=== PATIENT | female | born 1950 | race Caucasian/White ===

== ENCOUNTER 2017-07-16 10:00 | Outpatient (RCR) | payer OTHER, SELFPAY ==
--- NOTE | 2017-03-10 16:22 | HP.PTEVAL_ITS ---
Patient's Visit Information DURAN DEVI is a 66 year old F referred to Physical Therapy by Tu Dotson DO with a diagnosis of right proximal humerus fx ,s/p reverse total shoulder with tuber repair. Date of Evaluation: 03/10/17 Physical Therapist: Cristhian Armando PT, - Visit Plan Frequency: 2x /Week Duration: 12 WEEKS Plan: see PROTOCAL. SLING 6WEEKS. NO SHOULDER IR,ADDUCTION,CROSS BODY MOVEMENTS. FOWARD ELEVATION SCAPATION. ER ARM AT SIDE 30DEGREES,FE 110 DEGRRES ,ABD 75 DEGREES,ER 75 DEGGREES - Subjective Subjective: This 66 y/o female presents to physical therapy with right proximal humerus fx with s/p reverse total shoulder with tubar repair om Feb 25 2017 at [facility]. Patient fell Feb 06 at home walking with dog DOI went to ER x-rays done .Patient also fx 5th finger. Patient was referred to Dr Dotson but needed CATSCAN showed proximal humerus fx. D/C to Feb 27 with sling. Patient is 2weeks post . Patient needs sling on for 6weeks ,x-rays done today every looked good. Patient had musculotaneous nerve palsy. Patient has mild parathesia fingers. Patient is limited with all ADL'S and self hygine witgh right UE. Uble to perform housework activities.Patient sleeps in recliner. SOCAIL: . VOCATION: retired - Pain Right Shoulder Pain Intensity (Out of 10): 0 Pain Intensity Range: 10 - Objective POSTURE: rounded shoulders head foward. SLING INACT. NEUR0: inact c/o parathesia tingling fingers,reflexes inact. SKIN: inscion well approximate. AROM: wrist flexion /extension WFL,unable elbow flexion. PROM: supine shoulder flexion 80 degrees ,ER -10 degrees from 0. MMT : wrist flexion /extension 4-/ 5 bicep 2/5,tricep 3-/5 right - Goals Goal 1:: Independant with HEP Goal Time Frame: 12-16 Weeks Goal 2:: Decrease shoulder pain by 75% or greater to improve function and ADL'S Goal Time Frame: 12-16 Weeks Goal 3:: Patient improve active elevation 110 degrees,ER 75 degrees to improve function. Goal Time Frame: 12-16 Weeks Goal 4:: Patient increase strength deltoid 3+/5 ,and elbow/tricep 4-/5 to improve function with ADL'S . Goal Time Frame: 12-16 Weeks Goal 5:: Patient improve ADL'S and self hygine above 90 degrees with min limiations Goal Time Frame: 12-16 Weeks - Rehabilitation Potential Physical Therapy Diagnosis: This patient fell fx humerus thus underwent s/p reverse total shoulder on Feb 25 2017. thus has impairments with ROM , strength ,function ,ADL'S and self hygine thus benifot from skilled pt Rehabilitation Potential: Good - Anticipated Interventions Patient/Client Instruction: Educate patient on: Condition, Plan of Care For the Purpose of:: To decrease pain, To increase ROM, To improve muscle performance and motor function, To improve ability to perform ADL's, To increase tolerance to activity/condition/position, To improve performance and independence with ADL's, To improve ability of physical actions for home/ community/work/leisure, To improve health of tissue, To decrease soft tissue restriction, To assume or resume ADL's, To improve ability to perform tasks related to life management, To improve tolerance to ADL's Therapeutic Exercise to Include: Strength training, Postural training, Passive ROM, Active ROM Comment: SEE PROTACOL For the Purpose of:: To decrease pain, To improve muscle performance and motor function, To improve ability to perform ADL's, To increase tolerance to activity /condition/position, To improve performance and independence with ADL's, To improve ability of physical actions for home/community/work/leisure, To improve health of tissue, To increase flexibility/ROM, To assume or resume ADL's, To improve ability to perform tasks related to life management Manual Therapy Techniques to Include: Passive ROM Comment: SHOULDER For the Purpose of:: To increase ROM, To increase flexibility/ROM IF ES: Yes Cryotherapy (ice pack, ice massage): Yes Thermo therapy (hot pack): Yes For the Purpose of:: To decrease pain, To decrease swelling/inflammation, To improve health of tissue, To decrease soft tissue restriction Thank you for the opportunity to evaluate your patient. For Medicare and Medicare HMO plans, please review the plan of care and approve it. It will need to be FAXED BACK to us at [phone] for Medicare purposes. Please let me know if there are questions or concerns regarding this plan of care. Physician Signature: Date:
--- NOTE | 2017-07-16 11:33 | HP.PTDCSUM ---
HP - PT D/C Summary It has been my pleasure to treat DURAN DEVI under orders from Tu Dotson DO, for the diagnosis of right proximal humerus fx ,s/p reverse total shoulder with tuber repair for a total of 24 visit(s). Discharge Date: 07/16/17 Please see the following information for a summary of their discharge status. - Subjective Subjective: Doing well ready for d/c. Able to do my ADL'S and self hygine - Pain Right Shoulder Pain Intensity (Out of 10): 0 - Overall Improvement % Improvement: 75 - Objective Objective/Function: POSTURE: mild foward shoulder. AROM: shoulder flexion 13o degrees,abd in scap plane 120 degrees ,ER 50 degrees. MMT: RTC 4/5 ,SUPRS 4-/5 DELTOID ANTERIOR 4-/5/,LATERAL 3+/5,BICEP/TRICEP 4/5 ,WRIST 4/5 - Goals Goal 1:: Independant with HEP Goal Progress: Goal Met Goal 2:: Decrease shoulder pain by 75% or greater to improve function and ADL'S Goal 3:: Patient improve active elevation 110 degrees,ER 75 degrees to improve function. Goal Progress: Goal Met Goal 4:: Patient increase strength deltoid 3+/5 ,and elbow/tricep 4-/5 to improve function with ADL'S . Goal Progress: Goal Met Goal 5:: Patient improve ADL'S and self hygine above 90 degrees with min limiations Goal Progress: Goal Met - Plan Plan: D/C TO HEP - D/C Information Discharge Comments: D/C TO HEP If there are questions or concerns regarding this patient's physical therapy, please feel free to call me at [phone]. Thank you for the referral of this patient. Sincerely, Cristhian Armando, PT,
== END 2017-07-16 19:00 | disposition home or self-care (01) ==
LOC: PT 10:00
PROVIDERS: Family Provider Family Medicine; PCP Family Medicine; Visit Provider Orthopaedic Surgery
DX: S42.201D Unspecified fracture of upper end of right humerus, subsequent encounter for fracture with routine healing (principal)
CPT/HCPCS: 97110; 97140; 97162

== ENCOUNTER → 2017-08-11 09:31 | Outpatient (CLI) | payer MEDICARE, OTHER, SELFPAY ==
--- NOTE | 2017-08-11 09:35 | RAD_ITS ---
STUDY: X-RAY - RIGHT SHOULDER REASON FOR EXAM: Female, 67 years old. Postoperative evaluation. TECHNIQUE: 3 view(s) of the shoulder. COMPARISON: Comparison is made with prior examination dated May 07, 2017. FINDINGS: The patient is status post right reverse shoulder replacement. There is good alignment. The soft tissue structures are unremarkable. Normal visualized pulmonary apex. RAD/Shoulder min 2 Views IMPRESSION: Stable appearance of the right reverse shoulder replacement. Electronically Signed: Pablo Sarmiento MD at 15:55 EST Tel [phone], Service support ,
== END ==
PROVIDERS: Family Provider Family Medicine; PCP Family Medicine; Visit Provider Orthopaedic Surgery
DX: M25.511 Pain in right shoulder (principal)
CPT/HCPCS: 73030

== ENCOUNTER 2018-01-08 13:30 | Outpatient (RCR) | payer MEDICARE, OTHER, SELFPAY | END 2018-01-13 23:59 | LOC: DC 13:30 | PROVIDERS: Family Provider Family Medicine; PCP Family Medicine; Visit Provider Family Medicine | DX: E11.9 Type 2 diabetes mellitus without complications (principal); E03.9 Hypothyroidism, unspecified; E55.9 Vitamin D deficiency, unspecified; E87.1 Hypo-osmolality and hyponatremia | CPT/HCPCS: 97802; G0108 ==

== ENCOUNTER 2018-02-02 09:32 | Outpatient (RCR) | payer MEDICARE, OTHER, SELFPAY | END 2018-02-13 23:59 | LOC: DC 09:32 | PROVIDERS: Family Provider Family Medicine; PCP Family Medicine; Visit Provider Family Medicine | DX: E11.9 Type 2 diabetes mellitus without complications (principal); E03.9 Hypothyroidism, unspecified; E55.9 Vitamin D deficiency, unspecified; E87.1 Hypo-osmolality and hyponatremia; Z71.3 Dietary counseling and surveillance | CPT/HCPCS: 97803 ==

== ENCOUNTER → 2018-03-05 08:14 | Outpatient (CLI) | payer MEDICARE, OTHER, SELFPAY ==
[2018-03-05 09:01] LABS: Absolute Lymphocyte Count 2.44 X10^3/ul (0.83-4.51); Absolute Neutrophil Count 6.8 X10^3/uL (2.0-7.7); Basophil# 0.07 X10^3/uL; Basophil% 0.7 % (0-1); Eosinophil# 0.39 X10^3/uL; Eosinophils% 3.8 % (0-5); Hematocrit 41.7 % (37-47); Hemoglobin 13.8 g/dl (12.0-15.0); Lymphocyte # 2.44 X10^3/ul (4.0); Lymphocyte % 23.6 % (19-41); Mean Corp Hgb Conc 33.1 g/gl (32-36); Mean Corpuscular Volume 84.6 fL (81-99); Mean Platelet Vol. 11.8 fl (6.2-12.0); Monocyte# 0.61 X10^3/uL; Monocyte% 5.9 % (0-10); Neutrophil # 6.83 X10^3/uL (2.7-7.7); Neutrophil % 65.9 % (47-70); Platelet Count 197 K/mm3 (150-450); RBC Distribution Width CV 13.7 % (11.6-14.6); RBC Distribution Width SD 42.1 fl (35.1-43.9); Red Blood Count 4.93 M/mm3 (4.2-5.4); White Blood Count 10.4 K/mm3 (4.4-11.0)
[2018-03-05 09:02] LABS: POSITIVE COUNT NO; POSITIVE DIFFERENTIAL NO; POSITIVE MORPHOLOGY NO
[2018-03-05 09:24] LABS: Microalbumin:Creatinine Ratio 256.3 mg/g CRE (<30 mg/g CRE)
[2018-03-05 09:32] LABS: ALB/GLOB Ratio 0.7 RATIO (0.9-2.4); AST(SGOT) 20 U/L (15-37); Alanine Aminotransfer ALT/SGPT 29 U/L (13-56); Albumin, Serum 3.7 g/dL (3.2-5.0); Alkaline Phosphatase 109 U/L (45-117); Anion Gap 8 (5-15); BUN 12 mg/dL (7-18); BUN/Creat Ratio 20.5 RATIO (10-20); Calcium,Total 9.3 mg/dL (8.5-10.1); Chloride 104 mmol/L (98-107); Cholesterol 178 mg/dL (200); Creatinine, Serum 0.58 mg/dL (0.55-1.02); EST Glomerular Filtration Rate 110 mL/min (>60); Est Glom Filt Rate - Afr Amer 133 mL/min (>60); Glucose 107 mg/dL (74-106); High Density Lipoprotein 50 mg/dL; Potassium 3.8 mmol/L (3.5-5.1); Protein, Total 8.7 g/dL (6.4-8.2); Sodium Level 136 mmol/L (136-145); T4 Free Direct 1.15 ng/dL (0.76-1.46); Thyroid Stim Hormone (TSH) 1.57 uIU/mL (0.358-3.74); Triglycerides 124 mg/dL; Very Low Density Lipoprotein 25 mg/dL (5-40)
[2018-03-05 09:33] LABS: Vitamin D,25 Hydroxy 25.7 ng/mL (29.95-100.01)
== END ==
PROVIDERS: Family Provider Family Medicine; PCP Family Medicine; Visit Provider Family Medicine
DX: E11.9 Type 2 diabetes mellitus without complications (principal); E03.9 Hypothyroidism, unspecified; E87.1 Hypo-osmolality and hyponatremia; E55.9 Vitamin D deficiency, unspecified
CPT/HCPCS: 36415; 80053; 80061; 82043; 82306; 82570; 83036; 84439; 84443; 85025

== ENCOUNTER 2018-03-05 09:00 | Outpatient (RCR) | payer MEDICARE, OTHER, SELFPAY | END 2018-03-15 23:59 | LOC: DC 09:00 | PROVIDERS: Family Provider Family Medicine; PCP Family Medicine; Visit Provider Family Medicine | DX: E11.9 Type 2 diabetes mellitus without complications (principal); E03.9 Hypothyroidism, unspecified; E55.9 Vitamin D deficiency, unspecified; E87.1 Hypo-osmolality and hyponatremia; Z71.3 Dietary counseling and surveillance | CPT/HCPCS: 97803; G0109 ==

== ENCOUNTER → 2018-03-05 14:05 | Outpatient (CLI) | payer MEDICARE, OTHER, SELFPAY ==
--- NOTE | 2018-03-05 14:17 | RAD_ITS ---
STUDY: X-RAY - RIGHT SHOULDER REASON FOR EXAM: Female, 67 years old. Follow-up of total shoulder arthroplasty. TECHNIQUE: 3 view(s) of the shoulder. COMPARISON: August 11, 2017 FINDINGS: The total shoulder arthroplasty is unchanged in position or alignment. There is minimal resorption around the humeral component of the total shoulder arthroplasty unchanged. There is generalized osteopenia unchanged. The soft tissue structures are unremarkable. Normal visualized pulmonary apex. RAD/Shoulder min 2 Views IMPRESSION: Stable osteopenia with uncomplicated total shoulder arthroplasty. Electronically Signed: Adelso Osullivan MD at 18:25 EDT , Service support ,
== END ==
PROVIDERS: Family Provider Family Medicine; PCP Family Medicine; Visit Provider Orthopaedic Surgery
DX: M25.511 Pain in right shoulder (principal); Z71.3 Dietary counseling and surveillance; E11.9 Type 2 diabetes mellitus without complications; E03.9 Hypothyroidism, unspecified; E55.9 Vitamin D deficiency, unspecified; E87.1 Hypo-osmolality and hyponatremia
CPT/HCPCS: 36415; 73030; 80053; 80061; 82043; 82306; 82570; 83036; 84439; 84443; 85025; 97803

== ENCOUNTER 2018-03-19 08:42 | Outpatient (RCR) | payer MEDICARE, OTHER, SELFPAY | END 2018-04-15 23:59 | LOC: DC 08:42 | PROVIDERS: Family Provider Family Medicine; PCP Family Medicine; Visit Provider Family Medicine | DX: E11.9 Type 2 diabetes mellitus without complications (principal); E03.9 Hypothyroidism, unspecified; E55.9 Vitamin D deficiency, unspecified; E87.1 Hypo-osmolality and hyponatremia; Z71.3 Dietary counseling and surveillance | CPT/HCPCS: G0109 ==

== ENCOUNTER 2018-04-22 09:23 | Outpatient (RCR) | payer MEDICARE, OTHER, SELFPAY | END 2018-05-15 23:59 | LOC: DC 09:23 | PROVIDERS: Family Provider Family Medicine; PCP Family Medicine; Visit Provider Family Medicine | DX: E11.9 Type 2 diabetes mellitus without complications (principal); E03.9 Hypothyroidism, unspecified; E55.9 Vitamin D deficiency, unspecified; E87.1 Hypo-osmolality and hyponatremia; Z71.3 Dietary counseling and surveillance | CPT/HCPCS: G0109 ==

== ENCOUNTER 2018-05-20 10:49 | Outpatient (RCR) | payer MEDICARE, OTHER, SELFPAY | END 2018-05-20 23:59 | LOC: DC 10:49 | PROVIDERS: Family Provider Family Medicine; PCP Family Medicine; Visit Provider Family Medicine | DX: E11.9 Type 2 diabetes mellitus without complications (principal); E03.9 Hypothyroidism, unspecified; E55.9 Vitamin D deficiency, unspecified; E87.1 Hypo-osmolality and hyponatremia; Z71.3 Dietary counseling and surveillance | CPT/HCPCS: G0109 ==

== ENCOUNTER → 2018-08-26 07:59 | Outpatient (CLI) | payer MEDICARE, OTHER, SELFPAY ==
[2018-08-26 09:00] LABS: Hemoglobin A1c 8.1 % (4.2-6.3)
[2018-08-26 09:05] LABS: ALB/GLOB Ratio 0.7 RATIO (0.9-2.4); AST(SGOT) 19 U/L (15-37); Alanine Aminotransfer ALT/SGPT 25 U/L (13-56); Albumin, Serum 3.8 g/dL (3.2-5.0); Alkaline Phosphatase 126 U/L (45-117); Anion Gap 9 (5-15); BUN 12 mg/dL (7-18); BUN/Creat Ratio 19.7 RATIO (10-20); Calcium,Total 9.2 mg/dL (8.5-10.1); Chloride 100 mmol/L (98-107); Cholesterol 121 mg/dL (200); Creatinine, Serum 0.61 mg/dL (0.55-1.02); EST Glomerular Filtration Rate 105 mL/min (>60); Est Glom Filt Rate - Afr Amer 126 mL/min (>60); Globulin 5.1 g/dL (2.2-4.2); Glucose 103 mg/dL (74-106); High Density Lipoprotein 45 mg/dL; Protein, Total 8.9 g/dL (6.4-8.2); Sodium Level 134 mmol/L (136-145); Triglycerides 75 mg/dL; Very Low Density Lipoprotein 15 mg/dL (5-40)
[2018-08-26 09:09] LABS: Vitamin D,25 Hydroxy 33.7 ng/mL (29.95-100.01)
[2018-08-26 10:42] LABS: Microalbumin:Creatinine Ratio 280.8 mg/g CRE (<30 mg/g CRE)
[2018-08-27 16:08] LABS: PROEL- A/G Ratio 0.8 (0.7-1.7); PROEL- Albumin 3.6 g/dL (2.9-4.4); PROEL- Alpha-1 Globulin 0.3 g/dL (0.0-0.4); PROEL- Alpha-2 Globulin 1.1 g/dL (0.4-1.0); PROEL- Beta Globulin 1.2 g/dL (0.7-1.3); PROEL- Gamma Globulin 2.2 g/dL (0.4-1.8); PROEL- Globulin, Total 4.8 g/dL (2.2-3.9); PROEL- TOTAL PROTEIN 8.4 g/dL (6.0-8.5)
[2018-08-28 16:08] LABS: PROELU- Alpha-1-Globulin,Ur 5.3 % (.); PROELU- Alpha-2-Globulin,Ur 9.6 % (.); PROELU- Beta Globulin, Ur 11.6 % (.); PROELU- Gamma Globulin, Ur 7.5 % (.); Total Protein, Ur 18.2 mg/dL (Not Estab.)
== END ==
PROVIDERS: Family Provider Family Medicine; PCP Family Medicine; Referring Provider Family Medicine; Visit Provider Family Medicine
DX: Z00.01 Encounter for general adult medical examination with abnormal findings (principal); E11.9 Type 2 diabetes mellitus without complications; E55.9 Vitamin D deficiency, unspecified; R77.1 Abnormality of globulin
CPT/HCPCS: 36415; 80053; 80061; 82043; 82306; 82570; 83036; 84165; 84166

== ENCOUNTER → 2019-02-25 08:20 | Outpatient (CLI) | payer MEDICARE, OTHER, SELFPAY ==
[2019-02-25 10:23] LABS: ALB/GLOB Ratio 0.7 RATIO (0.9-2.4); AST(SGOT) 24 U/L (15-37); Alanine Aminotransfer ALT/SGPT 30 U/L (13-56); Albumin, Serum 3.8 g/dL (3.2-5.0); Alkaline Phosphatase 129 U/L (45-117); Anion Gap 7 (5-15); BUN 13 mg/dL (7-18); BUN/Creat Ratio 20.2 RATIO (10-20); Calcium,Total 9.4 mg/dL (8.5-10.1); Chloride 104 mmol/L (98-107); Cholesterol 191 mg/dL (200); Creatinine, Serum 0.64 mg/dL (0.55-1.02); EST Glomerular Filtration Rate 98 mL/min (>60); Est Glom Filt Rate - Afr Amer 118 mL/min (>60); Globulin 5.3 g/dL (2.2-4.2); Glucose 80 mg/dL (74-106); High Density Lipoprotein 43 mg/dL; Potassium 4.1 mmol/L (3.5-5.1); Protein, Total 9.1 g/dL (6.4-8.2); Sodium Level 137 mmol/L (136-145); Triglycerides 154 mg/dL; Very Low Density Lipoprotein 31 mg/dL (5-40)
[2019-02-25 10:25] LABS: Hemoglobin A1c 8.3 % (4.2-6.3); Microalbumin:Creatinine Ratio 292.9 mg/g CRE (<30 mg/g CRE)
[2019-03-01 16:07] LABS: Immunoglobulin A 409 mg/dL (87-352); Immunoglobulin G 2063 mg/dL (700-1600); PROEL- A/G Ratio 0.8 (0.7-1.7); PROEL- Albumin 3.6 g/dL (2.9-4.4); PROEL- Alpha-1 Globulin 0.2 g/dL (0.0-0.4); PROEL- Beta Globulin 1.2 g/dL (0.7-1.3); PROEL- Gamma Globulin 2.2 g/dL (0.4-1.8); PROEL- Globulin, Total 4.6 g/dL (2.2-3.9); PROEL- TOTAL PROTEIN 8.2 g/dL (6.0-8.5); PROELU- Albumin, Urine 69.1 % (.); PROELU- Alpha-1-Globulin,Ur 3.5 % (.); PROELU- Alpha-2-Globulin,Ur 7.9 % (.); PROELU- Beta Globulin, Ur 12.3 % (.); PROELU- Gamma Globulin, Ur 7.2 % (.); Total Protein, Ur 23.3 mg/dL (Not Estab.)
[2019-03-02 10:41] LABS: Immunofixation Result, Serum Comment: (.); Immunoglobulin M 144 mg/dL (26-217)
== END ==
PROVIDERS: Family Provider Family Medicine; PCP Family Medicine; Referring Provider Family Medicine; Visit Provider Family Medicine
DX: E11.21 Type 2 diabetes mellitus with diabetic nephropathy (principal); D89.2 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, unspecified
CPT/HCPCS: 36415; 80053; 80061; 82043; 82570; 82784; 83036; 84165; 84166; 86334

== ENCOUNTER → 2021-10-11 | Outpatient (CLI) | payer MEDICARE, OTHER, SELFPAY ==
[2021-10-11 16:34] LABS: Pathologist Comment May follow
[2021-10-11 17:25] LABS: Synovial Fld Mononuclear WBC # 3.692 10^3/ul; Synovial Fld Mononuclear WBC % 13.1 %; Synovial Fld Polynuclear WBC % 86.9 %
[2021-10-11 18:30] LABS: RBC /Synovial Fluid 0.004 10^6/uL (0)
[2021-10-11 19:02] LABS: AUTO B FLUID DILUENT BKGD CT WBC <0.1 RBC <0.01 (W<.1,R<.01); Source / Synovial Fluid LEFT KNEE; Source- Body Fluid SYNOVIAL; Viscosity / Synovial Fluid Sl. Viscous (HIGH)
[2021-10-11 19:03] LABS: Appearance /Synovial Fluid Cloudy (CLEAR); Color / Synovial Fluid Yellow (Pale Yellow)
[2021-10-11 19:10] LABS: Lymph 7 %; Monocyte /Synovial Fluid 16 %; Neutrophil 77 % (0-25)
[2021-10-11 19:13] LABS: Body Fluid QC Type(s) BF3Q,BF4Q
[2021-10-14 20:26] LABS: Pathologist Review Reviewed
[2021-10-15 08:49] LABS: PROTEIN, SYNOVIAL FLUID 4.9 g/dL (.)
== END | disposition home or self-care (01) ==
LOC: LABSPEC 16:33
PROVIDERS: PCP Family Medicine; Visit Provider Nurse Practitioner
DX: M17.12 Unilateral primary osteoarthritis, left knee (principal); M25.562 Pain in left knee
CPT/HCPCS: 84157; 89050; 89051; 89060

== ENCOUNTER 2021-11-29 09:49 | Inpatient (IN) | payer MEDICARE, OTHER, SELFPAY ==
[2021-11-29] VITALS (24 sets, daily range): BP systolic 91–178; BP diastolic 54–119; PULSE 60–157; RESP 16–33; TEMP 36.1–36.6; O2SAT 96–100; BMI 27.4; BMI 23.5
--- NOTE | 2021-11-29 10:08 | EKG12_ITS ---
Test Reason : REPEAT Blood Pressure : / mmHG Vent. Rate : 154 BPM Atrial Rate : 141 BPM P-R Int : 000 ms QRS Dur : 094 ms QT Int : 326 ms P-R-T Axes : 000 031 238 degrees QTc Int : 522 ms Atrial fibrillation Marked ST abnormality, possible inferior subendocardial injury Marked ST abnormality, possible anterolateral subendocardial injury Abnormal ECG Confirmed by VICTOR HUGO CROSS, CRISTINA ([id number]), material expeditor NATI HUGO ([id number]) on 11/30/2021 8:58:29 AM Referred By: GERSON Confirmed By:CRISTINA GAY MD
--- NOTE | 2021-11-29 10:08 | RAD_ITS ---
STUDY: X-RAY CHEST REASON FOR EXAM: Female, 71 years old. Dyspnea TECHNIQUE: Single AP portable view of the chest. COMPARISON: None. FINDINGS: EKG electrodes are seen. Mild increased markings at the left lung base suggestive of either atelectasis and/or early infiltrate. There is no demonstrated pleural abnormality. Normal size heart. Normal mediastinum and batool. Normal visualized pulmonary arteries. There is atherosclerotic tortuosity of the aortic arch and descending thoracic aorta. There are diffuse degenerative changes of the visualized thoracic spine. Status post right shoulder replacement. There is no demonstrated abnormality of the visualized soft tissue structures of the upper abdomen. RAD/Chest 1 View (Portable) IMPRESSION: Mild increased markings at the left lung base suggestive of bibasilar atelectasis and/or infiltrate. Electronically Signed: Pablo Sarmiento MD at 11:10 EDT ,
--- NOTE | 2021-11-29 10:09 | EX.ED.DYSGE1 ---
HPI History of Present Illness Chief Complaint: Shortness of Breath Informant: patient and spouse/S.O. Narrative Narrative: 71-year-old male presents to the emergency room in the company of her with a chief complaint of I am tired. She and her are very poor historians and from what I can elicit is that 1 month ago she had an arthrocentesis of her knee. Following that she has become progressively weaker and is not hungry and is very thirsty. Today she felt short of breath. She denies any cough or fever. She notes that she is urinating normally. She has not called any of her doctors to evaluate this weakness. No recent drug changes. She states her blood sugars have been reading high. [facility] Medical History Diabetes Osteoarthritis of left knee Thyroid disease Home Medications levothyroxine 137 mcg tablet 137 mcg PO QODAY 02/06/17 [History Last Taken Unknown] levothyroxine 150 mcg tablet 150 mcg PO QODAY 02/06/17 [History Last Taken 02/25/17 07:00] insulin aspart U-100 100 unit/mL (3 mL) subcutaneous pen (Novolog Flexpen U-100 Insulin aspart) 12 unit subcut BID 10/11/21 [History Last Taken Unknown] insulin detemir U-100 100 unit/mL (3 mL) subcutaneous pen (Levemir FlexTouch U-100 Insulin) 38 unit subcut QHS 10/11/21 [History Last Taken Unknown] Allergy/AdvReac Type Severity Reaction Status Date / Time EGGS Allergy Vomiting Uncoded 11/29/21 09:50 Family History Mother Diabetes Heart disease Father Diabetes Cancer Throat cancer Surgical History H/O: s/p right shoulder surgery Social History (Updated 11/29/21 @ 10:[address] Devin Leal DO) Smoking Status: Former smoker substance use type: does not use ROS ROS ED ROS Narrative Generalized fatigue Constitutional Constitutional ED: Denies chills, fever(s) or weight loss Eyes Eyes: Denies change in vision or diplopia ENT ENT ED: Denies ear pain, rhinorrhea or sore throat Cardiovascular Cardiovascular: Denies chest pain, orthopnea, palpitations or racing heartbeat Respiratory/Chest Respiratory/Chest: Reports dyspnea; Denies cough or orthopnea Gastrointestinal Gastrointestinal: Reports constipation; Denies abdominal pain, diarrhea, nausea or vomiting Genitourinary Genitourinary ED: Denies dysuria, hematuria or urinary frequency Musculoskeletal Musculoskeletal: Reports arthralgias; Denies myalgias or neck pain Integumentary Denies abscess or rash Neurologic Neurologic: Denies headache(s) or weakness Psychiatric Psychiatric: Denies anxiety, depression, suicidal ideation or suicidal thoughts Endocrine Endocrinology: Denies polydipsia, polyphagia or polyuria Allergic/Immunologic Allergic/Immunologic ED: Denies mouth swelling, tongue swelling or urticaria EXAM Physical Exam Const Vital Signs: 11/29/21 09:50 11/29/21 10:37 11/29/21 11:03 Temperature 96.9 F L Temperature Source Temporal Pulse Rate 113 H 118 H Respiratory Rate 26 H 33 H Respiratory Effort Short of Breath Respiratory Pattern Kussmaul Blood Pressure 178/71 H 117/72 Blood Pressure Mean 106 87 Pulse Ox 98 99 Oxygen Delivery Method Room Air Room Air 11/29/21 11:41 Temperature Temperature Source Pulse Rate 143 H Respiratory Rate 30 H Respiratory Effort Respiratory Pattern Blood Pressure 117/72 Blood Pressure Mean 87 Pulse Ox 99 Oxygen Delivery Method Positive well nourished and well developed General Appearance ED: well developed HEENT Reports normocephalic, head/scalp atraumatic and moist mucous membranes Eyes PERRL and EOMs intact bilaterally Neck no lymphadenopathy, supple and no JVD Resp clear to auscultation bilaterally Resp Narrative: Patient appears dyspneic respiratory rate around 30 Cardio regular rhythm and no murmurs Rate: tachycardic GI normal to inspection, nondistended, normoactive bowel sounds and non-tender Palpation: soft Back/Spine no CVA tenderness and normal ROM Extremity normal to inspection General Extremety ED: Negative for edema General Extremity: Negative for edema Neuro oriented x3 and CN's II-XII intact bilaterally Sensorium / Orientation: alert Motor Exam: strength 5/5 throughout Psych mental status grossly normal Mood & Affect: Negative for depressed or tearful Skin no rashes or lesions noted and no wounds MDM MDM MDM Narrative Medical decision making narrative: IV established and the patient received IV fluids. Blood sugar is reading high. White count at 23.1 hemoglobin 13.5. Potassium 4.7 with a sodium of 127. CO2 of 3 anion gap of 38 creatinine 1.34 blood glucose 771. Lactic acid did a full 0.55 knees and 2.4 ketones are positive. During fluid resuscitation stage the patient went into atrial fibrillation with RVR. She was given Cardizem bolus and placed on a drip. 2 L of normal saline was given and the patient was started on insulin drip. Was noted that her TSH is also significantly elevated at 23. Plan is the patient will be admitted into the ICU. Hospitalist and senior abap developer will be contacted. Lab Data Attestation: I reviewed the patient's lab results. Labs: Laboratory Results - last 24 hr 11/29/21 11/29/21 11/29/21 10:30 10:30 10:30 WBC 23.1 H RBC 4.81 Hgb 13.5 Hct 45.7 MCV 95.0 MCH 28.1 MCHC 29.5 L RDW Std Deviation 50.2 H RDW Coeff of Mateus 14.5 Plt Count 458 H MPV 12.1 H Immature Gran % (Auto) 4.800 H Neut % (Auto) 76.9 H Lymph % (Auto) 13.6 L [place] % (Auto) 3.1 Eos % (Auto) 0.3 Baso % (Auto) 1.3 H Absolute Neuts (auto) 17.8 H Absolute Lymphs (auto) 3.15 Nucleated RBC % 0 PT INR APTT Sodium 127 L Potassium 4.7 Chloride 94 L Carbon Dioxide 3.0 L* Anion Gap 30 H BUN 28 H Creatinine 1.34 H Estim Creat Clear Calc 34.22 Est GFR (MDRD) Af Amer 50 L Est GFR (MDRD) Non-Af 42 L BUN/Creatinine Ratio 20.9 H Glucose 771 H* Lactic Acid Calcium 9.4 Magnesium 2.4 Total Bilirubin 0.40 AST 18 ALT 25 Alkaline Phosphatase 185 H Troponin I High Sens 40 Total Protein 9.0 H Albumin 3.8 Globulin 5.2 H Albumin/Globulin Ratio 0.7 L TSH 26.60 H Urine Color Urine Clarity Urine pH Ur Specific St[place] Urine Protein Urine Glucose (UA) Urine Ketones Urine Occult Blood Urine Nitrite Urine Bilirubin Urine Urobilinogen Ur Leukocyte Esterase Urine RBC Urine WBC Ur Squamous Epith Cells Urine Bacteria Urine Mucus POC Glucose 11/29/21 11/29/21 11/29/21 10:54 11:14 11:14 WBC RBC Hgb Hct MCV MCH MCHC RDW Std Deviation RDW Coeff of Mateus Plt Count MPV Immature Gran % (Auto) Neut % (Auto) Lymph % (Auto) [place] % (Auto) Eos % (Auto) Baso % (Auto) Absolute Neuts (auto) Absolute Lymphs (auto) Nucleated RBC % PT 15.6 H INR 1.3 APTT 34.1 Sodium Potassium Chloride Carbon Dioxide Anion Gap BUN Creatinine Estim Creat Clear Calc Est GFR (MDRD) Af Amer Est GFR (MDRD) Non-Af BUN/Creatinine Ratio Glucose Lactic Acid 4.5 H* Calcium Magnesium Total Bilirubin AST ALT Alkaline Phosphatase Troponin I High Sens Total Protein Albumin Globulin Albumin/Globulin Ratio TSH Urine Color Urine Clarity Urine pH Ur Specific [place] Urine Protein Urine Glucose (UA) Urine Ketones Urine Occult Blood Urine Nitrite Urine Bilirubin Urine Urobilinogen Ur Leukocyte Esterase Urine RBC Urine WBC Ur Squamous Epith Cells Urine Bacteria Urine Mucus POC Glucose > 500 H* 11/29/21 11:28 WBC RBC Hgb Hct MCV MCH MCHC RDW Std Deviation RDW Coeff of Mateus Plt Count MPV Immature Gran % (Auto) Neut % (Auto) Lymph % (Auto) [place] % (Auto) Eos % (Auto) Baso % (Auto) Absolute Neuts (auto) Absolute Lymphs (auto) Nucleated RBC % PT INR APTT Sodium Potassium Chloride Carbon Dioxide Anion Gap BUN Creatinine Estim Creat Clear Calc Est GFR (MDRD) Af Amer Est GFR (MDRD) Non-Af BUN/Creatinine Ratio Glucose Lactic Acid Calcium Magnesium Total Bilirubin AST ALT Alkaline Phosphatase Troponin I High Sens Total Protein Albumin Globulin Albumin/Globulin Ratio TSH Urine Color Yellow Urine Clarity Sl. Cloudy Urine pH 5.0 Ur Specific [place] 1.025 Urine Protein 30 H Urine Glucose (UA) 1000 H Urine Ketones 150 A* Urine Occult Blood 25 H Urine Nitrite Negative Urine Bilirubin Negative Urine Urobilinogen Normal Ur Leukocyte Esterase Negative Urine RBC 0-5 SEEN Urine WBC 0 SEEN Ur Squamous Epith Cells 0 SEEN Urine Bacteria 0 SEEN Urine Mucus 0 SEEN POC Glucose Radiography Diagnostic Testing: Clinical Impression(s) from Imaging Studies Chest X-Ray 11/29/21 10:08 IMPRESSION: Mild increased markings at the left lung base suggestive of bibasilar atelectasis and/or infiltrate. Electronically Signed: Pablo Sarmiento MD at 11:10 EDT , EKG Follow-up EKG: Attestation: I personally reviewed and interpreted this EKG as follows: Comments: Atrial fibrillation with rapid ventricular response of 154 bpm Initial EKG: Attestation: I personally reviewed and interpreted this EKG as follows: Interpretation: Sinus Tachycardia Comments: Sinus tachycardia with a ventricular rate of 103 bpm Critical Care Time Critical Care Time: Yes Critical care time (excluding procedures): 30-74 minutes (35 min), Including time spent:, Discussing w/Patient &/or Family/Professor Of Astronomy, Discussing w/Consultants, Arranging Admission or Transfer and Performing Direct Patient Care at Bedside Discharge Plan Dx/Rx/DC Orders Clinical Impression: DKA (diabetic ketoacidosis), New onset a-fib, Elevated TSH Disposition Disposition: Acute Care [facility]
[2021-11-29] MEDS: 0.9% Normal Saline 1,000 ML 999 ML IV ×2 (10:39→11:46)
[2021-11-29 10:43] LABS: Absolute Lymphocyte Count 3.15 X10^3/uL (0.83-4.51); Absolute Neutrophil Count 17.8 X10^3/uL (2.0-7.7); Basophil# 0.29 X10^3/uL; Basophil% 1.3 % (0-1); Eosinophil# 0.08 X10^3/uL; Eosinophils% 0.3 % (0-5); Hematocrit 45.7 % (37-47); Hemoglobin 13.5 g/dL (12.0-15.0); Lymphocyte # 3.15 X10^3/ul (0.83-4.51); Lymphocyte % 13.6 % (19-41); Mean Corp Hgb Conc 29.5 g/dL (32-36); Mean Corpuscular Hgb 28.1 pg (27.0-32.0); Mean Platelet Vol. 12.1 fl (6.2-12.0); Monocyte# 0.71 X10^3/uL; Monocyte% 3.1 % (0-10); NRBC Flagged by Analyzer 0 % (0-5); Neutrophil # 17.77 X10^3/uL (2.7-7.7); Neutrophil % 76.9 % (47-70); Platelet Count 458 K/mm3 (150-450); RBC Distribution Width CV 14.5 % (11.6-14.6); RBC Distribution Width SD 50.2 fl (35.1-43.9); Red Blood Count 4.81 M/mm3 (4.2-5.4); White Blood Count 23.1 K/mm3 (4.4-11.0)
--- NOTE | 2021-11-29 10:44 | EKG12_ITS ---
Test Reason : SOB Blood Pressure : / mmHG Vent. Rate : 103 BPM Atrial Rate : 103 BPM P-R Int : 176 ms QRS Dur : 086 ms QT Int : 370 ms P-R-T Axes : 072 010 064 degrees QTc Int : 484 ms Sinus tachycardia Nonspecific ST and T wave abnormality Abnormal ECG Confirmed by VICTOR HUGO CROSS, CRISTINA ([id number]), supervising film or videotape editor NATI HUGO ([id number]) on 11/30/2021 8:59:46 AM Referred By: Confirmed By:CRISTINA GAY MD
[2021-11-29 11:00] LABS: Bedside Glucose > 500 mg/dL (74-106)
[2021-11-29] MEDS: dilTIAZem 25 MG/5 ML Vial 10 MG IV BOLUS (11:01)
[2021-11-29 11:04] LABS: Magnesium 2.4 mg/dL (1.6-2.6)
[2021-11-29 11:14] LABS: ALB/GLOB Ratio 0.7 RATIO (0.9-2.4); AST(SGOT) 18 U/L (15-37); Alanine Aminotransfer ALT/SGPT 25 U/L (13-56); Albumin, Serum 3.8 g/dL (3.2-5.0); Alkaline Phosphatase 185 U/L (45-117); Anion Gap 30 (5-15); BUN 28 mg/dL (7-18); BUN/Creat Ratio 20.9 RATIO (10-20); Calcium,Total 9.4 mg/dL (8.5-10.1); Chloride 94 mmol/L (98-107); Creatinine, Serum 1.34 mg/dL (0.55-1.02); EST Glomerular Filtration Rate 42 mL/min (>60); Est Glom Filt Rate - Afr Amer 50 mL/min (>60); Estimated Creatinine Clearance 34.22 ml/min; Globulin 5.2 g/dL (2.2-4.2); Glucose 771 mg/dL (74-106); Potassium 4.7 mmol/L (3.5-5.1); Sodium Level 127 mmol/L (136-145); Troponin-I HS 40 pg/mL (3.0-54.0)
[2021-11-29 11:39] LABS: International Normalized Ratio 1.3; Prothrombin Time (Protime)PT. 15.6 SECONDS (11.7-14.9)
[2021-11-29 11:40] LABS: Partial Thromboplast Time 34.1 Seconds (24.1-36.2)
[2021-11-29 11:42] LABS: Bacteria 0 SEEN /hpf (None Seen); Mucous, Urine 0 SEEN /hpf (<or=2+); Squamous Epithelial Cells - UA 0 SEEN /hpf (5-10); White Blood Cells 0 SEEN /hpf (0-5)
[2021-11-29 11:46] LABS: Color, Urine Yellow (Yellow); Glucose, Dipstick 1000 mg/dl (Normal); Leukocyte Esterase-Dipstick Negative /ul (Negative); Nitrite-Dipstick Negative (Negative); Occult Blood-Urine 25 /ul (Negative); Protein-Dipstick 30 mg/dl (Negative); Specific Gravity, Urine 1.025 (1.002-1.030); Urine Bilirubin Dipstick Negative (Negative); Urine Clarity Sl. Cloudy (Clear); Urine Urobilinogen Normal (Normal)
[2021-11-29 11:52] LABS: Ketone-Dipstick 150 mg/dl (Negative)
[2021-11-29 11:54] LABS: Lactic Acid 4.5 mmol/L (0.4-1.9)
[2021-11-29 11:54] LABS: Red Blood Cells-Urine 0-5 SEEN /hpf (0-5)
--- NOTE | 2021-11-29 12:11 | CPS ---
Critical ABG values noted, Dr. Leal aware. Not enough blood to rerun.
[2021-11-29 12:17] LABS: Allen Test Positive; Blood Gas Specimen Type ART; PO2 157 mmHG (75-100); SITE R Radial; pCO2 < 5.0 mmHg (35-45); pH 6.98 (7.35-7.45)
[2021-11-29] MEDS: 0.9% Normal Saline 1,000 ML 250 ML IV ×2 (12:38→14:04)
--- NOTE | 2021-11-29 12:44 | ED.RN ---
, Mir, notified of patient being admitted to ICU.
--- NOTE | 2021-11-29 12:56 | CON.PCM.CC_ITS ---
Assessment & Plan Assessment/Plan (1) DKA (diabetic ketoacidosis): (2) New onset a-fib: PLAN: Plan RECOMMENDATIONS: 1. Check free T4 level. 2. Additional supplemental IV fluid hydration and continuous insulin infusion per DKA protocol. 3. Aggressive electrolyte repletion. 4. Obtain and send blood cultures. 5. Start empiric antimicrobials. IMPRESSIONS: 1. Diabetic ketoacidosis The patient presented to the hospital with DKA. Although no definitive infectious etiology has yet to be identified, I am going to place her emp irically on antimicrobials and obtain blood cultures, should the patient's recent joint effusion represent some form of infection. In addition, it is certainly possible that the patient may blossom out an infiltrate on chest imaging following fluid resuscitation. She appears quite ill. Nevertheless, any evidence of organ dysfunction could certainly be secondary to intravascular volume depletion in the setting of diabetic ketoacidosis with further vital sign perturbations related to suboptimally treated hypothyroidism. For now, I agree with fluid resuscitation per DKA protocol along with insulin infusion and aggressive electrolyte repletion. 2. New onset atrial fibrillation with RVR The patient did develop atrial fibrillation with RVR while in the emergency d epartment. This could be related to her hypothyroidism, as she does have a significantly elevated TSH. We will plan to check free T4. Continue aggressive electrolyte repletion and rate control strategy with Cardizem. 3. Acute kidney injury/anion gap metabolic acidosis Secondary to prerenal azotemia in the setting of #1. Anticipate improvement in renal function with IV fluid resuscitation. Continue current supportive measures and continue to monitor urine output. There is no current indication for renal replacement therapy. 4. History of hypothyroidism Complicates care, management, recovery and prognosis. In light of the patient's elevated TSH, will check free T4 level. In the interim, continue levothyroxine per home regimen. This may require additional titration, depending on the free T4 level. This note was generated with [employer] dictation software. It may contain incorrect words, spelling, and punctuation that were not noted in checking the note before signing. HPI Consult Data Date of Consult: 11/30/21 HPI Narrative Reason for Consultation: Diabetic ketoacidosis, atrial fibrillation with RVR HPI Narrative: The patient is a 71-year-old female, with a history as outlined below, who presented to the emergency department on November 29 with generalized weakness, fatigue, shortness of breath and poor p.o. intake. The patient was evaluated in the orthopedic clinic at the end of September with left knee swelling, for which she underwent an office-based arthrocentesis. She has apparently been not doing well since that time. The patient does have a known history of diabetes mellitus and hypothyroidism. On presentation to the emergency department, the patient was noted to be afebrile but was tachycardic and tachypneic. Initial laboratory evaluation revealed a sodium of 127, chloride of 94, bicarbonate of 3.0, anion gap of 30, BUN of 28 and creatinine of 1.34. Glucose was elevated to 771. Lactate was elevated at 4.5. TSH was elevated at 26.6. Urinalysis was unremarkable. Large serum acetone level was noted. Chest x-ray was largely unrevealing. While being fluid resuscitated in the emergency department, the patient developed atr ial fibrillation with RVR. She was subsequently placed on a Cardizem drip. The patient was initiated on an insulin infusion and admitted to the medical intensive care unit for further management. Although the patient is alert, she appears quite ill and is not readily forthcoming with information or conversant. [facility] Medical History Diabetes Osteoarthritis of left knee Thyroid disease Home Medications levothyroxine 137 mcg tablet 137 mcg PO QODAY 02/06/17 [History Last Taken Unknown] levothyroxine 150 mcg tablet 150 mcg PO QODAY 02/06/17 [History Last Taken 02/25/17 07:00] insulin aspart U-100 100 unit/mL (3 mL) subcutaneous pen (Novolog Flexpen U-100 Insulin aspart) 12 unit subcut BID 10/11/21 [History Last Taken Unknown] insulin detemir U-100 100 unit/mL (3 mL) subcutaneous pen (Levemir FlexTouch U- 100 Insulin) 38 unit subcut QHS 10/11/21 [History Last Taken Unknown] Allergy/AdvReac Type Severity Reaction Status Date / Time EGGS Allergy Vomiting Uncoded 11/29/21 09:50 Family History Mother Diabetes Heart disease Father Diabetes Cancer Throat cancer Surgical History H/O: s/p right shoulder surgery Social History Smoking Status: Former smoker substance use type: does not use ROS Review of Systems ROS Unobtainable: due to mental status Physical Exam Const alert General Appearance: in distress and ill appearing HEENT normocephalic and head/scalp atraumatic Mouth: dry mucous membranes Eyes PERRL and EOMs intact bilaterally Neck supple General: trachea midline Chest inspection of chest normal Resp Effort and Inspection: tachypneic Auscultation: rales and diminished lung sounds Cardio S1 normal heart sound and S2 normal heart sound Rate: tachycardic Rhythm: abnormal rhythm GI normal to inspection, nondistended, normoactive bowel sounds Extremity no clubbing, cyanosis or edema Skin no rashes or lesions noted Neuro no focal motor deficits Psych Mood & Affect: flat affect Lab / Micro Data Result Diagrams: 11/30/21 05:05 11/30/21 05:05 Labs: Laboratory Results - last 24 hr 11/29/21 10:30: WBC 23.1 H, RBC 4.81, Hgb 13.5, Hct 45.7, MCV 95.0, MCH 28.1, MCHC 29.5 L, RDW Std Deviation 50.2 H, RDW Coeff of Mateus 14.5, Plt Count 458 H, MPV 12.1 H, Immature Gran % (Auto) 4.800 H, Neut % (Auto) 76.9 H, Lymph % (Auto) 13.6 L, [place] % (Auto) 3.1, Eos % (Auto) 0.3, Baso % (Auto) 1.3 H, Absolute Neuts (auto) 17.8 H, Absolute Lymphs (auto) 3.15, Nucleated RBC % 0 11/29/21 10:30: Sodium 127 L, Potassium 4.7, Chloride 94 L, Carbon Dioxide 3.0 L*, Anion Gap 30 H, BUN 28 H, Creatinine 1.34 H, Estim Creat Clear Calc 34.22, Est GFR (MDRD) Af Amer 50 L, Est GFR (MDRD) Non-Af 42 L, BUN/Creatinine Ratio 20.9 H, Glucose 771 H*, Calcium 9.4, Total Bilirubin 0.40, AST 18, ALT 25, Alkaline Phosphatase 185 H, Troponin I High Sens 40, Total Protein 9.0 H, Albumin 3.8, Globulin 5.2 H, Albumin/Globulin Ratio 0.7 L, TSH 26.60 H 11/29/21 10:30: Magnesium 2.4 11/29/21 10:54: POC Glucose > 500 H* 11/29/21 11:14: PT 15.6 H, INR 1.3, APTT 34.1 11/29/21 11:14: Acetone Level LARGE H 11/29/21 11:14: Lactic Acid 4.5 H* 11/29/21 11:28: Urine Color Yellow, Urine Clarity Sl. Cloudy, Urine pH 5.0, Ur Specific [place] 1.025, Urine Protein 30 H, Urine Glucose (UA) 1000 H, Urine Ketones 150 A*, Urine Occult Blood 25 H, Urine Nitrite Negative, Urine Bilirubin Negative, Urine Urobilinogen Normal, Ur Leukocyte Esterase Negative, Urine RBC 0-5 SEEN, Urine WBC 0 SEEN, Ur Squamous Epith Cells 0 SEEN, Urine Bacteria 0 SEEN, Urine Mucus 0 SEEN ABG Data ABG results: ABG 11/29/21 11:50 Specimen Type ART Sample Site R Radial pH 6.98 L* Bicarbonate Actual TNP Total CO2 TNP Base Excess TNP O2 Saturation TNP ABG pCO2 < 5.0 L* ABG pO2 157 H Driss Test Positive Crit Call To/Read Back Yes Radiology Impression Chest X-Ray 11/29/21 10:08 IMPRESSION: Mild increased markings at the left lung base suggestive of bibasilar atelectasis and/or infiltrate. Electronically Signed: Pablo Sarmiento MD at 11:10 EDT , Charges/Coding Visit Charges Inpatient E&M: 62235 Init Hosp L3
[2021-11-29] MEDS: Metoprolol Tartrate 5 MG/5 ML Vial IV (13:00)
--- NOTE | 2021-11-29 13:10 | PCM.HP.STD ---
HPI - General General Date of Admission: 11/29/21 Date of Service: 11/29/21 Chief Complaint: Generalized weakness, short of breath, tiredness/altered mental status HPI Narrative DURAN DEVI, is a 71 F who came to ED with nonspecific complaints of generalized weakness, tiredness but found short of breath, tachycardic, hypertensive in triage vitals. Patient is not hypoxic. Afebrile. Soon patient went into A. fib RVR and was given 10 mg Cardizem bolus and started on Cardizem drip. When I saw the patient, she could not give meaningful history or chronology of the events but he states she is tired and short of breath. She denies any recent onset of fever, palpitation, chest pain or pressure or tightness. Denies dysuria/burning micturition or abdominal pain. She was seen in orthopedic clinic by Mel nurse practitioner and had left knee arthrocentesis. At that time patient also had finished steroid pack prior to arthrocentesis. In ED, initial labs shows severe high anion gap metabolic acidosis with pH of 6.98, PCO2 less than 5, PO2 157. Bicarb 3.0 on BMP, sodium 127, BUN/creatinine 28/1.34. Anion gap 30. Lactic acid 4.5, glucose 771. Leukocytosis 23.1 thousand, mainly left shift with high neutrophil count and thrombocytosis In ED, patient on third liter of IV fluid normal saline bolus, insulin drip running and on Cardizem drip. Patient is still tachycardic heart rate 125, A. fib RVR and I ordered 5 mg IV metoprolol. [facility] Medical History Diabetes Osteoarthritis of left knee Thyroid disease Home Medications levothyroxine 137 mcg tablet 137 mcg PO QODAY 02/06/17 [History Last Taken Unknown] levothyroxine 150 mcg tablet 150 mcg PO QODAY 02/06/17 [History Last Taken 02/25/17 07:00] insulin aspart U-100 100 unit/mL (3 mL) subcutaneous pen (Novolog Flexpen U-100 Insulin aspart) 12 unit subcut BID 10/11/21 [History Last Taken Unknown] insulin detemir U-100 100 unit/mL (3 mL) subcutaneous pen (Levemir FlexTouch U-100 Insulin) 38 unit subcut QHS 10/11/21 [History Last Taken Unknown] Allergy/AdvReac Type Severity Reaction Status Date / Time EGGS Allergy Vomiting Uncoded 11/29/21 09:50 Family History Mother Diabetes Heart disease Father Diabetes Cancer Throat cancer Surgical History H/O: s/p right shoulder surgery Social History Smoking Status: Former smoker substance use type: does not use ROS ROS Narrative Patient had 1 vomiting yesterday. Rest 14 ROS unobtainable as patient is confused, short of breath and could not recall. She looks very sick Review of Systems ROS Unobtainable: due to encephalopathy Vital Signs Vital Signs Vital Signs: 11/29/21 09:50 11/29/21 10:37 11/29/21 11:03 Temperature 96.9 F L Temperature Source Temporal Pulse Rate 113 H 118 H Respiratory Rate 26 H 33 H Respiratory Effort Short of Breath Respiratory Pattern Kussmaul Blood Pressure 178/71 H 117/72 Blood Pressure Mean 106 87 Pulse Ox 98 99 Oxygen Delivery Method Room Air Room Air 11/29/21 11:41 11/29/21 12:00 11/29/21 12:00 Temperature 97.3 F L Temperature Source Temporal Pulse Rate 143 H 141 H 141 H Respiratory Rate 30 H 31 H 31 H Respiratory Effort Respiratory Pattern Blood Pressure 117/72 127/54 H 127/54 H Blood Pressure Mean 87 78 78 Pulse Ox 99 98 98 Oxygen Delivery Method Room Air Room Air 11/29/21 12:14 11/29/21 12:38 11/29/21 12:40 Temperature 97.3 F L 97.1 F L Temperature Source Temporal Temporal Pulse Rate 151 H 157 H 144 H Respiratory Rate 30 H 32 H 28 H Respiratory Effort Respiratory Pattern Blood Pressure 127/54 H 143/119 H 143/119 H Blood Pressure Mean 78 127 127 Pulse Ox 99 98 99 Oxygen Delivery Method Room Air Room Air 11/29/21 12:30 11/29/21 12:30 Temperature 97.0 F L Temperature Source Temporal Pulse Rate 134 H 143 H Respiratory Rate 25 H 24 H Respiratory Effort Respiratory Pattern Blood Pressure 123/78 H 123/78 H Blood Pressure Mean 93 93 Pulse Ox 98 98 Oxygen Delivery Method Room Air Room Air Weight Weight: 160 lb Body Mass Index (BMI) 27.4 Physical Exam Narrative General: Confused, disoriented. Short of breath HEENT: Atraumatic, PERRLA, EOMI, Normocephalic Oral: Oral mucosa dry. No Gingival or Mucosal Lesions/ Ulcerations Neck: Supple, No JVD, Negative Carotid Bruits Lungs: Air entry diminished in bilateral lung bases. No crepitation/rhonchi, tachypneic but not hypoxic Cardiovascular: A. fib with RVR, Normal S1, Normal S2, No murmurs Abdomen: Bowel Sounds sluggish, Soft, Non Tender, Non-Distended : Had spontaneous voiding urine in ED. No renal angle tenderness. No suprapubic tenderness. Extremities: No edema, Capillary Refill Less than 3 Seconds Skin: Skin very dry, loss of turgor Musculoskeletal: Moderate muscle atrophy of extremities. No Tenderness to Palpation of Joints or Extremities Neurological: Cranial nerves II-XII grossly intact, DTR 2+/4. Lethargy Psych/Mental Status: Flat affect Results Lab / Micro Data Result Diagrams: 11/29/21 10:30 11/29/21 10:30 Labs: Laboratory Results - last 24 hr 11/29/21 10:30: WBC 23.1 H, RBC 4.81, Hgb 13.5, Hct 45.7, MCV 95.0, MCH 28.1, MCHC 29.5 L, RDW Std Deviation 50.2 H, RDW Coeff of Mateus 14.5, Plt Count 458 H, MPV 12.1 H, Immature Gran % (Auto) 4.800 H, Neut % (Auto) 76.9 H, Lymph % (Auto) 13.6 L, [place] % (Auto) 3.1, Eos % (Auto) 0.3, Baso % (Auto) 1.3 H, Absolute Neuts (auto) 17.8 H, Absolute Lymphs (auto) 3.15, Nucleated RBC % 0 11/29/21 10:30: Sodium 127 L, Potassium 4.7, Chloride 94 L, Carbon Dioxide 3.0 L*, Anion Gap 30 H, BUN 28 H, Creatinine 1.34 H, Estim Creat Clear Calc 34.22, Est GFR (MDRD) Af Amer 50 L, Est GFR (MDRD) Non-Af 42 L, BUN/Creatinine Ratio 20.9 H, Glucose 771 H*, Calcium 9.4, Total Bilirubin 0.40, AST 18, ALT 25, Alkaline Phosphatase 185 H, Troponin I High Sens 40, Total Protein 9.0 H, Albumin 3.8, Globulin 5.2 H, Albumin/Globulin Ratio 0.7 L, TSH 26.60 H 11/29/21 10:30: Magnesium 2.4 11/29/21 10:54: POC Glucose > 500 H* 11/29/21 11:14: PT 15.6 H, INR 1.3, APTT 34.1 11/29/21 11:14: Acetone Level LARGE H 11/29/21 11:14: Lactic Acid 4.5 H* 11/29/21 11:28: Urine Color Yellow, Urine Clarity Sl. Cloudy, Urine pH 5.0, Ur Specific [place] 1.025, Urine Protein 30 H, Urine Glucose (UA) 1000 H, Urine Ketones 150 A*, Urine Occult Blood 25 H, Urine Nitrite Negative, Urine Bilirubin Negative, Urine Urobilinogen Normal, Ur Leukocyte Esterase Negative, Urine RBC 0-5 SEEN, Urine WBC 0 SEEN, Ur Squamous Epith Cells 0 SEEN, Urine Bacteria 0 SEEN, Urine Mucus 0 SEEN ABG Data ABG results: ABG 11/29/21 11:50 Specimen Type ART Sample Site R Radial pH 6.98 L* Bicarbonate Actual TNP Total CO2 TNP Base Excess TNP O2 Saturation TNP ABG pCO2 < 5.0 L* ABG pO2 157 H Driss Test Positive Crit Call To/Read Back Yes Radiology Impression Chest X-Ray 11/29/21 10:08 IMPRESSION: Mild increased markings at the left lung base suggestive of bibasilar atelectasis and/or infiltrate. Electronically Signed: Pablo Sarmiento MD at 11:10 EDT , Assessment & Plan Assessment/Plan (1) DKA (diabetic ketoacidosis): (2) New onset a-fib: PLAN: Plan This is a 71-year-old female with history of type 1 diabetes mellitus admitted with generalized weakness, looking sick, A. fib with RVR, abnormal labs consistent with DKA 1. DKA with high anion gap metabolic acidosis: Patient is being admitted in ICU. IV fluid normal saline as per DKA protocol. Patient on third liter of IV fluid normal saline bolus. Continue insulin drip titrate as per DKA insulin nomogram. Monitor intake and output. BMP every 4 hourly. [employer] Operator consulted. ABG shows pH 6.98, PCO2 less than 5, bicarb 3, anion gap 30. Serum magnesium 2.4. 2. A. fib with RVR probably precipitated by DKA: Patient on Cardizem drip. Metoprolol 5 mg IV every 4 hourly as needed for heart rate more than 130/min. I think it is transient A. fib due to metabolic derangement 3. Hypothyroidism: Patient had thyroidectomy for benign goiter. TSH 26.6, free T4 0.37. Continue thyroxine. 4. Left knee arthritis status post recent arthrocentesis: Try to get arthrocentesis report of off left knee done on 10/11/21 VTE prophylaxis: Lovenox 40 mg of daily. Living will/advanced directive/end of life care: Patient does not have living will or advanced directive. After discussion of benefits/risks procedures involved with full code, DNR CC arrest and DNR CC, the patient opted for full code. She wants all possible resuscitations. Patient does want artificial life support including intubation, tube feed, ventilator and/chest compression, central venous catheter, vasopressor and DC shock if needed Total time spent in [id number] encounter in discussion of advanced directive 16 minutes. Charges/Coding Visit Charges Inpatient E&M: 13205 Init [facility] L3 Procedures Hospitalists Procedures: 57014 Advncd Care Plan 30 Min Multi Select Codes Visit Charges [facility] Procedures: 61966 Advncd Care Plan 30 Min
[2021-11-29 13:42] LABS: T4 Free Direct 0.37 ng/dL (0.76-1.46)
[2021-11-29 14:04] LABS: Osmolality, Serum 340 mOsm/KG (280-301)
[2021-11-29 14:06] LABS: Bedside Glucose 437 mg/dL (74-106)
[2021-11-29 14:10] LABS: Anion Gap 21 (5-15); BUN 25 mg/dL (7-18); BUN/Creat Ratio 24.5 RATIO (10-20); Calcium,Total 7.9 mg/dL (8.5-10.1); Chloride 109 mmol/L (98-107); Creatinine, Serum 1.02 mg/dL (0.55-1.02); EST Glomerular Filtration Rate 57 mL/min (>60); Est Glom Filt Rate - Afr Amer 69 mL/min (>60); Estimated Creatinine Clearance 44.95 ml/min; Glucose 567 mg/dL (74-106); Phosphorus 3.5 mg/dL (2.5-4.9); Potassium 4.6 mmol/L (3.5-5.1); Sodium Level 134 mmol/L (136-145)
[2021-11-29] MEDS: Enoxaparin 40 MG/0.4 ML Syringe SC (14:23)
[2021-11-29 15:16] LABS: Bedside Glucose 393 mg/dL (74-106)
[2021-11-29 15:21] LABS: Reflex Lactate? Y
[2021-11-29 15:30] LABS: M R Staph aureus DNA By PCR Negative (Negative); Probe Check PASS; Specimen Processing Control PASS
[2021-11-29 16:06] LABS: Bedside Glucose 334 mg/dL (74-106)
[2021-11-29 17:25] LABS: Bedside Glucose 219 mg/dL (74-106)
[2021-11-29] MEDS: Dext 5%-0.45% NS 1,000 ML 150 ML IV ×2 (17:26→22:30)
[2021-11-29 18:10] LABS: Bedside Glucose 236 mg/dL (74-106)
[2021-11-29 18:16] LABS: Anion Gap 12 (5-15); BUN 20 mg/dL (7-18); Calcium,Total 7.9 mg/dL (8.5-10.1); Chloride 113 mmol/L (98-107); Creatinine, Serum 0.83 mg/dL (0.55-1.02); EST Glomerular Filtration Rate 72 mL/min (>60); Est Glom Filt Rate - Afr Amer 87 mL/min (>60); Estimated Creatinine Clearance 55.24 ml/min; Glucose 247 mg/dL (74-106); Potassium 4.2 mmol/L (3.5-5.1); Sodium Level 137 mmol/L (136-145)
[2021-11-29 18:56] LABS: Bedside Glucose 226 mg/dL (74-106)
[2021-11-29 21:16] LABS: Bedside Glucose 219 mg/dL (74-106)
[2021-11-29 21:16] LABS: Bedside Glucose 207 mg/dL (74-106)
[2021-11-29 21:34] LABS: Anion Gap 10 (5-15); BUN 19 mg/dL (7-18); Calcium,Total 7.9 mg/dL (8.5-10.1); Chloride 114 mmol/L (98-107); Creatinine, Serum 0.79 mg/dL (0.55-1.02); EST Glomerular Filtration Rate 76 mL/min (>60); Est Glom Filt Rate - Afr Amer 92 mL/min (>60); Estimated Creatinine Clearance 45.85 ml/min; Glucose 211 mg/dL (74-106); Potassium 3.4 mmol/L (3.5-5.1); Sodium Level 139 mmol/L (136-145)
[2021-11-29] MEDS: Potassium Chloride Oral Tablet 20 MEQ 40 MEQ PO (22:28)
[2021-11-29 22:46] LABS: Bedside Glucose 182 mg/dL (74-106)
[2021-11-30] VITALS (14 sets, daily range): BP systolic 116–164; BP diastolic 61–128; PULSE 61–83; RESP 15–19; TEMP 36.1–36.7; O2SAT 95–100
[2021-11-30 00:51] LABS: Bedside Glucose 153 mg/dL (74-106)
[2021-11-30 01:43] LABS: Anion Gap 8 (5-15); BUN 18 mg/dL (7-18); BUN/Creat Ratio 22.8 RATIO (10-20); Calcium,Total 7.9 mg/dL (8.5-10.1); Chloride 114 mmol/L (98-107); Creatinine, Serum 0.79 mg/dL (0.55-1.02); EST Glomerular Filtration Rate 77 mL/min (>60); Est Glom Filt Rate - Afr Amer 93 mL/min (>60); Estimated Creatinine Clearance 45.85 ml/min; Glucose 161 mg/dL (74-106); Potassium 3.3 mmol/L (3.5-5.1); Sodium Level 139 mmol/L (136-145)
[2021-11-30 02:40] LABS: Bedside Glucose 131 mg/dL (74-106)
[2021-11-30] MEDS: Potassium Chloride Oral Tablet 20 MEQ 40 MEQ PO ×2 (03:25→09:08)
[2021-11-30 03:36] LABS: Bedside Glucose 134 mg/dL (74-106)
[2021-11-30 05:12] LABS: Absolute Lymphocyte Count 1.63 X10^3/uL (0.83-4.51); Absolute Neutrophil Count 12.6 X10^3/uL (2.0-7.7); Basophil# 0.07 X10^3/uL; Basophil% 0.5 % (0-1); Eosinophil# 0.06 X10^3/uL; Eosinophils% 0.4 % (0-5); Hematocrit 30.4 % (37-47); Hemoglobin 10.2 g/dL (12.0-15.0); Lymphocyte # 1.63 X10^3/ul (0.83-4.51); Lymphocyte % 10.7 % (19-41); Mean Corp Hgb Conc 33.6 g/dL (32-36); Mean Corpuscular Hgb 28.3 pg (27.0-32.0); Mean Corpuscular Volume 84.4 fL (81-99); Mean Platelet Vol. 11.1 fl (6.2-12.0); Monocyte# 0.71 X10^3/uL; Monocyte% 4.7 % (0-10); NRBC Flagged by Analyzer 0 % (0-5); Neutrophil % 82.9 % (47-70); Platelet Count 297 K/mm3 (150-450); RBC Distribution Width CV 14.5 % (11.6-14.6); RBC Distribution Width SD 44.6 fl (35.1-43.9); White Blood Count 15.2 K/mm3 (4.4-11.0)
[2021-11-30 05:29] LABS: Anion Gap 7 (5-15); BUN 15 mg/dL (7-18); BUN/Creat Ratio 21.4 RATIO (10-20); Calcium,Total 7.9 mg/dL (8.5-10.1); Chloride 114 mmol/L (98-107); EST Glomerular Filtration Rate 88 mL/min (>60); Est Glom Filt Rate - Afr Amer 106 mL/min (>60); Estimated Creatinine Clearance 45.85 ml/min; Glucose 122 mg/dL (74-106); Sodium Level 139 mmol/L (136-145)
--- NOTE | 2021-11-30 05:47 | PN.CC_ITS ---
Assessment & Plan Assessment/Plan (1) DKA (diabetic ketoacidosis): (2) New onset a-fib: PLAN: Plan RECOMMENDATIONS: 1. Transition to basal and sliding scale insulin coverage. 2. Dietary advancement as tolerated. 3. Confirm home dose of levothyroxine and restart today. 4. Aggressive electrolyte repletion. 5. Continue antimicrobials for 24 hours. If cultures are negative tomorrow, will discontinue antibiotics. IMPRESSIONS: 1. Diabetic ketoacidosis The patient presented to the hospital with DKA. Although no definitive i nfectious etiology has yet to be identified, the patient was placed empirically on antimicrobials and blood cultures were obtained, should the patient's recent joint effusion represent some form of infection. The patient appears vastly improved clinically this morning. Any evidence of organ dysfunction could certainly be secondary to intravascular volume depletion in the setting of diabetic ketoacidosis with further vital sign perturbations related to suboptimally treated hypothyroidism. Agree with transitioning to basal and sliding scale insulin coverage, with dietary advancement as tolerated. We will continue antimicrobials for 24 hours, with plans to discontinue tomorrow if cultures are negative. 2. New onset atrial fibrillation with RVR Resolved. The patient did develop atrial fibrillation with RVR while in the emergency department. This could be related to her hypothyroidism, as she does have a significantly elevated TSH. With medical management of her DKA and aggressive electrolyte repletion, the patient's atrial fibrillation resolved. 3. Acute kidney injury/anion gap metabolic acidosis Resolved. Secondary to prerenal azotemia in the setting of #1. Improvement was noted with medical management of #1. 4. History of hypothyroidism Complicates care, management, recovery and prognosis. Recommend confirming home levothyroxine dose and restarting today. This note was generated with [employer] dictation software. It may contain incorrect words, spelling, and punctuation that were not noted in checking the note before signing. Subjective Subjective The patient was seen and examined at the bedside this morning. Events from the last 24 hours have been reviewed. The patient is currently afebrile, hemodynamically stable and maintaining appropriate oxygen saturations on room air. The patient feels much better this morning and is more conversant, without any specific complaints. She did convert from atrial fibrillation to normal sinus rhythm yesterday afternoon. Her anion gap has been closed on multiple chemistry profiles. Creatinine has normalized. Potassium is low at 3.0. Objective Data Objective Data The patient's most recent lab work, culture data and imaging studies have all been personally reviewed. Blood cultures are pending. Vital Signs: Vital Signs Temp Pulse Resp BP Pulse Ox 98 F 62 15 126/62 H 95 11/30/21 03:00 11/30/21 05:00 11/30/21 05:00 11/30/21 05:00 11/30/21 05:00 Oxygen Delivery Method Room Air Weight: 138 lb 8 oz Body Mass Index (BMI) 23.5 Intake & Output: Intake and Output for Last 24 Hours 11/28/21 11/29/21 11/30/21 23:59 23:59 23:59 Intake Total 4119.78 / 4122.48 66.20 / 66.20 Balance 4119.78 / 4122.48 66.20 / 66.20 Lab / Micro Data Attestation: I reviewed the patient's lab results. Result Diagrams: 11/30/21 05:05 11/30/21 05:05 Labs: Laboratory Results - last 24 hr 11/29/21 10:30: WBC 23.1 H, RBC 4.81, Hgb 13.5, Hct 45.7, MCV 95.0, MCH 28.1, MCHC 29.5 L, RDW Std Deviation 50.2 H, RDW Coeff of Mateus 14.5, Plt Count 458 H, MPV 12.1 H, Immature Gran % (Auto) 4.800 H, Neut % (Auto) 76.9 H, Lymph % (Auto) 13.6 L, [place] % (Auto) 3.1, Eos % (Auto) 0.3, Baso % (Auto) 1.3 H, Absolute Neuts (auto) 17.8 H, Absolute Lymphs (auto) 3.15, Nucleated RBC % 0 11/29/21 10:30: Sodium 127 L, Potassium 4.7, Chloride 94 L, Carbon Dioxide 3.0 L*, Anion Gap 30 H, BUN 28 H, Creatinine 1.34 H, Estim Creat Clear Calc 34.22, Est GFR (MDRD) Af Amer 50 L, Est GFR (MDRD) Non-Af 42 L, BUN/Creatinine Ratio 20.9 H, Glucose 771 H*, Calcium 9.4, Total Bilirubin 0.40, AST 18, ALT 25, Alkaline Phosphatase 185 H, Troponin I High Sens 40, Total Protein 9.0 H, Albumin 3.8, Globulin 5.2 H, Albumin/Globulin Ratio 0.7 L, TSH 26.60 H 11/29/21 10:30: Magnesium 2.4 11/29/21 10:30: Free T4 0.37 L 11/29/21 10:54: POC Glucose > 500 H* 11/29/21 11:14: PT 15.6 H, INR 1.3, APTT 34.1 11/29/21 11:14: Acetone Level LARGE H 11/29/21 11:14: Lactic Acid 4.5 H* 11/29/21 11:14: Serum Osmolality 340 H 11/29/21 11:28: Urine Color Yellow, Urine Clarity Sl. Cloudy, Urine pH 5.0, Ur Specific [place] 1.025, Urine Protein 30 H, Urine Glucose (UA) 1000 H, Urine Ketones 150 A*, Urine Occult Blood 25 H, Urine Nitrite Negative, Urine Bilirubin Negative, Urine Urobilinogen Normal, Ur Leukocyte Esterase Negative, Urine RBC 0-5 SEEN, Urine WBC 0 SEEN, Ur Squamous Epith Cells 0 SEEN, Urine Bacteria 0 SEEN, Urine Mucus 0 SEEN 11/29/21 13:45: Magnesium 2.0 11/29/21 13:45: Sodium 134 L, Potassium 4.6, Chloride 109 H, Carbon Dioxide 4.0 L*, Anion Gap 21 H, BUN 25 H, Creatinine 1.02, Estim Creat Clear Calc 44.95, Est GFR (MDRD) Af Amer 69, Est GFR (MDRD) Non-Af 57 L, BUN/Creatinine Ratio 24.5 H, Glucose 567 H*, Calcium 7.9 L, Phosphorus 3.5 11/29/21 13:50: MRSA (PCR) Negative 11/29/21 13:59: POC Glucose 437 H 11/29/21 14:58: POC Glucose 393 H 11/29/21 15:30: Lactic Acid 2.0 11/29/21 15:58: POC Glucose 334 H 11/29/21 17:20: POC Glucose 219 H 11/29/21 17:40: Sodium 137, Potassium 4.2, Chloride 113 H, Carbon Dioxide 12.0 L , Anion Gap 12, BUN 20 H, Creatinine 0.83, Estim Creat Clear Calc 55.24, Est GFR (MDRD) Af Amer 87, Est GFR (MDRD) Non-Af 72, BUN/Creatinine Ratio 24.0 H, Glucose 247 H, Calcium 7.9 L 11/29/21 18:05: POC Glucose 236 H 11/29/21 18:50: POC Glucose 226 H 11/29/21 19:49: POC Glucose 219 H 11/29/21 21:11: Sodium 139, Potassium 3.4 L, Chloride 114 H, Carbon Dioxide 15.0 L, Anion Gap 10, BUN 19 H, Creatinine 0.79, Estim Creat Clear Calc 45.85, Est GFR (MDRD) Af Amer 92, Est GFR (MDRD) Non-Af 76, BUN/Creatinine Ratio 24.0 H, Glucose 211 H, Calcium 7.9 L 11/29/21 21:11: POC Glucose 207 H 11/29/21 22:39: POC Glucose 182 H 11/30/21 00:44: POC Glucose 153 H 11/30/21 01:12: Sodium 139, Potassium 3.3 L, Chloride 114 H, Carbon Dioxide 17.0 L, Anion Gap 8, BUN 18, Creatinine 0.79, Estim Creat Clear Calc 45.85, Est GFR (MDRD) Af Amer 93, Est GFR (MDRD) Non-Af 77, BUN/Creatinine Ratio 22.8 H, Gluco se 161 H, Calcium 7.9 L 11/30/21 02:36: POC Glucose 131 H 11/30/21 03:29: POC Glucose 134 H 11/30/21 05:05: Sodium 139, Potassium 3.0 L, Chloride 114 H, Carbon Dioxide 18.0 L, Anion Gap 7, BUN 15, Creatinine 0.70, Estim Creat Clear Calc 45.85, Est GFR (MDRD) Af Amer 106, Est GFR (MDRD) Non-Af 88, BUN/Creatinine Ratio 21.4 H, Glucose 122 H, Calcium 7.9 L 11/30/21 05:05: WBC 15.2 H, RBC 3.60 L, Hgb 10.2 L, Hct 30.4 L, MCV 84.4 D, MCH 28.3, MCHC 33.6 D, RDW Std Deviation 44.6 H, RDW Coeff of Mateus 14.5, Plt Count 297, MPV 11.1, Immature Gran % (Auto) 0.800, Neut % (Auto) 82.9 H, Lymph % (Au to) 10.7 L, [place] % (Auto) 4.7, Eos % (Auto) 0.4, Baso % (Auto) 0.5, Absolute Neuts (auto) 12.6 H, Absolute Lymphs (auto) 1.63, Nucleated RBC % 0 ABG Data ABG results: ABG 11/29/21 11:50 Specimen Type ART Sample Site R Radial pH 6.98 L* Bicarbonate Actual TNP Total CO2 TNP Base Excess TNP O2 Saturation TNP ABG pCO2 < 5.0 L* ABG pO2 157 H Driss Test Positive Crit Call To/Read Back Yes Radiography Diagnostic Testing: Radiology Impression Chest X-Ray 11/29/21 10:08 IMPRESSION: Mild increased markings at the left lung base suggestive of bibasilar atelectasis and/or infiltrate. Electronically Signed: Pablo Sarmiento MD at 11:10 EDT , Physical Exam Const alert and no apparent distress General Appearance: cooperative HEENT normocephalic, head/scalp atraumatic and moist oral mucous membranes Eyes PERRL and EOMs intact bilaterally Neck supple General: trachea midline Chest inspection of chest normal Resp normal respiratory effort and no use of accessory muscles Auscultation: Negative for rales, rhonchi or wheezes Cardio regular rate, regular rhythm, S1 normal heart sound and S2 normal heart sound GI normal to inspection, nondistended, normoactive bowel sounds Extremity no clubbing, cyanosis or edema Skin no rashes or lesions noted Neuro CN's II-XII intact bilaterally, moves all extremities and no focal motor deficits Psych cooperative and affect normal Charges/Coding Visit Charges Inpatient E&M: 62601 Subs Hosp L3
[2021-11-30] MEDS: Insulin NPH Human 100 UNITS/ML PEN 19 UNITS SC (05:50)
[2021-11-30] MEDS: Potassium Chloride Oral Tablet 20 MEQ 60 MEQ PO (05:59)
[2021-11-30 07:31] LABS: Hemoglobin A1c 12.5 % (3.8-5.6)
--- NOTE | 2021-11-30 08:52 | PN.HOSP_ITS ---
Subjective Subjective Follow-up for DKA. Patient not nauseated. No abdominal pain. Objective Data Objective Data Vital Signs: Vital Signs Temp Pulse Resp BP Pulse Ox 96.9 F L 71 18 147/71 H 98 11/30/21 08:00 11/30/21 08:00 11/30/21 08:00 11/30/21 08:00 11/30/21 08:00 Oxygen Delivery Method Room Air Weight: 138 lb 8 oz Body Mass Index (BMI) 23.5 Intake & Output: Intake and Output for Last 24 Hours 11/28/21 11/29/21 11/30/21 23:59 23:59 23:59 Intake Total 4119.78 / 4122.48 1115.81 / 1115.81 Balance 4119.78 / 4122.48 1115.81 / 1115.81 Lab / Micro Data Result Diagrams: 11/30/21 05:05 11/30/21 05:05 Labs: Laboratory Results - last 24 hr 11/29/21 10:30: WBC 23.1 H, RBC 4.81, Hgb 13.5, Hct 45.7, MCV 95.0, MCH 28.1, MCHC 29.5 L, RDW Std Deviation 50.2 H, RDW Coeff of Mateus 14.5, Plt Count 458 H, MPV 12.1 H, Immature Gran % (Auto) 4.800 H, Neut % (Auto) 76.9 H, Lymph % (Auto) 13.6 L, [place] % (Auto) 3.1, Eos % (Auto) 0.3, Baso % (Auto) 1.3 H, Absolute Neuts (auto) 17.8 H, Absolute Lymphs (auto) 3.15, Nucleated RBC % 0 11/29/21 10:30: Sodium 127 L, Potassium 4.7, Chloride 94 L, Carbon Dioxide 3.0 L*, Anion Gap 30 H, BUN 28 H, Creatinine 1.34 H, Estim Creat Clear Calc 34.22, Est GFR (MDRD) Af Amer 50 L, Est GFR (MDRD) Non-Af 42 L, BUN/Creatinine Ratio 20.9 H, Glucose 771 H*, Calcium 9.4, Total Bilirubin 0.40, AST 18, ALT 25, Alkaline Phosphatase 185 H, Troponin I High Sens 40, Total Protein 9.0 H, Album in 3.8, Globulin 5.2 H, Albumin/Globulin Ratio 0.7 L, TSH 26.60 H 11/29/21 10:30: Magnesium 2.4 11/29/21 10:30: Free T4 0.37 L 11/29/21 10:54: POC Glucose > 500 H* 11/29/21 11:14: PT 15.6 H, INR 1.3, APTT 34.1 11/29/21 11:14: Acetone Level LARGE H 11/29/21 11:14: Lactic Acid 4.5 H* 11/29/21 11:14: Serum Osmolality 340 H 11/29/21 11:28: Urine Color Yellow, Urine Clarity Sl. Cloudy, Urine pH 5.0, Ur Specific [place] 1.025, Urine Protein 30 H, Urine Glucose (UA) 1000 H, Urine Ketones 150 A*, Urine Occult Blood 25 H, Urine Nitrite Negative, Urine Bilirubin Negative, Urine Urobilinogen Normal, Ur Leukocyte Esterase Negative, Urine RBC 0-5 SEEN, Urine WBC 0 SEEN, Ur Squamous Epith Cells 0 SEEN, Urine Bacteria 0 SE EN, Urine Mucus 0 SEEN 11/29/21 13:45: Magnesium 2.0 11/29/21 13:45: Sodium 134 L, Potassium 4.6, Chloride 109 H, Carbon Dioxide 4.0 L*, Anion Gap 21 H, BUN 25 H, Creatinine 1.02, Estim Creat Clear Calc 44.95, Est GFR (MDRD) Af Amer 69, Est GFR (MDRD) Non-Af 57 L, BUN/Creatinine Ratio 24.5 H, Glucose 567 H*, Calcium 7.9 L, Phosphorus 3.5 11/29/21 13:50: MRSA (PCR) Negative 11/29/21 13:59: POC Glucose 437 H 11/29/21 14:58: POC Glucose 393 H 11/29/21 15:30: Lactic Acid 2.0 11/29/21 15:58: POC Glucose 334 H 11/29/21 17:20: POC Glucose 219 H 11/29/21 17:40: Sodium 137, Potassium 4.2, Chloride 113 H, Carbon Dioxide 12.0 L , Anion Gap 12, BUN 20 H, Creatinine 0.83, Estim Creat Clear Calc 55.24, Est GFR (MDRD) Af Amer 87, Est GFR (MDRD) Non-Af 72, BUN/Creatinine Ratio 24.0 H, Glucose 247 H, Calcium 7.9 L 11/29/21 18:05: POC Glucose 236 H 11/29/21 18:50: POC Glucose 226 H 11/29/21 19:49: POC Glucose 219 H 11/29/21 21:11: Sodium 139, Potassium 3.4 L, Chloride 114 H, Carbon Dioxide 15.0 L, Anion Gap 10, BUN 19 H, Creatinine 0.79, Estim Creat Clear Calc 45.85, Est GFR (MDRD) Af Amer 92, Est GFR (MDRD) Non-Af 76, BUN/Creatinine Ratio 24.0 H, Glucose 211 H, Calcium 7.9 L 11/29/21 21:11: POC Glucose 207 H 11/29/21 22:39: POC Glucose 182 H 11/30/21 00:44: POC Glucose 153 H 11/30/21 01:12: Sodium 139, Potassium 3.3 L, Chloride 114 H, Carbon Dioxide 17.0 L, Anion Gap 8, BUN 18, Creatinine 0.79, Estim Creat Clear Calc 45.85, Est GFR (MDRD) Af Amer 93, Est GFR (MDRD) Non-Af 77, BUN/Creatinine Ratio 22.8 H, Glucose 161 H, Calcium 7.9 L 11/30/21 02:36: POC Glucose 131 H 11/30/21 03:29: POC Glucose 134 H 11/30/21 05:05: Sodium 139, Potassium 3.0 L, Chloride 114 H, Carbon Dioxide 18.0 L, Anion Gap 7, BUN 15, Creatinine 0.70, Estim Creat Clear Calc 45.85, Est GFR (MDRD) Af Amer 106, Est GFR (MDRD) Non-Af 88, BUN/Creatinine Ratio 21.4 H, Glucose 122 H, Calcium 7.9 L 11/30/21 05:05: WBC 15.2 H, RBC 3.60 L, Hgb 10.2 L, Hct 30.4 L, MCV 84.4 D, MCH 28.3, MCHC 33.6 D, RDW Std Deviation 44.6 H, RDW Coeff of Mateus 14.5, Plt Count 297, MPV 11.1, Immature Gran % (Auto) 0.800, Neut % (Auto) 82.9 H, Lymph % (Auto) 10.7 L, [place] % (Auto) 4.7, Eos % (Auto) 0.4, Baso % (Auto) 0.5, Absolute Neuts (auto) 12.6 H, Absolute Lymphs (auto) 1.63, Nucleated RBC % 0 11/30/21 05:05: Hemoglobin A1c 12.5 H ABG Data ABG results: ABG 11/29/21 11:50 Specimen Type ART Sample Site R Radial pH 6.98 L* Bicarbonate Actual TNP Total CO2 TNP Base Excess TNP O2 Saturation TNP ABG pCO2 < 5.0 L* ABG pO2 157 H Driss Test Positive Crit Call To/Read Back Yes Radiography Diagnostic Testing: Radiology Impression Chest X-Ray 11/29/21 10:08 IMPRESSION: Mild increased markings at the left lung base suggestive of bibasilar atelectasis and/or infiltrate. Electronically Signed: Pablo Sarmiento MD at 11:10 EDT , Physical Exam Narrative Patient converted to sinus rhythm yesterday afternoon. Patient is well- hydrated. Patient had bowel movement today. General: Awake, alert, oriented x3. HEENT: Atraumatic, PERRLA, EOMI, Normocephalic Oral: Oral mucosa moist. No Gingival or Mucosal Lesions/ Ulcerations Neck: Supple, No JVD, Negative Carotid Bruits Lungs: Air entry diminished in bilateral lung bases. No crepitation/rhonchi, tachypneic but not hypoxic Cardiovascular: Sinus rhythm, Normal S1, Normal S2, No murmurs Abdomen: Bowel Sounds present, Soft, Non Tender, Non-Distended : spontaneous voiding. No renal angle tenderness. No suprapubic tenderness. Extremities: No edema, Capillary Refill Less than 3 Seconds Skin:No rash. Musculoskeletal: Moderate muscle atrophy of extremities. No Tenderness to Palpation of Joints or Extremities Neurological: Cranial nerves II-XII grossly intact, DTR 2+/4. Lethargy Psych/Mental Status: Flat affect Assessment & Plan Assessment/Plan (1) DKA (diabetic ketoacidosis): (2) New onset a-fib: PLAN: Plan This is a 71-year-old female with history of type 1 diabetes mellitus admitted with generalized weakness, looking sick, A. fib with RVR, abnormal labs consistent with DKA 1. DKA with high anion gap metabolic acidosis: Patient is being admitted in ICU. IV fluid normal saline as per DKA protocol. Patient on third liter of IV fluid normal saline bolus. Continue insulin drip titrate as per DKA insulin nomogram. Monitor intake and output. BMP every 4 hourly. Materials And Corrosion Engineer consulted. ABG shows pH 6.98, PCO2 less than 5, bicarb 3, anion gap 30. Serum magnesium 2.4. 11/30: Anion gap is closed x2. Patient is on subcutaneous basal and bolus insulin with Humalog sliding scale coverage. Mild hypokalemia: Potassium getting replaced. Repeat serum magnesium and phosphorus ordered. Yesterday, it was normal. Continue empirically antibiotic until culture negative. 2. A. fib with RVR probably precipitated by DKA: Patient on Cardizem drip. Metoprolol 5 mg IV every 4 hourly as needed for heart rate more than 130/min. I think it is transient A. fib due to metabolic derangement 11/30: Transitional A. fib with RVR probably caused by metabolic derangement from DKA. Patient converted to sinus rhythm on 11/29 afternoon. 3. Hypothyroidism: Patient had thyroidectomy for benign goiter. TSH 26.6, free T4 0.37. Continue thyroxine. 11/30: Patient is on alternating dose of 137 mcg and 150 mcg levothyroxine daily. As thyroid profile shows hypothyroidism, continue levothyroxine 150 mcg daily. Repeat TSH tomorrow AM. 4. Left knee arthritis status post recent arthrocentesis: Try to get arthrocentesis report of off left knee done on 10/11/21 VTE prophylaxis: Lovenox 40 mg of daily. Living will/advanced directive/end of life care: Patient does not have living will or advanced directive. After discussion of benefits/risks procedures involved with full code, DNR CC arrest and DNR CC, the patient opted for full code. She wants all possible resuscitations. Patient does want artificial life support including intubation, tube feed, ventilator and/chest compression, central venous catheter, vasopressor and DC shock if needed Charges/Coding Visit Charges Inpatient E&M: 57341 [place] [id number]
[2021-11-30] MEDS: Enoxaparin 40 MG/0.4 ML Syringe SC (09:08)
[2021-11-30] MEDS: Insulin Lispro 100 UNIT/ML INSULN.PEN SC ×3 (09:08→17:44)
[2021-11-30 09:16] LABS: Bedside Glucose 152 mg/dL (74-106)
[2021-11-30] MEDS: Levothyroxine 150 MCG Tablet PO (10:03)
[2021-11-30] MEDS: Glucerna Shake 120 ML LIQUID PO ×2 (10:40→16:30)
[2021-11-30] MEDS: Insulin Lispro 100 UNIT/ML INSULN.PEN 12 UNIT SC ×2 (12:19→22:53)
[2021-11-30 12:30] LABS: Bedside Glucose 380 mg/dL (74-106)
[2021-11-30 12:45] LABS: Magnesium 1.6 mg/dL (1.6-2.6); Phosphorus 1.1 mg/dL (2.5-4.9)
--- NOTE | 2021-11-30 13:31 | EKG12_ITS ---
Test Reason : Blood Pressure : / mmHG Vent. Rate : 073 BPM Atrial Rate : 073 BPM P-R Int : 158 ms QRS Dur : 070 ms QT Int : 408 ms P-R-T Axes : 055 002 042 degrees QTc Int : 449 ms Normal sinus rhythm Normal ECG When compared with ECG of 29-NOV-2021 10:56, Significant changes have occurred Confirmed by JOSÉ ANTONIO CROSS, SAMEER ([id number]), proposal editor NATI HUGO ([id number]) on 12/04/2021 8:46:44 AM Referred By: JOSÉ ANTONIO Confirmed By:SAMEER CHOU MD
--- NOTE | 2021-11-30 13:37 | CASEMGMT ---
Script for WW faxed to [employer] and call to Haresh at [facility] notify, voices understanding. Script for OP therapy faxed to [employer] and original to pt. Pt voices no further questions/concerns/needs and aware to ask for RN CM if any further questions arise, voices understanding. SStaten RN CM
[2021-11-30] MEDS: Magnesium Chloride 64 MG Delay Rel.Tablet 128 MG PO ×2 (15:41→22:54)
--- NOTE | 2021-11-30 16:50 | CASEMGMT ---
Addendum entered by Cassius Berry 11/30/21 16:57: Assessment completed @ 4635. Original Note: RN CM PROJECT ADMINISTRATOR CM to room to meet with patient for initial transition planning/care coordination assessment. RN CM introduced self and role at [facility].? Pt voices understanding and consents to assessment at this time.? Pt sitting up in recliner chair in room in no distress at this time.? Pt is A/O at this time and answers all questions appropriately.?? Care providers, pharmacy, and demographics verified/updated at this time. PCP: Dr Bravo Specialists: None Preferred Pharmacy: [facility] Insurance: [facility], [facility] Prescription Benefit:?Yes Living Will/HPOA:? States does not have LW or HCPOA .? Interested in more information but states does not want to talk with SW at this time to complete paperwork.? Provided information on advanced directives and given Social Service rac card with number to call if chooses in the future to utilize [facility] social work for advanced directive completion. Educated patient that, if patient so chooses, can come back to [facility] and meet with a SW as an outpatient to complete health care advanced directives. Patient expresses understanding. LNOK: , Mir. 2 children Living Arrangements: Lives w/ in 2-story home w/no steps to enter. Bathroom on both floors. Bedroom is upstairs, but pt states she often sleeps in recliner chair on first-floor, d/t fall asleep there. Transportation:?Pt states drives self and states no transportation concerns at this time.? also drives DME: ?Has functioning glucometer w/supplies and has insulin and pen needles. Pt states does not have a walker and would like to get one. ?Pt was provided with list of? DME providers. Pt states she has no preference. ? ?Script to be obtained for walker and faxed to [employer] when available. Call placed to Wilmer @ [employer]. Walker to be delivered to pt's room today. HHC/SNF: No hx of SNF. Had HHC years many years ago. Pt denies need for HHC, stating she wishes to return home. She has went to [facility] in the past and states would like to do OP therapy again. Will obtain script and provide to pt. Pt agreeable to having script faxed to [facility] as well. Pt wishes to return home and states has no concerns with going home at time of discharge.? CM to follow for any further discharge planning/needs.? Pt voices no further concerns/needs at this time.? Advised pt to ask for CM if any further questions/concerns/needs arise.? Voices understanding. PLAN:??Home w/OP therapy. Walker to be delivered to pt's room today. Ponce CALIXTON RN CM
[2021-11-30 17:15] LABS: Bedside Glucose 165 mg/dL (74-106)
[2021-11-30] MEDS: Insulin Glargine-YFGN 100 UNIT/ML Pen 38 UNIT SC (22:53)
[2021-11-30 23:06] LABS: Bedside Glucose 332 mg/dL (74-106)
[2021-12-01] VITALS: BP 152/95; PULSE 85; RESP 14; TEMP 36.8; O2SAT 100
[2021-12-01 04:00] VITALS: PULSE 73
[2021-12-01] MEDS: Levothyroxine 150 MCG Tablet PO (05:24)
[2021-12-01 05:45] VITALS: BP 140/67; PULSE 78; RESP 14; TEMP 36.6; O2SAT 98
[2021-12-01 05:51] LABS: Bedside Glucose 40 mg/dL (74-106)
--- NOTE | 2021-12-01 05:57 | PCM.HOSP.N ---
Hospitalist Note Called secondary to hypoglycemia on fingerstick this morning. Blood sugar was 40. Patient was diaphoretic but otherwise asymptomatic. She was drinking orange juice and eating crackers and has ordered her breakfast. She received 38 units of glargine last evening along with 12 units sliding scale and ate a good dinner. She had nothing after dinner to eat however. Blood sugar prior to eating was 330. We will go ahead and decrease her glargine from 38 to 30 units for this evening.
--- NOTE | 2021-12-01 06:06 | PN.CC_ITS ---
Assessment & Plan Assessment/Plan (1) DKA (diabetic ketoacidosis): (2) New onset a-fib: PLAN: Plan RECOMMENDATIONS: 1. Continue basal and sliding scale insulin regimen. 2. Continue Synthroid. 3. Okay to discontinue antimicrobials. 4. Encourage incentive spirometer use and mobilize patient as tolerated. 5. Given the patient's lack of further ICU or pulmonary needs, will sign off. Please call with any additional questions. IMPRESSIONS: 1. Diabetic ketoacidosis The patient presented to the hospital with DKA. Although no definitive infectious etiology has yet to be identified, the patient was placed empirically on antimicrobials and blood cultures were obtained, should the patient's recent joint effusion represent some form of infection. However, subsequent work-up failed to demonstrate evidence of an infectious process. Therefore, sepsis has been ruled out. Any evidence of organ dysfunction was likely secondary to intravascular volume depletion in the setting of diabetic ketoacidosis with further vital sign perturbations related to suboptimally treated hypothyroidism. Plan to continue basal and sliding scale insulin regimen. Antimicrobials will be discontinued. 2. New onset atrial fibrillation with RVR Resolved. The patient did develop atrial fibrillation with RVR while in the emergency department. This could be related to her hypothyroidism, as she does have a significantly elevated TSH. With medical management of her DKA and aggressive electrolyte repletion, the patient's atrial fibrillation resolved. 3. Acute kidney injury/anion gap metabolic acidosis Resolved. Secondary to prerenal azotemia in the setting of #1. Improvement was noted with medical management of #1. 4. History of hypothyroidism Complicates care, management, recovery and prognosis. Recommend confirming home levothyroxine dose and restarting today. This note was generated with [employer] dictation software. It may contain incorrect words, spelling, and punctuation that were not noted in checking the note before signing. Subjective Subjective The patient was seen and examined at the bedside this morning. Events from the last 24 hours have been reviewed. The patient is currently afebrile, hemodynamically stable and maintaining appropriate oxygen saturations on room air. The patient was noted to be hypoglycemic this morning, for which her basal insulin regimen was augmented. Objective Data Objective Data The patient's most recent lab work, culture data and imaging studies have all been personally reviewed. Blood and urine cultures have not demonstrated any growth to date. Vital Signs: Vital Signs Temp Pulse Resp BP Pulse Ox 97.9 F 78 14 140/67 H 98 12/01/21 05:45 12/01/21 05:45 12/01/21 05:45 12/01/21 05:45 12/01/21 05:45 Oxygen Delivery Method Room Air Weight: 138 lb 8 oz Body Mass Index (BMI) 23.5 Intake & Output: Intake and Output for Last 24 Hours 11/29/21 11/30/21 12/01/21 23:59 23:59 23:59 Intake Total 4119.78 / 4122.48 1575.81 / 1895.81 1143.3333 / 1143.3333 Balance 4119.78 / 4122.48 1575.81 / 1895.81 1143.3333 / 1143.3333 Medical Nutrition Assessment Dietitian: Malnutrition Criteria Met Start: 11/30/21 09:46 Freq: Status: Active Protocol: Document 11/30/21 09:48 SLA (Rec: 11/30/21 09:48 SLA [id number]) Nutrition Malnutrition Evidence of Malnutrition Exists Yes Malnutrition (severe): Acute Illness/Injury Evidenced By Suboptimal Energy Intake ( Severe),Weight Loss (Severe), Physical Changes (Mild) Clinical Problem Acute Disease or Injury Related Malnutrition Etiology severe related to inadequate energy intake Signs/Symptoms as evidenced by 8.4% wt loss and eating <50% of est nutritional needs x <2 months - pt appears to have fat/ muscle loss in face and upper body. Status Active Problem Altered Nutrient-Related Laboratory Values Etiology related to diabetes Signs/Symptoms as evidenced by A1c = 12.5 Status Active Problem Recommendation Dietitian Recommendations/Changes Will change diet to 1600 min Consistent CHO Will order 4 oz glucerna shake 4x/day w/ medpass d/t s/s of malnutrition. Lab / Micro Data Attestation: I reviewed the patient's lab results. Result Diagrams: 12/01/21 06:10 11/30/21 05:05 Labs: Laboratory Results - last 24 hr 11/30/21 05:05: Hemoglobin A1c 12.5 H 11/30/21 05:05: Phosphorus 1.1 L*, Magnesium 1.6 11/30/21 08:57: POC Glucose 152 H 11/30/21 12:18: POC Glucose 380 H 06/17/22 17:12: POC Glucose 165 H 11/30/21 22:50: POC Glucose 332 H 12/01/21 05:31: POC Glucose 40 L* Physical Exam Const alert and no apparent distress General Appearance: cooperative HEENT normocephalic, head/scalp atraumatic and moist oral mucous membranes Eyes PERRL and EOMs intact bilaterally Neck supple General: trachea midline Chest inspection of chest normal Resp normal respiratory effort and no use of accessory muscles Auscultation: Negative for rales, rhonchi or wheezes Cardio regular rate, regular rhythm, S1 normal heart sound and S2 normal heart sound GI normal to inspection, nondistended, normoactive bowel sounds Extremity no clubbing, cyanosis or edema Skin no rashes or lesions noted Neuro CN's II-XII intact bilaterally, moves all extremities and no focal motor deficits Psych cooperative and affect normal Charges/Coding Visit Charges Inpatient E&M: 30257 Subs Hosp L2
[2021-12-01 06:19] LABS: Absolute Lymphocyte Count 1.71 X10^3/uL (0.83-4.51); Absolute Neutrophil Count 6.7 X10^3/uL (2.0-7.7); Basophil# 0.12 X10^3/uL; Basophil% 1.3 % (0-1); Eosinophil# 0.29 X10^3/uL; Eosinophils% 3.1 % (0-5); Hematocrit 33.7 % (37-47); Hemoglobin 11.3 g/dL (12.0-15.0); Lymphocyte # 1.71 X10^3/ul (0.83-4.51); Lymphocyte % 18.2 % (19-41); Mean Corp Hgb Conc 33.5 g/dL (32-36); Mean Corpuscular Hgb 28.2 pg (27.0-32.0); Mean Platelet Vol. 10.9 fl (6.2-12.0); Monocyte# 0.47 X10^3/uL; NRBC Flagged by Analyzer 0 % (0-5); Neutrophil # 6.73 X10^3/uL (2.7-7.7); Neutrophil % 71.9 % (47-70); Platelet Count 253 K/mm3 (150-450); RBC Distribution Width CV 15.5 % (11.6-14.6); Red Blood Count 4.01 M/mm3 (4.2-5.4); White Blood Count 9.4 K/mm3 (4.4-11.0)
[2021-12-01 07:01] LABS: Bedside Glucose 99 mg/dL (74-106)
[2021-12-01 07:14] LABS: Anion Gap 9 (5-15); BUN 9 mg/dL (7-18); BUN/Creat Ratio 17.4 RATIO (10-20); Calcium,Total 8.9 mg/dL (8.5-10.1); Chloride 111 mmol/L (98-107); Creatinine, Serum 0.52 mg/dL (0.55-1.02); EST Glomerular Filtration Rate 125 mL/min (>60); Est Glom Filt Rate - Afr Amer 151 mL/min (>60); Estimated Creatinine Clearance 45.85 ml/min; Glucose 57 mg/dL (74-106); Magnesium 1.8 mg/dL (1.6-2.6); Phosphorus 2.5 mg/dL (2.5-4.9); Potassium 3.1 mmol/L (3.5-5.1); Sodium Level 140 mmol/L (136-145)
[2021-12-01 07:41] VITALS: PULSE 89
[2021-12-01 09:51] VITALS: BP 158/83; PULSE 77; RESP 16; TEMP 36.6; O2SAT 100
[2021-12-01 09:57] VITALS: RESP 16
[2021-12-01] MEDS: Enoxaparin 40 MG/0.4 ML Syringe SC (10:06)
[2021-12-01] MEDS: Magnesium Chloride 64 MG Delay Rel.Tablet 128 MG PO (10:06)
--- NOTE | 2021-12-01 10:46 | DCINST_ITS ---
Discharge Instructions Diet Discharge Diet: 1800 Calorie Control Diet Activity Discharge Activity: May Not Drive Dressing / Incision Call your doctor if you observe: Fever of 101 or Higher, Coldness, Increased Pain, Numbness or Tingling, Change in Color, Inability to urinate, Inability to have a bowel movement, Using more than 1 pad per hour, Shortness of breath, Dizziness, Fainting spells, Swelling in the ankles, Chest pain, Prolonged hiccupping, Increased palpitations (irregular heartbeat), Calf discomfort and Uncontrolled pain Follow Up Care Test Results: Test results from this visit will be discussed in further detail at your follow- up appointment, if applicable. Discharge Plan Admission Admit Date/Time: 11/29/21 12:20 Primary Reason for Your Visit: DKA Attending Provider: Kenneth Chin Primary Care Provider: Eric Bravo Discharge Orders/Prescriptions Prescriptions: New insulin lispro [Humalog KwikPen Insulin] 100 unit/mL Insulin Pen See Protocol subcut TIDAC Qty: 0 0RF Protocol: 4. Sliding Scale Insulin High-Med Dosing Condition: 150-199 mg/dl = 2 units Condition: 200-259 mg/dl = 4 units Condition: 260-324 mg/dl = 6 units Condition: 325-374 mg/dl = 8 units Condition: 375-409 mg/dl = 10 units Condition: 410-449 mg/dl = 11 units Condition: Greater than 449 call physician Protocol Text: - Use for Total Daily Dose of Insulin 56-80 units - Patient who are insulin resistant or septic HIGH MEDIUM DOSING ALGORITHM R-Vaat-Epvsnyx 250 mg tablet 2 tab PO TID 2 Days Qty: 12 0RF magnesium oxide 400 mg magnesium tablet 400 mg PO BID Qty: 4 0RF Continued levothyroxine 137 MCG tablet 137 mcg PO QODAY levothyroxine 150 MCG tablet 150 mcg PO QODAY insulin aspart U-100 [Novolog Flexpen U-100 Insulin] 100 unit/mL (3 mL) insulin pen 12 unit subcut BID Qty: 15 0RF Label Comments: SLIDING SCALE 3-12 UNITS before meals Rx Instructions: Hold if glucose less than 130 mg/dl Changed Levemir FlexTouch U-100 Insuln 100 unit/mL (3 mL) insulin pen 20 unit subcut QHS Qty: 3 0RF Rx Instructions: Hold if glucose less than 130 mg/dl Referrals / Follow Up: Eric Bravo DO [Primary Care Provider] - Disposition Disposition (needs filled in before D/C Order can be placed): Home, Self Care
--- NOTE | 2021-12-01 12:11 | DS.PCM_ITS ---
Providers Date of Admission: 11/29/21 Date of Discharge: 12/01/21 Primary Care Physician: Dr. Eric Bravo, DO Reason For Visit: DKA Diagnosis Discharge Diagnosis (1) DKA (diabetic ketoacidosis): Status: Acute Code(s): E11.10 - Type 2 diabetes mellitus with ketoacidosis without coma (2) New onset a-fib: Status: Acute Code(s): I48.91 - Unspecified atrial fibrillation Medications at Discharge Home Medications insulin aspart U-100 100 unit/mL (3 mL) subcutaneous pen (Novolog Flexpen U-100 Insulin aspart) 12 unit (0.12 mL) subcut BID #15 mL 12/01/21 insulin detemir U-100 100 unit/mL (3 mL) subcutaneous pen (Levemir FlexTouch U- 100 Insulin) 20 unit (0.2 mL) subcut QHS #3 mL 12/01/21 insulin lispro 100 unit/mL subcutaneous pen (Humalog KwikPen (U-100) Insulin) See Protocol subcut TIDAC #0 mL 12/01/21 levothyroxine 150 mcg tablet 150 mcg PO DAILY #30 tabs 12/01/21 magnesium oxide 400 mg PO BID #4 tabs 12/01/21 sodium di- and monophosphate-potassium phos monobasic 250 mg tablet (W-Aaeh-Cbvflto) 2 tab PO TID 2 days #12 tabs 12/01/21 Hospital Course Summary of Care Provided Hospital Course: This is a 71-year-old female with history of type 1 diabetes mellitus admitted with generalized weakness, looking sick, A. fib with RVR, abnormal labs consistent with DKA 1.? DKA with high anion gap metabolic acidosis: Patient is being admitted in ICU.? IV fluid normal saline as per DKA protocol.? Patient on third liter of IV fluid normal saline bolus.? Continue insulin drip titrate as per DKA insulin nom ogram.? Monitor intake and output.? BMP every 4 hourly.? Firearms Specialist consulted.? ABG shows pH 6.98, PCO2 less than 5, bicarb 3, anion gap 30.? Serum magnesium 2.4. 11/30: Anion gap is closed x2.? Patient is on subcutaneous basal and bolus insulin with Humalog sliding scale coverage. Mild hypokalemia: Potassium getting replaced.? Repeat serum magnesium and phosphorus ordered.? Yesterday, it was normal. Continue empirically antibiotic until culture negative. 12/01: Cultures are negative therefore antibiotic discontinued. No infection found. No sepsis, sepsis ruled out. Patient had episode of hypoglycemia glucose 40 was treated. Lantus insulin dose decreased with holding parameter. Patient has prescription of Lantus insulin and Humalog insulin, glucometer and needles supplies. Reinforced Gluc[place]ck and insulin and diet. Follow-up PCP in 1 to 2 weeks. Patient had hypokalemia and hypomagnesemia and hypophosphatemia. Electrolytes replaced. 2.? A. fib with RVR probably precipitated by DKA: Patient on Cardizem drip.? Metoprolol 5 mg IV every 4 hourly as needed for heart rate more than 130/min.? I think it is transient A. fib due to metabolic derangement 11/30: Transient A. fib with RVR probably caused by metabolic derangement from DKA.? Patient converted to sinus rhythm on 11/29 afternoon. 12/01: Patient remains in sinus rhythm. Transient A. fib resolved. 3.? Hypothyroidism: Patient had thyroidectomy for benign goiter.? TSH 26.6, free T4 0.37.? Continue thyroxine. 11/30: Patient is on alternating dose of 137 mcg and 150 mcg levothyroxine daily.? As thyroid profile shows hypothyroidism, continue levothyroxine 150 mcg daily.? Repeat TSH tomorrow AM. 12/01: Continue levothyroxine 150 mcg daily. Levothyroxine 137 mcg discontinued. 4.? Left knee arthritis status post recent arthrocentesis: Try to get arthrocentesis report of off left knee done on 10/11/21 VTE prophylaxis: Lovenox 40 mg daily. Discharge medication reconciliation done. Discharge follow-up instructions co mpleted. Discharge process discussed with the patient and all questions were answered to patient's satisfaction. Prescription for magnesium oxide and Neutra-Phos given. Total time spent, exact 35 minutes on discharge meds reconciliation, examination, coordination of care with nurses and ancillary staff, review of imaging and blood test and discussion with the patient on follow-up instructions. Living will/advanced directive/end of life care: Patient does not have living will or advanced directive.? After discussion of benefits/risks procedures involved with? full code, DNR CC arrest and DNR CC, the patient opted for full code.? She wants all possible resuscitations. Patient? does want artificial life support including intubation, tube feed, ventilator and/chest compression, central venous catheter, vasopressor and DC shock if needed Physical Exam Narrative Seen and examined on the day of discharge. Patient remained in sinus rhythm. Blood cultures and urine culture negative. Antibiotics discontinued. General: Awake, alert, oriented x3. HEENT: Atraumatic, PERRLA, EOMI, Normocephalic Oral: Oral mucosa moist.? No Gingival or Mucosal Lesions/ Ulcerations Neck: Supple, No JVD, Negative Carotid Bruits Lungs:? Air entry diminished in bilateral lung bases.? No crepitation/rhonchi, tachypneic but not hypoxic Cardiovascular: Sinus rhythm, Normal S1, Normal S2, No murmurs Abdomen: Bowel Sounds present, Soft, Non Tender, Non-Distended :? spontaneous voiding. No renal angle tenderness.? No suprapubic tenderness. Extremities: No edema, Capillary Refill Less than 3 Seconds Skin:No rash. Musculoskeletal: Moderate muscle atrophy of extremities.? No Tenderness to Palpation of Joints or Extremities Neurological: Cranial nerves II-XII grossly intact, DTR? 2+/4.? Lethargy Psych/Mental Status: Flat affect Medical Records Data Medical Nutrition Assessment Dietitian: Malnutrition Criteria Met Start: 11/30/21 09:4 6 Freq: Status: Active Protocol: Document 11/30/21 09:48 [facility] (Rec: 11/30/21 09:48 [facility] [id number]) Nutrition Malnutrition Evidence of Malnutrition Exists Yes Malnutrition (severe): Acute Illness/Injury Evidenced By Suboptimal Energy Intake ( Severe),Weight Loss (Severe), Physical Changes (Mild) Clinical Problem Acute Disease or Injury Related Malnutrition Etiology severe related to inadequate energy intake Signs/Symptoms as evidenced by 8.4% wt loss and eating <50% of est nutritional needs x <2 months - pt appears to have fat/ muscle loss in face and upper body. Status Active Problem Altered Nutrient-Related Laboratory Values Etiology related to diabetes Signs/Symptoms as evidenced by A1c = 12.5 Status Active Problem Recommendation Dietitian Recommendations/Changes Will change diet to 1600 min Consistent CHO Will order 4 oz glucerna shake 4x/day w/ medpass d/t s/s of malnutrition. Weight / BMI Weight Weight: 138 lb 8 oz Body Mass Index (BMI) 23.5 ABG / Lab / Microbiology Data Result Diagrams: 12/01/21 06:10 12/01/21 06:10 Laboratory: Laboratory Results - last 24 hr 11/30/21 05:05: Phosphorus 1.1 L*, Magnesium 1.6 11/30/21 12:18: POC Glucose 380 H 11/30/21 17:12: POC Glucose 165 H 11/30/21 22:50: POC Glucose 332 H 12/01/21 05:31: POC Glucose 40 L* 12/01/21 06:10: Sodium 140, Potassium 3.1 L, Chloride 111 H, Carbon Dioxide 20.0 L, Anion Gap 9, BUN 9, Creatinine 0.52 L, Estim Creat Clear Calc 45.85, Est GFR (MDRD) Af Amer 151, Est GFR (MDRD) Non-Af 125, BUN/Creatinine Ratio 17.4, Glucose 57 L, Calcium 8.9, Phosphorus 2.5, Magnesium 1.8, TSH 39.90 H 12/01/21 06:10: WBC 9.4, RBC 4.01 L, Hgb 11.3 L, Hct 33.7 L, MCV 84.0, MCH 28.2, MCHC 33.5, RDW Std Deviation 47.0 H, RDW Coeff of [place] 15.5 H, Plt Count 253, MPV 10.9, Immature Gran % (Auto) 0.500, Neut % (Auto) 71.9 H, Lymph % (Auto) 18.2 L, [place] % (Auto) 5.0, Eos % (Auto) 3.1, Baso % (Auto) 1.3 H, Absolute Neuts (auto) 6.7, Absolute Lymphs (auto) 1.71, Nucleated RBC % 0 12/01/21 06:57: POC Glucose 99 Microbiology: Microbiology 11/29/21 11:28 Urine, Clean Catch Urine Culture - Preliminary Culture exhibits no growth. D/C Instructions Discharge Diet: 1800 Calorie Control Diet Call your doctor if you observe: Fever of 101 or Higher, Coldness, Increased Pain, Numbness or Tingling, Change in Color, Inability to urinate, Inability to have a bowel movement, Using more than 1 pad per hour, Shortness of breath, Dizziness, Fainting spells, Swelling in the ankles, Chest pain, Prolonged hicc upping, Increased palpitations (irregular heartbeat), Calf discomfort and Uncontrolled pain Meaningful Use Info Meaningful Use Diagnoses (Choose all that apply): None applicable Discharge Plan Admission Admit Date/Time: 11/29/21 12:20 Primary Reason for Your Visit: DKA Attending Provider: Kenneth Chin Primary Care Provider: Eric Bravo Discharge Orders/Prescriptions Prescriptions: New insulin lispro [Humalog KwikPen Insulin] 100 unit/mL Insulin Pen See Protocol subcut TIDAC Qty: 0 0RF Protocol: 4. Sliding Scale Insulin High-Med Dosing Condition: 150-199 mg/dl = 2 units Condition: 200-259 mg/dl = 4 units Condition: 260-324 mg/dl = 6 units Condition: 325-374 mg/dl = 8 units Condition: 375-409 mg/dl = 10 units Condition: 410-449 mg/dl = 11 units Condition: Greater than 449 call physician Protocol Text: - Use for Total Daily Dose of Insulin 56-80 units - Patient who are insulin resistant or septic HIGH MEDIUM DOSING ALGORITHM P-Eqcm-Acvuzmu 250 mg tablet 2 tab PO TID 2 Days Qty: 12 0RF magnesium oxide 400 mg magnesium tablet 400 mg PO BID Qty: 4 0RF Continued insulin aspart U-100 [Novolog Flexpen U-100 Insulin] 100 unit/mL (3 mL) insulin pen 12 unit subcut BID Qty: 15 0RF Label Comments: SLIDING SCALE 3-12 UNITS before meals Rx Instructions: Hold if glucose less than 130 mg/dl Changed Levemir FlexTouch U-100 Insuln 100 unit/mL (3 mL) insulin pen 20 unit subcut QHS Qty: 3 0RF Rx Instructions: Hold if glucose less than 130 mg/dl levothyroxine 150 MCG tablet 150 mcg PO DAILY Qty: 30 0RF Discontinued levothyroxine 137 MCG tablet 137 mcg PO QODAY Referrals / Follow Up: Eric Bravo DO [Primary Care Provider] - Disposition Disposition (needs filled in before D/C Order can be placed): Home, Self Care Charges/Coding Visit Charges Inpatient E&M: 09677 Disch Hosp
[2021-12-01] MEDS: Potassium Chloride Oral Tablet 20 MEQ 40 MEQ PO (12:33)
== END 2021-12-01 13:37 | disposition home or self-care (01) | DRG 638 ==
LOC: ED 12:41 → ICU 12:53 → PCU 11-30 13:30
PROVIDERS: Internal Medicine Critical Care Medicine; Admitting Provider Internal Medicine; Emergency Provider Emergency Medicine; PCP Family Medicine; Visit Provider Internal Medicine
DX: E11.10 Type 2 diabetes mellitus with ketoacidosis without coma (principal); N17.9 Acute kidney failure, unspecified; E83.39 Other disorders of phosphorus metabolism; I48.91 Unspecified atrial fibrillation; E86.9 Volume depletion, unspecified; E83.42 Hypomagnesemia; E11.649 Type 2 diabetes mellitus with hypoglycemia without coma; Z79.4 Long term (current) use of insulin; E89.0 Postprocedural hypothyroidism; E87.6 Hypokalemia; M17.12 Unilateral primary osteoarthritis, left knee; Z79.890 Hormone replacement therapy; Z79.899 Other long term (current) drug therapy; Z87.891 Personal history of nicotine dependence
CPT/HCPCS: 36415; 36600; 71045; 80048; 80053; 81001; 82009; 82803; 82962; 83036; 83605; 83735; 83930; 84100; 84439; 84443; 84484; 85025; 85610; 85730; 87040; 87086; 87088; 87641; 93005; 97161; 97165; 97802; 99251; 99284; J7030; J7040; A4216; G0463; J0153; J7799

== ENCOUNTER → 2022-02-04 | Outpatient (CLI) | payer MEDICARE, OTHER, SELFPAY ==
[2022-02-04 16:40] LABS: Absolute Lymphocyte Count 2.72 X10^3/uL (0.83-4.51); Absolute Neutrophil Count 6.8 X10^3/uL (2.0-7.7); Basophil# 0.12 X10^3/uL; Basophil% 1.2 % (0-1); Eosinophil# 0.14 X10^3/uL; Eosinophils% 1.4 % (0-5); Hematocrit 40.4 % (37-47); Hemoglobin 13.2 g/dL (12.0-15.0); Lymphocyte # 2.72 X10^3/ul (0.83-4.51); Lymphocyte % 26.4 % (19-41); Mean Corp Hgb Conc 32.7 g/dL (32-36); Mean Corpuscular Volume 85.6 fL (81-99); Mean Platelet Vol. 11.6 fl (6.2-12.0); Monocyte# 0.51 X10^3/uL; Monocyte% 4.9 % (0-10); NRBC Flagged by Analyzer 0 % (0-5); Neutrophil # 6.79 X10^3/uL (2.7-7.7); Neutrophil % 65.7 % (47-70); Platelet Count 360 K/mm3 (150-450); RBC Distribution Width CV 14.5 % (11.6-14.6); RBC Distribution Width SD 45.3 fl (35.1-43.9); Red Blood Count 4.72 M/mm3 (4.2-5.4); White Blood Count 10.3 K/mm3 (4.4-11.0)
[2022-02-04 16:43] LABS: Erythrocyte Sedimentation Rate 74 mm/hr (0-30)
[2022-02-04 16:44] LABS: Color, Urine Yellow (Yellow); Glucose, Dipstick 1000 mg/dl (Normal); Ketone-Dipstick 5 mg/dl (Negative); Leukocyte Esterase-Dipstick 100 /ul (Negative); Nitrite-Dipstick Negative (Negative); Occult Blood-Urine 10 /ul (Negative); Protein-Dipstick 100 mg/dl (Negative); Specific Gravity, Urine 1.025 (1.002-1.030); Urine Bilirubin Dipstick Negative (Negative); Urine Clarity Clear (Clear); Urine Urobilinogen 1 mg/dl (Normal)
[2022-02-04 17:22] LABS: ALB/GLOB Ratio 0.6 RATIO (0.9-2.4); AST(SGOT) 14 U/L (15-37); Alanine Aminotransfer ALT/SGPT 17 U/L (13-56); Albumin, Serum 3.3 g/dL (3.2-5.0); Alkaline Phosphatase 186 U/L (45-117); Anion Gap 7 (5-15); BUN 13 mg/dL (7-18); BUN/Creat Ratio 19.1 RATIO (10-20); Calcium,Total 9.2 mg/dL (8.5-10.1); Chloride 100 mmol/L (98-107); Creatinine, Serum 0.68 mg/dL (0.55-1.02); EST Glomerular Filtration Rate 91 mL/min (>60); Est Glom Filt Rate - Afr Amer 110 mL/min (>60); Globulin 5.3 g/dL (2.2-4.2); Glucose 105 mg/dL (74-106); Potassium 3.5 mmol/L (3.5-5.1); Protein, Total 8.6 g/dL (6.4-8.2); Sodium Level 134 mmol/L (136-145); T4 Free Direct 0.21 ng/dL (0.76-1.46); Uric Acid 3.2 mg/dL (2.6-6.0)
== END | disposition home or self-care (01) ==
LOC: LAB 16:04
PROVIDERS: PCP Family Medicine; Visit Provider Family Medicine
DX: I10 Essential (primary) hypertension (principal); E11.21 Type 2 diabetes mellitus with diabetic nephropathy; E03.9 Hypothyroidism, unspecified; M25.562 Pain in left knee
CPT/HCPCS: 36415; 80053; 81002; 82985; 84439; 84443; 84550; 85025; 85652; 86140; 86431

== ENCOUNTER 2022-03-15 13:57 | Inpatient (IN) | payer MEDICARE, OTHER, SELFPAY ==
[2022-03-15] VITALS (16 sets, daily range): BP systolic 78–123; BP diastolic 51–79; PULSE 86–159; RESP 15–22; TEMP 35.2–36.6; O2SAT 97–100; BMI 23.2; BMI 20.3
[2022-03-15 14:26] LABS: Bedside Glucose > 500 mg/dL (74-106)
--- NOTE | 2022-03-15 14:31 | EKG12_ITS ---
Test Reason : Blood Pressure : / mmHG Vent. Rate : 147 BPM Atrial Rate : 278 BPM P-R Int : 000 ms QRS Dur : 066 ms QT Int : 340 ms P-R-T Axes : 261 021 257 degrees QTc Int : 532 ms Atrial flutter with variable A-V block ST & T wave abnormality, consider inferior ischemia ST & T wave abnormality, consider anterolateral ischemia Abnormal ECG Confirmed by JOSÉ ANTONIO CROSS, SAMEER ([id number]), metropolitan editor NATI HUGO ([id number]) on 03/18/2022 10:11:44 AM Referred By: TATIANNA Confirmed By:SAMEER CHOU MD
[2022-03-15] MEDS: 0.9% Normal Saline 1,000 ML 1000 ML IV (14:49)
[2022-03-15 14:53] LABS: Absolute Lymphocyte Count 1.18 X10^3/uL (0.83-4.51); Absolute Neutrophil Count 9.8 X10^3/uL (2.0-7.7); Basophil# 0.05 X10^3/uL; Basophil% 0.4 % (0-1); Eosinophil# 0.01 X10^3/uL; Eosinophils% 0.1 % (0-5); Hematocrit 43.9 % (37-47); Hemoglobin 13.6 g/dL (12.0-15.0); Lymphocyte # 1.18 X10^3/ul (0.83-4.51); Lymphocyte % 10.3 % (19-41); Mean Corpuscular Hgb 28.3 pg (27.0-32.0); Mean Corpuscular Volume 91.3 fL (81-99); Mean Platelet Vol. 11.8 fl (6.2-12.0); Monocyte# 0.32 X10^3/uL; Monocyte% 2.8 % (0-10); NRBC Flagged by Analyzer 0 % (0-5); Neutrophil # 9.78 X10^3/uL (2.7-7.7); Platelet Count 366 K/mm3 (150-450); RBC Distribution Width CV 15.2 % (11.6-14.6); RBC Distribution Width SD 51.3 fl (35.1-43.9); Red Blood Count 4.81 M/mm3 (4.2-5.4); White Blood Count 11.5 K/mm3 (4.4-11.0)
--- NOTE | 2022-03-15 15:03 | CPS ---
critical values on ABG. Dr li notified of critical values
[2022-03-15 15:20] LABS: Mucous, Urine 0 SEEN /hpf (<or=2+)
[2022-03-15 15:20] LABS: ALB/GLOB Ratio 0.6 RATIO (0.9-2.4); AST(SGOT) 125 U/L (15-37); Alanine Aminotransfer ALT/SGPT 32 U/L (13-56); Albumin, Serum 2.8 g/dL (3.2-5.0); Alkaline Phosphatase 239 U/L (45-117); Anion Gap 29 (5-15); BUN 43 mg/dL (7-18); BUN/Creat Ratio 30.9 RATIO (10-20); Calcium,Total 9.2 mg/dL (8.5-10.1); Chloride 89 mmol/L (98-107); Creatinine, Serum 1.39 mg/dL (0.55-1.02); EST Glomerular Filtration Rate 40 mL/min (>60); Est Glom Filt Rate - Afr Amer 48 mL/min (>60); Estimated Creatinine Clearance 32.99 ml/min; Globulin 4.8 g/dL (2.2-4.2); Glucose 799 mg/dL (74-106); Potassium 5.1 mmol/L (3.5-5.1); Protein, Total 7.6 g/dL (6.4-8.2); Sodium Level 124 mmol/L (136-145); Troponin-I HS 92 pg/mL (3.0-54.0)
[2022-03-15 15:28] LABS: Color, Urine Yellow (Yellow); Glucose, Dipstick 1000 mg/dl (Normal); Leukocyte Esterase-Dipstick 500 /ul (Negative); Nitrite-Dipstick Negative (Negative); Occult Blood-Urine 25 /ul (Negative); Protein-Dipstick 30 mg/dl (Negative); Urine Bilirubin Dipstick Negative (Negative); Urine Clarity Clear (Clear); Urine Urobilinogen Normal (Normal)
[2022-03-15 15:33] LABS: Ketone-Dipstick 150 mg/dl (Negative)
[2022-03-15 15:40] LABS: Bacteria 3+ /hpf (None Seen); Red Blood Cells-Urine 25-50 SEEN /hpf (0-5); Squamous Epithelial Cells - UA 5-10 SEEN /hpf (5-10); White Blood Cells 25-50 SEEN /hpf (0-5)
[2022-03-15 15:41] LABS: Fine Granular Cast- Urine 0-5 SEEN /lpf (0-5)
[2022-03-15 15:42] LABS: Hyaline Cast 0-5 SEEN /lpf (0-5)
--- NOTE | 2022-03-15 15:45 | EDS_ITS ---
HPI History of Present Illness Chief Complaint: Hyperglycemia Informant: patient and family Onset/Context/Timing Onset: Today Context: Gradual Onset Timing: Continuous Quality: Weakness Location: Generalized Worsened by: Nothing Relieved by: Nothing Narrative Narrative: Patient presents with elevated blood sugars that became worse today. Son states that her blood sugar was too high to be read by her home meter. Patient states that she has gradually gotten worse throughout the day. Patient states she feels thirsty all the time. Patient denies any urinary frequency. Patient denies any dysuria or hematuria. Patient denies any fevers or chills. Patient normally takes insulin for her diabetes. Patient denies any nausea or vomiting. Patient denies any chest pain or shortness of breath. [facility] Medical History (Updated 03/15/22 @ 16:[address] Eduardo Bhatt DO) Diabetes Elevated TSH Osteoarthritis of left knee Thyroid disease Home Medications insulin aspart U-100 100 unit/mL (3 mL) subcutaneous pen (Novolog Flexpen U-100 Insulin aspart) 12 unit (0.12 mL) subcut BID #15 mL 12/01/21 [Rx Last Taken Unknown] insulin detemir U-100 100 unit/mL (3 mL) subcutaneous pen (Levemir FlexTouch U- 100 Insulin) 20 unit (0.2 mL) subcut QHS #3 mL 12/01/21 [Rx Last Taken Unknown] insulin lispro 100 unit/mL subcutaneous pen (Humalog KwikPen (U-100) Insulin) See Protocol subcut TIDAC #0 mL 12/01/21 [Rx Last Taken Unknown] levothyroxine 150 mcg tablet 150 mcg PO DAILY #30 tabs 12/01/21 [Rx Last Taken 02/25/17 07:00] magnesium oxide 400 mg PO BID #4 tabs 12/01/21 [Rx Last Taken Unknown] sodium di- and monophosphate-potassium phos monobasic 250 mg tablet (V-Aqbk-Ejpjvqo) 2 tab PO TID 2 days #12 tabs 12/01/21 [Rx Last Taken Unknown] Allergy/AdvReac Type Severity Reaction Status Date / Time EGGS Allergy Vomiting Uncoded 03/15/22 13:59 Family History Mother Diabetes Heart disease Father Diabetes Cancer Throat cancer Surgical History (Updated 01/03/22 @ 02:11 by Mitch Purvis) H/O: s/p right shoulder surgery Social History Smoking Status: Former smoker substance use type: does not use ROS ROS ED Constitutional Constitutional ED: Denies chills or fever(s) Eyes Eyes: Denies blurry vision or change in vision ENT ENT ED: Denies rhinorrhea or sore throat Cardiovascular Cardiovascular: Denies chest pain or palpitations Respiratory/Chest Respiratory/Chest: Denies cough or dyspnea Gastrointestinal Gastrointestinal: Denies nausea or vomiting Genitourinary Genitourinary ED: Denies dysuria or hematuria Musculoskeletal Musculoskeletal: Denies back pain or neck pain Integumentary Denies abscess or rash Neurologic Neurologic: Denies headache(s) or weakness Endocrine Endocrinology: Reports polydipsia Allergic/Immunologic Allergic/Immunologic ED: Denies mouth swelling or urticaria EXAM Physical Exam Const Vital Signs: 03/15/22 13:59 03/15/22 14:01 03/15/22 14:03 Temperature 95.4 F L Temperature Source Temporal Pulse Rate 134 H 136 H Respiratory Rate 15 19 H Respiratory Effort Normal Respiratory Pattern Normal Blood Pressure 123/79 H 123/79 H Blood Pressure Mean 93 93 Pulse Ox 100 100 Oxygen Delivery Method Room Air Room Air 03/15/22 16:17 Temperature Temperature Source Pulse Rate 159 H Respiratory Rate 22 H Respiratory Effort Respiratory Pattern Blood Pressure Blood Pressure Mean Pulse Ox 98 Oxygen Delivery Method Room Air Positive well nourished and well developed General Appearance ED: well developed HEENT Reports dry mucous membranes Mouth ED: Yes dry mucous membranes Mouth: dry mucous membranes Eyes PERRL and EOMs intact bilaterally Neck supple and no JVD Resp normal respiratory effort and clear to auscultation bilaterally Cardio regular rhythm Rate: tachycardic GI normal to inspection, nondistended, normoactive bowel sounds and non-tender Palpation: soft Extremity normal to inspection General Extremety ED: Negative for edema or tenderness General Extremity: Negative for edema Neuro oriented x3, CN's II-XII intact bilaterally and no sensory deficits noted Sensorium / Orientation: alert Motor Exam: strength 5/5 throughout Psych mental status grossly normal MDM MDM MDM Narrative Medical decision making narrative: Patient was given IV fluids. EKG was obtained. On my interpretation, it shows a sinus tachycardia with a rate of 147. There is some mild ST depression in the precordial leads. This is likely rate related. QRS interval and QTc intervals are within normal limits. [place] is normal. CBC shows a mild leukocytosis of 11.5. Comprehensive metabolic profile shows an elevated glucose of 799, BUN of 43, creatinine 1.39. CO2 was low at 6.0. Anion gap was high at 29. Urinalysis shows leukocyte esterase of 500. There were 25-50 white blood cells and 25-50 red blood cells. There were 5-10 squamous epithelial cells. There is 3+ bacteria. Urine ketones were 150. Arterial blood gas shows a pH of 7.208, PCO2 of 10.6, PO2 of 134.2, bicarb of 4.2, and oxygen saturation of 98.5% on room air. Patient was started on insulin drip. Urine culture was obtained. Patient was started on Rocephin. Case was discussed with the hospitalist. He will admit the patient to ICU. Patient and family understood and were agreeable with the plan. All questions were answered. Lab Data Attestation: I reviewed the patient's lab results. Labs: Laboratory Results - last 24 hr 03/15/22 03/15/22 03/15/22 14:06 14:43 14:43 WBC 11.5 H RBC 4.81 Hgb 13.6 Hct 43.9 MCV 91.3 MCH 28.3 MCHC 31.0 L RDW Std Deviation 51.3 H RDW Coeff of Mateus 15.2 H Plt Count 366 MPV 11.8 Immature Gran % (Auto) 1.400 H Neut % (Auto) 85.0 H Lymph % (Auto) 10.3 L [place] % (Auto) 2.8 Eos % (Auto) 0.1 Baso % (Auto) 0.4 Absolute Neuts (auto) 9.8 H Absolute Lymphs (auto) 1.18 Nucleated RBC % 0 Sodium 124 L Potassium 5.1 Chloride 89 L Carbon Dioxide 6.0 L* Anion Gap 29 H BUN 43 H Creatinine 1.39 H Estim Creat Clear Calc 32.99 Est GFR (MDRD) Af Amer 48 L Est GFR (MDRD) Non-Af 40 L BUN/Creatinine Ratio 30.9 H Glucose 799 H* Calcium 9.2 Total Bilirubin 0.90 AST 125 H ALT 32 Alkaline Phosphatase 239 H Troponin I High Sens 92 H Total Protein 7.6 Albumin 2.8 L Globulin 4.8 H Albumin/Globulin Ratio 0.6 L Urine Color Urine Clarity Urine pH Ur Specific [place] Urine Protein Urine Glucose (UA) Urine Ketones Urine Occult Blood Urine Nitrite Urine Bilirubin Urine Urobilinogen Ur Leukocyte Esterase Urine RBC Urine WBC Ur Squamous Epith Cells Urine Bacteria Hyaline Casts Fine Granular Casts Urine Mucus Acetone Level POC Glucose > 500 H* 03/15/22 03/15/22 14:43 15:15 WBC RBC Hgb Hct MCV MCH MCHC RDW Std Deviation RDW Coeff of Mate[place] Plt Count MPV Immature Gran % (Auto) Neut % (Auto) Lymph % (Auto) [place] % (Auto) Eos % (Auto) Baso % (Auto) Absolute Neuts (auto) Absolute Lymphs (auto) Nucleated RBC % Sodium Potassium Chloride Carbon Dioxide Anion Gap BUN Creatinine Estim Creat Clear Calc Est GFR (MDRD) Af Amer Est GFR (MDRD) Non-Af BUN/Creatinine Ratio Glucose Calcium Total Bilirubin AST ALT Alkaline Phosphatase Troponin I High Sens Total Protein Albumin Globulin Albumin/Globulin Ratio Urine Color Yellow Urine Clarity Clear Urine pH 5.0 Ur Specific [place] 1.020 Urine Protein 30 H Urine Glucose (UA) 1000 H Urine Ketones 150 A* Urine Occult Blood 25 H Urine Nitrite Negative Urine Bilirubin Negative Urine Urobilinogen Normal Ur Leukocyte Esterase 500 H Urine RBC 25-50 SEEN Urine WBC 25-50 SEEN Ur Squamous Epith Cells 5-10 SEEN Urine Bacteria 3+ Hyaline Casts 0-5 SEEN Fine Granular Casts 0-5 SEEN Urine Mucus 0 SEEN Acetone Level MODERATE H POC Glucose ABG Data ABG results: ABG 03/15/22 15:03 Specimen Type ART Sample Site R Radial pH 7.21 L Bicarbonate Actual 4.2 L Total CO2 < 5 Base Excess -24 L O2 Saturation 99 O2 % 21 ABG pCO2 10.6 L* ABG pO2 134 H Driss Test Positive O2 Delivery Device Room Air Crit Call To/Read Back Yes EKG Initial EKG: Attestation: I personally reviewed and interpreted this EKG as follows: Interpretation: Sinus Tachycardia (147) and Non-Specific ST Changes Prior EKG tracings: available for review Prior: Unchanged (11/30/2021) Critical Care Time Critical Care Time: Yes Critical care time (excluding procedures): 30-74 minutes (37), Including time spent:, Discussing w/Patient &/or Family/Derrick Worker [facility], Discussing w/Consultants, Arranging Admission or Transfer and Performing Direct Patient Care at Bedside Discharge Plan Dx/Rx/DC Orders Clinical Impression: Diabetic ketoacidosis, Urinary tract infection, Tachycardia Disposition Disposition: Acute Care [facility]
[2022-03-15] MEDS: 0.9% Normal Saline 1,000 ML 999 ML IV ×2 (16:19→17:11)
[2022-03-15 16:25] LABS: Allen Test Positive; Base Excess -24 mmol/L (-2 to +2); Bicarbonate 4.2 mmol/L (22-26); Blood Gas Specimen Type ART; FI02 21; O2 Delivery Device Room Air; PO2 134 mmHG (75-100); SITE R Radial; SO2 99 % (95-99); Total Carbon Dioxide < 5 mmol/L; pCO2 10.6 mmHg (35-45); pH 7.21 (7.35-7.45)
[2022-03-15] MEDS: Ceftriaxone 1 GM/50 ML BAG IV (16:36)
--- NOTE | 2022-03-15 17:08 | CM.ED ---
SW was advised by [employer]eds[employer] that while reviewing the patient's meds with her patient's said I try to stay on top of it and patient was not able to respond to questions regarding medication compliance. Test Tech voiced concerns about if patient is taking medication as directed. April BENITEZ
--- NOTE | 2022-03-15 17:12 | ED.RN ---
DISCUSSED SEPSIS ALERT WITH ED DR. STATED IT'S RELATED TO THE DIABETIC KETOACIDOSIS. ADDITIONAL FLUIDS VERBAL ORDERED AND HUNG. Shandra PONCE RN [id number]
[2022-03-15 17:20] LABS: Bedside Glucose 485 mg/dL (74-106)
--- NOTE | 2022-03-15 17:35 | EKG12_ITS ---
Test Reason : RHYTHMN CHANGE Blood Pressure : / mmHG Vent. Rate : 084 BPM Atrial Rate : 084 BPM P-R Int : 104 ms QRS Dur : 072 ms QT Int : 408 ms P-R-T Axes : -29 012 226 degrees QTc Int : 482 ms Sinus rhythm with short WV with Premature supraventricular complexes ST & T wave abnormality, consider lateral ischemia Abnormal ECG Confirmed by JOSÉ ANTONIO CROSS, SAMEER ([id number]), editorial cartoonist NATI HUGO ([id number]) on 03/18/2022 10:13:11 AM Referred By: Confirmed By:SAMEER CHOU MD
--- NOTE | 2022-03-15 18:54 | NURSING ---
The 3rd bolus of Normal Saline was clamped upon arrival to ICU from ED, Bag was also still full. Bag was unclamped and restarted at this time.
[2022-03-15] MEDS: Dext 5%-0.45% NS 1,000 ML 150 ML IV (19:20)
--- NOTE | 2022-03-15 19:29 | HP.PCM.HOS_ITS ---
HPI - General General Date of Admission: 03/15/22 Date of Service: 03/15/22 Chief Complaint: Elevated blood sugars, DKA HPI Narrative DURAN DEVI, is a 71 F who presents to the emergency room today after being brought in by her due to elevated blood sugars at home and lack of oral intake. Patient has type 2 diabetes, the last time the patient was here was in November of this year and it was for DKA. At the time of that admission, patient had atrial fibrillation for short period of time which resolved after treatment of the DKA. Labs were obtained in the emergency room, patient's anion gap was 29, carbon dioxide was 6, patient's potassium was 5.1 and sodium was 124. Patient's BUN was 43 and creatinine was 1.39, patient's blood sugar was 799, troponin was 92. Urinalysis was remarkable for 25-50 RBCs, 25-50 WBCs, and +3 bacteria. Patient's white blood cell count was 11.5, patient's arterial blood gas showed a pH of 7.21, PCO2 was 10.6, PO2 was 134. Patient will be admitted to ICU for DKA and metabolic encephalopathy, before she was discharged from the emergency room, patient went back into atrial fibrilla tion with a rate in the low 100s. I talked at length with the patient's , he states that the patient's memory has been poor over the last few weeks, she does not check her sugars unless prompted at times by the , he states he had an office visit with her PCP approximately a week ago but very little was sad about her diabetic control. Patient's last hemoglobin A1c was highly elevated, I have elected to repeat the A1c this admission. [facility] Medical History Diabetes Elevated TSH Osteoarthritis of left knee Thyroid disease Home Medications insulin aspart U-100 100 unit/mL (3 mL) subcutaneous pen (Novolog Flexpen U-100 Insulin aspart) 12 unit (0.12 mL) subcut BID #15 mL 12/01/21 [Rx Last Taken Unknown] insulin detemir U-100 100 unit/mL (3 mL) subcutaneous pen (Levemir FlexTouch U- 100 Insulin) 20 unit (0.2 mL) subcut QHS #3 mL 12/01/21 [Rx Last Taken Unknown] folic acid 400 mcg tablet 0.4 mg PO DAILY SUPPLEMENT 03/15/22 [History Last Taken Unknown] levothyroxine 150 mcg tablet 150 mcg PO UD THYROID 03/15/22 [History Last Taken Unknown] losartan 25 mg tablet 25 mg PO DAILY BLOOD PRESSURE 03/15/22 [History Last Taken Unknown] magnesium oxide 400 mg PO DAILY SUPPLEMENT 03/15/22 [History Last Taken Unknown] methotrexate sodium 2.5 mg tablet 12.5 mg PO QWEEK 03/15/22 [History Last Taken Unknown] Allergy/AdvReac Type Severity Reaction Status Date / Time egg [eggs] AdvReac Vomiting Verified 03/15/22 18:19 Family History Mother Diabetes Heart disease Father Diabetes Cancer Throat cancer Surgical History H/O: s/p right shoulder surgery Social History Smoking Status: Former smoker substance use type: does not use ROS ROS Narrative Review of systems was unobtainable due to patient's metabolic encephalopathy Vital Signs Vital Signs Vital Signs: 03/15/22 13:59 03/15/22 14:01 03/15/22 14:03 Temperature 95.4 F L Temperature Source Temporal Pulse Rate 134 H 136 H Respiratory Rate 15 19 H Respiratory Effort Normal Respiratory Pattern Normal Blood Pressure 123/79 H 123/79 H Blood Pressure [BP] Blood Pressure Mean 93 93 Blood Pressure Mean [BP] Blood Pressure Source Blood Pressure Source [BP] Blood Pressure Position Blood Pressure Position [BP] Blood Pressure Location Blood Pressure Location [BP] Pulse Ox 100 100 Oxygen Delivery Method Room Air Room Air 03/15/22 16:17 03/15/22 17:01 03/15/22 17:13 Temperature 97.6 F L 97.6 F L Temperature Source Temporal Temporal Pulse Rate 159 H 152 H 152 H Respiratory Rate 22 H 20 H 20 H Respiratory Effort Respiratory Pattern Blood Pressure 78/60 L 78/60 L Blood Pressure [BP] Blood Pressure Mean 66 66 Blood Pressure Mean [BP] Blood Pressure Source Blood Pressure Source [BP] Blood Pressure Position Blood Pressure Position [BP] Blood Pressure Location Blood Pressure Location [BP] Pulse Ox 98 100 100 Oxygen Delivery Method Room Air Room Air Room Air 03/15/22 18:43 03/15/22 18:23 03/15/22 18:30 Temperature 97.9 F Temperature Source Temporal Pulse Rate 86 88 92 Respiratory Rate 22 H 22 H Respiratory Effort Respiratory Pattern Blood Pressure 93/51 L 96/57 L Blood Pressure [BP] Blood Pressure Mean 65 70 Blood Pressure Mean [BP] Blood Pressure Source Monitor Monitor Blood Pressure Source [BP] Blood Pressure Position Semi-Fowlers Semi-Fowlers Blood Pressure Position [BP] Blood Pressure Location Left Arm Left Arm Blood Pressure Location [BP] Pulse Ox 99 98 Oxygen Delivery Method Room Air Room Air 03/15/22 18:45 03/15/22 19:00 Temperature Temperature Source Pulse Rate 94 88 Respiratory Rate 20 H 18 Respiratory Effort Respiratory Pattern Blood Pressure 106/54 L Blood Pressure [BP] 100/55 L Blood Pressure Mean 71 Blood Pressure Mean [BP] 70 Blood Pressure Source Monitor Blood Pressure Source [BP] Monitor Blood Pressure Position Semi-Fowlers Blood Pressure Position [BP] Semi-Fowlers Blood Pressure Location Left Arm Blood Pressure Location [BP] Left Arm Pulse Ox 100 97 Oxygen Delivery Method Room Air Room Air Weight Weight: 53.7 kg Body Mass Index (BMI) 20.3 Physical Exam Const alert Constitutional Narrative: Patient is alert, she has a hard time carrying on a conversation however, she gives some medical information however. General Appearance: cooperative Orientation / Consciousness: awake, oriented to person and oriented to place HEENT normocephalic, head/scalp atraumatic and hearing grossly normal bilaterally HEENT Narrative: Mucous membranes are extremely dry Eyes PERRL, EOMs intact bilaterally and conjunctivae normal Neck supple, no JVD, thyroid normal and no carotid bruits General: trachea midline Resp normal respiratory effort, no retractions, no use of accessory muscles and clear to auscultation bilaterally Auscultation: Negative for rales, rhonchi or wheezes Cardio S1 normal heart sound, S2 normal heart sound, no murmurs, no rub and no gallops Cardio Narrative: Heart rate and rhythm is irregular GI normal to inspection, nondistended, normoactive bowel sounds, soft to palpation, non-tender and non-distended Extremity no clubbing, cyanosis or edema Skin no rashes or lesions noted General Skin Exam: no breakdown Neuro CN's II-XII intact bilaterally, no focal motor deficits and no sensory deficits noted Sensorium / Orientation: awake and alert Psych Psych Narrative: Patient has left affect with some confusion noted Results Lab / Micro Data Result Diagrams: 03/15/22 14:43 03/15/22 14:43 Labs: Laboratory Results - last 24 hr 03/15/22 14:06: POC Glucose > 500 H* 03/15/22 14:43: WBC 11.5 H, RBC 4.81, Hgb 13.6, Hct 43.9, MCV 91.3, MCH 28.3, MCHC 31.0 L, RDW Std Deviation 51.3 H, RDW Coeff of Matesu 15.2 H, Plt Count 366, MPV 11.8, Immature Gran % (Auto) 1.400 H, Neut % (Auto) 85.0 H, Lymph % (Auto) 10.3 L, Patrick % (Auto) 2.8, Eos % (Auto) 0.1, Baso % (Auto) 0.4, Absolute Neuts (auto) 9.8 H, Absolute Lymphs (auto) 1.18, Nucleated RBC % 0 03/15/22 14:43: Sodium 124 L, Potassium 5.1, Chloride 89 L, Carbon Dioxide 6.0 L*, Anion Gap 29 H, BUN 43 H, Creatinine 1.39 H, Estim Creat Clear Calc 32.99, Est GFR (MDRD) Af Amer 48 L, Est GFR (MDRD) Non-Af 40 L, BUN/Creatinine Ratio 30.9 H, Glucose 799 H*, Calcium 9.2, Total Bilirubin 0.90, AST 125 H, ALT 32, Alkaline Phosphatase 239 H, Troponin I High Sens 92 H, Total Protein 7.6, Albumin 2.8 L, Globulin 4.8 H, Albumin/Globulin Ratio 0.6 L 03/15/22 14:43: Acetone Level MODERATE H 03/15/22 15:15: Urine Color Yellow, Urine Clarity Clear, Urine pH 5.0, Ur Specific [place] 1.020, Urine Protein 30 H, Urine Glucose (UA) 1000 H, Urine Ketones 150 A*, Urine Occult Blood 25 H, Urine Nitrite Negative, Urine Bilirubin Negative, Urine Urobilinogen Normal, Ur Leukocyte Esterase 500 H, Urine RBC 25- 50 SEEN, Urine WBC 25-50 SEEN, Ur Squamous Epith Cells 5-10 SEEN, Urine Bacteria 3+, Hyaline Casts 0-5 SEEN, Fine Granular Casts 0-5 SEEN, Urine Mucus 0 SEEN 03/15/22 16:59: POC Glucose 485 H* ABG Data ABG results: ABG 03/15/22 15:03 Specimen Type ART Sample Site R Radial pH 7.21 L Bicarbonate Actual 4.2 L Total CO2 < 5 Base Excess -24 L O2 Saturation 99 O2 % 21 ABG pCO2 10.6 L* ABG pO2 134 H Driss Test Positive O2 Delivery Device Room Air Crit Call To/Read Back Yes Assessment & Plan Assessment/Plan (1) Diabetic ketoacidosis: PLAN: Plan 1. Diabetic ketoacidosis secondary to uncontrolled type 2 diabetes-patient will be admitted to ICU, she was placed on an insulin drip, IV fluids will be given, BMP will be monitored #2 acute cystitis-patient was given IV Rocephin, this will be continued in the ICU, urine culture was obtained #3 metabolic encephalopathy secondary to #1-complicates care, management, recovery, and prognosis #4 paroxysmal atrial fibrillation-patient's heart rate is controlled at this time, it is hopeful that this atrial fibrillation will resolve on its own with treatment of the DKA, if not, patient may need to be placed on rate limiting medications as well as anticoagulants #5 poor compliance with medical regimen, it is not apparent to me whether the patient does not understand her disease state or whether she is noncompliant due to cognitive impairment, patient will be reevaluated after she is stabilized #6 hypothyroidism-patient will resume her Synthroid when her mental status impr oves Charges/Coding Visit Charges Inpatient E&M: 34472 Init Hosp L3
[2022-03-15 20:01] LABS: Bedside Glucose 342 mg/dL (74-106)
[2022-03-15 20:01] LABS: Bedside Glucose 191 mg/dL (74-106)
[2022-03-15 21:46] LABS: Anion Gap 13 (5-15); BUN 34 mg/dL (7-18); BUN/Creat Ratio 38.2 RATIO (10-20); Calcium,Total 8.3 mg/dL (8.5-10.1); Chloride 104 mmol/L (98-107); Creatinine, Serum 0.89 mg/dL (0.55-1.02); EST Glomerular Filtration Rate 67 mL/min (>60); Est Glom Filt Rate - Afr Amer 81 mL/min (>60); Estimated Creatinine Clearance 50.57 ml/min; Glucose 136 mg/dL (74-106); Potassium 3.4 mmol/L (3.5-5.1); Sodium Level 134 mmol/L (136-145)
[2022-03-15 22:50] LABS: Bedside Glucose 155 mg/dL (74-106)
[2022-03-15 22:50] LABS: Bedside Glucose 135 mg/dL (74-106)
[2022-03-15 23:46] LABS: Bedside Glucose 91 mg/dL (74-106)
[2022-03-15 23:46] LABS: Bedside Glucose 96 mg/dL (74-106)
[2022-03-16] VITALS (22 sets, daily range): BP systolic 98–130; BP diastolic 52–79; PULSE 75–91; RESP 14–21; TEMP 36.2–36.9; O2SAT 97–100
[2022-03-16 00:35] LABS: Bedside Glucose 78 mg/dL (74-106)
[2022-03-16 00:50] LABS: Anion Gap 9 (5-15); BUN 29 mg/dL (7-18); BUN/Creat Ratio 37.4 RATIO (10-20); Calcium,Total 8.4 mg/dL (8.5-10.1); Chloride 103 mmol/L (98-107); Creatinine, Serum 0.78 mg/dL (0.55-1.02); EST Glomerular Filtration Rate 78 mL/min (>60); Est Glom Filt Rate - Afr Amer 95 mL/min (>60); Estimated Creatinine Clearance 45.01 ml/min; Glucose 72 mg/dL (74-106); Potassium 3.3 mmol/L (3.5-5.1); Sodium Level 134 mmol/L (136-145)
[2022-03-16 01:00] LABS: Hemoglobin A1c 11.5 % (3.8-5.6)
[2022-03-16] MEDS: Dext 5%-0.45% NS 1,000 ML 150 ML IV (02:02)
[2022-03-16] MEDS: Potassium Chloride Oral Tablet 20 MEQ 40 MEQ PO (02:04)
[2022-03-16 02:11] LABS: Bedside Glucose 79 mg/dL (74-106)
[2022-03-16 03:21] LABS: Bedside Glucose 189 mg/dL (74-106)
[2022-03-16] MEDS: Insulin Glargine-YFGN 100 UNIT/ML Pen 15 UNIT SC (03:37)
[2022-03-16 05:49] LABS: Anion Gap 15 (5-15); BUN 24 mg/dL (7-18); BUN/Creat Ratio 31.6 RATIO (10-20); Calcium,Total 7.7 mg/dL (8.5-10.1); Chloride 102 mmol/L (98-107); Creatinine, Serum 0.76 mg/dL (0.55-1.02); EST Glomerular Filtration Rate 80 mL/min (>60); Est Glom Filt Rate - Afr Amer 97 mL/min (>60); Estimated Creatinine Clearance 45.85 ml/min; Glucose 227 mg/dL (74-106); Potassium 3.9 mmol/L (3.5-5.1); Sodium Level 132 mmol/L (136-145)
[2022-03-16] MEDS: Insulin Lispro 100 UNIT/ML INSULN.PEN SC ×5 (07:22→21:48)
[2022-03-16 07:40] LABS: Bedside Glucose 222 mg/dL (74-106)
[2022-03-16] MEDS: Folic Acid 1 MG Tablet 0.5 MG PO (08:07)
[2022-03-16] MEDS: Famotidine 20 MG Tablet PO (08:08)
[2022-03-16] MEDS: Ceftriaxone 1 GM/50 ML BAG IV (10:00)
--- NOTE | 2022-03-16 11:00 | CASEMGMT ---
Addendum entered by Jennyfer Cannon 03/16/22 11:49: Patient was provided a list of C providers including quality and resource use data and consistent with the patient?s preferred geographic region, medical needs, and insurance network were provided from the CarePort Guide. Pt chose [facility], referral sent via careport and vm left on intake Jessenia's line. Original Note: MARILYN HEKC Assessment: Face to Face with pt for initial transition planning/care coordination assessment. MARILYN HECK introduced self and role at [facility], pt voices understanding and consents to assessment. Pt is A/O x4 and answers all questions appropriately at this time. present at bedside and assists with answering assessment questions. Care providers, pharmacy, and demographics verified/updated. Admitting Dx: DKA PCP:[facility] Specialists:ortho, unsure of name; Pt was to see but missed appt because was not aware of appt. States they will not see her now. Preferred Pharmacy: [facility] Insurance: [facility], [facility] Prescription Benefit: yes LW/HPOA: Pt denies having a LW/DPOA and denies need for info regarding AD. LNOK: Mir Little, Living Arrangements: Pt lives with in a two story house with no steps to enter. Pt had been I in ADL's up until lately. Pt recently was dx with RA and this has made her needs some assistance with bathing and dressing from . Transportation: Pt has not driven in a long time and provides transportation. DME/HHC/SNF: Pt has BGM with sufficient supplies. Pt tests on own 3-4x/day and administers own insulin. Pt recently purchased [employer] but has not shown pt how to use. Pt has a FWW that she uses. Pt denies hx of HHC or SNF stays. Pt states no concerns with going home at time of dc. Discussed HHC for SN and therapy as pt could receive diabetic education as well as strengthening. Pt aware that he may need to step in to assist pt with blood sugar monitoring. Pt and are agreeable to HHC. Pt states no further concerns/needs. CM to follow. Advised pt to ask CM if any further question/concerns/needs arise, voices understanding. Pt Goal: Home with HHC Plan: Home with HHC
[2022-03-16 11:41] LABS: Bedside Glucose 340 mg/dL (74-106)
--- NOTE | 2022-03-16 14:23 | PN.HOSP_ITS ---
Subjective Subjective Patient was seen and examined today, she is more alert, she admitted to this examiner that she is noncompliant with her diabetic treatment at home, I went over this with the who was in the room at the time my examination, I called her PCPs office and talk to a physician who was in the group, it was charted that the patient was referred to [facility] for diabetic treatment but according to the , patient did not show up for her appointment in the office will not see her Patient is anion gap is closed, she appears stable for discharge to the floor at this time. Objective Data Objective Data Vital Signs: Vital Signs Temp Pulse Resp BP Pulse Ox O2 Del Method 97.8 F 78 18 113/59 L 100 Room Air 03/16/22 12:00 03/16/22 14:00 03/16/22 14:00 03/16/22 14:00 03/16/22 14:00 03/16/22 14:00 Oxygen Delivery Method Room Air Weight: 55.3 kg Body Mass Index (BMI) 20.3 Intake & Output: Intake and Output for Last 24 Hours 03/14/22 03/15/22 03/16/22 23:59 23:59 23:59 Intake Total 3078.47 / 3078.47 1572.75 / 1572.75 Output Total 0 / 0 Balance 3078.47 / 3078.47 1572.75 / 1572.75 Medical Nutrition Assessment Dietitian: Malnutrition Criteria Met Start: 03/16/22 10:40 Freq: Status: Active Protocol: Document 03/16/22 10:40 RMA (Rec: 03/16/22 10:40 RMA [id number]) Nutrition Malnutrition Evidence of Malnutrition Exists Yes Malnutrition (severe): Acute Illness/Injury,Chronic Evidenced By Suboptimal Energy Intake ( Severe),Weight Loss (Severe) Clinical Problem Chronic Disease or Condition Related Malnutrition Etiology Severe protein-calorie malnutrition in the context of acute on chronic disease related to hyperglycemia/ poorly controlled blood glucose/increased energy expenditure/dietary noncompliance and inadequate energy intake Signs/Symptoms as evidenced by 12% wt loss x past 3-4 months, BMI 20.9 and PO meeting less than 50% estimated nutrition needs x past 1-2 months Status Active Problem Recommendation Dietitian Recommendations/Changes Continue 1800 calorie/ consistent carbohydrate diet as ordered. Will add 120 ml glucerna shake TID w/ medpass. Diet instruction prior to d/c; encourage follow-up in [facility]. Lab / Micro Data Result Diagrams: 03/15/22 14:43 03/16/22 05:20 Labs: Laboratory Results - last 24 hr 03/15/22 14:06: POC Glucose > 500 H* 03/15/22 14:43: WBC 11.5 H, RBC 4.81, Hgb 13.6, Hct 43.9, MCV 91.3, MCH 28.3, MCHC 31.0 L, RDW Std Deviation 51.3 H, RDW Coeff of [place] 15.2 H, Plt Count 366, MPV 11.8, Immature Gran % (Auto) 1.400 H, Neut % (Auto) 85.0 H, Lymph % (Auto) 10.3 L, [place] % (Auto) 2.8, Eos % (Auto) 0.1, Baso % (Auto) 0.4, Absolute Neuts (auto) 9.8 H, Absolute Lymphs (auto) 1.18, Nucleated RBC % 0 03/15/22 14:43: Sodium 124 L, Potassium 5.1, Chloride 89 L, Carbon Dioxide 6.0 L*, Anion Gap 29 H, BUN 43 H, Creatinine 1.39 H, Estim Creat Clear Calc 32.99, Est GFR (MDRD) Af Amer 48 L, Est GFR (MDRD) Non-Af 40 L, BUN/Creatinine Ratio 30.9 H, Glucose 799 H*, Calcium 9.2, Total Bilirubin 0.90, AST 125 H, ALT 32, Alkaline Phosphatase 239 H, Troponin I High Sens 92 H, Total Protein 7.6, Albumin 2.8 L, Globulin 4.8 H, Albumin/Globulin Ratio 0.6 L 03/15/22 14:43: Acetone Level MODERATE H 03/15/22 15:15: Urine Color Yellow, Urine Clarity Clear, Urine pH 5.0, Ur Specific [place] 1.020, Urine Protein 30 H, Urine Glucose (UA) 1000 H, Urine Ketones 150 A*, Urine Occult Blood 25 H, Urine Nitrite Negative, Urine Bilirubin Negative, Urine Urobilinogen Normal, Ur Leukocyte Esterase 500 H, Urine RBC 25- 50 SEEN, Urine WBC 25-50 SEEN, Ur Squamous Epith Cells 5-10 SEEN, Urine Bacteria 3+, Hyaline Casts 0-5 SEEN, Fine Granular Casts 0-5 SEEN, Urine Mucus 0 SEEN 03/15/22 16:59: POC Glucose 485 H* 03/15/22 18:11: POC Glucose 342 H 03/15/22 19:19: POC Glucose 191 H 03/15/22 20:21: POC Glucose 155 H 03/15/22 21:00: Sodium 134 L, Potassium 3.4 L, Chloride 104, Carbon Dioxide 17.0 L, Anion Gap 13, BUN 34 H, Creatinine 0.89, Estim Creat Clear Calc 50.57, Est GFR (MDRD) Af Amer 81, Est GFR (MDRD) Non-Af 67, BUN/Creatinine Ratio 38.2 H, Glucose 136 H, Calcium 8.3 L 03/15/22 21:16: POC Glucose 135 H 03/15/22 22:32: POC Glucose 96 03/15/22 23:24: POC Glucose 91 03/16/22 00:18: POC Glucose 78 03/16/22 00:25: Sodium 134 L, Potassium 3.3 L, Chloride 103, Carbon Dioxide 22.0, Anion Gap 9, BUN 29 H, Creatinine 0.78, Estim Creat Clear Calc 45.01, Est GFR (MDRD) Af Amer 95, Est GFR (MDRD) Non-Af 78, BUN/Creatinine Ratio 37.4 H, Glucose 72 L, Calcium 8.4 L 03/16/22 00:25: Hemoglobin A1c 11.5 H 03/16/22 01:49: POC Glucose 79 03/16/22 02:58: POC Glucose 189 H 03/16/22 05:20: Sodium 132 L, Potassium 3.9, Chloride 102, Carbon Dioxide 15.0 L , Anion Gap 15, BUN 24 H, Creatinine 0.76, Estim Creat Clear Calc 45.85, Est GFR (MDRD) Af Amer 97, Est GFR (MDRD) Non-Af 80, BUN/Creatinine Ratio 31.6 H, Glucose 227 H, Calcium 7.7 L 03/16/22 07:19: POC Glucose 222 H 03/16/22 11:21: POC Glucose 340 H Micro: Microbiology 03/15/22 Unknown Urine, Clean Catch Urine Culture - Preliminary GNR 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 ABG Data ABG results: ABG 03/15/22 15:03 Specimen Type ART Sample Site R Radial pH 7.21 L Bicarbonate Actual 4.2 L Total CO2 < 5 Base Excess -24 L O2 Saturation 99 O2 % 21 ABG pCO2 10.6 L* ABG pO2 134 H Driss Test Positive O2 Delivery Device Room Air Crit Call To/Read Back Yes Physical Exam Const alert, oriented x3 and no apparent distress Constitutional Narrative: Patient appears older than her stated age General Appearance: cooperative, well kempt and well developed Orientation / Consciousness: awake, oriented to person, oriented to place and oriented to time HEENT normocephalic, head/scalp atraumatic and moist oral mucous membranes Eyes PERRL, EOMs intact bilaterally and conjunctivae normal Neck supple, no JVD, thyroid normal and no carotid bruits General: trachea midline Resp normal respiratory effort, no retractions, no use of accessory muscles and clear to auscultation bilaterally Auscultation: Negative for rales, rhonchi or wheezes Cardio regular rate, regular rhythm, S1 normal heart sound, S2 normal heart sound, no murmurs, no rub and no gallops GI normal to inspection, nondistended, normoactive bowel sounds, soft to palpation, non-tender and non-distended Extremity no clubbing, cyanosis or edema Skin no rashes or lesions noted General Skin Exam: no breakdown Neuro oriented x3, CN's II-XII intact bilaterally, no focal motor deficits and no sensory deficits noted Sensorium / Orientation: awake, alert, oriented to person and oriented to place Speech: speech normal Psych Psych Narrative: Patient's affect is flat Assessment & Plan Assessment/Plan (1) Diabetic ketoacidosis: PLAN: Plan 1. Diabetic ketoacidosis-patient is stable for transfer to PCU, she will go b ack on her home insulin regimen and sliding scale insulin. understands he will need to be more proactive with the patient's diabetes care as an outpatient. 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
[2022-03-16 15:35] LABS: Bedside Glucose 393 mg/dL (74-106)
[2022-03-16 16:51] LABS: Bedside Glucose 329 mg/dL (74-106)
[2022-03-16] MEDS: 0.9% Saline Lock 10 ML Syringe IV (21:48)
[2022-03-16] MEDS: Insulin Glargine-YFGN 100 UNIT/ML Pen 40 UNIT SC (21:49)
[2022-03-16 22:15] LABS: Bedside Glucose 170 mg/dL (74-106)
[2022-03-17] VITALS (7 sets, daily range): BP systolic 112–129; BP diastolic 65–69; PULSE 69–78; RESP 16–18; TEMP 35.7–36.8; O2SAT 95–99
[2022-03-17] MEDS: Dextrose 50%-Water 25 GM/50 ML DISP.SYRIN IV (06:40)
[2022-03-17] MEDS: 0.9% Saline Lock 10 ML Syringe IV (06:45)
[2022-03-17 07:25] LABS: Bedside Glucose 119 mg/dL (74-106)
[2022-03-17 07:25] LABS: Bedside Glucose 40 mg/dL (74-106)
[2022-03-17] MEDS: Famotidine 20 MG Tablet PO (11:38)
[2022-03-17] MEDS: Folic Acid 1 MG Tablet 0.5 MG PO (11:38)
[2022-03-17] MEDS: Insulin Lispro 100 UNIT/ML INSULN.PEN SC (11:39)
--- NOTE | 2022-03-17 11:45 | DCINST_ITS ---
Discharge Instructions Diet Discharge Diet: 1800 Calorie Control Diet Activity Discharge Activity: Return to Normal Activity Weight Bearing Status: Full weight bearing Follow Up Care Test Results: Test results from this visit will be discussed in further detail at your follow- up appointment, if applicable. Discharge Plan Admission Admit Date/Time: 03/15/22 16:39 Primary Reason for Your Visit: diabetic Ketoacidosis Attending Provider: Eric De Los Santos Primary Care Provider: Eric Bravo Discharge Orders/Prescriptions Prescriptions: New cephalexin 500 mg capsule 500 mg PO Q8H Qty: 15 0RF Rx Instructions: start on 03/18/22 Continued insulin aspart U-100 [Novolog Flexpen U-100 Insulin] 100 unit/mL (3 mL) insulin pen 12 unit subcut BID Qty: 15 0RF Label Comments: SLIDING SCALE 3-12 UNITS before meals Rx Instructions: Hold if glucose less than 130 mg/dl folic acid 400 mcg Tablet 0.4 mg PO DAILY methotrexate sodium 2.5 mg tablet 12.5 mg PO QWEEK Label Comments: TAKE 5 (FIVE) tablets BY MOUTH per week losartan 25 mg tablet 25 mg PO DAILY levothyroxine 150 MCG tablet 150 mcg PO UD Rx Instructions: TAKE 1 TABLET BY MOUTH 4 TIMES A WEEK magnesium oxide 400 mg magnesium tablet 400 mg PO DAILY Changed Levemir FlexTouch U-100 Insuln 100 unit/mL (3 mL) insulin pen 35 unit subcut DAILY Qty: 15 0RF Rx Instructions: Hold if glucose less than 130 mg/dl Referrals / Follow Up: Eric Bravo DO [Primary Care Provider] - Within 1 Week Disposition Disposition (needs filled in before D/C Order can be placed): Home, Self Care
[2022-03-17 12:30] LABS: Bedside Glucose 186 mg/dL (74-106)
[2022-03-17] MEDS: Ceftriaxone 1 GM/50 ML BAG IV (12:32)
[2022-03-17] MEDS: FLU VACC QS2022-23(6MOS UP)/PF 60 MCG/0.5 ML SYRINGE IM (12:33)
--- NOTE | 2022-03-17 15:48 | NURSING ---
Charting reviewed with Christina Bourgeois RN
--- NOTE | 2022-03-17 18:05 | DS.PCM_ITS ---
Providers Date of Admission: 03/15/22 Date of Discharge: 03/17/22 Primary Care Physician: Dr. Eric Bravo DO Reason For Visit: DKA Diagnosis Discharge Diagnosis (1) Diabetic ketoacidosis: Status: Acute Code(s): E11.10 - Type 2 diabetes mellitus with ketoacidosis without coma Plan 1. Diabetic ketoacidosis-patient is stable for transfer to PCU, she will go back on her home insulin regimen and sliding scale insulin. understands he will need to be more proactive with the patient's diabetes care as an outpatient. 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 #3 paroxysmal atrial fibrillation-patient is currently in atrial fibrillation but it is controlled, I have elected not to place her on any anticoagulants at this time, I will reevaluate her tomorrow #4 poor compliance with medical regimen-either due to cognitive impairment or self-neglect, makes care, management, recovery, and prognosis difficult #5 hypothyroidism-patient will remain on Synthroid #6 rheumatoid arthritis-complicates care, management, recovery, and prognosis, patient is on methotrexate as an outpatient Medications at Discharge Home Medications insulin aspart U-100 100 unit/mL (3 mL) subcutaneous pen (Novolog Flexpen U-100 Insulin aspart) 12 unit (0.12 mL) subcut BID #15 mL 12/01/21 folic acid 400 mcg tablet 0.4 mg PO DAILY SUPPLEMENT 03/15/22 levothyroxine 150 mcg tablet 150 mcg PO UD THYROID 03/15/22 losartan 25 mg tablet 25 mg PO DAILY BLOOD PRESSURE 03/15/22 magnesium oxide 400 mg PO DAILY SUPPLEMENT 03/15/22 methotrexate sodium 2.5 mg tablet 12.5 mg PO QWEEK inflammation 03/15/22 cephalexin 500 mg capsule 500 mg PO Q8H #15 caps 03/17/22 insulin detemir U-100 100 unit/mL (3 mL) subcutaneous pen (Levemir FlexTouch U- 100 Insulin) 35 unit (0.35 mL) subcut DAILY #15 mL 03/17/22 Hospital Course Operations None Procedures None Summary of Care Provided Minutes Spent on Discharge: 32 Hospital Course: This 71-year-old white female was seen in the emergency room at [facility] with complaints of elevated blood sugar, she had been noncompliant with her diabetic treatment at home. Work-up in the emergency room found the patient to have a non-anion gap acidosis, blood sugar was elevated near 800, patient's mentation was poor. Patient was given IV fluids and IV insulin was started, she was admitted to ICU for DKA. Patient was given vigorous IV fluids and an insulin drip, overnight the patient stabilized, I had multiple discussions with the patient's and he states he will become more involved in the patient's care of her diabetes. Hemoglobin A1c was 11.5. On 03/17/2022, patient was seen and examined: On examination she appeared in good health and spirits, she does not appear to be in any distress. Vital signs as documented. Skin warm and dry and without overt rashes. Neck without JVD, thyroid appears normal, trachea is midline, neck is supple. Lungs clear, normal air movement was noted. Heart exam notable for regular rhythm, normal sounds and absence of murmurs, rubs or gallops. Abdomen unremarkable and without evidence of organomegaly, masses, or abdominal aortic enlargement, bowel sounds are present in all 4 quadrants, no abdominal tenderness was noted. Extremities nonedematous, no cyanosis was noted, no clubbing was noted. Neuro: Cranial nerves II through XII are grossly intact, no focal motor deficits were noted, sensation to light touch and pinprick is intact, motor exam 5/5 throughout. Psych: Patient is alert and oriented x3, she does not appear anxious or depressed, she does not appear agitated. Patient appears stable for discharge on 03/17/2022, she was urged to follow-up with her PCP and be referred to an ict developer. Weight / BMI Weight Weight: 55.6 kg Body Mass Index (BMI) 20.3 ABG / Lab / Microbiology Data Result Diagrams: 03/15/22 14:43 03/16/22 05:20 Laboratory: Laboratory Results - last 24 hr 03/16/22 21:47: POC Glucose 170 H 03/17/22 06:34: POC Glucose 40 L* 03/17/22 07:05: POC Glucose 119 H 03/17/22 11:33: POC Glucose 186 H Microbiology: Microbiology 03/15/22 Unknown Urine, Clean Catch Urine Culture - Final Klebsiella pneumoniae sp pneum D/C Instructions Discharge Diet: 1800 Calorie Control Diet Weight Bearing Status: Full weight bearing Meaningful Use Info Meaningful Use Diagnoses (Choose all that apply): None applicable Discharge Plan Admission Admit Date/Time: 03/15/22 16:39 Primary Reason for Your Visit: diabetic Ketoacidosis Attending Provider: Eric De Los Santos Primary Care Provider: Eric Bravo Discharge Orders/Prescriptions Prescriptions: New cephalexin 500 mg capsule 500 mg PO Q8H Qty: 15 0RF Rx Instructions: start on 03/18/22 Continued insulin aspart U-100 [Novolog Flexpen U-100 Insulin] 100 unit/mL (3 mL) insulin pen 12 unit subcut BID Qty: 15 0RF Label Comments: SLIDING SCALE 3-12 UNITS before meals Rx Instructions: Hold if glucose less than 130 mg/dl folic acid 400 mcg Tablet 0.4 mg PO DAILY methotrexate sodium 2.5 mg tablet 12.5 mg PO QWEEK Label Comments: TAKE 5 (FIVE) tablets BY MOUTH per week losartan 25 mg tablet 25 mg PO DAILY levothyroxine 150 MCG tablet 150 mcg PO UD Rx Instructions: TAKE 1 TABLET BY MOUTH 4 TIMES A WEEK magnesium oxide 400 mg magnesium tablet 400 mg PO DAILY Changed Levemir FlexTouch U-100 Insuln 100 unit/mL (3 mL) insulin pen 35 unit subcut DAILY Qty: 15 0RF Rx Instructions: Hold if glucose less than 130 mg/dl Referrals / Follow Up: Eric Bravo DO [Primary Care Provider] - Within 1 Week Disposition Disposition (needs filled in before D/C Order can be placed): Home, Self Care Charges/Coding Visit Charges Inpatient E&M: 61602 Disch Hosp
--- NOTE | 2022-03-19 09:19 | CASEMGMT ---
Late entry for 03/18/2022 at 1030. Received tc from Jessenia at [facility], they will accept pt for SOC on 03/20/2022 and touch base with patient.
== END 2022-03-17 15:44 | disposition home health service (06) | DRG 637 ==
LOC: ED 16:43 → ICU 17:10 → PCU 03-16 15:42
PROVIDERS: Hospitalist; Admitting Provider Internal Medicine; Emergency Provider Emergency Medicine; PCP Family Medicine; Visit Provider Internal Medicine
DX: E11.10 Type 2 diabetes mellitus with ketoacidosis without coma (principal); G93.41 Metabolic encephalopathy; N30.00 Acute cystitis without hematuria; I48.0 Paroxysmal atrial fibrillation; Z79.4 Long term (current) use of insulin; M06.9 Rheumatoid arthritis, unspecified; E03.9 Hypothyroidism, unspecified; M17.12 Unilateral primary osteoarthritis, left knee; Z87.891 Personal history of nicotine dependence; Z79.899 Other long term (current) drug therapy; Z79.890 Hormone replacement therapy; B96.1 Klebsiella pneumoniae [K. pneumoniae] as the cause of diseases classified elsewhere; Z91.199 Patient's noncompliance with other medical treatment and regimen due to unspecified reason; Z23 Encounter for immunization
CPT/HCPCS: 36600; 80048; 80053; 81001; 82009; 82803; 82962; 83036; 84484; 85025; 87040; 87077; 87086; 87088; 87186; 93005; 97802; 99285; G0008; J7030; 90686; A4216; J7799

== ENCOUNTER → 2022-04-08 | Outpatient (CLI) | payer MEDICARE, OTHER, SELFPAY ==
[2022-04-08 11:18] LABS: Bacteria 0 SEEN /hpf (None Seen); Mucous, Urine 0 SEEN /hpf (<or=2+); Red Blood Cells-Urine 0 SEEN /hpf (0-5); Squamous Epithelial Cells - UA 0 SEEN /hpf (5-10); White Blood Cells 0 SEEN /hpf (0-5)
[2022-04-08 11:53] LABS: Color, Urine Yellow (Yellow); Glucose, Dipstick 1000 mg/dl (Normal); Ketone-Dipstick Negative (Negative); Leukocyte Esterase-Dipstick Negative /ul (Negative); Nitrite-Dipstick Negative (Negative); Occult Blood-Urine Negative /ul (Negative); Protein-Dipstick 30 mg/dl (Negative); Specific Gravity, Urine 1.015 (1.002-1.030); Urine Bilirubin Dipstick Negative (Negative); Urine Clarity Clear (Clear); Urine Urobilinogen Normal (Normal)
[2022-04-08 13:42] LABS: Anion Gap 9 (5-15); BUN 13 mg/dL (7-18); BUN/Creat Ratio 21.3 RATIO (10-20); Calcium,Total 9.5 mg/dL (8.5-10.1); Chloride 97 mmol/L (98-107); Creatinine, Serum 0.61 mg/dL (0.55-1.02); EST Glomerular Filtration Rate 103 mL/min (>60); Est Glom Filt Rate - Afr Amer 125 mL/min (>60); Glucose 356 mg/dL (74-106); Potassium 4.2 mmol/L (3.5-5.1); Sodium Level 132 mmol/L (136-145); T4 Free Direct 0.36 ng/dL (0.76-1.46)
== END | disposition home or self-care (01) ==
LOC: LAB 11:10
PROVIDERS: PCP Family Medicine; Referring Provider Internal Medicine Endocrinology, Diabetes & Metabolism; Visit Provider Internal Medicine Endocrinology, Diabetes & Metabolism
DX: E03.9 Hypothyroidism, unspecified (principal); E11.65 Type 2 diabetes mellitus with hyperglycemia; I10 Essential (primary) hypertension; Z79.899 Other long term (current) drug therapy
CPT/HCPCS: 36415; 80048; 81001; 84439; 84443; 87086; 87088

== ENCOUNTER → 2022-05-30 | Outpatient (CLI) | payer MEDICARE, OTHER, SELFPAY ==
--- NOTE | 2022-05-30 09:13 | VDLE_ITS ---
Reason For Study: LEG SWELLING RIGHT LEFT CFV is compressible, spontaneous, phasic, GSV is normal. competent and demonstrates normal CFV is compressible, spontaneous, phasic, augmentation. competent, and demonstrates normal Procedure augmentation. This is a venous duplex using B-mode, color FV is compressible, spontaneous, phasic, flow and spectral Doppler. competent and demonstrates normal Exam performed in department. augmentation. The exam was diagnostic. POP V is compressible, spontaneous, phasic, A preliminary report was called and/or faxed competent and demonstrates normal to Dr. Smalls. augmentation. T/P Trunk is compressible. PTV is compressible. LT PerV is compressible. VL/Venous Duplex US, Unilateral Interpretation Summary Deep veins of the left lower extremity are patent and compressible segmentally. There is no evidence of left lower extremity deep vein thrombosis. Valvular competence appears intac t within the proximal deep venous system on the left . The left great saphenous vein appears patent a nd compressible segmentally. Ordering Physician: Neha Smalls Referring Physician: Neha Smalls Performed By: Lane Tony, RVT
== END | disposition home or self-care (01) ==
PROVIDERS: PCP Family Medicine; Referring Provider Internal Medicine Endocrinology, Diabetes & Metabolism; Visit Provider Internal Medicine Endocrinology, Diabetes & Metabolism
DX: R60.0 Localized edema (principal)
CPT/HCPCS: 93971

== ENCOUNTER → 2022-06-25 | Outpatient (CLI) | payer MEDICARE, OTHER, SELFPAY ==
[2022-06-25 12:34] LABS: Absolute Lymphocyte Count 1.97 X10^3/uL (0.83-4.51); Basophil# 0.11 X10^3/uL; Basophil% 1.3 % (0-1); Eosinophil# 0.15 X10^3/uL; Eosinophils% 1.7 % (0-5); Hematocrit 34.7 % (37-47); Hemoglobin 11.5 g/dL (12.0-15.0); Lymphocyte # 1.97 X10^3/ul (0.83-4.51); Lymphocyte % 22.7 % (19-41); Mean Corp Hgb Conc 33.1 g/dL (32-36); Mean Corpuscular Hgb 27.4 pg (27.0-32.0); Mean Corpuscular Volume 82.8 fL (81-99); Monocyte# 0.41 X10^3/uL; Monocyte% 4.7 % (0-10); NRBC Flagged by Analyzer 0 % (0-5); Platelet Count 336 K/mm3 (150-450); RBC Distribution Width CV 13.4 % (11.6-14.6); RBC Distribution Width SD 40.8 fl (35.1-43.9); Red Blood Count 4.19 M/mm3 (4.2-5.4); White Blood Count 8.7 K/mm3 (4.4-11.0)
[2022-06-25 12:57] LABS: ALB/GLOB Ratio 0.6 RATIO (0.9-2.4); AST(SGOT) 9 U/L (15-37); Alanine Aminotransfer ALT/SGPT 17 U/L (13-56); Albumin, Serum 3.1 g/dL (3.2-5.0); Alkaline Phosphatase 165 U/L (45-117); Anion Gap 11 (5-15); BUN 12 mg/dL (7-18); BUN/Creat Ratio 15.7 RATIO (10-20); Calcium,Total 9.2 mg/dL (8.5-10.1); Chloride 98 mmol/L (98-107); Creatinine, Serum 0.76 mg/dL (0.55-1.02); EST Glomerular Filtration Rate 80 mL/min (>60); Est Glom Filt Rate - Afr Amer 96 mL/min (>60); Globulin 4.9 g/dL (2.2-4.2); Glucose 367 mg/dL (74-106); Sodium Level 134 mmol/L (136-145)
== END | disposition home or self-care (01) ==
LOC: BFHLAB 10:34
PROVIDERS: PCP Family Medicine; Visit Provider Family Medicine
DX: Z51.81 Encounter for therapeutic drug level monitoring (principal)
CPT/HCPCS: 36415; 80053; 85025

== ENCOUNTER → 2022-09-27 | Outpatient (CLI) | payer MEDICARE, OTHER, SELFPAY ==
[2022-09-27 09:59] LABS: Hemoglobin A1c 9.3 % (3.8-5.6)
[2022-09-27 10:00] LABS: ALB/GLOB Ratio 0.7 RATIO (0.9-2.4); AST(SGOT) 13 U/L (15-37); Alanine Aminotransfer ALT/SGPT 20 U/L (13-56); Albumin, Serum 3.3 g/dL (3.2-5.0); Alkaline Phosphatase 119 U/L (45-117); Anion Gap 9 (5-15); BUN 11 mg/dL (7-18); BUN/Creat Ratio 27.4 RATIO (10-20); Calcium,Total 9.5 mg/dL (8.5-10.1); Chloride 97 mmol/L (98-107); Cholesterol 150 mg/dL (200); EST Glomerular Filtration Rate 167 mL/min (>60); Est Glom Filt Rate - Afr Amer 202 mL/min (>60); Globulin 4.6 g/dL (2.2-4.2); Glucose 206 mg/dL (74-106); High Density Lipoprotein 42 mg/dL; Magnesium 1.9 mg/dL (1.6-2.6); Potassium 3.8 mmol/L (3.5-5.1); Protein, Total 7.9 g/dL (6.4-8.2); Sodium Level 131 mmol/L (136-145); T4 Free Direct 1.08 ng/dL (0.76-1.46); Triglycerides 113 mg/dL; Very Low Density Lipoprotein 23 mg/dL (5-40)
[2022-09-27 10:02] LABS: Microalbumin,Random Urine 82.5 mg/L (NO RANGE EST.); Microalbumin:Creatinine Ratio 241.2 mg/g CRE (<30 mg/g CRE)
== END | disposition home or self-care (01) ==
LOC: LAB 09:02
PROVIDERS: PCP Family Medicine; Referring Provider Internal Medicine Endocrinology, Diabetes & Metabolism; Visit Provider Internal Medicine Endocrinology, Diabetes & Metabolism
DX: E03.9 Hypothyroidism, unspecified (principal); E11.9 Type 2 diabetes mellitus without complications; I10 Essential (primary) hypertension; Z79.899 Other long term (current) drug therapy
CPT/HCPCS: 36415; 80053; 80061; 82043; 82570; 83036; 83735; 84439; 84443

== ENCOUNTER 2022-11-14 08:59 | Outpatient (CLI) | payer MEDICARE, OTHER, SELFPAY ==
[2022-11-14 11:22] LABS: T4 Free Direct 1.24 ng/dL (0.76-1.46); Thyroid Stim Hormone (TSH) 7.55 uIU/mL (0.358-3.74)
[2022-11-18 15:07] LABS: Albumin 3.6 g/dL (2.9-4.4); Albumin, Ur 65.5 % (.); Alpha-1-Globulin, Ur 2.9 % (.); Alpha-1-Globulins 0.2 g/dL (0.0-0.4); Alpha-2-Globulins 0.9 g/dL (0.4-1.0); Beta Globulin, Ur 11.5 % (.); Gamma Globulin 1.3 g/dL (0.4-1.8); Gamma Globulin, Ur 12.1 % (.); Immunoglobulin A 352 mg/dL (87-352); Immunoglobulin G 1430 mg/dL (586-1602); Immunoglobulin M 101 mg/dL (26-217); M-Spike, Ur % Not Observed % (Not Observed); Total Protein, Ur 6.4 mg/dL (Not Estab.)
== END 2022-11-14 23:59 | disposition home or self-care (01) ==
LOC: LAB 09:01
PROVIDERS: PCP Family Medicine; Referring Provider Internal Medicine Endocrinology, Diabetes & Metabolism; Visit Provider Internal Medicine Endocrinology, Diabetes & Metabolism
DX: E11.65 Type 2 diabetes mellitus with hyperglycemia (principal); E03.9 Hypothyroidism, unspecified; E04.2 Nontoxic multinodular goiter
CPT/HCPCS: 36415; 82784; 84165; 84166; 84439; 84443; 86334; 86335

== ENCOUNTER → 2022-12-05 | Outpatient (CLI) | payer MEDICARE, OTHER, SELFPAY ==
--- NOTE | 2022-12-05 08:55 | RAD_ITS ---
EXAM: XR LEFT WRIST, 2 VIEWS CLINICAL INDICATION: WRIST PAIN TECHNIQUE: Frontal and lateral views of the left wrist. COMPARISON: 2 views of the right wrist. FINDINGS: BONES/JOINTS: Marked demineralization. Extensive arterial calcifications. Narrowing of the radial carpal joints and carpal and carpal-metacarpal joints. Similar appearance to the right wrist. No acute fracture. No subluxation. Normal alignment. No sclerotic or destructive changes observed. SOFT TISSUES: Unremarkable. No soft tissue swelling or gas. No radiopaque foreign body. RAD/Wrist 2 Views IMPRESSION: Advanced demineralization, arterial calcifications and arthropathy. Electronically Signed: Abena Romero MD at 8:54 EDT ,
--- NOTE | 2022-12-05 08:56 | RAD_ITS ---
EXAM: XR LEFT HAND, 2 VIEWS CLINICAL INDICATION: HAND PAIN TECHNIQUE: Frontal and lateral views of the left hand. COMPARISON: No relevant prior studies available. FINDINGS: BONES/JOINTS: Advanced diffuse demineralization throughout the visualized skeletal structures. Marked disc space narrowing of the IP joints, especially the DIP joints, with periventricular osteophytes. Moderate narrowing of the MCP joints, especially the third and fourth and thumb MCP joints. Narrowing of the carpal-metacarpal junctions and between the carpal bones. No tim bone destruction or fracture. SOFT TISSUES: Mild soft tissue swelling, especially at the second and third PIP joints and the second through fourth DIP joints. No radiopaque foreign body. VASCULATURE: Diffuse arterial calcifications at the ventral wrist and hand. RAD/Hand 2 Views IMPRESSION: Advanced demineralization, arterial calcifications, and extensive arthropathy. Electronically Signed: Abena Romero MD at 8:52 EDT ,
--- NOTE | 2022-12-05 08:56 | RAD_ITS ---
STUDY: XR Wrist 2 Views REASON FOR EXAM: Female, 72 years old. WRIST PAIN TECHNIQUE: XR Wrist 2 Views RIGHT COMPARISON: None FINDINGS: There is demineralization of the radius and ulna. There is degenerative arthrosis of the radiocarpal articulation. Normal distal radioulnar articulation. Normal carpal bones. Normal carpal articulations. There is degenerative arthrosis of the carpometacarpal articulation of the thumb. Normal second through fifth carpometacarpal articulations. There are no acute findings of the visualized metacarpal bones. The soft tissue structures are unremarkable. There are vascular calcifications. RAD/Wrist 2 Views IMPRESSION: There are no acute findings of the wrist. Electronically Signed: Myles Combs MD at 18:10 EDT ,
--- NOTE | 2022-12-05 08:57 | RAD_ITS ---
INDICATION: HAND PAIN EXAMINATION/TECHNIQUE: X-RAY - RIGHT XR Hand 2 Views 2 VIEWS COMPARISON: FINDINGS: SOFT TISSUES: No soft tissue swelling or gas. No radiopaque foreign body. BONES/JOINTS: No acute fracture or subluxation.. Normal alignment. Joint space narrowing and erosions are noted at the second through fifth distal interphalangeal joints. There is joint space narrowing involving the second through fifth proximal interphalangeal joints with possible erosions at the second fourth and fifth proximal interphalangeal joints. There is joint space narrowing noted in the first through fifth metacarpophalangeal joints without focal erosions. RAD/Hand 2 Views IMPRESSION: Joint space narrowing and erosions in multiple joints as described may represent inflammatory arthritis. Electronically Signed: Devin Morales, at 8:20 EDT ,
[2022-12-05 11:19] LABS: Erythrocyte Sedimentation Rate 47 mm/hr (0-30)
[2022-12-05 11:21] LABS: Absolute Lymphocyte Count 1.61 X10^3/uL (0.83-4.51); Absolute Neutrophil Count 7.1 X10^3/uL (2.0-7.7); Basophil# 0.11 X10^3/uL; Basophil% 1.2 % (0-1); Eosinophil# 0.13 X10^3/uL; Eosinophils% 1.4 % (0-5); Hematocrit 39.4 % (37-47); Hemoglobin 12.7 g/dL (12.0-15.0); Lymphocyte # 1.61 X10^3/ul (0.83-4.51); Mean Corp Hgb Conc 32.2 g/dL (32-36); Mean Corpuscular Hgb 27.2 pg (27.0-32.0); Mean Corpuscular Volume 84.4 fL (81-99); Mean Platelet Vol. 10.8 fl (6.2-12.0); Monocyte# 0.44 X10^3/uL; Monocyte% 4.7 % (0-10); NRBC Flagged by Analyzer 0 % (0-5); Neutrophil # 7.12 X10^3/uL (2.7-7.7); Neutrophil % 75.2 % (47-70); Platelet Count 395 K/mm3 (150-450); RBC Distribution Width CV 14.9 % (11.6-14.6); RBC Distribution Width SD 45.4 fl (35.1-43.9); Red Blood Count 4.67 M/mm3 (4.2-5.4); White Blood Count 9.5 K/mm3 (4.4-11.0)
[2022-12-05 11:46] LABS: ALB/GLOB Ratio 0.7 RATIO (0.9-2.4); AST(SGOT) 13 U/L (15-37); Alanine Aminotransfer ALT/SGPT 15 U/L (13-56); Albumin, Serum 3.2 g/dL (3.2-5.0); Alkaline Phosphatase 179 U/L (45-117); Anion Gap 6 (5-15); BUN 12 mg/dL (7-18); BUN/Creat Ratio 28.4 RATIO (10-20); CPK Total, Creatine Kinase 65 U/L (26-192); CRP 7.51 mg/L (0.0-3.0); Chloride 98 mmol/L (98-107); Creatinine, Serum 0.42 mg/dL (0.55-1.02); EST Glomerular Filtration Rate 157 mL/min (>60); Est Glom Filt Rate - Afr Amer 190 mL/min (>60); Globulin 4.6 g/dL (2.2-4.2); Glucose 322 mg/dL (74-106); Potassium 4.3 mmol/L (3.5-5.1); Protein, Total 7.8 g/dL (6.4-8.2); Sodium Level 130 mmol/L (136-145)
[2022-12-05 11:56] LABS: Hepatitis B Surface Antibody Non-Reactive
[2022-12-05 13:12] LABS: Procalcitonin < 0.04 ng/mL (0.00-0.09)
[2022-12-09 11:08] LABS: ANTINUCLEAR ANTIBODIES DIRECT Negative (Negative); Anti-Mitochondrial AB <20.0 Units (0.0-20.0); Vitamin D 1,25-Dihydroxy 31.5 pg/mL (24.8-81.5)
[2022-12-09 14:08] LABS: Albumin 3.7 g/dL (2.9-4.4); Alpha-1-Globulins 0.2 g/dL (0.0-0.4); Alpha-2-Globulins 0.9 g/dL (0.4-1.0); Angiotensin Convert Enzyme 38 U/L (14-82); Anti-Smooth Muscle ABS 8 Units (0-19); CCP IgG Antibodies 11 units (0-19); Cytoplasmic Ab (C-ANCA) <1:20 titer (Neg:<1:20); Gamma Globulin 1.4 g/dL (0.4-1.8); HEPATITIS B SURFACE AG Negative (Negative); Hep C Antibodies Non Reactive (Non Reactive); Hepatitis A AB, Total Negative (Negative); Hepatitis A IgM Antibody Negative (Negative); Hepatitis B Core AB IgM Negative (Negative); Immunoglobulin A 353 mg/dL (87-352); Immunoglobulin G 1493 mg/dL (586-1602); Immunoglobulin M 100 mg/dL (26-217); PROEL- TOTAL PROTEIN 7.3 g/dL (6.0-8.5); Perinuclear Ab (P-ANCA) <1:20 titer (Neg:<1:20); QNTFERON TB Mitogen Value > 10.00 IU/mL (.); QNTFERON TB Nil Value 0 IU/mL (.); QNTFERON TB1+ Ag Value 0 IU/mL (.); QNTFERON TB2+ Ag Value 0 IU/mL (.); QNTIFERON TB Positive Criteria Negative (Negative); t-Transglutaminase IgA <2 U/mL (0-3)
== END | disposition home or self-care (01) ==
PROVIDERS: PCP Family Medicine; Referring Provider Internal Medicine Rheumatology; Visit Provider Internal Medicine Rheumatology
DX: M05.79 Rheumatoid arthritis with rheumatoid factor of multiple sites without organ or systems involvement (principal); E10.65 Type 1 diabetes mellitus with hyperglycemia; R74.8 Abnormal levels of other serum enzymes; R79.82 Elevated C-reactive protein (CRP); R53.83 Other fatigue; R76.8 Other specified abnormal immunological findings in serum; I10 Essential (primary) hypertension; E88.09 Other disorders of plasma-protein metabolism, not elsewhere classified; E87.1 Hypo-osmolality and hyponatremia; E03.9 Hypothyroidism, unspecified; M25.562 Pain in left knee; M25.462 Effusion, left knee; M79.641 Pain in right hand; M79.642 Pain in left hand; M25.531 Pain in right wrist; M25.532 Pain in left wrist; M89.9 Disorder of bone, unspecified; M94.9 Disorder of cartilage, unspecified; M19.041 Primary osteoarthritis, right hand; M19.042 Primary osteoarthritis, left hand; D64.9 Anemia, unspecified; Z79.620 Long term (current) use of immunosuppressive biologic; Z87.39 Personal history of other diseases of the musculoskeletal system and connective tissue; Z79.52 Long term (current) use of systemic steroids; Z79.899 Other long term (current) drug therapy; Z79.631 Long term (current) use of antimetabolite agent
CPT/HCPCS: 36415; 73100; 73120; 80053; 80074; 82164; 82306; 82550; 82652; 82784; 83516; 83735; 84145; 84165; 84443; 84550; 85025; 85652; 86038; 86140; 86200; 86225; 86235; 86256; 86334; 86431; 86480; 86706; 86708

== ENCOUNTER → 2022-12-24 | Outpatient (CLI) | payer MEDICARE, OTHER, SELFPAY ==
--- NOTE | 2022-12-24 10:42 | RAD_ITS ---
INDICATION: Orthopnea- CRACKLES EXAMINATION/TECHNIQUE: X-RAY - XR Chest 2 Views COMPARISON: 11/29/2021 chest radiograph. Findings: Frontal and lateral views of the chest. LUNG PARENCHYMA: No acute focal airspace disease or significant mass lesion. Stable interstitial scarring. Densely calcified right lower lung granulomas. PLEURA: No pleural effusion. No pneumothorax. HEART/GREAT VESSELS: Cardiomediastinal silhouette is unremarkable. BONES: Right shoulder arthroplasty, only partially imaged, although no obvious hardware complication. Multiple thoracolumbar vertebral body compression deformities of uncertain chronicity. RAD/Chest PA and Lateral IMPRESSION: Multiple thoracolumbar vertebral body compression deformities of uncertain chronicity. Chest otherwise with no acute disease. Electronically Signed: Zeus Jj MD at 5:20 EDT ,
== END | disposition home or self-care (01) ==
LOC: MTRAD 10:40
PROVIDERS: PCP Family Medicine; Referring Provider Family Medicine; Visit Provider Family Medicine
DX: R06.01 Orthopnea (principal)
CPT/HCPCS: 71046

== ENCOUNTER 2023-01-10 04:10 | Inpatient (IN) | payer MEDICARE, OTHER, SELFPAY ==
[2023-01-10] VITALS (7 sets, daily range): BP systolic 145–169; BP diastolic 68–88; PULSE 68–84; RESP 16–18; TEMP 36.4–36.9; O2SAT 86–98; BMI 23.0; BMI 20.9
--- NOTE | 2023-01-10 04:17 | RAD_ITS ---
INDICATION: fall/injury EXAMINATION/TECHNIQUE: X-RAY - LEFT XR Knee 1 or 2 Views COMPARISON: None. FINDINGS: 2 views of the left knee. BONES: Normal anatomic alignment without evidence of fracture or subluxation. No concerning bony lesion or abnormal sclerosis to suggest lesion. JOINTS: Severe tricompartment degenerative change. SOFT TISSUES: Dense atherosclerotic vascular calcifications. Moderate knee effusion. RAD/Knee 1 or 2 Views IMPRESSION: Severe degenerative change of the left knee without acute osseous abnormality. Electronically Signed: Zeus Jj MD at 5:14 EDT ,
--- NOTE | 2023-01-10 04:17 | RAD_ITS ---
INDICATION: fall/injury EXAMINATION/TECHNIQUE: X-RAY - LEFT XR Shoulder Min 2 Views COMPARISON: None. FINDINGS: 2 views of left shoulder. Impacted left humeral neck fracture. No other acute osseous abnormality is identified. RAD/Shoulder min 2 Views IMPRESSION: Left humerus fracture. Electronically Signed: Zeus Jj MD at 5:03 EDT ,
--- NOTE | 2023-01-10 04:17 | RAD_ITS ---
INDICATION: fall/injury EXAMINATION/TECHNIQUE: X-RAY - LEFT XR Hip Unilateral with Pelvis when performed; 2-3 Views COMPARISON: Pelvis radiograph 02/06/2017. FINDINGS: Single frontal view of the pelvis. 2 views of the left hip. There appears to be cortical regularity of the left inferior pubic ramus, not seen previously, which may represent fracture. Possible associated medial superior pubic ramus fracture as well. Dense atherosclerotic vascular calcifications. RAD/HIP, UNI W/ Pelvis 2-3 Views IMPRESSION: Possible left pubic rami fractures. This may be better evaluated with dedicated pelvic CT. Electronically Signed: Zeus Jj MD at 5:19 EDT ,
--- NOTE | 2023-01-10 04:19 | EDS_ITS ---
HPI HPI - Fall History of Present Illness Chief Complaint: Fall Informant: patient Occured/Mechanism Occurred: Today Narrative Narrative: Got up in the middle of the night to go to the bathroom, she went without any issue and on the way back using her walker somehow lost her balance and fell. states she collapsed the walker in the process. She fell to the left side injuring her left knee, hip, shoulder. No head injury, no neck or back pain from this, no prodromal symptoms or dizziness. No recent illness. Unable to stand, required EMS to bring her. States she has chronic arthritis in the left knee with swelling, that preexisted before her fall. She has limited range of motion in her left knee which also was similar prior to her fall. [facility] Medical History (Updated 01/10/23 @ 05:[address] Leyda Garcia MD) Chronic anemia Diabetes mellitus, type 2 Former tobacco use HTN (hypertension) Hypothyroidism Rheumatoid arthritis Home Medications insulin aspart U-100 100 unit/mL (3 mL) subcutaneous pen (Novolog FlexPen U-100 Insulin aspart) 12 unit (0.12 mL) subcut BID #15 mL 12/01/21 [Rx Last Taken Unknown] folic acid 400 mcg tablet 0.4 mg PO DAILY SUPPLEMENT 03/15/22 [History Last Taken Unknown] levothyroxine 150 mcg tablet 150 mcg PO UD THYROID 03/15/22 [History Last Taken Unknown] losartan 25 mg tablet 25 mg PO DAILY BLOOD PRESSURE 03/15/22 [History Last Taken Unknown] magnesium oxide 400 mg PO DAILY SUPPLEMENT 03/15/22 [History Last Taken Unknown] methotrexate sodium 2.5 mg tablet 12.5 mg PO QWEEK inflammation 03/15/22 [History Last Taken Unknown] insulin detemir U-100 100 unit/mL (3 mL) subcutaneous pen (Levemir FlexTouch U- 100 Insulin) 35 unit (0.35 mL) subcut DAILY #15 mL 03/17/22 [Rx Last Taken Unknown] Allergy/AdvReac Type Severity Reaction Status Date / Time egg [eggs] AdvReac Vomiting Verified 01/10/23 04:14 Family History Mother Diabetes Heart disease Father Diabetes Cancer Throat cancer Surgical History H/O: s/p right shoulder surgery Social History household members: spouse Smoking Status: Former smoker alcohol intake: never substance use type: does not use ROS ROS ED Constitutional Constitutional ED: Denies chills or fever(s) Eyes Eyes: Denies change in vision or diplopia ENT ENT ED: Denies ear pain, epistaxis, facial pain or rhinorrhea Cardiovascular Cardiovascular: Denies chest pain or palpitations Respiratory/Chest Respiratory/Chest: Denies cough or dyspnea Gastrointestinal Gastrointestinal: Denies abdominal pain, diarrhea, melena, nausea or vomiting Genitourinary Genitourinary ED: Denies dysuria or hematuria Musculoskeletal Musculoskeletal: Reports extremity pain; Denies back pain or neck pain Integumentary Denies abscess, Abrasions, laceration or rash Neurologic Neurologic: Denies confusion, headache(s), paresthesias or weakness EXAM Physical Exam Const Vital Signs: 01/10/23 04:11 Temperature 97.6 F L Temperature Source Temporal Pulse Rate 84 Respiratory Rate 18 Blood Pressure 169/81 H Blood Pressure Mean 110 Pulse Ox 94 Oxygen Delivery Method Room Air Positive well nourished and well developed General Appearance ED: well developed and NAD HEENT Reports nasal mucous membranes and turbinates normal atraumatic Face and Sinus: Negative for facial tenderness Eyes PERRL and EOMs intact bilaterally Visual Acuity: other Other Details: no entrapment or pain with extraocular movements Neck full ROM and supple General: Negative for tenderness Chest Wall inspection of chest normal and palpation of chest normal Chest: symmetrical chest wall rise; Negative for crepitus or tenderness Resp normal respiratory effort and clear to auscultation bilaterally Percussion: other equal BS bilat Cardio no murmurs Rate: regular rate Rhythm: regular rhythm GI normal to inspection, nondistended, normoactive bowel sounds, soft to palpation and non-tender Back/Spine normal ROM Cervical Spine: Negative for cervical spine tenderness Thoracic Spine / Upper Back: Negative for thoracic spinal tenderness Lumbar Spine / Lower Back: Negative for lumbar spinal tenderness Extremity Extremity Narrative: Limited range of motion left shoulder no deformity, but tender in the anterior aspect of the proximal humerus. No acromioclavicular tenderness. Nontender distal throughout the left upper extremity, good supination and pronation without elbow discomfort. Neurovascular intact distally including axillary nerve distribution. Pain in the left hip joint with gentle passive internal and external rotation. Nontender to greater trochanter. No deformity/shortening. Swelling of the left knee, no bony tenderness, limited range of motion which she states is her baseline. Neurovascular intact distally. Normal exam of right upper and lower extremities. General Extremety ED: Yes tenderness Neuro oriented x3, CN's II-XII intact bilaterally, moves all extremities, no focal motor deficits and no sensory deficits noted [place] Coma Scale: document GCS findings Spontaneous Obeys Commands Oriented 15 Sensorium / Orientation: awake and alert Psych mental status grossly normal and thought process normal Skin no wounds Lesions: no lesions Rashes: no rashes MDM MDM MDM Narrative Medical decision making narrative: 2 view x-ray series of the left shoulder on my interpretation shows impacted proximal humerus fracture, it appears to be likely a 1 part nonoperative fracture. She was placed in a sling for that. Three-view x-ray series of the left hip on my interpretation shows what appears to be an inferior pubic ramus fracture, possibly the superior ramus also, but no obvious fracture of the femoral neck or femoral head. Radiology in agreement. 2 view x-ray series of the left knee shows no acute fractures just severe arthritis. The patient was given morphine prior to x-ray. We tried to see if she could bear weight, she cannot bear weight on her left lower extremity due to pain in the groin, and is not able to stand without bearing weight on her left lower extremity because her left shoulder is broken and she is unable to use her walker. Given this, she is agreeable to stay for further evaluation and likely transfer to short-term rehab, discussed with hospitalist and orthopedics. She does have a bit of a leukocytosis here, I suspect this is stress response from her fall given that she has no recent illness, and I did reevaluate whether she had any symptoms of 1 which she does not; no urinary symptoms, no cough, shortness of breath, or GI symptoms recently. History & Record Review Discussion w/independent historian: Patient and Significant other Lab Data Attestation: I reviewed the patient's lab results. Labs: Laboratory Results - last 24 hr 01/10/23 04:50 WBC 17.3 H RBC 3.92 L Hgb 10.8 L Hct 34.0 L MCV 86.7 MCH 27.6 MCHC 31.8 L RDW Std Deviation 49.0 H RDW Coeff of [place] 15.4 H Plt Count 317 MPV 10.6 Immature Gran % (Auto) 0.800 Neut % (Auto) 85.2 H Lymph % (Auto) 8.4 L [place] % (Auto) 4.8 Eos % (Auto) 0.2 Baso % (Auto) 0.6 Absolute Neuts (auto) 14.7 H Absolute Lymphs (auto) 1.46 Nucleated RBC % 0 Sodium 131 L Potassium 4.2 Chloride 100 Carbon Dioxide 22.0 Anion Gap 9 BUN 14 Creatinine 0.56 Estim Creat Clear Calc 45.20 Est GFR (MDRD) Af Amer 137 Est GFR (MDRD) Non-Af 113 BUN/Creatinine Ratio 24.9 H Glucose 288 H Calcium 8.3 L Radiography Diagnostic Testing: Clinical Impression(s) from Imaging Studies Hip/Pelvis X-Ray 01/10/23 04:17 IMPRESSION: Possible left pubic rami fractures. This may be better evaluated with dedicated pelvic CT. Electronically Signed: Zeus Jj MD at 5:19 EDT , Knee X-Ray 01/10/23 04:17 IMPRESSION: Severe degenerative change of the left knee without acute osseous abnormality. Electronically Signed: Zeus Jj MD at 5:14 EDT , Shoulder X-Ray 01/10/23 04:17 IMPRESSION: Left humerus fracture. Electronically Signed: Zeus Jj MD at 5:03 EDT , Management Discussion w/another healthcare provider: Hospitalist and Furniture Installer (Dr. Oh) Discharge Plan Dx/Rx/DC Orders Clinical Impression: Closed fracture of left proximal humerus, Fracture of left inferior pubic ramus, Inability to walk, Accidental fall Disposition Disposition: Acute Care Hospital [facility]
[2023-01-10 04:57] LABS: Absolute Lymphocyte Count 1.46 X10^3/uL (0.83-4.51); Absolute Neutrophil Count 14.7 X10^3/uL (2.0-7.7); Basophil# 0.11 X10^3/uL; Basophil% 0.6 % (0-1); Eosinophil# 0.04 X10^3/uL; Eosinophils% 0.2 % (0-5); Hemoglobin 10.8 g/dL (12.0-15.0); Lymphocyte # 1.46 X10^3/ul (0.83-4.51); Lymphocyte % 8.4 % (19-41); Mean Corp Hgb Conc 31.8 g/dL (32-36); Mean Corpuscular Hgb 27.6 pg (27.0-32.0); Mean Corpuscular Volume 86.7 fL (81-99); Mean Platelet Vol. 10.6 fl (6.2-12.0); Monocyte# 0.83 X10^3/uL; Monocyte% 4.8 % (0-10); NRBC Flagged by Analyzer 0 % (0-5); Neutrophil % 85.2 % (47-70); Platelet Count 317 K/mm3 (150-450); RBC Distribution Width CV 15.4 % (11.6-14.6); Red Blood Count 3.92 M/mm3 (4.2-5.4); White Blood Count 17.3 K/mm3 (4.4-11.0)
[2023-01-10] MEDS: Morphine 2 MG/ML Syringe IV ×2 (05:07→08:20)
[2023-01-10] MEDS: Ondansetron 4 MG/2 ML Vial IV (05:07)
[2023-01-10 05:11] LABS: Anion Gap 9 (5-15); BUN 14 mg/dL (7-18); BUN/Creat Ratio 24.9 RATIO (10-20); Calcium,Total 8.3 mg/dL (8.5-10.1); Chloride 100 mmol/L (98-107); Creatinine, Serum 0.56 mg/dL (0.55-1.02); EST Glomerular Filtration Rate 113 mL/min (>60); Est Glom Filt Rate - Afr Amer 137 mL/min (>60); Glucose 288 mg/dL (74-106); Potassium 4.2 mmol/L (3.5-5.1); Sodium Level 131 mmol/L (136-145)
--- NOTE | 2023-01-10 05:52 | HP.PCM.HOS_ITS ---
HPI - General General Date of Admission: 01/10/23 Date of Service: 01/10/23 Chief Complaint: Fall, intractable pain, debility. HPI Narrative The patient is a 72 y/o F w/ PMHx: Chronic anemia, Rheumatoid arthritis on MTX, Hypothyroidism, HTN, Diabetes mellitus type II, Former tobacco use who presents to the [facility] ED on 01/10/23 with history of getting up in the middle of the night to use the restroom without any issue on the way however on the way back she was using her walker and lost her balance falling collapsing onto the walker in the process landing on her left side with pain immediately to the left knee, left hip and left shoulder with no head injury nor any loss of consciousness however she was unable to stand secondary to pain prompting EMS call. Notes pain without moving in her left upper extremity is approximately 4-5 out of 10 however worsens with any activity attempt. With attempts to ambulate in the ED she noted significant onset of left hip and groin discomfort, severe, 10 out of 10. Patient baseline has issues with her left knee which is why she uses a walker. Work-up in the ED included T97.6, heart rate 84, BP 116/81, respiratory rate 18, 94% on room air, CBC with WC 17.3, hemoglobin 10.8, MCV 86.7, platelet 217 with left shift, BMP with sodium 131, glucose 288 otherwise not marked appearing, plain film of the left shoulder with a left humeral fracture, plain film of the left knee with severe degenerative changes with no acute osseous abnormality, plain film of the left hip and pelvis with possible left pubic rami fracture. In the ED patient ministered Zofran 4 mg IV x1 and morphine 2 mg IV x1. [facility] Medical History (Updated 01/10/23 @ 05:[address] Leyda Garcia MD) Chronic anemia Diabetes mellitus, type 2 Former tobacco use HTN (hypertension) Hypothyroidism Rheumatoid arthritis Home Medications insulin aspart U-100 100 unit/mL (3 mL) subcutaneous pen (Novolog FlexPen U-100 Insulin aspart) 12 unit (0.12 mL) subcut BID #15 mL 12/01/21 [Rx Last Taken Unknown] folic acid 400 mcg tablet 0.4 mg PO DAILY SUPPLEMENT 03/15/22 [History Last Taken Unknown] levothyroxine 150 mcg tablet 150 mcg PO UD THYROID 03/15/22 [History Last Taken Unknown] losartan 25 mg tablet 25 mg PO DAILY BLOOD PRESSURE 03/15/22 [History Last Taken Unknown] magnesium oxide 400 mg PO DAILY SUPPLEMENT 03/15/22 [History Last Taken Unknown] methotrexate sodium 2.5 mg tablet 12.5 mg PO QWEEK inflammation 03/15/22 [ History Last Taken Unknown] insulin detemir U-100 100 unit/mL (3 mL) subcutaneous pen (Levemir FlexTouch U- 100 Insulin) 35 unit (0.35 mL) subcut DAILY #15 mL 03/17/22 [Rx Last Taken Unknown] Allergy/AdvReac Type Severity Reaction Status Date / Time egg [eggs] AdvReac Vomiting Verified 01/10/23 04:14 Family History Mother Diabetes Heart disease Father Diabetes Cancer Throat cancer Surgical History H/O: s/p right shoulder surgery Social History household members: spouse Smoking Status: Former smoker alcohol intake: never substance use type: does not use ROS ROS Narrative Admission Review of Systems: CONSTITUTIONAL: No weight loss, fever, chills, + weakness or fatigue. HEENT: Eyes: No visual loss, blurred vision, double vision or yellow sclerae. Ears, Nose, Throat: No hearing loss, sneezing, congestion, runny nose or sore throat. SKIN: No rash or itching, lesions, wounds. CARDIOVASCULAR: No chest pain, chest pressure or chest discomfort, palpitations, edema, orthopnea, syncopal events. RESPIRATORY: No shortness of breath, cough or sputum, wheezing, hemoptysis. GASTROINTESTINAL: No anorexia, nausea, vomiting or diarrhea, abdominal pain, melena, BRBPR. GENITOURINARY: No dysuria, frequency, urgency or retention. NEUROLOGICAL: No headache, dizziness, syncope, paralysis, ataxia, numbness or t ingling in the extremities, focal weakness, change in bowel or bladder control, seizure. MUSCULOSKELETAL: + muscle, back pain, joint pain or stiffness. HEMATOLOGIC: + anemia. LYMPHATICS: No enlarged nodes. No history of splenectomy. PSYCHIATRIC: No history of depression or anxiety. ENDOCRINOLOGIC: No reports of sweating, cold or heat intolerance. No polyuria or polydipsia. ALLERGIES: No history of asthma, hives, eczema or rhinitis. Vital Signs Vital Signs Vital Signs: 01/10/23 04:11 Temperature 97.6 F L Temperature Source Temporal Pulse Rate 84 Respiratory Rate 18 Blood Pressure 169/81 H Blood Pressure Mean 110 Pulse Ox 94 Oxygen Delivery Method Room Air Weight Weight: 134 lb 0.657 oz Body Mass Index (BMI) 23.0 Physical Exam Narrative Physical Examination: General: Awake, alert, oriented x 3 and cooperative, seated upright in the ED bed in no apparent distress, reports mild discomfort to the left upper extremity. Skin: Normal color, normal turgor, no icterus, no cyanosis except for occasional staged ecchymoses. HEENT: AT/NC, EOMI, PERRLA, moderately dry MM, no carotid bruits or JVD noted. Lungs: Mildly diminished, greater bases, appropriate effort, no rales, ronchi or wheezing. Heart: Regular rate and rhythm; no gallop, rub audible. Abdomen: Soft, NTTP, ND, normal BS, no HSM. Extremities: No cyanosis, no clubbing, mild bilateral ankle not markedly pitting edema, status post mechanical fall with left upper extremity in sling with humeral fracture. Neurological: Patient awake, alert, oriented as noted, cognitive function intact; pupils equally reactive to light and accommodation, cranial nerves grossly normal, moving all 4 extremities except extremely limited secondary to left upper extremity in sling with a humeral fracture and left lower extremity with possible pubic rami fracture awaiting CT scan, no focal deficits, strength severely globally decreased secondary to acute presentation Psychiatric: Affect appears fatigued, mildly uncomfortable appearing, no acute evidence of depressive or anxiety feelings. Results Lab / Micro Data 01/10/23 04:50 01/10/23 04:50 Labs: Laboratory Results - last 24 hr 01/10/23 04:50: WBC 17.3 H, RBC 3.92 L, Hgb 10.8 L, Hct 34.0 L, MCV 86.7, MCH 27.6, MCHC 31.8 L, RDW Std Deviation 49.0 H, RDW Coeff of Mate[place] 15.4 H, Plt Count 317, MPV 10.6, Immature Gran % (Auto) 0.800, Neut % (Auto) 85.2 H, Lymph % (Auto) 8.4 L, [place] % (Auto) 4.8, Eos % (Auto) 0.2, Baso % (Auto) 0.6, Absolute Neuts (auto) 14.7 H, Absolute Lymphs (auto) 1.46, Nucleated RBC % 0, Sodium 131 L, Potassium 4.2, Chloride 100, Carbon Dioxide 22.0, Anion Gap 9, BUN 14, Creatinine 0.56, Estim Creat Clear Calc 45.20, Est GFR (MDRD) Af Amer 137, Est GFR (MDRD) Non-Af 113, BUN/Creatinine Ratio 24.9 H, Glucose 288 H, Calcium 8.3 L Radiology Impression Hip/Pelvis X-Ray 01/10/23 04:17 IMPRESSION: Possible left pubic rami fractures. This may be better evaluated with dedicated pelvic CT. Electronically Signed: Zeus Jj MD at 5:19 EDT , Knee X-Ray 01/10/23 04:17 IMPRESSION: Severe degenerative change of the left knee without acute osseous abnormality. Electronically Signed: Zeus Jj MD at 5:14 EDT , Shoulder X-Ray 01/10/23 04:17 IMPRESSION: Left humerus fracture. Electronically Signed: Zeus Jj MD at 5:03 EDT , Assessment & Plan Assessment/Plan (1) Closed fracture of left proximal humerus: (2) Accidental fall: PLAN: Plan The patient is a 72 y/o F w/ PMHx: Chronic anemia, Rheumatoid arthritis on MTX, Hypothyroidism, HTN, Diabetes mellitus type II, Former tobacco use who presents to the [facility] ED on 01/10/23 with history of getting up in the middle of the night to use the restroom without any issue on the way however on the way back she was using her walker and lost her balance falling collapsing onto the walker in the process landing on her left side with pain immediately to the left knee, left hip and left shoulder with no head injury nor any loss of consciousness however she was unable to stand secondary to pain prompting EMS call. #1. Mechanical fall with left humeral fracture as well as possible left pubic rami fracture or possible femoral fracture: We will admit to medical surgical floor, maintain on fall precautions, maintain left upper extremity in a sling with nonweightbearing status, given unclear left pubic rami fracture will pursue CT of the pelvic to assure no other acute finding, will maintain nonweightbearing status to the lower extremities until this is ascertained however if it is only a pubic rami fracture would be weightbearing as tolerated, will have as needed pain medication in addition to as needed antiemetic medication. PT/OT/case management consultation for discharge planning. We will continue orthopedic surgery consultation initiated per ED with Dr. Oh. #2. Leukocytosis, unclear specific etiology: Admission CBC with WBC 17.3 with left shift, will obtain urinalysis/urine culture as well as chest x-ray in addition to procalcitonin, continue judicious hydration with repeat CBC in the morning. #3. Diabetes mellitus type II: Hold oral home regimen, ADA diet, accu checks w/ ISS. #4. Chronic normocytic anemia: Admission hemoglobin 10.8, baseline appears to be vacillating between 10 and 13, most recently 12/05/2022 hemoglobin 12.7 however prior to this was 11.5, will continue to trend. #5. Hypertension: Continue home regimen including losartan, PRN hydralazine. #6. Hypothyroidism: We will continue patient on levothyroxine regimen. #7. Former tobacco usage: Encourage continued tobacco cessation. #8. Rheumatoid arthritis: Patient is on weekly methotrexate with folic acid supplementation, will continue folic acid supplementation. #9. DVT prophylaxis: Lovenox. Charges/Coding Visit Charges Inpatient E&M: 51987 Init Hosp L3
--- NOTE | 2023-01-10 06:06 | CT_ITS ---
INDICATION: pelivc sandy fx? EXAMINATION/TECHNIQUE: X-RAY - CT Pelvis W/O Contrast Injection COMPARISON: Pelvis and hip radiographs earlier same day. FINDINGS: Serial CT axial images through the pelvis and bilateral hips with coronal and sagittal reformatted series. Comminuted angulated fractures of the left inferior pubic ramus (best appreciated on axial images) and superior pubic ramus (best appreciated on coronal image series). Dense atherosclerotic vascular calcifications. Lower lumbar vertebral body compression deformities of uncertain chronicity. Moderate amount of stool within distended rectosigmoid raising concern for impaction. CT/Pelvis without IV Contrast IMPRESSION: Acute left superior and inferior pubic rami fractures. Lower lumbar vertebral body compression deformities of uncertain chronicity. Moderate amount of stool within distended rectosigmoid raising concern for impaction. Electronically Signed: Zeus Jj MD at 7:13 EDT ,
--- NOTE | 2023-01-10 06:08 | RAD_ITS ---
INDICATION: leukoctosis COMPARISON: 12/24/2022 chest radiograph. Findings: Single frontal view of the chest. Low lung volumes. LUNG PARENCHYMA: New bibasilar interstitial thickening, somewhat confluent. PLEURA: No pleural effusion. No pneumothorax. HEART/[place]: Cardiomediastinal silhouette is not enlarged. Prominence of the central vasculature suggesting venous congestion. BONES: Right shoulder arthroplasty without obvious hardware complication. RAD/Chest 1 View (Portable) IMPRESSION: Low lung volumes with new bibasilar interstitial process, somewhat confluent, suggesting pulmonary edema given venous congestion. Infectious etiology is not excluded. Electronically Signed: Zeus Jj MD at 7:17 EDT ,
[2023-01-10 07:35] LABS: Procalcitonin 0.04 ng/mL (0.00-0.09)
[2023-01-10] MEDS: 0.9% Saline Lock 10 ML Syringe IV ×2 (08:17→22:04)
[2023-01-10] MEDS: 0.9% Normal Saline 1,000 ML 100 ML IV (08:17)
[2023-01-10] MEDS: Insulin Lispro 100 UNIT/ML INSULN.PEN SC ×5 (08:46→21:53)
--- NOTE | 2023-01-10 08:46 | CONS.ORTHO ---
HPI Consult Data Date of Consult: 01/10/23 HPI Narrative HPI Narrative: DURAN DEVI, is a 72 F who presents with a fall, L proximal humerus fracture and publc rami fracture. Admitted for rehab under hospitalist. Patient had a trip and fall while at home. Fell on an outstretched hand. The patient is right-hand dominant. There is seen in hospital third floor. They are wearing a sling on the left upper extremity. I got called this morning at around 6:30 in the morning by the ED physician. Saw the patient at about 930 this morning. [facility] Medical History (Updated 01/10/23 @ 05:[address] Leyda Garcia MD) Chronic anemia Diabetes mellitus, type 2 Former tobacco use HTN (hypertension) Hypothyroidism Rheumatoid arthritis Home Medications insulin aspart U-100 100 unit/mL (3 mL) subcutaneous pen (Novolog FlexPen U-100 Insulin aspart) 12 unit (0.12 mL) subcut BID #15 mL 12/01/21 [Rx Last Taken Unknown] folic acid 400 mcg tablet 0.4 mg PO DAILY SUPPLEMENT 03/15/22 [History Last Taken Unknown] levothyroxine 150 mcg tablet 150 mcg PO DAILY THYROID 03/15/22 [History Last Taken Unknown] losartan 25 mg tablet 25 mg PO DAILY BLOOD PRESSURE 03/15/22 [History Last Taken Unknown] magnesium oxide 400 mg PO DAILY SUPPLEMENT 03/15/22 [History Last Taken Unknown] methotrexate sodium 2.5 mg tablet 12.5 mg PO QWEEK inflammation 03/15/22 [History Last Taken Unknown] insulin detemir U-100 100 unit/mL (3 mL) subcutaneous pen 35 unit subcut DAILY dm 01/10/23 [History Last Taken Unknown] prednisone 5 mg tablet 5 mg PO DAILY arthritis 01/10/23 [History Last Taken Unknown] sertraline 25 mg tablet 25 mg PO DAILY depression 01/10/23 [History Last Taken Unknown] Allergy/AdvReac Type Severity Reaction Status Date / Time egg [eggs] AdvReac Vomiting Verified 01/10/23 04:14 Family History Mother Diabetes Heart disease Father Diabetes Cancer Throat cancer Surgical History H/O: s/p right shoulder surgery Social History household members: spouse Smoking Status: Former smoker alcohol intake: never substance use type: does not use Vital Signs Vital Signs Vital Signs: 01/10/23 04:11 01/10/23 07:10 01/10/23 08:12 Temperature 97.6 F L 98.4 F 98 F Temperature Source Temporal Temporal Oral Pulse Rate 84 71 68 Respiratory Rate 18 18 18 Blood Pressure 169/81 H 145/88 H 165/75 H Blood Pressure Mean 110 107 105 Blood Pressure Source Monitor Blood Pressure Position Supine Blood Pressure Location Right Arm Pulse Ox 94 93 96 Oxygen Delivery Method Room Air Room Air Room Air Weight Weight: 122 lb 3.2 oz Body Mass Index (BMI) 20.9 Physical Exam Const alert, oriented x3, no apparent distress and well nourished HEENT normocephalic Eyes EOMs intact bilaterally Resp Effort and Inspection: able to speak in complete sentences Extremity normal capillary refill and no clubbing, cyanosis or edema Extremity Narrative: Left upper extremity closed injury. Mild swelling. No ecchymosis. Normal sensation motor function axillary nerve. No pain at the clavicle elbow hand or wrist. No pain to the hips with logrolling testing or direct palpation. Closed injury again to the pelvis. There is some mild pain to deep palpation along the anterior left pelvic brim. Normal sensation motor function of the foot the foot is warm and well-perfused good pedal pulses normal sensation in the dorsum and plantar aspect of the foot. Lab / Micro Data 01/10/23 04:50 01/10/23 04:50 Labs: Laboratory Results - last 24 hr 01/10/23 04:50: WBC 17.3 H, RBC 3.92 L, Hgb 10.8 L, Hct 34.0 L, MCV 86.7, MCH 27.6, MCHC 31.8 L, RDW Std Deviation 49.0 H, RDW Coeff of Mateus 15.4 H, Plt Count 317, MPV 10.6, Immature Gran % (Auto) 0.800, Neut % (Auto) 85.2 H, Lymph % (Auto) 8.4 L, Ell[place] % (Auto) 4.8, Eos % (Auto) 0.2, Baso % (Auto) 0.6, Absolute Neuts (auto) 14.7 H, Absolute Lymphs (auto) 1.46, Nucleated RBC % 0, Sodium 131 L, Potassium 4.2, Chloride 100, Carbon Dioxide 22.0, Anion Gap 9, BUN 14, Creatinine 0.56, Estim Creat Clear Calc 45.20, Est GFR (MDRD) Af Amer 137, Est GFR (MDRD) Non-Af 113, BUN/Creatinine Ratio 24.9 H, Glucose 288 H, Calcium 8.3 L 01/10/23 06:06: Procalcitonin 0.04 Radiology Impression Hip/Pelvis X-Ray 01/10/23 04:17 IMPRESSION: Possible left pubic rami fractures. This may be better evaluated with dedicated pelvic CT. Electronically Signed: Zeus Jj MD at 5:19 EDT , Knee X-Ray 01/10/23 04:17 IMPRESSION: Severe degenerative change of the left knee without acute osseous abnormality. Electronically Signed: Zeus Jj MD at 5:14 EDT , Shoulder X-Ray 01/10/23 04:17 IMPRESSION: Left humerus fracture. Electronically Signed: Zeus Jj MD at 5:03 EDT , Pelvis CT 01/10/23 06:06 IMPRESSION: Acute left superior and inferior pubic rami fractures. Lower lumbar vertebral body compression deformities of uncertain chronicity. Moderate amount of stool within distended rectosigmoid raising concern for impaction. Electronically Signed: Zeus Jj MD at 7:13 EDT , Chest X-Ray 01/10/23 06:08 IMPRESSION: Low lung volumes with new bibasilar interstitial process, somewhat confluent, suggesting pulmonary edema given venous congestion. Infectious etiology is not excluded. Electronically Signed: Zeus Jj MD at 7:17 EDT , Agree w rad assessment. Assessment & Plan Assessment/Plan (1) Closed fracture of left proximal humerus: PLAN: 72 F L proximal humerus fracture and L pubic rami fracture. Stable pelvic injury LC 1 recommend WBAT with walker PRN. For L proximal humerus, reasonable alignment and concomitant injuries so would recommend non op mgt, although RTSA vs ORIF options here as well. FU 1 week post discharge in clinic, will not follow while in hospital but please call w concerns. Patient can start to take the sling off 3-4 times a day pendulum exercises gently no active range of motion of the shoulder but can do full range of motion of the hand wrist and elbow as tolerated. Explained the different treatment options the patient and she is satisfied with nonoperative management and will follow-up in 1 week's time. Ta cpt closed tx L rami fracture and CPT closed tx L proximal humerus (2) Fracture of left inferior pubic ramus:
[2023-01-10 09:06] LABS: Bedside Glucose 235 mg/dL (74-106)
[2023-01-10] MEDS: Enoxaparin 40 MG/0.4 ML Syringe SC (09:34)
[2023-01-10] MEDS: Magnesium Chloride 64 MG Delay Rel.Tablet 128 MG PO (09:35)
[2023-01-10] MEDS: Folic Acid 1 MG Tablet 0.5 MG PO (09:35)
[2023-01-10] MEDS: Losartan Potassium 25 MG Tablet PO (09:35)
--- NOTE | 2023-01-10 10:12 | CASEMGMT ---
MARILYN HECK Assessment: Face to Face with pt for initial transition planning/care coordination assessment. MARILYN HECK introduced self and role at [facility], pt voices understanding and consents to assessment. Pt is A/O x4 and answers all questions appropriately at this time. Pt sitting up in chair with at bedside. Care providers, pharmacy, and demographics verified/updated. Admitting Dx: fall, humeral fx, possible hip fx PCP:Lawrence Specialists:zack Savage; franck Bustamante Preferred Pharmacy: [facility] Insurance: [employer] Prescription Benefit: yes LNOK: Mir Little, ; Vinh Little, son; Mateo Little, son Living Arrangements: Pt lives with in a two story home with first floor set up with no steps to enter. Pt reports she is I in ADL's and denies concerns at home. Transportation: Pt transports pt to medical appts as pt has not driven in over a year. DME/HHC/SNF: Pt has a FWW, shower seat and CHC. Pt has had [facility] HHC in the past and denies SNF stays. Pt states no concerns with going home at time of dc. Discussed therapy evals today and pt required assistance of 2. Pt just dc'd one week ago from [facility]. Pt states her sister from [place] may be able to help her. Pt and continued to talk and pt then states maybe she should get further therapy prior to returning home. Pt agrees. They are aware that SW will be in to speak with them regarding options. Pt states no further concerns/needs. CM to follow. Advised pt to ask CM if any further question/concerns/needs arise, voices understanding. Pt Goal: SNF Plan: SNF
--- NOTE | 2023-01-10 11:11 | PN_ITS ---
Subjective Subjective Patient seen and examined. Pain is well controlled, especially when she doesnt move around. She presented to the hospital after she fell whilst going to the bathroom. On admission, she was found to have a left proximal humeral fracture and pubic rami fracture. She has remained hemodynamically stable. Objective Data Objective Data Vital Signs: Vital Signs Temp Pulse Resp BP Pulse Ox O2 Del Method 98 F 68 18 165/75 H 96 Room Air 01/10/23 08:12 01/10/23 08:12 01/10/23 08:12 01/10/23 08:12 01/10/23 08:12 01/10/23 09:54 Oxygen Delivery Method Room Air Weight: 122 lb 3.2 oz Body Mass Index (BMI) 20.9 Lab / Micro Data 01/10/23 04:50 01/10/23 04:50 Labs: Laboratory Results - last 24 hr 01/10/23 04:50: WBC 17.3 H, RBC 3.92 L, Hgb 10.8 L, Hct 34.0 L, MCV 86.7, MCH 27.6, MCHC 31.8 L, RDW Std Deviation 49.0 H, RDW Coeff of Mateus 15.4 H, Plt Count 317, MPV 10.6, Immature Gran % (Auto) 0.800, Neut % (Auto) 85.2 H, Lymph % (Au to) 8.4 L, Bowman % (Auto) 4.8, Eos % (Auto) 0.2, Baso % (Auto) 0.6, Absolute N euts (auto) 14.7 H, Absolute Lymphs (auto) 1.46, Nucleated RBC % 0, Sodium 131 L , Potassium 4.2, Chloride 100, Carbon Dioxide 22.0, Anion Gap 9, BUN 14, Creatinine 0.56, Estim Creat Clear Calc 45.20, Est GFR (MDRD) Af Amer 137, Est GFR (MDRD) Non-Af 113, BUN/Creatinine Ratio 24.9 H, Glucose 288 H, Calcium 8.3 L 01/10/23 06:06: Procalcitonin 0.04 01/10/23 08:39: POC Glucose 235 H Radiography Diagnostic Testing: Radiology Impression Hip/Pelvis X-Ray 01/10/23 04:17 IMPRESSION: Possible left pubic rami fractures. This may be better evaluated with dedicated pelvic CT. Electronically Signed: Zeus Jj MD at 5:19 EDT , Knee X-Ray 01/10/23 04:17 IMPRESSION: Severe degenerative change of the left knee without acute osseous abnormality. Electronically Signed: Zeus Jj MD at 5:14 EDT , Shoulder X-Ray 01/10/23 04:17 IMPRESSION: Left humerus fracture. Electronically Signed: Zeus Jj MD at 5:03 EDT , Pelvis CT 01/10/23 06:06 IMPRESSION: Acute left superior and inferior pubic rami fractures. Lower lumbar vertebral body compression deformities of uncertain chronicity. Moderate amount of stool within distended rectosigmoid raising concern for impaction. Electronically Signed: Zeus Jj MD at 7:13 EDT , Chest X-Ray 01/10/23 06:08 IMPRESSION: Low lung volumes with new bibasilar interstitial process, somewhat confluent, suggesting pulmonary edema given venous congestion. Infectious etiology is not excluded. Electronically Signed: Zeus Jj MD at 7:17 EDT , Physical Exam Const alert, oriented x3 and no apparent distress General Appearance: cooperative HEENT normocephalic, head/scalp atraumatic and moist oral mucous membranes Eyes PERRL and EOMs intact bilaterally Neck no lymphadenopathy and supple Lymph Lymphatic: no lymphadenopathy noted and no lymphedema noted Resp normal respiratory effort, normal air movement and clear to auscultation bilat erally Cardio regular rate, regular rhythm, S1 normal heart sound, S2 normal heart sound and no murmurs GI normal to inspection, nondistended, normoactive bowel sounds, soft to palpation, non-tender and non-distended Extremity normal capillary refill and no clubbing, cyanosis or edema Extremity Narrative: LUE in sling. Skin General Skin Exam: no breakdown Neuro CN's II-XII intact bilaterally, no focal motor deficits and no sensory deficits noted Psych thought process normal and cooperative Appearance: appropriate Assessment & Plan Assessment/Plan (1) Closed fracture of left proximal humerus: (2) Fracture of left inferior pubic ramus: PLAN: Plan #LEft proximal closed humeral fracture * due to mechanical fall * LUE in sling * PT/OT On board * orthopedics consulted; recommend conservative management for now, though RTSA and ORIF optionas are also available. To follow up with orthopedic surgery on outpatient basis. * oral and IV pain meds- tylenol and IV morphine prn as well as oxycodone prn * fall precautions * #left pubic rami fracture * due to mechanical fall * PT/OT on board. * orthopedic surgery on board. Management is conservative * fall precautions * #Rheumatoid arthritis: on methotrexate and folic acid supplementation #Hypothyroidism;on synthroid #Hypertension:not on any oral meds. IV hydralazine prn #Hyperlipidemia: on ISS. Accuchecks ACHS. DVT prophylaxis; lovenox Disposition: will need rehab. PT.OT on board Charges/Coding Visit Charges Inpatient E&M: 52133 Subs Hosp L2
[2023-01-10] MEDS: Levothyroxine 150 MCG Tablet PO (11:27)
[2023-01-10 11:46] LABS: Bedside Glucose 462 mg/dL (74-106)
--- NOTE | 2023-01-10 12:16 | CASEMGMT ---
Addendum entered by Bonita Knight 01/10/23 13:42: Social Work TCU is able to accept pt. SW updated pt who will notify her spouse. Pt can be admitted to TCU on Friday. PANFILO Najera Original Note: Social Work SW received referral for SNF placement. SW met with pt and introduced self and role of SW. Discussed discharge options and A list of SNF providers including quality and resource use data and consistent with the patient?s preferred geographic region, medical needs, and insurance network were provided from the [employer] Guide. Pt's preferred provider is [facility]. Referral made to Richa in TCU. Pt states her spouse will be back in later and she will update on choice then. Plan: TCU, pending acceptance PANFILO Najera
[2023-01-10 12:52] LABS: Bedside Glucose 462 mg/dL (74-106)
--- NOTE | 2023-01-10 16:34 | CHAPLAIN ---
Type of Pastoral Visit _x__ Initial Visit ___ Follow-up Visit ___ On-call Visit ___ General Patient Visit ___ Spiritual Assessment ___ Family Conference ___ Bereavement ___ Rapid Response ___ Code Blue ___ Other (describe below) Pastoral Care Referral From _x__ Patient ___ Family ___ Nurse ___ Physician ___ Nail Puller ___ Director Of Emergency Nursing ___ Other (describe below) Sacrament/Intervention _x__ Active listening ___ Anointing ___ Hindu ___ Bereavement ___ Communion _x__ Natacha exploration ___ ___ Life review _x__ Prayer ___ Reconciliation ___ Sacrament of Sick _x__ Supportive presence ___ Wedding ___ Other (describe below) Pastoral Comments patient repeatedly speaks of this situation as one giving her frustration; pt talks of this interrupting her life, and that her has his own physical needs now, and that she is resistant but acknowledges that a skilled facility is going to happen; time given to acknowledge her concern and frustrations and explore positive ways of coping in this situation; prayer and presence welcomed
[2023-01-10 16:41] LABS: Bedside Glucose 272 mg/dL (74-106)
[2023-01-10] MEDS: oxyCODONE 5 MG Tablet PO ×2 (16:52→22:02)
[2023-01-10 19:26] LABS: Mucous, Urine 0 SEEN /hpf (<or=2+); Red Blood Cells-Urine 0 SEEN /hpf (0-5)
[2023-01-10 20:53] LABS: Color, Urine Yellow (Yellow); Glucose, Dipstick 1000 mg/dl (Normal); Ketone-Dipstick 5 mg/dl (Negative); Leukocyte Esterase-Dipstick 500 /ul (Negative); Nitrite-Dipstick Negative (Negative); Occult Blood-Urine Negative /ul (Negative); Protein-Dipstick 15 mg/dl (Negative); Specific Gravity, Urine 1.015 (1.002-1.030); Urine Bilirubin Dipstick Negative (Negative); Urine Clarity Clear (Clear); Urine Urobilinogen Normal (Normal)
[2023-01-10 21:03] LABS: Bacteria RARE /hpf (None Seen); Squamous Epithelial Cells - UA 0-5 SEEN /hpf (5-10); White Blood Cells 10-25 SEEN /hpf (0-5)
[2023-01-10] MEDS: Acetaminophen 325 MG Tablet 650 MG PO (22:02)
[2023-01-10] MEDS: hydrALAZINE 20 MG/ML Vial 10 MG IV (22:03)
[2023-01-10 22:57] LABS: Bedside Glucose 386 mg/dL (74-106)
[2023-01-11 03:57] VITALS: BP 153/73; PULSE 74; RESP 16; TEMP 36.1; O2SAT 95
[2023-01-11] MEDS: Senna/Docusate Sodium 1 Tablet 2 TABLET PO (04:05)
[2023-01-11] MEDS: Acetaminophen 325 MG Tablet 650 MG PO (04:06)
[2023-01-11] MEDS: oxyCODONE 5 MG Tablet PO (04:06)
[2023-01-11] MEDS: Levothyroxine 150 MCG Tablet PO (04:06)
--- NOTE | 2023-01-11 05:15 | RAD_ITS ---
INDICATION: Leukocytosis EXAMINATION/TECHNIQUE: X-RAY - XR Chest 1 View COMPARISON: Prior studies dated: December 24 and 2022 FINDINGS: LINES/DEVICES: None. LUNGS: Within the right upper/mid lung there is a 1.5 cm nodular opacity. There are stable prominent interstitial markings. There is a stable hazy opacity within the right midlung. There are stable left basilar curvilinear opacities which may be secondary to atelectasis and/or scarring. MEDIASTINUM AND CARDIOVASCULAR STRUCTURES: Cardiac silhouette not enlarged. Central airways and mediastinal contour are unremarkable. BONES AND SOFT TISSUES: There is a stable right shoulder arthroplasty. There is a stable left proximal humeral deformity consistent with a fracture. RAD/Chest 1 View (Portable) IMPRESSION: Stable prominent interstitial markings, a nonspecific finding may be secondary to edema and/or an infectious process. Stable hazy opacity within the right midlung may reflect atelectasis and/or pneumonia. Indeterminate 1.5 cm nodular opacity within the right upper/midlung may be secondary to confluence of shadows however cannot exclude a pulmonary nodule, recommend PA and lateral images for further characterization. Left basilar atelectasis and/or scarring. Electronically Signed: Shanthi Umana MD at 10:39 EDT ,
[2023-01-11 05:20] VITALS: BMI 20.9
[2023-01-11] MEDS: Insulin Lispro 100 UNIT/ML INSULN.PEN SC ×4 (06:37→22:17)
[2023-01-11 06:58] LABS: Basophil# 0.14 X10^3/uL; Basophil% 1.1 % (0-1); Eosinophil# 0.24 X10^3/uL; Eosinophils% 1.9 % (0-5); Hemoglobin 10.8 g/dL (12.0-15.0); Lymphocyte % 11.1 % (19-41); Mean Corp Hgb Conc 31.8 g/dL (32-36); Mean Corpuscular Hgb 27.6 pg (27.0-32.0); Mean Corpuscular Volume 86.7 fL (81-99); Mean Platelet Vol. 11.3 fl (6.2-12.0); Monocyte# 0.76 X10^3/uL; NRBC Flagged by Analyzer 0 % (0-5); Neutrophil # 9.95 X10^3/uL (2.7-7.7); Neutrophil % 79.3 % (47-70); Platelet Count 278 K/mm3 (150-450); RBC Distribution Width CV 15.6 % (11.6-14.6); RBC Distribution Width SD 49.1 fl (35.1-43.9); Red Blood Count 3.92 M/mm3 (4.2-5.4); White Blood Count 12.6 K/mm3 (4.4-11.0)
[2023-01-11 07:40] LABS: ALB/GLOB Ratio 0.7 RATIO (0.9-2.4); AST(SGOT) 9 U/L (15-37); Alanine Aminotransfer ALT/SGPT 18 U/L (13-56); Albumin, Serum 2.7 g/dL (3.2-5.0); Alkaline Phosphatase 187 U/L (45-117); Anion Gap 7 (5-15); BUN 12 mg/dL (7-18); BUN/Creat Ratio 29.5 RATIO (10-20); Calcium,Total 8.5 mg/dL (8.5-10.1); Chloride 95 mmol/L (98-107); Creatinine, Serum 0.41 mg/dL (0.55-1.02); EST Glomerular Filtration Rate 164 mL/min (>60); Est Glom Filt Rate - Afr Amer 199 mL/min (>60); Glucose 330 mg/dL (74-106); Potassium 4.2 mmol/L (3.5-5.1); Protein, Total 6.7 g/dL (6.4-8.2); Sodium Level 126 mmol/L (136-145)
[2023-01-11 08:17] VITALS: O2SAT 95
[2023-01-11 10:00] VITALS: BP 132/69; PULSE 78; RESP 18; TEMP 36.9; O2SAT 92
[2023-01-11 11:27] LABS: Bedside Glucose 330 mg/dL (74-106)
--- NOTE | 2023-01-11 11:33 | PN_ITS ---
Subjective Subjective Patient seen and examined. Pain was fairly well controlled. She had no complaints and had an uneventful night. Review of systems otherwise negative. She has remained hemodynamically stable. She is awaiting placement. Objective Data Objective Data Vital Signs: Vital Signs Temp Pulse Resp BP Pulse Ox O2 Del Method O2 Flow Rate 98.4 F 78 18 132/69 H 92 Nasal Cannula 2 01/11/23 10:00 01/11/23 10:00 01/11/23 10:00 01/11/23 10:00 01/11/23 10:00 01/11/23 10:00 01/11/23 10:00 Oxygen Flow Rate (L/min) 2 Oxygen Delivery Method Nasal Cannula Weight: 122 lb 5.705 oz Body Mass Index (BMI) 20.9 Intake & Output: Intake and Output for Last 24 Hours 01/09/23 01/10/23 01/11/23 23:59 23:59 23:59 Intake Total 1566.67 / 1566.67 Output Total 1200 / 1200 450 / 450 Balance 366.67 / 366.67 -450 / -450 Lab / Micro Data 01/11/23 05:55 01/11/23 05:55 Labs: Laboratory Results - last 24 hr 01/10/23 11:25: POC Glucose 462 H* 01/10/23 12:35: POC Glucose 462 H* 01/10/23 16:24: POC Glucose 272 H 01/10/23 16:30: Urine Color Yellow, Urine Clarity Clear, Urine pH 6.0, Ur Specific [place] 1.015, Urine Protein 15 H, Urine Glucose (UA) 1000 H, Urine Ketones 5 H, Urine Occult Blood Negative, Urine Nitrite Negative, Urine Bilirubin Negative, Urine Urobilinogen Normal, Ur Leukocyte Esterase 500 H, Urine RBC 0 SEEN, Urine WBC 10-25 SEEN, Ur Squamous Epith Cells 0-5 SEEN, Urine Bacteria RARE, Urine Mucus 0 SEEN 01/10/23 21:51: POC Glucose 386 H 01/11/23 05:55: WBC 12.6 H, RBC 3.92 L, Hgb 10.8 L, Hct 34.0 L, MCV 86.7, MCH 27.6, MCHC 31.8 L, RDW Std Deviation 49.1 H, RDW Coeff of Mateus 15.6 H, Plt Count 278, MPV 11.3, Immature Gran % (Auto) 0.600, Neut % (Auto) 79.3 H, Lymph % (Auto) 11.1 L, Kinney % (Auto) 6.0, Eos % (Auto) 1.9, Baso % (Auto) 1.1 H, Absolute Neuts (auto) 10.0 H, Absolute Lymphs (auto) 1.40, Nucleated RBC % 0, Sodium 126 L, Potassium 4.2, Chloride 95 L, Carbon Dioxide 24.0, Anion Gap 7, BUN 12, Creatinine 0.41 L, Estim Creat Clear Calc 45.20, Est GFR (MDRD) Af Amer 199, Est GFR (MDRD) Non-Af 164, BUN/Creatinine Ratio 29.5 H, Glucose 330 H, Calcium 8.5, Total Bilirubin 0.50, AST 9 L, ALT 18, Alkaline Phosphatase 187 H, Total Protein 6.7, Albumin 2.7 L, Globulin 4.0, Albumin/Globulin Ratio 0.7 L 01/11/23 06:32: POC Glucose 330 H Radiography Diagnostic Testing: Radiology Impression Chest X-Ray 01/10/23 06:08 IMPRESSION: Low lung volumes with new bibasilar interstitial process, somewhat confluent, suggesting pulmonary edema given venous congestion. Infectious etiology is not excluded. Electronically Signed: Zeus Jj MD at 7:17 EDT , Chest X-Ray 01/11/23 05:15 IMPRESSION: Stable prominent interstitial markings, a nonspecific finding may be secondary to edema and/or an infectious process. Stable hazy opacity within the right midlung may reflect atelectasis and/or pneumonia. Indeterminate 1.5 cm nodular opacity within the right upper/midlung may be secondary to confluence of shadows however cannot exclude a pulmonary nodule, recommend PA and lateral images for further characterization. Left basilar atelectasis and/or scarring. Electronically Signed: Shanthi Umana MD at 10:39 EDT , Physical Exam Const alert, oriented x3 and no apparent distress General Appearance: cooperative and well developed HEENT normocephalic, head/scalp atraumatic and moist oral mucous membranes Eyes PERRL and EOMs intact bilaterally Neck no lymphadenopathy and supple General: trachea midline Lymph Lymphatic: no lymphadenopathy noted and no lymphedema noted Resp normal respiratory effort, normal air movement and clear to auscultation bilaterally Cardio regular rate, regular rhythm, S1 normal heart sound, S2 normal heart sound and no murmurs GI normal to inspection, nondistended, normoactive bowel sounds, soft to palpation, non-tender and non-distended Extremity normal capillary refill and no clubbing, cyanosis or edema Extremity Narrative: LUE in sling. Skin General Skin Exam: no breakdown Neuro CN's II-XII intact bilaterally, no focal motor deficits and no sensory deficits noted Psych thought process normal and cooperative Appearance: appropriate Assessment & Plan Assessment/Plan (1) Closed fracture of left proximal humerus: (2) Fracture of left inferior pubic ramus: PLAN: Plan #LEft proximal closed humeral fracture * due to mechanical fall * LUE in sling * PT/OT On board * orthopedics consulted; recommend conservative management for now, though RTSA and ORIF optionas are also available. To follow up with orthopedic surgery on outpatient basis. * oral and IV pain meds- tylenol and IV morphine prn as well as oxycodone prn * fall precautions * #left pubic rami fracture * due to mechanical fall * PT/OT on board. * orthopedic surgery on board. Management is conservative * fall precautions * #Rheumatoid arthritis: on methotrexate and folic acid supplementation #Hypothyroidism;on synthroid #Hypertension:not on any oral meds. IV hydralazine prn #Hyperlipidemia: * on ISS. Accuchecks ACHS. * blood sugars running high. She takes a long acting insulin at home but doesnt know the dosage. * Nursing trying to clarify what dosage she takes at home by calling her pharmacy. continue high dose slidiing scale. DVT prophylaxis; lovenox Disposition: will need rehab. PT.OT on board. Awaiting placement Charges/Coding Visit Charges Inpatient E&M: 29323 Subs Hosp L2
[2023-01-11 11:52] LABS: Bedside Glucose 379 mg/dL (74-106)
[2023-01-11] MEDS: Acetaminophen 500 MG Tablet 1000 MG PO ×3 (12:26→22:16)
[2023-01-11] MEDS: Magnesium Chloride 64 MG Delay Rel.Tablet 128 MG PO (12:27)
[2023-01-11] MEDS: Enoxaparin 40 MG/0.4 ML Syringe SC (12:27)
[2023-01-11] MEDS: Losartan Potassium 25 MG Tablet PO (12:27)
[2023-01-11] MEDS: Folic Acid 1 MG Tablet 0.5 MG PO (12:27)
[2023-01-11] MEDS: Insulin Glargine-YFGN 100 UNIT/ML Pen 38 UNIT SC ×2 (12:41→22:18)
[2023-01-11 15:28] VITALS: BP 144/74; PULSE 74; RESP 16; TEMP 36.7; O2SAT 93; O2SAT 95
[2023-01-11 17:20] LABS: Bedside Glucose 353 mg/dL (74-106)
[2023-01-11 20:59] VITALS: BP 162/88; PULSE 88; RESP 12; TEMP 36.6; O2SAT 98
[2023-01-11 21:05] VITALS: PULSE 88; RESP 12; O2SAT 98
[2023-01-11 22:23] LABS: Bedside Glucose 361 mg/dL (74-106)
[2023-01-12] VITALS (7 sets, daily range): BP systolic 131–149; BP diastolic 71–85; PULSE 70–83; RESP 14–18; TEMP 36.6–36.9; O2SAT 93–100; BMI 21.0
[2023-01-12] MEDS: Acetaminophen 500 MG Tablet 1000 MG PO ×3 (06:15→22:39)
[2023-01-12] MEDS: Levothyroxine 150 MCG Tablet PO (06:16)
[2023-01-12 06:37] LABS: Absolute Lymphocyte Count 1.73 X10^3/uL (0.83-4.51); Absolute Neutrophil Count 7.7 X10^3/uL (2.0-7.7); Basophil# 0.11 X10^3/uL; Basophil% 1.1 % (0-1); Eosinophil# 0.26 X10^3/uL; Eosinophils% 2.5 % (0-5); Hematocrit 34.6 % (37-47); Lymphocyte # 1.73 X10^3/ul (0.83-4.51); Lymphocyte % 16.5 % (19-41); Mean Corp Hgb Conc 31.8 g/dL (32-36); Mean Corpuscular Hgb 27.3 pg (27.0-32.0); Mean Corpuscular Volume 85.9 fL (81-99); Monocyte# 0.58 X10^3/uL; Monocyte% 5.5 % (0-10); NRBC Flagged by Analyzer 0 % (0-5); Neutrophil # 7.71 X10^3/uL (2.7-7.7); Neutrophil % 73.7 % (47-70); Platelet Count 318 K/mm3 (150-450); RBC Distribution Width CV 15.2 % (11.6-14.6); Red Blood Count 4.03 M/mm3 (4.2-5.4); White Blood Count 10.5 K/mm3 (4.4-11.0)
[2023-01-12 07:01] LABS: Anion Gap 5 (5-15); BUN 6 mg/dL (7-18); BUN/Creat Ratio 28.7 RATIO (10-20); Calcium,Total 8.7 mg/dL (8.5-10.1); Chloride 101 mmol/L (98-107); Creatinine, Serum 0.21 mg/dL (0.55-1.02); EST Glomerular Filtration Rate 354 mL/min (>60); Est Glom Filt Rate - Afr Amer 429 mL/min (>60); Glucose 67 mg/dL (74-106); Potassium 3.4 mmol/L (3.5-5.1); Sodium Level 132 mmol/L (136-145)
[2023-01-12 07:16] LABS: Bedside Glucose 96 mg/dL (74-106)
[2023-01-12 07:16] LABS: Bedside Glucose 62 mg/dL (74-106)
--- NOTE | 2023-01-12 09:01 | PN_ITS ---
Subjective Subjective Patient seen and examined. She has no complaints today. Pain is well controlled. She had an uneventful night. Review of systems otherwise negative. Her blood pressure was low today; it was in the 60s and became up after she was given some orange juice. Objective Data Objective Data Vital Signs: Vital Signs Temp Pulse Resp BP Pulse Ox O2 Del Method O2 Flow Rate 97.9 F 70 14 148/85 H 95 Nasal Cannula 2 01/12/23 01:39 01/12/23 01:39 01/12/23 01:39 01/12/23 01:39 01/12/23 08:06 01/12/23 08:06 01/12/23 08:06 Oxygen Flow Rate (L/min) 2 Oxygen Delivery Method Nasal Cannula Weight: 122 lb 9.232 oz Body Mass Index (BMI) 21.0 Intake & Output: Intake and Output for Last 24 Hours 01/10/23 01/11/23 01/12/23 23:59 23:59 23:59 Intake Total 1566.67 / 1566.67 300 / 1100 830 / 830 Output Total 1200 / 1200 850 / 1675 825 / 825 Balance 366.67 / 366.67 -550 / -575 5 / Lab / Micro Data 01/12/23 06:24 01/12/23 06:24 Labs: Laboratory Results - last 24 hr 01/11/23 06:32: POC Glucose 330 H 01/11/23 11:33: POC Glucose 379 H 01/11/23 17:01: POC Glucose 353 H 01/11/23 22:04: POC Glucose 361 H 01/12/23 06:24: WBC 10.5, RBC 4.03 L, Hgb 11.0 L, Hct 34.6 L, MCV 85.9, MCH 27.3, MCHC 31.8 L, RDW Std Deviation 48.0 H, RDW Coeff of Mateus 15.2 H, Plt Count 318, MPV 11.0, Immature Gran % (Auto) 0.700, Neut % (Auto) 73.7 H, Lymph % (Auto) 16.5 L, [place] % (Auto) 5.5, Eos % (Auto) 2.5, Baso % (Auto) 1.1 H, Absolute Neuts (auto) 7.7, Absolute Lymphs (auto) 1.73, Nucleated RBC % 0, Sodium 132 L, Potassium 3.4 L, Chloride 101, Carbon Dioxide 26.0, Anion Gap 5, BUN 6 L, Creatinine 0.21 L, Estim Creat Clear Calc 45.20, Est GFR (MDRD) Af Amer 429, Est GFR (MDRD) Non-Af 354, BUN/Creatinine Ratio 28.7 H, Glucose 67 L, Calcium 8.7 01/12/23 06:31: POC Glucose 62 L 01/12/23 06:57: POC Glucose 96 Radiography Diagnostic Testing: Radiology Impression Chest X-Ray 01/11/23 05:15 IMPRESSION: Stable prominent interstitial markings, a nonspecific finding may be secondary to edema and/or an infectious process. Stable hazy opacity within the right midlung may reflect atelectasis and/or pneumonia. Indeterminate 1.5 cm nodular opacity within the right upper/midlung may be secondary to confluence of shadows however cannot exclude a pulmonary nodule, recommend PA and lateral images for further characterization. Left basilar atelectasis and/or scarring. Electronically Signed: Shanthi Umana MD at 10:39 EDT , Physical Exam Const alert, oriented x3 and no apparent distress General Appearance: cooperative and well developed HEENT normocephalic, head/scalp atraumatic and moist oral mucous membranes Eyes PERRL and EOMs intact bilaterally Neck no lymphadenopathy and supple General: trachea midline Lymph Lymphatic: no lymphadenopathy noted and no lymphedema noted Resp normal respiratory effort, normal air movement and clear to auscultation bilaterally Cardio regular rate, regular rhythm, S1 normal heart sound, S2 normal heart sound and no murmurs GI normal to inspection, nondistended, normoactive bowel sounds, soft to palpation, non-tender and non-distended Extremity normal capillary refill and no clubbing, cyanosis or edema Extremity Narrative: LUE in sling. Skin General Skin Exam: no breakdown Neuro CN's II-XII intact bilaterally, no focal motor deficits and no sensory deficits noted Psych thought process normal and cooperative Appearance: appropriate Assessment & Plan Assessment/Plan (1) Closed fracture of left proximal humerus: (2) Fracture of left inferior pubic ramus: PLAN: Plan #LEft proximal closed humeral fracture * due to mechanical fall * LUE in sling * PT/OT On board * orthopedics consulted; recommend conservative management for now, though RTSA and ORIF optionas are also available. To follow up with orthopedic surgery on outpatient basis. * oral and IV pain meds- tylenol and IV morphine prn as well as oxycodone prn * fall precautions * #left pubic rami fracture * due to mechanical fall * PT/OT on board. * orthopedic surgery on board. Management is conservative * fall precautions * #Hypokalemia: potassium is 3.4. Will replace and trend. #Rheumatoid arthritis: on methotrexate and folic acid supplementation #Hypothyroidism;on synthroid #Hypertension:not on any oral meds. IV hydralazine prn #TYpe 2 diabetes mellitus * on lantus. Per her pharmacy, her home dose was 38 units bid, so this was started yesterday * Patient had hypoglycemia with with her blood sugar being 67. We will cut down the insulin to 38 units qhs * #Hyperlipidemia: * on ISS. Accuchecks ACHS. * blood sugars running high. She takes a long acting insulin at home but doesnt know the dosage. * Nursing trying to clarify what dosage she takes at home by calling her pharmacy. continue high dose slidiing scale. DVT prophylaxis; lovenox Disposition: will need rehab. PT.OT on board. Awaiting placement Charges/Coding Visit Charges Inpatient E&M: 71349 Subs Hosp L2
[2023-01-12] MEDS: Potassium Chloride Oral Tablet 20 MEQ 40 MEQ PO (09:08)
[2023-01-12] MEDS: Enoxaparin 40 MG/0.4 ML Syringe SC (09:08)
[2023-01-12] MEDS: Folic Acid 1 MG Tablet 0.5 MG PO (09:08)
[2023-01-12] MEDS: Magnesium Chloride 64 MG Delay Rel.Tablet 128 MG PO (09:09)
[2023-01-12] MEDS: Losartan Potassium 25 MG Tablet PO (09:09)
[2023-01-12 11:44] LABS: Bedside Glucose 262 mg/dL (74-106)
[2023-01-12] MEDS: Insulin Lispro 100 UNIT/ML INSULN.PEN SC ×3 (12:34→22:43)
[2023-01-12 16:27] LABS: Bedside Glucose 250 mg/dL (74-106)
[2023-01-12] MEDS: Insulin Glargine-YFGN 100 UNIT/ML Pen 38 UNIT SC (22:42)
[2023-01-12 23:28] LABS: Bedside Glucose 251 mg/dL (74-106)
[2023-01-12] MEDS: oxyCODONE 5 MG Tablet PO (23:54)
[2023-01-13 02:00] VITALS: BP 131/82; PULSE 81; RESP 18; TEMP 37.2; O2SAT 94
[2023-01-13] MEDS: Levothyroxine 150 MCG Tablet PO (05:29)
[2023-01-13] MEDS: Acetaminophen 500 MG Tablet 1000 MG PO ×2 (05:29→15:13)
[2023-01-13 05:31] VITALS: BMI 20.9
[2023-01-13 06:04] LABS: Absolute Lymphocyte Count 1.97 X10^3/uL (0.83-4.51); Absolute Neutrophil Count 7.1 X10^3/uL (2.0-7.7); Eosinophil# 0.29 X10^3/uL; Eosinophils% 2.9 % (0-5); Lymphocyte # 1.97 X10^3/ul (0.83-4.51); Lymphocyte % 19.6 % (19-41); Mean Corp Hgb Conc 33.3 g/dL (32-36); Mean Corpuscular Hgb 28.4 pg (27.0-32.0); Mean Corpuscular Volume 85.3 fL (81-99); Mean Platelet Vol. 10.7 fl (6.2-12.0); Monocyte# 0.62 X10^3/uL; Monocyte% 6.2 % (0-10); NRBC Flagged by Analyzer 0 % (0-5); Neutrophil # 7.05 X10^3/uL (2.7-7.7); Neutrophil % 69.9 % (47-70); Platelet Count 297 K/mm3 (150-450); RBC Distribution Width CV 15.6 % (11.6-14.6); RBC Distribution Width SD 48.6 fl (35.1-43.9); Red Blood Count 3.87 M/mm3 (4.2-5.4); White Blood Count 10.1 K/mm3 (4.4-11.0)
[2023-01-13] MEDS: Insulin Lispro 100 UNIT/ML INSULN.PEN SC ×2 (06:31→11:35)
[2023-01-13 06:48] LABS: Anion Gap 5 (5-15); BUN 8 mg/dL (7-18); BUN/Creat Ratio 20.2 RATIO (10-20); Calcium,Total 8.9 mg/dL (8.5-10.1); Chloride 102 mmol/L (98-107); EST Glomerular Filtration Rate 169 mL/min (>60); Est Glom Filt Rate - Afr Amer 204 mL/min (>60); Glucose 150 mg/dL (74-106); Sodium Level 132 mmol/L (136-145)
[2023-01-13 06:49] LABS: Bedside Glucose 164 mg/dL (74-106)
--- NOTE | 2023-01-13 07:34 | PN.HOSP_ITS ---
Reason for Visit Reason for Visit: Diagnoses Other specified fracture of left pubis, initial encounter for closed fracture ( 01/10/23) Unspecified fracture of upper end of left humerus, initial encounter for closed fracture (01/10/23) Unspecified fall, initial encounter (01/10/23) Subjective Subjective No new events. Objective Data Objective Data Vital Signs: Vital Signs Temp Pulse Resp BP Pulse Ox O2 Del Method O2 Flow Rate 37.2 C 81 18 131/82 H 94 Room Air 2 01/13/23 02:00 01/13/23 02:00 01/13/23 02:00 01/13/23 02:00 01/13/23 02:00 01/13/23 02:00 01/12/23 13:49 Oxygen Flow Rate (L/min) 2 Oxygen Delivery Method Room Air Weight: 55.537 kg Body Mass Index (BMI) 20.9 Intake & Output: Intake and Output for Last 24 Hours 01/11/23 01/12/23 01/13/23 23:59 23:59 23:59 Intake Total 300 / 1100 1730 / 1730 400 / 400 Output Total 850 / 1675 1275 / 1275 600 / 600 Balance -550 / -575 455 / 455 -200 / -200 Lab / Micro Data 01/13/23 05:36 01/13/23 05:36 Labs: Laboratory Results - last 24 hr 01/12/23 11:27: POC Glucose 262 H 01/12/23 16:06: POC Glucose 250 H 01/12/23 22:23: POC Glucose 251 H 01/13/23 05:36: WBC 10.1, RBC 3.87 L, Hgb 11.0 L, Hct 33.0 L, MCV 85.3, MCH 28.4, MCHC 33.3, RDW Std Deviation 48.6 H, RDW Coeff of Mateus 15.6 H, Plt Count 297, MPV 10.7, Immature Gran % (Auto) 0.400, Neut % (Auto) 69.9, Lymph % (Auto) 19.6, [place] % (Auto) 6.2, Eos % (Auto) 2.9, Baso % (Auto) 1.0, Absolute Neuts (auto) 7.1, Absolute Lymphs (auto) 1.97, Nucleated RBC % 0, Sodium 132 L, Potassium 4.0, Chloride 102, Carbon Dioxide 25.0, Anion Gap 5, BUN 8, Creatinine 0.40 L, Estim Creat Clear Calc 45.20, Est GFR (MDRD) Af Amer 204, Est GFR (MDRD) Non-Af 169, BUN/Creatinine Ratio 20.2 H, Glucose 150 H, Calcium 8.9 01/13/23 06:29: POC Glucose 164 H Micro: Microbiology 01/10/23 16:30 Urine, Clean Catch Urine Culture - Final Mixed Gram Positive Organisms Physical Exam Const alert and no apparent distress HEENT head/scalp atraumatic and moist oral mucous membranes Extremity Extremity Narrative: left arm in sling. Assessment & Plan Assessment/Plan (1) Closed fracture of left proximal humerus: QUALIFIERS: Encounter type: initial encounter Fracture morpholo gy: unspecified fracture morphology Qualified Code(s): S42.202A - Unspecified fracture of upper end of left humerus, initial encounter for closed fracture PLAN: left proximal closed humeral fracture * due to mechanical fall * LUE in sling * PT/OT On board * orthopedics consulted; recommend conservative management for now, though RTSA and ORIF optionas are also available. To follow up with orthopedic surgery on outpatient basis. * oral and IV pain meds- tylenol and IV morphine prn as well as oxycodone prn * fall precautions (2) Fracture of left inferior pubic ramus: QUALIFIERS: Encounter type: initial encounter Fracture type: closed Qualified Code(s): S32.592A - Other specified fracture of left pubis, initial encounter for closed fracture PLAN: left pubic rami fracture * due to mechanical fall * PT/OT on board. * orthopedic surgery on board. Management is conservative * fall precautions (3) Hypokalemia: PLAN: resolved after replacement. PLAN: Plan Chronic conditions: * Rheumatoid arthritis: on methotrexate and folic acid supplementation * Hypothyroidism;on synthroid * Hypertension:fair control. not on any oral meds. IV hydralazine prn * Type 2 diabetes mellitus: on lantus. Per her pharmacy, her home dose was 38 units bid, so this was started yesterday. Patient had hypoglycemia with with her blood sugar being 67. We will cut down the insulin to 38 units qhs. on ISS. Accuchecks ACHS. * #Hyperlipidemia: DVT prophylaxis; lovenox Disposition: to TCU
[2023-01-13 07:36] VITALS: O2SAT 96
[2023-01-13 09:07] VITALS: BP 177/99; PULSE 90; RESP 18; TEMP 37.1; O2SAT 94
[2023-01-13] MEDS: Magnesium Chloride 64 MG Delay Rel.Tablet 128 MG PO (09:11)
[2023-01-13] MEDS: Losartan Potassium 25 MG Tablet PO (09:11)
[2023-01-13] MEDS: Folic Acid 1 MG Tablet 0.5 MG PO (09:11)
--- NOTE | 2023-01-13 10:37 | TREXTCAR_ITS ---
Diet Diet Order/Speech Therapy: 01/10/23 06:36 Diet: Consistent Carb - Calorie Controlled Food consistency:: Regular Liquid Consistency:: Regular/Thin How many daily calories?: 1800 calorie Routine Orders/Code Status Code Status: Full Code Therapies Weight Bearing: Non weight bearing Extremity Affected:: Left Upper (sling to left arm at all times. ) Physical Therapy: Eval and Treat Occupational Therapy: Eval and Treat Problem/Diagnosis (1) Closed fracture of left proximal humerus: Status: Acute Code(s): S42.202A - Unspecified fracture of upper end of left humerus, initial encounter for closed fracture Plan: left proximal closed humeral fracture * due to mechanical fall * LUE in sling * PT/OT On board * orthopedics consulted; recommend conservative management for now, though RTSA and ORIF optionas are also available. To follow up with orthopedic surgery on outpatient basis. * oral and IV pain meds- tylenol and IV morphine prn as well as oxycodone prn * fall precautions (2) Fracture of left inferior pubic ramus: Status: Acute Code(s): S32.592A - Other specified fracture of left pubis, initial encounter for closed fracture Plan: left pubic rami fracture * due to mechanical fall * PT/OT on board. * orthopedic surgery on board. Management is conservative * fall precautions (3) Hypokalemia: Status: Acute Code(s): E87.6 - Hypokalemia Plan: resolved after replacement. Plan Chronic conditions: * Rheumatoid arthritis: on methotrexate and folic acid supplementation * Hypothyroidism;on synthroid * Hypertension:fair control. not on any oral meds. IV hydralazine prn * Type 2 diabetes mellitus: on lantus. Per her pharmacy, her home dose was 38 units bid, so this was started yesterday. Patient had hypoglycemia with with her blood sugar being 67. We will cut down the insulin to 38 units qhs. on ISS. Accuchecks ACHS. * #Hyperlipidemia: DVT prophylaxis; lovenox Disposition: to TCU Allergies/Procedures Done in Hospital Allergies egg [eggs] Adverse Reaction (Verified 01/10/23 04:14) Vomiting Procedures: None Type of Care/Length of Stay Estimated LOS: Convalescent Care Less Than 30 days Type of Care Needed: Skilled Rehab Potential: Good Prognosis: Good Additional Orders/Day of Discharge Day of Discharge: 01/13/23 Discharge Plan Admission Admit Date/Time: 01/10/23 05:53 Primary Reason for Your Visit: left humerus fractuer. pelvic fracture. Attending Provider: Eduardo Hicks Primary Care Provider: Eric Bravo Consulting Providers: Wan Oh; Leyda Garcia; Lana Parks Discharge Orders/Prescriptions Prescriptions: New acetaminophen 500 mg Tablet 1,000 mg PO Q8 Qty: 0 0RF insulin lispro [Humalog KwikPen Insulin] 100 unit/mL Insulin Pen See Protocol subcut ACHS Qty: 0 0RF Protocol: 3. Sliding Scale Insulin Med Dosing Condition: 150-189 mg/dl = 1 unit Condition: 190-229 mg/dl = 2 units Condition: 230-269 mg/dl = 3 units Condition: 270-309 mg/dl = 4 units Condition: 310-349 mg/dl = 5 units Condition: 350-399 mg/dl = 6 units Condition: 400-449 mg/dl = 7 units Condition: Greater than 449 call physician Protocol Text: - Use for Total Daily Dose of Insulin 37-55 units - Obsese, infected, or steroid patients MEDIUM DOSING ALGORITHIM oxycodone 5 mg Tablet 5 mg PO Q4H PRN PRN (Reason: Pain Score 4-10) 3 Days Qty: 12 0RF sennosides-docusate sodium [Stool Softener-Stimulant Laxat] 8.6-50 mg Tablet 2 tab PO BID PRN PRN (Reason: Constipation) Qty: 0 0RF Continued folic acid 400 mcg Tablet 0.4 mg PO DAILY methotrexate sodium 2.5 mg tablet 12.5 mg PO QWEEK Patient Comments: TAKE 5 (FIVE) tablets BY MOUTH per week losartan 25 mg tablet 25 mg PO DAILY levothyroxine 150 MCG tablet 150 mcg PO DAILY magnesium oxide 400 mg magnesium tablet 400 mg PO DAILY prednisone 5 mg tablet 5 mg PO DAILY Patient Comments: TAKE 1 TABLET BY MOUTH EVERY MORNING sertraline 25 mg tablet 25 mg PO DAILY Patient Comments: Take 1 tablet by mouth daily Levemir FlexPen 100 unit/mL (3 mL) insulin pen 38 unit subcut QHS Changed insulin aspart U-100 [Novolog FlexPen U-100 Insulin] 100 unit/mL (3 mL) insulin pen 5 unit subcut TID Qty: 15 0RF Patient Comments: SLIDING SCALE 3-12 UNITS before meals Rx Instructions: Hold if glucose less than 130 mg/dl Discontinued insulin detemir U-100 100 unit/mL (3 mL) insulin pen 15 unit subcut BID Rx Instructions: Hold if glucose less than 130 mg/dl Referrals / Follow Up: Eric Bravo DO [Primary Care Provider] - Within 2 Weeks Wan Oh MD [Med Staff - Active Staff] - Within 2 Weeks Disposition Disposition (needs filled in before D/C Order can be placed): [facility] Living Facility (1) Closed fracture of left proximal humerus Qualifiers: Encounter type: initial encounter Fracture morphology: unspecified fracture morphology Qualified Code(s): S42.202A - Unspecified fracture of upper end of left humerus, initial encounter for closed fracture (2) Fracture of left inferior pubic ramus Qualifiers: Encounter type: initial encounter Fracture type: closed Qualified Code(s): S32.592A - Other specified fracture of left pubis, initial encounter for closed fracture
--- NOTE | 2023-01-13 10:46 | DS.PCM_ITS ---
Providers Date of Admission: 01/10/23 Primary Care Physician: Dr. Eric Bravo, DO Consultations 01/10/23 06:36 Consult: Orthopedics Routine Consulting Provider: Wan Oh Reason for Consult: Fall, L humeral fx, ? Hip fx EMERGENT Consult: No MD Notified: Yes Date Notified: 01/10/23 Time Notified: 06:16 Method of Notification: ED Physician Initiated Reason For Visit: FALL, HUMERAL FX, POSSIBLE HIP FX Diagnosis Discharge Diagnosis (1) Closed fracture of left proximal humerus: Status: Acute Code(s): S42.202A - Unspecified fracture of upper end of left humerus, initial encounter for closed fracture Qualifiers: Encounter type: initial encounter Fracture morphology: unspecified fracture morphology Qualified Code(s): S42.202A - Unspecified fracture of upper end of left humerus, initial encounter for closed fracture Plan: left proximal closed humeral fracture * due to mechanical fall * LUE in sling. NWB LUE. * PT/OT On board * orthopedics consulted; recommend conservative management for now, though RTSA and ORIF optionas are also available. To follow up with orthopedic surgery on outpatient basis. * oral and IV pain meds- tylenol and IV morphine prn as well as oxycodone prn * fall precautions (2) Fracture of left inferior pubic ramus: Status: Acute Code(s): S32.592A - Other specified fracture of left pubis, initial encounter for closed fracture Qualifiers: Encounter type: initial encounter Fracture type: closed Qualified Code(s): S32.592A - Other specified fracture of left pubis, initial encounter for closed fracture Plan: left pubic rami fracture * due to mechanical fall * PT/OT on board. * orthopedic surgery on board. Management is conservative * fall precautions (3) Hypokalemia: Status: Acute Code(s): E87.6 - Hypokalemia Plan: resolved after replacement. Plan Chronic conditions: * Rheumatoid arthritis: on methotrexate and folic acid supplementation * Hypothyroidism;on synthroid * Hypertension:fair control. not on any oral meds. IV hydralazine prn * Type 2 diabetes mellitus: on lantus. Per her pharmacy, her home dose was 38 units bid, so this was started yesterday. Patient had hypoglycemia with with her blood sugar being 67. We will cut down the insulin to 38 units qhs. on ISS. Accbing ACHS. * #Hyperlipidemia: DVT prophylaxis; lovenox Disposition: to TCU Medications at Discharge Home Medications folic acid 400 mcg tablet 0.4 mg PO DAILY SUPPLEMENT 03/15/22 levothyroxine 150 mcg tablet 150 mcg PO DAILY THYROID 03/15/22 losartan 25 mg tablet 25 mg PO DAILY BLOOD PRESSURE 03/15/22 magnesium oxide 400 mg PO DAILY SUPPLEMENT 03/15/22 methotrexate sodium 2.5 mg tablet 12.5 mg PO QWEEK inflammation 03/15/22 prednisone 5 mg tablet 5 mg PO DAILY arthritis 01/10/23 sertraline 25 mg tablet 25 mg PO DAILY depression 01/10/23 insulin detemir U-100 100 unit/mL (3 mL) subcutaneous pen (Levemir FlexPen) 38 unit subcut QHS DMII 01/11/23 acetaminophen 500 mg tablet 1,000 mg (2 x 500 mg) PO Q8 #0 tabs 01/13/23 insulin aspart U-100 100 unit/mL (3 mL) subcutaneous pen (Novolog FlexPen U-100 Insulin aspart) 5 unit (0.05 mL) subcut TID glucose control #15 mL 01/13/23 insulin lispro 100 unit/mL subcutaneous pen (Humalog KwikPen (U-100) Insulin) See Protocol subcut ACHS #0 mL 01/13/23 oxycodone 5 mg tablet 5 mg PO Q4H PRN PRN Pain Score 4-10 3 days #12 tabs 01/13/23 sennosides 8.6 mg-docusate sodium 50 mg tablet (Stool Softener-Stimulant Laxative) 2 tab PO BID PRN PRN Constipation #0 tabs 01/13/23 Hospital Course Operations None Procedures None Summary of Care Provided Minutes Spent on Discharge: 32 Weight / BMI Weight Weight: 55.537 kg Body Mass Index (BMI) 20.9 ABG / Lab / Microbiology Data 01/13/23 05:36 01/13/23 05:36 Laboratory: Laboratory Results - last 24 hr 01/12/23 11:27: POC Glucose 262 H 01/12/23 16:06: POC Glucose 250 H 01/12/23 22:23: POC Glucose 251 H 01/13/23 05:36: WBC 10.1, RBC 3.87 L, Hgb 11.0 L, Hct 33.0 L, MCV 85.3, MCH 28.4, MCHC 33.3, RDW Std Deviation 48.6 H, RDW Coeff of Mateus 15.6 H, Plt Count 297, MPV 10.7, Immature Gran % (Auto) 0.400, Neut % (Auto) 69.9, Lymph % (Auto) 19.6, [place] % (Auto) 6.2, Eos % (Auto) 2.9, Baso % (Auto) 1.0, Absolute Neuts (auto) 7.1, Absolute Lymphs (auto) 1.97, Nucleated RBC % 0, Sodium 132 L, Potassium 4.0, Chloride 102, Carbon Dioxide 25.0, Anion Gap 5, BUN 8, Creatinine 0.40 L, Estim Creat Clear Calc 45.20, Est GFR (MDRD) Af Amer 204, Est GFR (MDRD) Non-Af 169, BUN/Creatinine Ratio 20.2 H, Glucose 150 H, Calcium 8.9 01/13/23 06:29: POC Glucose 164 H Microbiology: Microbiology 01/10/23 16:30 Urine, Clean Catch Urine Culture - Final Mixed Gram Positive Organisms Meaningful Use Info Meaningful Use Diagnoses (Choose all that apply): None applicable Discharge Plan Admission Admit Date/Time: 01/10/23 05:53 Primary Reason for Your Visit: left humerus fractuer. pelvic fracture. Attending Provider: Eduardo Hicks Primary Care Provider: Eric Bravo Consulting Providers: Wan Oh; Leyda Garcia; Lana Parks Discharge Orders/Prescriptions Prescriptions: New acetaminophen 500 mg Tablet 1,000 mg PO Q8 Qty: 0 0RF insulin lispro [Humalog KwikPen Insulin] 100 unit/mL Insulin Pen See Protocol subcut ACHS Qty: 0 0RF Protocol: 3. Sliding Scale Insulin Med Dosing Condition: 150-189 mg/dl = 1 unit Condition: 190-229 mg/dl = 2 units Condition: 230-269 mg/dl = 3 units Condition: 270-309 mg/dl = 4 units Condition: 310-349 mg/dl = 5 units Condition: 350-399 mg/dl = 6 units Condition: 400-449 mg/dl = 7 units Condition: Greater than 449 call physician Protocol Text: - Use for Total Daily Dose of Insulin 37-55 units - Obsese, infected, or steroid patients MEDIUM DOSING ALGORITHIM oxycodone 5 mg Tablet 5 mg PO Q4H PRN PRN (Reason: Pain Score 4-10) 3 Days Qty: 12 0RF sennosides-docusate sodium [Stool Softener-Stimulant Laxat] 8.6-50 mg Tablet 2 tab PO BID PRN PRN (Reason: Constipation) Qty: 0 0RF Continued folic acid 400 mcg Tablet 0.4 mg PO DAILY methotrexate sodium 2.5 mg tablet 12.5 mg PO QWEEK Patient Comments: TAKE 5 (FIVE) tablets BY MOUTH per week losartan 25 mg tablet 25 mg PO DAILY levothyroxine 150 MCG tablet 150 mcg PO DAILY magnesium oxide 400 mg magnesium tablet 400 mg PO DAILY prednisone 5 mg tablet 5 mg PO DAILY Patient Comments: TAKE 1 TABLET BY MOUTH EVERY MORNING sertraline 25 mg tablet 25 mg PO DAILY Patient Comments: Take 1 tablet by mouth daily Levemir FlexPen 100 unit/mL (3 mL) insulin pen 38 unit subcut QHS Changed insulin aspart U-100 [Novolog FlexPen U-100 Insulin] 100 unit/mL (3 mL) insulin pen 5 unit subcut TID Qty: 15 0RF Patient Comments: SLIDING SCALE 3-12 UNITS before meals Rx Instructions: Hold if glucose less than 130 mg/dl Discontinued insulin detemir U-100 100 unit/mL (3 mL) insulin pen 15 unit subcut BID Rx Instructions: Hold if glucose less than 130 mg/dl Referrals / Follow Up: Eric Bravo DO [Primary Care Provider] - Within 2 Weeks Wan Oh MD [Med Staff - Active Staff] - Within 2 Weeks Disposition Disposition (needs filled in before D/C Order can be placed): Care Home Facility Charges/Coding Visit Charges Inpatient E&M: 23385 Disch Hosp >30min
[2023-01-13] MEDS: Enoxaparin 40 MG/0.4 ML Syringe SC (10:49)
--- NOTE | 2023-01-13 10:56 | CASEMGMT ---
Social Work Pt is ready to go to TCU today, TCU can take pt today. SW faxed over discharge instructions to TCU. SW let RN know pt can go to TCU whenever she is ready. SW let pt know she can go to TCU today, pt agreeable. She will call her to let him know. Plan: TCU today, skilled level of care. No further social service needs anticipated at this time. RANDI Brooks
--- NOTE | 2023-01-13 11:01 | PHA.DC.MR.R ---
Pharmacy [place] Med Reconciliation Pharmacy Service has performed discharge medication reconciliation for this patient. The patient's discharge medication list was reviewed for discrepancies and discrepancies were resolved. Medications at Discharge Home Medications folic acid 400 mcg tablet 0.4 mg PO DAILY SUPPLEMENT 03/15/22 levothyroxine 150 mcg tablet 150 mcg PO DAILY THYROID 03/15/22 losartan 25 mg tablet 25 mg PO DAILY BLOOD PRESSURE 03/15/22 magnesium oxide 400 mg PO DAILY SUPPLEMENT 03/15/22 methotrexate sodium 2.5 mg tablet 12.5 mg PO QWEEK inflammation 03/15/22 prednisone 5 mg tablet 5 mg PO DAILY arthritis 01/10/23 sertraline 25 mg tablet 25 mg PO DAILY depression 01/10/23 insulin detemir U-100 100 unit/mL (3 mL) subcutaneous pen (Levemir FlexPen) 38 unit subcut QHS DMII 01/11/23 acetaminophen 500 mg tablet 1,000 mg (2 x 500 mg) PO Q8 #0 tabs 01/13/23 insulin aspart U-100 100 unit/mL (3 mL) subcutaneous pen (Novolog FlexPen U-100 Insulin aspart) 5 unit (0.05 mL) subcut TID glucose control #15 mL 01/13/23 insulin lispro 100 unit/mL subcutaneous pen (Humalog KwikPen (U-100) Insulin) See Protocol subcut ACHS #0 mL 01/13/23 oxycodone 5 mg tablet 5 mg PO Q4H PRN PRN Pain Score 4-10 3 days #12 tabs 01/13/23 sennosides 8.6 mg-docusate sodium 50 mg tablet (Stool Softener-Stimulant Laxative) 2 tab PO BID PRN PRN Constipation #0 tabs 01/13/23
[2023-01-13 11:53] LABS: Bedside Glucose 475 mg/dL (74-106)
[2023-01-13] MEDS: Insulin Lispro 100 UNIT/ML INSULN.PEN 10 UNIT SC (12:00)
[2023-01-13 15:15] VITALS: BP 132/81; PULSE 82; RESP 18; TEMP 36.7; O2SAT 96
== END 2023-01-13 15:55 | DRG 563 ==
LOC: ED 05:47 → MS3 06:21
PROVIDERS: Student in an Organized Health Care Education/Training Program; Admitting Provider Family Medicine; Emergency Provider Emergency Medicine; PCP Family Medicine
DX: S42.202A Unspecified fracture of upper end of left humerus, initial encounter for closed fracture (principal); S32.592A Other specified fracture of left pubis, initial encounter for closed fracture; E11.649 Type 2 diabetes mellitus with hypoglycemia without coma; Z79.4 Long term (current) use of insulin; E11.65 Type 2 diabetes mellitus with hyperglycemia; M06.9 Rheumatoid arthritis, unspecified; I10 Essential (primary) hypertension; E87.6 Hypokalemia; E03.9 Hypothyroidism, unspecified; E78.5 Hyperlipidemia, unspecified; M17.12 Unilateral primary osteoarthritis, left knee; W01.0XXA Fall on same level from slipping, tripping and stumbling without subsequent striking against object, initial encounter; Y93.01 Activity, walking, marching and hiking; Z79.890 Hormone replacement therapy; Z79.899 Other long term (current) drug therapy; Z87.891 Personal history of nicotine dependence
CPT/HCPCS: 36415; 71045; 72192; 73030; 73502; 73560; 80048; 80053; 81001; 82962; 84145; 85025; 87086; 87088; 94668; 97110; 97116; 97162; 97166; 97530; 97535; 99283; J7030; A4216; J2405

== ENCOUNTER 2023-01-13 16:00 | Inpatient (IN) | payer MEDICARE, OTHER, SELFPAY ==
[2023-01-13 16:07] VITALS: BP 154/81; PULSE 81; RESP 16; TEMP 36.2; O2SAT 94; BMI 22.1
[2023-01-13 16:21] VITALS: BMI 22.1
[2023-01-13 16:30] VITALS: PULSE 81; RESP 16; O2SAT 94
[2023-01-13 16:53] LABS: Bedside Glucose 173 mg/dL (74-106)
--- NOTE | 2023-01-13 17:30 | RAD_ITS ---
STUDY: XR Chest 2 Views 01/13/2023 5:31 PM REASON FOR EXAM: Female, 72 years old. Bibasilar crackles. COMPARISON: January 11, 2023 TECHNIQUE: XR Chest 2 Views FINDINGS: There is no demonstrated pleural abnormality. Total right shoulder arthroplasty. There is bilateral infiltrate / atelectasis. Enlarged heart size. Normal mediastinum. Normal batool. Prominent appearing increased interstitial lung markings. Normal visualized pulmonary arteries. There is atherosclerotic calcification of the aortic arch with tortuosity. There are diffuse degenerative changes of the visualized thoracic spine. There is degenerative osteoarthritis of the bilateral shoulders. There are no acute findings of the upper abdomen. RAD/Chest PA and Lateral IMPRESSION: Bilateral pneumonia. This is improved. Electronically Signed: Myles Combs MD at 18:18 EDT ,
[2023-01-13] MEDS: Insulin Lispro 100 UNIT/ML INSULN.PEN SC (18:09)
[2023-01-13] MEDS: Nystatin Powder 15gm Bottle 1 APPLIC TOPICAL (18:27)
[2023-01-13] MEDS: Menthol/Lanolin/Calamine/Znox 113 GM Tube 1 APPLIC TOPICAL (18:28)
[2023-01-13] MEDS: Glycerin/Hypromellose/PEG400 15 ml Bottle 2 DRP EACH EYE ×3 (18:29→22:17)
--- NOTE | 2023-01-13 19:14 | HP.PCM_ITS ---
HPI - General General Date of Admission: 01/13/23 Date of Service: 01/13/23 Chief Complaint: Here for rehabilitation. HPI Narrative 01/10/2023 DURAN DEVI, is a 72 Female who presents to [facility] Emergency Department with fall. Got up middle of night to go to bathroom, on her way back using walker, lost balance, fell, collapsed the walker. Fell on left side injury, left knee, left hip, left shoulder pain. Unable to stand, EMS called, has chronic left knee arthritis. X-ray shows closed fracture left proximal humerus. X-ray fracture left inferior pubic ramus. Unable to walk. 01/10/2023 Admit to Hospital. Pain control, PT/OT, consult Orthopedics for left humerus fracture, left pelvis fracture. Left upper extremity sling, left humerus fracture. Dr. Oh recommended WBAT wit walker for left pelvis fracture. Opting non-operative management currently for left humerus fracture. 01/10/2023 Pain controlled, when not moving. Tylenol, Morphine, Oxycodone for pain control. PT/OT for debility. 01/11/2023 Pain controlled. Blood sugars high. 01/12/2023 No complaints, blood pressure low, improved with orange juice. Lantus 30 units twice daily started for Diabetes Mellitus II. 01/13/2023 Admit to TCU with debility, here for rehabilitation, strengthening, prior to discharge home with . [facility] Medical History (Updated 01/13/23 @ 19:[address] Hu Almonte MD) Chronic anemia Diabetes mellitus, type 2 Former tobacco use HTN (hypertension) Hypothyroidism Rheumatoid arthritis Home Medications folic acid 400 mcg tablet 0.4 mg PO DAILY SUPPLEMENT 03/15/22 [History Last Taken 01/13/23] levothyroxine 150 mcg tablet 150 mcg PO DAILY THYROID 03/15/22 [History Last Taken 01/13/23] losartan 25 mg tablet 25 mg PO DAILY BLOOD PRESSURE 03/15/22 [History Last Taken 01/13/23] magnesium oxide 400 mg PO DAILY SUPPLEMENT 03/15/22 [History Last Taken 01/13/23] methotrexate sodium 2.5 mg tablet 12.5 mg PO QWEEK inflammation 03/15/22 [History Last Taken Unknown] prednisone 5 mg tablet 5 mg PO DAILY arthritis 01/10/23 [History Last Taken Unknown] sertraline 25 mg tablet 25 mg PO DAILY depression 01/10/23 [History Last Taken Unknown] insulin detemir U-100 100 unit/mL (3 mL) subcutaneous pen (Levemir FlexPen) 38 unit subcut QHS DMII 01/11/23 [History Last Taken Unknown] acetaminophen 500 mg tablet 1,000 mg (2 x 500 mg) PO Q8 PAIN #0 tabs 01/13/23 [Rx Last Taken 01/13/23] insulin aspart U-100 100 unit/mL (3 mL) subcutaneous pen (Novolog FlexPen U-100 Insulin aspart) 5 unit (0.05 mL) subcut TID glucose control #15 mL 01/13/23 [Rx Last Taken Unknown] insulin lispro 100 unit/mL subcutaneous pen (Humalog KwikPen (U-100) Insulin) See Protocol subcut ACHS DM #0 mL 01/13/23 [Rx Last Taken Unknown] oxycodone 5 mg tablet 5 mg PO Q4H PRN PRN Pain Score 4-10 3 days #12 tabs 01/13/23 [Rx Last Taken 01/12/23] sennosides 8.6 mg-docusate sodium 50 mg tablet (Stool Softener-Stimulant Laxative) 2 tab PO BID PRN PRN Constipation #0 tabs 01/13/23 [Rx Last Taken Unknown] Allergy/AdvReac Type Severity Reaction Status Date / Time egg [eggs] AdvReac Vomiting Verified 01/13/23 16:08 Family History Mother Diabetes Heart disease Father Diabetes Cancer Throat cancer Surgical History H/O: s/p right shoulder surgery Social History household members: spouse Smoking Status: Former smoker alcohol intake: never substance use type: does not use ROS Constitutional Constitutional: Denies chills, fever(s) or weight gain ENT HEENT: Denies headache(s), nasal congestion or nasal discharge Cardiovascular Cardiovascular: Denies chest pain or palpitations Respiratory/Chest Respiratory/Chest: Denies cough, excessive phlegm production or shortness of breath with exertion Gastrointestinal Gastrointestinal: Denies abdominal pain, nausea or vomiting Genitourinary Genitourinary: Denies dysuria Musculoskeletal Musculoskeletal: Denies joint pain or joint swelling Integumentary Integumentary: Denies rash or wounds Neurologic Neurologic: Denies focal weakness, numbness or tingling Psychiatric Psychiatric: Denies anxiety, auditory hallucinations, depression, homicidal ideation or suicidal ideation Vital Signs Vital Signs Vital Signs: 01/13/23 16:07 01/13/23 16:30 Temperature 97.2 F L Temperature Source Temporal Pulse Rate 81 81 Pulse Rhythm Irregular Pulse Strength Normal (2+) Respiratory Rate 16 16 Respiratory Effort Normal Respiratory Depth Normal Respiratory Pattern Normal Blood Pressure 154/81 H Blood Pressure Mean 105 Blood Pressure Source Monitor Blood Pressure Position Semi-Fowlers Blood Pressure Location Right Arm Pulse Ox 94 94 Oxygen Delivery Method Room Air Room Air Weight Weight: 56.835 kg Body Mass Index (BMI) 22.1 Physical Exam Const alert General Appearance: cooperative HEENT normocephalic Eyes PERRL and EOMs intact bilaterally Neck supple, no JVD and no carotid bruits Resp normal respiratory effort, normal air movement and clear to auscultation bilaterally Cardio regular rate and regular rhythm GI normal to inspection, nondistended, normoactive bowel sounds, non-tender and non-distended Extremity normal capillary refill Extremity Narrative: Left upper extremity sling. General Extremity: Negative for edema Skin no rashes or lesions noted General Skin Exam: no breakdown Psych affect normal Appearance: appropriate Results Lab / Micro Data Labs: Laboratory Results - last 24 hr 01/13/23 16:35: POC Glucose 173 H Radiology Impression Chest X-Ray 01/13/23 17:30 IMPRESSION: Bilateral pneumonia. This is improved. Electronically Signed: Myles Combs MD at 18:18 EDT Reading Location ID and State: [facility] / [place] , Service support , Assessment & Plan Assessment/Plan (1) Debility: (2) Closed fracture of left proximal humerus: QUALIFIERS: Encounter type: initial encounter Fracture morphology: unspecified fracture morphology Qualified Code(s): S42.A - Unspecified fracture of upper end of left humerus, initial encounter for closed fracture (3) Fracture of left inferior pubic ramus: QUALIFIERS: Encounter type: initial encounter Fracture type: closed Qualified Code(s): S32.592A - Other specified fracture of left pubis, initial encounter for closed fracture (4) Diabetes mellitus: (5) Chronic anemia: (6) HTN (hypertension): (7) Hypothyroidism: (8) Rheumatoid arthritis: PLAN: Plan 72 year old female with below past medical history hospitalized for left humerus fracture, left pelvis fracture, admitted to TCU with debility, here for rehabilitation, strengthening, prior to discharge home with . * Debility - PT/OT. * Pain - Tylenol 1000mg q8, Oxycodone 5mg q4h prn pain (4-10). * Bowel - senna/colace 2 tablets bid prn. * Adult immunization - Administer pneumonia vaccine, covid19 vaccine, flu vaccine as appropriate. * DVT prophylaxis - Lovenox 40mg sc daily. * Rheumatoid arthritis - MTX 12.5mg per week, Folic acid 1mg daily, Prednisone 5mg daily. * Diabetes Mellitus II - Glargine 38 units qhs, Humalog 5 units tid. * Hypothyroidism - Levothyroxine 150mcg daily. * Hypertension - Losartan 25mg daily. * Hypomagnesemia - Magnesium 128mg daily. * Skin irritation - Calmoseptine topical bid. * Tinea Corporis - Nystatin topical bid. * Artificial Tears 2gtt q1h prn. 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
--- NOTE | 2023-01-13 19:18 | NURSING ---
Notified Dr. Almonte of chest x-ray results. No new orders. Will continue to monitor.
[2023-01-13] MEDS: oxyCODONE 5 MG Tablet PO (20:26)
[2023-01-13] MEDS: Acetaminophen 500 MG Tablet 1000 MG PO (20:27)
[2023-01-13] MEDS: Insulin Glargine-YFGN 100 UNIT/ML Pen 38 UNIT SC (21:14)
[2023-01-13 21:31] LABS: Bedside Glucose 269 mg/dL (74-106)
--- NOTE | 2023-01-13 22:21 | NURSING ---
Pt has intermittent strong cough through beginning of HS.
--- NOTE | 2023-01-13 22:50 | NURSING ---
Patient requesting pain medication. After looking at MAR, unable to administer any pain medications until 12:30a or after. Discussed this with patient, who was somewhat disgruntled. She stated something about getting some of her own. Will continue to monitor.
[2023-01-14] MEDS: oxyCODONE 5 MG Tablet PO ×3 (01:06→21:11)
[2023-01-14 05:00] VITALS: BP 167/87; PULSE 70; RESP 18; TEMP 36.2; O2SAT 94
[2023-01-14 05:21] LABS: Absolute Lymphocyte Count 1.87 X10^3/uL (0.83-4.51); Absolute Neutrophil Count 6.6 X10^3/uL (2.0-7.7); Basophil# 0.12 X10^3/uL; Basophil% 1.3 % (0-1); Eosinophil# 0.26 X10^3/uL; Eosinophils% 2.7 % (0-5); Hematocrit 35.2 % (37-47); Hemoglobin 11.5 g/dL (12.0-15.0); Lymphocyte # 1.87 X10^3/ul (0.83-4.51); Lymphocyte % 19.7 % (19-41); Mean Corp Hgb Conc 32.7 g/dL (32-36); Mean Corpuscular Hgb 28.2 pg (27.0-32.0); Mean Corpuscular Volume 86.3 fL (81-99); Mean Platelet Vol. 10.2 fl (6.2-12.0); Monocyte# 0.61 X10^3/uL; Monocyte% 6.4 % (0-10); NRBC Flagged by Analyzer 0 % (0-5); Neutrophil # 6.56 X10^3/uL (2.7-7.7); Neutrophil % 69.4 % (47-70); Platelet Count 297 K/mm3 (150-450); RBC Distribution Width CV 15.4 % (11.6-14.6); RBC Distribution Width SD 48.4 fl (35.1-43.9); Red Blood Count 4.08 M/mm3 (4.2-5.4); White Blood Count 9.5 K/mm3 (4.4-11.0)
[2023-01-14 05:50] LABS: Anion Gap 5 (5-15); BUN 6 mg/dL (7-18); BUN/Creat Ratio 14.5 RATIO (10-20); Calcium,Total 8.8 mg/dL (8.5-10.1); Chloride 100 mmol/L (98-107); Creatinine, Serum 0.42 mg/dL (0.55-1.02); EST Glomerular Filtration Rate 161 mL/min (>60); Est Glom Filt Rate - Afr Amer 194 mL/min (>60); Glucose 116 mg/dL (74-106); Potassium 3.9 mmol/L (3.5-5.1); Sodium Level 134 mmol/L (136-145)
[2023-01-14] MEDS: Sertraline 50 MG Tablet 25 MG PO (05:50)
[2023-01-14] MEDS: Acetaminophen 500 MG Tablet 1000 MG PO ×3 (05:52→21:17)
[2023-01-14] MEDS: Enoxaparin 40 MG/0.4 ML Syringe SC (05:53)
[2023-01-14] MEDS: Levothyroxine 150 MCG Tablet PO (05:53)
[2023-01-14] MEDS: Magnesium Chloride 64 MG Delay Rel.Tablet 128 MG PO (05:53)
[2023-01-14] MEDS: Losartan Potassium 25 MG Tablet PO (05:53)
[2023-01-14] MEDS: Menthol/Lanolin/Calamine/Znox 113 GM Tube 1 APPLIC TOPICAL ×2 (05:54→18:58)
[2023-01-14] MEDS: Nystatin Powder 15gm Bottle 1 APPLIC TOPICAL ×2 (05:58→18:58)
--- NOTE | 2023-01-14 06:27 | NURSING ---
Pt states this morning she is probably better off not being here due to her physical state and is tired of laying around and should just end it. Provided emotional support and encouragement.
[2023-01-14 06:28] LABS: Bedside Glucose 97 mg/dL (74-106)
--- NOTE | 2023-01-14 08:05 | PHA.CONS_ITS ---
Documented by User: Francisco Piercegil 01/14/23 09:26 TCU RX Drug Regimen Review Subjective/Objective Subjective/Objective: Subjective: This is a 72 YO F presented to [facility] with fall and fracture to L humers and L inferior pubic ramus. Admitted to TCU on 01/13 for debility, here for rehabilitation and strengthening prior to discharge home with . Objective: Allergies egg [eggs] Adverse Reaction (Verified 01/13/23 16:08) Vomiting Current Medications Generic Name Dose Route Start Last Admin Trade Name Rivka PRN Reason Stop Dose Admin Acetaminophen 1,000 mg 01/13/23 22:00 01/14/23 05:52 Acetaminophen 500 Mg Tablet PO 1,000 mg Q8 MARIANN Administration Calamine/Phenol 1 applic 01/13/23 18:00 01/14/23 05:54 Menthol/Lanolin/Calamine/Znox 113 Gm Tube TOPICAL 1 applic BID MARIANN Administration Protocol Ciprofloxacin HCl 2 drp 01/14/23 10:00 Ciprofloxacin 0.3% 2.5ml Bottle RIGHT EYE 01/19/23 10:01 Q4 [facility] Doxycycline Monohydrate 100 mg 01/14/23 07:30 Doxycycline 100 Mg Capsule PO 01/21/23 07:31 BID MARIANN Enoxaparin Sodium 40 mg 01/14/23 06:00 01/14/23 05:53 Enoxaparin 40 Mg/0.4 Ml Syringe SC 40 mg DAILY@0600 MARIANN Administration Folic Acid 1 mg 01/14/23 08:00 Folic Acid 1 Mg Tablet PO BREAKFAST [facility] Insulin Glargine 38 unit 01/13/23 22:00 01/13/23 21:14 Insulin Glargine-Yfgn 100 Unit/Ml Pen SC 38 unit QHS [facility] Administration Insulin Human Lispro 5 unit 01/14/23 07:45 Insulin Lispro 100 Unit/Ml Insuln.Pen SC TIDCM [facility] Levothyroxine Sodium 150 mcg 01/14/23 06:00 01/14/23 05:53 Levothyroxine 150 Mcg Tablet PO 150 mcg DAILY MARIANN Administration Losartan Potassium 25 mg 01/14/23 06:00 01/14/23 05:53 Losartan Potassium 25 Mg Tablet PO 25 mg DAILY MARIANN Administration Magnesium Chloride 128 mg 01/14/23 06:00 01/14/23 05:53 Magnesium Chloride 64 Mg Delay Rel.Tablet PO 128 mg DAILY MARIANN Administration Melatonin 10 mg 01/14/23 22:00 Melatonin 10 Mg Tablet PO QHS MARIANN 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 12.5 mg 01/20/23 06:00 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 2.5 Mg Tablet PO Mo MARIANN Nystatin 1 applic 01/13/23 18:00 01/14/23 05:58 Nystatin Powder 15gm Bottle TOPICAL 1 applic BID MARIANN Administration Protocol Oxycodone HCl 5 mg 01/13/23 16:40 01/14/23 05:49 Oxycodone 5 Mg Tablet PO 5 mg Q4H PRN PRN Administration Pain Score 4-10 Prednisone 5 mg 01/14/23 08:00 Prednisone 5 Mg Tablet PO DAILYCM MARIANN Senna/Docusate Sodium 2 tablet 01/13/23 16:40 Senna/Docusate Sodium 1 Tablet PO BID PRN PRN Constipation Sertraline HCl 25 mg 01/14/23 06:00 01/14/23 05:50 Sertraline 50 Mg Tablet PO 25 mg DAILY MARIANN Administration Sodium Chloride 10 - 40 ml 01/13/23 17:05 0.9% Saline Lock 10 Ml Syringe IV UD PRN SALINE FLUSH Tramadol HCl 50 mg 01/14/23 07:30 Tramadol 50 Mg Tablet PO Q6H PRN PRN Pain Score 1-3 Tuberculin PPD 0.1 ml 01/21/23 10:00 Tuberculin,Purif.Prot.Deriv. 50 Tu/Ml Vial ID 01/21/23 10:01 X1 ONE Tuberculin PPD 0.1 ml 01/14/23 10:00 Tuberculin,Purif.Prot.Deriv. 50 Tu/Ml Vial ID 01/14/23 10:01 X1 ONE Problem List (Updated 01/13/23 @ 19:[address] Hu Almonte MD) Rheumatoid arthritis (Acute) Hypothyroidism (Acute) HTN (hypertension) (Chronic) Chronic anemia (Chronic) Diabetes mellitus (Acute) Debility (Acute) Closed fracture of left proximal humerus (Acute) Fracture of left inferior pubic ramus (Acute) Vital Signs Temp Pulse Resp BP Pulse Ox O2 Del Method 97.1 F L 70 18 167/87 H 94 Room Air 01/14/23 05:00 01/14/23 05:00 01/14/23 05:00 01/14/23 05:00 01/14/23 05:00 01/14/23 05:00 Oxygen Delivery Method Room Air Weight: 56.835 kg Body Mass Index (BMI) 22.1 Sodium 134 mmol/L (136-145) L 01/14/23 05:11 Potassium 3.9 mmol/L (3.5-5.1) 01/14/23 05:11 Chloride 100 mmol/L (98-107) 01/14/23 05:11 Carbon Dioxide 29.0 mmol/L (21.0-32.0) 01/14/23 05:11 Anion Gap 5 (5-15) 01/14/23 05:11 BUN 6 mg/dL (7-18) L 01/14/23 05:11 Creatinine 0.42 mg/dL (0.55-1.02) L 01/14/23 05:11 Est GFR (MDRD) Af Amer 194 mL/min (>60) 01/14/23 05:11 Est GFR (MDRD) Non-Af 161 mL/min (>60) 01/14/23 05:11 BUN/Creatinine Ratio 14.5 RATIO (10-20) 01/14/23 05:11 Glucose 116 mg/dL (74-106) H 01/14/23 05:11 Assessment/Plan: 1. Pain: Acetaminophen 1000 mg PO Q8H scheduled, oxycodone 5 mg PO Q4H PRN pain 6-10, tramadol 50 mg PO Q6H PRN pain 1-3. Patient has received x 1 PRN dose of oxycodone for a pain score of 7/10. Please continue to monitor for sedation, respiratory depression, pain, and renal dysfunction. 2. Bowel: Senna/docusate 2 tablets PO BID PRN constipation (no documented doses administered this admission). Please continue to monitor for BM (no BM documented yet this admission), and diarrhea. 3. Concern for bilateral infiltrates on chest xray: Doxycycline 100 mg BID x 7 days. Please continue to monitor for s/s of systemic infection including fever (last temp 97.1), WBC (last 9.5) as well as O2 sat (last 94%), photosensitivity and GI upset. 4. Possible pink eye: Ciprofloxacin 0.3% opthalmic drop 2 drops Right EYE Q4H. Please continue to monitor for resolution of s/s of pink eye. 5. Rheumatoid arthritis: 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 12.5 mg PO every week on Friday, folic acid 1 mg PO daily, prednisone 5 mg PO daily. Please continue to monitor blood sugar, delirium (Beers Criteria), GI distress, appetite, anemia (last Hgb 11.5), neutropenia (last WBC 9.5), thrombocytopenia (last platelet count 297), opportunistic infections, hepatotoxicity (last ALT/AST 03/03) , and eye function. 6. Diabetes Mellitus Type II: Insulin glargine 38 units SQ QHS, insulin lispro 5 units TIDWM, Insulin lispro sliding scale TIDCM. Please continue to monitor blood glucose (last POC BG 251), and A1C (last A1C 9.3 on 09/27/22). Please conisder repeating A1C as it has been >3 months since most recent A1C. 7. Hypothyroidism: levothyroxine 150 mcg PO QD. Please continue to monitor TSH (last 19.3 on 12/05/22), T4 (last 1.24 on 11/14/22), for s/s of hypothyroidism, and for s/s of hyperthyroidism. 8. Hypertension: losartan 25 mg PO QD. Please continue to monitor BP (last 167/87), potassium (last 3.9 mmol/L), sodium (last 134 mmol/L), Scr (last 0.42), and CrCl (last 43.3). 9. Bowel: Senna/docusate 2 tablets PO BID PRN constipation. Please continue to monitor for BM (no BM documented yet this admission), and diarrhea. 10. DVT prophylaxis: Enoxaparin 40 mg SQ QD. Please continue to monitor Hgb (last 11.5), platelet count (last 297), CrCl (last 43.30), and for s/s of DVT/PE and for s/s of bleeding (Beers criteria). 11. Skin irritation/Tinea Corporus: Nystatin topical powder 1 application BID, calmoseptine 1 application topically BID. Please continue to monitor for s/s of resolution of tinea corporus and for skin irritation. 12. Hypomagnesemia: Magnesium chloride 128 mg PO QD. Please continue to monitor for hypomagnesemia (last magnesium level 2.0 on 12/05/22). 13. Eye dryness: Artificial tears 2 drops in each eye Q1H PRN. 14. Insomnia: melatonin 10 mg PO Qhs: Please continue to monitor for insomnia and headache. Assessment/Plan for indications treated with psychotropic medications: 1. Depression: sertraline 25 mg PO QD. Please see provider note regarding GDR. Please continue to monitor for confusion/falls, and SI as well as sodium levels (last 131). Medical chart and medication regimen reviewed. The following medication irregularities or issues were identified: 1. Bowel: Please consider changing senna/docusate to 2 tabs PO BID scheduled until patient has a bowel movement as has received oxycodone and has not had a documented BM this admission yet. 2. Diabetes Mellitus Type II: Insulin glargine 38 units SQ QHS, insulin lispro 5 units TIDWM, Insulin lispro sliding scale TIDCM. Please continue to monitor blood glucose (last POC BG 251), and A1C (last A1C 9.3 on 09/27/22). Please consider repeating A1C as it has been >3 months since most recent A1C. Date Date of Note:: 01/14/23 Documented by User: Dr. Hu Almonte MD 01/14/23 09:25 TCU RX Drug Regimen Review Provider Comments Provider responsibility Provider Comments to Recommendations by Pharmacy: Agree
[2023-01-14] MEDS: Doxycycline 100 MG CAPSULE PO ×2 (08:28→17:40)
[2023-01-14] MEDS: Folic Acid 1 MG Tablet PO (08:29)
[2023-01-14] MEDS: predniSONE 5 MG Tablet PO (08:29)
--- NOTE | 2023-01-14 09:35 | CASEMGMT ---
Social Work SW reviewed chart and notified by nursing of pt's thoughts of being better off . SW met with patient at bedside. Introduced self and role. Began with initial assessment questions, building rapport, allowing pt to explain events of fall which led to hospitalization, and hardships following.? Verified/updated contacts. Discussed code status and MOLST form. Pt confirmed DNR-CCA, no intubation. MOLST placed in Dr folder. Pt wishes to complete advanced directives. SW to complete prior to DC, as time allows, once contact information is obtained. SW educated to Medicare benefit. Encouraged to contact secondary insurance to ensure copay coverage. SW completed BIMS and PHQ-9, then proceeded to [place] Suicide Risk Assessment. ?SW asked PHQ-9 in reference to feelings since fall on 01/10/23. Based on the last five days discussed with patient, the PHQ9 score is a 4, with no to question number 9.?? Outside of the last five days, there is also no SI history.? ?Pt reported to having little pleasure in doing things, as she is not able to do the hobbies she enjoys, such as tending to her garden and 30 acres. Pt reports to feeling down, explaining the sudden loss of independence, and having to rely on others to get her up off the floor from the fall, and now with ADL/transfer assistance in the hospital/TCU. Pt stated she is having trouble falling asleep d/t pain and mind wandering, thus resulting in feeling tired and taking naps throughout the day. Pt stated the food is not to be desired and gave some examples. Due to comment made to nurse about being better off , this SW completed [place] Suicide Risk Assessment. Patient denied any current or history of suicidal thoughts/plans/intents/attempts. Pt stated, people actually do this - wow. ?Through discussion, patient denied any history of depression, anxiety, or history of mental health treatment.? Patient reports comment made to nurse today was related out of frustration about current physical state but denied any desire, plan, or intent to attempt suicide or harm self.?? Patient expressed future orientation in desire to work on own physical rehabilitation and to love her family.?? Throughout discussion SW validated feelings and the changes endured since the fall. Empathized with patient?s voiced feelings of being discouraged?. SW educated patient there appears to be PRN pain medications ordered; due to PRN, educated patient to ask nursing for meds when needed, especially prior to bedtime to assist in controlling/preventing pain and allowing sleep. Noted pt has been ordered Melatonin to assist with falling asleep. Pt appreciative of education. SW educated to rest being an important part to recovery. Pt agreed. In regards to voiced concerns about food, SW educated patient can request for staff to warm up food or ways to accommodate pt on the unit. Educated to [employer] visit following admission to assist in preferences and more enjoyable food experience. Pt stated she is used to eating fresh food from garden/greenhouse. SW educated to having family bring in food from home, adhering to ordered diet, to allow ample nutrition, which also is important to recovery. Pt appreciative of information. ?SW acknowledged and normalized changes in independence, abilities, and feelings that have accompanied changes. Patient encouraged to continue working with therapy for ongoing recovery, but cautioned time is needed to heal.? SW educated to having and son participate in therapy session to assist in determining DC timeframe. Pt confirmed the goal is to return home and son's have been supportive. However, pt then shared and son are currently at [facility] to get results on treatment options for 's potential cancer. Pt became tearful expressing this has been a hard month. SW empathized with circumstances. Provided emotional support. SW offered for pt opportunity to share additional information/feelings. Pt explained the origin of the ?s symptoms. SW provided supportive listening. SW inquired about coping mechanisms. Pt states she does wordsearches, crosswords to help keep her mind busy, and relies heavily on her kamran and reading the Bible. SW offered for [employer] visit, to provide Bible and puzzles during stay. 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 SW educated to [employer] visiting tomorrow to offer other self-directed activities, and to notify staff if desires change throughout stay. Pt appreciative. Educated patient that social work remains available for ongoing support if patient feels comfortable/desires.? Patient expressed appreciation. -- SW notified [employer], provided pt a Bible and puzzles. Hand-off given to [employer]. SW will continue to follow for DC planning and support. [place], RAHEEM MARVINW
--- NOTE | 2023-01-14 09:43 | CASEMGMT ---
Social Work SW reviewed chart and notified by nursing of pt's thoughts of being better off . SW met with patient at bedside. Introduced self and role. Began with initial assessment questions, building rapport, allowing pt to explain events of fall and hardships following. Verified/updated contacts. Discussed code status and MOLST form. Pt confirmed DNR-CCA, no intubation. MOLST placed in Dr folder. Pt wishes to complete advanced directives. SW to complete prior to DC, as time allows, once contact information is obtained. SW educated to Medicare benefit. Encouraged to contact secondary insurance to ensure copay coverage. SW completed BIMS and PHQ-9, then proceeded to Hubbard Suicide Assessment Tool. SW asked PHQ-9 in reference to feelings since fall on 01/10/23 (5 days ago) Each response was reported daily since fall. Pt reported to having little pleasure in doing things, as she is not able to do the hobbies she enjoys, such as tending to her garden and 30 acres. Pt reports to feeling down, explaining the loss of independence and having to rely on others to get her up off the floor from the fall, and now with ADL/transfer assistance in the hospital/TCU. Pt stated she is having trouble falling asleep d/t pain and mind wandering, thus resulting in feeling tired and taking naps throughout the day. SW validated feelings and the changes endured since the fall. Empathized with pt being discouraged, per pt. SW educated to the two pain medications ordered PRN; to ask nursing for meds when needed, especially prior to bedtime to assist in controlling/preventing pain and allowing sleep. Noted pt has been ordered Melatonin to assist with falling asleep. Pt appreciative of education and agreeable to meds ordered. SW educated to rest being an important part to recovery. Pt agreed. Pt stated the food is not to be desired and gave some examples. SW educated to notifying staff to warm up food or ways to accommodate pt on the unit. Educated to Bellperson visit following admission to assist in preferences and more enjoyable food experience. Pt stated she is used to eating fresh food from garden/greenhouse. SW educated to having family bring in food from home, adhering to ordered diet, to allow ample nutrition, which also is important to recovery. Pt appreciative of information. SW completed Hubbard and pt denied any thoughts/intents/attempts. Pt stated people actually do this - wow. SW acknowledged and normalized changes in independence, abilities, and feelings that have accompanied changes. SW encouraged pt with improvement with therapy, but cautioned time is needed to heal. SW educated to having and son participate in therapy session to assist in determining DC timeframe. Pt confirmed the goal is to return home and son's have been supportive. However, pt then shared and son are currently at [facility] to get results on treatment options for 's potential cancer. Pt became tearful expressing this has been a hard month. SW empathized with circumstances. Provided emotional support. SW offered for pt to share additional information/feelings. Pt explained the origin of the symptoms. SW provided supportive listening. SW inquired about coping mechanisms. Pt states she does wordsearches, crosswords to help keep her mind busy, and relies heavily on her kamran and reading the Bible. SW offered for Inventory Administrator visit, to provide Bible and puzzles during stay. Pt agreed to all offers, and stated Inventory Administrator did visit pt on acute, along with her personal Orthopaedic Physician Assistant. SW educated to Fire Supervisor visiting tomorrow to offer other self-directed activities, and to notify staff if desires change throughout stay. Pt appreciative. SW offered for pt to continue sharing feelings and 's events with this worker, if pt feels comfortable/desires. Offered ongoing supportive visits. Pt appreciative. -- SW notified Inventory Administrator, provided pt a Bible and puzzles. Hand-off given to Fire Supervisor. SW will continue to follow for DC planning and support. RAHEEM Harrison ENGINEERING PRODUCTION WORKER
[2023-01-14] MEDS: Ciprofloxacin 0.3% 2.5ml Bottle 2 DRP RIGHT EYE ×4 (10:15→21:11)
[2023-01-14] MEDS: Tuberculin,Purif.prot.deriv. 50 TU/ML Vial 0.1 ML ID (10:16)
[2023-01-14] MEDS: Senna/Docusate Sodium 1 Tablet 2 TABLET PO ×2 (10:23→17:40)
[2023-01-14] MEDS: Insulin Lispro 100 UNIT/ML INSULN.PEN SC ×2 (11:41→17:39)
--- NOTE | 2023-01-14 11:43 | NURSING ---
CALLED ON PT B.S.BEING 422. ADVISED TO JUST GIVE HER 5 UNITS AT THIS TIME PER ORDER. RN AWARE
[2023-01-14 12:16] LABS: Bedside Glucose 422 mg/dL (74-106)
[2023-01-14] MEDS: Pneumococcal Vaccine 20 Valent 0.5 ML Syringe IM (13:54)
--- NOTE | 2023-01-14 13:59 | NURSING ---
PREVNAR 20 GIVEN IN RIGHT DELT. PT TOLERATED WELL. VIS GIVEN. WILL CONTINUE TO MONITOR.
[2023-01-14 14:41] VITALS: BP 126/68; PULSE 79; RESP 16; TEMP 36.6; O2SAT 94
[2023-01-14 16:21] VITALS: BMI 21.9
[2023-01-14 17:31] LABS: Bedside Glucose 430 mg/dL (74-106)
[2023-01-14] MEDS: Insulin Lispro 100 UNIT/ML INSULN.PEN 10 UNIT SC (17:38)
[2023-01-14] MEDS: Insulin Glargine-YFGN 100 UNIT/ML Pen 38 UNIT SC (21:12)
[2023-01-14] MEDS: MELATONIN 10 MG TABLET PO (21:18)
[2023-01-14 21:28] VITALS: O2SAT 95
[2023-01-14 21:38] LABS: Bedside Glucose 206 mg/dL (74-106)
[2023-01-15] MEDS: Ciprofloxacin 0.3% 2.5ml Bottle 2 DRP RIGHT EYE ×2 (03:19→06:29)
[2023-01-15] MEDS: traMADol 50 MG Tablet PO ×2 (03:23→21:18)
[2023-01-15] MEDS: Losartan Potassium 25 MG Tablet PO (06:27)
[2023-01-15] MEDS: Levothyroxine 150 MCG Tablet PO (06:28)
[2023-01-15] MEDS: Sertraline 50 MG Tablet 25 MG PO (06:28)
[2023-01-15] MEDS: Senna/Docusate Sodium 1 Tablet 2 TABLET PO ×2 (06:28→17:31)
[2023-01-15] MEDS: Magnesium Chloride 64 MG Delay Rel.Tablet 128 MG PO (06:28)
[2023-01-15] MEDS: Doxycycline 100 MG CAPSULE PO ×2 (06:29→17:31)
[2023-01-15] MEDS: Acetaminophen 500 MG Tablet 1000 MG PO ×3 (06:29→21:19)
[2023-01-15] MEDS: Menthol/Lanolin/Calamine/Znox 113 GM Tube 1 APPLIC TOPICAL ×2 (06:29→17:32)
[2023-01-15] MEDS: Enoxaparin 40 MG/0.4 ML Syringe SC (06:30)
[2023-01-15] MEDS: Nystatin Powder 15gm Bottle 1 APPLIC TOPICAL ×2 (06:30→17:32)
--- NOTE | 2023-01-15 06:36 | NURSING ---
Addendum entered by Lindsey Mondragon 01/15/23 06:59: Blood sugar rechecked and was 92. Original Note: POWER BUILDER DEVELOPER reported blood sugar of 66. Pt denies symptoms at this time. Gave 4 oz of orange juice and 2 saltines with peanut butter. Waiting for reassessment.
[2023-01-15 06:47] LABS: Bedside Glucose 64 mg/dL (74-106)
[2023-01-15 07:15] LABS: Bedside Glucose 92 mg/dL (74-106)
[2023-01-15] MEDS: Insulin Lispro 100 UNIT/ML INSULN.PEN SC ×3 (07:52→17:29)
[2023-01-15] MEDS: Folic Acid 1 MG Tablet PO (07:52)
[2023-01-15] MEDS: predniSONE 5 MG Tablet PO (07:52)
[2023-01-15] MEDS: oxyCODONE 5 MG Tablet PO (10:27)
[2023-01-15] MEDS: Ciprofloxacin 0.3% 2.5ml Bottle 2 DRP EACH EYE ×4 (10:29→21:19)
--- NOTE | 2023-01-15 11:08 | NURSING ---
Outbound Supervisor Note; Activity Asset: Mayank Miller is independent in her choice of daily activities. She did state she would like visits from the successfactors consultant and therapy dog. She has a smartphone and was given a bible and word search puzzle per her request. She will read, watch TV, and visit w/family and friends. Staff will remind her of activities and respect her right to say no.
[2023-01-15 11:26] LABS: Bedside Glucose 167 mg/dL (74-106)
--- NOTE | 2023-01-15 13:22 | CHAPLAIN ---
Type of Pastoral Visit ___ Initial Visit _x__ Follow-up Visit ___ On-call Visit ___ General Patient Visit ___ Spiritual Assessment ___ Family Conference ___ Bereavement ___ Rapid Response ___ Code Blue ___ Other (describe below) Pastoral Care Referral From _x__ Patient ___ Family ___ Nurse ___ Physician ___ Electronic Service Technician ___ Spaghetti Press Helper ___ Other (describe below) Sacrament/Intervention _x__ Active listening ___ Anointing ___ Mandaeism ___ Bereavement ___ Communion ___ Natacha exploration ___ ___ Life review _x__ Prayer ___ Reconciliation ___ Sacrament of Sick _x__ Supportive presence ___ Wedding ___ Other (describe below) Pastoral Comments follow up visit to this patient previously seen in MS[facility]; pt appearance and outlook has improved; pt is talkative and thankful for where she is at and the progress that has begun; lunch was served during this visit and patient talks about the abundance of food and relates it to her years growing up at home; pt welcomes a prayer; pt has no other concerns or needs at this time
[2023-01-15 14:00] VITALS: BP 111/66; PULSE 75; RESP 14; TEMP 36.2; O2SAT 96
--- NOTE | 2023-01-15 14:35 | CASEMGMT ---
Social Work SW phoned sonVinh, to obtain address for POA paperwork. SW phoned sonMateo, but no answer and voicemail not set up. JACKSON updated pt. JACKSON will continue to attempt. RAHEEM HarrisonW
[2023-01-15 16:57] LABS: Bedside Glucose 191 mg/dL (74-106)
[2023-01-15] MEDS: MELATONIN 10 MG TABLET PO (21:20)
[2023-01-15] MEDS: Insulin Glargine-YFGN 100 UNIT/ML Pen 38 UNIT SC (21:20)
[2023-01-15 21:29] VITALS: O2SAT 93
[2023-01-15 21:44] LABS: Bedside Glucose 300 mg/dL (74-106)
[2023-01-16] MEDS: Ciprofloxacin 0.3% 2.5ml Bottle 2 DRP EACH EYE ×6 (01:07→21:12)
[2023-01-16] MEDS: oxyCODONE 5 MG Tablet PO ×2 (02:00→21:10)
[2023-01-16] MEDS: Acetaminophen 500 MG Tablet 1000 MG PO ×3 (06:21→21:11)
[2023-01-16] MEDS: Sertraline 50 MG Tablet 25 MG PO (06:21)
[2023-01-16] MEDS: Levothyroxine 150 MCG Tablet PO (06:22)
[2023-01-16] MEDS: Losartan Potassium 25 MG Tablet PO (06:22)
[2023-01-16] MEDS: Senna/Docusate Sodium 1 Tablet 2 TABLET PO ×2 (06:22→17:20)
[2023-01-16] MEDS: Doxycycline 100 MG CAPSULE PO ×2 (06:22→17:20)
[2023-01-16] MEDS: Magnesium Chloride 64 MG Delay Rel.Tablet 128 MG PO (06:22)
[2023-01-16] MEDS: Menthol/Lanolin/Calamine/Znox 113 GM Tube 1 APPLIC TOPICAL ×2 (06:23→17:23)
[2023-01-16] MEDS: Enoxaparin 40 MG/0.4 ML Syringe SC (06:23)
[2023-01-16] MEDS: Nystatin Powder 15gm Bottle 1 APPLIC TOPICAL ×2 (06:24→17:23)
[2023-01-16 06:40] LABS: Bedside Glucose 278 mg/dL (74-106)
[2023-01-16] MEDS: Insulin Lispro 100 UNIT/ML INSULN.PEN SC ×3 (08:21→17:19)
[2023-01-16] MEDS: predniSONE 5 MG Tablet PO (08:21)
[2023-01-16] MEDS: Folic Acid 1 MG Tablet PO (08:21)
--- NOTE | 2023-01-16 10:51 | NURSING ---
Discussed Dr. Oh follow-up with patient, she is fine with setting up WC transport, aware insurance doesn't always cover the cost. Appt scheduled for Saturday 01/20 @1030. Patient updated. Called and updated Mir (). WC transport with physicians set up- pickup at 0930.
[2023-01-16 11:44] LABS: Bedside Glucose 276 mg/dL (74-106)
[2023-01-16 14:00] VITALS: BP 127/65; PULSE 68; RESP 16; TEMP 36.3; O2SAT 94
[2023-01-16 16:54] LABS: Bedside Glucose 302 mg/dL (74-106)
[2023-01-16 21:05] VITALS: O2SAT 96
[2023-01-16] MEDS: MELATONIN 10 MG TABLET PO (21:11)
--- NOTE | 2023-01-16 21:22 | NURSING ---
HS blood sugar was 372. Dr. Almonte paged and notified. No new orders at this time.
[2023-01-16] MEDS: Insulin Glargine-YFGN 100 UNIT/ML Pen 38 UNIT SC (21:25)
[2023-01-16 21:33] LABS: Bedside Glucose 372 mg/dL (74-106)
[2023-01-17] MEDS: Ciprofloxacin 0.3% 2.5ml Bottle 2 DRP EACH EYE ×6 (01:32→20:44)
[2023-01-17] MEDS: oxyCODONE 5 MG Tablet PO ×2 (02:43→08:41)
[2023-01-17] MEDS: Doxycycline 100 MG CAPSULE PO ×2 (05:23→17:03)
[2023-01-17] MEDS: Enoxaparin 40 MG/0.4 ML Syringe SC (05:23)
[2023-01-17] MEDS: Acetaminophen 500 MG Tablet 1000 MG PO ×3 (05:23→20:43)
[2023-01-17] MEDS: Losartan Potassium 25 MG Tablet PO (05:23)
[2023-01-17] MEDS: Sertraline 50 MG Tablet 25 MG PO (05:24)
[2023-01-17] MEDS: Senna/Docusate Sodium 1 Tablet 2 TABLET PO ×2 (05:24→17:03)
[2023-01-17] MEDS: Magnesium Chloride 64 MG Delay Rel.Tablet 128 MG PO (05:24)
[2023-01-17] MEDS: Levothyroxine 150 MCG Tablet PO (05:24)
[2023-01-17] MEDS: Menthol/Lanolin/Calamine/Znox 113 GM Tube 1 APPLIC TOPICAL ×2 (05:27→17:03)
[2023-01-17] MEDS: traMADol 50 MG Tablet PO ×2 (05:27→12:18)
[2023-01-17] MEDS: Nystatin Powder 15gm Bottle 1 APPLIC TOPICAL ×2 (05:27→17:03)
[2023-01-17 06:41] LABS: Bedside Glucose 207 mg/dL (74-106)
[2023-01-17] MEDS: Insulin Lispro 100 UNIT/ML INSULN.PEN SC ×3 (08:12→17:03)
[2023-01-17] MEDS: Folic Acid 1 MG Tablet PO (08:13)
[2023-01-17] MEDS: predniSONE 5 MG Tablet PO (08:13)
[2023-01-17 11:08] LABS: Bedside Glucose 191 mg/dL (74-106)
[2023-01-17 14:00] VITALS: BP 102/51; PULSE 74; RESP 16; TEMP 36.1; O2SAT 94
[2023-01-17 16:53] LABS: Bedside Glucose 328 mg/dL (74-106)
[2023-01-17] MEDS: Doxepin Hydrochloride 10 MG Capsule PO (20:43)
[2023-01-17] MEDS: Insulin Glargine-YFGN 100 UNIT/ML Pen 38 UNIT SC (20:44)
[2023-01-17 21:08] LABS: Bedside Glucose 382 mg/dL (74-106)
[2023-01-18] MEDS: oxyCODONE 5 MG Tablet PO ×2 (00:33→06:07)
[2023-01-18] MEDS: Ciprofloxacin 0.3% 2.5ml Bottle 2 DRP EACH EYE ×6 (02:33→23:07)
--- NOTE | 2023-01-18 02:55 | NURSING ---
0200 pt rings and reports that she needs to used the toilet, pt has a purewick in place. staff to check on pt and attends is noted to be be wet and the purewick was not in place. pt stated that she still needed to void. pt was bladder scan for 461cc. rn made aware, pt was straight cathed for 460cc and urine obtained for ua. urine sent to the lab to be held until an order is obtained from the doctor. pt tolerated the procedure well and urine was light yellow and clear. pt had been reporting that her lower back was hurting but denied any other sx .
[2023-01-18] MEDS: Enoxaparin 40 MG/0.4 ML Syringe SC (05:55)
[2023-01-18] MEDS: Acetaminophen 500 MG Tablet 1000 MG PO ×3 (05:55→23:06)
[2023-01-18] MEDS: Doxycycline 100 MG CAPSULE PO ×2 (05:56→17:53)
[2023-01-18] MEDS: Sertraline 50 MG Tablet 25 MG PO (05:56)
[2023-01-18] MEDS: Senna/Docusate Sodium 1 Tablet 2 TABLET PO ×2 (05:56→17:54)
[2023-01-18] MEDS: Losartan Potassium 25 MG Tablet PO (05:56)
[2023-01-18] MEDS: Magnesium Chloride 64 MG Delay Rel.Tablet 128 MG PO (05:57)
[2023-01-18] MEDS: Levothyroxine 150 MCG Tablet PO (05:57)
[2023-01-18] MEDS: Nystatin Powder 15gm Bottle 1 APPLIC TOPICAL ×2 (05:58→23:09)
[2023-01-18] MEDS: Menthol/Lanolin/Calamine/Znox 113 GM Tube 1 APPLIC TOPICAL ×2 (05:58→17:51)
[2023-01-18 06:43] LABS: Bedside Glucose 60 mg/dL (74-106)
[2023-01-18 07:11] LABS: Bedside Glucose 137 mg/dL (74-106)
[2023-01-18] MEDS: Insulin Lispro 100 UNIT/ML INSULN.PEN SC ×3 (08:09→17:52)
[2023-01-18] MEDS: Folic Acid 1 MG Tablet PO (08:11)
[2023-01-18] MEDS: predniSONE 5 MG Tablet PO (08:11)
[2023-01-18 11:02] LABS: Bacteria 0 SEEN /hpf (None Seen); Mucous, Urine 0 SEEN /hpf (<or=2+); Red Blood Cells-Urine 0 SEEN /hpf (0-5); Squamous Epithelial Cells - UA 0 SEEN /hpf (5-10); White Blood Cells 0 SEEN /hpf (0-5)
[2023-01-18 11:16] LABS: Color, Urine Yellow (Yellow); Glucose, Dipstick 100 mg/dl (Normal); Ketone-Dipstick Negative (Negative); Leukocyte Esterase-Dipstick Negative /ul (Negative); Nitrite-Dipstick Negative (Negative); Occult Blood-Urine Negative /ul (Negative); Protein-Dipstick Negative (Negative); Urine Bilirubin Dipstick Negative (Negative); Urine Clarity Clear (Clear); Urine Urobilinogen Normal (Normal); Urine pH 6.5 (5.0 - 8.0)
[2023-01-18 11:27] LABS: Bedside Glucose 218 mg/dL (74-106)
--- NOTE | 2023-01-18 11:28 | NURSING ---
PT HERE AND UPDATED HIM ON PT.
[2023-01-18 14:00] VITALS: BP 136/68; PULSE 69; RESP 16; TEMP 36.2; O2SAT 93
[2023-01-18 17:24] LABS: Bedside Glucose 211 mg/dL (74-106)
[2023-01-18 21:56] LABS: Bedside Glucose 255 mg/dL (74-106)
[2023-01-18] MEDS: Doxepin Hydrochloride 10 MG Capsule PO (23:06)
[2023-01-18] MEDS: Insulin Glargine-YFGN 100 UNIT/ML Pen 38 UNIT SC (23:07)
--- NOTE | 2023-01-19 00:35 | NURSING ---
Alexey ahn x 1 packet given for hs snack w/ glargine insulin per pt request. Will continue to monitor.
[2023-01-19] MEDS: oxyCODONE 5 MG Tablet PO (02:07)
[2023-01-19] MEDS: Ciprofloxacin 0.3% 2.5ml Bottle 2 DRP EACH EYE ×6 (02:07→21:20)
[2023-01-19] MEDS: Doxycycline 100 MG CAPSULE PO ×2 (05:59→18:03)
[2023-01-19] MEDS: Sertraline 50 MG Tablet 25 MG PO (05:59)
[2023-01-19] MEDS: Enoxaparin 40 MG/0.4 ML Syringe SC (05:59)
[2023-01-19 06:00] VITALS: BP 100/56; PULSE 66
[2023-01-19] MEDS: Acetaminophen 500 MG Tablet 1000 MG PO ×3 (06:00→21:20)
[2023-01-19] MEDS: Levothyroxine 150 MCG Tablet PO (06:00)
[2023-01-19] MEDS: Senna/Docusate Sodium 1 Tablet 2 TABLET PO ×2 (06:01→18:03)
[2023-01-19] MEDS: Magnesium Chloride 64 MG Delay Rel.Tablet 128 MG PO (06:01)
[2023-01-19] MEDS: Menthol/Lanolin/Calamine/Znox 113 GM Tube 1 APPLIC TOPICAL ×2 (06:02→18:02)
--- NOTE | 2023-01-19 06:11 | NURSING ---
Jimmy sim at this time d/t low BP. Refer to vital signs. Will report to oncoming nurse and continue to monitor.
[2023-01-19 06:34] LABS: Bedside Glucose 131 mg/dL (74-106)
[2023-01-19] MEDS: Insulin Lispro 100 UNIT/ML INSULN.PEN SC ×3 (08:06→18:04)
[2023-01-19] MEDS: Folic Acid 1 MG Tablet PO (08:08)
[2023-01-19] MEDS: predniSONE 5 MG Tablet PO (08:08)
[2023-01-19] MEDS: Losartan Potassium 25 MG Tablet PO (08:11)
[2023-01-19 08:13] VITALS: BP 114/60; PULSE 69
[2023-01-19 09:30] VITALS: PULSE 72; RESP 18; O2SAT 96
[2023-01-19 12:21] LABS: Bedside Glucose 125 mg/dL (74-106)
[2023-01-19 14:00] VITALS: BP 136/76; PULSE 77; RESP 14; TEMP 37.2; O2SAT 97
[2023-01-19 16:59] LABS: Bedside Glucose 107 mg/dL (74-106)
[2023-01-19] MEDS: Nystatin Powder 15gm Bottle 1 APPLIC TOPICAL (21:18)
[2023-01-19] MEDS: Doxepin Hydrochloride 10 MG Capsule PO (21:19)
[2023-01-19] MEDS: Insulin Glargine-YFGN 100 UNIT/ML Pen 38 UNIT SC (21:30)
[2023-01-19 21:50] LABS: Bedside Glucose 209 mg/dL (74-106)
[2023-01-20] MEDS: oxyCODONE 5 MG Tablet PO (00:13)
[2023-01-20] MEDS: Ciprofloxacin 0.3% 2.5ml Bottle 2 DRP EACH EYE ×2 (01:59→05:38)
[2023-01-20] MEDS: Enoxaparin 40 MG/0.4 ML Syringe SC (05:38)
[2023-01-20] MEDS: Acetaminophen 500 MG Tablet 1000 MG PO ×3 (05:38→21:50)
[2023-01-20] MEDS: Magnesium Chloride 64 MG Delay Rel.Tablet 128 MG PO (05:39)
[2023-01-20] MEDS: Senna/Docusate Sodium 1 Tablet 2 TABLET PO ×2 (05:39→17:43)
[2023-01-20] MEDS: Losartan Potassium 25 MG Tablet PO (05:39)
[2023-01-20] MEDS: Levothyroxine 150 MCG Tablet PO (05:39)
[2023-01-20] MEDS: Sertraline 50 MG Tablet 25 MG PO (05:40)
[2023-01-20] MEDS: Doxycycline 100 MG CAPSULE PO ×2 (05:40→17:43)
[2023-01-20] MEDS: Menthol/Lanolin/Calamine/Znox 113 GM Tube 1 APPLIC TOPICAL ×2 (05:41→17:44)
[2023-01-20] MEDS: traMADol 50 MG Tablet PO ×2 (05:42→21:49)
[2023-01-20] MEDS: Methotrexate 2.5 MG Tablet 12.5 MG PO (05:43)
[2023-01-20 05:52] LABS: Absolute Lymphocyte Count 2.74 X10^3/uL (0.83-4.51); Absolute Neutrophil Count 6.1 X10^3/uL (2.0-7.7); Basophil# 0.17 X10^3/uL; Basophil% 1.7 % (0-1); Eosinophil# 0.33 X10^3/uL; Eosinophils% 3.3 % (0-5); Hematocrit 32.6 % (37-47); Hemoglobin 10.7 g/dL (12.0-15.0); Lymphocyte # 2.74 X10^3/ul (0.83-4.51); Lymphocyte % 27.3 % (19-41); Mean Corp Hgb Conc 32.8 g/dL (32-36); Mean Corpuscular Volume 85.3 fL (81-99); Mean Platelet Vol. 10.5 fl (6.2-12.0); Monocyte# 0.61 X10^3/uL; Monocyte% 6.1 % (0-10); NRBC Flagged by Analyzer 0 % (0-5); Neutrophil # 6.08 X10^3/uL (2.7-7.7); Neutrophil % 60.7 % (47-70); Platelet Count 350 K/mm3 (150-450); RBC Distribution Width CV 15.7 % (11.6-14.6); RBC Distribution Width SD 48.4 fl (35.1-43.9); Red Blood Count 3.82 M/mm3 (4.2-5.4)
--- NOTE | 2023-01-20 05:52 | NURSING ---
Bladder scan completed after voiding twice in a little over an hour. Pt denies any c/o. Bladder scan for 7ml after voiding 50ml. Will continue to monitor.
[2023-01-20 06:06] VITALS: BP 125/63; PULSE 69
[2023-01-20 06:15] LABS: Anion Gap 5 (5-15); BUN 18 mg/dL (7-18); BUN/Creat Ratio 45.9 RATIO (10-20); Calcium,Total 8.9 mg/dL (8.5-10.1); Chloride 101 mmol/L (98-107); Creatinine, Serum 0.39 mg/dL (0.55-1.02); EST Glomerular Filtration Rate 171 mL/min (>60); Est Glom Filt Rate - Afr Amer 207 mL/min (>60); Glucose 135 mg/dL (74-106); Potassium 3.8 mmol/L (3.5-5.1); Sodium Level 133 mmol/L (136-145)
[2023-01-20 06:25] LABS: Bedside Glucose 123 mg/dL (74-106)
[2023-01-20] MEDS: Folic Acid 1 MG Tablet PO (09:15)
[2023-01-20] MEDS: predniSONE 5 MG Tablet PO (09:15)
[2023-01-20 11:44] LABS: Bedside Glucose 106 mg/dL (74-106)
[2023-01-20 14:00] VITALS: BP 150/69; PULSE 79; RESP 16; TEMP 36.3; O2SAT 96
--- NOTE | 2023-01-20 14:45 | NURSING ---
Patient seen Dr. Oh today at [facility]. Patient is weight bearing as tolerated to left upper arm. Patient is to try and not use sling. Also to start w/ passive ROM.
--- NOTE | 2023-01-20 15:52 | CASEMGMT ---
Social Work BIMS () and PHQ-9 (07/12) completed for MDS assessment. Pt noted her mood has improved since admission. SW requested to pt for son, Mateo, to call this worker or for pt to retrieve address for SW to complete advanced directives. Santa Alejandro, COIL MAKER ACCOUNTS ADMINISTRATOR
[2023-01-20 17:07] LABS: Bedside Glucose 257 mg/dL (74-106)
[2023-01-20] MEDS: Insulin Lispro 100 UNIT/ML INSULN.PEN SC (17:43)
[2023-01-20 21:26] LABS: Bedside Glucose 292 mg/dL (74-106)
[2023-01-20] MEDS: Doxepin Hydrochloride 10 MG Capsule PO (21:50)
[2023-01-20] MEDS: Insulin Glargine-YFGN 100 UNIT/ML Pen 38 UNIT SC (21:50)
[2023-01-20 22:21] VITALS: O2SAT 95
[2023-01-21] MEDS: oxyCODONE 5 MG Tablet PO (01:28)
[2023-01-21] MEDS: Acetaminophen 500 MG Tablet 1000 MG PO ×3 (05:03→21:44)
[2023-01-21] MEDS: Senna/Docusate Sodium 1 Tablet 2 TABLET PO ×2 (05:04→17:50)
[2023-01-21] MEDS: Doxycycline 100 MG CAPSULE PO (05:05)
[2023-01-21] MEDS: Losartan Potassium 25 MG Tablet PO (05:05)
[2023-01-21] MEDS: Sertraline 50 MG Tablet 25 MG PO (05:05)
[2023-01-21] MEDS: Menthol/Lanolin/Calamine/Znox 113 GM Tube 1 APPLIC TOPICAL ×2 (05:06→17:51)
[2023-01-21] MEDS: Magnesium Chloride 64 MG Delay Rel.Tablet 128 MG PO (05:06)
[2023-01-21] MEDS: Enoxaparin 40 MG/0.4 ML Syringe SC (05:06)
[2023-01-21] MEDS: Levothyroxine 150 MCG Tablet PO (05:06)
[2023-01-21] MEDS: traMADol 50 MG Tablet PO ×2 (05:09→21:57)
[2023-01-21] MEDS: Ammonium Lactate 225 gm Bottle 1 APPLIC TOPICAL ×2 (05:13→17:50)
[2023-01-21 05:51] LABS: Absolute Lymphocyte Count 3.23 X10^3/uL (0.83-4.51); Absolute Neutrophil Count 5.6 X10^3/uL (2.0-7.7); Basophil# 0.18 X10^3/uL; Basophil% 1.8 % (0-1); Hematocrit 35.8 % (37-47); Hemoglobin 11.1 g/dL (12.0-15.0); Lymphocyte # 3.23 X10^3/ul (0.83-4.51); Lymphocyte % 32.7 % (19-41); Mean Corpuscular Hgb 27.3 pg (27.0-32.0); Mean Platelet Vol. 10.3 fl (6.2-12.0); Monocyte% 5.1 % (0-10); NRBC Flagged by Analyzer 0 % (0-5); Neutrophil # 5.57 X10^3/uL (2.7-7.7); Neutrophil % 56.3 % (47-70); POSITIVE MORPHOLOGY YES; Platelet Count 391 K/mm3 (150-450); RBC Distribution Width CV 15.6 % (11.6-14.6); RBC Distribution Width SD 50.6 fl (35.1-43.9); Red Blood Count 4.07 M/mm3 (4.2-5.4); White Blood Count 9.9 K/mm3 (4.4-11.0)
[2023-01-21 05:56] LABS: Differential Indicated SCAN CRITERIA MET
[2023-01-21 06:20] LABS: Bedside Glucose 62 mg/dL (74-106)
[2023-01-21 06:26] LABS: Anion Gap 4 (5-15); BUN 15 mg/dL (7-18); BUN/Creat Ratio 43.1 RATIO (10-20); Calcium,Total 9.5 mg/dL (8.5-10.1); Chloride 99 mmol/L (98-107); Creatinine, Serum 0.35 mg/dL (0.55-1.02); EST Glomerular Filtration Rate 197 mL/min (>60); Est Glom Filt Rate - Afr Amer 238 mL/min (>60); Glucose 78 mg/dL (74-106); Potassium 3.7 mmol/L (3.5-5.1); Sodium Level 132 mmol/L (136-145)
--- NOTE | 2023-01-21 06:37 | NURSING ---
Am accucheck was 62. BRIM POUNCER gave patient orange juice with sugar and notified this nurse. Recheck after 15 minutes was 80. Pt denies any symptoms at this time.
[2023-01-21 06:53] LABS: Bedside Glucose 80 mg/dL (74-106)
[2023-01-21 07:05] LABS: Anisocytosis 1+
[2023-01-21] MEDS: Folic Acid 1 MG Tablet PO (07:53)
[2023-01-21] MEDS: predniSONE 5 MG Tablet PO (07:53)
[2023-01-21] MEDS: Insulin Lispro 100 UNIT/ML INSULN.PEN SC ×2 (07:54→17:48)
[2023-01-21 09:39] VITALS: BMI 22.6
[2023-01-21] MEDS: Tuberculin,Purif.prot.deriv. 50 TU/ML Vial 0.1 ML ID (10:22)
[2023-01-21 11:31] LABS: Bedside Glucose 126 mg/dL (74-106)
[2023-01-21 14:00] VITALS: BP 140/65; PULSE 74; RESP 14; TEMP 36; O2SAT 97
[2023-01-21 17:01] LABS: Bedside Glucose 229 mg/dL (74-106)
[2023-01-21 21:30] VITALS: BP 157/70; PULSE 74; RESP 18; TEMP 35.9; O2SAT 97
[2023-01-21] MEDS: Doxepin Hcl 25 MG Capsule PO (21:44)
[2023-01-21 21:46] LABS: Bedside Glucose 134 mg/dL (74-106)
[2023-01-21] MEDS: Insulin Glargine-YFGN 100 UNIT/ML Pen 30 UNIT SC (21:46)
[2023-01-22] MEDS: oxyCODONE 5 MG Tablet PO ×2 (00:16→21:24)
[2023-01-22] MEDS: Ammonium Lactate 225 gm Bottle 1 APPLIC TOPICAL ×2 (04:57→17:31)
[2023-01-22] MEDS: Levothyroxine 150 MCG Tablet PO (04:58)
[2023-01-22] MEDS: Sertraline 50 MG Tablet 25 MG PO (04:58)
[2023-01-22] MEDS: Magnesium Chloride 64 MG Delay Rel.Tablet 128 MG PO (04:59)
[2023-01-22] MEDS: Senna/Docusate Sodium 1 Tablet 2 TABLET PO ×2 (04:59→17:31)
[2023-01-22] MEDS: Losartan Potassium 25 MG Tablet PO (04:59)
[2023-01-22] MEDS: Enoxaparin 40 MG/0.4 ML Syringe SC (04:59)
[2023-01-22] MEDS: Acetaminophen 500 MG Tablet 1000 MG PO ×3 (04:59→21:24)
[2023-01-22] MEDS: Menthol/Lanolin/Calamine/Znox 113 GM Tube 1 APPLIC TOPICAL ×2 (05:00→17:30)
[2023-01-22 06:27] LABS: Bedside Glucose 89 mg/dL (74-106)
[2023-01-22] MEDS: predniSONE 5 MG Tablet PO (07:49)
[2023-01-22] MEDS: Folic Acid 1 MG Tablet PO (07:49)
--- NOTE | 2023-01-22 09:14 | NURSING ---
CALLED MADE TO OFFICE PER FOR CONSULT. SUPERVISOR WOOL SHEARING STATED SHE WOULD LET KNOW.
[2023-01-22 10:00] VITALS: PULSE 70; RESP 16; O2SAT 95
--- NOTE | 2023-01-22 10:02 | CASEMGMT ---
Social Work IDT met with patient and for care plan meeting. Discussed patient's progress in PT/OT/ST/SN. Educated to Medicare benefit. Encouraged to contact secondary insurance to ensure copay coverage. Currently pt is x2 assist or max x1 depending on pain. needs pt to be closer to PLOF to have pt return home and assist. SW will continue to follow for DC planning. SW reminded pt and to get son's address and phone number to complete advanced directives. RAHEEM HarrisonW
[2023-01-22 11:20] LABS: Bedside Glucose 204 mg/dL (74-106)
[2023-01-22] MEDS: Insulin Lispro 100 UNIT/ML INSULN.PEN SC ×2 (11:50→17:31)
[2023-01-22 14:00] VITALS: BP 154/78; PULSE 77; RESP 16; TEMP 36.5; O2SAT 98
[2023-01-22 16:58] LABS: Bedside Glucose 300 mg/dL (74-106)
[2023-01-22 21:24] LABS: Bedside Glucose 265 mg/dL (74-106)
[2023-01-22] MEDS: Doxepin Hcl 25 MG Capsule PO (21:25)
[2023-01-22] MEDS: Insulin Glargine-YFGN 100 UNIT/ML Pen 30 UNIT SC (21:26)
[2023-01-23] MEDS: Levothyroxine 150 MCG Tablet PO (05:15)
[2023-01-23] MEDS: Magnesium Chloride 64 MG Delay Rel.Tablet 128 MG PO (05:15)
[2023-01-23] MEDS: Losartan Potassium 25 MG Tablet PO (05:15)
[2023-01-23] MEDS: Senna/Docusate Sodium 1 Tablet 2 TABLET PO ×2 (05:16→17:33)
[2023-01-23] MEDS: Enoxaparin 40 MG/0.4 ML Syringe SC (05:16)
[2023-01-23] MEDS: Sertraline 50 MG Tablet 25 MG PO (05:16)
[2023-01-23] MEDS: Acetaminophen 500 MG Tablet 1000 MG PO ×3 (05:16→21:48)
[2023-01-23] MEDS: oxyCODONE 5 MG Tablet PO (05:17)
[2023-01-23] MEDS: Ammonium Lactate 225 gm Bottle 1 APPLIC TOPICAL ×2 (05:17→21:49)
[2023-01-23] MEDS: Menthol/Lanolin/Calamine/Znox 113 GM Tube 1 APPLIC TOPICAL ×2 (05:19→17:33)
[2023-01-23 06:20] LABS: Bedside Glucose 160 mg/dL (74-106)
[2023-01-23] MEDS: predniSONE 5 MG Tablet PO (07:44)
[2023-01-23] MEDS: Folic Acid 1 MG Tablet PO (07:44)
[2023-01-23] MEDS: Insulin Lispro 100 UNIT/ML INSULN.PEN SC ×3 (07:46→17:32)
--- NOTE | 2023-01-23 10:53 | NURSING ---
Pt stated that she has upset stomach. Pt was given tiara asha and saltine crackers. Will continue to monitor.
[2023-01-23 10:55] LABS: Bedside Glucose 239 mg/dL (74-106)
--- NOTE | 2023-01-23 11:46 | MDS.RN ---
Information for the mds was obtained from review of the clinical record, interview of resident, staff, and direct observation of resident's care.
--- NOTE | 2023-01-23 11:55 | NURSING ---
Pt had an egg mc muffin this morning to breakfast with large amount of egg on it. Pt is allergic to eggs and states that she has once or twice a week at home. Called dietary and discussed and came to the final answer of just doing away with all foods with egg. Pt states stomach is still a little upset, in which this could be a result from eating the eggs this morning.
[2023-01-23 14:00] VITALS: BP 130/59; PULSE 69; RESP 16; TEMP 36.2; O2SAT 95
[2023-01-23 16:41] LABS: Bedside Glucose 314 mg/dL (74-106)
[2023-01-23 21:32] LABS: Bedside Glucose 276 mg/dL (74-106)
[2023-01-23] MEDS: Doxepin Hcl 25 MG Capsule PO (21:48)
[2023-01-23] MEDS: Insulin Glargine-YFGN 100 UNIT/ML Pen 30 UNIT SC (21:49)
[2023-01-24] MEDS: oxyCODONE 5 MG Tablet PO ×2 (03:14→21:58)
[2023-01-24] MEDS: Enoxaparin 40 MG/0.4 ML Syringe SC (06:33)
[2023-01-24] MEDS: Menthol/Lanolin/Calamine/Znox 113 GM Tube 1 APPLIC TOPICAL ×2 (06:33→17:46)
[2023-01-24 06:34] LABS: Bedside Glucose 122 mg/dL (74-106)
[2023-01-24] MEDS: Magnesium Chloride 64 MG Delay Rel.Tablet 128 MG PO (06:34)
[2023-01-24] MEDS: Losartan Potassium 25 MG Tablet PO (06:35)
[2023-01-24] MEDS: Sertraline 50 MG Tablet 25 MG PO (06:35)
[2023-01-24] MEDS: Senna/Docusate Sodium 1 Tablet 2 TABLET PO ×2 (06:35→17:44)
[2023-01-24] MEDS: Levothyroxine 150 MCG Tablet PO (06:35)
[2023-01-24] MEDS: Acetaminophen 500 MG Tablet 1000 MG PO ×3 (06:36→22:01)
[2023-01-24] MEDS: Ammonium Lactate 225 gm Bottle 1 APPLIC TOPICAL (06:39)
[2023-01-24] MEDS: Insulin Lispro 100 UNIT/ML INSULN.PEN SC ×2 (06:47→12:13)
[2023-01-24 07:16] VITALS: BP 137/73; PULSE 66; RESP 18; TEMP 36.7; O2SAT 96
[2023-01-24] MEDS: predniSONE 5 MG Tablet PO (07:42)
[2023-01-24] MEDS: Folic Acid 1 MG Tablet PO (07:42)
[2023-01-24 09:55] VITALS: PULSE 85; RESP 16; O2SAT 95
[2023-01-24 11:20] LABS: Bedside Glucose 297 mg/dL (74-106)
--- NOTE | 2023-01-24 12:22 | NS ---
Nsg reports res with diarrhea/emesis after eating egg salad sandwich. Talked to res about eggs being allergy or intolerance. Res states that her ability to eat them depends on how prepared - runny eggs will make me vomit. She can tolerate eggs if cooked into food item (ie brownie or meatloaf). Res agrees that it may be best to avoid all further eggs except those cooked as part of a recipe for remainder of TCU stay to avoid further issues of diarrhea/emesis. Will notify dietary of this discussion.
--- NOTE | 2023-01-24 12:33 | CON.PCM_ITS ---
Assessment & Plan Assessment/Plan (1) Venous insufficiency (chronic) (peripheral): PLAN: Exam performed Left lower extremity swelling noted Patient receiving Lovenox, no pain. Concern for DVT low. Recommend compression via RENALDO hose. Recommend elevation on pillows. Edema should improve when patient starts ambulating more. Toenails x 10 to bilateral feet were debrided in length and thickness without acute incident using sterile nail nippers. Patient will follow-up outpatient (2) Tinea unguium: (3) Pain in right toe(s): (4) Pain in left toe(s): HPI Consult Data Date of Consult: 01/24/23 HPI Narrative HPI Narrative: DURAN DEVI, is a 72 F who presents painful elongated toenails to bilateral feet. Unable to trim due to left pelvic fracture. As well as proximal humerus fracture. Both being treated conservatively. Patient in TCU for this. Patient does note some left lower extremity which is new since the time of her injury. Denies any calf pain chest pain shortness of breath. No other complaints. [facility] Medical History Chronic anemia Diabetes mellitus, type 2 Former tobacco use HTN (hypertension) Hypothyroidism Rheumatoid arthritis Home Medications folic acid 400 mcg tablet 0.4 mg PO DAILY SUPPLEMENT 03/15/22 [History Last Taken 01/13/23] levothyroxine 150 mcg tablet 150 mcg PO DAILY THYROID 03/15/22 [History Last Taken 01/13/23] losartan 25 mg tablet 25 mg PO DAILY BLOOD PRESSURE 03/15/22 [History Last Taken 01/13/23] magnesium oxide 400 mg PO DAILY SUPPLEMENT 03/15/22 [History Last Taken 01/13/23 ] methotrexate sodium 2.5 mg tablet 12.5 mg PO QWEEK inflammation 03/15/22 [History Last Taken Unknown] prednisone 5 mg tablet 5 mg PO DAILY arthritis 01/10/23 [History Last Taken Unknown] sertraline 25 mg tablet 25 mg PO DAILY depression 01/10/23 [History Last Taken Unknown] insulin detemir U-100 100 unit/mL (3 mL) subcutaneous pen (Levemir FlexPen) 38 unit subcut QHS DMII 01/11/23 [History Last Taken Unknown] acetaminophen 500 mg tablet 1,000 mg (2 x 500 mg) PO Q8 PAIN #0 tabs 01/13/23 [Rx Last Taken 01/13/23] insulin aspart U-100 100 unit/mL (3 mL) subcutaneous pen (Novolog FlexPen U-100 Insulin aspart) 5 unit (0.05 mL) subcut TID glucose control #15 mL 01/13/23 [Rx Last Taken Unknown] insulin lispro 100 unit/mL subcutaneous pen (Humalog KwikPen (U-100) Insulin) See Protocol subcut ACHS DM #0 mL 01/13/23 [Rx Last Taken Unknown] oxycodone 5 mg tablet 5 mg PO Q4H PRN PRN Pain Score 4-10 3 days #12 tabs 01/13/23 [Rx Last Taken 01/12/23] sennosides 8.6 mg-docusate sodium 50 mg tablet (Stool Softener-Stimulant Laxative) 2 tab PO BID PRN PRN Constipation #0 tabs 01/13/23 [Rx Last Taken Unknown] Allergy/AdvReac Type Severity Reaction Status Date / Time egg [eggs] AdvReac Vomiting Verified 01/20/23 09:57 Family History Mother Diabetes Heart disease Father Diabetes Cancer Throat cancer Surgical History H/O: s/p right shoulder surgery Social History household members: spouse Smoking Status: Former smoker alcohol intake: never substance use type: does not use ROS Constitutional Constitutional: Reports lethargy; Denies daytime sleepiness or malaise Eyes Eyes: Denies blind spots, discharge from eye(s) or foreign body ENT HEENT: Denies change in voice, foreign body in nose or mucositis Cardiovascular Cardiovascular: Denies abdominal pain, arrhythmia on telemetry or clubbing Respiratory/Chest Respiratory/Chest: Denies change in phlegm color, chest congestion or dyspnea on exertion Gastrointestinal Gastrointestinal: Denies change in bowel habits, change in stool character, dyspepsia or hemorrhoids Genitourinary Genitourinary: Denies burning urination, change in libido or dysuria Physical Exam Narrative Dorsalis pedis and posterior tibial pulses palpable 2 out of 4 to bilateral feet. Capillary fill time brisk to all digits bilaterally. Digital hair growth noted. Some shiny taut appearance to skin. +1 pitting edema noted to left lower extremity. No pain with calf squeeze or palpation of popliteal fossa. Skin intact no evidence of breakdown. Thickened elongated toenails to digits 1-3 4 and 5 to bilateral feet. Some tenderness to palpation noted. Light touch protective sensation intact bilateral feet. Muscular strength for the bilateral lower extremity compartments. No gross deformity noted. Const alert and oriented x3 Lab / Micro Data 01/21/23 05:15 01/21/23 05:15 Labs: Laboratory Results - last 24 hr 01/23/23 16:15: POC Glucose 314 H 01/23/23 21:11: POC Glucose 276 H 01/24/23 06:13: POC Glucose 122 H 01/24/23 10:55: POC Glucose 297 H
[2023-01-24 13:49] VITALS: BP 155/62; PULSE 81; RESP 16; TEMP 36.4; O2SAT 94
[2023-01-24 17:23] LABS: Bedside Glucose 303 mg/dL (74-106)
[2023-01-24] MEDS: Insulin Lispro 100 UNIT/ML INSULN.PEN 7 UNIT SC (17:45)
[2023-01-24 21:34] LABS: Bacteria 0 SEEN /hpf (None Seen); Mucous, Urine 0 SEEN /hpf (<or=2+); Red Blood Cells-Urine 0 SEEN /hpf (0-5)
[2023-01-24 21:40] LABS: Bedside Glucose 283 mg/dL (74-106)
[2023-01-24 21:49] LABS: Color, Urine Yellow (Yellow); Glucose, Dipstick 1000 mg/dl (Normal); Ketone-Dipstick Negative (Negative); Leukocyte Esterase-Dipstick Negative /ul (Negative); Nitrite-Dipstick Negative (Negative); Occult Blood-Urine 25 /ul (Negative); Protein-Dipstick 30 mg/dl (Negative); Urine Bilirubin Dipstick Negative (Negative); Urine Clarity Clear (Clear); Urine Urobilinogen Normal (Normal)
[2023-01-24] MEDS: Insulin Glargine-YFGN 100 UNIT/ML Pen 30 UNIT SC (21:59)
[2023-01-24] MEDS: Doxepin Hcl 25 MG Capsule PO (22:01)
[2023-01-24 22:12] LABS: Squamous Epithelial Cells - UA 0-5 SEEN /hpf (5-10); White Blood Cells 0-5 SEEN /hpf (0-5)
[2023-01-25] MEDS: Losartan Potassium 25 MG Tablet PO (05:07)
[2023-01-25] MEDS: Enoxaparin 40 MG/0.4 ML Syringe SC (05:07)
[2023-01-25] MEDS: Levothyroxine 150 MCG Tablet PO (05:07)
[2023-01-25] MEDS: Magnesium Chloride 64 MG Delay Rel.Tablet 128 MG PO (05:08)
[2023-01-25] MEDS: Acetaminophen 500 MG Tablet 1000 MG PO ×3 (05:08→20:33)
[2023-01-25] MEDS: Sertraline 50 MG Tablet 25 MG PO (05:08)
[2023-01-25] MEDS: Senna/Docusate Sodium 1 Tablet 2 TABLET PO ×2 (05:08→17:17)
[2023-01-25] MEDS: Ammonium Lactate 225 gm Bottle 1 APPLIC TOPICAL ×2 (05:09→17:21)
[2023-01-25] MEDS: Menthol/Lanolin/Calamine/Znox 113 GM Tube 1 APPLIC TOPICAL ×2 (05:10→17:22)
[2023-01-25 07:39] LABS: Bedside Glucose 128 mg/dL (74-106)
[2023-01-25] MEDS: Folic Acid 1 MG Tablet PO (09:05)
[2023-01-25] MEDS: Insulin Lispro 100 UNIT/ML INSULN.PEN 7 UNIT SC ×3 (09:05→17:18)
[2023-01-25] MEDS: predniSONE 5 MG Tablet PO (09:05)
[2023-01-25 11:20] LABS: Bedside Glucose 229 mg/dL (74-106)
[2023-01-25 14:00] VITALS: BP 118/82; PULSE 86; RESP 16; TEMP 36.2; O2SAT 96
[2023-01-25] MEDS: oxyCODONE 5 MG Tablet PO (14:35)
[2023-01-25 17:24] LABS: Bedside Glucose 329 mg/dL (74-106)
[2023-01-25] MEDS: Doxepin Hcl 25 MG Capsule PO (20:33)
[2023-01-25] MEDS: Insulin Glargine-YFGN 100 UNIT/ML Pen 30 UNIT SC (21:20)
[2023-01-25 21:40] LABS: Bedside Glucose 404 mg/dL (74-106)
[2023-01-26] MEDS: oxyCODONE 5 MG Tablet PO ×2 (00:06→21:15)
[2023-01-26] MEDS: Magnesium Chloride 64 MG Delay Rel.Tablet 128 MG PO (04:26)
[2023-01-26] MEDS: Senna/Docusate Sodium 1 Tablet 2 TABLET PO ×2 (04:26→17:50)
[2023-01-26] MEDS: Acetaminophen 500 MG Tablet 1000 MG PO ×3 (04:26→21:06)
[2023-01-26] MEDS: Levothyroxine 150 MCG Tablet PO (04:27)
[2023-01-26] MEDS: Losartan Potassium 25 MG Tablet PO (04:27)
[2023-01-26] MEDS: Sertraline 50 MG Tablet 25 MG PO (04:27)
[2023-01-26] MEDS: Enoxaparin 40 MG/0.4 ML Syringe SC (04:29)
[2023-01-26] MEDS: Menthol/Lanolin/Calamine/Znox 113 GM Tube 1 APPLIC TOPICAL ×2 (04:32→17:50)
[2023-01-26 06:46] LABS: Bedside Glucose 54 mg/dL (74-106)
--- NOTE | 2023-01-26 07:50 | NURSING ---
AM blood sugar was 52. DATA CENTER CONSULTANT gave orange juice and Lornadones, then notified this nurse. Pt asymptomatic. Upon recheck, blood sugar was 108.
[2023-01-26 08:01] LABS: Bedside Glucose 108 mg/dL (74-106)
[2023-01-26] MEDS: Insulin Lispro 100 UNIT/ML INSULN.PEN 7 UNIT SC ×2 (08:45→12:25)
[2023-01-26] MEDS: predniSONE 5 MG Tablet PO (08:45)
[2023-01-26] MEDS: Folic Acid 1 MG Tablet PO (08:45)
[2023-01-26 11:55] LABS: Bedside Glucose 152 mg/dL (74-106)
[2023-01-26 14:00] VITALS: BP 125/64; PULSE 77; RESP 14; TEMP 36.1; O2SAT 96
[2023-01-26 17:23] LABS: Bedside Glucose 119 mg/dL (74-106)
[2023-01-26] MEDS: Ammonium Lactate 225 gm Bottle 1 APPLIC TOPICAL (17:50)
[2023-01-26] MEDS: Doxepin Hcl 25 MG Capsule PO (21:06)
[2023-01-26] MEDS: Insulin Glargine-YFGN 100 UNIT/ML Pen 30 UNIT SC (21:09)
[2023-01-26 21:41] LABS: Bedside Glucose 240 mg/dL (74-106)
[2023-01-27 02:13] VITALS: O2SAT 94
[2023-01-27] MEDS: Enoxaparin 40 MG/0.4 ML Syringe SC (05:26)
[2023-01-27] MEDS: Sertraline 50 MG Tablet 25 MG PO (05:27)
[2023-01-27] MEDS: Methotrexate 2.5 MG Tablet 12.5 MG PO (05:27)
[2023-01-27] MEDS: Acetaminophen 500 MG Tablet 1000 MG PO ×3 (05:28→21:25)
[2023-01-27] MEDS: Magnesium Chloride 64 MG Delay Rel.Tablet 128 MG PO (05:28)
[2023-01-27] MEDS: Senna/Docusate Sodium 1 Tablet 2 TABLET PO ×2 (05:28→17:51)
[2023-01-27] MEDS: Levothyroxine 150 MCG Tablet PO (05:28)
[2023-01-27] MEDS: Losartan Potassium 25 MG Tablet PO (05:28)
[2023-01-27] MEDS: Ammonium Lactate 225 gm Bottle 1 APPLIC TOPICAL ×2 (05:29→21:26)
[2023-01-27] MEDS: Menthol/Lanolin/Calamine/Znox 113 GM Tube 1 APPLIC TOPICAL ×2 (05:29→17:51)
[2023-01-27 06:55] LABS: Bedside Glucose 88 mg/dL (74-106)
[2023-01-27] MEDS: Folic Acid 1 MG Tablet PO (08:01)
[2023-01-27] MEDS: predniSONE 5 MG Tablet PO (08:02)
[2023-01-27 10:00] VITALS: PULSE 70; RESP 18; O2SAT 96
[2023-01-27] MEDS: Insulin Lispro 100 UNIT/ML INSULN.PEN SC ×2 (11:54→17:50)
[2023-01-27 11:58] LABS: Bedside Glucose 223 mg/dL (74-106)
[2023-01-27 13:37] VITALS: BP 156/65; PULSE 82; RESP 16; TEMP 36.2; O2SAT 95
[2023-01-27 17:43] LABS: Bedside Glucose 373 mg/dL (74-106)
[2023-01-27] MEDS: Doxepin Hcl 25 MG Capsule PO (21:25)
[2023-01-27] MEDS: Insulin Glargine-YFGN 100 UNIT/ML Pen 25 UNIT SC (21:32)
[2023-01-27 21:36] LABS: Bedside Glucose 297 mg/dL (74-106)
[2023-01-27] MEDS: oxyCODONE 5 MG Tablet PO (22:54)
[2023-01-28 05:47] LABS: Absolute Lymphocyte Count 2.26 X10^3/uL (0.83-4.51); Absolute Neutrophil Count 7.2 X10^3/uL (2.0-7.7); Basophil# 0.16 X10^3/uL; Basophil% 1.5 % (0-1); Eosinophil# 0.22 X10^3/uL; Eosinophils% 2.1 % (0-5); Hematocrit 35.3 % (37-47); Hemoglobin 11.2 g/dL (12.0-15.0); Lymphocyte # 2.26 X10^3/ul (0.83-4.51); Lymphocyte % 21.6 % (19-41); Mean Corp Hgb Conc 31.7 g/dL (32-36); Mean Corpuscular Hgb 27.3 pg (27.0-32.0); Mean Corpuscular Volume 86.1 fL (81-99); Mean Platelet Vol. 10.5 fl (6.2-12.0); Monocyte# 0.58 X10^3/uL; Monocyte% 5.6 % (0-10); NRBC Flagged by Analyzer 0 % (0-5); Neutrophil # 7.16 X10^3/uL (2.7-7.7); Neutrophil % 68.5 % (47-70); Platelet Count 452 K/mm3 (150-450); RBC Distribution Width CV 15.2 % (11.6-14.6); White Blood Count 10.5 K/mm3 (4.4-11.0)
[2023-01-28] MEDS: Enoxaparin 40 MG/0.4 ML Syringe SC (06:11)
[2023-01-28] MEDS: Magnesium Chloride 64 MG Delay Rel.Tablet 128 MG PO (06:12)
[2023-01-28] MEDS: Acetaminophen 500 MG Tablet 1000 MG PO ×3 (06:12→21:53)
[2023-01-28] MEDS: Sertraline 50 MG Tablet 25 MG PO (06:14)
[2023-01-28] MEDS: Levothyroxine 150 MCG Tablet PO (06:15)
[2023-01-28] MEDS: Losartan Potassium 25 MG Tablet PO (06:15)
[2023-01-28] MEDS: Senna/Docusate Sodium 1 Tablet 2 TABLET PO ×2 (06:19→17:54)
[2023-01-28] MEDS: Ammonium Lactate 225 gm Bottle 1 APPLIC TOPICAL ×2 (06:19→17:56)
[2023-01-28] MEDS: Menthol/Lanolin/Calamine/Znox 113 GM Tube 1 APPLIC TOPICAL ×2 (06:20→17:57)
[2023-01-28 06:24] VITALS: BP 144/76; PULSE 68; RESP 16; TEMP 36.6; O2SAT 95
[2023-01-28 06:30] LABS: Anion Gap 8 (5-15); BUN 11 mg/dL (7-18); BUN/Creat Ratio 24.1 RATIO (10-20); Calcium,Total 9.2 mg/dL (8.5-10.1); Chloride 96 mmol/L (98-107); Creatinine, Serum 0.46 mg/dL (0.55-1.02); EST Glomerular Filtration Rate 144 mL/min (>60); Est Glom Filt Rate - Afr Amer 174 mL/min (>60); Glucose 231 mg/dL (74-106); Sodium Level 131 mmol/L (136-145)
[2023-01-28 06:32] LABS: Bedside Glucose 238 mg/dL (74-106)
[2023-01-28] MEDS: Insulin Lispro 100 UNIT/ML INSULN.PEN SC ×3 (08:01→17:53)
[2023-01-28] MEDS: predniSONE 5 MG Tablet PO (08:02)
[2023-01-28] MEDS: Folic Acid 1 MG Tablet PO (08:02)
[2023-01-28 10:31] VITALS: BMI 22.1
[2023-01-28 11:08] LABS: Bedside Glucose 318 mg/dL (74-106)
[2023-01-28 14:00] VITALS: BP 150/69; PULSE 78; RESP 16; TEMP 37.4; O2SAT 97
[2023-01-28 17:11] LABS: Bedside Glucose 311 mg/dL (74-106)
[2023-01-28 21:50] LABS: Bedside Glucose 341 mg/dL (74-106)
[2023-01-28] MEDS: Doxepin Hcl 25 MG Capsule PO (21:52)
[2023-01-28] MEDS: Insulin Glargine-YFGN 100 UNIT/ML Pen 25 UNIT SC (21:52)
[2023-01-28 21:56] VITALS: PULSE 89; RESP 16; O2SAT 96
--- NOTE | 2023-01-28 23:09 | NURSING ---
PT NOTED THAT SHE STARTED A DRY COUGH TODAY, SAT 96% ON RA. DENIES SOB. NO SPUTUM. LUNGS WITH CRACKLES IN BILAT BASES POSTERIORLY. MESSAGE LEFT FOR DR DIXON.
[2023-01-29] MEDS: Enoxaparin 40 MG/0.4 ML Syringe SC (05:46)
[2023-01-29] MEDS: Sertraline 50 MG Tablet 25 MG PO (05:48)
[2023-01-29] MEDS: Magnesium Chloride 64 MG Delay Rel.Tablet 128 MG PO (05:48)
[2023-01-29] MEDS: Losartan Potassium 25 MG Tablet PO (05:48)
[2023-01-29] MEDS: Levothyroxine 150 MCG Tablet PO (05:49)
[2023-01-29 05:56] VITALS: BP 171/75; PULSE 75; RESP 18; O2SAT 95
[2023-01-29 06:40] LABS: Bedside Glucose 175 mg/dL (74-106)
--- NOTE | 2023-01-29 08:09 | RAD_ITS ---
STUDY: X-RAY CHEST REASON FOR EXAM: Female, 72 years old. Left arm pain. TECHNIQUE: Single AP portable view of the chest. COMPARISON: Comparison is made with prior study dated January 13, 2023. FINDINGS: Mild increased interstitial markings at the lung bases suggestive of scarring and/or atelectasis. There is no demonstrated pleural abnormality. Normal size heart. Normal mediastinum and batool. Normal visualized pulmonary arteries. There is atherosclerotic tortuosity of the aortic arch and descending thoracic aorta. There are diffuse degenerative changes of the visualized thoracic spine. 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 There is no demonstrated abnormality of the visualized soft tissue structures of the upper abdomen. RAD/Chest PA and Lateral IMPRESSION: Mild increased markings at the lung bases suggestive of atelectasis and/or scarring. Electronically Signed: Pablo Sarmiento MD at 12:59 EDT ,
[2023-01-29] MEDS: Folic Acid 1 MG Tablet PO (08:38)
[2023-01-29] MEDS: Insulin Lispro 100 UNIT/ML INSULN.PEN SC ×3 (08:38→17:57)
[2023-01-29] MEDS: predniSONE 5 MG Tablet PO (08:39)
[2023-01-29] MEDS: Azithromycin 250 MG Tablet 500 MG PO (08:39)
[2023-01-29] MEDS: Losartan Potassium 100 MG Tablet PO (08:39)
[2023-01-29] MEDS: Ammonium Lactate 225 gm Bottle 1 APPLIC TOPICAL ×2 (08:43→17:59)
[2023-01-29] MEDS: Menthol/Lanolin/Calamine/Znox 113 GM Tube 1 APPLIC TOPICAL ×2 (08:44→18:00)
[2023-01-29 11:17] LABS: Bedside Glucose 257 mg/dL (74-106)
[2023-01-29] MEDS: Acetaminophen 500 MG Tablet 1000 MG PO ×2 (13:45→21:33)
[2023-01-29 13:59] VITALS: BP 136/70; PULSE 75; RESP 16; TEMP 36.4; O2SAT 97
[2023-01-29 16:19] LABS: Bedside Glucose 282 mg/dL (74-106)
[2023-01-29] MEDS: Senna/Docusate Sodium 1 Tablet 2 TABLET PO (17:56)
[2023-01-29] MEDS: Doxepin Hcl 25 MG Capsule PO (21:33)
[2023-01-29] MEDS: Insulin Glargine-YFGN 100 UNIT/ML Pen 25 UNIT SC (21:34)
[2023-01-29 21:56] LABS: Bedside Glucose 326 mg/dL (74-106)
[2023-01-30] MEDS: Enoxaparin 40 MG/0.4 ML Syringe SC (05:56)
[2023-01-30] MEDS: Menthol/Lanolin/Calamine/Znox 113 GM Tube 1 APPLIC TOPICAL ×2 (05:56→17:45)
[2023-01-30] MEDS: Magnesium Chloride 64 MG Delay Rel.Tablet 128 MG PO (05:57)
[2023-01-30] MEDS: Sertraline 50 MG Tablet 25 MG PO (05:57)
[2023-01-30] MEDS: Senna/Docusate Sodium 1 Tablet 2 TABLET PO ×2 (05:57→17:45)
[2023-01-30] MEDS: Acetaminophen 500 MG Tablet 1000 MG PO ×3 (05:57→21:25)
[2023-01-30] MEDS: Levothyroxine 150 MCG Tablet PO (05:58)
[2023-01-30] MEDS: Losartan Potassium 100 MG Tablet PO (05:58)
[2023-01-30 06:39] LABS: Bedside Glucose 229 mg/dL (74-106)
[2023-01-30] MEDS: Insulin Lispro 100 UNIT/ML INSULN.PEN 10 UNIT SC ×3 (07:54→17:42)
[2023-01-30] MEDS: Folic Acid 1 MG Tablet PO (07:56)
[2023-01-30] MEDS: predniSONE 5 MG Tablet PO (07:57)
[2023-01-30] MEDS: Azithromycin 250 MG Tablet PO (10:39)
[2023-01-30] MEDS: Ammonium Lactate 225 gm Bottle 1 APPLIC TOPICAL (10:39)
[2023-01-30 11:15] LABS: Bedside Glucose 245 mg/dL (74-106)
[2023-01-30 15:32] VITALS: BP 128/66; PULSE 71; RESP 16; TEMP 36.1; O2SAT 96
[2023-01-30 16:39] LABS: Bedside Glucose 279 mg/dL (74-106)
[2023-01-30] MEDS: Doxepin Hcl 25 MG Capsule PO (21:25)
[2023-01-30 21:28] LABS: Bedside Glucose 219 mg/dL (74-106)
[2023-01-30] MEDS: Insulin Glargine-YFGN 100 UNIT/ML Pen 30 UNIT SC (21:40)
[2023-01-30 21:43] VITALS: O2SAT 96
[2023-01-31] MEDS: Enoxaparin 40 MG/0.4 ML Syringe SC (05:23)
[2023-01-31] MEDS: Levothyroxine 150 MCG Tablet PO (05:23)
[2023-01-31] MEDS: Losartan Potassium 100 MG Tablet PO (05:24)
[2023-01-31] MEDS: Sertraline 50 MG Tablet 25 MG PO (05:24)
[2023-01-31] MEDS: Acetaminophen 500 MG Tablet 1000 MG PO ×3 (05:24→20:36)
[2023-01-31] MEDS: Senna/Docusate Sodium 1 Tablet 2 TABLET PO ×2 (05:24→17:41)
[2023-01-31] MEDS: Magnesium Chloride 64 MG Delay Rel.Tablet 128 MG PO (05:25)
[2023-01-31] MEDS: Menthol/Lanolin/Calamine/Znox 113 GM Tube 1 APPLIC TOPICAL ×2 (05:26→17:47)
[2023-01-31 06:30] LABS: Bedside Glucose 163 mg/dL (74-106)
[2023-01-31] MEDS: Folic Acid 1 MG Tablet PO (08:09)
[2023-01-31] MEDS: Azithromycin 250 MG Tablet PO (08:09)
[2023-01-31] MEDS: Insulin Lispro 100 UNIT/ML INSULN.PEN 10 UNIT SC ×3 (08:09→17:42)
[2023-01-31] MEDS: predniSONE 5 MG Tablet PO (08:09)
[2023-01-31 11:42] LABS: Bedside Glucose 221 mg/dL (74-106)
[2023-01-31 15:17] VITALS: BP 130/68; PULSE 69; RESP 14; TEMP 36.3; O2SAT 97
[2023-01-31 17:19] LABS: Bedside Glucose 242 mg/dL (74-106)
[2023-01-31] MEDS: Ammonium Lactate 225 gm Bottle 1 APPLIC TOPICAL (17:46)
[2023-01-31] MEDS: Doxepin Hcl 25 MG Capsule PO (20:36)
[2023-01-31] MEDS: Insulin Glargine-YFGN 100 UNIT/ML Pen 30 UNIT SC (20:39)
[2023-01-31 20:59] LABS: Bedside Glucose 174 mg/dL (74-106)
[2023-01-31] MEDS: oxyCODONE 5 MG Tablet PO (23:12)
[2023-02-01] MEDS: oxyCODONE 5 MG Tablet PO ×2 (04:12→10:07)
[2023-02-01] MEDS: Senna/Docusate Sodium 1 Tablet 2 TABLET PO (04:12)
[2023-02-01] MEDS: Enoxaparin 40 MG/0.4 ML Syringe SC (04:15)
[2023-02-01] MEDS: Acetaminophen 500 MG Tablet 1000 MG PO ×3 (04:16→20:35)
[2023-02-01] MEDS: Losartan Potassium 100 MG Tablet PO (04:17)
[2023-02-01] MEDS: Levothyroxine 150 MCG Tablet PO (04:17)
[2023-02-01] MEDS: Magnesium Chloride 64 MG Delay Rel.Tablet 128 MG PO (04:17)
[2023-02-01] MEDS: Sertraline 50 MG Tablet 25 MG PO (04:17)
[2023-02-01] MEDS: Ammonium Lactate 225 gm Bottle 1 APPLIC TOPICAL ×2 (04:18→17:41)
[2023-02-01] MEDS: Menthol/Lanolin/Calamine/Znox 113 GM Tube 1 APPLIC TOPICAL ×2 (04:18→17:40)
[2023-02-01 07:17] LABS: Bedside Glucose 384 mg/dL (74-106)
[2023-02-01] MEDS: predniSONE 5 MG Tablet PO (07:47)
[2023-02-01] MEDS: Azithromycin 250 MG Tablet PO (07:48)
[2023-02-01] MEDS: Folic Acid 1 MG Tablet PO (07:48)
[2023-02-01] MEDS: Insulin Lispro 100 UNIT/ML INSULN.PEN 10 UNIT SC ×4 (07:49→17:39)
[2023-02-01 10:46] LABS: Bedside Glucose 429 mg/dL (74-106)
[2023-02-01 14:02] VITALS: BP 159/73; PULSE 97; RESP 17; TEMP 36.5; O2SAT 92
[2023-02-01 16:28] LABS: Bedside Glucose 126 mg/dL (74-106)
[2023-02-01] MEDS: Doxepin Hcl 25 MG Capsule PO (20:35)
[2023-02-01 20:41] VITALS: PULSE 94; RESP 18; O2SAT 97
[2023-02-01 21:47] LABS: Bedside Glucose 323 mg/dL (74-106)
[2023-02-01] MEDS: Insulin Glargine-YFGN 100 UNIT/ML Pen 30 UNIT SC (22:13)
[2023-02-02] MEDS: Acetaminophen 500 MG Tablet 1000 MG PO ×3 (05:23→20:46)
[2023-02-02] MEDS: Senna/Docusate Sodium 1 Tablet 2 TABLET PO (05:23)
[2023-02-02] MEDS: Sertraline 50 MG Tablet 25 MG PO (05:24)
[2023-02-02] MEDS: Levothyroxine 150 MCG Tablet PO (05:24)
[2023-02-02] MEDS: Magnesium Chloride 64 MG Delay Rel.Tablet 128 MG PO (05:24)
[2023-02-02] MEDS: Losartan Potassium 100 MG Tablet PO (05:24)
[2023-02-02] MEDS: Enoxaparin 40 MG/0.4 ML Syringe SC (05:24)
[2023-02-02] MEDS: Menthol/Lanolin/Calamine/Znox 113 GM Tube 1 APPLIC TOPICAL ×2 (05:25→17:31)
[2023-02-02] MEDS: Ammonium Lactate 225 gm Bottle 1 APPLIC TOPICAL ×2 (05:25→17:31)
[2023-02-02 06:34] LABS: Bedside Glucose 218 mg/dL (74-106)
[2023-02-02] MEDS: predniSONE 5 MG Tablet PO (08:33)
[2023-02-02] MEDS: Folic Acid 1 MG Tablet PO (08:34)
[2023-02-02] MEDS: Insulin Lispro 100 UNIT/ML INSULN.PEN 12 UNIT SC ×3 (08:35→17:29)
[2023-02-02] MEDS: Azithromycin 250 MG Tablet PO (08:35)
[2023-02-02 11:07] LABS: Bedside Glucose 272 mg/dL (74-106)
[2023-02-02 14:47] VITALS: BP 155/87; PULSE 93; RESP 16; TEMP 36.9; O2SAT 97
[2023-02-02 16:16] LABS: Bedside Glucose 130 mg/dL (74-106)
[2023-02-02 20:16] LABS: Bedside Glucose 52 mg/dL (74-106)
--- NOTE | 2023-02-02 20:29 | NURSING ---
BS at 54 with c/o lightheadedness provided HS snacks and juice will recheck for f/u
[2023-02-02] MEDS: Doxepin Hcl 25 MG Capsule PO (20:46)
[2023-02-02 21:00] VITALS: PULSE 82; RESP 16; O2SAT 95
[2023-02-02 21:22] LABS: Bedside Glucose 97 mg/dL (74-106)
[2023-02-03] MEDS: oxyCODONE 5 MG Tablet PO (04:01)
[2023-02-03] MEDS: Ammonium Lactate 225 gm Bottle 1 APPLIC TOPICAL ×2 (04:46→17:19)
[2023-02-03] MEDS: Menthol/Lanolin/Calamine/Znox 113 GM Tube 1 APPLIC TOPICAL ×2 (04:46→17:19)
[2023-02-03] MEDS: Acetaminophen 500 MG Tablet 1000 MG PO ×3 (04:49→20:27)
[2023-02-03] MEDS: Senna/Docusate Sodium 1 Tablet 2 TABLET PO (04:49)
[2023-02-03] MEDS: Magnesium Chloride 64 MG Delay Rel.Tablet 128 MG PO (04:49)
[2023-02-03] MEDS: Enoxaparin 40 MG/0.4 ML Syringe SC (04:49)
[2023-02-03] MEDS: Levothyroxine 150 MCG Tablet PO (04:50)
[2023-02-03] MEDS: Losartan Potassium 100 MG Tablet PO (04:50)
[2023-02-03] MEDS: Sertraline 50 MG Tablet 25 MG PO (04:50)
[2023-02-03] MEDS: Methotrexate 2.5 MG Tablet 12.5 MG PO (04:51)
--- NOTE | 2023-02-03 04:58 | NURSING ---
Pt stated while ambulating to the restroom that she was thinking she would be better off to just in her sleep. This nurse asked her if she had a plan or intentions of suicide she stated no, that anyone in her position should be depressed every now and then. Having trouble with home life and managing mobility decline. Provided 1:1, emotional support, fluids.Pt was laughing and joking by the end of conversation with this nurse RN aware and obtaining suicidal assessment.
[2023-02-03 06:41] LABS: Bedside Glucose 231 mg/dL (74-106)
[2023-02-03] MEDS: Insulin Lispro 100 UNIT/ML INSULN.PEN 12 UNIT SC ×3 (08:16→17:18)
[2023-02-03] MEDS: Azithromycin 250 MG Tablet PO (08:17)
[2023-02-03] MEDS: Folic Acid 1 MG Tablet PO (08:17)
[2023-02-03] MEDS: predniSONE 5 MG Tablet PO (08:17)
[2023-02-03 11:09] LABS: Bedside Glucose 272 mg/dL (74-106)
--- NOTE | 2023-02-03 11:30 | CASEMGMT ---
Social Work SW met with pt and discussed mood and feeling of being better off Pt admits to not sleeping well and when this happens she has feelings of depression. Pt states that now that it is the day time and she has gotten some rest her mood is improved. Pt denies any thoughts of Suicidal Ideation but frustration and depression during the night while she is lying awak. Emotional support provided and discussed feelings. Pt also requesting to return home soon. SW updated that team meeting would be held tomorrow and pt status with therapy and ability to return home now would be discussed. Pt agreeable to speak with SW after meeting on Friday. PANFILO Najera
[2023-02-03 13:29] VITALS: BP 101/48; PULSE 72; RESP 16; TEMP 36.3; O2SAT 97
[2023-02-03 16:52] LABS: Bedside Glucose 230 mg/dL (74-106)
[2023-02-03] MEDS: Insulin Glargine-YFGN 100 UNIT/ML Pen 35 UNIT SC (20:25)
[2023-02-03] MEDS: Doxepin Hcl 25 MG Capsule PO (20:27)
[2023-02-03 21:16] LABS: Bedside Glucose 246 mg/dL (74-106)
[2023-02-03 21:50] LABS: Bedside Glucose 229 mg/dL (74-106)
[2023-02-04 06:07] LABS: Absolute Lymphocyte Count 2.82 X10^3/uL (0.83-4.51); Absolute Neutrophil Count 5.4 X10^3/uL (2.0-7.7); Basophil# 0.16 X10^3/uL; Basophil% 1.7 % (0-1); Eosinophil# 0.44 X10^3/uL; Eosinophils% 4.7 % (0-5); Hematocrit 33.5 % (37-47); Hemoglobin 10.6 g/dL (12.0-15.0); Lymphocyte # 2.82 X10^3/ul (0.83-4.51); Lymphocyte % 29.8 % (19-41); Mean Corp Hgb Conc 31.6 g/dL (32-36); Mean Corpuscular Hgb 27.7 pg (27.0-32.0); Mean Corpuscular Volume 87.7 fL (81-99); Mean Platelet Vol. 10.9 fl (6.2-12.0); Monocyte# 0.57 X10^3/uL; NRBC Flagged by Analyzer 0 % (0-5); Neutrophil % 57.2 % (47-70); Platelet Count 420 K/mm3 (150-450); RBC Distribution Width CV 15.6 % (11.6-14.6); RBC Distribution Width SD 50.4 fl (35.1-43.9); Red Blood Count 3.82 M/mm3 (4.2-5.4); White Blood Count 9.5 K/mm3 (4.4-11.0)
[2023-02-04] MEDS: Acetaminophen 500 MG Tablet 1000 MG PO ×3 (06:22→20:48)
[2023-02-04] MEDS: Sertraline 50 MG Tablet 25 MG PO (06:23)
[2023-02-04] MEDS: Losartan Potassium 100 MG Tablet PO (06:23)
[2023-02-04] MEDS: Enoxaparin 40 MG/0.4 ML Syringe SC (06:23)
[2023-02-04] MEDS: Levothyroxine 150 MCG Tablet PO (06:23)
[2023-02-04] MEDS: Senna/Docusate Sodium 1 Tablet 2 TABLET PO ×2 (06:23→17:45)
[2023-02-04] MEDS: Magnesium Chloride 64 MG Delay Rel.Tablet 128 MG PO (06:23)
[2023-02-04] MEDS: Menthol/Lanolin/Calamine/Znox 113 GM Tube 1 APPLIC TOPICAL ×2 (06:24→17:47)
[2023-02-04] MEDS: Ammonium Lactate 225 gm Bottle 1 APPLIC TOPICAL ×2 (06:33→20:52)
[2023-02-04 06:55] LABS: Anion Gap 7 (5-15); BUN 13 mg/dL (7-18); BUN/Creat Ratio 31.7 RATIO (10-20); Calcium,Total 9.1 mg/dL (8.5-10.1); Chloride 101 mmol/L (98-107); Creatinine, Serum 0.41 mg/dL (0.55-1.02); EST Glomerular Filtration Rate 163 mL/min (>60); Est Glom Filt Rate - Afr Amer 197 mL/min (>60); Glucose 158 mg/dL (74-106); Sodium Level 135 mmol/L (136-145)
[2023-02-04 06:57] LABS: Bedside Glucose 163 mg/dL (74-106)
[2023-02-04] MEDS: Insulin Lispro 100 UNIT/ML INSULN.PEN 12 UNIT SC ×3 (08:19→17:45)
[2023-02-04] MEDS: predniSONE 5 MG Tablet PO (08:21)
[2023-02-04] MEDS: Folic Acid 1 MG Tablet PO (08:21)
[2023-02-04] MEDS: oxyCODONE 5 MG Tablet PO ×2 (10:29→20:48)
[2023-02-04 10:54] VITALS: BMI 22.6
[2023-02-04 11:34] LABS: Bedside Glucose 271 mg/dL (74-106)
[2023-02-04 14:37] VITALS: BP 133/64; PULSE 75; RESP 16; TEMP 36.3; O2SAT 94
[2023-02-04 16:51] LABS: Bedside Glucose 160 mg/dL (74-106)
--- NOTE | 2023-02-04 17:02 | CASEMGMT ---
Social Work SW met with team. Pt making slow progress with therapy. Able to ambulate 200 ft CGA and transfer at Min A. Upper Body bathing/dressing min A and lower body Max A. Pt is not yet ready to return home with spouse who also has health issues. Therapy to reach out to family to arrange for family training. SW met with pt and explained above information. Pt agreeable to continued stay and family training. Pt states she is trying to think of someone who can assist at home. SW provided list of Private Duty Aids. SW to continue to follow for d/c planning. PANFILO Najera
[2023-02-04] MEDS: Doxepin Hcl 25 MG Capsule PO (20:49)
[2023-02-04] MEDS: Insulin Glargine-YFGN 100 UNIT/ML Pen 35 UNIT SC (20:52)
[2023-02-04 21:16] LABS: Bedside Glucose 95 mg/dL (74-106)
[2023-02-04 21:30] VITALS: O2SAT 95
[2023-02-05 02:18] LABS: Bedside Glucose 166 mg/dL (74-106)
[2023-02-05] MEDS: Senna/Docusate Sodium 1 Tablet 2 TABLET PO (04:57)
[2023-02-05] MEDS: Sertraline 50 MG Tablet 25 MG PO (04:58)
[2023-02-05] MEDS: Losartan Potassium 100 MG Tablet PO (04:58)
[2023-02-05] MEDS: Levothyroxine 150 MCG Tablet PO (04:58)
[2023-02-05] MEDS: Magnesium Chloride 64 MG Delay Rel.Tablet 128 MG PO (04:58)
[2023-02-05] MEDS: Enoxaparin 40 MG/0.4 ML Syringe SC (04:58)
[2023-02-05] MEDS: Acetaminophen 500 MG Tablet 1000 MG PO ×3 (04:59→20:58)
[2023-02-05] MEDS: Menthol/Lanolin/Calamine/Znox 113 GM Tube 1 APPLIC TOPICAL ×2 (04:59→17:16)
[2023-02-05] MEDS: Ammonium Lactate 225 gm Bottle 1 APPLIC TOPICAL ×2 (05:01→17:18)
[2023-02-05 06:29] LABS: Bedside Glucose 116 mg/dL (74-106)
[2023-02-05] MEDS: Insulin Lispro 100 UNIT/ML INSULN.PEN 12 UNIT SC ×2 (08:01→17:14)
[2023-02-05] MEDS: Folic Acid 1 MG Tablet PO (08:03)
[2023-02-05] MEDS: predniSONE 5 MG Tablet PO (08:03)
[2023-02-05 09:10] VITALS: PULSE 71; RESP 16; O2SAT 97
--- NOTE | 2023-02-05 11:28 | NURSING ---
WIRE FENCE BUILDER NOTIFIED THIS NURSE THAT PT STATED THAT SHE FELT HUNGRY AND LIGHT HEADED. BLOOD SUGAR CHECKED AND WAS 56. JUICE,COOKIES AND PEANUT BUTTER WITH CRACKERS GIVEN. WILL CONTINUE TO MONITOR. RN AWARE
[2023-02-05 11:55] LABS: Bedside Glucose 56 mg/dL (74-106)
[2023-02-05 12:14] LABS: Bedside Glucose 134 mg/dL (74-106)
--- NOTE | 2023-02-05 13:20 | NURSING ---
THIS NURSE INTO PT ROOM AND PT STATED DID MY ? STATED TO PT THAT I HAVE NOT HEARD THAT ANY THING WAS WRONG AND ASKED PT TO TELL ME WHAT WAS GOING ON. PT STATED HER WAS IN A HOSPITAL IN [place] AND NOT DOING WELL. ASKED PT IF SHE HAD TALKED TO ANY ONE IN THE FAMILY AND PT STATED NO. THIS NURSE HELPED PT CALL FAMILY MEMBER AND FAMILY EXPLAINED TO BOTH OF US ON SPEAKER PHONE THAT PT WAS NOT DOING WELL AND HAD A SURGERY AND WOULDN'T MAKE IT IF HE HAD ANOTHER ONE. ONE SON IS ON HIS WAY TO [place] PER FAMILY MEMBER. FAMILY MEMBER STATED TO PT TO KEEP HER PHONE ON . THIS NURSE STATED TO FAMILY THAT THEY COULD ALSO CALL THE NURSES DESK IF THEY COULD NOT GET A HOLD OF PT. ASKED PT IF SHE NEEDED ANYTHING PT STATED NO. STATED TO PT IF SHE NEEDED ANYTHING TO PLEASE LET US KNOW. ALL STAFF PLEASE MAKE SURE PT CELL PHONE IS ON,CHARGED AND VOLUME UP DUE TO PT SOME TIMES HAS TROUBLE OPERATING CELL PHONE. RN AND JANNETTE,SUPERVISOR OF RESEARCH AWARE.
--- NOTE | 2023-02-05 14:38 | CHAPLAIN ---
Type of Pastoral Visit ___ Initial Visit _x__ Follow-up Visit ___ On-call Visit ___ General Patient Visit ___ Spiritual Assessment ___ Family Conference ___ Bereavement ___ Rapid Response ___ Code Blue ___ Other (describe below) Pastoral Care Referral From ___ Patient ___ Family ___ Nurse ___ Physician ___ Violin Tutor ___ Colorer Machine _x__ Other (describe below) Sacrament/Intervention _x__ Active listening ___ Anointing ___ Holiness ___ Bereavement ___ Communion ___ Natacha exploration ___ ___ Life review _x__ Prayer ___ Reconciliation ___ Sacrament of Sick _x__ Supportive presence ___ Wedding ___ Other (describe below) Pastoral Comments notified by staff that patient's spouse was taken to the hospital and was not doing well; met with patient and sat beside her to listen to her tell what she knew and to express how she was feeling; pt states that I guess we are just falling apart but continues on with comments of hope for a good outcome; pt talks about her needs for going home and having the help she needs there; offer of presence and support; pt welcomes prayer for self and her ; pt states no other needs and has little to say at this time; as this general practitioner was leaving room the pt received a phone call update from her son about her
[2023-02-05 15:29] VITALS: BP 147/75; PULSE 81; RESP 16; TEMP 36.3; O2SAT 96
--- NOTE | 2023-02-05 16:59 | NURSING ---
WENT INTO PT ROOM AND FOUND PT CRYING. ASKED PT WHAT WAS WRONG PT STATED MY . GAVE MY CONDOLENCES AND ASKED IF HER SON CALLED AND PT STATED NO MY SISTER. ASKED PT IF I COULD DO ANY THING OR ANY ONE I COULD CALL FOR HER PT STATED NO. GOT PT COFFEE AND SUGAR FREE JELLO. PT THANKED THIS NURSE. THIS NURSE THEN UPDATED Jonnathan BHATIA AND HAD ME CALL THE SON. THIS NURSE CALLED THE SON AND THE SON STATED NO HIS DAD WAS STILL ALIVE AND WILL HAVE HIS BROTHER OR HIM CALL THERE MOM. LEFT MESSAGE FOR Jonnathan BHATIA AND RN AWARE.
[2023-02-05 17:01] LABS: Bedside Glucose 411 mg/dL (74-106)
[2023-02-05] MEDS: Insulin Lispro 100 UNIT/ML INSULN.PEN SC (18:29)
[2023-02-05] MEDS: oxyCODONE 5 MG Tablet PO (20:55)
[2023-02-05] MEDS: Insulin Glargine-YFGN 100 UNIT/ML Pen 30 UNIT SC (20:57)
[2023-02-05] MEDS: Doxepin Hcl 25 MG Capsule PO (20:59)
[2023-02-05 21:21] LABS: Bedside Glucose 183 mg/dL (74-106)
[2023-02-06] MEDS: Enoxaparin 40 MG/0.4 ML Syringe SC (05:54)
[2023-02-06] MEDS: Magnesium Chloride 64 MG Delay Rel.Tablet 128 MG PO (05:54)
[2023-02-06] MEDS: Acetaminophen 500 MG Tablet 1000 MG PO ×3 (05:54→20:50)
[2023-02-06] MEDS: Senna/Docusate Sodium 1 Tablet 2 TABLET PO (05:55)
[2023-02-06] MEDS: Losartan Potassium 100 MG Tablet PO (05:55)
[2023-02-06] MEDS: Levothyroxine 150 MCG Tablet PO (05:55)
[2023-02-06] MEDS: Sertraline 50 MG Tablet 25 MG PO (05:55)
[2023-02-06] MEDS: Menthol/Lanolin/Calamine/Znox 113 GM Tube 1 APPLIC TOPICAL ×2 (05:56→18:14)
[2023-02-06] MEDS: Ammonium Lactate 225 gm Bottle 1 APPLIC TOPICAL ×2 (05:57→18:13)
[2023-02-06 06:36] LABS: Bedside Glucose 87 mg/dL (74-106)
[2023-02-06] MEDS: Folic Acid 1 MG Tablet PO (08:24)
[2023-02-06] MEDS: predniSONE 5 MG Tablet PO (08:24)
[2023-02-06 11:23] LABS: Bedside Glucose 337 mg/dL (74-106)
[2023-02-06 13:28] VITALS: BP 148/67; PULSE 71; RESP 16; TEMP 36.9; O2SAT 95
[2023-02-06] MEDS: Insulin Lispro 100 UNIT/ML INSULN.PEN 10 UNIT SC ×2 (13:28→18:11)
--- NOTE | 2023-02-06 16:10 | CASEMGMT ---
Social Work SW visited pt at bedside. Offered emotional support with recent health issues with . Allowed time for pt to express feelings. Provided supportive listening. SW broached topic of DC as was going to be primary caregiver. Pt stated her son just visited and they discussed this. Son is going to quit his job and become pt's primary caregiver, and pt will hire additional assistance in the home. Pt referenced already provided list of nonskilled [facility] agencies. Pt inquired about setting a DC date. SW suggested son scheduled therapy training then a DC date can be set. Pt agreed and will speak with son. SW updated therapy. Will continue to follow. RAHEEM Harrison CONSUMER RECRUITER
[2023-02-06 17:01] LABS: Bedside Glucose 354 mg/dL (74-106)
[2023-02-06] MEDS: Insulin Glargine-YFGN 100 UNIT/ML Pen 30 UNIT SC (20:48)
[2023-02-06] MEDS: Doxepin Hcl 25 MG Capsule PO (20:50)
[2023-02-06] MEDS: oxyCODONE 5 MG Tablet PO (20:50)
[2023-02-06 21:00] VITALS: O2SAT 95
[2023-02-06 21:10] LABS: Bedside Glucose 227 mg/dL (74-106)
[2023-02-06 21:32] LABS: Bedside Glucose 229 mg/dL (74-106)
[2023-02-07] MEDS: Enoxaparin 40 MG/0.4 ML Syringe SC (06:17)
[2023-02-07] MEDS: Magnesium Chloride 64 MG Delay Rel.Tablet 128 MG PO (06:18)
[2023-02-07] MEDS: Senna/Docusate Sodium 1 Tablet 2 TABLET PO (06:18)
[2023-02-07] MEDS: Acetaminophen 500 MG Tablet 1000 MG PO ×3 (06:18→22:02)
[2023-02-07] MEDS: Sertraline 50 MG Tablet 25 MG PO (06:19)
[2023-02-07] MEDS: Levothyroxine 150 MCG Tablet PO (06:19)
[2023-02-07] MEDS: Losartan Potassium 100 MG Tablet PO (06:19)
[2023-02-07] MEDS: Ammonium Lactate 225 gm Bottle 1 APPLIC TOPICAL ×2 (06:25→18:32)
[2023-02-07] MEDS: Menthol/Lanolin/Calamine/Znox 113 GM Tube 1 APPLIC TOPICAL ×2 (06:27→18:47)
[2023-02-07 06:32] LABS: Bedside Glucose 58 mg/dL (74-106)
[2023-02-07 07:15] LABS: Bedside Glucose 90 mg/dL (74-106)
[2023-02-07] MEDS: Folic Acid 1 MG Tablet PO (09:00)
[2023-02-07] MEDS: predniSONE 5 MG Tablet PO (09:00)
[2023-02-07 11:52] LABS: Bedside Glucose 376 mg/dL (74-106)
[2023-02-07] MEDS: Insulin Lispro 100 UNIT/ML INSULN.PEN 10 UNIT SC ×2 (12:51→18:30)
[2023-02-07 16:00] VITALS: BP 136/69; PULSE 76; RESP 14; TEMP 36; O2SAT 95
[2023-02-07 18:00] LABS: Bedside Glucose 260 mg/dL (74-106)
[2023-02-07 21:58] LABS: Bedside Glucose 203 mg/dL (74-106)
[2023-02-07] MEDS: Insulin Glargine-YFGN 100 UNIT/ML Pen 20 UNIT SC (22:03)
[2023-02-07] MEDS: Doxepin Hcl 25 MG Capsule PO (22:03)
[2023-02-08] MEDS: Menthol/Lanolin/Calamine/Znox 113 GM Tube 1 APPLIC TOPICAL ×2 (05:17→17:37)
[2023-02-08] MEDS: Ammonium Lactate 225 gm Bottle 1 APPLIC TOPICAL ×2 (05:17→22:24)
[2023-02-08 05:20] VITALS: BP 150/73; PULSE 72
[2023-02-08] MEDS: Magnesium Chloride 64 MG Delay Rel.Tablet 128 MG PO (05:20)
[2023-02-08] MEDS: Sertraline 50 MG Tablet 25 MG PO (05:20)
[2023-02-08] MEDS: Acetaminophen 500 MG Tablet 1000 MG PO ×3 (05:20→22:25)
[2023-02-08] MEDS: Losartan Potassium 100 MG Tablet PO (05:20)
[2023-02-08] MEDS: Levothyroxine 150 MCG Tablet PO (05:21)
[2023-02-08] MEDS: Enoxaparin 40 MG/0.4 ML Syringe SC (05:21)
[2023-02-08 06:41] LABS: Bedside Glucose 158 mg/dL (74-106)
[2023-02-08] MEDS: Insulin Lispro 100 UNIT/ML INSULN.PEN 10 UNIT SC ×2 (07:56→17:34)
[2023-02-08] MEDS: Folic Acid 1 MG Tablet PO (07:57)
[2023-02-08] MEDS: predniSONE 5 MG Tablet PO (07:58)
[2023-02-08 10:00] VITALS: PULSE 81; RESP 16; O2SAT 98
[2023-02-08 11:36] LABS: Bedside Glucose 110 mg/dL (74-106)
[2023-02-08 16:00] VITALS: BP 161/75; PULSE 75; RESP 15; TEMP 36.8; O2SAT 93
[2023-02-08] MEDS: Senna/Docusate Sodium 1 Tablet 2 TABLET PO (17:34)
[2023-02-08 17:39] LABS: Bedside Glucose 412 mg/dL (74-106)
[2023-02-08] MEDS: Doxepin Hcl 25 MG Capsule PO (22:25)
[2023-02-08] MEDS: Insulin Glargine-YFGN 100 UNIT/ML Pen 20 UNIT SC (22:25)
[2023-02-08 22:35] LABS: Bedside Glucose 225 mg/dL (74-106)
[2023-02-09] MEDS: Menthol/Lanolin/Calamine/Znox 113 GM Tube 1 APPLIC TOPICAL ×2 (05:15→17:10)
[2023-02-09] MEDS: Ammonium Lactate 225 gm Bottle 1 APPLIC TOPICAL ×2 (05:16→17:10)
[2023-02-09] MEDS: Losartan Potassium 100 MG Tablet PO (05:17)
[2023-02-09] MEDS: Sertraline 50 MG Tablet 25 MG PO (05:17)
[2023-02-09] MEDS: Senna/Docusate Sodium 1 Tablet 2 TABLET PO (05:17)
[2023-02-09] MEDS: Acetaminophen 500 MG Tablet 1000 MG PO ×3 (05:17→21:44)
[2023-02-09] MEDS: Magnesium Chloride 64 MG Delay Rel.Tablet 128 MG PO (05:17)
[2023-02-09] MEDS: Levothyroxine 150 MCG Tablet PO (05:17)
[2023-02-09] MEDS: Enoxaparin 40 MG/0.4 ML Syringe SC (05:18)
[2023-02-09 06:49] LABS: Bedside Glucose 285 mg/dL (74-106)
[2023-02-09] MEDS: Insulin Lispro 100 UNIT/ML INSULN.PEN 10 UNIT SC ×3 (07:49→17:15)
[2023-02-09] MEDS: predniSONE 5 MG Tablet PO (07:50)
[2023-02-09] MEDS: Folic Acid 1 MG Tablet PO (07:50)
[2023-02-09 10:00] VITALS: PULSE 78; RESP 16
--- NOTE | 2023-02-09 11:18 | NURSING ---
Upon assessment this morning pt left lower leg and foot have substantial edema. This nurse asked pt if she wanted to get into bed to get more comfortable and get that leg up a little more to help with the edema. Pt stated that I don't want to get into the bed. Pt did allow this nurse to put feet up while in recliner. RN notified
[2023-02-09 12:07] LABS: Bedside Glucose 321 mg/dL (74-106)
[2023-02-09] MEDS: Insulin Lispro 100 UNIT/ML INSULN.PEN SC (13:30)
[2023-02-09 16:00] VITALS: BP 130/67; PULSE 75; RESP 18; TEMP 36.4; O2SAT 95
[2023-02-09 16:54] LABS: Bedside Glucose 177 mg/dL (74-106)
[2023-02-09] MEDS: Insulin Glargine-YFGN 100 UNIT/ML Pen 20 UNIT SC (21:44)
[2023-02-09] MEDS: Doxepin Hcl 25 MG Capsule PO (21:44)
[2023-02-09 21:55] LABS: Bedside Glucose 206 mg/dL (74-106)
--- NOTE | 2023-02-10 04:17 | NURSING ---
patient observed attempting self transfer despite education, written communication left for Dr. Almonte requesting alarm to promote safety. A&Ox3. Education provided regarding importance of staff assist with transfers to promote safety, patient verbalizes understanding, call light in reach.
[2023-02-10] MEDS: Enoxaparin 40 MG/0.4 ML Syringe SC (05:34)
[2023-02-10] MEDS: Senna/Docusate Sodium 1 Tablet 2 TABLET PO ×2 (05:34→21:49)
[2023-02-10] MEDS: Losartan Potassium 100 MG Tablet PO (05:35)
[2023-02-10] MEDS: Magnesium Chloride 64 MG Delay Rel.Tablet 128 MG PO (05:35)
[2023-02-10] MEDS: Ammonium Lactate 225 gm Bottle 1 APPLIC TOPICAL ×2 (05:35→21:50)
[2023-02-10] MEDS: Levothyroxine 150 MCG Tablet PO (05:35)
[2023-02-10] MEDS: Sertraline 50 MG Tablet 25 MG PO (05:35)
[2023-02-10] MEDS: Acetaminophen 500 MG Tablet 1000 MG PO ×3 (05:35→21:49)
[2023-02-10] MEDS: Menthol/Lanolin/Calamine/Znox 113 GM Tube 1 APPLIC TOPICAL ×3 (05:36→21:50)
[2023-02-10] MEDS: Methotrexate 2.5 MG Tablet 12.5 MG PO (05:37)
[2023-02-10 05:44] VITALS: BP 126/69; PULSE 74; RESP 16
--- NOTE | 2023-02-10 06:22 | NURSING ---
+1 edema observed to LLE, no heat, no edema, slight redness, no drainage. LLE edema greater in comparison to RLE. Written communication left for Dr. Almonte review this AM regarding findings. No c/o pain. No distress observed or reported. Call light in reach.
[2023-02-10 06:43] LABS: Bedside Glucose 302 mg/dL (74-106)
[2023-02-10] MEDS: predniSONE 5 MG Tablet PO (07:49)
[2023-02-10] MEDS: Insulin Lispro 100 UNIT/ML INSULN.PEN 10 UNIT SC ×2 (07:49→12:48)
[2023-02-10] MEDS: Folic Acid 1 MG Tablet PO (07:49)
[2023-02-10 09:41] VITALS: PULSE 77; RESP 18; O2SAT 99
[2023-02-10 11:23] LABS: Bedside Glucose 250 mg/dL (74-106)
[2023-02-10 13:06] VITALS: BP 153/69; PULSE 78; RESP 18; TEMP 36.2; O2SAT 96
[2023-02-10 16:41] LABS: Bedside Glucose 98 mg/dL (74-106)
--- NOTE | 2023-02-10 19:22 | PN.TCU_ITS ---
Subjective Subjective Resident seen, examined for regulatory visit. She has no new problems, concerns, issues, complaints. Resident is a brittle diabetic. She told me her mother was also brittle diabetic. Objective Data Objective Data Vital Signs: Vital Signs Temp Pulse Resp BP Pulse Ox O2 Del Method 97.2 F L 78 18 153/69 H 96 Room Air 02/10/23 13:06 02/10/23 13:06 02/10/23 13:06 02/10/23 13:06 02/10/23 13:06 02/10/23 13:06 Oxygen Delivery Method Room Air Weight: 57.805 kg Body Mass Index (BMI) 22.6 Intake & Output: Intake and Output for Last 24 Hours 02/08/23 02/09/23 02/10/23 23:59 23:59 23:59 Intake Total 940 / 940 1060 / 1060 600 / 600 Balance 940 / 940 1060 / 1060 600 / 600 Lab / Micro Data Attestation: I reviewed the patient's lab results. 02/04/23 05:11 02/04/23 05:11 Labs: Laboratory Results - last 24 hr 02/09/23 21:26: POC Glucose 206 H 02/10/23 06:23: POC Glucose 302 H 02/10/23 10:57: POC Glucose 250 H 02/10/23 16:22: POC Glucose 98 Micro: Microbiology 01/24/23 14:48 Urine, Clean Catch Urine Culture - Final Mixed Gram Pos & Gram Neg Org 01/18/23 02:15 Urine, Catheterized Urine Culture - Final Culture exhibits no growth. Physical Exam Const alert General Appearance: cooperative HEENT normocephalic Eyes PERRL and EOMs intact bilaterally Neck supple, no JVD and no carotid bruits Resp normal respiratory effort, normal air movement and clear to auscultation bilaterally Cardio regular rate and regular rhythm GI normal to inspection, nondistended, normoactive bowel sounds, non-tender and non-distended Extremity normal capillary refill Extremity Narrative: Left upper extremity sling. General Extremity: Negative for edema Skin no rashes or lesions noted General Skin Exam: no breakdown Psych affect normal Appearance: appropriate Assessment & Plan Assessment/Plan (1) Debility: (2) Closed fracture of left proximal humerus: QUALIFIERS: Encounter type: initial encounter Fracture morphology: unspecified fracture morphology Qualified Code(s): S42.202A - Unspecified fracture of upper end of left humerus, initial encounter for closed fracture (3) Fracture of left inferior pubic ramus: QUALIFIERS: Encounter type: initial encounter Fracture type: closed Qualified Code(s): S32.592A - Other specified fracture of left pubis, initial encounter for closed fracture (4) Diabetes mellitus: (5) Chronic anemia: (6) HTN (hypertension): (7) Hypothyroidism: (8) Rheumatoid arthritis: PLAN: Plan 72 year old female with below past medical history hospitalized for left humerus fracture, left pelvis fracture, admitted to TCU with debility, here for rehabilitation, strengthening, prior to discharge home with . * Debility - PT/OT. * Pain - Tylenol 1000mg q8, Tramadol 50mg q6h prn, Oxycodone 5mg q4h prn pain. * Bowel - senna/colace 2 tablets bid. * Adult immunization - Administer pneumonia vaccine, covid19 vaccine, flu vaccine as appropriate. * DVT prophylaxis - Lovenox 40mg sc daily. * Rheumatoid arthritis - MTX 12.5mg per week, Folic acid 1mg daily, Prednisone 5mg daily. * Diabetes Mellitus II - Glargine 20 units qhs, Lispro 10 units tid. * Hypothyroidism - Levothyroxine 150mcg daily. * Hypertension - Losartan 100mg daily. * Hypomagnesemia - Magnesium 128mg daily. * Skin irritation - Calmoseptine topical bid, Lac-hydrin topical bid. * Tinea Corporis - Nystatin topical bid prn. * Depression - Sertraline 25mg daily, stable chronic senior living use, GDR not recommended. * Insomnia - Doxepin 25mg qhs, stable use, GDR not recommended. Capacity Capacity Assessment Tool Can the patient make a choice & communicate that choice?: Yes Can the patient understand benefits, risks and alternatives?: Yes Can the patient make a logical, rational choice?: Yes Is the choice the patient makes consistent w/ their values?: Yes Is there an impending, emergent risk to the patient?: No Does the patient have an Advance Directive?: Yes Is there a Surrogate Available?: Yes i.e. HCPOA: Yes i.e. close relative (spouse, child, parent, sibling)?: Yes
[2023-02-10] MEDS: Doxepin Hcl 25 MG Capsule PO (21:49)
[2023-02-10 22:24] LABS: Bedside Glucose 72 mg/dL (74-106)
[2023-02-11] MEDS: Levothyroxine 150 MCG Tablet PO (05:38)
[2023-02-11] MEDS: Acetaminophen 500 MG Tablet 1000 MG PO ×3 (05:38→20:31)
[2023-02-11 05:44] LABS: Absolute Lymphocyte Count 2.38 X10^3/uL (0.83-4.51); Basophil# 0.15 X10^3/uL; Basophil% 1.6 % (0-1); Eosinophil# 0.26 X10^3/uL; Eosinophils% 2.8 % (0-5); Hematocrit 33.6 % (37-47); Hemoglobin 10.4 g/dL (12.0-15.0); Lymphocyte # 2.38 X10^3/ul (0.83-4.51); Lymphocyte % 25.5 % (19-41); Mean Corpuscular Hgb 27.6 pg (27.0-32.0); Mean Corpuscular Volume 89.1 fL (81-99); Mean Platelet Vol. 10.8 fl (6.2-12.0); Monocyte# 0.46 X10^3/uL; Monocyte% 4.9 % (0-10); NRBC Flagged by Analyzer 0 % (0-5); Neutrophil # 6.02 X10^3/uL (2.7-7.7); Neutrophil % 64.6 % (47-70); Platelet Count 320 K/mm3 (150-450); RBC Distribution Width CV 15.5 % (11.6-14.6); RBC Distribution Width SD 50.8 fl (35.1-43.9); Red Blood Count 3.77 M/mm3 (4.2-5.4); White Blood Count 9.3 K/mm3 (4.4-11.0)
[2023-02-11 06:41] LABS: Bedside Glucose 354 mg/dL (74-106)
[2023-02-11 06:46] LABS: Anion Gap 4 (5-15); BUN 15 mg/dL (7-18); BUN/Creat Ratio 26.3 RATIO (10-20); Calcium,Total 8.8 mg/dL (8.5-10.1); Chloride 99 mmol/L (98-107); Creatinine, Serum 0.57 mg/dL (0.55-1.02); EST Glomerular Filtration Rate 111 mL/min (>60); Est Glom Filt Rate - Afr Amer 134 mL/min (>60); Glucose 346 mg/dL (74-106); Potassium 4.3 mmol/L (3.5-5.1); Sodium Level 131 mmol/L (136-145)
[2023-02-11] MEDS: Insulin Lispro 100 UNIT/ML INSULN.PEN 10 UNIT SC ×3 (08:18→18:00)
[2023-02-11] MEDS: predniSONE 5 MG Tablet PO (08:18)
[2023-02-11] MEDS: Folic Acid 1 MG Tablet PO (08:18)
[2023-02-11] MEDS: Enoxaparin 40 MG/0.4 ML Syringe SC (09:57)
[2023-02-11] MEDS: Magnesium Chloride 64 MG Delay Rel.Tablet 128 MG PO (09:58)
[2023-02-11] MEDS: Losartan Potassium 100 MG Tablet PO (09:58)
[2023-02-11] MEDS: Sertraline 50 MG Tablet 25 MG PO (09:58)
[2023-02-11] MEDS: Ammonium Lactate 225 gm Bottle 1 APPLIC TOPICAL ×2 (09:59→20:33)
[2023-02-11] MEDS: Menthol/Lanolin/Calamine/Znox 113 GM Tube 1 APPLIC TOPICAL ×2 (09:59→20:32)
[2023-02-11 10:07] VITALS: BP 151/68; PULSE 80
[2023-02-11 11:56] LABS: Bedside Glucose 313 mg/dL (74-106)
[2023-02-11 13:01] VITALS: BMI 22.4
--- NOTE | 2023-02-11 15:10 | CASEMGMT ---
Social Work Family requesting to speak with this worker in pt's room. SW presented to room. Introduced self and role. Family introduced themselves as two sisters and a niece. Family was in town from [place] and requesting updates on pt's progress and DC plans. SW agreed with conversation and IDT has been attempting to coordinate therapy training with son, but son is not responsive to phone calls. SW provided updates on LOC and recommendations for DC: supervision with meds, finances, toileting, assist with dressing and bathing. Pt can be left alone for minimal time after being set up, but recommending care throughout the day/evening. Discussed and provided resources for [facility] [place] and noted MILITARY ANALYST list already provided. Sister's appear realistic and understanding to pt's needs. SW inquired about DME needs at home. Family state pt has FWW at home but unsure if height is appropriate. SW suggested to bring FWW in for therapy to evaluate. Family agreeable. Family to notify son to contact this worker to schedule therapy training in order to set DC date. Family mentioned son is off work this week in hopes to take pt home. Several minutes after family left, son presented to room and requested to speak with this worker. DOG FOOD DOUGH MIXER also present in room and assisted with LOC explanation. Son agreed to remain for OT session for training and scheduled PT training for tomorrow afternoon. After session, SERGE reports son did well and he was requesting DC 02/13. SW to follow up with son after training tomorrow to finalize DC. SW will continue to follow. RAHEEM HarrisonW
[2023-02-11 16:00] VITALS: BP 133/67; PULSE 80; RESP 14; TEMP 36.4; O2SAT 95
[2023-02-11 16:55] LABS: Bedside Glucose 356 mg/dL (74-106)
[2023-02-11] MEDS: Insulin Glargine-YFGN 100 UNIT/ML Pen 20 UNIT SC (20:30)
[2023-02-11] MEDS: Doxepin Hcl 25 MG Capsule PO (20:31)
[2023-02-11] MEDS: oxyCODONE 5 MG Tablet PO (20:32)
[2023-02-11 21:23] LABS: Bedside Glucose 283 mg/dL (74-106)
[2023-02-12] MEDS: Acetaminophen 500 MG Tablet 1000 MG PO ×3 (05:31→21:38)
[2023-02-12] MEDS: Levothyroxine 150 MCG Tablet PO (05:31)
[2023-02-12 06:48] LABS: Bedside Glucose 235 mg/dL (74-106)
[2023-02-12] MEDS: Insulin Lispro 100 UNIT/ML INSULN.PEN 10 UNIT SC ×3 (08:27→17:32)
[2023-02-12] MEDS: Folic Acid 1 MG Tablet PO (08:28)
[2023-02-12] MEDS: predniSONE 5 MG Tablet PO (08:28)
[2023-02-12] MEDS: Menthol/Lanolin/Calamine/Znox 113 GM Tube 1 APPLIC TOPICAL ×2 (10:28→21:43)
[2023-02-12] MEDS: Senna/Docusate Sodium 1 Tablet 2 TABLET PO ×2 (10:29→21:39)
[2023-02-12] MEDS: Magnesium Chloride 64 MG Delay Rel.Tablet 128 MG PO (10:29)
[2023-02-12] MEDS: Losartan Potassium 100 MG Tablet PO (10:30)
[2023-02-12] MEDS: Sertraline 50 MG Tablet 25 MG PO (10:30)
[2023-02-12] MEDS: Enoxaparin 40 MG/0.4 ML Syringe SC (10:31)
[2023-02-12] MEDS: Ammonium Lactate 225 gm Bottle 1 APPLIC TOPICAL ×2 (10:35→21:43)
[2023-02-12 10:43] VITALS: BP 119/66; PULSE 73
[2023-02-12 12:08] LABS: Bedside Glucose 250 mg/dL (74-106)
[2023-02-12 14:07] VITALS: BP 127/69; PULSE 89; RESP 16; TEMP 36.1; O2SAT 96
--- NOTE | 2023-02-12 16:22 | CASEMGMT ---
Social Work SW spoke with pt and confirmed therapy training went well with family today. Confirmed planned DC 02/13. Son to transport. SW offered skilled HHC list with quality and resource data but denied and agreeable to [facility]. Pt will need a pediatric FWW. SW phoned referral to [facility] for PT/[place]. If nursing is needed, that can be added after SOC. SW sent referral to [facility] for pediatric FWW. Plan; DC home with son 02/13, [facility] PT/OT/[place], pediatric FWW Santa Alejandro, GAME OPERATOR [employer]
--- NOTE | 2023-02-12 16:29 | CASEMGMT ---
Social Work BIMS () and PHQ-9 (07/12) completed for MDS assessment. Santa Alejandro MSW LEARNING TECHNOLOGIES SPECIALIST
[2023-02-12 16:44] LABS: Bedside Glucose 190 mg/dL (74-106)
--- NOTE | 2023-02-12 19:37 | DS.PCM_ITS ---
Providers Date of Admission: 01/13/23 Primary Care Physician: Dr. Eric Bravo, DO Consultations 01/19/23 18:40 Consult: Podiatry Routine Consulting Provider: Dustin Young Reason for Consult: diabetic foot care EMERGENT Consult: No MD Notified: Yes Date Notified: 01/23/23 Time Notified: 09:00 Method of Notification: Verbal Reason For Visit: HUMERAL FRACTURE AND PUBIC RAMI FRACTURE Diagnosis Discharge Diagnosis (1) Debility: Status: Acute Code(s): R53.81 - Other malaise (2) Closed fracture of left proximal humerus: Status: Acute Code(s): S42.202A - Unspecified fracture of upper end of left humerus, initial encounter for closed fracture Qualifiers: Encounter type: initial encounter Fracture morphology: unspecified fracture morphology Qualified Code(s): S42.202A - Unspecified fracture of upper end of left humerus, initial encounter for closed fracture (3) Fracture of left inferior pubic ramus: Status: Acute Code(s): S32.592A - Other specified fracture of left pubis, initial encounter for closed fracture Qualifiers: Encounter type: initial encounter Fracture type: closed Qualified Code(s): S32.592A - Other specified fracture of left pubis, initial encounter for closed fracture (4) Diabetes mellitus: Status: Acute Code(s): E11.9 - Type 2 diabetes mellitus without complications (5) Chronic anemia: Status: Chronic Code(s): D64.9 - Anemia, unspecified (6) HTN (hypertension): Status: Chronic Code(s): I10 - Essential (primary) hypertension (7) Hypothyroidism: Status: Acute Code(s): E03.9 - Hypothyroidism, unspecified (8) Rheumatoid arthritis: Status: Acute Code(s): M06.9 - Rheumatoid arthritis, unspecified Plan 72 year old female with below past medical history hospitalized for left humerus fracture, left pelvis fracture, admitted to TCU with debility, here for rehabilitation, strengthening, prior to discharge home with . * Debility - PT/OT. * Pain - Tylenol 1000mg q8, Tramadol 50mg q6h prn, Oxycodone 5mg q4h prn pain. * Bowel - senna/colace 2 tablets bid. * Adult immunization - Administer pneumonia vaccine, covid19 vaccine, flu vaccine as appropriate. * DVT prophylaxis - Lovenox 40mg sc daily. * Rheumatoid arthritis - MTX 12.5mg per week, Folic acid 1mg daily, Prednisone 5mg daily. * Diabetes Mellitus II - Glargine 20 units qhs, Lispro 10 units tid. * Hypothyroidism - Levothyroxine 150mcg daily. * Hypertension - Losartan 100mg daily. * Hypomagnesemia - Magnesium 128mg daily. * Skin irritation - Calmoseptine topical bid, Lac-hydrin topical bid. * Tinea Corporis - Nystatin topical bid prn. * Depression - Sertraline 25mg daily, stable chronic [facility] use, GDR not re commended. * Insomnia - Doxepin 25mg qhs, stable use, GDR not recommended. Medications at Discharge Home Medications folic acid 400 mcg tablet 0.4 mg PO DAILY SUPPLEMENT 03/15/22 levothyroxine 150 mcg tablet 150 mcg PO DAILY THYROID 03/15/22 losartan 25 mg tablet 25 mg PO DAILY BLOOD PRESSURE 03/15/22 magnesium oxide 400 mg PO DAILY SUPPLEMENT 03/15/22 methotrexate sodium 2.5 mg tablet 12.5 mg PO QWEEK inflammation 03/15/22 prednisone 5 mg tablet 5 mg PO DAILY arthritis 01/10/23 sertraline 25 mg tablet 25 mg PO DAILY depression 01/10/23 insulin detemir U-100 100 unit/mL (3 mL) subcutaneous pen (Levemir FlexPen) 38 unit subcut QHS DMII 01/11/23 insulin aspart U-100 100 unit/mL (3 mL) subcutaneous pen (Novolog FlexPen U-100 Insulin aspart) 5 unit (0.05 mL) subcut TID glucose control #15 mL 01/13/23 acetaminophen 500 mg tablet 1,000 mg (2 x 500 mg) PO Q8 #0 tabs 02/12/23 oxycodone 5 mg tablet 5 mg PO Q4H PRN PRN Pain Score 4-10 3 days #18 tabs 02/12/23 Hospital Course Operations None Procedures None Summary of Care Provided Minutes Spent on Discharge: 35 Hospital Course: 72 year old female with below past medical history hospitalized for left humerus fracture, left pelvis fracture, admitted to TCU with debility, here for rehabilitation, strengthening, prior to discharge home with . Discharge home with son 02/13/2023, [facility] PT/OT/[place], pediatric front wheeled walker. Physical Exam Const alert General Appearance: cooperative HEENT normocephalic Eyes PERRL and EOMs intact bilaterally Neck supple, no JVD and no carotid bruits Resp normal respiratory effort, normal air movement and clear to auscultation bilaterally Cardio regular rate and regular rhythm GI normal to inspection, nondistended, normoactive bowel sounds, non-tender and non-distended Extremity normal capillary refill General Extremity: Negative for edema Skin no rashes or lesions noted General Skin Exam: no breakdown Psych affect normal Appearance: appropriate Weight / BMI Weight Weight: 57.379 kg Body Mass Index (BMI) 22.4 ABG / Lab / Microbiology Data 02/11/23 05:13 02/11/23 05:13 Laboratory: Laboratory Results - last 24 hr 02/11/23 20:30: POC Glucose 283 H 02/12/23 06:24: POC Glucose 235 H 02/12/23 11:40: POC Glucose 250 H 02/12/23 15:50: POC Glucose 190 H Microbiology: Microbiology 01/24/23 14:48 Urine, Clean Catch Urine Culture - Final Mixed Gram Pos & Gram Neg Org 01/18/23 02:15 Urine, Catheterized Urine Culture - Final Culture exhibits no growth. D/C Instructions Discharge Diet: No restrictions Discharge Activity: Return to Normal Activity, May Shower and Use Walker Weight Bearing Status: Weight bearing as tolerated Call your doctor if you observe: Fever of 101 or Higher, Inability to urinate, Inability to have a bowel movement, Shortness of breath, Dizziness, Fainting spells, Swelling in the ankles, Chest pain and Uncontrolled pain Additional Instructions: Discharge home with son 02/13/2023, [facility] PT/OT/[place], pediatric front wheeled walker. Please Follow Up With: Wan Oh MD When: As scheduled. Meaningful Use Info Meaningful Use Diagnoses (Choose all that apply): None applicable Discharge Plan Admission Admit Date/Time: 01/13/23 16:00 Primary Reason for Your Visit: Debility. Attending Provider: Hu Almonte Chi Primary Care Provider: Eric Bravo Consulting Providers: Dustin Young Instructions Additional Instructions / Restrictions: Discharge home with son 02/13/2023, [facility] PT/OT/[place], pediatric front wheeled walker. Discharge Orders/Prescriptions Prescriptions: New acetaminophen 500 mg Tablet 1,000 mg PO Q8 Qty: 0 0RF oxycodone 5 mg Tablet 5 mg PO Q4H PRN PRN (Reason: Pain Score 4-10) 3 Days Qty: 18 0RF Continued folic acid 400 mcg Tablet 0.4 mg PO DAILY methotrexate sodium 2.5 mg tablet 12.5 mg PO QWEEK Patient Comments: TAKE 5 (FIVE) tablets BY MOUTH per week losartan 25 mg tablet 25 mg PO DAILY levothyroxine 150 MCG tablet 150 mcg PO DAILY magnesium oxide 400 mg magnesium tablet 400 mg PO DAILY prednisone 5 mg tablet 5 mg PO DAILY Patient Comments: TAKE 1 TABLET BY MOUTH EVERY MORNING sertraline 25 mg tablet 25 mg PO DAILY Patient Comments: Take 1 tablet by mouth daily Levemir FlexPen 100 unit/mL (3 mL) insulin pen 38 unit subcut QHS insulin aspart U-100 [Novolog FlexPen U-100 Insulin] 100 unit/mL (3 mL) insulin pen 5 unit subcut TID Qty: 15 0RF Patient Comments: SLIDING SCALE 3-12 UNITS before meals Rx Instructions: Hold if glucose less than 130 mg/dl Discontinued acetaminophen 500 mg Tablet 1,000 mg PO Q8 Qty: 0 0RF insulin lispro [Humalog KwikPen Insulin] 100 unit/mL Insulin Pen See Protocol subcut ACHS Qty: 0 0RF Protocol: 3. Sliding Scale Insulin Med Dosing Condition: 150-189 mg/dl = 1 unit Condition: 190-229 mg/dl = 2 units Condition: 230-269 mg/dl = 3 units Condition: 270-309 mg/dl = 4 units Condition: 310-349 mg/dl = 5 units Condition: 350-399 mg/dl = 6 units Condition: 400-449 mg/dl = 7 units Condition: Greater than 449 call physician Protocol Text: - Use for Total Daily Dose of Insulin 37-55 units - Obsese, infected, or steroid patients MEDIUM DOSING ALGORITHIM oxycodone 5 mg Tablet 5 mg PO Q4H PRN PRN (Reason: Pain Score 4-10) 3 Days Qty: 12 0RF sennosides-docusate sodium [Stool Softener-Stimulant Laxat] 8.6-50 mg Tablet 2 tab PO BID PRN PRN (Reason: Constipation) Qty: 0 0RF Referrals / Follow Up: Devin Rosas DPM [Med Staff - Active Staff] - Eric Bravo DO [Primary Care Provider] - 02/19/23 10:50 am Wan Oh MD [Med Staff - Active Staff] - 03/03/23 10:30 am Disposition Disposition (needs filled in before D/C Order can be placed): Home Health Service
[2023-02-12 21:36] LABS: Bedside Glucose 208 mg/dL (74-106)
[2023-02-12] MEDS: Insulin Glargine-YFGN 100 UNIT/ML Pen 20 UNIT SC (21:39)
[2023-02-12] MEDS: Doxepin Hcl 25 MG Capsule PO (21:39)
[2023-02-13] MEDS: Levothyroxine 150 MCG Tablet PO (05:04)
[2023-02-13] MEDS: Acetaminophen 500 MG Tablet 1000 MG PO (05:04)
[2023-02-13 06:33] VITALS: PULSE 70; RESP 16; O2SAT 98
[2023-02-13 06:45] VITALS: BP 150/68; PULSE 70; RESP 16; TEMP 36.2; O2SAT 98
[2023-02-13 06:49] LABS: Bedside Glucose 429 mg/dL (74-106)
[2023-02-13] MEDS: Insulin Lispro 100 UNIT/ML INSULN.PEN SC (07:56)
[2023-02-13] MEDS: Insulin Lispro 100 UNIT/ML INSULN.PEN 10 UNIT SC (07:57)
[2023-02-13] MEDS: Folic Acid 1 MG Tablet PO (07:58)
[2023-02-13] MEDS: predniSONE 5 MG Tablet PO (07:59)
[2023-02-13] MEDS: Menthol/Lanolin/Calamine/Znox 113 GM Tube 1 APPLIC TOPICAL (08:00)
[2023-02-13] MEDS: Sertraline 50 MG Tablet 25 MG PO (08:03)
[2023-02-13] MEDS: Losartan Potassium 100 MG Tablet PO (08:03)
[2023-02-13] MEDS: Senna/Docusate Sodium 1 Tablet 2 TABLET PO (08:04)
[2023-02-13] MEDS: Magnesium Chloride 64 MG Delay Rel.Tablet 128 MG PO (08:04)
[2023-02-13] MEDS: Enoxaparin 40 MG/0.4 ML Syringe SC (08:05)
[2023-02-13 08:12] VITALS: BP 162/56; PULSE 80
[2023-02-13 11:08] VITALS: BP 162/56; PULSE 80; RESP 16; TEMP 36.2; O2SAT 98
== END 2023-02-13 11:30 | disposition home health service (06) | DRG 561 ==
PROVIDERS: Admitting Provider Family Medicine Geriatric Medicine; PCP Family Medicine; Referring Provider Family Medicine Geriatric Medicine; Visit Provider Family Medicine Geriatric Medicine
DX: S32.592D Other specified fracture of left pubis, subsequent encounter for fracture with routine healing (principal); E03.9 Hypothyroidism, unspecified; D64.9 Anemia, unspecified; B35.4 Tinea corporis; B35.1 Tinea unguium; E11.59 Type 2 diabetes mellitus with other circulatory complications; Z79.4 Long term (current) use of insulin; M06.9 Rheumatoid arthritis, unspecified; F32.A Depression, unspecified; I10 Essential (primary) hypertension; E83.42 Hypomagnesemia; W19.XXXD Unspecified fall, subsequent encounter; I87.2 Venous insufficiency (chronic) (peripheral); S42.202D Unspecified fracture of upper end of left humerus, subsequent encounter for fracture with routine healing; Z79.52 Long term (current) use of systemic steroids; Z87.891 Personal history of nicotine dependence; Z79.899 Other long term (current) drug therapy; Z79.890 Hormone replacement therapy; Z23 Encounter for immunization
CPT/HCPCS: 0134A; 36415; 71046; 80048; 81001; 82962; 85025; 87086; 87088; 90677; 91313; 92507; 92523; 92526; 93971; 97110; 97116; 97129; 97130; 97162; 97166; 97530; 97535; 97802; G0009; J8610

== ENCOUNTER → 2023-02-10 | Outpatient (CLI) | payer MEDICARE, OTHER, SELFPAY ==
--- NOTE | 2023-02-10 09:32 | VDLE_ITS ---
Reason For Study: Left leg swelling RIGHT LEFT CFV is compressible, spontaneous, phasic, GSV is normal. competent and demonstrates normal CFV is compressible, spontaneous, phasic, augmentation. competent, and demonstrates normal Procedure augmentation. This is a venous duplex using B-mode, color FV is compressible, spontaneous, phasic, flow and spectral Doppler. competent and demonstrates normal Exam performed portable in patient room. augmentation. A preliminary report was called and/or faxed POP V is compressible, spontaneous, phasic, to TCU: [facility]. competent and demonstrates normal augmentation. T/P Trunk is compressible. PTV is compressible. LT PerV is compressible. VL/Venous Duplex US, Unilateral Interpretation Summary There is no evidence of left lower extremity deep vein thrombosis. Left great s aphenous vein appears patent and compressible segmentally. Normal flow patterns right common femoral vein Ordering Physician: Hu Almonte Chi Referring Physician: Eric Bravo Performed By: Elisha Che RVT
== END | disposition home or self-care (01) ==
LOC: CVS 09:31
PROVIDERS: PCP Family Medicine; Referring Provider Family Medicine Geriatric Medicine; Visit Provider Family Medicine Geriatric Medicine
DX: M79.89 Other specified soft tissue disorders (principal)
CPT/HCPCS: 93971

== ENCOUNTER → 2023-03-17 | Outpatient (CLI) | payer MEDICARE, OTHER, SELFPAY ==
[2023-03-17 10:19] LABS: Color, Urine Yellow (Yellow); Glucose, Dipstick 1000 mg/dl (Normal); Ketone-Dipstick Negative (Negative); Leukocyte Esterase-Dipstick 100 /ul (Negative); Nitrite-Dipstick Negative (Negative); Occult Blood-Urine Negative /ul (Negative); Protein-Dipstick 15 mg/dl (Negative); Urine Bilirubin Dipstick Negative (Negative); Urine Clarity Sl. Cloudy (Clear); Urine Urobilinogen Normal (Normal)
[2023-03-17 10:25] LABS: PTHIN 29.9 pg/mL (18.4-80.1)
[2023-03-17 10:28] LABS: Vitamin D,25 Hydroxy 12.3 ng/mL
[2023-03-17 10:45] LABS: ALB/GLOB Ratio 0.7 RATIO (0.9-2.4); AST(SGOT) 9 U/L (15-37); Alanine Aminotransfer ALT/SGPT 17 U/L (13-56); Albumin, Serum 3.3 g/dL (3.2-5.0); Alkaline Phosphatase 186 U/L (45-117); Anion Gap 10 (5-15); BUN 18 mg/dL (7-18); BUN/Creat Ratio 24.1 RATIO (10-20); Chloride 100 mmol/L (98-107); Creatinine, Serum 0.75 mg/dL (0.55-1.02); EST Glomerular Filtration Rate 81 mL/min (>60); Est Glom Filt Rate - Afr Amer 99 mL/min (>60); Globulin 4.5 g/dL (2.2-4.2); Glucose 373 mg/dL (74-106); Protein, Total 7.8 g/dL (6.4-8.2); Sodium Level 132 mmol/L (136-145); T4 Free Direct 0.96 ng/dL (0.76-1.46); Thyroid Stim Hormone (TSH) 2.85 uIU/mL (0.358-3.74)
[2023-03-17 10:47] LABS: Microalbumin,Random Urine 34.1 mg/L (NO RANGE EST.); Microalbumin:Creatinine Ratio 53.9 mg/g CRE (<30 mg/g CRE)
== END | disposition home or self-care (01) ==
PROVIDERS: PCP Family Medicine; Referring Provider Internal Medicine Endocrinology, Diabetes & Metabolism; Visit Provider Internal Medicine Endocrinology, Diabetes & Metabolism
DX: E10.65 Type 1 diabetes mellitus with hyperglycemia (principal); E55.9 Vitamin D deficiency, unspecified; Z79.899 Other long term (current) drug therapy
CPT/HCPCS: 36415; 80053; 81002; 82043; 82306; 82570; 83036; 83970; 84439; 84443

== ENCOUNTER → 2023-04-01 | Outpatient (CLI) | payer MEDICARE, OTHER, SELFPAY ==
--- NOTE | 2023-04-01 09:51 | ECHOD_ITS ---
Reason For Study: Orthopnea Procedure This was a 2D Doppler, Color Flow transthoracic echocardiogram. Exam performed in department. Left Ventricle Normal LV size. The estimated ejection fraction is 65 %. Diastolic function is indeterminate. No regional wall motion abnormalities noted. Right Ventricle Normal RV size. Normal systolic function. Atria The left atrium is mildly enlarged. Normal right atrium. No doppler evidence for ASD. Mitral Valve There is mild to moderate mitral annular calcification. There is no mitral valve stenosis. No mitral valve insufficiency. Tricuspid Valve There is no tricuspid stenosis. Unable to estimate RV systolic pressure due to insufficient tricuspid regurgitant envelope. Aortic Valve Trisinus/trileaflet aortic valve. Aortic sclerosis, no stenosis. There is no aortic stenosis. No aortic valve insufficiency. Pulmonic Valve There is no pulmonic valvular stenosis. Trivial pulmonic valve insufficiency. Great Vessels Normal aortic root. Pericardium/Pleural No pericardial effusion. MMode/2D Measurements & Calculations LVIDd: 3.9 cm IVSd: 1.1 cm Ao root diam: 3.4 cm LVIDs: 2.6 cm LVPWd: 1.1 cm LA dimension: 3.6 cm RVDd: 3.5 cm FS: 33.1 % LAV(MOD-bp): 60.3 ml LVAd ap4: 24.8 cm2 SV(MOD-sp4): 41.6 ml LAV(MOD-bp) Indexed: 35.2 ml/m2 LVLd ap4: 6.9 cm LAV(MOD-sp2): 69.1 ml EDV(MOD-sp4): 72.9 ml LAV(MOD-sp4): 52.6 ml EDV(sp4-el): 76.5 ml LVAs ap4: 14.0 cm2 LVLs ap4: 5.8 cm ESV(MOD-sp4): 31.2 ml ESV(sp4-el): 28.6 ml EF(MOD-sp4): 57.2 % EF(sp4-el): 62.5 % SV(sp4-el): 47.8 ml LA A4 area: 19.0 cm2 RA A4 area: 12.9 cm2 TAPSE: 1.6 cm Time Measurements MV dec time: 0.26 sec Doppler Measurements & Calculations MV E max samson: 52.9 cm/sec Lat Peak E' Samson: 8.5 cm/sec Med Peak E' Samson: 5.6 cm/sec MV A max samson: 67.0 cm/sec E/E' lat: 6.2 E/E' med: 9.5 MV E/A: 0.79 MV V2 max: 76.5 cm/sec MV P1/2t max samson: 67.0 cm/sec Ao V2 max: 101.5 cm/sec MV max P.3 mmHg MV P1/2t: 85.9 msec Ao max P.1 mmHg MV V2 mean: 44.8 cm/sec MV dec slope: 228.3 cm/sec2 MV mean P.92 mmHg MV V2 VTI: 20.7 cm MVA(P1/2t): 2.6 cm2 LV V1 max: 64.9 cm/sec PA V2 max: 66.0 cm/sec LV V1 max P.7 mmHg ECHO/Echo Complete Interpretation Summary The estimated ejection fraction is 65 %. Diastolic function is indeterminate. The left atrium is mildly enlarged. Ordering Physician: Eric Bravo Referring Physician: Eric Bravo Performed By: Kelvin De Luna RCS
--- NOTE | 2023-04-01 11:29 | BD_ITS ---
STUDY: DUAL ENERGY X-RAY ABSORPTIOMETRY / DXA REASON FOR EXAM: Female, 72 years old. Osteoporosis post menopause screening TECHNIQUE: Bone Mineral Density (BMD) measurements of lumbar spine and bilateral hips were obtained. COMPARISON: Comparison is made with prior study dated December 29, 2012. FINDINGS: Lumbar Spine (L1-L4): g/cm2 (0.723) / T-score (-3.4) / Z-score (-1.2) Findings are suggestive of osteoporosis with a high fracture risk. Left Femur Total: g/cm2 (0.336) / T-score (-5.0) / Z-score (-3.4) Left Femoral Neck: g/cm2 (0.293) / T-score (-5.0) / Z-score (-3.2) Right Femur Total: g/cm2 (0.435) / T-score (-4.2) / Z-score (-2.6) Right Femoral Neck: g/cm2 (0.495) / T-score (-3.2) / Z-score (-1.4) The T-Scores on the most recent prior examination were: Lumbar Spine (L1-L4): There has been worsening of bone density since the previous examination. Left Femur Total: which represents a worsening of 49.8%. Right Femur Total: which represents a worsening of 37.9%. BD/Dexa Bone Density Study IMPRESSION: The patient is considered osteoporotic as outlined below according to World [place] [employer] Organization (WHO) criteria with a high fracture risk. There has been worsening of bone density since the previous examination. Reference Information: The T-score is the number of standard deviations above or below the standard which is normal for young adults at their peak bone mineral density. The World Health Organization (WHO) interprets the T-scores as follows: Above -1 Normal bone density Between -1 and -2.5 Osteopenia Equal to / or below -2.5 Osteoporosis As a practical clinical guideline, osteopenia may be graded as follows: Mild -1 through -1.5 Moderate -1.6 through -2.0 Severe -2.1 through -2.4 The Z-score is the number of standard deviations above or below age-matched controls. A Z-score of less than -1.5 would be considered abnormal. References: 1. NIH Osteoporosis and Related Bone Diseases www osteo.org 2. International Society for Clinical Densitometry www iscd.org 3. National Osteoporosis Foundation www nof.org Electronically Signed: Pablo Sarmiento MD at 8:48 EDT ,
== END | disposition home or self-care (01) ==
LOC: CVS 09:50
PROVIDERS: PCP Family Medicine; Referring Provider Obstetrics & Gynecology; Visit Provider Obstetrics & Gynecology
DX: R06.01 Orthopnea (principal); R60.9 Edema, unspecified; Z78.0 Asymptomatic menopausal state; I35.8 Other nonrheumatic aortic valve disorders
CPT/HCPCS: 77080; 93306

== ENCOUNTER → 2023-05-02 | Outpatient (CLI) | payer MEDICARE, OTHER, SELFPAY ==
[2023-05-02 13:51] LABS: Erythrocyte Sedimentation Rate 59 mm/hr (0-30)
[2023-05-02 13:53] LABS: Absolute Lymphocyte Count 1.58 X10^3/uL (0.83-4.51); Absolute Neutrophil Count 8.6 X10^3/uL (2.0-7.7); Basophil# 0.14 X10^3/uL; Basophil% 1.3 % (0-1); Eosinophil# 0.09 X10^3/uL; Eosinophils% 0.8 % (0-5); Hematocrit 41.4 % (37-47); Hemoglobin 13.1 g/dL (12.0-15.0); Lymphocyte # 1.58 X10^3/ul (0.83-4.51); Lymphocyte % 14.6 % (19-41); Mean Corp Hgb Conc 31.6 g/dL (32-36); Mean Corpuscular Hgb 27.6 pg (27.0-32.0); Mean Corpuscular Volume 87.2 fL (81-99); Mean Platelet Vol. 12.8 fl (6.2-12.0); Monocyte# 0.28 X10^3/uL; Monocyte% 2.6 % (0-10); NRBC Flagged by Analyzer 0 % (0-5); Neutrophil # 8.63 X10^3/uL (2.7-7.7); Platelet Count 315 K/mm3 (150-450); RBC Distribution Width CV 14.2 % (11.6-14.6); RBC Distribution Width SD 45.3 fl (35.1-43.9); Red Blood Count 4.75 M/mm3 (4.2-5.4); White Blood Count 10.8 K/mm3 (4.4-11.0)
[2023-05-02 14:07] LABS: AST(SGOT) 13 U/L (15-37); Alanine Aminotransfer ALT/SGPT 18 U/L (13-56); Creatinine, Serum 0.67 mg/dL (0.55-1.02); EST Glomerular Filtration Rate 92 mL/min (>60); Est Glom Filt Rate - Afr Amer 112 mL/min (>60)
== END | disposition home or self-care (01) ==
LOC: LAB 12:45
PROVIDERS: PCP Family Medicine; Referring Provider Internal Medicine Rheumatology; Visit Provider Internal Medicine Rheumatology
DX: M05.79 Rheumatoid arthritis with rheumatoid factor of multiple sites without organ or systems involvement (principal); R76.8 Other specified abnormal immunological findings in serum; Z79.620 Long term (current) use of immunosuppressive biologic; R74.8 Abnormal levels of other serum enzymes; R79.82 Elevated C-reactive protein (CRP); R79.89 Other specified abnormal findings of blood chemistry; Z87.39 Personal history of other diseases of the musculoskeletal system and connective tissue; D89.2 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, unspecified; Z79.52 Long term (current) use of systemic steroids; Z79.899 Other long term (current) drug therapy; Z79.631 Long term (current) use of antimetabolite agent; M18.0 Bilateral primary osteoarthritis of first carpometacarpal joints; E55.9 Vitamin D deficiency, unspecified; E03.9 Hypothyroidism, unspecified; M19.041 Primary osteoarthritis, right hand; M19.042 Primary osteoarthritis, left hand; M19.031 Primary osteoarthritis, right wrist; M19.032 Primary osteoarthritis, left wrist; D64.9 Anemia, unspecified
CPT/HCPCS: 36415; 82565; 84450; 84460; 85025; 85652; 86140

== ENCOUNTER → 2023-06-24 | Outpatient (CLI) | payer MEDICARE, OTHER, SELFPAY ==
[2023-06-24 14:57] LABS: Hemoglobin A1c 11.9 % (3.8-5.6)
[2023-06-24 15:14] LABS: T4 Free Direct 1.17 ng/dL (0.76-1.46)
== END | disposition home or self-care (01) ==
PROVIDERS: PCP Family Medicine; Referring Provider Internal Medicine Endocrinology, Diabetes & Metabolism; Visit Provider Internal Medicine Endocrinology, Diabetes & Metabolism
DX: E03.9 Hypothyroidism, unspecified (principal); E11.65 Type 2 diabetes mellitus with hyperglycemia
CPT/HCPCS: 36415; 83036; 84439; 84443

== ENCOUNTER 2023-09-23 12:06 | Outpatient (RCR) | payer MEDICARE, OTHER, SELFPAY ==
[2023-09-23 12:47] LABS: Erythrocyte Sedimentation Rate 29 mm/hr (0-30)
[2023-09-23 12:48] LABS: Absolute Lymphocyte Count 2.45 X10^3/uL (0.83-4.51); Absolute Neutrophil Count 5.4 X10^3/uL (2.0-7.7); Basophil# 0.13 X10^3/uL; Basophil% 1.5 % (0-1); Eosinophil# 0.18 X10^3/uL; Eosinophils% 2.1 % (0-5); Hematocrit 37.9 % (37-47); Hemoglobin 12.4 g/dL (12.0-15.0); Lymphocyte # 2.45 X10^3/ul (0.83-4.51); Lymphocyte % 28.4 % (19-41); Mean Corp Hgb Conc 32.7 g/dL (32-36); Mean Corpuscular Hgb 29.7 pg (27.0-32.0); Mean Corpuscular Volume 90.7 fL (81-99); Mean Platelet Vol. 12.4 fl (6.2-12.0); Monocyte% 4.6 % (0-10); NRBC Flagged by Analyzer 0 % (0-5); Neutrophil # 5.42 X10^3/uL (2.7-7.7); Neutrophil % 62.8 % (47-70); Platelet Count 229 K/mm3 (150-450); RBC Distribution Width CV 14.6 % (11.6-14.6); RBC Distribution Width SD 47.8 fl (35.1-43.9); Red Blood Count 4.18 M/mm3 (4.2-5.4); White Blood Count 8.6 K/mm3 (4.4-11.0)
[2023-09-23 15:42] LABS: AST(SGOT) 13 U/L (15-37); Alanine Aminotransfer ALT/SGPT 16 U/L (13-56); CRP 4.71 mg/L (0.0-3.0); Creatinine, Serum 0.68 mg/dL (0.55-1.02); EST Glomerular Filtration Rate 90 mL/min (>60); Est Glom Filt Rate - Afr Amer 109 mL/min (>60)
== END 2023-10-14 23:46 | disposition home or self-care (01) ==
LOC: LAB 12:06
PROVIDERS: PCP Family Medicine; Referring Provider Internal Medicine Rheumatology; Visit Provider Internal Medicine Rheumatology
DX: M05.79 Rheumatoid arthritis with rheumatoid factor of multiple sites without organ or systems involvement (principal); R76.8 Other specified abnormal immunological findings in serum; Z79.631 Long term (current) use of antimetabolite agent; Z79.899 Other long term (current) drug therapy; Z79.620 Long term (current) use of immunosuppressive biologic; Z87.39 Personal history of other diseases of the musculoskeletal system and connective tissue; Z96.611 Presence of right artificial shoulder joint; R79.82 Elevated C-reactive protein (CRP); M19.031 Primary osteoarthritis, right wrist; M19.032 Primary osteoarthritis, left wrist; M19.041 Primary osteoarthritis, right hand; M19.042 Primary osteoarthritis, left hand; M18.0 Bilateral primary osteoarthritis of first carpometacarpal joints
CPT/HCPCS: 36415; 82565; 84450; 84460; 85025; 85652; 86140

== ENCOUNTER 2023-10-08 11:35 | Inpatient (IN) | payer MEDICARE, OTHER, SELFPAY ==
[2023-10-08] VITALS (15 sets, daily range): BP systolic 66–145; BP diastolic 41–72; PULSE 68–128; RESP 18–28; TEMP 34.4–36.4; O2SAT 94–100; BMI 23.4; BMI 20.9
--- NOTE | 2023-10-08 11:47 | EKG12_ITS ---
Test Reason : Blood Pressure : / mmHG Vent. Rate : 103 BPM Atrial Rate : 119 BPM P-R Int : 176 ms QRS Dur : 068 ms QT Int : 344 ms P-R-T Axes : 000 -01 139 degrees QTc Int : 450 ms Sinus tachycardia with Premature atrial complexes Nonspecific ST and T wave abnormality Abnormal ECG Confirmed by DANO CROSS, GIOVANA ([id number]), news assignment editor OSMAN ZAZUETA ([id number]) on 10/13/2023 10:05:39 AM Referred By: Confirmed By:ALBINA MATSON MD
--- NOTE | 2023-10-08 11:47 | CT_ITS ---
STUDY: CT BRAIN WITHOUT CONTRAST REASON FOR EXAM: Female, 73 years old. weakness x 4-5 days, hypertension RADIATION DOSAGE (If Supplied By Facility): CTDIvol = ( 44.99 ) mGy, DLP = ( 779.24 ) mGycm TECHNIQUE: Transaxial CT imaging of the brain was performed without administration of intravenous contrast material. Individualized dose optimization techniques were used for this CT. COMPARISON: None. FINDINGS: Normal soft tissue structures. Normal calvarium. There is mild cerebral atrophy with widening of the extra-axial spaces and ventricular dilatation. There are areas of decreased attenuation within the white matter tracts of the supratentorial brain, consistent with microvascular disease changes. Normal basal ganglia and thalami. Normal brainstem. Normal cerebellum. There is no intracranial hemorrhage. There are no findings of an acute ischemic infarction. Normal visualized paranasal sinuses. CT/Brain/Head without Contrast IMPRESSION: Chronic involutional changes of the brain. Electronically Signed: Shree Ashford MD at 12:42 EDT ,
--- NOTE | 2023-10-08 11:50 | EX.ED.DYSGE1 ---
HPI History of Present Illness Chief Complaint: Confusion Informant: patient and spouse/S.O. Onset/Context/Timing Onset: Days Narrative Narrative: Patient presents with increasing weakness and confusion over the past week. states that her blood sugars have been very difficult to control, but blood sugars were in the 120s before they left home. Triage nurse notes blood pressure to be 66/41 with tachycardia and blood sugar in the 400s. I was asked to see the patient immediately on arrival. Patient is placed in a bed and placed on monitor and storage bin tender. Blood pressure is 89 systolic at this time. Repeat blood sugar at bedside is currently 112. states that the patient's insulin was changed about a week ago because what she had been on is no longer being made. Since that time they have had a very difficult time controlling her blood sugars. Patient denies chest pain or shortness of breath. She denies nausea or vomiting. confirms that she has been drinking but has not eaten at least 3 days. [facility] Medical History Chronic anemia Diabetes mellitus, type 2 Former tobacco use HTN (hypertension) Hypothyroidism Rheumatoid arthritis Home Medications folic acid 400 mcg tablet 0.4 mg PO DAILY SUPPLEMENT 03/15/22 [History Last Taken 01/13/23] levothyroxine 150 mcg tablet 150 mcg PO DAILY THYROID 03/15/22 [History Last Taken 01/13/23] losartan 25 mg tablet 25 mg PO DAILY BLOOD PRESSURE 03/15/22 [History Last Taken 01/13/23] magnesium oxide 400 mg PO DAILY SUPPLEMENT 03/15/22 [History Last Taken 01/13/23] methotrexate sodium 2.5 mg tablet 12.5 mg PO QWEEK inflammation 03/15/22 [History Last Taken Unknown] prednisone 5 mg tablet 5 mg PO DAILY arthritis 01/10/23 [History Last Taken Unknown] sertraline 25 mg tablet 25 mg PO DAILY depression 01/10/23 [History Last Taken Unknown] insulin detemir U-100 100 unit/mL (3 mL) subcutaneous pen (Levemir FlexPen) 38 unit subcut QHS DMII 01/11/23 [History Last Taken Unknown] insulin aspart U-100 100 unit/mL (3 mL) subcutaneous pen (Novolog FlexPen U-100 Insulin aspart) 5 unit (0.05 mL) subcut TID glucose control #15 mL 01/13/23 [Rx Last Taken Unknown] acetaminophen 500 mg tablet 1,000 mg (2 x 500 mg) PO Q8 #0 tabs 02/12/23 [Rx Last Taken Unknown] oxycodone 5 mg tablet 5 mg PO Q4H PRN PRN Pain Score 4-10 3 days #18 tabs 02/12/23 [Rx Last Taken Unknown] insulin glargine 100 unit/mL (3 mL) subcutaneous pen (Lantus Solostar U-100 Insulin) 16 unit subcut BID 10/08/23 [History Last Taken Unknown] insulin lispro 100 unit/mL subcutaneous pen (Humalog KwikPen (U-100) Insulin) 15 unit subcut TID 10/08/23 [History Last Taken Unknown] Allergy/AdvReac Type Severity Reaction Status Date / Time egg [eggs] AdvReac Vomiting Verified 10/08/23 11:36 Family History Mother Diabetes Heart disease Father Diabetes Cancer Throat cancer Surgical History H/O: s/p right shoulder surgery Social History household members: spouse Smoking Status: Former smoker alcohol intake: never substance use type: does not use ROS ROS ED Review of Systems ROS Unobtainable: due to mental condition Constitutional Constitutional ED: Denies chills or fever(s) ENT ENT ED: Denies rhinorrhea or sore throat Cardiovascular Cardiovascular: Denies chest pain Respiratory/Chest Respiratory/Chest: Denies cough or dyspnea Gastrointestinal Gastrointestinal: Reports diarrhea; Denies abdominal pain Neurologic Neurologic: Reports weakness EXAM Physical Exam Const Vital Signs: 10/08/23 11:37 10/08/23 11:40 10/08/23 12:45 Temperature 94 F L 97.2 F L Temperature Source Temporal Oral Pulse Rate 128 H 111 H 90 Respiratory Rate 18 24 H 18 Blood Pressure 66/41 L 81/72 L 104/68 Blood Pressure Mean 49 75 80 Pulse Ox 94 97 Oxygen Delivery Method Room Air Room Air 10/08/23 13:00 10/08/23 14:00 10/08/23 15:00 Temperature Temperature Source Pulse Rate 68 122 H 119 H Respiratory Rate 21 H 21 H 20 H Blood Pressure 117/59 L 120/70 108/61 Blood Pressure Mean 78 85 76 Pulse Ox 96 99 99 Oxygen Delivery Method Room Air Positive well nourished and well developed General Appearance ED: well developed HEENT Reports moist mucous membranes Eyes EOMs intact bilaterally Chest Wall inspection of chest normal and palpation of chest normal Resp clear to auscultation bilaterally Resp Narrative: Mild tachypnea. Cardio Rate: tachycardic GI non-tender Auscultation: normoactive bowel sounds Palpation: soft Extremity Extremity Narrative: Patient moves all 4 extremities. Feet are cool to the touch bilaterally. Neuro Neuro Narrative: Patient alert to self and will answer simple yes and no questions. MDM MDM MDM Narrative Medical decision making narrative: Patient placed on monitor and storage bin tender. EKG obtained to evaluate for cardiac arrhythmia/ischemia. IV line established. IV fluid bolus initiated. Labwork obtained to evaluate for leukocytosis, anemia, and electrolyte derangement. Chest x-ray obtained to evaluate for acute lung pathology, cardiac size, or mediastinal abnormality. Urinalysis obtained to evaluate for infection/hematuria. Blood and urine cultures obtained. Given her confusion and weakness a head CT will be obtained to evaluate for any acute intracranial abnormalities. History & Record Review Discussion w/independent historian: Patient and Significant other Additional record(s) reviewed:: Prior labs Lab Data Attestation: I reviewed the patient's lab results. Labs: Laboratory Results - last 24 hr 10/08/23 10/08/23 10/08/23 11:45 11:50 12:45 WBC 18.2 H RBC 4.90 Hgb 14.3 Hct 42.1 MCV 85.9 MCH 29.2 MCHC 34.0 RDW Std Deviation 44.8 H RDW Coeff of Mateus 14.4 Plt Count 340 MPV 12.0 Immature Gran % (Auto) 0.600 Neut % (Auto) 83.5 H Lymph % (Auto) 9.5 L Dougherty % (Auto) 5.8 Eos % (Auto) 0.1 Baso % (Auto) 0.5 Absolute Neuts (auto) 15.2 H Absolute Lymphs (auto) 1.74 Nucleated RBC % 0 PT 13.2 INR 1.0 APTT 29.6 Sodium 130 L Potassium 3.1 L Chloride 97 L Carbon Dioxide 18.0 L Anion Gap 15 BUN 41 H Creatinine 1.50 H Est GFR (MDRD) Af Amer 44 L Est GFR (MDRD) Non-Af 36 L BUN/Creatinine Ratio 27.3 H Glucose 122 H Lactic Acid 2.6 H* Calcium 10.4 H Total Bilirubin 0.60 Direct Bilirubin 0.17 AST 20 ALT 18 Alkaline Phosphatase 157 H Troponin I High Sens 154 H* Total Protein 7.7 Albumin 3.3 Globulin 4.4 H Urine Color Yellow Urine Clarity Clear Urine pH 6.0 Ur Specific [place] 1.020 Urine Protein 30 H Urine Glucose (UA) 1000 H Urine Ketones 150 A* Urine Occult Blood 10 H Urine Nitrite Negative Urine Bilirubin 1 H Urine Urobilinogen 1 H Ur Leukocyte Esterase Negative Urine RBC 0 SEEN Urine WBC 0 SEEN Ur Squamous Epith Cells 0 SEEN Urine Bacteria 0 SEEN Urine Mucus 0 SEEN POC Glucose 112 H 10/08/23 13:38 WBC RBC Hgb Hct MCV MCH MCHC RDW Std Deviation RDW Coeff of Mateus Plt Count MPV Immature Gran % (Auto) Neut % (Auto) Lymph % (Auto) Doug[place] % (Auto) Eos % (Auto) Baso % (Auto) Absolute Neuts (auto) Absolute Lymphs (auto) Nucleated RBC % PT INR APTT Sodium Potassium Chloride Carbon Dioxide Anion Gap BUN Creatinine Est GFR (MDRD) Af Amer Est GFR (MDRD) Non-Af BUN/Creatinine Ratio Glucose Lactic Acid Calcium Total Bilirubin Direct Bilirubin AST ALT Alkaline Phosphatase Troponin I High Sens 134 H* Total Protein Albumin Globulin Urine Color Urine Clarity Urine pH Ur Specific [place] Urine Protein Urine Glucose (UA) Urine Ketones Urine Occult Blood Urine Nitrite Urine Bilirubin Urine Urobilinogen Ur Leukocyte Esterase Urine RBC Urine WBC Ur Squamous Epith Cells Urine Bacteria Urine Mucus POC Glucose Radiography Chest X-Ray - ED: 1 View, Read by ED Physician, Chronic Changes and No Infiltrates Diagnostic Testing: Clinical Impression(s) from Imaging Studies Brain CT 10/08/23 11:47 IMPRESSION: Chronic involutional changes of the brain. Electronically Signed: Shree Ashford MD at 12:42 EDT Reading Location ID and State: [facility] / [place] , Service support , Chest X-Ray 10/08/23 12:35 IMPRESSION: Degenerative changes, as described above. No demonstrated acute cardiopulmonary process. Electronically Signed: Shree Ashford MD at 12:56 EDT , Abdomen/Pelvis CT 10/08/23 14:31 IMPRESSION: 1. No acute process of the abdomen and pelvis. 2. No visualized bowel dilatation or evidence of obstruction. No free air or free fluid is seen. No demonstrated colonic diverticulosis or inflammatory stranding. Electronically Signed: Shree Ashford MD at 15:24 EDT , EKG Initial EKG: Attestation: I personally reviewed and interpreted this EKG as follows: Interpretation: Sinus Tachycardia (Sinus tach at 103 with lateral T wave inversions. This is similar in appearance to prior study from February 2022.) Treatment and Re-Evaluation :: CBC was a white count of 18.2 with 83% neutrophils. Hemoglobin is 14.3. Chemistry studies reveal a sodium of 130 and she appears to have chronic hyponatremia. Potassium is low at 3.1. Bicarb is 18 with a normal anion gap at 15. BUN is 41 and creatinine is 1.50. It appears her creatinine runs around 0.7, last checked earlier this month. Glucose is 122. Lactic acid is elevated at 2.6. LFTs significant only for an alk phos of 157. Initial troponin is elevated at 154 with a 2-hour repeat troponin of 134. Urinalysis reveals no white cells and no bacteria. 150 ketones are noted along with 1000 glucose. Given the patient's significant elevated white count, she was sent for a CT scan of the abdomen and pelvis with IV contrast. This returns with no evidence of acute abnormality. Patient's heart rate had improved to the 80s, but is currently back up around 115. Blood pressure is much improved with systolic pressures in the 110-120 range. Nursing staff does report the patient has been having some diarrhea and stool studies will be ordered. She continues to deny any chest pain or shortness of breath. She is currently receiving IV fluids along with IV potassium replacement. I will speak with the hospitalist regarding admission. Discharge Plan Triage Chief Complaint: Confusion ED Provider: Brandy Green Dx/Rx/DC Orders Clinical Impression: CHERYLE (acute kidney injury), Leukocytosis, Elevated troponin, Dehydration, Hypokalemia, Acidosis, lactic Prescriptions: No Action folic acid 400 mcg Tablet 0.4 mg PO DAILY methotrexate sodium 2.5 mg tablet 12.5 mg PO QWEEK Patient Comments: TAKE 5 (FIVE) tablets BY MOUTH per week losartan 25 mg tablet 25 mg PO DAILY levothyroxine 150 MCG tablet 150 mcg PO DAILY magnesium oxide 400 mg magnesium tablet 400 mg PO DAILY prednisone 5 mg tablet 5 mg PO DAILY Patient Comments: TAKE 1 TABLET BY MOUTH EVERY MORNING sertraline 25 mg tablet 25 mg PO DAILY Patient Comments: Take 1 tablet by mouth daily Levemir FlexPen 100 unit/mL (3 mL) insulin pen 38 unit subcut QHS insulin aspart U-100 [Novolog FlexPen U-100 Insulin] 100 unit/mL (3 mL) insulin pen 5 unit subcut TID Qty: 15 0RF Patient Comments: SLIDING SCALE 3-12 UNITS before meals Rx Instructions: Hold if glucose less than 130 mg/dl acetaminophen 500 mg Tablet 1,000 mg PO Q8 Qty: 0 0RF oxycodone 5 mg Tablet 5 mg PO Q4H PRN PRN (Reason: Pain Score 4-10) 3 Days Qty: 18 0RF insulin lispro [Humalog KwikPen Insulin] 100 unit/mL insulin pen 15 unit subcut TID insulin glargine [Lantus Solostar U-100 Insulin] 100 unit/mL (3 mL) insulin pen 16 unit subcut BID Primary Care Provider: Eric Bravo Referrals: Eric Bravo DO [Primary Care Provider] - Disposition Disposition: Acute Care Hospital [facility]
[2023-10-08] MEDS: 0.9% Normal Saline (1000mL) 1,000 ML 1000 ML IV (11:54)
--- NOTE | 2023-10-08 12:08 | ED.RN ---
Patient incontinent on arrival w/ loose stools, perineal area is excoriated, reddened from tailbone to vagina. Patient painful on cleaning.
[2023-10-08 12:24] LABS: Absolute Lymphocyte Count 1.74 X10^3/uL (0.83-4.51); Absolute Neutrophil Count 15.2 X10^3/uL (2.0-7.7); Basophil% 0.5 % (0-1); Eosinophil# 0.01 X10^3/uL; Eosinophils% 0.1 % (0-5); Hematocrit 42.1 % (37-47); Hemoglobin 14.3 g/dL (12.0-15.0); Lymphocyte # 1.74 X10^3/ul (0.83-4.51); Lymphocyte % 9.5 % (19-41); Mean Corpuscular Hgb 29.2 pg (27.0-32.0); Mean Corpuscular Volume 85.9 fL (81-99); Monocyte# 1.06 X10^3/uL; Monocyte% 5.8 % (0-10); NRBC Flagged by Analyzer 0 % (0-5); Neutrophil # 15.22 X10^3/uL (2.7-7.7); Neutrophil % 83.5 % (47-70); Platelet Count 340 K/mm3 (150-450); RBC Distribution Width CV 14.4 % (11.6-14.6); RBC Distribution Width SD 44.8 fl (35.1-43.9); White Blood Count 18.2 K/mm3 (4.4-11.0)
[2023-10-08 12:29] LABS: Prothrombin Time (Protime)PT. 13.2 SECONDS (11.7-14.9)
[2023-10-08 12:30] LABS: Partial Thromboplast Time 29.6 Seconds (24.1-36.2)
--- NOTE | 2023-10-08 12:35 | RAD_ITS ---
STUDY: X-RAY CHEST REASON FOR EXAM: Female, 73 years old. sob TECHNIQUE: Single AP portable view of the chest. COMPARISON: January 29, 2023 FINDINGS: No visualized consolidation. There are interstitial fibrotic changes of the lungs. There is no demonstrated pleural abnormality. Normal size heart. Normal mediastinum and batool. Normal visualized pulmonary arteries. There is atherosclerotic tortuosity of the aortic arch and descending thoracic aorta. There are diffuse degenerative changes of the visualized thoracic spine. There is degenerative osteoarthritis of the bilateral shoulders. Right shoulder prosthesis is stable. There is no demonstrated abnormality of the visualized soft tissue structures of the upper abdomen. RAD/Chest 1 View (Portable) IMPRESSION: Degenerative changes, as described above. No demonstrated acute cardiopulmonary process. Electronically Signed: Shree Ashford MD at 12:56 EDT ,
[2023-10-08 12:36] LABS: Bacteria 0 SEEN /hpf (None Seen); Mucous, Urine 0 SEEN /hpf (<or=2+); Red Blood Cells-Urine 0 SEEN /hpf (0-5); Squamous Epithelial Cells - UA 0 SEEN /hpf (5-10); White Blood Cells 0 SEEN /hpf (0-5)
[2023-10-08 12:49] LABS: Lactic Acid 2.6 mmol/L (0.4-1.9)
[2023-10-08 12:50] LABS: AST(SGOT) 20 U/L (15-37); Alanine Aminotransfer ALT/SGPT 18 U/L (13-56); Albumin, Serum 3.3 g/dL (3.2-5.0); Alkaline Phosphatase 157 U/L (45-117); Anion Gap 15 (5-15); BUN 41 mg/dL (7-18); BUN/Creat Ratio 27.3 RATIO (10-20); Bilirubin, Direct 0.17 mg/dL (0.00-0.30); Calcium,Total 10.4 mg/dL (8.5-10.1); Chloride 97 mmol/L (98-107); EST Glomerular Filtration Rate 36 mL/min (>60); Est Glom Filt Rate - Afr Amer 44 mL/min (>60); Globulin 4.4 g/dL (2.2-4.2); Glucose 122 mg/dL (74-106); Potassium 3.1 mmol/L (3.5-5.1); Protein, Total 7.7 g/dL (6.4-8.2); Sodium Level 130 mmol/L (136-145); Troponin-I HS 154 pg/mL (3.0-54.0)
[2023-10-08 12:55] LABS: Color, Urine Yellow (Yellow); Glucose, Dipstick 1000 mg/dl (Normal); Leukocyte Esterase-Dipstick Negative /ul (Negative); Nitrite-Dipstick Negative (Negative); Occult Blood-Urine 10 /ul (Negative); Protein-Dipstick 30 mg/dl (Negative); Urine Clarity Clear (Clear); Urine Urobilinogen 1 mg/dl (Normal)
[2023-10-08 12:58] LABS: Ketone-Dipstick 150 mg/dl (Negative); Urine Bilirubin Dipstick 1 mg/dL (Negative)
[2023-10-08 14:17] LABS: Troponin-I HS 134 pg/mL (3.0-54.0)
--- NOTE | 2023-10-08 14:31 | CT_ITS ---
STUDY: CT ABDOMEN AND PELVIS WITH CONTRAST REASON FOR EXAM: Female, 73 years old abdominal pain.. Patient presents with increasing weakness and confusion over the past week. RADIATION DOSAGE (If Supplied By Facility): CTDIvol = ( 12.99 ) mGy, DLP = ( 435.08 ) mGycm TECHNIQUE: Transaxial images were obtained from the dome of the diaphragm to the symphysis pubis without oral contrast. ml of 75mL Isovue-300 contrast was administered. Sagittal and coronal images were reconstructed. Individualized dose optimization techniques were used for this CT. COMPARISON: None. FINDINGS: There are scattered small pulmonary calcifications consistent with old granulomatous disease. Fibrotic scarring is also present in the lung bases. Normal liver. Normal gallbladder and extrahepatic biliary system. Normal spleen. Normal pancreas. Normal bilateral adrenal glands. Normal right kidney. Normal left kidney. Normal visualized stomach. Normal small intestine. Normal colon. The appendix is visualized and appears normal. No visualized bowel dilatation or evidence of obstruction. No free air or free fluid is seen. No demonstrated colonic diverticulosis or inflammatory stranding. There is diffuse atherosclerotic calcification of the abdominal aorta, without a demonstrated aneurysm. Normal inferior vena cava. Normal retroperitoneum. Normal urinary bladder. Unremarkable uterus and adnexal regions. Normal abdominal wall. There are diffuse degenerative changes of the visualized lumbar spine. Redemonstration of multiple chronic compression deformities throughout the thoracic and lumbar spine. CT/Abdomen/Pelvis W IV Cont ONLY IMPRESSION: 1. No acute process of the abdomen and pelvis. 2. No visualized bowel dilatation or evidence of obstruction. No free air or free fluid is seen. No demonstrated colonic diverticulosis or inflammatory stranding. Electronically Signed: Shree Ashford MD at 15:24 EDT Reading Location ID and State: [facility] / [place] , Service support ,
[2023-10-08 14:33] LABS: Bedside Glucose 112 mg/dL (74-106)
[2023-10-08] MEDS: Potassium Chloride 10mEq/100mL 10 MEQ/100 ML IV.SOLN. 100 MEQ IV BOLUS ×4 (14:33→18:53)
[2023-10-08] MEDS: 0.9% Normal Saline (1000mL) 1,000 ML 150 ML IV ×2 (14:34→21:38)
--- NOTE | 2023-10-08 14:37 | ED.RN ---
Pt too confused to relay home meds to this RN. Pt from home where she cares for her .
[2023-10-08 16:13] LABS: Reflex Lactate? Y
--- NOTE | 2023-10-08 16:48 | NURSING ---
DR LAUREANO FOR DR SERRANO
--- NOTE | 2023-10-08 17:06 | NURSING ---
PCU SRIDEVI CHERYLE, HYPOKALEMIA, ELEVATED TROP, LACTIC ACIDOSIS
--- NOTE | 2023-10-08 17:35 | HP.PCM.HOS_ITS ---
HPI - General General Date of Admission: 10/08/23 Date of Service: 10/08/23 Chief Complaint: Confusion HPI Narrative DURAN DEVI, is a 73 F who presents with confusion. Roughly 3 days ago, patient was having diarrhea. Patient cannot qualify how often or quality of it but was notably confused. Patient was sent to the emergency room where her blood pressure was 66/41 and was tachycardic. Blood sugar was in the 400s. Patient did receive IV fluids and blood pressure did improve to the 100s. [facility] Medical History Chronic anemia Diabetes mellitus, type 2 Former tobacco use HTN (hypertension) Hypothyroidism Rheumatoid arthritis Home Medications levothyroxine 150 mcg tablet 150 mcg PO DAILY THYROID 03/15/22 [History Last Taken 01/13/23] losartan 25 mg tablet 25 mg PO DAILY BLOOD PRESSURE 03/15/22 [History Last Taken 01/13/23] magnesium oxide 400 mg PO DAILY SUPPLEMENT 03/15/22 [History Last Taken 01/13/23] methotrexate sodium 2.5 mg tablet 12.5 mg PO QWEEK inflammation 03/15/22 [History Last Taken Unknown] prednisone 5 mg tablet 5 mg PO DAILY arthritis 01/10/23 [History Last Taken Unknown] sertraline 25 mg tablet 25 mg PO DAILY depression 01/10/23 [History Last Taken Unknown] insulin detemir U-100 100 unit/mL (3 mL) subcutaneous pen (Levemir FlexPen) 38 u nit subcut QHS DIABETES 01/11/23 [History Last Taken Unknown] acetaminophen 500 mg tablet 1,000 mg (2 x 500 mg) PO Q8 #0 tabs 02/12/23 [Rx Last Taken Unknown] folic acid 1 mg tablet 1 mg PO DAILY 10/08/23 [History Last Taken Unknown] insulin glargine 100 unit/mL (3 mL) subcutaneous pen (Lantus Solostar U-100 Insulin) 16 unit subcut BID 10/08/23 [History Last Taken Unknown] insulin lispro 100 unit/mL subcutaneous pen (Humalog KwikPen (U-100) Insulin) 15 unit subcut TID 10/08/23 [History Last Taken Unknown] Allergy/AdvReac Type Severity Reaction Status Date / Time egg [eggs] AdvReac Vomiting Verified 10/08/23 11:36 Family History Mother Diabetes Heart disease Father Diabetes Cancer Throat cancer Surgical History H/O: s/p right shoulder surgery Social History household members: spouse Smoking Status: Former smoker alcohol intake: never substance use type: does not use ROS ROS Narrative Limited due to confusion but otherwise all review of systems were negative except as mentioned above in the history of present illness and the other review of systems. Vital Signs Vital Signs Vital Signs: 10/08/23 11:37 10/08/23 11:40 10/08/23 12:45 Temperature 34.4 C L 36.2 C L Temperature Source Temporal Oral Pulse Rate 128 H 111 H 90 Respiratory Rate 18 24 H 18 Blood Pressure 66/41 L 81/72 L 104/68 Blood Pressure Mean 49 75 80 Pulse Ox 94 97 Oxygen Delivery Method Room Air Room Air 10/08/23 13:00 10/08/23 14:00 10/08/23 15:00 Temperature Temperature Source Pulse Rate 68 122 H 119 H Respiratory Rate 21 H 21 H 20 H Blood Pressure 117/59 L 120/70 108/61 Blood Pressure Mean 78 85 76 Pulse Ox 96 99 99 Oxygen Delivery Method Room Air 10/08/23 15:30 10/08/23 15:45 10/08/23 16:00 Temperature Temperature Source Pulse Rate 90 84 118 H Respiratory Rate 22 H 23 H 22 H Blood Pressure 109/61 Blood Pressure Mean 77 Pulse Ox 99 99 98 Oxygen Delivery Method 10/08/23 17:00 Temperature Temperature Source Pulse Rate 86 Respiratory Rate 23 H Blood Pressure 101/52 L Blood Pressure Mean 67 Pulse Ox 99 Oxygen Delivery Method Weight Weight: 60 kg Body Mass Index (BMI) 23.4 Physical Exam Const Constitutional Narrative: Listless. Afebrile. Nontoxic. Knows she is in the hospital, cannot tell me the date. Knows her name. HEENT normocephalic, hearing grossly normal bilaterally and moist oral mucous membranes Resp normal respiratory effort, no retractions, no use of accessory muscles and clear to auscultation bilaterally Cardio regular rate, regular rhythm, S1 normal heart sound and S2 normal heart sound GI normal to inspection, nondistended, normoactive bowel sounds, soft to palpation, non-tender and non-distended Extremity normal to inspection and no clubbing, cyanosis or edema Neuro moves all extremities and no focal motor deficits Sensorium / Orientation: awake and alert Psych Psych Narrative: Flat affect Results Lab / Micro Data Attestation: I reviewed the patient's lab results. 10/08/23 11:50 10/08/23 11:50 Labs: Laboratory Results - last 24 hr 10/08/23 11:45: POC Glucose 112 H 10/08/23 11:50: WBC 18.2 H, RBC 4.90, Hgb 14.3, Hct 42.1, MCV 85.9, MCH 29.2, MCHC 34.0, RDW Std Deviation 44.8 H, RDW Coeff of Mateus 14.4, Plt Count 340, MPV 12.0, Immature Gran % (Auto) 0.600, Neut % (Auto) 83.5 H, Lymph % (Auto) 9.5 L, [place] % (Auto) 5.8, Eos % (Auto) 0.1, Baso % (Auto) 0.5, Absolute Neuts (auto) 15.2 H, Absolute Lymphs (auto) 1.74, Nucleated RBC % 0, PT 13.2, INR 1.0, APTT 29.6, Sodium 130 L, Potassium 3.1 L, Chloride 97 L, Carbon Dioxide 18.0 L, Anion Gap 15, BUN 41 H, Creatinine 1.50 H, Est GFR (MDRD) Af Amer 44 L, Est GFR (MDRD) Non-Af 36 L, BUN/Creatinine Ratio 27.3 H, Glucose 122 H, Lactic Acid 2.6 H*, Calcium 10.4 H, Total Bilirubin 0.60, Direct Bilirubin 0.17, AST 20, ALT 18, Alkaline Phosphatase 157 H, Troponin I High Sens 154 H*, Total Protein 7.7, Albumin 3.3, Globulin 4.4 H 10/08/23 12:45: Urine Color Yellow, Urine Clarity Clear, Urine pH 6.0, Ur Speci fic [place] 1.020, Urine Protein 30 H, Urine Glucose (UA) 1000 H, Urine Ketones 150 A*, Urine Occult Blood 10 H, Urine Nitrite Negative, Urine Bilirubin 1 H, Urine Urobilinogen 1 H, Ur Leukocyte Esterase Negative, Urine RBC 0 SEEN, Urine WBC 0 SEEN, Ur Squamous Epith Cells 0 SEEN, Urine Bacteria 0 SEEN, Urine Mucus 0 SEEN 10/08/23 13:38: Troponin I High Sens 134 H* 10/08/23 16:36: Lactic Acid 1.0 Micro: Microbiology 10/08/23 16:30 Stool Stool Lactoferrin - Final EKG Initial EKG: Attestation: I personally reviewed and interpreted this EKG as follows: Prior EKG tracings: available for review EKG Rhythm Intrepretation: Sinus Rhythm (Right bundle branch block. No acute changes.) Imaging Radiology Impression Brain CT 10/08/23 11:47 IMPRESSION: Chronic involutional changes of the brain. Electronically Signed: Shree Ashford MD at 12:42 EDT , Chest X-Ray 10/08/23 12:35 IMPRESSION: Degenerative changes, as described above. No demonstrated acute cardiopulmonary process. Electronically Signed: Shree Ashford MD at 12:56 EDT , Abdomen/Pelvis CT 10/08/23 14:31 IMPRESSION: 1. No acute process of the abdomen and pelvis. 2. No visualized bowel dilatation or evidence of obstruction. No free air or free fluid is seen. No demonstrated colonic diverticulosis or inflammatory stranding. Electronically Signed: Shree Ashford MD at 15:24 EDT , Assessment & Plan Assessment/Plan (1) Encephalopathy: (2) Adrenal insufficiency: (3) Diarrhea: PLAN: Plan Encephalopathy * I suspect metabolic due to dehydration, diarrhea and possibly component of adrenal insufficiency * Avoid potentiating medications * Treat the underlying processes Adrenal insufficiency * Suspected as patient takes prednisone chronically * Patient did have hypotension when she initially presented but that is since resolved * Will treat her with 50 mg of hydrocortisone 3 times daily as she seems to be improving. If she continues to improve then likely can be de-escalated over to prednisone 40 mg daily and then tapered down to her daily dose of 5 mg. Hypotension * Due to dehydration and possibly adrenal insufficiency * Currently resolved * Hold losartan for now Diarrhea * Unclear etiology * Check C. difficile Chronic conditions * Rheumatoid arthritis: Hold off on methotrexate for now. Prednisone to be jacinto ged over to hydrocortisone for now. * Hypothyroidism: Continue with levothyroxine * Diabetes mellitus type 2: Continue with glargine, prandial insulin and sliding scale insulin. VTE prophylaxis with enoxaparin CODE STATUS: Addressed with the patient. Patient wished to be full code. Charges/Coding Visit Charges Inpatient E&M: 17601 Init Hosp L3
--- NOTE | 2023-10-08 19:34 | ED.RN ---
pt's wanted to know what the pt's blood sugar was so checked it,blood sugar 277.
[2023-10-08 19:40] LABS: Bedside Glucose 277 mg/dL (74-106)
[2023-10-08 21:12] LABS: Troponin-I HS 148 pg/mL (3.0-54.0)
[2023-10-08] MEDS: Acetaminophen 500 MG Tablet 1000 MG PO (22:35)
[2023-10-08] MEDS: 0.9% Saline Lock 10 ML Syringe IV (22:35)
[2023-10-08] MEDS: Hydrocortisone Sod Succinate 100 MG/2 ML Vial 50 MG IV (22:35)
[2023-10-08] MEDS: Menthol/Lanolin/Calamine/Znox 113 GM Tube 1 APPLIC TOPICAL (22:35)
[2023-10-08 23:02] LABS: Bedside Glucose 416 mg/dL (74-106)
[2023-10-08] MEDS: Insulin Lispro 100 UNIT/ML INSULN.PEN SC (23:10)
[2023-10-08] MEDS: Insulin Glargine-YFGN 100 UNIT/ML Pen 32 UNIT SC (23:11)
[2023-10-09] VITALS (15 sets, daily range): BP systolic 89–147; BP diastolic 50–77; PULSE 78–127; RESP 16–25; TEMP 36.1–36.6; O2SAT 96–100
[2023-10-09 00:21] LABS: Bedside Glucose 437 mg/dL (74-106)
[2023-10-09] MEDS: 0.9% Normal Saline (1000mL) 1,000 ML 150 ML IV ×2 (04:43→11:29)
[2023-10-09 06:05] LABS: Hematocrit 36.8 % (37-47); Mean Corp Hgb Conc 32.6 g/dL (32-36); Mean Corpuscular Hgb 29.5 pg (27.0-32.0); Mean Corpuscular Volume 90.4 fL (81-99); Mean Platelet Vol. 11.9 fl (6.2-12.0); POSITIVE MORPHOLOGY YES; Platelet Count 248 K/mm3 (150-450); RBC Distribution Width CV 14.9 % (11.6-14.6); RBC Distribution Width SD 48.7 fl (35.1-43.9); Red Blood Count 4.07 M/mm3 (4.2-5.4); White Blood Count 16.7 K/mm3 (4.4-11.0)
[2023-10-09] MEDS: Menthol/Lanolin/Calamine/Znox 113 GM Tube 1 APPLIC TOPICAL ×2 (06:17→21:29)
[2023-10-09] MEDS: Hydrocortisone Sod Succinate 100 MG/2 ML Vial 50 MG IV ×3 (06:17→21:29)
[2023-10-09] MEDS: Levothyroxine 150 MCG Tablet PO (06:17)
[2023-10-09] MEDS: Acetaminophen 500 MG Tablet 1000 MG PO ×2 (06:17→21:28)
[2023-10-09] MEDS: Insulin Lispro 100 UNIT/ML INSULN.PEN SC (06:26)
[2023-10-09] MEDS: 0.9% Saline Lock 10 ML Syringe IV ×2 (06:26→21:29)
[2023-10-09 06:53] LABS: Bedside Glucose 155 mg/dL (74-106)
[2023-10-09 07:00] LABS: Differential Indicated MANUAL DIFF
[2023-10-09 07:04] LABS: Lymphocyte 5 % (19-41); Monocyte 2 % (0-10); Neutrophil-Band 5 % (0-5); Neutrophil-Segmented 88 % (47-70); Nucleated Red Bld Cells,Manual 1 % (0-5); Total Cells Counted 100 (MANUAL DIFF)
[2023-10-09 07:06] LABS: Anisocytosis 1+; Ovalocyte 1+; Platelet Estimate ADEQUATE (ADEQ)
[2023-10-09 07:09] LABS: Magnesium 1.7 mg/dL (1.6-2.6); Phosphorus 2.5 mg/dL (2.5-4.9)
[2023-10-09 07:10] LABS: Absolute Neutrophil Count 15.5 X10^3/uL (2.0-7.7)
[2023-10-09 07:42] LABS: Anion Gap 17 (5-15); BUN 30 mg/dL (7-18); BUN/Creat Ratio 36.7 RATIO (10-20); Calcium,Total 8.6 mg/dL (8.5-10.1); Chloride 108 mmol/L (98-107); Creatinine, Serum 0.82 mg/dL (0.55-1.02); EST Glomerular Filtration Rate 73 mL/min (>60); Est Glom Filt Rate - Afr Amer 89 mL/min (>60); Estimated Creatinine Clearance 54.34 ml/min; Glucose 202 mg/dL (74-106); Potassium 4.1 mmol/L (3.5-5.1); Sodium Level 134 mmol/L (136-145)
[2023-10-09] MEDS: Enoxaparin 40 MG/0.4 ML Syringe SC (08:22)
[2023-10-09] MEDS: Folic Acid 1 MG Tablet PO (08:22)
[2023-10-09] MEDS: Insulin Lispro 100 UNIT/ML INSULN.PEN 15 UNIT SC (08:24)
--- NOTE | 2023-10-09 08:32 | PN.HOSP_ITS ---
Reason for Visit Reason for Visit: Diagnoses Unspecified adrenocortical insufficiency (10/08/23) Encephalopathy, unspecified (10/08/23) Diarrhea, unspecified (10/08/23) Objective Data Objective Data Vital Signs: Vital Signs Temp Pulse Resp BP Pulse Ox O2 Del Method 97.0 F L 124 H 18 110/68 99 Room Air 10/09/23 08:16 10/09/23 08:16 10/09/23 08:16 10/09/23 08:16 10/09/23 08:16 10/09/23 08:16 Oxygen Delivery Method Room Air Weight: 121 lb 11.123 oz Body Mass Index (BMI) 20.9 Intake & Output: Intake and Output for Last 24 Hours 10/07/23 10/08/23 10/09/23 23:59 23:59 23:59 Intake Total 3080 / 3080 1100 / 1100 Output Total 500 / 500 0 / 0 Balance 2580 / 2580 1100 / 1100 Lab / Micro Data 10/09/23 05:45 10/09/23 05:45 Labs: Laboratory Results - last 24 hr 10/08/23 11:45: POC Glucose 112 H 10/08/23 11:50: WBC 18.2 H, RBC 4.90, Hgb 14.3, Hct 42.1, MCV 85.9, MCH 29.2, MCHC 34.0, RDW Std Deviation 44.8 H, RDW Coeff of Mateus 14.4, Plt Count 340, MPV 12.0, Immature Gran % (Auto) 0.600, Neut % (Auto) 83.5 H, Lymph % (Auto) 9.5 L, [place] % (Auto) 5.8, Eos % (Auto) 0.1, Baso % (Auto) 0.5, Absolute Neuts (auto) 15.2 H, Absolute Lymphs (auto) 1.74, Nucleated RBC % 0, PT 13.2, INR 1.0, APTT 29.6, Sodium 130 L, Potassium 3.1 L, Chloride 97 L, Carbon Dioxide 18.0 L, Anion Gap 15, BUN 41 H, Creatinine 1.50 H, Est GFR (MDRD) Af Amer 44 L, Est GFR (MDRD) Non-Af 36 L, BUN/Creatinine Ratio 27.3 H, Glucose 122 H, Lactic Acid 2.6 H*, Calcium 10.4 H, Total Bilirubin 0.60, Direct Bilirubin 0.17, AST 20, ALT 18, Alkaline Phosphatase 157 H, Troponin I High Sens 154 H*, Total Protein 7.7, Albumin 3.3, Globulin 4.4 H 10/08/23 12:45: Urine Color Yellow, Urine Clarity Clear, Urine pH 6.0, Ur Specific Gate 1.020, Urine Protein 30 H, Urine Glucose (UA) 1000 H, Urine Ketones 150 A*, Urine Occult Blood 10 H, Urine Nitrite Negative, Urine Bilirubin 1 H, Urine Urobilinogen 1 H, Ur Leukocyte Esterase Negative, Urine RBC 0 SEEN, Urine WBC 0 SEEN, Ur Squamous Epith Cells 0 SEEN, Urine Bacteria 0 SEEN, Urine Mucus 0 SEEN 10/08/23 13:38: Troponin I High Sens 134 H* 10/08/23 16:36: Lactic Acid 1.0 10/08/23 19:21: POC Glucose 277 H 10/08/23 20:37: Troponin I High Sens 148 H* 10/08/23 22:41: POC Glucose 416 H 10/08/23 23:55: POC Glucose 437 H 10/09/23 05:45: WBC 16.7 H, RBC 4.07 L, Hgb 12.0, Hct 36.8 L, MCV 90.4 D, MCH 29.5, MCHC 32.6, RDW Std Deviation 48.7 H, RDW Coeff of Mateus 14.9 H, Plt Count 248, MPV 11.9, Neut % (Auto) Not Reportable, Absolute Neuts (auto) 15.5 H, Absolute Lymphs (auto) 0.80 L, Total Counted 100, Neutrophils % (Manual) 88 H, Band Neutrophils % 5, Lymphocytes % (Manual) 5 L, Monocytes % (Manual) 2, Nucleated RBCs/100 WBC 1, Diff Path Review October, Platelet Estimate ADEQUATE, Anisocytosis 1+, Ovalocytes 1+, Sodium 134 L, Potassium 4.1, Chloride 108 H, Carbon Dioxide 9.0 L*, Anion Gap 17 H, BUN 30 H, Creatinine 0.82, Estim Creat Clear Calc 54.34, Est GFR (MDRD) Af Amer 89, Est GFR (MDRD) Non-Af 73, BUN/Creatinine Ratio 36.7 H, Glucose 202 H, Calcium 8.6, Phosphorus 2.5, Magnesium 1.7 04/25/24 06:25: POC Glucose 155 H Micro: Microbiology 10/08/23 16:30 Stool Stool Lactoferrin - Final 10/08/23 16:30 Stool Clostridioides difficile (PCR) - Final Radiography Diagnostic Testing: Radiology Impression Brain CT 10/08/23 11:47 IMPRESSION: Chronic involutional changes of the brain. Electronically Signed: Shree Ashford MD at 12:42 EDT , Chest X-Ray 10/08/23 12:35 IMPRESSION: Degenerative changes, as described above. No demonstrated acute cardiopulmonary process. Electronically Signed: Shree Ashford MD at 12:56 EDT , Abdomen/Pelvis CT 10/08/23 14:31 IMPRESSION: 1. No acute process of the abdomen and pelvis. 2. No visualized bowel dilatation or evidence of obstruction. No free air or free fluid is seen. No demonstrated colonic diverticulosis or inflammatory stranding. Electronically Signed: Shree Ashford MD at 15:24 EDT , Physical Exam Narrative Listless. Afebrile. Nontoxic. Knows she is in the hospital, cannot tell me the date. Knows her name. Assessment & Plan Assessment/Plan (1) Encephalopathy: (2) Adrenal insufficiency: (3) Diarrhea: PLAN: Plan 73-year-old female came to ED for generalized weakness confusion over last 1 week. As per the caregiver, her states her blood sugar have been difficult to control. Patient insulin was changed last week as per . Blood pressure was low 66/41 with tachycardia in ED and blood sugar in 400s. DKA with euglycemia/hypoglycemia with history of type 2 diabetes mellitus: Bicarb decreased from 18-9.0, anion gap 15-17. Hyponatremia possible due to hypoglycemia/DKA patient is dehydrated.. Lactic acid normal. Serum magnesium phosphorus and calcium are normal. Serum acetone negative.Glucose in BMP 202. Serum osmolality 295. ABG shows metabolic acidosis 7.38/22.6/86 suggestive of well compensated increased anion gap metabolic acidosis. Patient diagnosed with DKA with euglycemia/hypoglycemia. Usually seen with patient on SGLT2 inhibitor but patient is not as per home medications. DKA order set ordered but even before starting insulin drip glucose dropped to 26 given 1 D50. Discussed with nursing staff manage insulin drip discontinued. Accu-Cheks every 1 hour with hypoglycemia protocol. Acute encephalopathy * Suspected metabolic due to dehydration, diarrhea possible hypoglycemia and possibly component of adrenal insufficiency * Avoid potentiating medications * Treat the underlying processes Adrenal insufficiency * Suspected as patient takes prednisone chronically * Patient did have hypotension when she initially presented but that is since resolved. * 50 mg of hydrocortisone 3 times daily as she seems to be improving. * 10/08: Continue home dose of hydrocortisone and she needs distress tolerance being in DKA. Once she is out of ICU, will need to change to prednisone and taper down gradually to her daily dose of 5 mg daily. Cortisol a.m. tomorrow Hypotension possible due to DKA, and adrenal insufficiency * Due to dehydration and possibly adrenal insufficiency * BP 110/68 pulse rate 124. Sinus tachycardia * Hold losartan. Diarrhea * Unclear etiology * Stool for C. difficile enteric bacteriology panel are negative. Lactoferrin positive.Blood cultures x 2 and urine culture are pending. Chronic conditions * Rheumatoid arthritis: Hold off on methotrexate for now. Prednisone to be changed over to hydrocortisone for now. * Hypothyroidism: Continue with levothyroxine 150 mcg daily 10/08: TSH and free T4 ordered for tomorrow AM. VTE prophylaxis with enoxaparin CODE STATUS: Addressed with the patient. Patient wished to be full code. Total time of the visit including total time spent in counseling or coordination of care, (more than 50% of the total time, spent in obtaining medical information from nurses and other ancillary care providers,explaining to the patient about labs, imaging, diagnosis and management of active complex medical conditions), coordination of care with nursing staff, respiratory therapist, review of labs and imaging is 40 minutes. Charges/Coding Visit Charges Inpatient E&M: 21943 [facility]
[2023-10-09 09:26] LABS: Allen Test Positive; Base Excess -12 mmol/L (-2 to +2); Bicarbonate 13.5 mmol/L (22-26); Blood Gas Specimen Type ART; Mode Not entered; O2 Delivery Device Room Air; PO2 86 mmHG (75-100); SITE R Radial; SO2 97 % (95-99); Total Carbon Dioxide 14 mmol/L; pCO2 22.6 mmHg (35-45); pH 7.38 (7.35-7.45)
[2023-10-09 10:56] LABS: Osmolality, Serum 285 mOsm/KG (280-301)
[2023-10-09] MEDS: Dextrose 50%-Water 25 GM/50 ML DISP.SYRIN IV ×3 (11:12→15:46)
[2023-10-09 11:17] LABS: AST(SGOT) 24 U/L (15-37); Alanine Aminotransfer ALT/SGPT 17 U/L (13-56); Albumin, Serum 2.6 g/dL (3.2-5.0); Alkaline Phosphatase 130 U/L (45-117); Bilirubin, Direct 0.11 mg/dL (0.00-0.30); Globulin 3.4 g/dL (2.2-4.2)
--- NOTE | 2023-10-09 11:53 | CASEMGMT ---
Pt RN states the pt is confused and will not be able to answer questions accordingly. TC to pt at this time, no answer. VM left. Awaiting return call.
[2023-10-09 12:13] LABS: Bedside Glucose 117 mg/dL (74-106)
[2023-10-09 12:33] LABS: Anion Gap 9 (5-15); BUN 26 mg/dL (7-18); BUN/Creat Ratio 34.6 RATIO (10-20); Calcium,Total 8.6 mg/dL (8.5-10.1); Chloride 109 mmol/L (98-107); Creatinine, Serum 0.75 mg/dL (0.55-1.02); EST Glomerular Filtration Rate 81 mL/min (>60); Est Glom Filt Rate - Afr Amer 98 mL/min (>60); Glucose 124 mg/dL (74-106); Potassium 3.3 mmol/L (3.5-5.1); Sodium Level 136 mmol/L (136-145)
[2023-10-09] MEDS: 0.9% Normal Saline (1000mL) 1,000 ML 999 ML IV (12:33)
[2023-10-09 13:16] LABS: Bedside Glucose 28 mg/dL (74-106)
[2023-10-09 13:16] LABS: Bedside Glucose 26 mg/dL (74-106)
[2023-10-09] MEDS: 0.9% Normal Saline (1000mL) 1,000 ML 500 ML IV (13:42)
--- NOTE | 2023-10-09 14:37 | CASEMGMT ---
RN UMANG Assessment This RN CM was able to contact the pt for assessment d/t the pt disorientation. Pt states agreeable to answering this MARILYN HECK questions for initial assessment.Care providers, pharmacy, and demographics verified. Admitting dx: CHERYLE PCP: Eric Bravo Specialists: Hussein ()Robby (Kevin) Preferred Pharmacy: [facility] Insurance: [facility] A/B, [place] [facility] [place] Prescription Benefit: Yes LNOK: Mir Stileslion (H), Vinh Padilladayronolimpia (Son - Lives in [place]) Living Arrangements: Pt lives with her in a 2 story home with a BM with a FFSU and a flat entrance. ADLs/IADLs: helps Transportation: DME: [employer] and enough supplies to manage her DM. Cane. WW. Shower chair plus GB. Raised toilet with GB. BP Cuff. Pulse Ox. HHC/SNF: Pt states pt has a hx with [facility]. Denies SNF history Plan: TBD. Therapy evals are pending. Pt 6-Click is currently 19 but she is confused. CM/SW to follow pt progression in the hospital as well as therapy to see what the pt qualifies for going forward. Ioana Robbins RN, CM
--- NOTE | 2023-10-09 14:54 | CHAPLAIN ---
Type of Pastoral Visit ___ Initial Visit ___ Follow-up Visit ___ On-call Visit ___ General Patient Visit ___ Spiritual Assessment ___ Family Conference ___ Bereavement ___ Rapid Response ___ Code Blue ___ Other (describe below) Pastoral Care Referral From ___ Patient ___ Family ___ Nurse ___ Physician ___ Correspondence Analyst ___ Gas Compressor Turbine Operator ___ Other (describe below) Sacrament/Intervention ___ Active listening ___ Anointing ___ Presybeterian ___ Bereavement ___ Communion ___ Natacha exploration ___ ___ Life review ___ Prayer ___ Reconciliation ___ Sacrament of Sick ___ Supportive presence ___ Wedding ___ Other (describe below) Pastoral Comments two attempts made to visit this patient; pt is sleeping, per RN pt is also confused when awake; will attempt a visit tomorrow
[2023-10-09 15:30] LABS: Pathologist Review Reviewed
[2023-10-09] MEDS: Potassium Chloride 40 MEQ in Dext 5%-0.45% NS 1,000 ML 125 MEQ IV ×2 (15:49→23:59)
[2023-10-09 16:09] LABS: Bedside Glucose 59 mg/dL (74-106)
[2023-10-09] MEDS: Potassium Chloride Oral Tablet 20 MEQ 40 MEQ PO ×2 (16:14→17:52)
[2023-10-09 16:32] LABS: Anion Gap 8 (5-15); BUN 22 mg/dL (7-18); BUN/Creat Ratio 31.2 RATIO (10-20); Calcium,Total 7.9 mg/dL (8.5-10.1); Chloride 111 mmol/L (98-107); EST Glomerular Filtration Rate 87 mL/min (>60); Est Glom Filt Rate - Afr Amer 105 mL/min (>60); Glucose 143 mg/dL (74-106); Potassium 3.6 mmol/L (3.5-5.1); Sodium Level 137 mmol/L (136-145)
[2023-10-09 18:12] LABS: Bedside Glucose 111 mg/dL (74-106)
[2023-10-09 21:30] LABS: Bedside Glucose 113 mg/dL (74-106)
[2023-10-10] VITALS (21 sets, daily range): BP systolic 91–177; BP diastolic 56–101; PULSE 81–136; RESP 14–36; TEMP 36.1–37; O2SAT 92–100; BMI 22.2
[2023-10-10 04:44] LABS: Absolute Lymphocyte Count 0.79 X10^3/uL (0.83-4.51); Absolute Neutrophil Count 8.3 X10^3/uL (2.0-7.7); Basophil# 0.02 X10^3/uL; Basophil% 0.2 % (0-1); Eosinophil# 0.01 X10^3/uL; Eosinophils% 0.1 % (0-5); Hematocrit 28.7 % (37-47); Hemoglobin 9.7 g/dL (12.0-15.0); Lymphocyte # 0.79 X10^3/ul (0.83-4.51); Lymphocyte % 8.2 % (19-41); Mean Corp Hgb Conc 33.8 g/dL (32-36); Mean Corpuscular Hgb 29.8 pg (27.0-32.0); Mean Platelet Vol. 11.7 fl (6.2-12.0); Monocyte% 4.2 % (0-10); NRBC Flagged by Analyzer 0 % (0-5); Neutrophil # 8.29 X10^3/uL (2.7-7.7); Neutrophil % 86.5 % (47-70); Platelet Count 194 K/mm3 (150-450); RBC Distribution Width CV 15.2 % (11.6-14.6); RBC Distribution Width SD 48.4 fl (35.1-43.9); Red Blood Count 3.26 M/mm3 (4.2-5.4); White Blood Count 9.6 K/mm3 (4.4-11.0)
[2023-10-10 05:34] LABS: Anion Gap 5 (5-15); BUN 18 mg/dL (7-18); BUN/Creat Ratio 26.8 RATIO (10-20); Calcium,Total 8.3 mg/dL (8.5-10.1); Chloride 116 mmol/L (98-107); Creatinine, Serum 0.67 mg/dL (0.55-1.02); EST Glomerular Filtration Rate 92 mL/min (>60); Est Glom Filt Rate - Afr Amer 111 mL/min (>60); Glucose 170 mg/dL (74-106); Potassium 4.9 mmol/L (3.5-5.1); Sodium Level 137 mmol/L (136-145); T4 Free Direct 1.03 ng/dL (0.76-1.46); Thyroid Stim Hormone (TSH) 0.33 uIU/mL (0.358-3.74)
[2023-10-10] MEDS: Levothyroxine 150 MCG Tablet PO (06:50)
[2023-10-10] MEDS: Hydrocortisone Sod Succinate 100 MG/2 ML Vial 50 MG IV ×3 (06:50→21:37)
[2023-10-10] MEDS: Menthol/Lanolin/Calamine/Znox 113 GM Tube 1 APPLIC TOPICAL ×3 (06:50→21:37)
[2023-10-10] MEDS: 0.9% Saline Lock 10 ML Syringe IV (06:50)
[2023-10-10] MEDS: Acetaminophen 500 MG Tablet 1000 MG PO ×3 (06:50→21:39)
[2023-10-10] MEDS: Insulin Lispro 100 UNIT/ML INSULN.PEN SC ×4 (08:11→21:55)
[2023-10-10 08:15] LABS: Bedside Glucose 169 mg/dL (74-106)
[2023-10-10] MEDS: Enoxaparin 40 MG/0.4 ML Syringe SC (08:17)
[2023-10-10] MEDS: Folic Acid 1 MG Tablet PO (08:17)
[2023-10-10 08:20] LABS: Hemoglobin A1c 12.2 % (3.8-5.6)
[2023-10-10 11:59] LABS: Bedside Glucose 195 mg/dL (74-106)
--- NOTE | 2023-10-10 14:13 | PCM.PN.HOSP ---
Reason for Visit Reason for Visit: Diagnoses Unspecified adrenocortical insufficiency (10/08/23) Encephalopathy, unspecified (10/08/23) Diarrhea, unspecified (10/08/23) Objective Data Objective Data Vital Signs: Vital Signs Temp Pulse Resp BP Pulse Ox O2 Del Method 98.2 F 98 21 H 137/75 H 99 Room Air 10/10/23 08:00 10/10/23 10:00 10/10/23 10:00 10/10/23 10:00 10/10/23 10:00 10/10/23 11:50 Oxygen Delivery Method Room Air Weight: 130 lb 4.691 oz Body Mass Index (BMI) 22.2 Intake & Output: Intake and Output for Last 24 Hours 10/08/23 10/09/23 10/10/23 23:59 23:59 23:59 Intake Total 3080 / 3080 6320 / 6320 1020 / 1020 Output Total 500 / 500 0 / 0 Balance 2580 / 2580 6320 / 6320 1020 / 1020 Lab / Micro Data 10/10/23 04:30 10/10/23 04:30 Labs: Laboratory Results - last 24 hr 10/09/23 05:45: Diff Path Review Reviewed 10/09/23 15:45: POC Glucose 59 L 10/09/23 16:05: Sodium 137, Potassium 3.6, Chloride 111 H, Carbon Dioxide 18.0 L, Anion Gap 8, BUN 22 H, Creatinine 0.70, Estim Creat Clear Calc 55.70, Est GFR (MDRD) Af Amer 105, Est GFR (MDRD) Non-Af 87, BUN/Creatinine Ratio 31.2 H, Glucose 143 H, Calcium 7.9 L 10/09/23 17:50: POC Glucose 111 H 10/09/23 21:03: POC Glucose 113 H 10/10/23 04:30: WBC 9.6, RBC 3.26 L, Hgb 9.7 L, Hct 28.7 L, MCV 88.0, MCH 29.8, MCHC 33.8, RDW Std Deviation 48.4 H, RDW Coeff of Mateus 15.2 H, Plt Count 194, MPV 11.7, Immature Gran % (Auto) 0.800, Neut % (Auto) 86.5 H, Lymph % (Auto) 8.2 L, [place] % (Auto) 4.2, Eos % (Auto) 0.1, Baso % (Auto) 0.2, Absolute Neuts (auto) 8.3 H, Absolute Lymphs (auto) 0.79 L, Nucleated RBC % 0, Sodium 137, Potassium 4.9, Chloride 116 H, Carbon Dioxide 16.0 L, Anion Gap 5, BUN 18, Creatinine 0.67, Estim Creat Clear Calc 55.70, Est GFR (MDRD) Af Amer 111, Est GFR (MDRD) Non-Af 92, BUN/Creatinine Ratio 26.8 H, Glucose 170 H, Hemoglobin A1c 12.2 H, Calcium 8.3 L, TSH 0.33 L, Free T4 1.03, Cortisol 31.70 H 10/10/23 07:51: POC Glucose 169 H 10/10/23 11:33: POC Glucose 195 H Micro: Microbiology 10/08/23 12:45 Urine Catheter - Catheter Urine Culture - Preliminary Gram negative shruthi Escherichia coli 10/08/23 12:25 Blood Culture (Wb) - Anticubital Right Blood Culture - Preliminary No growth in 48 hours. 10/08/23 11:50 Blood Culture (Wb) - Anticubital Left Blood Culture - Preliminary No growth in 48 hours. 10/08/23 16:30 Stool Stool Lactoferrin - Final 10/08/23 16:30 Stool Enteric Bacteriology - Final 10/08/23 16:30 Stool Clostridioides difficile (PCR) - Final Physical Exam Narrative General: Alert, Oriented x3, Cooperative. Fatigue and slow. HEENT: Atraumatic, PERRLA, EOMI, Normocephalic Oral: No Gingival or Mucosal Lesions/ Ulcerations Neck: Supple, No JVD, Negative Carotid Bruits Chest wall/Lungs: Air entry diminished in bilateral lung bases. No crepitation/rhonchi Cardiovascular: Regular rate, Regular Rhythm, Normal S1, Normal S2, No M/G/R Abdomen: Bowel Sounds Present, Soft, Non Tender, Non-Distended : No dysuria. No renal angle tenderness. No suprapubic tenderness. Extremities: No edema, Capillary Refill Less than 3 Seconds Skin: No rashes, No breakdown Musculoskeletal: No Tenderness to Palpation of Joints or Extremities. Weakness of lower extremities, needs 2 people to assist to stand up Neurological: Cranial nerves II-XII grossly intact, DTR 2+/4. No acute focal neurological deficit. Psych/Mental Status: Flat affect, dementia Assessment & Plan Assessment/Plan (1) Encephalopathy: (2) Adrenal insufficiency: (3) Diarrhea: PLAN: Plan 73-year-old female came to ED for generalized weakness confusion over last 1 week. As per the caregiver, her states her blood sugar have been difficult to control. Patient insulin was changed last week as per . Blood pressure was low 66/41 with tachycardia in ED and blood sugar in 400s. DKA with euglycemia/hypoglycemia with history of type 2 diabetes mellitus: Bicarb decreased from 18-9.0, anion gap 15-17. Hyponatremia possible due to hypoglycemia/DKA patient is dehydrated.. Lactic acid normal. Serum magnesium phosphorus and calcium are normal. Serum acetone negative.Glucose in BMP 202. Serum osmolality 295. ABG shows metabolic acidosis 7.38/22.6/86 suggestive of well compensated increased anion gap metabolic acidosis. Patient diagnosed with DKA with euglycemia/hypoglycemia. Usually seen with patient on SGLT2 inhibitor but patient is not as per home medications. DKA order set ordered but even before starting insulin drip glucose dropped to 26 given 1 D50. Discussed with nursing staff manage insulin drip discontinued. Accu-Cheks every 1 hour with hypoglycemia protocol. 10/09: DKA resolved. Anion gap x 2 closed.Insulin drip was never started as patient ran into hypoglycemia yesterday.A1c 12.2%. Random glucose 195, fasting 170. Accu-Chek before meals and at bedtime insulin coverage Humalog sliding scale. Scheduled insulin discontinued. Transferred to PCU Acute encephalopathy Suspected metabolic due to dehydration, diarrhea possible hypoglycemia and possibly component of adrenal insufficiency Avoid potentiating medications Treat the underlying processes 10/09: Patient looks fatigued slow but awake alert oriented x 3. I think she has forgetfulness/amnesia and dementia. Acute encephalopathy resolved Adrenal insufficiency Suspected as patient takes prednisone chronically Patient did have hypotension when she initially presented but that is since resolved. 50 mg of hydrocortisone 3 times daily as she seems to be improving. 10/08: Continue home dose of hydrocortisone and she needs distress tolerance being in DKA. Once she is out of ICU, will need to change to prednisone and taper down gradually to her daily dose of 5 mg daily. Cortisol a.m. tomorrow Hypotension possible due to DKA, and adrenal insufficiency Due to dehydration and possibly adrenal insufficiency BP 110/68 pulse rate 124. Sinus tachycardia Hold losartan. Diarrhea Unclear etiology Stool for C. difficile enteric bacteriology panel are negative. Lactoferrin positive.Blood cultures x 2 and urine culture are pending. Chronic conditions Rheumatoid arthritis: Hold off on methotrexate for now. Prednisone to be changed over to hydrocortisone for now. Hypothyroidism: Continue with levothyroxine 150 mcg daily 10/08: TSH and free T4 ordered for tomorrow AM. VTE prophylaxis with enoxaparin CODE STATUS: Addressed with the patient. Patient wished to be full code. Total time of the visit including total time spent in counseling or coordination of care, (more than 50% of the total time, spent in obtaining medical information from nurses and other ancillary care providers,explaining to the patient about labs, imaging, diagnosis and management of active complex medical conditions), coordination of care with nursing staff, respiratory therapist, review of labs and imaging is 40 minutes.
[2023-10-10 14:27] LABS: Bedside Glucose 56 mg/dL (74-106)
[2023-10-10 14:27] LABS: Bedside Glucose 48 mg/dL (74-106)
--- NOTE | 2023-10-10 15:27 | CHAPLAIN ---
Type of Pastoral Visit _x__ Initial Visit ___ Follow-up Visit ___ On-call Visit ___ General Patient Visit ___ Spiritual Assessment ___ Family Conference ___ Bereavement ___ Rapid Response ___ Code Blue ___ Other (describe below) Pastoral Care Referral From ___ Patient ___ Family ___ Nurse ___ Physician ___ Laborer Powerhouse ___ Security Agent _x__ Other (describe below) Sacrament/Intervention ___ Active listening ___ Anointing ___ Congregational ___ Bereavement ___ Communion ___ Natacha exploration ___ ___ Life review _x__ Prayer ___ Reconciliation ___ Sacrament of Sick _x__ Supportive presence ___ Wedding ___ Other (describe below) Pastoral Comments patient is awake today, sitting up in chair, and attempting to eat some lunch; pt responds, although slowly to questions and offer of support; pt states that she is fine but does not engage in conversation and could not identify where she was currently; pt does welcome a prayer
--- NOTE | 2023-10-10 16:43 | CASEMGMT ---
JACKSON spoke with patient's Mir regarding SDOH concerns with living situation. Mir stated that he has to travel to [place] every 3 weeks for his cancer treatment. His gone for most of the day and he has no one to be with patient. SW asked Mir if they are financially able to pay for someone to sit with patient. Mir said it is a possibility. SW provided Mir with a list of private duty agencies and information on [employer] program. Pascale BOWERS
[2023-10-10 17:04] LABS: Bedside Glucose 263 mg/dL (74-106)
[2023-10-10 20:21] LABS: Bedside Glucose 269 mg/dL (74-106)
--- NOTE | 2023-10-10 20:50 | RAD_ITS ---
STUDY: X-RAY CHEST REASON FOR EXAM: Female, 73 years old. worsening hypoxia TECHNIQUE: Single AP portable view of the chest. COMPARISON: 10/08/2023 FINDINGS: Alveolar opacities throughout both lungs consistent with bilateral pneumonia, pulmonary edema, or ARDS. There is no demonstrated pleural abnormality. Normal size heart. Normal mediastinum and batool. Normal visualized pulmonary arteries. Normal visualized aortic arch and descending thoracic aorta. Normal visualized thoracic spine. Status post right shoulder reverse arthroplasty. There is no demonstrated abnormality of the visualized soft tissue structures of the upper abdomen. RAD/Chest 1 View (Portable) IMPRESSION: Bilateral pneumonia, pulmonary edema, or ARDS. Electronically Signed: Jeffrey Byers MD at 22:34 EDT ,
[2023-10-10] MEDS: Furosemide 40 MG/4 ML Vial IV (21:36)
[2023-10-10 22:16] LABS: Bedside Glucose 344 mg/dL (74-106)
--- NOTE | 2023-10-10 23:09 | NUR.TO.PHY ---
Pt pulled off her bipap at 23:00 and was placed on 4L NC by this RN. Emerson SANDERS
[2023-10-11] VITALS (9 sets, daily range): BP systolic 102–145; BP diastolic 60–96; PULSE 82–119; RESP 14–24; TEMP 36.5–37.1; O2SAT 93–99; BMI 21.7
[2023-10-11] MEDS: Menthol/Lanolin/Calamine/Znox 113 GM Tube 1 APPLIC TOPICAL ×3 (05:08→21:23)
[2023-10-11] MEDS: Acetaminophen 500 MG Tablet 1000 MG PO ×3 (05:09→21:23)
[2023-10-11] MEDS: Levothyroxine 125 MCG Tablet PO (05:10)
[2023-10-11 06:44] LABS: Bedside Glucose 123 mg/dL (74-106)
[2023-10-11 07:15] LABS: Absolute Lymphocyte Count 2.45 X10^3/uL (0.83-4.51); Absolute Neutrophil Count 8.5 X10^3/uL (2.0-7.7); Basophil# 0.03 X10^3/uL; Basophil% 0.3 % (0-1); Eosinophil# 0.05 X10^3/uL; Eosinophils% 0.4 % (0-5); Hematocrit 32.8 % (37-47); Lymphocyte # 2.45 X10^3/ul (0.83-4.51); Lymphocyte % 20.8 % (19-41); Mean Corp Hgb Conc 33.5 g/dL (32-36); Mean Corpuscular Hgb 29.7 pg (27.0-32.0); Mean Corpuscular Volume 88.6 fL (81-99); Mean Platelet Vol. 11.8 fl (6.2-12.0); Monocyte# 0.62 X10^3/uL; Monocyte% 5.3 % (0-10); NRBC Flagged by Analyzer 0 % (0-5); Neutrophil # 8.45 X10^3/uL (2.7-7.7); Neutrophil % 71.5 % (47-70); Platelet Count 219 K/mm3 (150-450); RBC Distribution Width CV 15.6 % (11.6-14.6); RBC Distribution Width SD 50.7 fl (35.1-43.9); White Blood Count 11.8 K/mm3 (4.4-11.0)
[2023-10-11 07:39] LABS: Anion Gap 7 (5-15); BUN 20 mg/dL (7-18); BUN/Creat Ratio 34.5 RATIO (10-20); Calcium,Total 8.8 mg/dL (8.5-10.1); Chloride 111 mmol/L (98-107); Creatinine, Serum 0.58 mg/dL (0.55-1.02); EST Glomerular Filtration Rate 109 mL/min (>60); Est Glom Filt Rate - Afr Amer 132 mL/min (>60); Glucose 137 mg/dL (74-106); Potassium 3.5 mmol/L (3.5-5.1); Sodium Level 138 mmol/L (136-145)
[2023-10-11] MEDS: Enoxaparin 40 MG/0.4 ML Syringe SC (10:30)
[2023-10-11] MEDS: Folic Acid 1 MG Tablet PO (10:30)
[2023-10-11] MEDS: Hydrocortisone Sod Succinate 100 MG/2 ML Vial 50 MG IV (10:31)
[2023-10-11 11:28] LABS: Bedside Glucose 257 mg/dL (74-106)
[2023-10-11] MEDS: Insulin Lispro 100 UNIT/ML INSULN.PEN SC ×3 (11:38→21:26)
--- NOTE | 2023-10-11 12:25 | CASEMGMT ---
RN CM into pt room, pt was working with OT at this time. Pt states her has not been in today. TC to pt , Mir, left message with request to return call to discuss dc plan.
--- NOTE | 2023-10-11 14:33 | PN.HOSP_ITS ---
Reason for Visit Reason for Visit: Diagnoses Unspecified adrenocortical insufficiency (10/08/23) Encephalopathy, unspecified (10/08/23) Diarrhea, unspecified (10/08/23) Objective Data Objective Data Vital Signs: Vital Signs Temp Pulse Resp BP Pulse Ox O2 Del Method O2 Flow Rate 97.7 F L 87 18 118/67 99 Nasal Cannula 2 10/11/23 10:25 10/11/23 10:25 10/11/23 10:25 10/11/23 10:25 10/11/23 12:20 10/11/23 10:25 10/11/23 12:20 FiO2 35 10/10/23 22:30 Oxygen Flow Rate (L/min) 2 Oxygen Delivery Method Nasal Cannula Weight: 127 lb 6.835 oz Body Mass Index (BMI) 21.7 Intake & Output: Intake and Output for Last 24 Hours 10/09/23 10/10/23 10/11/23 23:59 23:59 23:59 Intake Total 6320 / 6320 1020 / 1020 360 / 360 Output Total 0 / 0 300 / 300 Balance 6320 / 6320 1020 / 1020 60 / 60 Lab / Micro Data 10/11/23 06:35 10/11/23 06:35 Labs: Laboratory Results - last 24 hr 10/10/23 16:39: POC Glucose 263 H 10/10/23 20:02: POC Glucose 269 H 10/10/23 21:48: POC Glucose 344 H 10/11/23 06:22: POC Glucose 123 H 10/11/23 06:35: WBC 11.8 H, RBC 3.70 L, Hgb 11.0 L, Hct 32.8 L, MCV 88.6, MCH 29.7, MCHC 33.5, RDW Std Deviation 50.7 H, RDW Coeff of Mateus 15.6 H, Plt Count 219, MPV 11.8, Immature Gran % (Auto) 1.700 H, Neut % (Auto) 71.5 H, Lymph % (Auto) 20.8, [place] % (Auto) 5.3, Eos % (Auto) 0.4, Baso % (Auto) 0.3, Absolute Neuts (auto) 8.5 H, Absolute Lymphs (auto) 2.45, Nucleated RBC % 0, Sodium 138, Potassium 3.5, Chloride 111 H, Carbon Dioxide 20.0 L, Anion Gap 7, BUN 20 H, Creatinine 0.58, Estim Creat Clear Calc 55.70, Est GFR (MDRD) Af Amer 132, Est GFR (MDRD) Non-Af 109, BUN/Creatinine Ratio 34.5 H, Glucose 137 H, Calcium 8.8 10/11/23 11:08: POC Glucose 257 H Micro: Microbiology 10/08/23 12:45 Urine Catheter - Catheter Urine Culture - Final Klebsiella pneumoniae sp pneum Escherichia coli 10/08/23 12:25 Blood Culture (Wb) - Anticubital Right Blood Culture - Preliminary No growth in 48 hours. 10/08/23 11:50 Blood Culture (Wb) - Anticubital Left Blood Culture - Preliminary No growth in 48 hours. 10/08/23 16:30 Stool Stool Lactoferrin - Final 10/08/23 16:30 Stool Enteric Bacteriology - Final 10/08/23 16:30 Stool Clostridioides difficile (PCR) - Final Radiography Diagnostic Testing: Radiology Impression Chest X-Ray 10/10/23 20:50 IMPRESSION: Bilateral pneumonia, pulmonary edema, or ARDS. Electronically Signed: Jeffrey Byers MD at 22:34 EDT , Physical Exam Narrative Seen and examined. Patient on baseline. fatigue. Intermittent confusion. Needs significant monitoring for walking General: Groggy just woke up from sleep. Oriented x3, Cooperative. Fatigue and slow. HEENT: Atraumatic, PERRLA, EOMI, Normocephalic Oral: No Gingival or Mucosal Lesions/ Ulcerations Neck: Supple, No JVD, Negative Carotid Bruits Chest wall/Lungs: Air entry diminished in bilateral lung bases. No crepitation/rhonchi Cardiovascular: Regular rate, Regular Rhythm, Normal S1, Normal S2, No M/G/R Abdomen: Bowel Sounds Present, Soft, Non Tender, Non-Distended : No dysuria. No renal angle tenderness. No suprapubic tenderness. Extremities: No edema, Capillary Refill Less than 3 Seconds Skin: No rashes, No breakdown Musculoskeletal: No Tenderness to Palpation of Joints or Extremities. Weakness of lower extremities, needs 2 people to assist to stand up Neurological: Cranial nerves II-XII grossly intact, DTR 2+/4. No acute focal neurological deficit. Psych/Mental Status: Flat affect, dementia, hard time to recall name of pres ident. Does not remember the month of the year. Assessment & Plan Assessment/Plan (1) Encephalopathy: (2) Adrenal insufficiency: (3) Diarrhea: PLAN: Plan 73-year-old female came to ED for generalized weakness confusion over last 1 week. As per the caregiver, her states her blood sugar have been difficult to control. Patient insulin was changed last week as per . Blood pressure was low 66/41 with tachycardia in ED and blood sugar in 400s. DKA with euglycemia/hypoglycemia with history of type 2 diabetes mellitus: Bicarb decreased from 18-9.0, anion gap 15-17. Hyponatremia possible due to hypoglycemia/DKA patient is dehydrated.. Lactic acid normal. Serum magnesium phosphorus and calcium are normal. Serum acetone negative.Glucose in BMP 202. Serum osmolality 295. ABG shows metabolic acidosis 7.38/22.6/86 suggestive of well compensated increased anion gap metabolic acidosis. Patient diagnosed with DKA with euglycemia/hypoglycemia. Usually seen with patient on SGLT2 inhibitor but patient is not as per home medications. DKA order set ordered but even before starting insulin drip glucose dropped to 26 given 1 D50. Discussed with nursing staff manage insulin drip discontinued. Accu-Cheks every 1 hour with hypoglycemia protocol. 10/09: DKA resolved. Anion gap x 2 closed.Insulin drip was never started as patient ran into hypoglycemia yesterday.A1c 12.2%. Random glucose 195, fasting 170. Accu-Chek before meals and at bedtime insulin coverage Humalog sliding scale. Scheduled insulin discontinued. Transferred to PCU 10/10: No acute change. Patient needs more physical therapy with debility, short gait with swelling. Possible rehab Acute encephalopathy * Suspected metabolic due to dehydration, diarrhea possible hypoglycemia and possibly component of adrenal insufficiency * Avoid potentiating medications * Treat the underlying processes 10/09: Patient looks fatigued slow but awake alert oriented x 3. I think she has forgetfulness/amnesia and dementia. Acute encephalopathy resolved Adrenal insufficiency * Suspected as patient takes prednisone chronically * Patient did have hypotension when she initially presented but that is since resolved. * 50 mg of hydrocortisone 3 times daily as she seems to be improving. * 10/08: Continue home dose of hydrocortisone and she needs distress tolerance being in DKA. Once she is out of ICU, will need to change to prednisone and taper down gradually to her daily dose of 5 mg daily. * 10/10:Cortisol level is high. IV hydrocortisone changed to oral 20 mg and and 10 mg p.m. dose Hypotension possible due to DKA, and adrenal insufficiency * Due to dehydration and possibly adrenal insufficiency * BP 110/68 pulse rate 124. Sinus tachycardia * Hold losartan. Diarrhea * Unclear etiology * Stool for C. difficile enteric bacteriology panel are negative. Lactoferrin positive.Blood cultures x 2 and urine culture are pending. Chronic conditions * Rheumatoid arthritis: Hold off on methotrexate for now. Prednisone to be changed over to hydrocortisone for now. * Hypothyroidism: Continue with levothyroxine 150 mcg daily 10/08: TSH and free T4 ordered for tomorrow AM. VTE prophylaxis with enoxaparin CODE STATUS: Addressed with the patient. Patient wished to be full code. Total time of the visit including total time spent in counseling or coordination of care, (more than 50% of the total time, spent in obtaining medical information from nurses and other ancillary care providers,explaining to the patient about labs, imaging, diagnosis and management of active complex medical conditions), coordination of care with nursing staff, respiratory therapist, review of labs and imaging is 40 minutes. Charges/Coding Visit Charges Inpatient E&M: 57551 Subs Hosp L2
[2023-10-11] MEDS: Potassium Chloride Oral Tablet 20 MEQ 40 MEQ PO (15:54)
[2023-10-11] MEDS: Hydrocortisone 10 MG Tablet PO (16:16)
[2023-10-11 16:35] LABS: Bedside Glucose 392 mg/dL (74-106)
[2023-10-11 22:23] LABS: Bedside Glucose 266 mg/dL (74-106)
[2023-10-12] VITALS (9 sets, daily range): BP systolic 95–130; BP diastolic 58–79; PULSE 76–95; RESP 18; TEMP 36.1–36.7; O2SAT 93–99; BMI 22.1
[2023-10-12] MEDS: Menthol/Lanolin/Calamine/Znox 113 GM Tube 1 APPLIC TOPICAL ×3 (05:13→21:06)
[2023-10-12] MEDS: Acetaminophen 500 MG Tablet 1000 MG PO ×3 (05:13→21:10)
[2023-10-12] MEDS: Levothyroxine 125 MCG Tablet PO (05:16)
[2023-10-12] MEDS: Insulin Lispro 100 UNIT/ML INSULN.PEN SC ×6 (06:44→21:15)
[2023-10-12 07:02] LABS: Bedside Glucose 200 mg/dL (74-106)
[2023-10-12] MEDS: Folic Acid 1 MG Tablet PO (09:05)
[2023-10-12] MEDS: Potassium Chloride Oral Tablet 20 MEQ 40 MEQ PO (09:06)
[2023-10-12] MEDS: Enoxaparin 40 MG/0.4 ML Syringe SC (09:06)
[2023-10-12] MEDS: Hydrocortisone 10 MG Tablet 20 MG PO (09:06)
--- NOTE | 2023-10-12 09:08 | PN.HOSP_ITS ---
Reason for Visit Reason for Visit: Diagnoses Unspecified adrenocortical insufficiency (10/08/23) Encephalopathy, unspecified (10/08/23) Diarrhea, unspecified (10/08/23) Objective Data Objective Data Vital Signs: Vital Signs Temp Pulse Resp BP Pulse Ox O2 Del Method O2 Flow Rate 97.6 F L 95 18 128/79 H 96 Room Air 2 10/12/23 09:00 10/12/23 09:00 10/12/23 09:00 10/12/23 09:00 10/12/23 09:00 10/12/23 09:00 10/11/23 16:25 FiO2 35 10/11/23 22:30 Oxygen Flow Rate (L/min) 2 Oxygen Delivery Method Room Air Weight: 129 lb 10.109 oz Body Mass Index (BMI) 22.1 Intake & Output: Intake and Output for Last 24 Hours 10/10/23 10/11/23 10/12/23 23:59 23:59 23:59 Intake Total 1020 / 1020 840 / 840 Output Total 600 / 600 Balance 1020 / 1020 240 / 240 Lab / Micro Data 10/11/23 06:35 10/11/23 06:35 Labs: Laboratory Results - last 24 hr 10/11/23 11:08: POC Glucose 257 H 10/11/23 16:11: POC Glucose 392 H 10/11/23 21:25: POC Glucose 266 H 10/12/23 06:43: POC Glucose 200 H Micro: Microbiology 10/08/23 12:45 Urine Catheter - Catheter Urine Culture - Final Klebsiella pneumoniae sp pneum Escherichia coli 10/08/23 12:25 Blood Culture (Wb) - Anticubital Right Blood Culture - Preliminary No growth in 48 hours. 10/08/23 11:50 Blood Culture (Wb) - Anticubital Left Blood Culture - P reliminary No growth in 48 hours. 10/08/23 16:30 Stool Stool Lactoferrin - Final 10/08/23 16:30 Stool Enteric Bacteriology - Final 10/08/23 16:30 Stool Clostridioides difficile (PCR) - Final Physical Exam Narrative Seen and examined. Patient on baseline. fatigue. Confusion is much improved. Unsteady on gait General: ,y, Oriented x3, Cooperative. Fatigue and slow. HEENT: Atraumatic, PERRLA, EOMI, Normocephalic Oral: No Gingival or Mucosal Lesions/ Ulcerations Neck: Supple, No JVD, Negative Carotid Bruits Chest wall/Lungs: Air entry diminished in bilateral lung bases. No crepitation/rhonchi Cardiovascular: Regular rate, Regular Rhythm, Normal S1, Normal S2, No M/G/R Abdomen: Bowel Sounds Present, Soft, Non Tender, Non-Distended : No dysuria. No renal angle tenderness. No suprapubic tenderness. Extremities: No edema, Capillary Refill Less than 3 Seconds Skin: No rashes, No breakdown Musculoskeletal: Gait instability. No Tenderness to Palpation of Joints or Ext remities. Weakness of lower extremities, needs 2 people to assist to stand up Neurological: Cranial nerves II-XII grossly intact, DTR 2+/4. No acute focal neurological deficit. Psych/Mental Status: Flat affect, dementia, hard time to recall name of president. Does not remember the month of the year. Assessment & Plan Assessment/Plan (1) Encephalopathy: (2) Adrenal insufficiency: (3) Diarrhea: PLAN: Plan 73-year-old female came to ED for generalized weakness confusion over last 1 week. As per the caregiver, her states her blood sugar have been difficult to control. Patient insulin was changed last week as per . Blood pressure was low 66/41 with tachycardia in ED and blood sugar in 400s. DKA with euglycemia/hypoglycemia with history of type 2 diabetes mellitus: Bic arb decreased from 18-9.0, anion gap 15-17. Hyponatremia possible due to hypoglycemia/DKA patient is dehydrated.. Lactic acid normal. Serum magnesium phosphorus and calcium are normal. Serum acetone negative.Glucose in BMP 202. Serum osmolality 295. ABG shows metabolic acidosis 7.38/22.6/86 suggestive of well compensated increased anion gap metabolic acidosis. Patient diagnosed with DKA with euglycemia/hypoglycemia. Usually seen with patient on SGLT2 inhibitor but patient is not as per home medications. DKA order set ordered but even before starting insulin drip glucose dropped to 26 given 1 D50. Discussed with nursing staff manage insulin drip discontinued. Accu-Cheks every 1 hour with hypoglycemia protocol. 10/09: DKA resolved. Anion gap x 2 closed.Insulin drip was never started as patient ran into hypoglycemia yesterday.A1c 12.2%. Random glucose 195, fasting 170. Accu-Chek before meals and at bedtime insulin coverage Humalog sliding scale. Scheduled insulin discontinued. Transferred to PCU 10/10: No acute change. Patient needs more physical therapy with debility, short gait with swelling. Possible rehab 10/11: Hypoglycemia glucose went up yesterday. 257, 392, 266 in the morning 200: Schedule short-acting Humalog insulin ordered. Acute encephalopathy * Suspected metabolic due to dehydration, diarrhea possible hypoglycemia and possibly component of adrenal insufficiency * Avoid potentiating medications * Treat the underlying processes 10/09: Patient looks fatigued slow but awake alert oriented x 3. I think she has forgetfulness/amnesia and dementia. Acute encephalopathy resolved Adrenal insufficiency * Suspected as patient takes prednisone chronically * Patient did have hypotension when she initially presented but that is since r esolved. * 50 mg of hydrocortisone 3 times daily as she seems to be improving. * 10/08: Continue home dose of hydrocortisone and she needs distress tolerance being in DKA. Once she is out of ICU, will need to change to prednisone and taper down gradually to her daily dose of 5 mg daily. * 10/10:Cortisol level is high. IV hydrocortisone changed to oral 20 mg and and 10 mg p.m. dose Hypotension possible due to DKA, and adrenal insufficiency * Due to dehydration and possibly adrenal insufficiency * BP 110/68 pulse rate 124. Sinus tachycardia * Hold losartan. Diarrhea * Unclear etiology * Stool for C. difficile enteric bacteriology panel are negative. Lactoferrin positive.Blood cultures x 2 and urine culture are pending. Chronic conditions * Rheumatoid arthritis: Hold off on methotrexate for now. Prednisone to be changed over to hydrocortisone for now. * Hypothyroidism: Continue with levothyroxine 150 mcg daily 10/08: TSH and free T4 ordered for tomorrow AM. VTE prophylaxis with enoxaparin CODE STATUS: Addressed with the patient. Patient wished to be full code. Total time of the visit including total time spent in counseling or coordination of care, (more than 50% of the total time, spent in obtaining medical information from nurses and other ancillary care providers,explaining to the patient about labs, imaging, diagnosis and management of active complex medical conditions), coordination of care with nursing staff, respiratory therapist, review of labs and imaging is 40 minutes. Charges/Coding Visit Charges Inpatient E&M: 03100 Subs Hosp L2
[2023-10-12 09:51] LABS: Anion Gap 7 (5-15); BUN 22 mg/dL (7-18); BUN/Creat Ratio 28.4 RATIO (10-20); Calcium,Total 8.7 mg/dL (8.5-10.1); Chloride 107 mmol/L (98-107); Creatinine, Serum 0.78 mg/dL (0.55-1.02); EST Glomerular Filtration Rate 78 mL/min (>60); Est Glom Filt Rate - Afr Amer 94 mL/min (>60); Glucose 182 mg/dL (74-106); Potassium 3.6 mmol/L (3.5-5.1); Sodium Level 135 mmol/L (136-145)
[2023-10-12 11:56] LABS: Bedside Glucose 308 mg/dL (74-106)
--- NOTE | 2023-10-12 13:23 | EKG12_ITS ---
Test Reason : HIGH HR Blood Pressure : / mmHG Vent. Rate : 110 BPM Atrial Rate : 110 BPM P-R Int : 140 ms QRS Dur : 062 ms QT Int : 352 ms P-R-T Axes : 053 008 094 degrees QTc Int : 476 ms Sinus tachycardia with Premature atrial complexes Abnormal QRS-T angle, consider primary T wave abnormality Abnormal ECG When compared with ECG of 08-OCT-2023 12:07, MANUAL COMPARISON REQUIRED, DATA IS UNCONFIRMED Confirmed by JOSÉ ANTONIO CROSS, SAMEER ([id number]), city editor NATI HUGO ([id number]) on 10/13/2023 2:00:57 PM Referred By: Confirmed By:SAMEER CHOU MD
[2023-10-12] MEDS: Metoprolol Tartrate 25 MG Tablet PO ×2 (13:59→21:10)
[2023-10-12 17:09] LABS: Bedside Glucose 288 mg/dL (74-106)
--- NOTE | 2023-10-12 22:15 | CPS ---
Pt refused to wear BiPAP for tonight.
[2023-10-12 22:35] LABS: Bedside Glucose 150 mg/dL (74-106)
[2023-10-13 03:13] VITALS: BP 111/51; PULSE 71; RESP 18; TEMP 36.4; O2SAT 94
[2023-10-13] MEDS: Menthol/Lanolin/Calamine/Znox 113 GM Tube 1 APPLIC TOPICAL ×2 (05:25→11:15)
[2023-10-13] MEDS: Acetaminophen 500 MG Tablet 1000 MG PO (05:25)
[2023-10-13] MEDS: Levothyroxine 125 MCG Tablet PO (05:25)
[2023-10-13 06:00] VITALS: BMI 22.5
[2023-10-13 07:01] VITALS: O2SAT 94
[2023-10-13 07:37] LABS: Anion Gap 10 (5-15); BUN 18 mg/dL (7-18); BUN/Creat Ratio 29.3 RATIO (10-20); Calcium,Total 8.7 mg/dL (8.5-10.1); Chloride 102 mmol/L (98-107); Creatinine, Serum 0.62 mg/dL (0.55-1.02); EST Glomerular Filtration Rate 102 mL/min (>60); Est Glom Filt Rate - Afr Amer 123 mL/min (>60); Glucose 446 mg/dL (74-106); Potassium 4.9 mmol/L (3.5-5.1); Sodium Level 131 mmol/L (136-145)
[2023-10-13] MEDS: Insulin Lispro 100 UNIT/ML INSULN.PEN SC ×3 (07:37→11:02)
[2023-10-13 09:15] VITALS: BP 117/83; PULSE 96; RESP 12; TEMP 36.6; O2SAT 99
[2023-10-13] MEDS: Potassium Chloride Oral Tablet 20 MEQ 40 MEQ PO (09:18)
[2023-10-13] MEDS: Insulin Glargine-YFGN 100 UNIT/ML Pen 15 UNIT SC (09:19)
[2023-10-13] MEDS: Folic Acid 1 MG Tablet PO (09:19)
[2023-10-13] MEDS: Enoxaparin 40 MG/0.4 ML Syringe SC (09:20)
[2023-10-13 09:22] VITALS: PULSE 96
[2023-10-13] MEDS: predniSONE 10 MG Tablet PO (09:22)
[2023-10-13] MEDS: Metoprolol Tartrate 25 MG Tablet PO (09:22)
[2023-10-13 09:55] LABS: Bedside Glucose 448 mg/dL (74-106)
[2023-10-13] MEDS: Insulin Lispro 100 UNIT/ML INSULN.PEN 8 UNIT SC (11:04)
--- NOTE | 2023-10-13 11:26 | CASEMGMT ---
Discharge Planning A list of HH providers including quality and resource use data and consistent with the patient's preferred geographic region, medical needs, and insurance network was created in [facility].? This list was provided to the RN UMANG. Magy Kimbrough, Discharge Planning Asst.
[2023-10-13 11:29] LABS: Bedside Glucose 265 mg/dL (74-106)
--- NOTE | 2023-10-13 12:13 | CASEMGMT ---
Addendum entered by Elisha Riddle 10/13/23 13:19: MARILYN HECK received call back from [facility] and they are able to accept patient with planned start of care for Friday. RN CM updated discharge plan and patient. Patient had no further questions or concerns. Original Note: RN CM updated that patient will be discharging today. RN CM in to discuss needs at discharge. Patient and would like [facility]. List provided. Patient and prefer [facility] as they have had them in the past. Patient and deny futher needs or concerns. MARILYN CM called and made referral to [facility], awaiting acceptance.
--- NOTE | 2023-10-13 12:53 | DCINST_ITS ---
Discharge Instructions Diet Discharge Diet: 1800 Calorie Control Diet Activity Discharge Activity: Return to Normal Activity Weight Bearing Status: Weight bearing as tolerated Dressing / Incision Call your doctor if you observe: Fever of 101 or Higher, Coldness, Increased Pain, Numbness or Tingling, Change in Color, Inability to urinate, Inability to have a bowel movement, Using more than 1 pad per hour, Shortness of breath, Dizziness, Fainting spells, Swelling in the ankles, Chest pain, Prolonged hiccupping, Increased palpitations (irregular heartbeat) and Calf discomfort Follow Up Care When: IN 2 WEEKS Test Results: Test results from this visit will be discussed in further detail at your follow- up appointment, if applicable. Discharge Plan Admission Admit Date/Time: 10/08/23 16:48 Primary Reason for Your Visit: DKA, confusion and encephalopathy Attending Provider: Kenneth Chin Primary Care Provider: Eric Bravo Consulting Providers: Eduardo Hicks Discharge Orders/Prescriptions Prescriptions: New prednisone 10 mg Tablet 10 mg PO DAILYCM 30 Days Qty: 30 0RF Rx Instructions: Prednisone 10 mg daily for 2 days till 10/15/2023 then 5 mg daily to continue metoprolol tartrate 25 mg Tablet 25 mg PO BID 30 Days Qty: 60 0RF insulin lispro [Humalog KwikPen Insulin] 100 unit/mL Insulin Pen See Protocol subcut ACHS Qty: 0 0RF Protocol: 3. Sliding Scale Insulin Med Dosing Condition: 150-189 mg/dl = 1 unit Condition: 190-229 mg/dl = 2 units Condition: 230-269 mg/dl = 3 units Condition: 270-309 mg/dl = 4 units Condition: 310-349 mg/dl = 5 units Condition: 350-399 mg/dl = 6 units Condition: 400-449 mg/dl = 7 units Condition: Greater than 449 call physician Protocol Text: - Use for Total Daily Dose of Insulin 37-55 units - Obsese, infected, or steroid patients MEDIUM DOSING ALGORITHIM Continued methotrexate sodium 2.5 mg tablet 12.5 mg PO QWEEK Patient Comments: TAKE 5 (FIVE) tablets BY MOUTH per week losartan 25 mg tablet 25 mg PO DAILY levothyroxine 150 MCG tablet 150 mcg PO DAILY magnesium oxide 400 mg magnesium tablet 400 mg PO DAILY sertraline 25 mg tablet 25 mg PO DAILY Patient Comments: HASNT GOTTEN FILLED SINCE MARCH acetaminophen 500 mg Tablet 1,000 mg PO Q8 Qty: 0 0RF folic acid 1 mg tablet 1 mg PO DAILY Changed insulin lispro [Humalog KwikPen Insulin] 100 unit/mL insulin pen 10 unit subcut TID Qty: 15 0RF Rx Instructions: Hold if glucose less than 130 mg/dl insulin glargine [Lantus Solostar U-100 Insulin] 100 unit/mL (3 mL) insulin pen 16 unit subcut DAILY Qty: 15 0RF Discontinued prednisone 5 mg tablet 5 mg PO DAILY Patient Comments: TAKE 1 TABLET BY MOUTH EVERY MORNING Levemir FlexPen 100 unit/mL (3 mL) insulin pen 38 unit subcut QHS Referrals / Follow Up: Eric Bravo DO [Primary Care Provider] - Within 1 Week (For labile diabetes mellitus with fluctuating blood sugar.) Ministerio Arias MD [Med Staff - Courtesy Staff] - Within 1 Month (For labile/brittle diabetes mellitus. Also on prednisone 5 mg daily.) Disposition Disposition (needs filled in before D/C Order can be placed): Home Health Service
--- NOTE | 2023-10-13 13:00 | WOUNDNOTE ---
wound photo: coccyx/bilateral buttocks
[2023-10-13 13:23] LABS: Bedside Glucose 186 mg/dL (74-106)
--- NOTE | 2023-10-13 13:33 | DS.PCM_ITS ---
Providers Date of Admission: 10/08/23 Date of Discharge: 10/13/23 Primary Care Physician: Dr. 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 As per the caregiver, her states her blood sugar have been difficult to control. Patient insulin was changed last week as per . Blood pressure was low 66/41 with tachycardia in ED and blood sugar in 400s. DKA with euglycemia/hypoglycemia with history of type 2 diabetes mellitus: Bicarb decreased from 18-9.0, anion gap 15-17. Hyponatremia possible due to hypoglycemia/DKA patient is dehydrated.. Lactic acid normal. Serum magnesium phosphorus and calcium are normal. Serum acetone negative.Glucose in BMP 202. Serum osmolality 295. ABG shows metabolic acidosis 7.38/22.6/86 suggestive of well compensated increased anion gap metabolic acidosis. Patient diagnosed with DKA with euglycemia/hypoglycemia. Usually seen with patient on SGLT2 inhibitor but patient is not as per home medications. DKA order set ordered but even before starting insulin drip glucose dropped to 26 given 1 D50. Discussed with nursing staff manage insulin drip discontinued. Accu-Cheks every 1 hour with hypoglycemia protocol. 10/09: DKA resolved. Anion gap x 2 closed.Insulin drip was never started as patient ran into hypoglycemia yesterday.A1c 12.2%. Random glucose 195, fasting 170. Accu-Chek before meals and at bedtime insulin coverage Humalog sliding sc asha. Scheduled insulin discontinued. Transferred to PCU 10/10: No acute change. Patient needs more physical therapy with debility, short gait with swelling. Possible rehab 10/11: Hypoglycemia glucose went up yesterday. 257, 392, 266 in the morning 200: Schedule short-acting Humalog insulin ordered. 10/12: Blood sugars up 448 in a.m. mainly due to hydrocortisone oral. Hydrocortisone discontinued started on prednisone tapering dose 10 mg daily for 3 days and then home dose prednisone 5 mg daily to continue. Prescription of prednisone given. Patient has left basilar better diabetes mellitus. Was on high-dose of Lantus insulin and Humalog. Lantus and Humalog insulin changed as per the last dose in the hospital. Follow-up with PCP in 1 week and collar setter Dr. Ministerio Arias within the month. Acute encephalopathy * Suspected metabolic due to dehydration, diarrhea possible hypoglycemia and possibly component of adrenal insufficiency * Avoid potentiating medications * Treat the underlying processes 10/09: Patient looks fatigued slow but awake alert oriented x 3. I think she has forgetfulness/amnesia and dementia. Acute encephalopathy resolved 10/12: Acute encephalopathy has resolved. It seems patient has mild forgetfulness/amnesia probably she has mild dementia. Adrenal insufficiency * Suspected as patient takes prednisone chronically * Patient did have hypotension when she initially presented but that is since resolved. * 50 mg of hydrocortisone 3 times daily as she seems to be improving. * 10/08: Continue home dose of hydrocortisone and she needs distress tolerance being in DKA. Once she is out of ICU, will need to change to prednisone and taper down gradually to her daily dose of 5 mg daily. * 10/10:Cortisol level is high. IV hydrocortisone changed to oral 20 mg and and 10 mg p.m. dose Hypotension possible due to DKA, and adrenal insufficiency * Due to dehydration and possibly adrenal insufficiency * BP 110/68 pulse rate 124. Sinus tachycardia * Hold losartan. 10/12: Hypotension has resolved. Blood pressure 117/83. Patient also sinus tachycardic yesterday therefore prescription was given for metoprolol 25 mg twice daily. Artery disease 96 point. Patient on losartan 25 mg daily, resumed Diarrhea * Unclear etiology * Stool for C. difficile enteric bacteriology panel are negative. Lactoferrin positive.Blood cultures x 2 and urine culture are pending. Chronic conditions * Rheumatoid arthritis: Hold off on methotrexate for now. Prednisone to be changed over to hydrocortisone for now. * Hypothyroidism: Continue with levothyroxine 150 mcg daily 10/08: TSH and free T4 ordered for tomorrow AM. VTE prophylaxis with enoxaparin CODE STATUS: Addressed with the patient. Patient wished to be full code. Total time of the visit including total time spent in counseling or coordination of care, (more than 50% of the total time, spent in obtaining medical i nformation from nurses and other ancillary care providers,explaining to the patient about labs, imaging, diagnosis and management of active complex medical conditions), coordination of care with nursing staff, respiratory therapist, review of labs and imaging is 40 minutes. Medications at Discharge Home Medications levothyroxine 150 mcg tablet 150 mcg PO DAILY THYROID 03/15/22 losartan 25 mg tablet 25 mg PO DAILY BLOOD PRESSURE 03/15/22 magnesium oxide 400 mg PO DAILY SUPPLEMENT 03/15/22 methotrexate sodium 2.5 mg tablet 12.5 mg PO QWEEK inflammation 03/15/22 sertraline 25 mg tablet 25 mg PO DAILY depression 01/10/23 acetaminophen 500 mg tablet 1,000 mg (2 x 500 mg) PO Q8 #0 tabs 02/12/23 folic acid 1 mg tablet 1 mg PO DAILY 10/08/23 insulin glargine 100 unit/mL (3 mL) subcutaneous pen (Lantus Solostar U-100 Insulin) 16 unit (0.16 mL) subcut DAILY #15 mL 10/13/23 insulin lispro 100 unit/mL subcutaneous pen (Humalog KwikPen (U-100) Insulin) 10 unit (0.1 mL) subcut TID #15 mL 10/13/23 insulin lispro 100 unit/mL subcutaneous pen (Humalog KwikPen (U-100) Insulin) See Protocol subcut ACHS #0 mL 10/13/23 metoprolol tartrate 25 mg tablet 25 mg PO BID 30 days #60 tabs 10/13/23 prednisone 10 mg tablet 10 mg PO DAILYCM 30 days #30 tabs 10/13/23 Physical Exam Narrative Seen and examined. Patient walked with the physical therapy and does not meet criteria for SNF. Patient is also awake and communicative. Answers simple questions. General: Alert, awake oriented x3, Cooperative. Chronic fatigue. HEENT: Atraumatic, PERRLA, EOMI, Normocephalic Oral: No Gingival or Mucosal Lesions/ Ulcerations Neck: Supple, No JVD, Negative Carotid Bruits Chest wall/Lungs: Air entry diminished in bilateral lung bases. No crepitation/rhonchi Cardiovascular: Regular rate, Regular Rhythm, Normal S1, Normal S2, No M/G/R Abdomen: Bowel Sounds Present, Soft, Non Tender, Non-Distended : No dysuria. No renal angle tenderness. No suprapubic tenderness. Extremities: No edema, Capillary Refill Less than 3 Seconds Skin: No rashes, No breakdown Musculoskeletal: Gait instability. No Tenderness to Palpation of Joints or Extremities. Weakness of lower extremities, needs 2 people to assist to stand up Neurological: Cranial nerves II-XII grossly intact, DTR 2+/4. No acute focal neurological deficit. Psych/Mental Status: Flat affect, dementia, hard time to recall name of president. Does not remember the month of the year. Weight / BMI Weight Weight: 131 lb 6.328 oz Body Mass Index (BMI) 22.5 ABG / Lab / Microbiology Data 10/11/23 06:35 10/13/23 06:37 Laboratory: Laboratory Results - last 24 hr 10/12/23 16:40: POC Glucose 288 H 10/12/23 21:14: POC Glucose 150 H 10/13/23 06:37: Sodium 131 L, Potassium 4.9, Chloride 102, Carbon Dioxide 19.0 L , Anion Gap 10, BUN 18, Creatinine 0.62, Estim Creat Clear Calc 55.70, Est GFR (MDRD) Af Amer 123, Est GFR (MDRD) Non-Af 102, BUN/Creatinine Ratio 29.3 H, Glucose 446 H, Calcium 8.7 10/13/23 07:35: POC Glucose 448 H 10/13/23 10:59: POC Glucose 265 H 10/13/23 13:03: POC Glucose 186 H Microbiology: Microbiology 10/08/23 12:25 Blood Culture (Wb) - Anticubital Right Blood Culture - Final No growth in 5 days. 10/08/23 11:50 Blood Culture (Wb) - Anticubital Left Blood Culture - Final No growth in 5 days. 10/08/23 12:45 Urine Catheter - Catheter Urine Culture - Final Klebsiella pneumoniae sp pneum Escherichia coli 10/08/23 16:30 Stool Stool Lactoferrin - Final 10/08/23 16:30 Stool Enteric Bacteriology - Final 10/08/23 16:30 Stool Clostridioides difficile (PCR) - Final D/C Instructions Discharge Diet: 1800 Calorie Control Diet Weight Bearing Status: Weight bearing as tolerated Call your doctor if you observe: Fever of 101 or Higher, Coldness, Increased Pain, Numbness or Tingling, Change in Color, Inability to urinate, Inability to have a bowel movement, Using more than 1 pad per hour, Shortness of breath, Dizziness, Fainting spells, Swelling in the ankles, Chest pain, Prolonged hiccupping, Increased palpitations (irregular heartbeat) and Calf discomfort When: IN 2 WEEKS Meaningful Use Info Meaningful Use Meaningful Use Diagnoses (Choose all that apply): None applicable Ischemic Stroke Statin Dosing Therapy Reference: STATIN DOSE THERAPY REFERENCE: * Patients > 75 years receive moderate or high dose statin therapy. * Patients 75 years or YOUNGER should receive HIGH intensity statin dose unless contraindicated. You will be required to document reason for non-treatment if statin daily dose does not meet guidelines. HIGH DOSE STATIN THERAPY DAILY Atorvastatin > than or = to 40 mg Rosuvastatin > than or = to 20 mg Amlodipine + Atorvastatin > than or = to 2.5/40 mg Ezetimibe + Simvastatin 10/80 mg Simvastatin 80mg Discharge Plan Admission Admit Date/Time: 10/08/23 16:48 Primary Reason for Your Visit: DKA, confusion and encephalopathy Attending Provider: Kenneth Chin Primary Care Provider: Eric Bravo Consulting Providers: Eduardo Hicks Discharge Orders/Prescriptions Prescriptions: New prednisone 10 mg Tablet 10 mg PO DAILYCM 30 Days Qty: 30 0RF Rx Instructions: Prednisone 10 mg daily for 2 days till 10/15/2023 then 5 mg daily to continue metoprolol tartrate 25 mg Tablet 25 mg PO BID 30 Days Qty: 60 0RF insulin lispro [Humalog KwikPen Insulin] 100 unit/mL Insulin Pen See Protocol subcut ACHS Qty: 0 0RF Protocol: 3. Sliding Scale Insulin Med Dosing Condition: 150-189 mg/dl = 1 unit Condition: 190-229 mg/dl = 2 units Condition: 230-269 mg/dl = 3 units Condition: 270-309 mg/dl = 4 units Condition: 310-349 mg/dl = 5 units Condition: 350-399 mg/dl = 6 units Condition: 400-449 mg/dl = 7 units Condition: Greater than 449 call physician Protocol Text: - Use for Total Daily Dose of Insulin 37-55 units - Obsese, infected, or steroid patients MEDIUM DOSING ALGORITHIM Continued methotrexate sodium 2.5 mg tablet 12.5 mg PO QWEEK Patient Comments: TAKE 5 (FIVE) tablets BY MOUTH per week losartan 25 mg tablet 25 mg PO DAILY levothyroxine 150 MCG tablet 150 mcg PO DAILY magnesium oxide 400 mg magnesium tablet 400 mg PO DAILY sertraline 25 mg tablet 25 mg PO DAILY Patient Comments: HASNT GOTTEN FILLED SINCE MARCH acetaminophen 500 mg Tablet 1,000 mg PO Q8 Qty: 0 0RF folic acid 1 mg tablet 1 mg PO DAILY Changed insulin lispro [Humalog KwikPen Insulin] 100 unit/mL insulin pen 10 unit subcut TID Qty: 15 0RF Rx Instructions: Hold if glucose less than 130 mg/dl insulin glargine [Lantus Solostar U-100 Insulin] 100 unit/mL (3 mL) insulin pen 16 unit subcut DAILY Qty: 15 0RF Discontinued prednisone 5 mg tablet 5 mg PO DAILY Patient Comments: TAKE 1 TABLET BY MOUTH EVERY MORNING Levemir FlexPen 100 unit/mL (3 mL) insulin pen 38 unit subcut QHS Referrals / Follow Up: Eric Bravo DO [Primary Care Provider] - Within 1 Week (For labile diabetes mellitus with fluctuating blood sugar.) Ministerio Arias MD [Med Staff - Courtesy Staff] - Within 1 Month (For labile/brittle diabetes mellitus. Also on prednisone 5 mg daily.) Disposition Disposition (needs filled in before D/C Order can be placed): Home Health Service Charges/Coding Visit Charges Inpatient E&M: 57885 Disch Hosp >30min
--- NOTE | 2023-10-13 14:38 | PHA.DC.MC.R ---
Pharmacy [facility] Pharm[facility] Service has performed discharge medication reconciliation and counseling for this patient. The patient's discharge medication list was reviewed for discrepancies and discrepancies were resolved. The patient was counseled on the following discharge medications and changes in medications for homegoing were reviewed. The Reason for Use, instructions for use, and potential side effects were reviewed for all new medications. The patient's questions regarding all of their medications were answered. 1. Levothyroxine 125 mcg PO daily 2. Metoprolol tartrate 25 mg PO BID 3. Prednisone 10 mg PO BID x 2 days, then 5 mg daily thereafter The patient was able to verbally demonstrate an understanding of their discharge medications. Medications at Discharge Home Medications losartan 25 mg tablet 25 mg PO DAILY BLOOD PRESSURE 03/15/22 magnesium oxide 400 mg PO DAILY SUPPLEMENT 03/15/22 methotrexate sodium 2.5 mg tablet 12.5 mg PO QWEEK inflammation 03/15/22 sertraline 25 mg tablet 25 mg PO DAILY depression 01/10/23 acetaminophen 500 mg tablet 1,000 mg (2 x 500 mg) PO Q8 #0 tabs 02/12/23 folic acid 1 mg tablet 1 mg PO DAILY 10/08/23 insulin glargine 100 unit/mL (3 mL) subcutaneous pen (Lantus Solostar U-100 Insulin) 16 unit (0.16 mL) subcut DAILY #15 mL 10/13/23 insulin lispro 100 unit/mL subcutaneous pen (Humalog KwikPen (U-100) Insulin) 10 unit (0.1 mL) subcut TID #15 mL 10/13/23 insulin lispro 100 unit/mL subcutaneous pen (Humalog KwikPen (U-100) Insulin) See Protocol subcut ACHS #0 mL 10/13/23 levothyroxine 125 mcg tablet 125 mcg PO DAILY@0600 30 days #30 tabs 10/13/23 metoprolol tartrate 25 mg tablet 25 mg PO BID 30 days #60 tabs 10/13/23 prednisone 10 mg tablet 10 mg PO DAILYCM 30 days #30 tabs 10/13/23
== END 2023-10-13 15:04 | disposition home health service (06) | DRG 682 ==
LOC: ED 16:05 → PCU 10-09 07:17 → ICU 10-09 15:54 → PCU 10-10 15:14
PROVIDERS: Hospitalist; Emergency Provider Emergency Medicine; PCP Family Medicine; Visit Provider Internal Medicine
DX: N17.9 Acute kidney failure, unspecified (principal); G93.41 Metabolic encephalopathy; I24.89 Other forms of acute ischemic heart disease; E27.40 Unspecified adrenocortical insufficiency; E11.649 Type 2 diabetes mellitus with hypoglycemia without coma; L89.152 Pressure ulcer of sacral region, stage 2; I95.9 Hypotension, unspecified; E11.10 Type 2 diabetes mellitus with ketoacidosis without coma; Z79.4 Long term (current) use of insulin; M06.9 Rheumatoid arthritis, unspecified; F03.A0 Unspecified dementia, mild, without behavioral disturbance, psychotic disturbance, mood disturbance, and anxiety; I10 Essential (primary) hypertension; E03.9 Hypothyroidism, unspecified; E86.0 Dehydration; R19.7 Diarrhea, unspecified; E87.6 Hypokalemia; R53.81 Other malaise; Z79.890 Hormone replacement therapy; Z79.52 Long term (current) use of systemic steroids; Z79.899 Other long term (current) drug therapy; Z87.891 Personal history of nicotine dependence
CPT/HCPCS: 36415; 36600; 70450; 71045; 74177; 80048; 80076; 81001; 82009; 82533; 82803; 82962; 83036; 83605; 83630; 83735; 83930; 84100; 84439; 84443; 84484; 85025; 85610; 85730; 87040; 87077; 87086; 87088; 87177; 87186; 87209; 87493; 87506; 93005; 94002; 94003; 94762; 97116; 97162; 97166; 97530; 97535; 99252; 99285; J7030; Q9967; A4216; G0463; J1940; J7799

== ENCOUNTER 2024-01-16 13:53 | Outpatient (RCR) | payer MEDICARE, OTHER, SELFPAY ==
[2024-01-16 15:06] LABS: Absolute Neutrophil Count 6.9 X10^3/uL (2.0-7.7); Basophil# 0.16 X10^3/uL; Basophil% 1.6 % (0-1); Eosinophil# 0.15 X10^3/uL; Eosinophils% 1.5 % (0-5); Hemoglobin 12.1 g/dL (12.0-15.0); Lymphocyte % 20.4 % (19-41); Mean Corp Hgb Conc 31.8 g/dL (32-36); Mean Corpuscular Hgb 27.8 pg (27.0-32.0); Mean Corpuscular Volume 87.2 fL (81-99); Mean Platelet Vol. 13.5 fl (6.2-12.0); Monocyte# 0.55 X10^3/uL; Monocyte% 5.6 % (0-10); NRBC Flagged by Analyzer 0 % (0-5); Neutrophil # 6.91 X10^3/uL (2.7-7.7); Neutrophil % 70.4 % (47-70); Platelet Count 260 K/mm3 (150-450); RBC Distribution Width CV 14.4 % (11.6-14.6); Red Blood Count 4.36 M/mm3 (4.2-5.4); White Blood Count 9.8 K/mm3 (4.4-11.0)
[2024-01-16 15:32] LABS: AST(SGOT) 15 U/L (15-37); Alanine Aminotransfer ALT/SGPT 12 U/L (13-56); CRP 9.72 mg/L (0.0-3.0); EST Glomerular Filtration Rate 66 mL/min (>60); Est Glom Filt Rate - Afr Amer 79 mL/min (>60)
[2024-01-16 16:04] LABS: Erythrocyte Sedimentation Rate 51 mm/hr (0-30)
== END 2024-01-16 18:00 | disposition home or self-care (01) ==
LOC: LAB 13:53
PROVIDERS: PCP Family Medicine; Referring Provider Internal Medicine Rheumatology; Visit Provider Internal Medicine Rheumatology
DX: R76.8 Other specified abnormal immunological findings in serum (principal); M05.79 Rheumatoid arthritis with rheumatoid factor of multiple sites without organ or systems involvement; R79.82 Elevated C-reactive protein (CRP); Z96.611 Presence of right artificial shoulder joint; Z87.39 Personal history of other diseases of the musculoskeletal system and connective tissue; Z79.52 Long term (current) use of systemic steroids; Z79.899 Other long term (current) drug therapy; Z79.631 Long term (current) use of antimetabolite agent; Z51.81 Encounter for therapeutic drug level monitoring; M18.0 Bilateral primary osteoarthritis of first carpometacarpal joints; M19.041 Primary osteoarthritis, right hand; M19.042 Primary osteoarthritis, left hand; M19.031 Primary osteoarthritis, right wrist; M19.032 Primary osteoarthritis, left wrist
CPT/HCPCS: 36415; 82565; 84450; 84460; 85025; 85652; 86140

== ENCOUNTER 2024-03-17 09:55 | Outpatient (RCR) | payer MEDICARE, OTHER, SELFPAY ==
[2024-03-17 10:25] LABS: Erythrocyte Sedimentation Rate 15 mm/hr (0-30)
[2024-03-17 10:27] LABS: Absolute Lymphocyte Count 1.96 X10^3/uL (0.83-4.51); Absolute Neutrophil Count 7.8 X10^3/uL (2.0-7.7); Basophil# 0.12 X10^3/uL; Basophil% 1.1 % (0-1); Eosinophil# 0.33 X10^3/uL; Eosinophils% 3.1 % (0-5); Hematocrit 38.8 % (37-47); Hemoglobin 12.3 g/dL (12.0-15.0); Lymphocyte # 1.96 X10^3/ul (0.83-4.51); Lymphocyte % 18.3 % (19-41); Mean Corp Hgb Conc 31.7 g/dL (32-36); Mean Corpuscular Hgb 27.6 pg (27.0-32.0); Mean Platelet Vol. 12.2 fl (6.2-12.0); Monocyte# 0.52 X10^3/uL; Monocyte% 4.8 % (0-10); NRBC Flagged by Analyzer 0 % (0-5); Neutrophil # 7.75 X10^3/uL (2.7-7.7); Neutrophil % 72.2 % (47-70); Platelet Count 214 K/mm3 (150-450); RBC Distribution Width CV 15.3 % (11.6-14.6); RBC Distribution Width SD 47.8 fl (35.1-43.9); Red Blood Count 4.46 M/mm3 (4.2-5.4); White Blood Count 10.7 K/mm3 (4.4-11.0)
[2024-03-17 11:08] LABS: AST(SGOT) 22 U/L (15-37); Alanine Aminotransfer ALT/SGPT 23 U/L (13-56); CRP < 2.90 mg/L (0.0-3.0); Creatinine, Serum 0.65 mg/dL (0.55-1.02); EST Glomerular Filtration Rate 95 mL/min (>60); Est Glom Filt Rate - Afr Amer 115 mL/min (>60)
== END 2024-03-17 18:00 | disposition home or self-care (01) ==
LOC: LAB 09:55
PROVIDERS: PCP Family Medicine; Referring Provider Internal Medicine Rheumatology; Visit Provider Internal Medicine Rheumatology
DX: M05.79 Rheumatoid arthritis with rheumatoid factor of multiple sites without organ or systems involvement (principal); R76.8 Other specified abnormal immunological findings in serum; Z79.631 Long term (current) use of antimetabolite agent; Z79.899 Other long term (current) drug therapy; Z79.620 Long term (current) use of immunosuppressive biologic; Z87.39 Personal history of other diseases of the musculoskeletal system and connective tissue; Z96.611 Presence of right artificial shoulder joint; R79.82 Elevated C-reactive protein (CRP); M19.031 Primary osteoarthritis, right wrist; M19.032 Primary osteoarthritis, left wrist; M19.041 Primary osteoarthritis, right hand; M19.042 Primary osteoarthritis, left hand; M18.0 Bilateral primary osteoarthritis of first carpometacarpal joints
CPT/HCPCS: 36415; 82565; 84450; 84460; 85025; 85652; 86140

== ENCOUNTER 2024-04-12 13:32 | Inpatient (IN) | payer MEDICARE, OTHER, SELFPAY ==
[2024-04-12] VITALS (16 sets, daily range): BP systolic 84–145; BP diastolic 60–115; PULSE 66–163; RESP 16–28; TEMP 36.1–36.9; O2SAT 95–100; BMI 21.7; BMI 20.8
--- NOTE | 2024-04-12 13:41 | EKG12_ITS ---
Test Reason : PALPATATIONS Blood Pressure : */* mmHG Vent. Rate : 140 BPM Atrial Rate : * BPM P-R Int : * ms QRS Dur : 70 ms QT Int : 308 ms P-R-T Axes : * -2 149 degrees QTcB Int : 470 ms Critical Test Result: High HR Atrial fibrillation with rapid ventricular response ST & T wave abnormality, consider lateral ischemia Abnormal ECG When compared with ECG of 12-OCT-2023 13:23, Atrial fibrillation has replaced Sinus rhythm ST now depressed in Lateral leads Nonspecific T wave abnormality now evident in Inferior leads T wave inversion more evident in Lateral leads Confirmed by JOSÉ ANTONIO CROSS, SAMEER ([id number]), photographic editor OSMAN ZAZUETA ([id number]) on 04/15/2024 11:32:51 AM Referred By: Confirmed By: SAMEER CHOU MD
[2024-04-12] MEDS: dilTIAZem 25 MG/5 ML Vial 20 MG IV BOLUS ×2 (13:45→14:50)
--- NOTE | 2024-04-12 13:55 | RAD_ITS ---
HISTORY: palpitations. TECHNIQUE: XR Chest 1 View. COMPARISON: 10/10/2023. 01/29/2023. FINDINGS: CARDIOMEDIASTINAL BORDERS: Cardiac silhouette within normal limits in size. Mediastinal contour unchanged with calcification of the aortic knob. LUNGS: Chronic coarse interstitial markings in the right upper and left lower lung with decreased bilateral hazy opacities compared with prior. Residual opacity in the right upper lobe. PLEURA: No pleural effusion or pneumothorax seen. OSSEOUS STRUCTURES: Osteopenia and degenerative change.] Shoulder arthroplasty again seen. RAD/Chest 1 View (Portable) IMPRESSION: Chronic fibrosis/interstitial lung disease with residual infection or inflammation in the right upper and left lower lung, decreased from prior. Electronically Signed: Sara Perkins MD at 14:29 EDT ,
[2024-04-12 14:03] LABS: Absolute Lymphocyte Count 2.63 X10^3/uL (0.83-4.51); Absolute Neutrophil Count 4.8 X10^3/uL (2.0-7.7); Basophil% 1.2 % (0-1); Eosinophil# 0.32 X10^3/uL; Eosinophils% 3.8 % (0-5); Hematocrit 40.1 % (37-47); Lymphocyte # 2.63 X10^3/ul (0.83-4.51); Lymphocyte % 31.6 % (19-41); Mean Corp Hgb Conc 32.4 g/dL (32-36); Mean Corpuscular Hgb 27.8 pg (27.0-32.0); Mean Corpuscular Volume 85.9 fL (81-99); Mean Platelet Vol. 12.4 fl (6.2-12.0); Monocyte# 0.48 X10^3/uL; Monocyte% 5.8 % (0-10); NRBC Flagged by Analyzer 0 % (0-5); Neutrophil # 4.76 X10^3/uL (2.7-7.7); Neutrophil % 57.2 % (47-70); Platelet Count 225 K/mm3 (150-450); RBC Distribution Width CV 15.6 % (11.6-14.6); RBC Distribution Width SD 48.3 fl (35.1-43.9); Red Blood Count 4.67 M/mm3 (4.2-5.4); White Blood Count 8.3 K/mm3 (4.4-11.0)
[2024-04-12 14:11] LABS: International Normalized Ratio 0.9; Prothrombin Time (Protime)PT. 12.5 SECONDS (11.7-14.9)
[2024-04-12 14:12] LABS: Partial Thromboplast Time 28.2 Seconds (24.1-36.2)
[2024-04-12 14:15] LABS: AST(SGOT) 22 U/L (15-37); Alanine Aminotransfer ALT/SGPT 30 U/L (13-56); Alkaline Phosphatase 112 U/L (45-117); Anion Gap 8 (5-15); BUN 17 mg/dL (7-18); BUN/Creat Ratio 26.4 RATIO (10-20); Bilirubin, Direct 0.12 mg/dL (0.00-0.30); Calcium,Total 9.5 mg/dL (8.5-10.1); Chloride 107 mmol/L (98-107); Creatinine, Serum 0.64 mg/dL (0.55-1.02); EST Glomerular Filtration Rate 97 mL/min (>60); Est Glom Filt Rate - Afr Amer 117 mL/min (>60); Globulin 4.1 g/dL (2.2-4.2); Glucose 100 mg/dL (74-106); Magnesium 1.8 mg/dL (1.6-2.6); Potassium 3.6 mmol/L (3.5-5.1); Protein, Total 8.1 g/dL (6.4-8.2); Sodium Level 141 mmol/L (136-145); Troponin-I HS 21 pg/mL (3.0-54.0)
[2024-04-12] MEDS: Diltiazem 125 MG in Dextrose 5%-Water (100mL Bag) 100 ML IV (14:29)
--- NOTE | 2024-04-12 14:48 | EX.ED.DYSGE1 ---
HPI History of Present Illness Chief Complaint: Palpitations Informant: patient and EMS Narrative Narrative: 73-year-old female presenting to the emergency room with palpitations. Patient has a history of diabetes hypertension hypothyroidism. Patient states she was sitting on her couch watching TV when she suddenly began to feel her heart racing. She kept thinking if she would breathe slowly it would decrease but it never did. She did not have any chest pain or shortness of breath. States this is never happened to her before. EMS notes a heart rate of about 170 with narrow complex. They gave adenosine with no conversion. They note that they did not see flutter waves with the 12 mg dose when it became slower. [facility] Medical History Chronic anemia Rheumatoid arthritis Diabetes mellitus, type 2 Former tobacco use Hypothyroidism HTN (hypertension) Home Medications ?Medication ?Instructions ?Recorded ?Last Taken ?Type losartan 25 mg tablet 25 mg PO DAILY BLOOD PRESSURE 03/15/22 04/11/24 History magnesium oxide 400 mg PO DAILY SUPPLEMENT 03/15/22 04/12/24 History methotrexate sodium 2.5 mg tablet 12.5 mg PO QWEEK inflammation 03/15/22 04/10/24 History acetaminophen 500 mg tablet 1,000 mg (2 x 500 mg) PO Q8 #0 tabs 02/12/23 Unknown Rx folic acid 1 mg tablet 1 mg PO DAILY 10/08/23 04/12/24 History insulin lispro 100 unit/mL See Protocol subcut ACHS #0 mL 10/13/23 Unknown Rx subcutaneous pen (Humalog KwikPen (U-100) Insulin) metoprolol tartrate 25 mg tablet 25 mg PO BID 30 days #60 tabs 10/13/23 04/12/24 Rx alendronate 70 mg tablet 70 mg PO QWEEK 04/12/24 04/10/24 History insulin glargine 100 unit/mL (3 16 unit subcut BID 04/12/24 04/12/24 History mL) subcutaneous pen (Lantus Solostar U-100 Insulin) insulin lispro 100 unit/mL 15 unit subcut TID 04/12/24 04/12/24 History subcutaneous pen (Humalog KwikPen (U-100) Insulin) levothyroxine 150 mcg tablet 150 mcg PO DAILY 04/12/24 04/12/24 History Allergy/AdvReac Type Severity Reaction Status Date / Time egg (eggs) AdvReac Vomiting Verified 04/12/24 13:41 Family History Mother Diabetes Heart disease Father Diabetes Cancer Throat cancer Surgical History s/p right shoulder surgery H/O: Social History household members: spouse Smoking Status: Former smoker alcohol intake: never substance use type: does not use ROS ROS ED Constitutional Constitutional ED: Denies chills, fever(s) or weight loss Eyes Eyes: Denies change in vision or diplopia ENT ENT ED: Denies ear pain, rhinorrhea or sore throat Cardiovascular Cardiovascular: Reports racing heartbeat; Denies chest pain or orthopnea Respiratory/Chest Respiratory/Chest: Denies cough, dyspnea or orthopnea Gastrointestinal Gastrointestinal: Denies abdominal pain, diarrhea, nausea or vomiting Genitourinary Genitourinary ED: Denies dysuria, hematuria or urinary frequency Musculoskeletal Musculoskeletal: Denies arthralgias or myalgias Integumentary Denies abscess or rash Neurologic Neurologic: Denies headache(s) or weakness Psychiatric Psychiatric: Denies anxiety, depression, suicidal ideation or suicidal thoughts Endocrine Endocrinology: Denies polydipsia, polyphagia or polyuria Allergic/Immunologic Allergic/Immunologic ED: Denies mouth swelling, tongue swelling or urticaria EXAM Physical Exam Const Vital Signs: 04/12/24 13:33 04/12/24 14:29 04/12/24 14:48 Temperature 98.4 F 97.2 F L 97.2 F L Temperature Source Oral Oral Oral Pulse Rate 163 H 146 H 153 H Respiratory Rate 20 H 24 H 23 H Blood Pressure 144/115 H 144/64 H 127/77 H Blood Pressure Mean 124 90 93 Blood Pressure Source Monitor Monitor Blood Pressure Position Sitting Sitting Blood Pressure Location Right Arm Right Arm Pulse Ox 96 96 97 Oxygen Delivery Method Room Air Room Air Room Air 04/12/24 14:52 04/12/24 15:05 Temperature Temperature Source Pulse Rate 124 H 115 H Respiratory Rate 23 H 24 H Blood Pressure 133/81 H 105/67 Blood Pressure Mean 98 79 Blood Pressure Source Blood Pressure Position Blood Pressure Location Pulse Ox 95 96 Oxygen Delivery Method Room Air Room Air Positive well nourished and well developed General Appearance ED: well developed HEENT Reports normocephalic, head/scalp atraumatic and moist mucous membranes Eyes PERRL and EOMs intact bilaterally Neck no lymphadenopathy, supple and no JVD Resp normal respiratory effort and clear to auscultation bilaterally Cardio regular rate, regular rhythm and no murmurs Rate: tachycardic GI normal to inspection, nondistended, normoactive bowel sounds and non-tender Palpation: soft Back/Spine no CVA tenderness and normal ROM Extremity normal to inspection General Extremety ED: Negative for edema General Extremity: Negative for edema Neuro oriented x3 and CN's II-XII intact bilaterally Sensorium / Orientation: alert Motor Exam: strength 5/5 throughout Psych mental status grossly normal Mood & Affect: Negative for depressed or tearful Skin no rashes or lesions noted and no wounds MDM MDM MDM Narrative Medical decision making narrative: Differential diagnosis includes acute coronary syndrome cardiac dysrhythmia (SVT A-fib AVNRT atrial flutter etc.) electrolyte abnormality anemia dehydration EKG shows a narrow complex rhythm at a rate of 140 consistent with atrial fibrillation. Patient received Cardizem and was placed on a drip. White count 8.3 hemoglobin of 13 platelet count of 225 sodium potassium magnesium within normal limits troponin is normal glucose noted to be 100. My independent interpretation of the chest x-ray is no acute process. Chronic changes associated with fibrosis is noted. As the patient has not yet converted and is currently on a Cardizem drip plan is admission. Heart rate is currently down to 94-117 bpm range. History & Record Review Discussion w/independent historian: EMS personnel and Patient Lab Data Attestation: I reviewed the patient's lab results. Labs: Laboratory Results - last 24 hr 04/12/24 13:35 WBC 8.3 RBC 4.67 Hgb 13.0 Hct 40.1 MCV 85.9 MCH 27.8 MCHC 32.4 RDW Std Deviation 48.3 H RDW Coeff of Mateus 15.6 H Plt Count 225 MPV 12.4 H Immature Gran % (Auto) 0.400 Neut % (Auto) 57.2 Lymph % (Auto) 31.6 [place] % (Auto) 5.8 Eos % (Auto) 3.8 Baso % (Auto) 1.2 H Absolute Neuts (auto) 4.8 Absolute Lymphs (auto) 2.63 Nucleated RBC % 0 PT 12.5 INR 0.9 APTT 28.2 Sodium 141 Potassium 3.6 Chloride 107 Carbon Dioxide 27.0 Anion Gap 8 BUN 17 Creatinine 0.64 Estim Creat Clear Calc 55.70 Est GFR (MDRD) Af Amer 117 Est GFR (MDRD) Non-Af 97 BUN/Creatinine Ratio 26.4 H Glucose 100 Calcium 9.5 Magnesium 1.8 Total Bilirubin 0.60 Direct Bilirubin 0.12 AST 22 ALT 30 Alkaline Phosphatase 112 Troponin I High Sens 21 Total Protein 8.1 Albumin 4.0 Globulin 4.1 Radiography Diagnostic Testing: Clinical Impression(s) from Imaging Studies Chest X-Ray 04/12/24 13:55 IMPRESSION: Chronic fibrosis/interstitial lung disease with residual infection or inflammation in the right upper and left lower lung, decreased from prior. Electronically Signed: Sara Perkins MD at 14:29 EDT , EKG Initial EKG: Attestation: I personally reviewed and interpreted this EKG as follows: Comments: Atrial fibrillation with a ventricular rate of 140 bpm Management Discussion w/another healthcare provider: Hospitalist (Dr. Hicks) Discharge Plan Dx/Rx/DC Orders Clinical Impression: Atrial fibrillation with RVR, HTN (hypertension), Hypothyroidism, Diabetes mellitus Disposition Disposition: Acute Care Hospital [facility]
--- NOTE | 2024-04-12 15:51 | HP.PCM.HOS_ITS ---
[facility] - [facility] General Date of Service: 04/12/24 Chief Complaint: Palpitations [facility] Narrative DURAN DEVI, is a 73 F who presents with palpitations. She is a 73-year-old female with history of diabetes who was watching TV and then experienced palpitations. Seen by EMS to tried adenosine but did not see any flutter waves. Patient was sent to the emergency room as noted to be in atrial fibrillation with RVR. Patient received a total of 40 mg of diltiazem bolus and then was subsequently started on a diltiazem drip. Patient has never had any A- fib in the past that she is aware of. She is feeling better though she is still tachycardic at present. [facility] Medical History Chronic anemia Rheumatoid arthritis Diabetes mellitus, type 2 Former tobacco use Hypothyroidism HTN (hypertension) Home Medications ?Medication ?Instructions ?Recorded ?Last Taken ?Type losartan 25 mg tablet 25 mg PO DAILY BLOOD PRESSURE 03/15/22 04/11/24 History magnesium oxide 400 mg PO DAILY SUPPLEMENT 03/15/22 04/12/24 History methotrexate sodium 2.5 mg tablet 12.5 mg PO QWEEK inflammation 03/15/22 04/10/24 History acetaminophen 500 mg tablet 1,000 mg (2 x 500 mg) PO Q8 #0 tabs 02/12/23 Unknown Rx folic acid 1 mg tablet 1 mg PO DAILY 10/08/23 04/12/24 History insulin lispro 100 unit/mL See Protocol subcut ACHS #0 mL 10/13/23 Unknown Rx subcutaneous pen (Humalog KwikPen (U-100) Insulin) metoprolol tartrate 25 mg tablet 25 mg PO BID 30 days #60 tabs 10/13/23 04/12/24 Rx alendronate 70 mg tablet 70 mg PO QWEEK 04/12/24 04/10/24 History insulin glargine 100 unit/mL (3 16 unit subcut BID 04/12/24 04/12/24 History mL) subcutaneous pen (Lantus Solostar U-100 Insulin) insulin lispro 100 unit/mL 15 unit subcut TID 04/12/24 04/12/24 History subcutaneous pen (Humalog KwikPen (U-100) Insulin) levothyroxine 150 mcg tablet 150 mcg PO DAILY 04/12/24 04/12/24 History Allergy/AdvReac Type Severity Reaction Status Date / Time egg (eggs) AdvReac Vomiting Verified 04/12/24 13:41 Family History Mother Diabetes Heart disease Father Diabetes Cancer Throat cancer Surgical History s/p right shoulder surgery H/O: Social History household members: spouse Smoking Status: Former smoker alcohol intake: never substance use type: does not use ROS ROS Narrative All review of systems were negative except as mentioned above in the history of present illness and the other review of systems. Vital Signs Vital Signs Vital Signs: 04/12/24 13:33 04/12/24 14:29 04/12/24 14:48 Temperature 36.9 C 36.2 C L 36.2 C L Temperature Source Oral Oral Oral Pulse Rate 163 H 146 H 153 H Respiratory Rate 20 H 24 H 23 H Blood Pressure 144/115 H 144/64 H 127/77 H Blood Pressure Mean 124 90 93 Blood Pressure Source Monitor Monitor Blood Pressure Position Sitting Sitting Blood Pressure Location Right Arm Right Arm Pulse Ox 96 96 97 Oxygen Delivery Method Room Air Room Air Room Air 04/12/24 14:52 04/12/24 15:05 04/12/24 15:26 Temperature 36.2 C L Temperature Source Oral Pulse Rate 124 H 115 H 143 H Respiratory Rate 23 H 24 H 24 H Blood Pressure 133/81 H 105/67 121/69 H Blood Pressure Mean 98 79 86 Blood Pressure Source Monitor Blood Pressure Position Sitting Blood Pressure Location Right Arm Pulse Ox 95 96 95 Oxygen Delivery Method Room Air Room Air Room Air 04/12/24 15:42 Temperature 36.4 C L Temperature Source Pulse Rate 122 H Respiratory Rate 24 H Blood Pressure 145/88 H Blood Pressure Mean 107 Blood Pressure Source Blood Pressure Position Blood Pressure Location Pulse Ox 96 Oxygen Delivery Method Weight Weight: 57.4 kg Body Mass Index (BMI) 21.7 Physical Exam Const alert and no apparent distress Constitutional Narrative: Pleasant General Appearance: cooperative HEENT normocephalic and head/scalp atraumatic Neck no lymphadenopathy Neck Narrative: No thyromegaly. Resp normal respiratory effort, no retractions, no use of accessory muscles and clear to auscultation bilaterally Cardio Cardio Narrative: Irregularly irregular GI normal to inspection, nondistended, normoactive bowel sounds, soft to palpation, non-tender, non-distended and hepatosplenomegaly Extremity normal to inspection, full ROM and no clubbing, cyanosis or edema Neuro Sensorium / Orientation: awake, alert, oriented to person, oriented to place and oriented to time Psych affect normal Results Lab / Micro Data 04/12/24 13:35 04/12/24 13:35 Labs: Laboratory Results - last 24 hr 04/12/24 13:35: WBC 8.3, RBC 4.67, Hgb 13.0, Hct 40.1, MCV 85.9, MCH 27.8, MCHC 32.4, RDW Std Deviation 48.3 H, RDW Coeff of Mateus 15.6 H, Plt Count 225, MPV 12.4 H, Immature Gran % (Auto) 0.400, Neut % (Auto) 57.2, Lymph % (Auto) 31.6, Hardeman % (Auto) 5.8, Eos % (Auto) 3.8, Baso % (Auto) 1.2 H, Absolute Neuts (auto) 4.8, Absolute Lymphs (auto) 2.63, Nucleated RBC % 0, PT 12.5, INR 0.9, APTT 28.2, Sodium 141, Potassium 3.6, Chloride 107, Carbon Dioxide 27.0, Anion Gap 8, BUN 17, Creatinine 0.64, Estim Creat Clear Calc 55.70, Est GFR (MDRD) Af Amer 117, Est GFR (MDRD) Non-Af 97, BUN/Creatinine Ratio 26.4 H, Glucose 100, Calcium 9.5, Magnesium 1.8, Total Bilirubin 0.60, Direct Bilirubin 0.12, AST 22, ALT 30, Alkaline Phosphatase 112, Troponin I High Sens 21, Total Protein 8.1, Albumin 4.0, Globulin 4.1 Imaging Radiology Impression Chest X-Ray 04/12/24 13:55 IMPRESSION: Chronic fibrosis/interstitial lung disease with residual infection or inflammation in the right upper and left lower lung, decreased from prior. Electronically Signed: Sara Perkins MD at 14:29 EDT , Assessment & Plan Assessment/Plan (1) Atrial fibrillation with RVR: PLAN: Acute presentation began today. [id number] of 3 given age of 73, female and diabetic. Received total of 40 mg IV diltiazem in the emergency room. Currently on diltiazem drip. Patient does take metoprolol titrate 25 mg twice daily and will continue with that. Start enoxaparin. Transition over to DOAC after the echocardiogram is back assuming there is no contraindication to DOAC's. If patient remains refractory to the diltiazem, may need to consider amiodarone. Check echocardiogram PLAN: Plan Chronic conditions * Diabetes mellitus type 2: Insulin-dependent. Patient takes glargine as well as prandial insulin and sliding scale. Will continue that on the floor. Patient has her own glucose sensor. Advised for her to inform her to bring in that monitor. We can use her readings if they are consistent with what we are getting here. * Hypothyroidism: Continue with levothyroxine. Patient is status post thyroid megaly for history of a goiter. Check TSH given atrial fibrillation. * Rheumatoid arthritis: Patient is receiving infusions. Follow-up with rheumatology as outpatient VTE prophylaxis: Not indicated as patient is already anticoagulated. CODE STATUS: Addressed with the patient. Patient wishes to be DNR Comfort Care arrest. Charges/Coding Visit Charges Inpatient E&M: 83345 Init Hosp L3
--- NOTE | 2024-04-12 17:08 | EKG12_ITS ---
Test Reason : Blood Pressure : */* mmHG Vent. Rate : 88 BPM Atrial Rate : 88 BPM P-R Int : 200 ms QRS Dur : 72 ms QT Int : 386 ms P-R-T Axes : 56 -12 16 degrees QTcB Int : 467 ms Normal sinus rhythm Normal ECG When compared with ECG of 12-APR-2024 13:58, MANUAL COMPARISON REQUIRED, DATA IS UNCONFIRMED Confirmed by JOSÉ ANTONIO CROSS, SAMEER ([id number]), slot editor OSMAN ZAZUETA ([id number]) on 04/15/2024 11:35:59 AM Referred By: SRIDEVI Confirmed By: SAMEER CHOU MD
[2024-04-12 17:26] LABS: Bedside Glucose 107 mg/dL (74-106)
[2024-04-12] MEDS: Metoprolol Tartrate 50 MG Tablet PO (17:51)
[2024-04-12 18:31] LABS: Troponin-I HS 26 pg/mL (3.0-54.0)
--- OUTSIDE RECORDS SUMMARY | 2024-04-12 19:55 | XMS RPT_ITS | CCD ---
Author Organization [facility] ion [facility] Care Team Providers Care Stock Room Manager Name Role Phone Tu Dotson Unavailable Grisel Alonso Unavailable Grisel Alonso Unavailable UNKNOWN, PCP Primary Care Unavailable BRITTANY, Dr. MENDOZA Attending Unavailable Lawrence DO Tavares A Primary Care Provider SIDNEY ROSE JR, JR Attending Unavaila ble SELF, SELF Referring Unavailable LAWRENCE, TAVARES A Primary Care Unavailable STAINBROOK JR GLASS, SIDNEY Attending Unavaila ble SELF, SELF Referring Unavailable LAWRENCE, TAVARES A Primary Care Unavailable STAINBROOK JR , SIDNEY Attending Unavaila ble SELF, SELF Referring Unavailable LAWRENCE, TAVARES A Primary Care Unavailable STAINBROOK JR GLASS, SIDNEY Attending Unavaila ble SELF, SELF Referring Unavailable LAWRENCE, TAVARES A Primary Care Unavailable STAINBROOK JR GLASS, SIDNEY Attending Unavaila ble SELF, SELF Referring Unavailable LAWRENCE, TAVARES A Primary Care Unavailable STAINBROOK SIDNEY GLASS Attending Unavailable LAWRENCE, TAVARES A Primary Care Unavailable STAINBROOK SIDNEY GLASS Referring Unavailable STAINBROOK , SIDNEY Attending Unavailable LAWRENCE, TAVARES A Primary Care Unavailable STAINBROOK SIDNEY GLASS Referring Unavailable LAWRENCE, TAVARES A Primary Care Unavailable STAINBROOK SIDNEY GLASS Referring Unavailable STAINBROOK , SIDNEY Attending Unavailable STAINBROOK , SIDNEY Attending Unavailable LAWRENCE, TAVARES A Primary Care Unavailable STAINBROOK SIDNEY GLASS Referring Unavailable STAINBROOK , SIDNEY Attending Unavailable LAWRENCE, TAVARES A Primary Care Unavailable JERONIMOBROOK SIDNEY GLASS Referring Unavailable STAINBROOK , SIDNEY Attending Unavailable LAWRENCE, TAVARES A Primary Care Unavailable STAINBROOK SIDNEY GLASS Referring Unavailable STAINBROOK JR, SIDNEY Attending Unavailable LAWRENCE, TAVARES A Primary Care Unavailable STAINBROOK JR, SIDNEY Referring Unavailable Allergies Allergy Classification Reported Allergen(s) Allergy Type Date of Onset Reaction(s) Facility Unclassified (1 source) ALLERGIES NOT ON FILE; 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: [ALLERGIES NOT ON FILE] Propensity to adverse reactions (disorder) [facility] (6 sources) Egg Propensity to adverse reactions to drug 9 [facility] (6 sources) Malt Propensity to adverse reactions to drug 8 [facility] (6 sources) *Seasonal Propensity to adverse reactions to substance 6 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 , Long-term use of high-risk medication , 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, shelter, current use , Rheumatoid factor positive , Primary hypertension , Hypoalbuminemia , Hyponatremia , Hypothyroidism, unspecified type , Type 1 diabetes mellitus with hyperglycemia , Pain and swelling of left knee , Bilateral hand pain , Bilateral wrist pain , Disorder of bone and cartilage , Primary osteoarthritis of both hands , Normochromic normocytic anemia 1 po q day 90 tablet 3 12/04/2022 Active 3 ml insulin aspart, human 100 unt/ml pen injector (11 sources) Insulin Analogue Start: 09-05-2022 NovoLOG FlexPen 100 UNIT/ML Solution Pen-injector injection INJECT 12 UNITS UNDER THE SKIN 3 TIMES PER DAY 09/05/2022 Active Start: 12-01-2015 NOVOLOG SOLN 4 -10 units before meals INSULIN ASPART SOLN [id number] Herminia Bolivar leucovorin 5 mg oral tablet (9 sources) Folate Analog Start: 12-04-2022 leucovorin 5 M G tablet Indications: Rheumatoid arthritis involving multiple sites with positive rheumatoid factor , Adalimumab (Humira) long-term use , Alkaline phosphatase elevation , CRP elevated , Fatigue, unspecified type , 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 , care home current use of systemic steroids , Long-term use of high-risk medication , 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, shelter, current use , Rheumatoid factor positive , Primary hypertension , Hypoalbuminemia , Hyponatremia , Hypothyroidism, unspecified type , Type 1 diabetes mellitus with hyperglycemia , Pain and swelling of left knee , Bilateral hand pain , Bilateral wrist pain , Disorder of bone and cartilage , Primary osteoarthritis of both hands , Normochromic normocytic anemia 1 po q day 12 tablet 3 12/04/2022 Active Start: 11-25-2022 End: 12-04-2022 take 1 tablet by mouth every week leucovorin 5 MG tablet TAKE 1 TABLET BY MOUTH EVERY WEEK with methtrexate 0 11/25/2022 12/04/2022 Discontinued methotrexate 2.5 mg oral tablet (10 sources) Folate Analog Metabolic Inhibitor Start: 01-16-2024 take 9 tablets by mouth once methotrexate 2.5 MG tablet Indications: Rheumatoid arthritis involving multiple sites with positive rheumatoid factor , Abnormal ANCA test , CRP elevated , H/O total shoulder replacement, right , 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 , care home current use of systemic steroids , Long-term use of high-risk medication , 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, 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, 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 , Rheumatoid factor positive , Visit for monitoring Actemra therapy , Osteoarthritis of carpometacarpal (CMC) joint of both thumbs , Primary osteoarthritis of both hands , Primary osteoarthritis of both wrists 9 po one day a week 108 tablet 3 01/16/2024 Active Start: 11-25-2022 End: 01-16-2024 methotrexate 2.5 MG tablet I ndications: Rheumatoid arthritis involving multiple sites with positive rheumatoid factor , Adalimumab (Humira) long-term use , Alkaline phosphatase elevation , CRP elevated , Fatigue, unspecified type , 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 , 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 , Long-term use of high-risk medication , 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, shelter, current use , Rheumatoid factor positive , Primary hypertension , Hypoalbuminemia , Hyponatremia , Hypothyroidism, unspecified type , Type 1 diabetes mellitus with hyperglycemia , Pain and swelling of left knee , Bilateral hand pain , Bilateral wrist pain , Disorder of bone and cartilage , Primary osteoarthritis of both hands , Normochromic normocytic anemia 8 po one day a week 96 tablet 3 12/04/2022 01/16/2024 Discontinued predniSONE 5 mg oral tablet (8 sources) Start: 12-04-2022 predniSONE 5 M G tablet Indications: Rheumatoid arthritis involving multiple sites with positive rheumatoid factor , Adalimumab (Humira) long-term use , Alkaline phosphatase elevation , CRP elevated , Fatigue, unspecified type , 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 , 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 , Long-term use of high-risk medication , 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, 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, 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 09/29/2022 Active Start: 12-01-2015 take 1 tablet by alonso th every other day LEVOTHYROXINE SODIUM 150 MCG TABS One tablet by mouth every other day LEVOTHYROXINE SODIUM [id number] Herminia Bolivar Start: 12-01-2015 take 1 tablet by alonso th every other day LEVOTHYROXINE SODIUM 137 MCG TABS One tablet by mouth every other day LEVOTHYROXINE SODIUM [id number] Herminia Bolivar 20 ml tocilizumab 20 mg/ml injection (4 sources) Interleukin-6 Receptor Antagonist Start: 01-16-2024 Tocilizumab 400 MG/2 0ML Solution Indications: Rheumatoid arthritis involving multiple sites with positive rheumatoid factor , Abnormal ANCA test , CRP elevated , H/O total shoulder replacement, right , 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 Dose not to exceed 800 mg 20 mL 11 01/16/2024 Active Completed/Discontinued Medications Medication Drug Class(es) Dates Sig (Normalized) Sig (Original) acetaminophen 325 mg / HYDROcodone bitartrate 5 mg oral tablet (3 sources) Opioid Agonist Start: 02-07-2017 take 1-2 tablets by mouth every six hours as needed HYDROCODONE-ACETAMINOPHEN 5-325 MG TABS 1-2 po q6h prn HYDROCODONE-ACETAMINOPHEN [id number] Tu Dotson 0.4 ml adalimumab 100 mg/ml auto-injector (5 sources) Tumor Necrosis Factor Artur Start: 04-28-2023 End: 09-12-2023 Adalimumab (Humira Pen) 40 MG/0.4ML Pen-injector Kit citrate free Indications: Rheumatoid arthritis involving multiple sites with positive rheumatoid factor , Abnormal ANCA test , Adalimumab (Humira) long-term use , Alkaline phosphatase elevation , CRP elevated , Elevated TSH , 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 , 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 , 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 , Long-term use of high-risk medication , 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, shelter, current use , Rheumatoid factor positive , Vitamin D deficiency , Hypothyroidism, unspecified type , Osteoarthritis of carpometacarpal (CMC) joint of both thumbs , Primary osteoarthritis of both hands , Primary osteoarthritis of both wrists , Normochromic normocytic anemia 40 mg injection every 2 weeks 2 Each 04/28/2023 09/12/2023 Discontinued Start: 12-04-2022 End: 04-28-2023 Adalimumab (Humira Pen) 40 M G/0.4ML Pen-injector Kit citrate free Indications: Rheumatoid arthritis involving multiple sites with positive rheumatoid factor , Adalimumab (Humira) long-term use , Alkaline phosphatase elevation , CRP elevated , Fatigue, unspecified type , 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 , care home current use of systemic steroids , Long-term use of high-risk medication , 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, 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, 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 , Rheumatoid factor positive , Primary hypertension , Hypoalbuminemia , Hyponatremia , Hypothyroidism, unspecified type , Type 1 diabetes mellitus with hyperglycemia , Pain and swelling of left knee , Bilateral hand pain , Bilateral wrist pain , Disorder of bone and cartilage , Primary osteoarthritis of both hands , Normochromic normocytic anemia 40 mg injection every 2 weeks 2 Each 12/04/2022 04/28/2023 Discontinued calcium (9 sources) Phosphate Binder, Calcium Start: 12-05-2015 take 1 tablet by mouth once daily CALCIUM 600+D3 600-800 MG-UNIT TABS 1 tablet by mouth daily CALCIUM CARB-CHOLECALCIFEROL [id number] Tavares Bravo DO Start: 12-01-2015 End: 12-05-2015 take 1 tablet by mouth once daily CALCIUM 600+D TABS One tablet by mouth daily CALCIUM CARBONATE-VITAMIN D TABS [id number] Tavares Bravo DO Start: 12-01-2015 take 1 tablet by alonso th once daily CALCIUM 600+D TABS One tablet by mouth daily CALCIUM CARBONATE-VITAMIN D TABS [id number] Herminia Bolivar cholecalciferol 1000 unt oral tablet (3 sources) Vitamin D Start: 12-01-2015 take 1 tablet by mouth once daily VITAMIN D3 1000 UNIT TABS One tablet by mouth daily CHOLECALCIFEROL [id number] Herminia Bolivar 1 ml diphenhydrAMINE hydrochloride 50 mg/ml cartridge (1 source) Histamine-1 Receptor Antagonist Start: 09-25-2023 End: 09-25-2023 12.5 mg, Intravenous, ONCE (OUTPT CLINIC), Starting on Fri09/25/23 at 1041, Until Fri09/25/23 at 1622 inFLIXimab-abda 100 mg injection (3 sources) Tumor Necrosis Factor Artur Start: 09-12-2023 End: 01-16-2024 inFLIXimab-abda (Renflexis) 100 MG Recon Soln injection Indications: Rheumatoid arthritis involving multiple sites with positive rheumatoid factor , Rheumatoid factor positive , 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, shelter, current use , Long-term use of high-risk medication , Infliximab (Remicade) long-term use , 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 , H/O total shoulder replacement, right , CRP elevated , Abnormal ANCA test , Primary osteoarthritis of both wrists , Primary osteoarthritis of both hands , Osteoarthritis of carpometacarpal (CMC) joint of both thumbs 3 mg/kg IV infuison over 2 hours day 1 the 2 weeks later then 4 weeks later than every 8 weeks thereafter 1 Each 09/12/2023 01/16/2024 Discontinued inFLIXimab-abda (RENFLEXIS) 170 mg in Sodium chloride 0.9%, with overfill 275 mL (total volume) IVPB (1 source) Start: 09-25-2023 End: 09-25-2023 170 mg (rounded from 174.3 mg = 3 mg/kg 58.1 kg), Intravenous, at 138 mL/hr, ONCE (OUTPT CLINIC), 1 dose, Starting on Claudia 09/25/23 at 1041, Until Claudia 09/25/23 at 1345, Week 0: First time patients start at 10mL/hr over 15 minutes, Then 20 mL/hr over 15 minutes, 40 mL/hr over 15 minutes, 80 mL/hr over 15 minutes, 150 mL/hr over 15 minutes and then 250 mL/hr for remainder of infusion. Give thru 0.22 micron filter set. Filtration Required. Do not shake. Filtration Required. Do not shake. INSULIN GLARGINE SOLN (3 sources) Insulin Analogue Start: 12-01-2015 LANTUS SOLN 22 units before bedtime INSULIN GLARGINE SOLN [id number] Herminia Bolivar losartan potassium 25 mg oral tablet (2 sources) Angiotensin 2 Receptor Artur Start: 10-02-2022 End: 04-28-2023 take 1 tablet by mouth once daily Losartan 25 MG tablet Take 1 tablet by mouth daily. 0 10/02/2022 04/28/2023 Discontinued magnesium oxide 500 mg oral tablet (3 sources) Start: 12-01-2015 take 1 tablet by mouth once daily MAGNESIUM 500 MG CAPS One tablet by mouth daily MAGNESIUM OXIDE [id number] Herminia Bolivar milk thistle extract 175 mg oral capsule (3 sources) Start: 12-01-2015 take 1 tablet by mouth once daily MILK THISTLE 175 MG CAPS One tablet by mouth daily MILK THISTLE [id number] Herminia Bolivar MULTIPLE VITAMINS-MINERALS (3 sources) Start: 12-01-2015 take 1 tablet by mouth once daily MULTIVITAMIN ADULT TABS One tablet by mouth daily MULTIPLE VITAMINS-MINERALS [id number] Herminia Bolivar Tocilizumab (ACTEMRA) 240 mg in Sodium chloride 0.9%, with overfill 122 mL (total volume) infusion (3 sources) Start: 03-26-2024 End: 03-26-2024 240 mg, Intravenous, at 122 mL/hr, Administer over 1 Hours, ONCE (OUTPT CLINIC), 1 dose, Starting on Fri03/26/24 at 1322, Until Fri03/26/24 at 1450, Start infusion within [address] nickie bag over mixture. DO NOT SHAKE. See monitoring guidelines. Start: 02-27-2024 End: 02-27-2024 240 mg, Intravenous, at 122 mL/hr, Administer over 1 Hours, ONCE (OUTPT CLINIC), 1 dose, Starting on Fri02/27/24 at 1318, Until Fri02/27/24 at 1437, Start infusion within [address] nickie bag over mixture. DO NOT SHAKE. See monitoring guidelines. Start: 01-30-2024 End: 01-30-2024 240 mg, Intravenous, at 122 mL/hr, Administer over 1 Hours, ONCE (OUTPT CLINIC), 1 dose, Starting on Fri01/30/24 at 1353, Until Fri01/30/24 at 1517, Start infusion within [address] nickie bag over mixture. DO NOT SHAKE. See monitoring guidelines. tocopheryl acid succinate,d-alpha 400 unt oral tablet (3 sources) Start: 12-01-2015 take 1 tablet by mouth every other day VITAMIN E 400 UNIT TABS One tablet by mouth every other day VITAMIN E [id number] Herminia Bolivar triamcinolone acetonide 1 mg/ml topical lotion (3 sources) Corticosteroid Start: 12-05-2015 TRIAMCINOLONE ACETONIDE 0.1 % LOTN Apply twice daily as needed to affected areas TRIAMCINOLONE ACETONIDE [id number] Tavares Bravo DO Problems Active Problems Problem Classification Problem Date Documented Date Episodic/Chronic Diabetes mellitus with complications (3 sources) Hyperglycemia due to type 1 diabetes mellitus; 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: [Type 1 diabetes mellitus with hyperglycemia] Onset: 01-16-2024 12-04-2022 Chronic Diabetes mellitus without complication (11 sources) Type 2 diabetes mellitus; 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: [Type 1 diabetes mellitus] Onset: 12-05-2015 12-05-2015 Chronic Essential hypertension (9 sources) Essential hypertension; 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: [Essential (primary) hypertension] Onset: 12-04-2022 12-04-2022 Chronic Immunity disorders (10 sources) 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; 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: [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 , unspecified] Onset: 04-28-2023 04-28-2023 Chronic Nutritional deficiencies (10 sources) Vitamin D deficiency; 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: [Vitamin D deficiency, unspecified] Onset: 04-28-2023 04-28-2023 Chronic Osteoarthritis (20 sources) Osteoarthritis of joint of bilateral hands; 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: [Primary osteoarthritis, right hand] Onset: 12-04-2022 12-04-2022 Chronic Osteoporosis (2 sources) Age-related osteoporosis without current pathological fracture; 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: [Age-related osteoporosis without current pathological fracture] Onset: 10-27-2023 Chronic Other aftercare (4 sources) care home current use of adalimumab therapy; 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: [Adalimumab (Humira) long-term use] Onset: 12-04-2022 12-04-2022 Episodic Other aftercare (4 sources) Patient encounter status; 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: [Encounter for therapeutic drug level monitoring] Onset: 01-16-2024 01-16-2024 Episodic Other aftercare (4 sources) 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; 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: [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] Onset: 10-27-2023 Episodic Other aftercare (2 sources) Encounter for therapeutic drug level monitoring; 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: [Encounter for therapeutic drug level monitoring] Onset: 01-16-2024 Episodic Other aftercare (1 source) Long-term current use of tocilizumab; 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: [Encounter for therapeutic drug level monitoring] Onset: 01-16-2024 01-16-2024 Episodic Other connective tissue disease (8 sources) History of total arthroplasty of right shoulder; 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: [Presence of right artificial shoulder joint] Onset: 09-12-2023 09-12-2023 Chronic Other connective tissue disease (2 sources) Presence of right artificial shoulder joint; 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: [Presence of right artificial shoulder joint] Onset: 09-12-2023 Chronic Other connective tissue disease (1 source) Other specified soft tissue disorders; 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: [Other specified soft tissue disorders] Onset: 04-10-2022 Episodic Residual codes; unclassified (2 sources) Localized edema; 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: [Localized edema] Onset: 04-10-2022 Episodic Rheumatoid arthritis and related disease (20 sources) Rheumatoid arthritis of multiple joints; 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: [Rheumatoid arthritis with rheumatoid factor of multiple sites without organ or systems involvement] Onset: 12-04-2022 12-04-2022 Chronic Thyroid disorders (17 sources) Hypothyroidism; 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: [Hypothyroidism, unspecified] Onset: 12-05-2015 12-05-2015 Chronic Unclassified (3 sources) Aftercare ; 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: [Encounter for other orthopedic aftercare] Onset: 03-10-2017 03-20-2017 Unclassified (1 source) care home (current) use of immunosuppressive biologic; 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: [care home (current) use of immunosuppressive biologic] Onset: 09-12-2023 Unclassified (1 source) 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 agent; 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: [care home (current) use of antimetabolite agent] Onset: 12-04-2022 Past or Other Problems Problem Classification Problem Date Documented Date Episodic/Chronic Allergic reactions (3 sources) Dermatitis; 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: [Dermatitis, unspecified] Onset: 6 12-05-2015 Episodic Deficiency and other anemia (10 sources) Normocytic normochromic anemia; 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: [Anemia, unspecified] Onset: 3 Resolved: 4 12-04-2022 Episodic Deficiency and other anemia (2 sources) Anemia, unspecified; 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: [Anemia, unspecified] Onset: 3 Episodic Fluid and electrolyte disorders (9 sources) Hyponatremia; 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: [Hypo-osmolality and hyponatremia] Onset: 3 12-04-2022 Episodic Fracture of upper limb (9 sources) 4-part fracture of surgical neck of right humerus, initial encounter for closed fracture; 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: [Displaced fracture of proximal phalanx of right little finger, initial encounter for closed fracture] Onset: 7 02-20-2017 Episodic Immunizations and screening for infectious disease (20 sources) Rheumatoid factor positive; 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: [Other specified abnormal immunological findings in serum] Onset: 3 12-04-2022 Episodic Malaise and fatigue (9 sources) Fatigue; 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: [Other fatigue] Onset: 3 12-04-2022 Episodic Other aftercare (11 sources) Long-term current use of systemic steroid; 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: [care home (current) use of systemic steroids] Onset: 3 12-04-2022 Episodic Other aftercare (12 sources) H/O: high risk medication; 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: [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] Onset: 3 12-04-2022 Episodic Other aftercare (12 sources) rat 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 methotrexate user; 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: [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, shelter, current use] Onset: 3 12-04-2022 Episodic Other aftercare (7 sources) Drug indicated; 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: [Infliximab (Remicade) long-term use] Onset: 3 Resolved: 4 09-12-2023 Episodic Other aftercare (2 sources) care home (current) use of systemic steroids; 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: [care home (current) use of systemic steroids] Onset: 3 Episodic Other bone disease and musculoskeletal deformities (9 sources) Disorder of skeletal system; 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: [Disorder of bone, unspecified] Onset: 3 12-04-2022 Episodic Other connective tissue disease (12 sources) H/O: rheumatoid arthritis; 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: [Personal history of other diseases of the musculoskeletal system and connective tissue] Onset: 3 12-04-2022 Episodic Other connective tissue disease (9 sources) Pain of bilateral hands; 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: [Pain in right hand] Onset: 3 12-04-2022 Episodic Other connective tissue disease (2 sources) Personal history of other diseases of the musculoskeletal system and connective tissue; 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: [Personal history of other diseases of the musculoskeletal system and connective tissue] Onset: 3 Episodic Other liver diseases (10 sources) Alkaline phosphatase raised; 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: [Abnormal levels of other serum enzymes] Onset: 3 12-04-2022 Episodic Other liver diseases (2 sources) Abnormal levels of other serum enzymes; 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: [Abnormal levels of other serum enzymes] Onset: 3 Episodic Other non-traumatic joint disorders (9 sources) Pain in left knee; 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: [Pain in joint, lower leg] Onset: 3 12-04-2022 Episodic Other non-traumatic joint disorders (9 sources) Bilateral wrist pain; 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: [Pain in right wrist] Onset: 3 12-04-2022 Episodic Other nutritional; endocrine; and metabolic disorders (9 sources) Hypoalbuminemia; 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: [Other disorders of plasma-protein metabolism, not elsewhere classified] Onset: 3 Resolved: 3 12-04-2022 Chronic Other screening for suspected conditions (not mental disorders or infectious disease) (20 sources) Elevated C-reactive protein; 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: [Elevated C-reactive protein (CRP)] Onset: 3 12-04-2022 Episodic Unclassified (1 source) care home (current) use of immunosuppressive biologic; 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: [care home (current) use of immunosuppressive biologic] Onset: 4 Unclassified (1 source) care home (current) use of antimetabolite agent; 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: [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 agent] Onset: 3 Results Test Name Value Interpretation Reference Range Facil ity HbA1c (Bld) [Mass fraction]o n 01-16-2024 Average glucose Estimated from glycated hemoglobin (Bld) [Mass/Vol] 246 mg/dL Normal Not Established [facility] Comment on above: Order Comment: Diagn osis of Diabetes-Adults Non-Diabetic: < or = 5.6% Increased risk for developing diabetes: 5.7-6.4% Diagnostic of diabetes: > or = 6.5% Performed By: #### [id number] #### RADHA Gutierrez ([id number]) [facility] ([facility]) [address] [place] [address] Hemoglobin A1c/Hemoglobin.to jaziel 01-16-2024 HbA1c (Bld) [Mass fraction] 10.2 % High see below [facility] Comment on above: Order Comment: Diagn osis of Diabetes-Adults Non-Diabetic: < or = 5.6% Increased risk for developing diabetes: 5.7-6.4% Diagnostic of diabetes: > or = 6.5% Performed By: #### 4 548-4 #### RADHA Gutierrez ([id number]) [facility] ([facility]) [address] [place], [place] [id number] Thyrotropinon 01-16-2024 TSH Qn 0.12 m[IU]/L Low 0.44-3.98 [facility] Comment on above: Order Comment: TSH t esting is performed using different testing methodology at [facility] than at other [facility]. Direct result comparisons should only be made within the same method. Performed By: #### 3 016-3 #### HEENA ROSAS ([id number]) [facility] ([facility]) [address] [place] [address]235 Calcidiolon 10-27-2023 25-hydroxyvitamin D3 [Mass/Vol] 40 ng/mL Normal 30-100 [facility] Comment on above: Order Comment: Defic iency: < 20 ng/ml Insufficiency: 20-29 ng/ml Sufficiency: 30-100 ng/ml This assay accurately quantifies the sum of Vitamin D3, 25-Hydroxy and Vitamin D2,25-Hydroxy. Performed By: #### 1 989-3 #### HEENA ROSAS ([id number]) [facility] ([facility]) [address] [place] [address] 56751 Collagen crosslinked C-telop eptideon 10-27-2023 Collagen crosslinked C-telopeptide [Mass/Vol] 416 pg/mL Normal [facility] Comment on above: Result Comment: Premenopausal Females: 136-689 pg/mL Postmenopausal Females: 177-1015 pg/mL REFERENCE INTERVAL: C-Telopeptide, Ntyq-Xbpqb-Zahhhv, Serum Access complete set of age- and/or gender-specific reference intervals for this test in the [facility] Test Directory ([facility]). Performed By: [facility] [address] [place] [address] Medical Claims Assistant: Bryce Dial MD, PhD CLIA Number: [id number] Performed By: #### 4 1171-0 #### [employer] KuldeepMIMIERIN) ([id number]) [address] [place] [address] Parathyrin.intacton 10-27-19 24 Parathyrin.intact [Mass/Vol] 37.2 pg/mL Normal 18.5-88.0 [facility] Comment on above: Performed By: #### 2 731-8 #### RADHA Gutierrez ([id number]) [facility] ([facility]) [id number] [place] [address] 12471 Renal function 2000 panelon 10-27-2023 Albumin BCP dye [Mass/Vol] 3.3 g/dL Low 3.4-5.0 [facility] Comment on above: Performed By: #### 2 4362-6 #### HEENA ROSAS ([id number]) [facility] ([facility]) [address] [place] [address] Anion gap [Moles/Vol] 16 mmol/L Normal 10-20 [facility] Comment on above: Performed By: #### 2 4362-6 #### HEENA ROSAS ([id number]) [facility] ([facility]) [address] [place] [address]55 Calcium [Mass/Vol] 8.5 mg/dL Low 8.6-10.3 [facility] Comment on above: Performed By: #### 2 4362-6 #### HEENA ROSAS ([id number]) [facility] ([facility]) [address] [place] [address]407 Chloride [Moles/Vol] 97 mmol/L Low 98-107 [facility] Comment on above: Performed By: #### 2 4362-6 #### HEENA ROSAS ([id number]) [facility] ([facility]) [address] [place] [address] 52307 CO2 [Moles/Vol] 28 mmol/L Normal 21-32 [facility] Comment on above: Performed By: #### 2 4362-6 #### HEENA ROSAS ([id number]) [facility] ([facility]) [address] [place] [address] 33344 Creatinine [Mass/Vol] 0.50 mg/dL Normal 0.50-1.05 [facility] Comment on above: Performed By: #### 2 4362-6 #### HEENA ROSAS ([id number]) [facility] ([facility]) [address] [place] [address]504 GFR/1.73 sq M.predicted MDRD (S/P/Bld) [Vol rate/Area] mL/min/{1.73_m2} Normal >60 [facility] Comment on above: Result Comment: Calc ulations of estimated GFR are performed using the 2020 CKD-EPI Study Refit equation without the race variable for the IDMS-Traceable creatinine methods. https://jasn.asnjournals.org/content//ASN.5363401819 Performed By: #### 2 4362-6 #### HEENA ROSAS ([id number]) [facility] ([facility]) [facility] [place] [address] Glucose [Mass/Vol] 176 mg/dL High 74-99 [facility] Comment on above: Performed By: #### 2 4362-6 #### HEENA ROSAS ([id number]) [facility] ([facility]) [address] [place] [address] 40296 Phosphate [Mass/Vol] 2.8 mg/dL Normal 2.5-4.9 [facility] Comment on above: Result Comment: The performance characteristics of phosphorus testing in heparinized plasma have been validated by the individual laboratory site where testing is performed. Testing on heparinized plasma is not approved by the FDA; however, such approval is not necessary. Performed By: #### 2 4362-6 #### HEENA ROSAS ([id number]) [facility] ([facility]) [address] [place] [address] 04600 Potassium [Moles/Vol] 3.6 mmol/L Normal 3.5-5.3 [facility] Comment on above: Performed By: #### 2 4362-6 #### HEENA ROSAS ([id number]) [facility] ([facility]) [address] [place] [address]3963 Sodium [Moles/Vol] 137 mmol/L Normal 136-145 [facility] Comment on above: Performed By: #### 2 4362-6 #### HEENA ROSAS ([id number]) [facility] ([facility]) [address] [place] [address] 66359 Urea nitrogen [Mass/Vol] 8 mg/dL Normal 6-23 [facility] Comment on above: Performed By: #### 2 4362-6 #### HEENA ROSAS ([id number]) [facility] ([facility]) [address] [place] [address] 97880 Thyrotropinon 10-27-2023 TSH Qn 0.87 m[IU]/L Normal 0.44-3.98 [facility] Comment on above: Order Comment: TSH t esting is performed using different testing methodology at [facility] than at other [facility]. Direct result comparisons should only be made within the same method. Performed By: #### 3 016-3 #### NAIK ALISON ([id number]) [facility] ([facility]) [address] [place] [address] 26929 THYROXINE,FREEon 06-11-2022 THYROXINE,FREE 1.37 ng/dL High 0.61 - 1.12 [facility] Comment on above: Result Comment: Thyr oxine Free testing is performed using different testing methodology at [facility] than at other [facility]. Direct result comparisons should only be made within the same method. . Biotin can cause falsely elevated free T4 results. Patients taking a Biotin dose of up to 10 mg/day should refrain from taking Biotin for 24 hours before sample collection. Patient taking a Biotin dose of >10 mg/day should consult with their physician or the laboratory before the blood draw. Performed By: #### T 4FRE #### [address] [address] TSHon 06-11-2022 TSH Qn 3.89 m[IU]/L Normal 0.44 - 3.98 [facility] Comment on above: Result Comment: TSH testing is performed using different testing methodology at [facility] than at other [facility]. Direct result comparisons should only be made within the same method. Performed By: #### T SH2 #### [address] [address] THYROXINE,FREEon 05-06-2022 THYROXINE,FREE 0.82 ng/dL Normal 0.61 - 1.12 [facility] Comment on above: Result Comment: Thyr oxine Free testing is performed using different testing methodology at [facility] than at other [facility]. Direct result comparisons should only be made within the same method. . Biotin can cause falsely elevated free T4 results. Patients taking a Biotin dose of up to 10 mg/day should refrain from taking Biotin for 24 hours before sample collection. Patient taking a Biotin dose of >10 mg/day should consult with their physician or the laboratory before the blood draw. Performed By: #### T 4FRE #### [place] [id number] TSHon 05-06-2022 TSH Qn 20.35 m[IU]/L High 0.44 - 3.98 [facility] [place] Comment on above: Result Comment: TSH testing is performed using different testing methodology at [facility] than at other [facility]. Direct result comparisons should only be made within the same method. Performed By: #### T SH2 #### [place] [address] [facility] Venous Duplex Ultra sound DVTon 04-10-2022 [facility] [place] [address] [id number], Vascular Lab Report Lower Venous Duplex Ultrasound Patient Name: DURAN Coleman Physician: [id number] Rosaline Combs MD Study Date: 04/10/2022 Referring Physician: KELLY SOTO MRN/PID: [id number] PCP: Accession/Order#: [id number] CC Report to: Date of : 1950 Technologist: Cristhian Romero Gender: F Technologist 2: Admission Status: Outpatient Location Performed: [facility] Diagnosis/ICD: M79.89-Left leg swelling Procedure/CPT: 37319 Peripheral venous duplex scan for DVT Limited-40086 CONCLUSIONS: Left Lower Venous Insufficiency: There is reflux noted in the popliteal vein. Right Lower Venous: Right common femoral vein is negative for deep vein thrombus. Left Lower Venous: No evidence of acute deep vein thrombus visualized in the left lower extremity. Duplicated femoral vein normal compression. Imaging AND Doppler Findings: Right Compressible Thrombus Flow CFV Yes None Spontaneous/Phasic Left Compress Thrombus Flow Iliac Spontaneous/Phasic CFV Yes None Spontaneous/Phasic PFV Yes None FV Proximal Yes None Spontaneous/Phasic FV Mid Yes None FV Distal Yes None Popliteal Yes None Reflux Peroneal Yes None PTV Partial Chronic 31475 Rosaline Combs MD Final Normal [facility] Office Visiton 05-07-2017 Documentation of current medications (procedure) Done Invalid Interpretation Code [facility] Work Phone: Tobacco smoking status NHIS Never Invalid Interpretation Code [facility] Work Phone: Tobacco use CPHS Former smoker Invalid Interpretation Code [facility] Work Phone: Office Visiton 04-07-2017 Documentation of current medications (procedure) Done Invalid Interpretation Code [facility] Work Phone: Tobacco smoking status NHIS Never Invalid Interpretation Code [facility] Work Phone: Tobacco use CPHS Former smoker Invalid Interpretation Code [facility] Work Phone: Lab Report: Basic Metabolic Profile (BMP)on 02-27-2017 Anion gap 8 mmol/L Invalid Interpretation Code 5-15 [facility] Work Phone: BUN/Creatinine Ratio 12.3 RATIO Invalid Interpretation Code 10-20 [facility] Work Phone: Calcium 8.9 mg/dL Invalid Interpretation Code 8.5-10.1 [facility] Work Phone: Chloride 95 mmol/L Low 98-107 [facility] Work Phone: CO2 27.0 mmol/L Invalid Interpretation Code 21.0-32.0 [facility] Work Phone: Creatinine 0.49 mg/dL Low 0.55-1.02 [facility] Work Phone: Creatinine 100.16 mL/min Invalid Interpretation Code [facility] Work Phone: eGFR (non-black) 136 mL/min/{1.73_m2} Invalid Interpretation Code >60 [facility] Work Phone: eGFR (non-black) 164 mL/min/{1.73_m2} Invalid Interpretation Code >60 [facility] Work Phone: Glucose mass conc 153 mg/dL High 70-110 [facility] Work Phone: Potassium molar conc 4.1 mmol/L Invalid Interpretation Code 3.5-5.1 [facility] Work Phone: Sodium 130 mmol/L Low 136-145 [facility] Work Phone: Urea nitrogen 6 mg/dL Low 7-18 [facility] Work Phone: Lab Report: CBC-Complete Blo od Cnt No Diffon 02-27-2017 Erythrocyte distribution width Auto Ratio (RBC) 14.0 % Invalid Interpretation Code 11.6-14.6 [facility] Work Phone: Erythrocytes (RBC) 3.63 10*6/uL Low 4.2-5.4 [facility] Work Phone: Hematocrit (HCT) 31.7 % Low 37-47 [facility] Work Phone: Hemoglobin mass conc (Bld) 10.3 g/dL Low 12.0-15.0 [facility] Work Phone: MCH 28.4 pg Invalid Interpretation Code 27.0-32.0 [facility] Work Phone: MCHC mass conc (RBC) 32.5 G/GL Invalid Interpretation Code 32-36 [facility] Work Phone: MCV 87.3 fL Invalid Interpretation Code 81-99 [facility] Work Phone: Platelets 243 10*3/mm3 Invalid Interpretation Code 150-450 [facility] Work Phone: PMV by Chasity 12.1 fL High 6.2-12.0 [facility] Work Phone: RDW SD 43.0 fL Invalid Interpretation Code 35.1-43.9 [facility] Work Phone: WBC (Leukocytes) 13.9 10*3/uL High 4.4-11.0 [facility] Work Phone: Lab Report: Bedside Glucoseo n 02-25-2017 Glucose mass conc 314 mg/dL High 70-110 [facility] Work Phone: Chart Maintenanceon 11-01-19 17 Hemoglobin A1c/Hemoglobin.to rebecca mass fraction (Bld) 8.8 % Invalid Interpretation Code [facility] Work Phone: Vital Signs Date Time Vital Sign Value Performing Clinician Facility 03-26-2024 14:50-0400 Body temperature 97.11 [degF] Avg Gregory Gal Infusion Nurse [facility] 03-26-2024 14:50-0400 Diastolic blood pressure 72 mm[Hg] Avg Gregory Gal Infusion Nurse 2 [facility] 03-26-2024 14:50-0400 Heart rate 81 /min Avg Gregory Gal Infusion Nurse 2 [facility] 03-26-2024 14:50-0400 Respiratory rate 16 /min Avg Gregory Gal Infusion Nurse 2 [facility] 03-26-2024 14:50-0400 SaO2% (BldA) [Mass fraction] 96 % Avg Gregory Gal Infusion Nurse 2 [facility] 03-26-2024 14:50-0400 Systolic blood pressure 126 mm[Hg] Avg Gregory Gal Infusion Nurse 2 [facility] 02-27-2024 14:38-0400 Body temperature 98.01 [degF] Avg Gregory Gal Infusion Nurse 3 [facility] 02-27-2024 14:38-0400 Diastolic blood pressure 64 mm[Hg] Avg Gregory Gal Infusion Nurse 3 [facility] 02-27-2024 14:38-0400 Heart rate 74 /min Avg Gregory Gal Infusion Nurse 3 [facility] 02-27-2024 14:38-0400 Respiratory rate 16 /min Avg Gregory Gal Infusion Nurse 3 [facility] 02-27-2024 14:38-0400 SaO2% (BldA) [Mass fraction] 97 % Avg Gregory Gal Infusion Nurse 3 [facility] 02-27-2024 14:38-0400 Systolic blood pressure 138 mm[Hg] Avg Gregory Gal Infusion Nurse 3 [facility] 01-30-2024 15:17-0400 Body temperature 98.2 [degF] Avg Gregory Gal Infusion Nurse [address] [place] [address] 01-30-2024 15:17-0400 Diastolic blood pressure 70 mm[Hg] Avg Gregory Gal Infusion Nurse [address] [place] [address] 01-30-2024 15:17-0400 Heart rate 85 /min Avg Gregory Gal Infusion Nurse [address] [place] [address] 01-30-2024 15:17-0400 Respiratory rate 16 /min Avg Gregory Gal Infusion Nurse [address] [place] [address] 01-30-2024 15:17-0400 SaO2% (BldA) [Mass fraction] 96 % Avg Gregory Gal Infusion Nurse [address] [place] [address] 01-30-2024 15:17-0400 Systolic blood pressure 148 mm[Hg] Avg Gregory Gal Infusion Nurse [address] [place] [address] 01-30-2024 13:00-0400 Body mass index (BMI) [Ratio] 20.55 kg/m2 [facility] Gregory Gal [facility]fusion Nurse [address] [place] [address] 01-30-2024 13:00-0400 Body weight 54.3 kg Avg Gregory Gal [facility]fusion Nurse [address] [place] [address] 01-16-2024 10:35-0400 Body height 162.6 cm Sidney Rose Jr., DO Work Phone: [facility] 01-16-2024 10:35-0400 Body mass index (BMI) [Ratio] 21.97 kg/m2 Sidney Rose Jr., DO Work Phone: [facility] 01-16-2024 10:35-0400 Body weight 58.06 kg Sidney Rose Jr., DO Work Phone: [facility] 01-16-2024 10:35-0400 Diastolic blood pressure 86 mm[Hg] Sidney Rose Jr., DO Work Phone: [facility] 01-16-2024 10:35-0400 Heart rate 71 /min Sidney Rose Jr., DO Work Phone: [facility] 01-16-2024 10:35-0400 SaO2% (BldA) [Mass fraction] 96 % Sidney Rose Jr., DO Work Phone: [facility] 01-16-2024 10:35-0400 Systolic blood pressure 142 mm[Hg] Sidney Rose Jr., DO Work Phone: [facility] 09-25-2023 13:45-0400 Body temperature 97.7 [degF] Avg Gregory Gal Infusion Nurse [address] [place] [address] 09-25-2023 13:45-0400 Diastolic blood pressure 70 mm[Hg] Avg Gregory Gal Infusion Nurse [address] [place] [address] 09-25-2023 13:45-0400 Heart rate 66 /min Avg Gregory Gal Infusion Nurse [address] [place] [address] 09-25-2023 13:45-0400 Respiratory rate 16 /min Avg Gregory Gal Infusion Nurse [address] [place] [address] 09-25-2023 13:45-0400 SaO2% (BldA) [Mass fraction] 96 % Avg Gregory Gal Infusion Nurse [address] [place] [address] 09-25-2023 13:45-0400 Systolic blood pressure 143 mm[Hg] Avg Gregory Gal Infusion Nurse [address] [place] [address] 09-25-2023 10:17-0400 Body mass index (BMI) [Ratio] 21.99 kg/m2 Avg Gregory Gal Infusion Nurse [address] [place] [address] 09-25-2023 10:17-0400 Body weight 58.11 kg Avg Gregory Gal Infusion Nurse [address] [place] [address] 09-12-2023 07:45-0400 Body height 162.6 cm Sidney Rose Jr., DO Work Phone: [facility] 09-12-2023 07:45-0400 Body mass index (BMI) [Ratio] 21.97 kg/m2 Sidney Rose Jr., DO Work Phone: [facility] 09-12-2023 07:45-0400 Body temperature 97 [degF] Sidney [facility] Jr[facility] 09-12-2023 07:45-0400 Body weight 58.06 kg Sidney Rose Jr., DO [facility] 09-12-2023 07:45-0400 Diastolic blood pressure 68 mm[Hg] Sidney Rose Jr., DO Work Phone: [facility] [employer] [facility] 09-12-2023 07:45-0400 Heart rate 71 /min Sidney Palaciomario albertojhonathan Menchaca, DO Work Phone: [facility] 09-12-2023 07:45-0400 SaO2% (BldA) [Mass fraction] 95 % Sidney Rose Jr., DO Work Phone: [facility] [employer] [facility] 09-12-2023 07:45-0400 Systolic blood pressure 122 mm[Hg] Sidney Palaciomario albertojhonathan Menchaca, DO Work Phone: [facility] 04-28-2023 10:52-0500 Body height 162.6 cm Sidney Rose Jr., DO Work Phone: [facility] 04-28-2023 10:52-0500 Body mass index (BMI) [Ratio] 21.99 kg/m2 Sidney Rsoe Jr., DO Work Phone: [facility] 04-28-2023 10:52-0500 Body temperature 97.7 [degF] Sidney Jeronimomario albertojhonathan Menchaca, DO Work Phone: [facility] [employer] [facility] 04-28-2023 10:52-0500 Body weight 58.1 kg Sidney Jeronimomario albertojhonathan Menchaca, DO Work Phone: [facility] 04-28-2023 10:52-0500 Diastolic blood pressure 84 mm[Hg] Sidney Jeronimomario albertojhonathan GlassBulmaro, DO Work Phone: [facility] 04-28-2023 10:52-0500 Heart rate 85 /min Sidney Rose Jr., DO Work Phone: [facility] 04-28-2023 10:52-0500 SaO2% (BldA) [Mass fraction] 95 % Sidney Rose Jr., DO Work Phone: [facility] 04-28-2023 10:52-0500 Systolic blood pressure 134 mm[Hg] Sidney Rose Jr., DO Work Phone: [facility] 12-04-2022 10:35-0400 Body height 162.6 cm Sidney Rose Jr., DO Work Phone: [facility] 12-04-2022 10:35-0400 Body mass index (BMI) [Ratio] 21.97 kg/m2 Sidney Rose Jr., DO Work Phone: [facility] 12-04-2022 10:35-0400 Body temperature 97.9 [degF] Sidney Rose Jr., DO Work Phone: [facility] 12-04-2022 10:35-0400 Body weight 58.06 kg Sidney Rose Jr., DO Work Phone: [facility] 12-04-2022 10:35-0400 Diastolic blood pressure 74 mm[Hg] Sidney Rose Jr., DO Work Phone: [facility] 12-04-2022 10:35-0400 Systolic blood pressure 112 mm[Hg] Sidney Rose Jr., DO Work Phone: [facility] 02-07-2017 14:25-0400 BMI (Body Mass Index) 24.54 kg/m2 [facility] Work Phone: 02-07-2017 14:25-0400 Weight 64.86 kg [facility] Work Phone: 12-05-2015 08:22-0400 Body Temperature 98.4 [degF] [facility] Work Phone: 12-05-2015 08:22-0400 BP Diastolic 90 mm[Hg] [facility] Work Phone: 12-05-2015 08:22-0400 BP Systolic 148 mm[Hg] [facility] Work Phone: 12-05-2015 08:22-0400 BSA (Body Surface Area) 1.71 m2 [facility] Work Phone: 12-05-2015 08:22-0400 Height 162.56 cm [facility] Work Phone: 12-05-2015 08:22-0400 Pulse (Heart Rate) 73 /min [facility] Work Phone: 12-05-2015 08:22-0400 Respiratory Rate 16 /min [facility] ter [facility] Work Phone: Encounters Encounter Date Encounter Type Care Provider Facility Start: 05-21-2024 ambulatory SIDNEY GRANT JR [facility] Start: 04-23-2024 ambulatory [facility] Start: 03-26-2024 End: 03-26-2024 Patient encounter procedure Sidney Rose DO Work Phone: [facility] Comment on above: Rheumatoid arthritis involving multiple sites with positive rheumatoid factor (Primary Dx) Start: 03-26-2024 End: 03-26-2024 ambulatory [address] [facility] Start: 02-27-2024 End: 02-27-2024 Patient encounter procedure Sidney Rose DO Work Phone: [facility] Comment on above: Rheumatoid arthritis involving multiple sites with positive rheumatoid factor (Primary Dx) Start: 02-27-2024 End: 02-27-2024 ambulatory Avg Gregory Gal Infusion Nurse 3 [facility] Start: 01-30-2024 End: 01-30-2024 ambulatory Avg Gregory Gal Infusion Nurse 6 [facility] Start: 01-30-2024 End: 01-30-2024 Patient encounter procedure Sidney Rose DO Work Phone: [facility] Comment on above: Rheumatoid arthritis involving multiple sites with positive rheumatoid factor (Primary Dx) Start: 01-16-2024 End: 01-16-2024 [facility] Start: 01-16-2024 ambulatory SIDNEY GRANT [facility] Start: 01-16-2024 End: 01-16-2024 Office outpatient visit 25 minutes Sidney Rose DO Work Phone: [facility] Comment on above: Rheumatoid arthritis involving multiple sites with positive rheumatoid factor (Primary Dx); Abnormal ANCA test; CRP elevated; H/O total shoulder replacement, right; 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; care home current use of systemic steroids; Long-term use of high-risk medication; 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 Start: 10-09-2023 [facility] Start: 09-25-2023 End: 09-25-2023 Patient encounter procedure Sidney Rose DO Work Phone: [facility] Comment on above: Rheumatoid arthritis involving multiple sites with positive rheumatoid factor (Primary Dx) Start: 09-25-2023 End: 09-25-2023 ambulatory Avg Gregory Gal Infusion Nurse 5 [facility] Start: 09-12-2023 End: 09-12-2023 Office outpatient visit 25 minutes Sidney Rose DO Work Phone: [facility] Comment on above: Rheumatoid arthritis involving multiple sites with positive rheumatoid factor (Primary Dx); Rheumatoid factor positive; 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, shelter, current use; Long-term use of high-risk medication; Infliximab (Remicade) long-term use; 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; H/O total shoulder replacement, right; CRP elevated; Abnormal ANCA test; Primary osteoarthritis of both wrists; Primary osteoarthritis of both hands; Osteoarthritis of carpometacarpal (CMC) joint of both thumbs Start: 09-12-2023 ambulatory SIDNEY JANICE GRANT [facility] Start: 04-28-2023 End: 04-28-2023 Office outpatient visit 15 minutes Sidney Rose DO Work Phone: [facility] Comment on above: Rheumatoid arthritis involving multiple sites with positive rheumatoid factor (Primary Dx); Abnormal ANCA test; Adalimumab (Humira) long-term use; Alkaline phosphatase elevation; CRP elevated; Elevated TSH; 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; 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; care home current use of systemic steroids; Long-term use of high-risk medication; 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, shelter, current use; Rheumatoid factor positive; Vitamin D deficiency; Hypothyroidism, unspecified type; Osteoarthritis of carpometacarpal (CMC) joint of both thumbs; Primary osteoarthritis of both hands; Primary osteoarthritis of both wrists; Normochromic normocytic anemia Start: 04-28-2023 [facility] [place] [facility] Start: 01-22-2023 ambulatory [facility] Start: 12-04-2022 End: 12-04-2022 Office outpatient new 45 minutes Sidney Rose DO Work Phone: [facility] Comment on above: Rheumatoid arthritis involving multiple sites with positive rheumatoid factor (Primary Dx); Adalimumab (Humira) long-term use; Alkaline phosphatase elevation; CRP elevated; Fatigue, unspecified type; 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; 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 MALLORY Wood [id number] Procedures Date Procedure Procedure Detail Performing Clinician Start: 10-27-2023 C-TELOPEPTIDE, BETA CROSS LINKED Start: 10-27-2023 PTH, INTACT Start: 10-27-2023 RENAL FUNCTION PANEL Start: 10-27-2023 Thyrotropin [Units/v olume] in Serum or Plasma Start: 10-27-2023 VITAMIN D 25-HYDROXY,TOTAL Start: 02-12-2017 End: 02-10-2018 Occupational therapy Tu Hickey Mauri Work Phone: Start: 02-07-2017 End: 02-25-2017 Ct upper extremity w/o contrast material Tu Ruperto Dotson Work Phone: Plan of Treatment Date Care Activity Detail Author Start: 05-21-2024 End: 05-21-2024 Patient encounter procedure 05/21/2024 10:30 AM EST Office Visit [facility] [address] [place] [id number] [facility], Sidney Nieves, [address] [address] [facility] Start: 04-23-2024 End: 04-23-2024 Patient encounter procedure 04/23/2024 1:00 PM EST Infusion Visit [facility] [address] [place] [id number] [facility] Start: 03-26-2024 End: 03-26-2024 Patient encounter procedure 03/26/2024 1:00 PM EDT Infusion Visit [facility] [address] [place] [address] [facility] Start: 02-27-2024 End: 02-27-2024 Patient encounter procedure 02/27/2024 1:00 PM EDT Infusion Visit [facility] [address] [place] [address] [facility] Start: 02-15-2024 COVID-19 VACCINE ( season) COVID-19 VACCINE () [facility] [employer] [facility] Start: 02-15-2024 Influenza vaccination [facility] [employer] Start: 01-16-2024 End: 01-16-2024 Patient encounter procedure 01/16/2024 10:30 AM EDT Office Visit [facility] [address] [place] [address] Sidney Rose Jr., DO [address] [place] [id number] [facility] Start: 10-09-2023 End: 10-09-2023 Patient encounter procedure 10/09/2023 10:00 AM EDT Infusion Visit [facility] [address] [place] [id number] [facility] Start: 09-12-2023 End: 09-12-2023 Patient encounter procedure 09/12/2023 8:00 AM EDT Office Visit [facility] [address] [place] [address] Sidney Rose Jr., DO [address] [place] [phone] [facility] Start: 03-25-2023 COVID-19 VACCINE ( season) COVID-19 VACCINE ( season) [facility] Start: 02-14-2023 Influenza vaccination INFLUENZA VACCINE (#1) [facility] Start: 01-22-2023 End: 01-22-2023 Patient encounter procedure 01/22/2023 9:30 AM EDT Office Visit [facility] [address] [place] [address] Sidney Rose Jr., DO [address] [place] [address] [facility] Start: 12-05-2022 End: 12-05-2023 SHAILA MULTIPLEX SCRN WITH REFLEX SHAILA MULTIPLEX SCRN WITH REFLEX Lab Routine Rheumatoid arthritis involving multiple sites with positive rheumatoid factor Adalimumab (Humira) long-term use Alkaline phosphatase elevation CRP elevated Fatigue, unspecified type 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 Comment on above: Expected: 12/05/2022 (Approximate), Expi res: 12/05/2023 Start: 12-05-2022 End: 12-05-2023 ANCA INIT SCRN (ANCA, PR3AB, MPO) ANCA INIT SCRN (ANCA, PR3AB, MPO) Lab Routine Rheumatoid arthritis involving multiple sites with positive rheumatoid factor Adalimumab (Humira) long-term use Alkaline phosphatase elevation CRP elevated Fatigue, unspecified type 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 care home current use of systemic steroids Long-term use of high-risk medication 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, shelter, current use Rheumatoid factor positive Primary hypertension Hypoalbuminemia Hyponatremia Hypothyroidism, unspecified type Type 1 diabetes mellitus with hyperglycemia Pain and swelling of left knee Bilateral hand pain Bilateral wrist pain Disorder of bone and cartilage Primary osteoarthritis of both hands Normochromic normocytic anemia Expected: 12/05/2022 (Approximate), Ex[facility] Comment on above: Expected: 12/05/2022 (Approximate), Expi res: 12/05/2023 Start: 12-05-2022 End: 12-05-2023 Angiotensin converting enzyme [Enzymatic activity/volume] in Serum or Plasma ANGIOTENSIN CONVERTING ENZYME Lab Routine Rheumatoid arthritis involving multiple sites with positive rheumatoid factor Adalimumab (Humira) long-term use Alkaline phosphatase elevation CRP elevated Fatigue, unspecified type 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 care home current use of systemic steroids Long-term use of high-risk medication 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, 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, 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 Rheumatoid factor positive Primary hypertension Hypoalbuminemia Hyponatremia Hypothyroidism, unspecified type Type 1 diabetes mellitus with hyperglycemia Pain and swelling of left knee Bilateral hand pain Bilateral wrist pain Disorder of bone and cartilage Primary osteoarthritis of both hands Normochromic normocytic anemia Expected: 12/05/2022 (Approximate), Expires: [facility] Comment on above: Expected: 12/05/2022 (Approximate), Expi res: 12/05/2023 Start: 12-05-2022 End: 12-05-2023 ANTI MITOCHONDRIAL ANTIBODY ANTI MITOCHONDRIAL ANTIBODY Lab Routine Rheumatoid arthritis involving multiple sites with positive rheumatoid factor Adalimumab (Humira) long-term use Alkaline phosphatase elevation CRP elevated Fatigue, unspecified type 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 Rheumatoid factor positive Primary hypertension Hypoalbuminemia Hyponatremia Hypothyroidism, unspecified type Type 1 diabetes mellitus with hyperglycemia Pain and swelling of left knee Bilateral hand pain Bilateral wrist pain Disorder of bone and cartilage Primary osteoarthritis of both hands Normochromic normocytic anemia Encounter for screening for other viral diseases Expected: 12/05/2022 (Approximate), Ex[facility] Comment on above: Expected: 12/05/2022 (Approximate), Expi res: 12/05/2023 Start: 12-05-2022 End: 12-05-2023 C-reactive protein C REACTIVE PROTEIN Lab Routine Rheumatoid arthritis involving multiple sites with positive rheumatoid factor Adalimumab (Humira) long-term use Alkaline phosphatase elevation CRP elevated Fatigue, unspecified type 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 Long-term use of high-risk medication 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, 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, 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 Rheumatoid factor positive Primary hypertension Hypoalbuminemia Hyponatremia Hypothyroidism, unspecified type Type 1 diabetes mellitus with hyperglycemia Pain and swelling of left knee Bilateral hand pain Bilateral wrist pain Disorder of bone and cartilage Primary osteoarthritis of both hands Normochromic normocytic anemia Expected: 12/05/2022 (Approximate), Expires: [facility]05/2023 [facility] Comment on above: Expected: 12/05/2022 (Approximate), Expi res: 12/05/2023 Start: 12-05-2022 End: 12-05-2023 CK CK Lab Routine Rheumatoid arthritis involving multiple sites with positive rheumatoid factor Adalimumab (Humira) long-term use Alkaline phosphatase elevation CRP elevated Fatigue, unspecified type 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 Long-term use of high-risk medication 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, shelter, current use Rheumatoid factor positive Primary hypertension Hypoalbuminemia Hyponatremia Hypothyroidism, unspecified type Type 1 diabetes mellitus with hyperglycemia Pain and swelling of left knee Bilateral hand pain Bilateral wrist pain Disorder of bone and cartilage Primary osteoarthritis of both hands Normochromic normocytic anemia Expected: 12/05/2022 (Approximate), Expires: [facility]05[facility]23 [facility] Comment on above: Expected: 12/05/2022 (Approximate), Expi res: 12/05/2023 Start: 12-05-2022 End: 12-05-2023 Complete blood count with white cell differential, automated CBC, EDIF, PLATELET Lab Routine Rheumatoid arthritis involving multiple sites with positive rheumatoid factor Adalimumab (Humira) long-term use Alkaline phosphatase elevation CRP elevated Fatigue, unspecified type 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 care home current use of systemic steroids Long-term use of high-risk medication 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, 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, 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 Rheumatoid factor positive Primary hypertension Hypoalbuminemia Hyponatremia Hypothyroidism, unspecified type Type 1 diabetes mellitus with hyperglycemia Pain and swelling of left knee Bilateral hand pain Bilateral wrist pain Disorder of bone and cartilage Primary osteoarthritis of both hands Normochromic normocytic anemia Expected: 12/05/2022 (Approximate), Expires: [facility]2023 [facility] Comment on above: Expected: 12/05/2022 (Approximate), Expi res: 12/05/2023 Start: 12-05-2022 End: 12-05-2023 Comprehensive metabolic 2000 panel - Serum or Plasma COMPREHENSIVE METABOLIC PANEL Lab Routine Rheumatoid arthritis involving multiple sites with positive rheumatoid factor Adalimumab (Humira) long-term use Alkaline phosphatase elevation CRP elevated Fatigue, unspecified type 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 care home current use of systemic steroids Long-term use of high-risk medication 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 Rheumatoid factor positive Primary hypertension Hypoalbuminemia Hyponatremia Hypothyroidism, unspecified type Type 1 diabetes mellitus with hyperglycemia Pain and swelling of left knee Bilateral hand pain Bilateral wrist pain Disorder of bone and cartilage Primary osteoarthritis of both hands Normochromic normocytic anemia Expected: 12/05/2022 (Approximate), Expires: [facility] Comment on above: Expected: 12/05/2022 (Approximate), Expi res: 12/05/2023 Start: 12-05-2022 End: 12-05-2023 FUNGITELL ASSAY FUNGITELL ASSAY Lab Routine Rheumatoid arthritis involving multiple sites with positive rheumatoid factor Adalimumab (Humira) long-term use Alkaline phosphatase elevation CRP elevated Fatigue, unspecified type 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 care home current use of systemic steroids Long-term use of high-risk medication 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 Comment on above: Expected: 12/05/2022 (Approximate), Expi res: 12/05/2023 Start: 12-05-2022 End: 12-05-2023 Magnesium [Mass/volume] in Serum or Plasma MAGNESIUM Lab Routine Rheumatoid arthritis involving multiple sites with positive rheumatoid factor Adalimumab (Humira) long-term use Alkaline phosphatase elevation CRP elevated Fatigue, unspecified type 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 care home current use of systemic steroids Long-term use of high-risk medication 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, shelter, 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 Comment on above: Expected: 12/05/2022 (Approximate), Expi res: 12/05/2023 Start: 12-05-2022 End: 12-05-2023 PROCALCITONIN PROCALCITONIN Lab Routine Rheumatoid arthritis involving multiple sites with positive rheumatoid factor Adalimumab (Humira) long-term use Alkaline phosphatase elevation CRP elevated Fatigue, unspecified type 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 care home current use of systemic steroids Long-term use of high-risk medication 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, shelter, 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 Comment on above: Expected: 12/05/2022 (Approximate), Expi res: 12/05/2023 Start: 12-05-2022 End: 12-05-2023 RHEUMATOID FACTOR RHEUMATOID FACTOR Lab Routin e Rheumatoid arthritis involving multiple sites with positive rheumatoid factor Adalimumab (Humira) long-term use Alkaline phosphatase elevation CRP elevated Fatigue, unspecified type 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 care home current use of systemic steroids Long-term use of high-risk medication 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, shelter, current use Rheumatoid factor positive Primary hypertension Hypoalbuminemia Hyponatremia Hypothyroidism, unspecified type Type 1 diabetes mellitus with hyperglycemia Pain and swelling of left knee Bilateral hand pain Bilateral wrist pain Disorder of bone and cartilage Primary osteoarthritis of both hands Normochromic normocytic anemia Expected: 12/05/2022 (Approximate), Expires: [facility] Comment on above: Expected: 12/05/2022 (Approximate), Expi res: 12/05/2023 Start: 12-05-2022 End: 12-05-2023 SEDIMENTATION RATE, AUTOMATED SEDIMENTATION RATE, AUTOMATED Lab Routine Rheumatoid arthritis involving multiple sites with positive rheumatoid factor Adalimumab (Humira) long-term use Alkaline phosphatase elevation CRP elevated Fatigue, unspecified type 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 Long-term use of high-risk medication 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, shelter, current use Rheumatoid factor positive Primary hypertension Hypoalbuminemia Hyponatremia Hypothyroidism, unspecified type Type 1 diabetes mellitus with hyperglycemia Pain and swelling of left knee Bilateral hand pain Bilateral wrist pain Disorder of bone and cartilage Primary osteoarthritis of both hands Normochromic normocytic anemia Expected: 12/05/2022 (Approximate), Expires: [facility] Comment on above: Expected: 12/05/2022 (Approximate), Expi res: 12/05/2023 Start: 12-05-2022 End: 12-05-2023 T-TRANSGLUTAMINASE IGA AB T-TRANSGLUTAMINASE IGA AB Lab Routine Rheumatoid arthritis involving multiple sites with positive rheumatoid factor Adalimumab (Humira) long-term use Alkaline phosphatase elevation CRP elevated Fatigue, unspecified type 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 Long-term use of high-risk medication 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, 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, 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 Rheumatoid factor positive Primary hypertension Hypoalbuminemia Hyponatremia Hypothyroidism, unspecified type Type 1 diabetes mellitus with hyperglycemia Pain and swelling of left knee Bilateral hand pain Bilateral wrist pain Disorder of bone and cartilage Primary osteoarthritis of both hands Normochromic normocytic anemia Expected: 12/05/2022 (Approximate), Expires: [facility] Comment on above: Expected: 12/05/2022 (Approximate), Expi res: 12/05/2023 Start: 12-05-2022 End: 12-05-2023 Thyrotropin [Units/volume] in Serum or Plasma TSH Lab Routine Rheumatoid arthritis involving multiple sites with positive rheumatoid factor Adalimumab (Humira) long-term use Alkaline phosphatase elevation CRP elevated Fatigue, unspecified type 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 Rheumatoid factor positive Primary hypertension Hypoalbuminemia Hyponatremia Hypothyroidism, unspecified type Type 1 diabetes mellitus with hyperglycemia Pain and swelling of left knee Bilateral hand pain Bilateral wrist pain Disorder of bone and cartilage Primary osteoarthritis of both hands Normochromic normocytic anemia Expected: 12/05/2022 (Approximate), Expires: [email or web address] Comment on above: Expected: 12/05/2022 (Approximate), Expi res: 12/05/2023 Start: 12-05-2022 End: 12-05-2023 VITAMIN D (25-HYDROXY,TOTAL) VITAMIN D (25-HYDROXY,TOTAL) Lab Routine Rheumatoid arthritis involving multiple sites with positive rheumatoid factor Adalimumab (Humira) long-term use Alkaline phosphatase elevation CRP elevated Fatigue, unspecified type 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 care home current use of systemic steroids Long-term use of high-risk medication 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, shelter, current use Rheumatoid factor positive Primary hypertension Hypoalbuminemia Hyponatremia Hypothyroidism, unspecified type Type 1 diabetes mellitus with hyperglycemia Pain and swelling of left knee Bilateral hand pain Bilateral wrist pain Disorder of bone and cartilage Primary osteoarthritis of both hands Normochromic normocytic anemia Expected: 12/05/2022 (Approximate), Expires: [facility]23 [facility] Comment on above: Expected: 12/05/2022 (Approximate), Expi res: 12/05/2023 Start: 12-05-2022 End: 12-05-2023 VITAMIN D, (1,25 DIHYDROXY) VITAMIN D, (1,25 DIHYDROXY) Lab Routine Rheumatoid arthritis involving multiple sites with positive rheumatoid factor Adalimumab (Humira) long-term use Alkaline phosphatase elevation CRP elevated Fatigue, unspecified type 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 Comment on above: Expected: 12/05/2022 (Approximate), Expi res: 12/05/2023 Start: 12-04-2022 End: 12-05-2023 XR Hand - bilateral Views XR HANDS-RHEUMATOLOGY EVAL ONLY Imaging Routine Rheumatoid arthritis involving multiple sites with positive rheumatoid factor Adalimumab (Humira) long-term use Alkaline phosphatase elevation CRP elevated Fatigue, unspecified type 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 care home current use of systemic steroids Long-term use of high-risk medication 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, shelter, current use Rheumatoid factor positive Primary hypertension Hypoalbuminemia Hyponatremia Hypothyroidism, unspecified type Type 1 diabetes mellitus with hyperglycemia Pain and swelling of left knee Bilateral hand pain Bilateral wrist pain Disorder of bone and cartilage Primary osteoarthritis of both hands Normochromic normocytic anemia Expected: 12/04/2022, Expires: 12/05/2023 [facility] Comment on above: Expected: 12/04/2022, Expires: Start: 12-04-2022 End: 12-05-2023 XR Wrist - left AP and Lateral XR WRIST LEFT AP AND LATERAL Imaging Routine Rheumatoid arthritis involving multiple sites with positive rheumatoid factor Adalimumab (Humira) long-term use Alkaline phosphatase elevation CRP elevated Fatigue, unspecified type 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 care home current use of systemic steroids Long-term use of high-risk medication 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, shelter, current use Rheumatoid factor positive Primary hypertension Hypoalbuminemia Hyponatremia Hypothyroidism, unspecified type Type 1 diabetes mellitus with hyperglycemia Pain and swelling of left knee Bilateral hand pain Bilateral wrist pain Disorder of bone and cartilage Primary osteoarthritis of both hands Normochromic normocytic anemia Expected: 12/04/2022, Expires: 12/05/2023 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 Comment on above: Expected: 12/04/2022, Expires: 4 Start: 08-26-2021 COVID-19 VACCINE (4 - Pfizer series) COVID-19 VACCINE (4 - Pfizer series) [facility] Start: 01-06-[address] [facility] Start: 2017 Pneumococcal vaccination PNEUMOCOCCAL VACCINE SERIES (1 - PCV) [facility] Start: 05-07-2017 End: 05-07-2017 Radex shoulder complete minimum 2 views X-Ray, Shoulder [facility] Work Phone: Start: 05-07-2017 End: 05-07-2017 Appointment Appointment [facility] Work Phone: Start: 04-07-2017 End: 04-07-2017 Radex shoulder complete minimum 2 views X-Ray, Shoulder [facility] Work Phone: Start: 03-12-2017 End: 03-12-2017 Physical Therapy General Physical Therapy [facility], [address] [place] [address], [id number] [facility] Work Phone: Start: 03-10-2017 End: 03-10-2017 Radex shoulder complete minimum 2 views X-Ray, Shoulder [facility] Work Phone: Start: 02-12-2017 End: 02-12-2017 Occupational Therapy General Occupational Therapy [facility], [address] [place] [address], [id number] [facility] Work Phone: Start: 02-07-2017 End: 02-25-2017 Ct upper extremity w/o contrast material CT Upper Extremity [facility] Work Phone: Start: 2012 RSV VACCINE (1 - 1-dose 60+ series) RSV VACCINE (1 - 1-dose 60+ series) [facility] Start: 2002 Zoster vaccine hzv live for subcutaneous use ZOSTER (SHINGLES) VACCINE (1 of 2) [facility] Start: 1997 Screening for malignant neoplasm of colon COLORECTAL CANCER SCREENING DISCUSSION [facility] Start: 1992 Lipid panel LIPID SCREENING [facility] Start: 1992 Screening for malignant neoplasm of breast MAMMOGRAM SCREENING DISCUSSION [facility] Start: 1973 Screening for malignant neoplasm of cervix CERVICAL CANCER SCREENING DISCUSSION [facility] Start: 1971 Third diphtheria, tetanus and acellular pertussis (DTaP) vaccination TDAP (ADULT) [facility] Start: 1952 Hepatitis C screening HEPATITIS C VIRUS SCREENING [facility] Start: 1952 Screening for osteoporosis DEXA SCAN DISCUSSION [facility] Start: [address] [facility] Start: 1952 Thyroid stimulating hormone measurement TSH 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 Comment on above: Every 8 Weeks for 6 Occurrences starting 04/28/2023 until 04/28/2024 End: 09-11-2024 Alanine aminotransferase [Enzymatic activity/volume] in Serum or Plasma ALT Lab Routine Rheumatoid arthritis involving multiple sites with positive rheumatoid factor Rheumatoid factor positive 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 Comment on above: Every 8 Weeks for 6 Occurrences starting 01/16/2024 until 01/15/2025 End: 04-28-2024 Aspartate aminotransferase [Enzymatic activity/volume] in Serum or Plasma AST Lab Routine Rheumatoid arthritis involving multiple sites with positive rheumatoid factor Abnormal ANCA test Adalimumab (Humira) long-term use Alkaline phosphatase elevation CRP elevated Elevated TSH 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 care home current use of systemic steroids Long-term use of high-risk medication 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, shelter, current use Rheumatoid factor positive Vitamin D deficiency Hypothyroidism, unspecified type Osteoarthritis of carpometacarpal (CMC) joint of both thumbs Primary osteoarthritis of both hands Primary osteoarthritis of both wrists Normochromic normocytic anemia Every 8 Weeks for 6 Occurrences starting 04/28/2023 until 04/28/2024 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 Comment on above: Every 8 Weeks for 6 Occurrences starting 09/12/2023 until 09/11/2024 End: 01-15-2025 Aspartate aminotransferase [Enzymatic activity/volume] in Serum or Plasma AST Lab Routine Rheumatoid arthritis involving multiple sites with positive rheumatoid factor Abnormal ANCA test CRP elevated H/O total shoulder replacement, right 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 care home current use of systemic steroids Long-term use of high-risk medication 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, shelter, current use Rheumatoid factor positive Visit for monitoring Actemra therapy Osteoarthritis of carpometacarpal (CMC) joint of both thumbs Primary osteoarthritis of both hands Primary osteoarthritis of both wrists Every 8 Weeks for 6 Occurrences starting 01/16/2024 until 01/15/2025 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 Rheumatoid factor positive Vitamin D deficiency Hypothyroidism, unspecified type Osteoarthritis of carpometacarpal (CMC) joint of both thumbs Primary osteoarthritis of both hands Primary osteoarthritis of both wrists Normochromic normocytic anemia Every 8 Weeks for 6 Occurrences starting 04/28/2023 until 04/28/2024 [facility] Comment on above: Every 8 Weeks for 6 Occurrences starting 04/28/2023 until 04/28/2024 End: 09-11-2024 C-reactive protein C REACTIVE PROTEIN Lab Routine Rheumatoid arthritis involving multiple sites with positive rheumatoid factor Rheumatoid factor positive 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, shelter, current use Long-term use of high-risk medication Infliximab (Remicade) long-term use 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 H/O total shoulder replacement, right CRP elevated Abnormal ANCA test Primary osteoarthritis of both wrists Primary osteoarthritis of both hands Osteoarthritis of carpometacarpal (CMC) joint of both thumbs Every 8 Weeks for 6 Occurrences starting 09/12/2023 until 09/11/2024 [facility] Comment on above: Every 8 Weeks for 6 Occurrences starting 09/12/2023 until 09/11/2024 End: 01-15-2025 C-reactive protein C REACTIVE PROTEIN Lab Routine Rheumatoid arthritis involving multiple sites with positive rheumatoid factor Abnormal ANCA test CRP elevated H/O total shoulder replacement, right 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 Long-term use of high-risk medication 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, 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, 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 Rheumatoid factor positive Visit for monitoring Actemra therapy Osteoarthritis of carpometacarpal (CMC) joint of both thumbs Primary osteoarthritis of both hands Primary osteoarthritis of both wrists Every 8 Weeks for 6 Occurrences starting 01/16/2024 until 01/15/2025 [email or web address] Comment on above: Every 8 Weeks for 6 Occurrences starting 01/16/2024 until 01/15/2025 End: 04-28-2024 Complete blood count with white cell differential, automated CBC, EDIF, PLATELET Lab Routine Rheumatoid arthritis involving multiple sites with positive rheumatoid factor Abnormal ANCA test Adalimumab (Humira) long-term use Alkaline phosphatase elevation CRP elevated Elevated TSH 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 care home current use of systemic steroids Long-term use of high-risk medication 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, 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, 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 Rheumatoid factor positive Vitamin D deficiency Hypothyroidism, unspecified type Osteoarthritis of carpometacarpal (CMC) joint of both thumbs Primary osteoarthritis of both hands Primary osteoarthritis of both wrists Normochromic normocytic anemia Every 8 Weeks for 6 Occurrences starting 04/28/2023 until 04/28/2024 [facility] Comment on above: Every 8 Weeks for 6 Occurrences starting 04/28/2023 until 04/28/2024 End: 09-11-2024 Complete blood count with white cell differential, automated CBC, EDIF, PLATELET Lab Routine Rheumatoid arthritis involving multiple sites with positive rheumatoid factor Rheumatoid factor positive 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, 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, 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 use Long-term use of high-risk medication Infliximab (Remicade) long-term use 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 H/O total shoulder replacement, right CRP elevated Abnormal ANCA test Primary osteoarthritis of both wrists Primary osteoarthritis of both hands Osteoarthritis of carpometacarpal (CMC) joint of both thumbs Every 8 Weeks for 6 Occurrences starting 09/12/2023 until 09/11/2024 [facility] [employer] [facility] Comment on above: Every 8 Weeks for 6 Occurrences starting 09/12/2023 until 09/11/2024 End: 01-15-2025 Complete blood count with white cell differential, automated CBC, EDIF, PLATELET Lab Routine Rheumatoid arthritis involving multiple sites with positive rheumatoid factor Abnormal ANCA test CRP elevated H/O total shoulder replacement, right 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 care home current use of systemic steroids Long-term use of high-risk medication 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, shelter, current use Rheumatoid factor positive Visit for monitoring Actemra therapy Osteoarthritis of carpometacarpal (CMC) joint of both thumbs Primary osteoarthritis of both hands Primary osteoarthritis of both wrists Every 8 Weeks for 6 Occurrences starting 01/16/2024 until 01/15/2025 [email or web address] Comment on above: Every 8 Weeks for 6 Occurrences starting 01/16/2024 until 01/15/2025 End: 04-28-2024 Creatinine [Mass/volume] in Serum or Plasma CREATININE SERUM Lab Routine Rheumatoid arthritis involving multiple sites with positive rheumatoid factor Abnormal ANCA test Adalimumab (Humira) long-term use Alkaline phosphatase elevation CRP elevated Elevated TSH 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 Long-term use of high-risk medication 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, 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, current use Rheumatoid factor positive Vitamin D deficiency Hypothyroidism, unspecified type Osteoarthritis of carpometacarpal (CMC) joint of both thumbs Primary osteoarthritis of both hands Primary osteoarthritis of both wrists Normochromic normocytic anemia Every 8 Weeks for 6 Occurrences starting 04/28/2023 until 04/28/2024 [facility] Comment on above: Every 8 Weeks for 6 Occurrences starting 04/28/2023 until 04/28/2024 End: 09-11-2024 Creatinine [Mass/volume] in Serum or Plasma CREATININE SERUM Lab Routine Rheumatoid arthritis involving multiple sites with positive rheumatoid factor Rheumatoid factor positive 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, 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, current use Long-term use of high-risk medication Infliximab (Remicade) long-term use 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 H/O total shoulder replacement, right CRP elevated Abnormal ANCA test Primary osteoarthritis of both wrists Primary osteoarthritis of both hands Osteoarthritis of carpometacarpal (CMC) joint of both thumbs Every 8 Weeks for 6 Occurrences starting 09/12/2023 until 09/11/2024 [facility] Comment on above: Every 8 Weeks for 6 Occurrences starting 09/12/2023 until 09/11/2024 End: 01-15-2025 Creatinine [Mass/volume] in Serum or Plasma CREATININE SERUM Lab Routine Rheumatoid arthritis involving multiple sites with positive rheumatoid factor Abnormal ANCA test CRP elevated H/O total shoulder replacement, right 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 Long-term use of high-risk medication 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, 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, 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 use Rheumatoid factor positive Visit for monitoring Actemra therapy Osteoarthritis of carpometacarpal (CMC) joint of both thumbs Primary osteoarthritis of both hands Primary osteoarthritis of both wrists Every 8 Weeks for 6 Occurrences starting 01/16/2024 until 01/15/2025 [email or web address] Comment on above: Every 8 Weeks for 6 Occurrences starting 01/16/2024 until 01/15/2025 End: 04-28-2024 SEDIMENTATION RATE, AUTOMATED SEDIMENTATION RATE, AUTOMATED Lab Routine Rheumatoid arthritis involving multiple sites with positive rheumatoid factor Abnormal ANCA test Adalimumab (Humira) long-term use Alkaline phosphatase elevation CRP elevated Elevated TSH 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 Long-term use of high-risk medication 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, shelter, current use Rheumatoid factor positive Vitamin D deficiency Hypothyroidism, unspecified type Osteoarthritis of carpometacarpal (CMC) joint of both thumbs Primary osteoarthritis of both hands Primary osteoarthritis of both wrists Normochromic normocytic anemia Every 8 Weeks for 6 Occurrences starting 04/28/2023 until 04/28/2024 [email or web address] Comment on above: Every 8 Weeks for 6 Occurrences starting 04/28/2023 until 04/28/2024 End: 09-11-2024 SEDIMENTATION RATE, AUTOMATED SEDIMENTATION RATE, AUTOMATED Lab Routine Rheumatoid arthritis involving multiple sites with positive rheumatoid factor Rheumatoid factor positive 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 Comment on above: Every 8 Weeks for 6 Occurrences starting 01/16/2024 until 01/15/2025 Immunizations Immunization Date Immunization Notes Care Provider Gil lafleur 03-17-2022 influenza virus vaccine, unspecified formulation Sidney Rose Jr., DO Work Phone: [facility] Payers Date Payer Category Payer Medicare MEDICARE MEDICAR E A AND B [id number] 2022-Present [address] [place] [address] [id number]. [id number] 2022 Unknown [id number]. 1.13.172. [id number] 2022 Private Health Insurance [id number] 2017 Medicare [id number] 1950 Unknown [id number] 2.16.840.1.264356.3.579. 2.1069 1952 Unknown [id number] 2.16.840.1.547124.3.579. 2.983 1952 Unknown [id number] 2.16.840.1.688680.3.579. 2.983 1952 Unknown [id number] 2.16.840.1.470794.3.579. 2.983 1952 Unknown [id number] 2.16.840.1.983865.3.579. 2.983 1952 Unknown [id number] 2.16.840.1.547938.3.579. 2.983 1952 Unknown [id number] 2.16.840.1.103751.3.579. 2.1245 1952 Unknown [id number] 2.16.840.1.962771.3.579. 2.1245 1952 Unknown [id number] 2.16.840.1.352347.3.579. 2.983 1952 Unknown [id number] 2.16.840.1.333881.3.579. 2.983 1952 Unknown [id number] 2.16.840.1.196255.3.579. 2.983 1952 Unknown [id number] 2.16.840.1.133573.3.579. 2.983 1952 Unknown [id number] 2.16.840.1.880255.3.579. 2.983 1952 Unknown [id number] 2.16.840.1.308058.3.579. 2.983 1952 Unknown [id number] 2.16.840.1.083995.3.579. 2.98 Unknown [id number] Social History Date Type Detail Facility Start: 12-04-2022 Tobacco smoking stat [facility] Ex-smoker [facility] History of tobacco use Current smoker [facility] History of tobacco use Cigarette Smoker [facility] Start: 12-04-2022 Tobacco use and exposure Smokeless tobacco non-user [facility] Start: 07-01-2022 End: 01-16-2024 History of [address] function [facility] Start: 07-01-2022 End: 01-16-[address] [facility] Start: 1950 Sex Assigned At Not on file [facility] Medical Equipment Procedure Code Equipment Code Equipment Origin al Text Equipment Identifier Dates USE WITH INSULIN PENS FOUR TIMES DAILY [id number] Start: 11-29-2022 Clinical Notes 12-04-2022 to 03-26-2024 Michoacano Darden RN - 03/26/2024 1:00 PM Josiah Darden RN - 03/26/2024 1:00 PM Han Jaramillo RN - 02/27/2024 1:00 PM Cas Perez RN - 01/30/2024 1:00 PM EDT Note Date & Type Note Facility 03-26-2024 History of Presen t illness Narrative 1305 - Pt arrives to infusion clinic ambulatory for Actemra infusion. Immediate needs assessed. Denies surgery in the last month, planned for next month, no known infections, not on any antibiotics/antivirals, no open wounds or live vaccines. Diet tiara-asha provided per pt request. Denies needs or c/o. 1348 - Actemra infusion started at this time. Warm blanket provided. 1450 - Infusion complete. Pt tolerated well. Vitals obtained. Denies needs or c/o. 1452 - Discharged ambulatory in stable condition. Verbalizes understanding of instructions. documented in this encounter [facility] 02-27-2024 History of Presen t illness Narrative 1300 Pt. Arrived to clinic for actemra infusion. Pt. States 1st infusion went well, denies side effects. Pt. Denies infections, live vaccines, open wounds, or surgeries. IV started, pt. Tolerated well. Assessment complete. Pt. Tolerated well. Snack provided. Call light in reach, spouse by pt. Side. 1400 Pt. Tolerating infusion well. Denies needs. Call light in reach. 1445 Infusion complete. Pt. Tolerated without adverse reaction. Vitals stable. AVS given. Pt. Denies questions or concerns. IV dc'd. Pt. Discharged ambulatory. documented in this encounter [facility] 01-30-2024 History of Presen t illness Narrative 1300: Patient arrives to clinic ambulatory for Actemra IV. Accompanied by spouse. 1335: IV inserted into right FA x 2 attempts. 1522: Infusion completed-no adverse reaction noted-IV DC'D-AVS printed. Patient leaves clinic ambulatory accompanied by . [facility] 01-16-[facility]24 History of Presen t illness Narrative Subjective History of Present Illness Humira has not been tried. Now has found out the Humira co-pay is too expensive. Due to the greed and despicable nature of her insurance the copy on humira is too expensive. Renflexis started 09/2023. Patient had one dose and stopped as she felt it made her dizzy. Presence of Pain: denies pain/discomfort. Total time spent in this encounter was 30 minutes. All questions answered for the patient and . Joint pain is knees are a little bit sore. Patient is here today for her 4 Month Follow-up. Patient states she had one infusion then stopped because it caused dizziness and she did not feel good. Patient states she is not having joint pain. Patient has had a serious adverse event to medication which could have increased morbidity or mortality. I have been told that patient is on a high risk medication as it either treats cancer or requires blood work every 2-3 months. I have been told that prednisone is a high risk medication. Patient did not get lab as instructed. Objective Review of Systems Constitutional: Negative. HENT: Negative. Eyes: Negative. Respiratory: Negative. Cardiovascular: Negative. Gastrointestinal: Negative. Endocrine: Negative. Genitourinary: Negative. Musculoskeletal: Positive for arthralgias and gait problem. Skin: Negative. Allergic/Immunologic: Negative. Neurological: Positive for dizziness. Hematological: Negative. Psychiatric/Behavioral: Negative. Vitals: Blood pressure 142/86, pulse 71, height 1.626 m (5' 4 ), weight 58.1 kg (128 lb), SpO2 96%. Physical Exam Vitals and nursing note reviewed. Constitutional: Appearance: Normal appearance. HENT: Head: Normocephalic and atraumatic. Right Ear: External ear normal. Left Ear: External ear normal. Nose: Nose normal. Mouth/Throat: Mouth: Mucous membranes are moist. Pharynx: Oropharynx is clear. Comments: Poor dentition Eyes: Extraocular Movements: Extraocular movements intact. Conjunctiva/sclera: Conjunctivae normal. Pupils: Pupils are equal, round, and reactive to light. Comments: Glasses OS exopthalmic Cardiovascular: Rate and Rhythm: Normal rate and regular rhythm. Pulses: Radial pulses are 2+ on the right side and 2+ on the left side. Heart sounds: Normal heart sounds. Pulmonary: Effort: Pulmonary effort is normal. Breath sounds: Normal breath sounds. Abdominal: General: Bowel sounds are normal. Palpations: Abdomen is soft. Musculoskeletal: Right shoulder: Tenderness present. Decreased range of motion. Left shoulder: Tenderness present. Decreased range of motion. Right upper arm: Tenderness present. Left upper arm: Tenderness present. Right elbow: Decreased range of motion. Left elbow: Decreased range of motion. Right forearm: Normal. Left forearm: Normal. Right wrist: Decreased range of motion. Left wrist: Decreased range of motion. Right hand: Deformity present. Decreased range of motion. Decreased strength. Left hand: Deformity present. Decreased range of motion. Decreased strength. Cervical back: Neck supple. Right upper leg: Normal. Left upper leg: Normal. Right knee: Decreased range of motion. Tenderness present. Left knee: Deformity present. Decreased range of motion. Tenderness present. Right lower leg: Normal. Left lower leg: Normal. Right ankle: Decreased range of motion. Left ankle: Decreased range of motion. Skin: General: Skin is warm and dry. Neurological: Mental Status: She is alert and oriented to person, place, and time. Cranial Nerves: Cranial nerves 2-12 are intact. Motor: Weakness present. Gait: Gait abnormal. Comments: Decreased excel specialist strength both hands and walker. Psychiatric: Mood and Affect: Mood normal. Behavior: Behavior normal. Thought Content: Thought content normal. Judgment: Judgment normal. Neurological Exam Mental Status Alert. Oriented to person, place, and time. Cranial Nerves CN II: Vision test: Glasses OS exopthalmic. CN III, IV, : Extraocular movements intact bilaterally. Pupils equal round and reactive to light bilaterally. Gait Abnormal gait. Decreased excel specialist strength both hands and walker. . Assessment and Plan Encounter Diagnoses Name Primary? 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 Time was spent with the patient today in education in re: to all their medical conditions. A complete H&P&ROS was obtained and is either in this note or in the EHR. Please do not hesitate to contact me with any questions or concerns re: this patient. Past History Past medical, surgical, family, and social histories have been reviewed and updated with the patient today and are located elsewhere in the medical record. 2. Thank you for allowing me to participate in the care of your patient. With your permission I would like to F/U with your patient. 3. Hold Methtorexate week before, week during and, week after any surgery. Hold 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 any time have an infection can restart once off of ATB and/or antiviral and free of infection. Hold 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 week before, week during and, week after any live attenuated vaccine (shingles). Monitor CBC/LFT/Renal func every 2-3 months on 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. Hold 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 anytime there is an open wound and can restart once wound has healed 4. Due to the greed and despicable nature of her insurance the copy on humira is too expensive 5. Patient is also taking Humalog 6. Glucose was elevated at 322 7. Negative ASMA, Hep A&B&C serology, SPEP/SIF, cANCA, pANCA, MPO, PR3, Celiac, CCP, AMA, SHAILA, Fungitell Assay, Procalcitonin, 8. Atypical pANCA was elevated at 1:160 9. Alk phos was elevated at 179 10. 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 Sodium was low at 130 12. CRP was elevated at 13.6 and still is at 4.71 13. ESR was elevated at 59 and is now normal at 29 14. Rheumatoid factor was elevated at 92 and then again at 18.0 15. Would monitor CBC/LFT/renal function every 6-12 months as long as Atypical p ANCA is elevated 16. Uric acid was normal at 4.0 17. Globulin was elevated at 4.6 18. TSH was elevated at 19.3 and patient is going to Follow-up with PCP 19. Rx given for Renflexis: Patient had one dose and stopped as she felt it made her dizzy 20. TB test was negative 21. Rx given for 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 to increase to 9 pills one day a week 22. X-ray of R knee shows OA per patient 23. Vit d under care of PCP per patient. 24. Rx given for Actemra IV 25. Rx given for PT/OT: went good and patient is doing HEP 26. 90 day supply on medication 27. Erosions both hands 28. Lab on or about 01/16/2024 and every 2 months thereafter 29. Patient is going to Follow-up with PCP about HTN. 30. Hold Actemra sc 2 weeks before and 2 weeks after any surgery or live vaccine (shingles). Hold Actemra IV month before and month after any surgery or live vaccine (shingles). Hold Actemra anytime have an infection and can restart once off of ATB and/or antiviral and free of infection. Hold Actemra if have open wound and can restart once wound has healed. 31. Follow-up with me in 4 months documented in this encounter [facility] 09-25-2023 History of Presen t illness Narrative 1024 Patient present in infusion clinic for IV Renflexis. IV started in right AC without difficulty, patient denies pain or discomfort to site. Weight and VS obtained, assessment complete. Patient denies any current infections, wounds, procedures or live vaccines. Cup of coffee provided to patient, patient denies any other immediate needs. 1125 Patient ambulates to bathroom with walker and without difficulty. 1132 Infusion started, explained possible side effects with patient. Patient verbalizes understanding. Call light in easy reach. 1150 Patient tolerating infusion well, denies feeling any adverse effects. VS stable. Rate titrated per orders. Menus provided to patient and her . 1256 Patient continues to tolerated infusion well. Rate changed to max rate. VS stable. 1350 Infusion complete, patient tolerated well. VS stable. IV removed without difficulty, catheter intact, site asymptomatic, dry dressing applied. AVS printed and reviewed with patient, patient verbalizes understanding. Patient discharged ambulatory with walker and accompanied by her . Patient in stable condition. [facility] History of Presen t illness Narrative Subjective History of Present Illness Humira has not been tried. Now has found out the Humira co-pay is too expensive. Due to the greed and despicable nature of her insurance the copy on humira is too expensive Presence of Pain: denies pain/discomfort. Total time spent in this encounter was 33 minutes. Joint pain is just R knee. All questions answered for the patient and . Patient is here today for her 4 Month Follow-up. Patient states she did not start the Humira due to expensive copay. Patient states she is having pain in right knee. I have been told that patient is on a high risk medication as it either treats cancer or requires blood work every 2-3 months. I have been told that Prednisone is a high risk medication. Patient did not get lab as instructed. Objective Review of Systems Constitutional: Negative. HENT: Negative. Eyes: Negative. Respiratory: Negative. Cardiovascular: Negative. Gastrointestinal: Negative. Endocrine: Negative. Genitourinary: Negative. Musculoskeletal: Positive for arthralgias and gait problem. Skin: Negative. Allergic/Immunologic: Negative. Hematological: Negative. Psychiatric/Behavioral: Negative. Vitals: Blood pressure 122/68, pulse 71, temperature 97 F (36.1 C), height 1.626 m (5' 4 ), weight 58.1 kg (128 lb), SpO2 95%. Physical Exam Vitals and nursing note reviewed. Constitutional: Appearance: Normal appearance. HENT: Head: Normocephalic and atraumatic. Right Ear: External ear normal. Left Ear: External ear normal. Nose: Nose normal. Mouth/Throat: Mouth: Mucous membranes are moist. Pharynx: Oropharynx is clear. Comments: Poor dentition Eyes: Extraocular Movements: Extraocular movements intact. Conjunctiva/sclera: Conjunctivae normal. Pupils: Pupils are equal, round, and reactive to light. Comments: Glasses OS exopthalmic Cardiovascular: Rate and Rhythm: Normal rate and regular rhythm. Pulses: Radial pulses are 2+ on the right side and 2+ on the left side. Heart sounds: Normal heart sounds. Pulmonary: Effort: Pulmonary effort is normal. Breath sounds: Normal breath sounds. Abdominal: General: Bowel sounds are normal. Palpations: Abdomen is soft. Musculoskeletal: Right shoulder: Decreased range of motion. Left shoulder: Tenderness present. Decreased range of motion. Right upper arm: Normal. Left upper arm: Normal. Right elbow: Decreased range of motion. Left elbow: Decreased range of motion. Right forearm: Normal. Left forearm: Normal. Right wrist: Decreased range of motion. Left wrist: Decreased range of motion. Right hand: Deformity present. Decreased range of motion. Decreased strength. Left hand: Deformity present. Decreased range of motion. Decreased strength. Cervical back: Neck supple. Right upper leg: Normal. Left upper leg: Normal. Right knee: Decreased range of motion. Left knee: Deformity present. Decreased range of motion. Tenderness present. Right lower leg: Normal. Left lower leg: Normal. Right ankle: Decreased range of motion. Left ankle: Decreased range of motion. Skin: General: Skin is warm and dry. Neurological: Mental Status: She is alert and oriented to person, place, and time. Cranial Nerves: Cranial nerves 2-12 are intact. Motor: Weakness present. Gait: Gait abnormal. Comments: Decreased excel specialist strength both hands and walker. Psychiatric: Mood and Affect: Mood normal. Behavior: Behavior normal. Thought Content: Thought content normal. Judgment: Judgment normal. Neurological Exam Mental Status Alert. Oriented to person, place, and time. Cranial Nerves CN II: Vision test: Glasses OS exopthalmic. CN III, IV, : Extraocular movements intact bilaterally. Pupils equal round and reactive to light bilaterally. Gait Abnormal gait. Decreased excel specialist strength both hands and walker. . Assessment and Plan Encounter Diagnoses Name Primary? Rheumatoid arthritis involving multiple sites with positive rheumatoid factor Yes Rheumatoid factor positive 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, shelter, current use Long-term use of high-risk medication Infliximab (Remicade) long-term use 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 H/O total shoulder replacement, right CRP elevated Abnormal ANCA test Primary osteoarthritis of both wrists Primary osteoarthritis of both hands Osteoarthritis of carpometacarpal (CMC) joint of both thumbs 1. Time was spent with the patient today in education in re: to all their medical conditions. A complete H&P&ROS was obtained and is either in this note or in the EHR. Please do not hesitate to contact me with any questions or concerns re: this patient. Past History Past medical, surgical, family, and social histories have been reviewed and updated with the patient today and are located elsewhere in the medical record. 2. Thank you for allowing me to participate in the care of your patient. With your permission I would like to F/U with your patient. 3. Hold Methtorexate week before, week during and, week after any surgery. Hold 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 any time have an infection can restart once off of ATB and/or antiviral and free of infection. Hold 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 week before, week during and, week after any live attenuated vaccine (shingles). Monitor CBC/LFT/Renal func every 2-3 months on 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. Hold 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 anytime there is an open wound and can restart once wound has healed 4. Due to the greed and despicable nature of her insurance the copy on humira is too expensive 5. Hgb was low at 11.5 and is now normal at 13.1 6. Glucose was elevated at 322 7. Negative ASMA, Hep A&B&C serology, SPEP/SIF, cANCA, pANCA, MPO, PR3, Celiac, CCP, AMA, SHAILA, Fungitell Assay, Procalcitonin, 8. Atypical pANCA was elevated at 1:160 9. Alk phos was elevated at 179 10. care home side effect of steroids gone over with the patient and 11. Sodium was low at 130 12. CRP was elevated at 7.51 and still is at 13.6 13. ESR was elevated at 47 and still is at 59 14. Rheumatoid factor was elevated at 92 and then again at 18.0 15. Would monitor CBC/LFT/renal function every 6-12 months as long as Atypical p ANCA is elevated 16. Uric acid was normal at 4.0 17. Globulin was elevated at 4.6 18. TSH was elevated at 19.3 and patient is going to Follow-up with PCP 19. Rx given for Renflexis 20. TB test was negative 21. Hold Remicade and Renflexis month before and month after any surgery. Hold Remicade and Renflexis anytime have an infection can restart once off of ATB and/or antiviral and free of infection. Hold Remicade and Renflexis month before and month after live attenuated vaccines (shingles). Hold Remicade and Renflexis if open wound and can restart once wound has healed. 22. X-ray of R knee shows OA per patient 23. Vit d under care of PCP per patient. 24. Follow-up with me in 4 months 25. Rx given for PT/OT: went good and patient is doing HEP 26. 90 day supply on medication 27. Erosions both hands 28. Lab on or about 09/16/2023 and every 2 months thereafter documented in this encounter [facility] 04-28-2023 History of Presen t illness Narrative Subjective History of Present Illness Humira has not been tried. Presence of Pain: denies pain/discomfort. Total time spent in this encounter was 28 minutes. All questions answered for the patient and . Energy level is good. Joint pain is L knee. Patient is here for 3 week Follow-up. Patient states that her swelling on the knee went down quite a bit and states that she is feeling a little better since last visit. States that the increase in 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 has made a big difference. I have been told that patient is on a high risk medication as it either treats cancer or requires blood work every 2-3 months. I have been told that prednisone is a high risk medication. Objective Review of Systems Constitutional: Negative. HENT: Negative. Eyes: Negative. Respiratory: Negative. Cardiovascular: Negative. Gastrointestinal: Negative. Endocrine: Negative. Genitourinary: Negative. Musculoskeletal: Positive for arthralgias and gait problem. Skin: Negative. Allergic/Immunologic: Negative. Hematological: Negative. Psychiatric/Behavioral: Negative. Vitals: Blood pressure 134/84, pulse 85, temperature 97.7 F (36.5 C), temperature source Temporal, height 1.626 m (5' 4 ), weight 58.1 kg (128 lb 1.4 oz), SpO2 95 %. Physical Exam Vitals and nursing note reviewed. HENT: Head: Normocephalic and atraumatic. Right Ear: External ear normal. Left Ear: External ear normal. Nose: Nose normal. Mouth/Throat: Mouth: Mucous membranes are moist. Pharynx: Oropharynx is clear. Comments: Poor dentition Eyes: Extraocular Movements: Extraocular movements intact. Conjunctiva/sclera: Conjunctivae normal. Pupils: Pupils are equal, round, and reactive to light. Comments: Glasses OS exopthalmic Cardiovascular: Rate and Rhythm: Normal rate and regular rhythm. Pulses: Radial pulses are 2+ on the right side and 2+ on the left side. Heart sounds: Normal heart sounds. Pulmonary: Effort: Pulmonary effort is normal. Breath sounds: Normal breath sounds. Abdominal: General: Bowel sounds are normal. Palpations: Abdomen is soft. Musculoskeletal: Right shoulder: Decreased range of motion. Left shoulder: Decreased range of motion. Right upper arm: Normal. Left upper arm: Normal. Right elbow: Decreased range of motion. Left elbow: Decreased range of motion. Right forearm: Normal. Left forearm: Normal. Right wrist: Swelling present. Decreased range of motion. Left wrist: Swelling present. Decreased range of motion. Right hand: Deformity present. Decreased range of motion. Decreased strength. Left hand: Deformity present. Decreased range of motion. Decreased strength. Cervical back: Neck supple. Right upper leg: Normal. Left upper leg: Normal. Right knee: Decreased range of motion. Left knee: Swelling and effusion present. Decreased range of motion. Tenderness present. Right lower leg: Normal. Left lower leg: Normal. Right ankle: Decreased range of motion. Left ankle: Decreased range of motion. Skin: General: Skin is warm and dry. Neurological: Mental Status: She is alert and oriented to person, place, and time. Cranial Nerves: Cranial nerves 2-12 are intact. Motor: Weakness present. Gait: Gait abnormal. Comments: Decreased excel specialist strength both hands and walker. Psychiatric: Mood and Affect: Mood normal. Behavior: Behavior normal. Thought Content: Thought content normal. Judgment: Judgment normal. Neurological Exam Mental Status Alert. Oriented to person, place, and time. Cranial Nerves CN II: Vision test: Glasses OS exopthalmic. CN III, IV, : Extraocular movements intact bilaterally. Pupils equal round and reactive to light bilaterally. Gait Abnormal gait. Decreased excel specialist strength both hands and walker. . Left Knee Exam Other Effusion: effusion present Assessment and Plan Encounter Diagnoses Name Primary? Rheumatoid arthritis involving multiple sites with positive rheumatoid factor Yes Abnormal ANCA test Adalimumab (Humira) long-term use Alkaline phosphatase elevation CRP elevated Elevated TSH 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 care home current use of systemic steroids Long-term use of high-risk medication 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, shelter, current use Rheumatoid factor positive Vitamin D deficiency Hypothyroidism, unspecified type Osteoarthritis of carpometacarpal (CMC) joint of both thumbs Primary osteoarthritis of both hands Primary osteoarthritis of both wrists Normochromic normocytic anemia 1. Time was spent with the patient today in education in re: to all their medical conditions. A complete H&P&ROS was obtained and is either in this note or in the EHR. Please do not hesitate to contact me with any questions or concerns re: this patient. Past History Past medical, surgical, family, and social histories have been reviewed and updated with the patient today and are located elsewhere in the medical record. 2. Thank you for allowing me to participate in the care of your patient. With your permission I would like to F/U with your patient. 3. Hold Methtorexate week before, week during and, week after any surgery. Hold 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 any time have an infection can restart once off of ATB and/or antiviral and free of infection. Hold 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 week before, week during and, week after any live attenuated vaccine (shingles). Monitor CBC/LFT/Renal func every 2-3 months on 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. Hold 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 anytime there is an open wound and can restart once wound has healed 4. Rx given for Humira: again. 5. Hgb was low at 11.5 6. Glucose was elevated at 367 and still is at 322 7. Negative ASMA, Hep A&B&C serology, SPEP/SIF, cANCA, pANCA, MPO, PR3, Celiac, CCP, AMA, SHAILA, Fungitell Assay, Procalcitonin, 8. Atypical pANCA is elevated at 1:160 9. Alk phos was elevated at 166 and still is at 179 10. Albumin was low at 3.1 and is now normal at 3.2 11. Sodium was low at 134 and still is at 130 12. CRP was elevated at 27.00 and still is at 7.51 13. ESR was elevated at 74 and still is at 47 14. Rheumatoid factor was elevated at 92 and still is at 18.0 15. Would monitor CBC/LFT/renal function every 6-12 months as long as Atypical p ANCA is elevated 16. Urica acid is normal at 4.0 17. Globulin is elevated at 4.6 18. TSH is elevated at 19.3 and patient is going to Follow-up with PCP 19. Low 25 hydroxy Vit d level at 20.0 with normal 1,25 dihydroxy vit D level and patient is going to Follow-up with PCP 20. TB test is negative 21. Hold Humira 2 weeks before and 2 weeks after any surgery or live vaccine (shingles). Hold Humira anytime have an infection can restart once of off ATB and/or antiviral and free of infection. Hold Humira if open wound can restart once wound has healed. 22. X-ray of R knee shows OA per patient 23. Vit d under care of PCP per patient. 24. If wrist and hand and knee problems continue rec: ortho eval 25. Rx given for PT/OT: 26. 90 day supply on medication 27. Erosions both hands 28. Lab on or about 05/02/2023 and every 2 months thereafter 29. Follow-up with me in 4 months documented in this encounter [facility] 12-04-2022 History of Presen t illness Narrative History of Present Illness Presence of Pain: denies pain/discomfort. Total time spent in this encounter was 50 minutes. All questions answered for the patient and . Patient is being evaluated for an unstable chronic illness that increase morbidity and mortality. Due to patient's coexisting health problems and co-morbidities treatment is and will be very difficult. Patient was referred by Dr. Bravo for RA. Patient states that left knee is swollen and has been for awhile. Pain in left knee. States that hands are swelling has gone down but still puffy. States that medication she is taking once a week seems to be helping. DX with RA 11/2021. 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 started 05/2022. Never higher than 8 pills. Patient is getting blood work every 3-6 months. Review of Systems Constitutional: Positive for fatigue. Musculoskeletal: Positive for gait problem. Vitals: Blood pressure 112/74, temperature 97.9 F (36.6 C), temperature source Temporal, height 1.626 m (5' 4 ), weight 58.1 kg (128 lb). Physical Exam Vitals and nursing note reviewed. HENT: Head: Normocephalic and atraumatic. Right Ear: External ear normal. Left Ear: External ear normal. Nose: Nose normal. Mouth/Throat: Mouth: Mucous membranes are moist. Pharynx: Oropharynx is clear. Comments: Poor dentition Eyes: Extraocular Movements: Extraocular movements intact. Conjunctiva/sclera: Conjunctivae normal. Pupils: Pupils are equal, round, and reactive to light. Comments: Glasses OS exopthalmic Cardiovascular: Rate and Rhythm: Normal rate and regular rhythm. Pulses: Carotid pulses are 2+ on the right side and 2+ on the left side. Radial pulses are 2+ on the right side and 2+ on the left side. Heart sounds: Normal heart sounds. Comments: No carotid or subclavian bruits. Did not take of shows for exam. Pulmonary: Effort: Pulmonary effort is normal. Breath sounds: Normal breath sounds. Abdominal: General: Bowel sounds are normal. Palpations: Abdomen is soft. Musculoskeletal: Right shoulder: Decreased range of motion. Left shoulder: Decreased range of motion. Right upper arm: Normal. Left upper arm: Normal. Right elbow: Decreased range of motion. Left elbow: Decreased range of motion. Right forearm: Normal. Left forearm: Normal. Right wrist: Swelling present. Decreased range of motion. Left wrist: Swelling present. Decreased range of motion. Right hand: Deformity present. Decreased range of motion. Decreased strength. Left hand: Deformity present. Decreased range of motion. Decreased strength. Cervical back: Neck supple. Decreased range of motion. Thoracic back: Normal. Lumbar back: Decreased range of motion. Right hip: Decreased range of motion. Left hip: Decreased range of motion. Right upper leg: Normal. Left upper leg: Normal. Right knee: Decreased range of motion. Left knee: Swelling and effusion present. Decreased range of motion. Tenderness present. Right lower leg: Normal. Left lower leg: Normal. Right ankle: Decreased range of motion. Left ankle: Decreased range of motion. Skin: General: Skin is warm and dry. Neurological: Mental Status: She is alert and oriented to person, place, and time. Cranial Nerves: Cranial nerves 2-12 are intact. Motor: Weakness present. Gait: Gait abnormal. Comments: Decreased excel specialist strength both hands and wheel chair. Psychiatric: Mood and Affect: Mood normal. Behavior: Behavior normal. Thought Content: Thought content normal. Judgment: Judgment normal. Neurological Exam Mental Status Alert. Oriented to person, place, and time. Cranial Nerves CN II: Vision test: Glasses OS exopthalmic. CN III, IV, : Extraocular movements intact bilaterally. Pupils equal round and reactive to light bilaterally. Gait Abnormal gait. Decreased excel specialist strength both hands and wheel chair. . Left Knee Exam Other Effusion: effusion present Assessment and Plan Encounter Diagnoses Name Primary? 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 Time was spent with the patient today in education in re: to all their medical conditions. A complete H&P&ROS was obtained and is either in this note or in the EHR. Please do not hesitate to contact me with any questions or concerns re: this patient. Past History Past medical, surgical, family, and social histories have been reviewed and updated with the patient today and are located elsewhere in the medical record. 2. Thank you for allowing me to participate in the care of your patient. With your permission I would like to F/U with your patient. 3. Hold Methtorexate week before, week during and, week after any surgery. Hold 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 any time have an infection can restart once off of ATB and/or antiviral and free of infection. Hold 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 week before, week during and, week after any live attenuated vaccine (shingles). Monitor CBC/LFT/Renal func every 2-3 months on 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. Hold 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 anytime there is an open wound and can restart once wound has healed 4. Patient was given educational material on RA. Different treatment options were discussed with the patient today. Patient should get the Shingrix vaccine if not already done 5. Hgb is low at 11.5 6. Glucose is elevated at 367 and patient is going to F/U with PCP 7. Differenetial Diagnosis includes but is not limited to Autoimmune Disease, Connective Tissue Disease, Collagen Vascular Disorder, Infection, and Neoplasm. 8. Lab and x-ray and F/U with me in 3 weeks 9. Alk phos is elevated at 166 10. Albumin is low at 3.1 11. Sodium is low at 134 12. CRP is elevated at 27.00 13. ESR is elevated at 74 14. Rheumatoid factor is elevated at 92 15. Rx given for 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 8 pills one day a week 16. Rx given for Leucovorin 5 mg 1 pill one day a week 17. Rx given for folic acid 1 mg 1 pill a day 18. Rx given for Humira 19. Humira assistance 20. TB test today 21. Hold Humira 2 weeks before and 2 weeks after any surgery or live vaccine (shingles). Hold Humira anytime have an infection can restart once of off ATB and/or antiviral and free of infection. Hold Humira if open wound can restart once wound has healed. 22. X-ray of R knee shows OA per patient 23. Patient given educational material on OA in the from of a pamphlet from the arthritis foundation. Patient told that PT and keeping ideal body wt would be the cornerstone of treatment 24. If wrist and hand and knee problems continue rec: ortho eval 25. Rx given for PT/OT 26. 90 day supply on medication documented in this encounter 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 Encounter for long-term (current) use of other medications Rheumatoid factor positive Other and unspecified nonspecific immunological findings Primary hypertension Unspecified essential hypertension Hypoalbuminemia Other disorders of plasma protein metabolism Hyponatremia Hyposmolality and/or hyponatremia Hypothyroidism, unspecified type Type 1 diabetes mellitus with hyperglycemia Type I (juvenile type) diabetes mellitus without mention of complication, not stated as uncontrolled Pain and swelling of left knee Bilateral hand pain Pain in limb Bilateral wrist pain Disorder of bone and cartilage Disorder of bone and cartilage, unspecified Primary osteoarthritis of both hands Normochromic normocytic anemia Anemia, unspecified Encounter for screening for other viral diseases [facility] Rheumatoid arthritis involving multiple sites with positive rheumatoid factor- Primary Abnormal ANCA test Other and unspecified nonspecific immunological findings Adalimumab (Humira) long-term use Alkaline phosphatase elevation Other nonspecific abnormal serum enzyme levels CRP elevated Elevated C-reactive protein (CRP) Elevated TSH Other abnormal blood chemistry 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 Personal history of arthritis 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 Other specified diseases of blood and blood-forming organs care home current use of systemic steroids Encounter for long-term (current) use of steroids Long-term use of high-risk medication 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, 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, 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 Encounter for long-term (current) use of other medications Rheumatoid factor positive Other and unspecified nonspecific immunological findings Vitamin D deficiency Unspecified vitamin D deficiency Hypothyroidism, unspecified type Osteoarthritis of carpometacarpal (CMC) joint of both thumbs Primary osteoarthritis of both hands Primary osteoarthritis of both wrists Normochromic normocytic anemia Anemia, unspecified [facility] Rheumatoid arthritis involving multiple sites with positive rheumatoid factor- Primary Rheumatoid factor positive Other and unspecified nonspecific immunological findings 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, 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, 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 Encounter for long-term (current) use of other medications Long-term use of high-risk medication Infliximab (Remicade) long-term use 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 Personal history of arthritis H/O total shoulder replacement, right CRP elevated Elevated C-reactive protein (CRP) Abnormal ANCA test Other and unspecified nonspecific immunological findings Primary osteoarthritis of both wrists Primary osteoarthritis of both hands Osteoarthritis of carpometacarpal (CMC) joint of both thumbs [facility] Diagnosis Rheumatoid arthritis involving multiple sites with positive rheumatoid factor- 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 Rheumatoid arthritis involving multiple sites with positive rheumatoid factor- Primary [facility] Diagnosis Rheumatoid arthritis involving multiple sites with positive rheumatoid factor- Primary [facility] Diagnosis Rheumatoid arthritis involving multiple sites with positive rheumatoid factor- [facility] Consultation (Routine) - New Request Specialty Diagnoses / Procedures Referred By Antoinette ma Referred To Contact Chemotherapy Diagnoses Rheumatoid arthritis involving multiple sites with positive rheumatoid factor Rheumatoid factor positive 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, shelter, current use Long-term use of high-risk medication Infliximab (Remicade) long-term use 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 H/O total shoulder replacement, right CRP elevated Abnormal ANCA test Primary osteoarthritis of both wrists Primary osteoarthritis of both hands Osteoarthritis of carpometacarpal (CMC) joint of both thumbs Sidney Rose Jr., DO [address] [place] [id number] [address] Referral ID Status Reason Start Date Expiration Date V isits Requested Visits Authorized [id number] New Request 09/12/2023 10/06/[address] [facility] Summary Purpose Family History No Family History Records FoundNo Family History Records FoundNo Family History Records FoundNo Family History Records FoundNo Family History Records Found Advance Directives No Advanced Directives Records FoundNo Advanced Directives Records FoundNo Advanced Directives Records FoundNo Advanced Directives Records FoundNo Advanced Directives Records Found Reason for Referral Specialty Diagnoses / Procedures Referred By Antoinette ma Referred To Contact Occupational Therapy Diagnoses Rheumatoid arthritis involving multiple sites with positive rheumatoid factor Adalimumab (Humira) long-term use Alkaline phosphatase elevation CRP elevated Fatigue, unspecified type 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 Long-term use of high-risk medication 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 Rheumatoid factor positive Primary hypertension Hypoalbuminemia Hyponatremia Hypothyroidism, unspecified type Type 1 diabetes mellitus with hyperglycemia Pain and swelling of left knee Bilateral hand pain Bilateral wrist pain Disorder of bone and cartilage Primary osteoarthritis of both hands Normochromic normocytic anemia Sidney Rose Jr., DO [address] [place] [address] Referral ID Status Reason Start Date Expiration Date V isits Requested Visits Authorized [id number] New Request 12/04/2022 12/29/2023 1 1 Specialty Diagnoses / Procedures Referred By Antoinette ma Referred To Contact Diagnoses Rheumatoid arthritis involving multiple sites with positive rheumatoid factor Abnormal ANCA test CRP elevated H/O total shoulder replacement, right 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 care home current use of systemic steroids Long-term use of high-risk medication 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, shelter, current use Rheumatoid factor positive Visit for monitoring Actemra therapy Osteoarthritis of carpometacarpal (CMC) joint of both thumbs Primary osteoarthritis of both hands Primary osteoarthritis of both wrists Sidney Rose Jr., DO [address] [place] [address] Referral ID Status Reason Start Date Expiration Date V isits Requested Visits Authorized [id number] Pending Review 1 1 Specialty Diagnoses / Procedures Referred By Antoinette ma Referred To Contact Chemotherapy Diagnoses Rheumatoid arthritis involving multiple sites with positive rheumatoid factor Abnormal ANCA test CRP elevated H/O total shoulder replacement, right 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 care home current use of systemic steroids Long-term use of high-risk medication 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, 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, 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 Rheumatoid factor positive Visit for monitoring Actemra therapy Osteoarthritis of carpometacarpal (CMC) joint of both thumbs Primary osteoarthritis of both hands Primary osteoarthritis of both wrists Sidney Rose Jr., [address] [place] [address] [facility] [address] [place], [place] [id number] Referral ID Status Reason Start Date Expiration Date V isits Requested Visits Authorized [id number] Authorized 01/16/2024 02/09/2025 1 1 Additional Source Comments INFORMATION SOURCE (unrecogn ized section and content) DATE CREATED AUTHOR 04/12/2022 [facility] DATE CREATED AUTHOR AUTHOR'S ORGANIZ ATION 06/11/2022 [facility] DATE CREATED AUTHOR AUTHOR'S ORGANIZ ATION 01/18/2024 [facility] DATE CREATED AUTHOR AUTHOR'S ORGANIZ ATION 01/21/2024 [facility] DATE CREATED AUTHOR AUTHOR'S ORGANIZ ATION 03/29/2024 [facility] Reason for Visit (unrecogniz ed section and content) Reason Comments Infusion Visit Actemra IV Specialty Diagnoses / Procedures Referred By Antoinette ma Referred To Contact Diagnoses Rheumatoid arthritis involving multiple sites with positive rheumatoid factor Sidney Rose Jr., DO [address] [place] [address] Referral ID Status Reason Start Date Expiration Date V isits Requested Visits Authorized [id number] New Request 01/16/2024 02/09/2025 1 1 Reason Comments New Patient Patient was referred by Dr. Bravo for RA. Patient states that left knee is swollen and has been for awhile. Pain in left knee. States that hands are swelling has gone down but still puffy. States that medication she is taking once a week seems to be helping. Reason Comments Follow-up Patient is here for 3 week Follow-up. Patient states that her swelling on the knee went down quite a bit and states that she is feeling a little better since last visit. States that the increase in 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 has made a big difference. Reason Comments Follow-up Patient is here toda y for her 4 Month Follow-up. Patient states she did not start the Humira due to expensive copay. Patient states she is having pain in right knee. Reason Comments Infusion Visit Referral ID Status Reason Start Date Expiration Date V isits Requested Visits Authorized [id number] New Request 09/12/2023 10/06/2024 1 1 Reason Comments Follow-up Patient is here toda y for her 4 Month Follow-up. Patient states she had one infusion then stopped because it caused dizziness and she did not feel good. Patient states she is not having joint pain. Reason Comments Infusion Visit Actemra Care Teams (unrecognized sec tion and content) Stock Room Manager Relationship Specialty Start Date End Date Tavares BravoDO [address] [place] [address] PCP - General Family Medicine 12/04/22 Stock Room Manager Relationship Specialty Start Date End Date LawrenceTavares schroederDO [address] [place] [address] PCP - General Family Medicine 12/04/22 Stock Room Manager Relationship Specialty Start Date End Date LawrenceTavares hutchisonDO [address] [place] [phone] PCP - General Family Medicine 12/04/22 Stock Room Manager Relationship Specialty Start Date End Date Tavares Bravo DO [address] [place] [phone] PCP - General Family Medicine 12/04/22 Stock Room Manager Relationship Specialty Start Date End Date Tavares Bravo DO [address] [place] [address] PCP - General Family Medicine 12/04/22 Stock Room Manager Relationship Specialty Start Date End Date Tavares Bravo DO [address] [place] [address] PCP - General Family Medicine 12/04/22 Stock Room Manager Relationship Specialty Start Date End Date Tavares Bravo DO [address] [place] [address] PCP - General Family Medicine 12/04/22 FOR RECORDS PERTAINING TO PATIENTS WHO ARE OR HAVE BEEN ENROLLED IN A CHEMICAL DEPENDENCY/SUBSTANCEABUSE PROGRAM, SOME INFORMATION MAY BE OMITTED. This clinical summary was aggregated from multiple sources. Caution should be exercised in using it in the provision of clinical care. This summary normalizes information from multiple sources, and as a consequence, information in this document may materially change the coding, format and clinical context of patient data. In addition, data may be omitted in some cases. CLINICAL DECISIONS SHOULD BE BASED ON THE PRIMARY CLINICAL RECORDS. [facility] [employer] provides no warranty or guarantee of the accuracy or completeness of information in this document.
[2024-04-12 19:58] LABS: Troponin-I HS 32 pg/mL (3.0-54.0)
[2024-04-12] MEDS: Enoxaparin 60 MG/0.6 ML Syringe SC (23:20)
[2024-04-12] MEDS: Insulin Glargine-YFGN 100 UNIT/ML Pen 16 UNIT SC (23:22)
[2024-04-12] MEDS: Insulin Lispro 100 UNIT/ML INSULN.PEN SC (23:29)
[2024-04-12] MEDS: Acetaminophen 500 MG Tablet 1000 MG PO (23:30)
[2024-04-13 01:06] LABS: Bedside Glucose 159 mg/dL (74-106)
[2024-04-13 03:07] LABS: Bedside Glucose 63 mg/dL (74-106)
[2024-04-13 03:40] VITALS: BP 94/52; PULSE 68; RESP 16; TEMP 36.3; O2SAT 99
[2024-04-13 04:09] LABS: Bedside Glucose 78 mg/dL (74-106)
[2024-04-13 05:29] LABS: Absolute Lymphocyte Count 2.32 X10^3/uL (0.83-4.51); Absolute Neutrophil Count 6.9 X10^3/uL (2.0-7.7); Basophil# 0.13 X10^3/uL; Basophil% 1.3 % (0-1); Eosinophil# 0.33 X10^3/uL; Eosinophils% 3.2 % (0-5); Hematocrit 33.3 % (37-47); Lymphocyte # 2.32 X10^3/ul (0.83-4.51); Lymphocyte % 22.3 % (19-41); Mean Corpuscular Hgb 28.9 pg (27.0-32.0); Mean Corpuscular Volume 87.4 fL (81-99); Mean Platelet Vol. 12.4 fl (6.2-12.0); Monocyte# 0.65 X10^3/uL; Monocyte% 6.3 % (0-10); NRBC Flagged by Analyzer 0 % (0-5); Neutrophil # 6.93 X10^3/uL (2.7-7.7); Neutrophil % 66.6 % (47-70); Platelet Count 220 K/mm3 (150-450); RBC Distribution Width CV 15.9 % (11.6-14.6); RBC Distribution Width SD 50.3 fl (35.1-43.9); Red Blood Count 3.81 M/mm3 (4.2-5.4); White Blood Count 10.4 K/mm3 (4.4-11.0)
--- NOTE | 2024-04-13 05:55 | ECHOCS_ITS ---
Reason For Study: Afib/Flutter Procedure This was a 2D Doppler, Color Flow transthoracic echocardiogram. Contrast injection was performed. Exam performed portable in patient room. Left Ventricle Normal LV size. The left ventricular ejection fraction is 65 %. No regional wall motion abnormalities noted. Right Ventricle Normal RV size. Normal systolic function. Atria Normal left atrium. Normal right atrium. Mitral Valve Mild focal mitral valve calcification of the anterior leaflet. Tricuspid Valve Normal tricuspid valve. Aortic Valve Trisinus/trileaflet aortic valve. Mild focal aortic valve calcification. Pulmonic Valve Normal pulmonic valve. Great Vessels Normal aortic root. The pulmonary artery is normal size. Normal inferior vena cava. Pericardium/Pleural No pericardial effusion. Medication Diluted definity 1ml given slow IV push to enhance endocardial definition. MMode/2D Measurements & Calculations LVIDd: 4.5 cm IVSd: 1.2 cm Ao root diam: 3.3 cm LVIDs: 2.8 cm LVPWd: 0.86 cm FS: 37.4 % LAV(MOD-bp): 60.5 ml LVAd ap4: 25.8 cm2 SV(MOD-sp4): 51.1 ml LAV(MOD-bp) Indexed: 38.3 ml/m2 LVLd ap4: 7.0 cm SI(MOD-sp4): 32.3 ml/m2 LAV(MOD-sp2): 64.9 ml EDV(MOD-sp4): 77.2 ml LAV(MOD-sp4): 53.5 ml EDV(sp4-el): 80.9 ml LVAs ap4: 13.1 cm2 LVLs ap4: 5.5 cm ESV(MOD-sp4): 26.1 ml ESV(sp4-el): 26.7 ml EF(MOD-sp4): 66.2 % EF(sp4-el): 67.0 % SV(sp4-el): 54.2 ml LA A4 area: 19.0 cm2 LA dimension(2D): 3.6 cm RA A4 area: 14.0 cm2 TAPSE: 2.1 cm Time Measurements MV dec time: 0.19 sec Doppler Measurements & Calculations MV E max samson: 74.5 cm/sec Lat Peak E' Samson: 12.1 cm/sec Med Peak E' Samson: 7.1 cm/sec MV A max samson: 74.7 cm/sec E/E' lat: 6.2 E/E' med: 10.5 MV E/A: 1.00 MV V2 max: 81.6 cm/sec MV P1/2t max samson: 81.0 cm/sec Ao V2 max: 95.6 cm/sec MV max P.7 mmHg MV P1/2t: 63.1 msec Ao max P.7 mmHg MV V2 mean: 45.6 cm/sec MV dec slope: 375.9 cm/sec2 Ao V2 mean: 69.1 cm/sec MV mean P.0 mmHg MVA(P1/2t): 3.5 cm2 Ao mean P.1 mmHg MV V2 VTI: 20.7 cm Ao V2 VTI: 20.7 cm AV (velocity ratio): 0.78 LV V1 max: 69.9 cm/sec PA V2 max: 69.3 cm/sec LV V1 max P.0 mmHg LV V1 mean P.1 mmHg LV V1 mean: 48.0 cm/sec LV V1 VTI: 16.2 cm ECHO/Echo Complete W/ Contrast Interpretation Summary Normal LV size. No regional wall motion abnormalities noted. The left ventricular ejection fraction is 65 %. Mild focal aortic valve calcification. Contrast injection was performed. Ordering Physician: Eduardo Hicks Referring Physician: Eric Bravo Performed By: Kelvin De Luna RCS
[2024-04-13] MEDS: Levothyroxine 150 MCG Tablet PO (06:15)
[2024-04-13 06:16] LABS: Anion Gap 5 (5-15); BUN 17 mg/dL (7-18); Calcium,Total 9.1 mg/dL (8.5-10.1); Chloride 112 mmol/L (98-107); Creatinine, Serum 0.65 mg/dL (0.55-1.02); EST Glomerular Filtration Rate 95 mL/min (>60); Est Glom Filt Rate - Afr Amer 115 mL/min (>60); Glucose 116 mg/dL (74-106); Potassium 3.4 mmol/L (3.5-5.1); Sodium Level 141 mmol/L (136-145)
[2024-04-13 07:04] LABS: Bedside Glucose 123 mg/dL (74-106)
[2024-04-13 10:45] VITALS: BP 127/69; PULSE 72; RESP 16; TEMP 36.7; O2SAT 97
[2024-04-13] MEDS: Magnesium Chloride 64 MG Delay Rel.Tablet 128 MG PO (10:52)
[2024-04-13] MEDS: Losartan Potassium 25 MG Tablet PO (10:52)
[2024-04-13] MEDS: Enoxaparin 60 MG/0.6 ML Syringe SC (10:53)
[2024-04-13] MEDS: Insulin Glargine-YFGN 100 UNIT/ML Pen 16 UNIT SC (10:55)
[2024-04-13 10:59] VITALS: PULSE 72
[2024-04-13] MEDS: Metoprolol Tartrate 50 MG Tablet PO (10:59)
[2024-04-13] MEDS: Insulin Lispro 100 UNIT/ML INSULN.PEN SC (11:06)
[2024-04-13] MEDS: Insulin Lispro 100 UNIT/ML INSULN.PEN 15 UNIT SC (11:06)
--- NOTE | 2024-04-13 11:30 | CASEMGMT ---
RN CM Face to Face with patient for initial transition planning/care coordination assessment. RN CM introduced self and role at [facility]. Patient lying in bed, alert and oriented. Patient willing to participate in assessment and is able to answer all questions appropriately. Care providers, pharmacy, and demographics verified. Strata: 2 PCP: Lawrence Specialists: RA Cornelia Rose Preferred Pharmacy: [facility] Insurance: [facility], [place] Prescription Benefit: yes Living Will/HPOA: none LNOK: , son Living Arrangements: Patient lives with in a 3 story home with bed and bath on first floor. Patient is independent at home. Transportation: , son DME/HHC: [facility] has shower chair, grab bars, walker, and glucometer at home. No previous SNF. Patient has had [facility] in the past. Patient wishes to discharge home, denies need for home health at this time. Patient states he has no further needs or concerns at this time. CM to follow for discharge planning needs that may arise. Disposition Plan: Patient to discharge home with family support and follow-up plans in place. Elisha BORJA, RN, CM
[2024-04-13 11:33] LABS: Bedside Glucose 303 mg/dL (74-106)
--- NOTE | 2024-04-13 12:50 | DCINST_ITS ---
Discharge Instructions Diet Discharge Diet: 1800 Calorie Control Diet Activity Discharge Activity: Return to Normal Activity Weight Bearing Status: Full weight bearing Follow Up Care Test Results: Test results from this visit will be discussed in further detail at your follow- up appointment, if applicable. Discharge Plan Admission Admit Date/Time: 04/12/24 15:46 Primary Reason for Your Visit: New onset A-fib with RVR Attending Provider: Eric De Los Santos Primary Care Provider: Eric Bravo Consulting Providers: Eduardo Hicks Instructions Additional Instructions / Restrictions: Due to the fact you are taking Eliquis, you should not take ibuprofen, Aleve, or any other anti-inflammatory medications. You may take Tylenol or a narcotic for pain, this is permissible. Report any abnormal bleeding to your PCP, you may notice easier bruising which can happen while taking Eliquis. Discharge Orders/Prescriptions Prescriptions: New metoprolol tartrate 50 mg Tablet 50 mg PO BID Qty: 60 0RF Eliquis 5 mg tablet 5 mg PO BID Qty: 60 0RF Continued methotrexate sodium 2.5 mg tablet 12.5 mg PO QWEEK Patient Comments: TAKE 5 (FIVE) tablets BY MOUTH per week losartan 25 mg tablet 25 mg PO DAILY magnesium oxide 400 mg magnesium tablet 400 mg PO DAILY folic acid 1 mg tablet 1 mg PO DAILY insulin lispro [Humalog KwikPen Insulin] 100 unit/mL Insulin Pen See Protocol subcut ACHS Qty: 0 0RF Protocol: 3. Sliding Scale Insulin Med Dosing Condition: 150-189 mg/dl = 1 unit Condition: 190-229 mg/dl = 2 units Condition: 230-269 mg/dl = 3 units Condition: 270-309 mg/dl = 4 units Condition: 310-349 mg/dl = 5 units Condition: 350-399 mg/dl = 6 units Condition: 400-449 mg/dl = 7 units Condition: Greater than 449 call physician Protocol Text: - Use for Total Daily Dose of Insulin 37-55 units - Obsese, infected, or steroid patients MEDIUM DOSING ALGORITHIM insulin lispro [Humalog KwikPen Insulin] 100 unit/mL insulin pen 15 unit subcut TID Rx Instructions: Hold if glucose less than 130 mg/dl insulin glargine [Lantus Solostar U-100 Insulin] 100 unit/mL (3 mL) insulin pen 16 unit subcut BID alendronate 70 mg tablet 70 mg PO QWEEK Rx Instructions: Takes on Friday levothyroxine 150 mcg tablet 150 mcg PO DAILY acetaminophen 500 mg Tablet 1,000 mg PO Q8 PRN (Reason: fever or pain 1-10) Discontinued metoprolol tartrate 25 mg Tablet 25 mg PO BID 30 Days Qty: 60 0RF Referrals / Follow Up: Eric Bravo DO [Primary Care Provider] - Within 2 Weeks Disposition Disposition (needs filled in before D/C Order can be placed): Home, Self Care
--- NOTE | 2024-04-13 12:55 | PCM.DC.SUM ---
Providers Date of Admission: 04/12/24 Date of Discharge: 04/13/24 Primary Care Physician: Dr. Eric Bravo DO Reason For Visit: AFIB WITH RVR Diagnosis Discharge Diagnosis (1) Atrial fibrillation with RVR: Status: Acute Code(s): I48.91 - Unspecified atrial fibrillation Plan 1. New onset atrial fibrillation with RVR-converted to sinus rhythm #2 type 2 diabetes #3 hypothyroidism Medications at Discharge Home Medications losartan 25 mg tablet 25 mg PO DAILY BLOOD PRESSURE 03/15/22 magnesium oxide 400 mg PO DAILY SUPPLEMENT 03/15/22 methotrexate sodium 2.5 mg tablet 12.5 mg PO QWEEK inflammation 03/15/22 folic acid 1 mg tablet 1 mg PO DAILY 10/08/23 insulin lispro 100 unit/mL subcutaneous pen (Humalog KwikPen (U-100) Insulin) See Protocol subcut ACHS #0 mL 10/13/23 acetaminophen 500 mg tablet 1,000 mg PO Q8 PRN fever or pain 1-10 04/12/24 alendronate 70 mg tablet 70 mg PO QWEEK bone health 04/12/24 insulin glargine 100 unit/mL (3 mL) subcutaneous pen (Lantus Solostar U-100 Insulin) 16 unit subcut BID 04/12/24 insulin lispro 100 unit/mL subcutaneous pen (Humalog KwikPen (U-100) Insulin) 15 unit subcut TID 04/12/24 levothyroxine 150 mcg tablet 150 mcg PO DAILY 04/12/24 apixaban 5 mg tablet (Eliquis) 5 mg PO BID #60 tabs 04/13/24 metoprolol tartrate 50 mg tablet 50 mg PO BID #60 tabs 04/13/24 Hospital Course Operations None Procedures 2-D Echocardiogram Summary of Care Provided Minutes Spent on Discharge: 31 Hospital Course: This 73-year-old white female was seen in the emergency room at [facility] with complaints of palpitation which occurred while she was watching TV, EMS was called, noted an irregular rhythm, and administered adenosine without resolution of the irregular heart rhythm. She was seen in the emergency room and noted to be in atrial fibs with RVR, a Cardizem bolus was given and she was placed on a Cardizem drip. Patient subsequently converted to normal sinus rhythm, echocardiogram was obtained which showed a normal ejection fraction and no significant valvular heart disease. Patient was placed on a beta-carroll and given anticoagulation. On 04/13/2024, patient was seen and examined: On examination she appeared in good health and spirits, she does not appear to be in any distress. Vital signs as documented. Skin warm and dry and without overt rashes. Neck without JVD, thyroid appears normal, trachea is midline, neck is supple. Lungs clear, normal air movement was noted. Heart exam notable for regular rhythm, normal sounds and absence of murmurs, rubs or gallops. Abdomen unremarkable and without evidence of organomegaly, masses, or abdominal aortic enlargement, bowel sounds are present in all 4 quadrants, no abdominal tenderness was noted. Extremities nonedematous, no cyanosis was noted, no clubbing was noted. Neuro: Cranial nerves II through XII are grossly intact, no focal motor deficits were noted, sensation to light touch and pinprick is intact, motor exam 5/5 throughout. Psych: Patient is alert and oriented x3, she does not appear anxious or depressed, she does not appear agitated. Patient was discharged home in stable condition on 04/13/2024 Weight / BMI Weight Weight: 55.1 kg Body Mass Index (BMI) 20.8 ABG / Lab / Microbiology Data 04/13/24 05:08 04/13/24 05:08 Laboratory: Laboratory Results - last 24 hr 04/12/24 13:35: WBC 8.3, RBC 4.67, Hgb 13.0, Hct 40.1, MCV 85.9, MCH 27.8, MCHC 32.4, RDW Std Deviation 48.3 H, RDW Coeff of Mateus 15.6 H, Plt Count 225, MPV 12.4 H, Immature Gran % (Auto) 0.400, Neut % (Auto) 57.2, Lymph % (Auto) 31.6, [place] % (Auto) 5.8, Eos % (Auto) 3.8, Baso % (Auto) 1.2 H, Absolute Neuts (auto) 4.8, Absolute Lymphs (auto) 2.63, Nucleated RBC % 0, PT 12.5, INR 0.9, APTT 28.2, Sodium 141, Potassium 3.6, Chloride 107, Carbon Dioxide 27.0, Anion Gap 8, BUN 17, Creatinine 0.64, Estim Creat Clear Calc 55.70, Est GFR (MDRD) Af Amer 117, Est GFR (MDRD) Non-Af 97, BUN/Creatinine Ratio 26.4 H, Glucose 100, Calcium 9.5, Magnesium 1.8, Total Bilirubin 0.60, Direct Bilirubin 0.12, AST 22, ALT 30, Alkaline Phosphatase 112, Troponin I High Sens 21, Total Protein 8.1, Albumin 4.0, Globulin 4.1 04/12/24 17:05: POC Glucose 107 H 04/12/24 17:20: Troponin I High Sens 26 04/12/24 19:20: Troponin I High Sens 32 04/12/24 23:19: POC Glucose 159 H 04/13/24 02:48: POC Glucose 63 L 04/13/24 03:38: POC Glucose 78 04/13/24 05:08: WBC 10.4, RBC 3.81 L, Hgb 11.0 L, Hct 33.3 L, MCV 87.4, MCH 28.9, MCHC 33.0, RDW Std Deviation 50.3 H, RDW Coeff of Mateus 15.9 H, Plt Count 220, MPV 12.4 H, Immature Gran % (Auto) 0.300, Neut % (Auto) 66.6, Lymph % (Auto) 22.3, [place] % (Auto) 6.3, Eos % (Auto) 3.2, Baso % (Auto) 1.3 H, Absolute Neuts (auto) 6.9, Absolute Lymphs (auto) 2.32, Nucleated RBC % 0, Sodium 141, Potassium 3.4 L, Chloride 112 H, Carbon Dioxide 24.0, Anion Gap 5, BUN 17, Creatinine 0.65, Estim Creat Clear Calc 55.70, Est GFR (MDRD) Af Amer 115, Est GFR (MDRD) Non-Af 95, BUN/Creatinine Ratio 26.0 H, Glucose 116 H, Calcium 9.1, TSH 1.290 04/13/24 06:18: POC Glucose 123 H 04/13/24 11:05: POC Glucose 303 H Radiography Diagnostic Testing: Radiology Impression Chest X-Ray 04/12/24 13:55 IMPRESSION: Chronic fibrosis/interstitial lung disease with residual infection or inflammation in the right upper and left lower lung, decreased from prior. Electronically Signed: Sara Perkins MD at 14:29 EDT , Echocardiogram 04/13/24 05:55 Interpretation Summary Normal LV size. No regional wall motion abnormalities noted. The left ventricular ejection fraction is 65 %. Mild focal aortic valve calcification. Contrast injection was performed. Ordering Physician: Eduardo Hicks Referring Physician: Eric Bravo Performed By: Kelvin De Luna RCS D/C Instructions Discharge Diet: 1800 Calorie Control Diet Weight Bearing Status: Full weight bearing Meaningful Use Info Meaningful Use Meaningful Use Diagnoses (Choose all that apply): None applicable Ischemic Stroke Statin Dosing Therapy Reference: STATIN DOSE THERAPY REFERENCE: * Patients > 75 years receive moderate or high dose statin therapy. * Patients 75 years or YOUNGER should receive HIGH intensity statin dose unless contraindicated. You will be required to document reason for non-treatment if statin daily dose does not meet guidelines. HIGH DOSE STATIN THERAPY DAILY Atorvastatin > than or = to 40 mg Rosuvastatin > than or = to 20 mg Amlodipine + Atorvastatin > than or = to 2.5/40 mg Ezetimibe + Simvastatin 10/80 mg Simvastatin 80mg Discharge Plan Admission Admit Date/Time: 04/12/24 15:46 Primary Reason for Your Visit: New onset A-fib with RVR Attending Provider: Eric De Los Santos Primary Care Provider: Eric Bravo Consulting Providers: Eduardo Hicks Instructions Additional Instructions / Restrictions: Due to the fact you are taking Eliquis, you should not take ibuprofen, Aleve, or any other anti-inflammatory medications. You may take Tylenol or a narcotic for pain, this is permissible. Report any abnormal bleeding to your PCP, you may notice easier bruising which can happen while taking Eliquis. Discharge Orders/Prescriptions Prescriptions: New metoprolol tartrate 50 mg Tablet 50 mg PO BID Qty: 60 0RF Eliquis 5 mg tablet 5 mg PO BID Qty: 60 0RF Continued methotrexate sodium 2.5 mg tablet 12.5 mg PO QWEEK Patient Comments: TAKE 5 (FIVE) tablets BY MOUTH per week losartan 25 mg tablet 25 mg PO DAILY magnesium oxide 400 mg magnesium tablet 400 mg PO DAILY folic acid 1 mg tablet 1 mg PO DAILY insulin lispro [Humalog KwikPen Insulin] 100 unit/mL Insulin Pen See Protocol subcut ACHS Qty: 0 0RF Protocol: 3. Sliding Scale Insulin Med Dosing Condition: 150-189 mg/dl = 1 unit Condition: 190-229 mg/dl = 2 units Condition: 230-269 mg/dl = 3 units Condition: 270-309 mg/dl = 4 units Condition: 310-349 mg/dl = 5 units Condition: 350-399 mg/dl = 6 units Condition: 400-449 mg/dl = 7 units Condition: Greater than 449 call physician Protocol Text: - Use for Total Daily Dose of Insulin 37-55 units - Obsese, infected, or steroid patients MEDIUM DOSING ALGORITHIM insulin lispro [Humalog KwikPen Insulin] 100 unit/mL insulin pen 15 unit subcut TID Rx Instructions: Hold if glucose less than 130 mg/dl insulin glargine [Lantus Solostar U-100 Insulin] 100 unit/mL (3 mL) insulin pen 16 unit subcut BID alendronate 70 mg tablet 70 mg PO QWEEK Rx Instructions: Takes on Friday levothyroxine 150 mcg tablet 150 mcg PO DAILY acetaminophen 500 mg Tablet 1,000 mg PO Q8 PRN (Reason: fever or pain 1-10) Discontinued metoprolol tartrate 25 mg Tablet 25 mg PO BID 30 Days Qty: 60 0RF Referrals / Follow Up: Eric Bravo DO [Primary Care Provider] - Within 2 Weeks Disposition Disposition (needs filled in before D/C Order can be placed): Home, Self Care Charges/Coding Visit Charges Inpatient E&M: 26152 Disch Hosp >30min
--- NOTE | 2024-04-13 14:26 | CASEMGMT ---
Patient has order for discharge. Patient is discharging on Eliquis, copay is $307. MARILYN CM in to discuss needs at discharge and updated regarding Eliquis copay. MARILYN HECK provided patient with Eliquis savings card. Patient denies needs or help at discharge, at bedside. Patient had no further questions or concerns.
[2024-04-13] MEDS: Acetaminophen 500 MG Tablet 1000 MG PO (15:16)
--- OUTSIDE RECORDS SUMMARY | 2024-04-15 14:35 | XMS RPT_ITS | CCD ---
Author Organization [facility] ion [facility] Care Team Providers Care Angledozer Operator Name Role Phone Tu Dotson Unavailable Grisel [...] ON FILE] Propensity to adverse reactions (disorder) [facility] (6 sources) Egg Propensity to adverse reactions to drug 9 [facility] (6 sources) Malt Propensity to adverse reactions to drug 8 [facility] (6 sources) *Seasonal Propensity to adverse reactions to substance 6 [facility] Medications Current Medications Medication Drug Class(es) Dates Sig (Normalized) Sig (Original) folic acid 1 mg oral tablet (8 sources) Start: 12-04-2022 Folic acid 1 MG tablet Indications: Rheumatoid arthritis involving multiple sites with positive rheumatoid factor , Adalimumab (Humira) long-term use , Alkaline phosphatase elevation , CRP elevated , Fatigue, unspecified type , 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 , 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 , Long-term use of high-risk medication , 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, custodial, current use , Rheumatoid factor positive , [...] -10 units before meals INSULIN ASPART SOLN [id number] Herminia Bolivar leucovorin 5 mg oral tablet (9 sources) Folate Analog Start: 12-04-2022 leucovorin 5 M G tablet Indications: Rheumatoid arthritis involving multiple sites with positive rheumatoid factor , Adalimumab (Humira) long-term use , Alkaline phosphatase elevation , CRP elevated , Fatigue, unspecified type , 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 , FDC current use of systemic steroids , Long-term use of high-risk medication , 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, custodial, current use , Rheumatoid factor positive , [...] right , 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 , FDC current use of systemic steroids , Long-term use of high-risk medication , 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, long term 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, current use , Rheumatoid factor positive , [...] type , 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 , 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 , Long-term use of high-risk medication , 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, custodial, current use , Rheumatoid factor positive , [...] type , 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 , 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 , Long-term use of high-risk medication , 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, long term 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, current use , Rheumatoid factor positive , [...] by mouth every other day LEVOTHYROXINE SODIUM [id number] Herminia Bolivar Start: 12-01-2015 take 1 tablet by alonso th every other day LEVOTHYROXINE SODIUM 137 MCG TABS One tablet by mouth every other day LEVOTHYROXINE SODIUM [id number] Herminia Bolivar 20 ml tocilizumab 20 mg/ml injection (4 sources) Interleukin-6 Receptor Antagonist Start: 01-16-2024 Tocilizumab 400 MG/2 0ML Solution Indications: Rheumatoid arthritis involving multiple sites with positive rheumatoid factor , Abnormal ANCA test , CRP elevated , H/O total shoulder replacement, right , 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 , 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 , Long-term use of high-risk medication , 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, custodial, current use , Rheumatoid factor positive , [...] MG TABS 1-2 po q6h prn HYDROCODONE-ACETAMINOPHEN [id number] Tu Dotson 0.4 ml adalimumab 100 mg/ml [...] 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 , 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 , 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 , Long-term use of high-risk medication , 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, custodial, current use , Rheumatoid factor positive , [...] type , 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 , FDC current use of systemic steroids , Long-term use of high-risk medication , 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, long term 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, current use , Rheumatoid factor positive , [...] 1 tablet by mouth daily CALCIUM CARB-CHOLECALCIFEROL [id number] Tavares Bravo DO Start: 12-01-2015 End: 12-05-2015 take 1 tablet by mouth once daily CALCIUM 600+D TABS One tablet by mouth daily CALCIUM CARBONATE-VITAMIN D TABS [id number] Tavares Bravo DO Start: 12-01-2015 take 1 tablet by alonso th once daily CALCIUM 600+D TABS One tablet by mouth daily CALCIUM CARBONATE-VITAMIN D TABS 60165922730 Herminia Bolivar cholecalciferol 1000 unt oral tablet (3 sources) Vitamin D Start: 12-01-2015 take 1 tablet by mouth once daily VITAMIN D3 1000 UNIT TABS One tablet by mouth daily CHOLECALCIFEROL 58315757652 Herminia Bolivar 1 ml diphenhydrAMINE hydrochloride 50 [...] factor , Rheumatoid factor positive , 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, custodial, current use , Long-term use of high-risk [...] 22 units before bedtime INSULIN GLARGINE SOLN [id number] Herminia Bolivar losartan potassium 25 mg oral [...] One tablet by mouth daily MAGNESIUM OXIDE 12902149172 Herminia Bolivar milk thistle extract 175 mg oral capsule (3 sources) Start: 12-01-2015 take 1 tablet by mouth once daily MILK THISTLE 175 MG CAPS One tablet by mouth daily MILK THISTLE 70420756509 Herminia Bolivar MULTIPLE VITAMINS-MINERALS (3 sources) Start: 12-01-2015 take 1 tablet by mouth once daily MULTIVITAMIN ADULT TABS One tablet by mouth daily MULTIPLE VITAMINS-MINERALS 24202970827 Herminia Bolivar Tocilizumab (ACTEMRA) 240 mg in [...] by mouth every other day VITAMIN E 80079477696 Herminia Bolivar triamcinolone acetonide 1 mg/ml topical lotion (3 sources) Corticosteroid Start: 12-05-2015 TRIAMCINOLONE ACETONIDE 0.1 % LOTN Apply twice daily as needed to affected areas TRIAMCINOLONE ACETONIDE [id number] Tavares Bravo DO Problems Active Problems Problem [...] Onset: 10-27-2023 Chronic Other aftercare (4 sources) FDC current use of adalimumab therapy; 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: [Adalimumab (Humira) long-term use] Onset: 12-04-2022 12-04-2022 Episodic Other aftercare (4 sources) Patient encounter status; 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: [Encounter for therapeutic drug level monitoring] Onset: 01-16-2024 01-16-2024 Episodic Other aftercare (4 sources) Other long term 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 (current) drug therapy; 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: [Other long term 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 (current) drug therapy] Onset: 10-27-2023 Episodic Other [...] aftercare] Onset: 03-10-2017 03-20-2017 Unclassified (1 source) FDC (current) use of immunosuppressive biologic; 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: [FDC (current) use of immunosuppressive biologic] Onset: 09-12-2023 Unclassified (1 source) 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 (current) use of antimetabolite agent; 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: [FDC (current) use of antimetabolite agent] Onset: 12-04-2022 [...] Long-term current use of systemic steroid; 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: [FDC (current) use of systemic steroids] Onset: 3 12-04-2022 Episodic Other aftercare (12 sources) H/O: high risk medication; 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: [Other long term 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 (current) drug therapy] Onset: 3 12-04-2022 Episodic Other aftercare (12 sources) 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 methotrexate user; 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: [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, custodial, current use] Onset: 3 12-04-2022 Episodic Other aftercare (7 sources) Drug indicated; 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: [Infliximab (Remicade) long-term use] Onset: 3 Resolved: 4 09-12-2023 Episodic Other aftercare (2 sources) FDC (current) use of systemic steroids; 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: [FDC (current) use of systemic steroids] Onset: 3 [...] Onset: 3 12-04-2022 Episodic Unclassified (1 source) FDC (current) use of immunosuppressive biologic; 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: [FDC (current) use of immunosuppressive biologic] Onset: 4 Unclassified (1 source) FDC (current) use of antimetabolite agent; 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: [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 (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) use of antimetabolite agent] Onset: 3 Results Test Name Value Interpretation Reference Range Facil ity HbA1c (Bld) [Mass fraction]o n 01-16-2024 Average glucose Estimated from glycated hemoglobin (Bld) [Mass/Vol] 246 mg/dL Normal Not Established [facility] Comment on above: Order Comment: Diagn osis of Diabetes-Adults Non-Diabetic: < or = 5.6% Increased risk for developing diabetes: 5.7-6.4% Diagnostic of diabetes: > or = 6.5% Performed By: #### 4 548-4 #### RADHA Gutierrez ([id number]) [facility] ([facility]) [address] [place] [address] Hemoglobin A1c/Hemoglobin.to jaziel 01-16-2024 HbA1c (Bld) [Mass fraction] 10.2 % High see below [facility] Comment on above: Order Comment: Diagn osis of Diabetes-Adults Non-Diabetic: < or = 5.6% Increased risk for developing diabetes: 5.7-6.4% Diagnostic of diabetes: > or = 6.5% Performed By: #### 4 548-4 #### RADHA Gutierrez ([id number]) [facility] ([facility]) [address] [place], [place] [id number] Thyrotropinon 01-16-2024 TSH Qn 0.12 m[IU]/L Low 0.44-3.98 [facility] Comment on above: Order Comment: TSH t esting is performed using different testing methodology at [facility] than at other [facility]. Direct result comparisons should only be made within the same method. Performed By: #### 3 016-3 #### HEENA ROSAS ([id number]) [facility] ([facility]) [address] [place] [address] Calcidiolon 10-27-2023 25-hydroxyvitamin D3 [Mass/Vol] 40 ng/mL Normal 30-100 [facility] Comment on above: Order Comment: Defic iency: < 20 ng/ml Insufficiency: 20-29 ng/ml Sufficiency: 30-100 ng/ml This assay accurately quantifies the sum of Vitamin D3, 25-Hydroxy and Vitamin D2,25-Hydroxy. Performed By: #### 1 989-3 #### HEENA ROSAS ([id number]) [facility] ([facility]) [address] [place] [address] Collagen crosslinked C-telop eptideon 10-27-2023 Collagen crosslinked C-telopeptide [Mass/Vol] 416 pg/mL Normal [facility] Comment on above: Result Comment: Premenopausal Females: 136-689 pg/mL Postmenopausal Females: 177-1015 pg/mL REFERENCE INTERVAL: C-Telopeptide, Kgwf-Vddaw-Tiblxw, Serum Access complete set of age- and/or gender-specific reference intervals for this test in the [facility] Test Directory ([facility]). Performed By: [facility] [address] [place] [address] Coating Line Worker: Bryce Dial MD, PhD CLIA Number: [id number] Performed By: #### 4 1171-0 #### I Had Cancer KuldeepMIMIERIN) ([id number]) [address] [place] [address] Parathyrin.intacton 10-27-19 24 Parathyrin.intact [Mass/Vol] 37.2 pg/mL Normal 18.5-88.0 [facility] Comment on above: Performed By: #### 2 731-8 #### RADHA Gutierrez ([id number]) [facility] ([facility]) [address] [place] [address] Renal function 2000 panelon 10-27-2023 Albumin BCP dye [Mass/Vol] 3.3 g/dL Low 3.4-5.0 [facility] Comment on above: Performed By: #### 2 4362-6 #### HEENA ROSAS ([id number]) [facility] ([facility]) [address] [place] [address] Anion gap [Moles/Vol] 16 mmol/L Normal 10-20 [facility] Comment on above: Performed By: #### 2 4362-6 #### HEENA ROSAS ([id number]) [facility] ([facility]) [address] [place] [address] Calcium [Mass/Vol] 8.5 mg/dL Low 8.6-10.3 [facility] Comment on above: Performed By: #### 2 4362-6 #### HEENA ROSAS ([id number]) [facility] ([facility]) [address] [place] [address] Chloride [Moles/Vol] 97 mmol/L Low 98-107 [facility] Comment on above: Performed By: #### 2 4362-6 #### HEENA ROSAS ([id number]) [facility] ([facility]) [address] [place] [address] CO2 [Moles/Vol] 28 mmol/L Normal 21-32 [facility] Comment on above: Performed By: #### 2 4362-6 #### HEENA ROSAS ([id number]) [facility] ([facility]) [address] [place] [address] Creatinine [Mass/Vol] 0.50 mg/dL Normal 0.50-1.05 [facility] Comment on above: Performed By: #### 2 4362-6 #### HEENA ROSAS ([id number]) [facility] ([facility]) [address] [place] [address] GFR/1.73 sq M.predicted MDRD (S/P/Bld) [Vol rate/Area] mL/min/{1.73_m2} Normal >60 [facility] Comment on above: Result Comment: Calc ulations of estimated GFR are performed using the 2020 CKD-EPI Study Refit equation without the race variable for the IDMS-Traceable creatinine methods. https://jasn.asnjournals.org/content//ASN.0401492989 Performed By: #### 2 4362-6 #### HEENA ROSAS ([id number]) [facility] ([facility]) [facility] [place] [address] Glucose [Mass/Vol] 176 mg/dL High 74-99 [facility] Comment on above: Performed By: #### 2 4362-6 #### HEENA ROSAS ([id number]) [facility] ([facility]) [address] [place] [address]67 Phosphate [Mass/Vol] 2.8 mg/dL Normal 2.5-4.9 [facility] Comment on above: Result Comment: The performance characteristics of phosphorus testing in heparinized plasma have been validated by the individual laboratory site where testing is performed. Testing on heparinized plasma is not approved by the FDA; however, such approval is not necessary. Performed By: #### 2 4362-6 #### HEENA ROSAS ([id number]) [facility] ([facility]) [address] [place] [address] Potassium [Moles/Vol] 3.6 mmol/L Normal 3.5-5.3 [facility] Comment on above: Performed By: #### 2 4362-6 #### HEENA ROSAS ([id number]) [facility] ([facility]) [address] [place] [address] Sodium [Moles/Vol] 137 mmol/L Normal 136-145 [facility] Comment on above: Performed By: #### 2 4362-6 #### HEENA ROSAS ([id number]) [facility] ([facility]) [address] [place] [address] Urea nitrogen [Mass/Vol] 8 mg/dL Normal 6-23 [facility] Comment on above: Performed By: #### 2 4362-6 #### HEENA ROSAS ([id number]) [facility] ([facility]) [address] [place] [address] Thyrotropinon 10-27-2023 TSH Qn 0.87 m[IU]/L Normal 0.44-3.98 [facility] Comment on above: Order Comment: TSH t esting is performed using different testing methodology at [facility] than at other [facility]. Direct result comparisons should only be made within the same method. Performed By: #### 3 016-3 #### NAIK ALISON ([id number]) [facility] ([facility]) [address] [place] [address] THYROXINE,FREEon 06-11-2022 THYROXINE,FREE 1.37 ng/dL High 0.61 - 1.12 [facility] Comment on above: Result Comment: Thyr oxine Free testing is performed using different testing methodology at [facility] than at other [facility]. Direct result comparisons should only be made [...] draw. Performed By: #### T 4FRE #### [address] [address] TSHon 06-11-2022 TSH Qn 3.89 m[IU]/L Normal 0.44 - 3.98 [facility] Comment on above: Result Comment: TSH testing is performed using different testing methodology at [facility] than at other [facility]. Direct result comparisons should only be made within the same method. Performed By: #### T SH2 #### [address] [address] THYROXINE,FREEon 05-06-2022 THYROXINE,FREE 0.82 ng/dL Normal 0.61 - 1.12 [facility] Comment on above: Result Comment: Thyr oxine Free testing is performed using different testing methodology at [facility] than at other [facility]. Direct result comparisons should only be made [...] draw. Performed By: #### T 4FRE #### [place] [id number] TSHon 05-06-2022 TSH Qn 20.35 m[IU]/L High 0.44 - 3.98 [facility] Comment on above: Result Comment: TSH testing is performed using different testing methodology at [facility] than at other [facility]. Direct result comparisons should only be made within the same method. Performed By: #### T SH2 #### [place] [address] [facility] Venous Duplex Ultra sound DVTon 04-10-2022 VAS LAB [place] [address] [phone], Vascular Lab Report Lower Venous Duplex Ultrasound Patient Name: DURAN Coleman Physician: [id number] Rosaline Combs MD Study Date: 04/10/2022 Referring Physician: KELLY SOTO MRN/PID: [id number] PCP: Accession/Order#: [id number] CC Report to: Date of : 1950 Technologist: Cristhian Romero Gender: F Technologist 2: Admission Status: Outpatient Location Performed: [facility] Diagnosis/ICD: M79.89-Left leg swelling Procedure/CPT: 21716 Peripheral venous duplex scan for DVT [id number] CONCLUSIONS: Left Lower Venous Insufficiency: There is [...] Reflux Peroneal Yes None PTV Partial Chronic 58490 Rosaline Combs MD Final Normal [facility] Office Visiton 05-07-2017 Documentation of current medications (procedure) Done Invalid Interpretation Code [facility] Work Phone: Tobacco smoking status NHIS Never Invalid Interpretation Code [facility] Work Phone: Tobacco use CPHS Former smoker Invalid Interpretation Code [facility] Work Phone: Office Visiton 04-07-2017 Documentation of current medications (procedure) Done Invalid Interpretation Code [facility] Work Phone: Tobacco smoking status NHIS Never Invalid Interpretation Code [facility] Work Phone: Tobacco use CPHS Former smoker Invalid Interpretation Code [facility] Work Phone: Lab Report: Basic Metabolic Profile (BMP)on 02-27-2017 Anion gap 8 mmol/L Invalid Interpretation Code 5-15 [facility] Work Phone: BUN/Creatinine Ratio 12.3 RATIO Invalid Interpretation Code 10-20 [facility] Work Phone: Calcium 8.9 mg/dL Invalid Interpretation Code 8.5-10.1 [facility] Work Phone: Chloride 95 mmol/L Low 98-107 [facility] Work Phone: CO2 27.0 mmol/L Invalid Interpretation Code 21.0-32.0 [facility] Work Phone: Creatinine 0.49 mg/dL Low 0.55-1.02 [facility] Work Phone: Creatinine 100.16 mL/min Invalid Interpretation Code [facility] Work Phone: eGFR (non-black) 136 mL/min/{1.73_m2} Invalid Interpretation Code >60 [facility] Work Phone: eGFR (non-black) 164 mL/min/{1.73_m2} Invalid Interpretation Code >60 [facility] Work Phone: Glucose mass conc 153 mg/dL High 70-110 [facility] Work Phone: Potassium molar conc 4.1 mmol/L Invalid Interpretation Code 3.5-5.1 [facility] Work Phone: Sodium 130 mmol/L Low 136-145 [facility] Work Phone: Urea nitrogen 6 mg/dL Low 7-18 [facility] Work Phone: Lab Report: CBC-Complete Blo od Cnt No Diffon 02-27-2017 Erythrocyte distribution width Auto Ratio (RBC) 14.0 % Invalid Interpretation Code 11.6-14.6 [facility] Work Phone: Erythrocytes (RBC) 3.63 10*6/uL Low 4.2-5.4 [facility] Work Phone: Hematocrit (HCT) 31.7 % Low 37-47 [facility] Work Phone: Hemoglobin mass conc (Bld) 10.3 g/dL Low 12.0-15.0 [facility] Work Phone: MCH 28.4 pg Invalid Interpretation Code 27.0-32.0 [facility] Work Phone: MCHC mass conc (RBC) 32.5 G/GL Invalid Interpretation Code 32-36 [facility] Work Phone: MCV 87.3 fL Invalid Interpretation Code 81-99 [facility] Work Phone: Platelets 243 10*3/mm3 Invalid Interpretation Code 150-450 [facility] Work Phone: PMV by Chasity 12.1 fL High 6.2-12.0 [facility] Work Phone: RDW SD 43.0 fL Invalid Interpretation Code 35.1-43.9 [facility] Work Phone: WBC (Leukocytes) 13.9 10*3/uL High 4.4-11.0 [facility] Work Phone: Lab Report: Bedside Glucoseo n 02-25-2017 Glucose mass conc 314 mg/dL High 70-110 [facility] Work Phone: Chart Maintenanceon 11-01-19 17 Hemoglobin A1c/Hemoglobin.to rebecca mass fraction (Bld) 8.8 % Invalid Interpretation Code [facility] Work Phone: Vital Signs Date Time Vital Sign Value Performing Clinician Facility 03-26-2024 14:50-0400 Body temperature 97.11 [degF] Avg Gregory Gal [facility] Nurse 2 [facility] 03-26-2024 14:50-0400 Diastolic blood pressure 72 mm[Hg] Avg Gregory Gal [facility]fusion Nurse 2 [facility] 03-26-2024 14:50-0400 Heart rate 81 /min Avg Gregory Gal [facility] Nurse 2 [facility] 03-26-2024 14:50-0400 Respiratory rate 16 /min Avg Gregory Gal [facility]fusion Nurse 2 [facility] 03-26-2024 14:50-0400 SaO2% (BldA) [Mass fraction] 96 % Avg Gregory Gal [facility]fusion Nurse 2 [facility] 03-26-2024 14:50-0400 Systolic blood pressure 126 mm[Hg] Avg Gregory Gal [facility]fusion Nurse 2 [facility] 02-27-2024 14:38-0400 Body temperature 98.01 [degF] Avg Gregory Gal [facility]fusion Nurse 3 [facility] 02-27-2024 14:38-0400 Diastolic blood pressure 64 mm[Hg] Avg Gregory Gal [facility]fusion Nurse 3 [facility] 02-27-2024 14:38-0400 Heart rate 74 /min Avg Gregory Gal Infusion Nurse 3 [facility] 02-27-2024 14:38-0400 Respiratory rate 16 /min Avg Gregory Gal [facility]fusion Nurse 3 [facility] 02-27-2024 14:38-0400 SaO2% (BldA) [Mass fraction] 97 % Avg Gregory Gal [facility]fusion Nurse 3 [facility] 02-27-2024 14:38-0400 Systolic blood pressure 138 mm[Hg] Avg Gregory Gal [facility]fusion Nurse 3 [facility] 01-30-2024 15:17-0400 Body temperature 98.2 [degF] Avg Gregory [facility] Nurse [address] [place] [address] 01-30-2024 15:17-0400 Diastolic blood pressure 70 mm[Hg] Avg [facility] Nurse [address] [place] [address] 01-30-2024 15:17-0400 Heart rate 85 /min Avg [facility] Nurse [address] [place] [address] 01-30-2024 15:17-0400 Respiratory rate 16 /min Avg [facility] Nurse [address] [place] [address] 01-30-2024 15:17-0400 SaO2% (BldA) [Mass fraction] 96 % Avg [facility] Nurse [address] [place] [address] 01-30-2024 15:17-0400 Systolic blood pressure 148 mm[Hg] Avg Gregory [facility] Nurse [address] [place] [address] 01-30-2024 13:00-0400 Body mass index (BMI) [Ratio] 20.55 kg/m2 Avg [facility] [address] [place] [address] 01-30-2024 13:00-0400 Body weight 54.3 kg Avg [facility] Nurse [address] [place] [address] 01-16-2024 10:35-0400 Body height 162.6 cm Sidney Rose Jr., DO Work Phone: [facility] 01-16-2024 10:35-0400 Body mass index (BMI) [Ratio] 21.97 kg/m2 Sidney Rose Jr., DO Work Phone: [facility] 01-16-2024 10:35-0400 Body weight 58.06 kg Sidney Rose Jr., DO Work Phone: [facility] 01-16-2024 10:35-0400 Diastolic blood pressure 86 mm[Hg] Sidney Rose Jr., DO Work Phone: [facility] 01-16-2024 10:35-0400 Heart rate 71 /min Sidney Rose Jr., DO Work Phone: [facility] 01-16-2024 10:35-0400 SaO2% (BldA) [Mass fraction] 96 % Sidney Rose Jr., DO Work Phone: [facility] 01-16-2024 10:35-0400 Systolic blood pressure 142 mm[Hg] Sidney Rose Jr., DO Work Phone: [facility] 09-25-2023 13:45-0400 Body temperature 97.7 [degF] [facility] [address] [place] [address] 09-25-2023 13:45-0400 Diastolic blood pressure 70 mm[Hg] [facility] [address] [place] [address] 09-25-2023 13:45-0400 Heart rate 66 /min [facility] [address] [place] [address] 09-25-2023 13:45-0400 Respiratory rate 16 /min [facility] Nurse [address] [place] [address] 09-25-2023 13:45-0400 SaO2% (BldA) [Mass fraction] 96 % [facility] Nurse [address] [place] [address] 09-25-2023 13:45-0400 Systolic blood pressure 143 mm[Hg] [facility] Nurse [address] [place] [address] 09-25-2023 10:17-0400 Body mass index (BMI) [Ratio] 21.99 kg/m2 [facility] [address] [place] [address] 09-25-2023 10:17-0400 Body weight 58.11 kg Avg [facility] Nurse [address] [place] [address] 09-12-2023 07:45-0400 Body height 162.6 cm Sidney Rose Jr., DO Work Phone: [facility] 09-12-2023 07:45-0400 Body mass index (BMI) [Ratio] 21.97 kg/m2 Sidney Rose Jr., DO Work Phone: [facility] 09-12-2023 07:45-0400 Body temperature 97 [degF] Sidney Rose Jr., DO [facility] 09-12-2023 07:45-0400 Body weight 58.06 kg Sidney Rose Jr., DO Work Phone: [facility] 09-12-2023 07:45-0400 Diastolic blood pressure 68 mm[Hg] Sidney Rose Jr., DO Work Phone: [facility] 09-12-2023 07:45-0400 Heart rate 71 /min Sidney Palaciomario albertojhonathan Menchaca, DO Work Phone: [facility] 09-12-2023 07:45-0400 SaO2% (BldA) [Mass fraction] 95 % Sidney Rose Jr., DO Work Phone: [facility] 09-12-2023 07:45-0400 Systolic blood pressure 122 mm[Hg] Sidney Palaciomario albertojhonathan Menchaca, DO Work Phone: [facility] 04-28-2023 10:52-0500 Body height 162.6 cm Sidney Rose Jr., DO Work Phone: [facility] 04-28-2023 10:52-0500 Body mass index (BMI) [Ratio] 21.99 kg/m2 Sidney Rose Jr., DO Work Phone: [facility] 04-28-2023 10:52-0500 Body temperature 97.7 [degF] Sidney Jeronimomario albertojhonathan Menchaca, DO Work Phone: [facility] 04-28-2023 10:52-0500 Body weight 58.1 kg Sidney Jeronimomario albertojhonathan Menchaca, DO Work Phone: [facility] 04-28-2023 10:52-0500 Diastolic blood pressure 84 mm[Hg] Sidney Jeronimomario albertojhonathan GlassBulmaro, DO Work Phone: [facility] 04-28-2023 10:52-0500 Heart rate 85 /min Sidney Rose Jr., DO Work Phone: [facility] 04-28-2023 10:52-0500 SaO2% (BldA) [Mass fraction] 95 % Sidney Rose Jr., DO Work Phone: [facility] 04-28-2023 10:52-0500 Systolic blood pressure 134 mm[Hg] Sidney Rose Jr., DO Work Phone: [facility] 12-04-2022 10:35-0400 Body height 162.6 cm Sidney Rose Jr., DO Work Phone: [facility] 12-04-2022 10:35-0400 Body mass index (BMI) [Ratio] 21.97 kg/m2 Sidney Rose Jr., DO Work Phone: [facility] 12-04-2022 10:35-0400 Body temperature 97.9 [degF] Sidney Rose Jr., DO Work Phone: [facility] 12-04-2022 10:35-0400 Body weight 58.06 kg Sidney Rose Jr., DO Work Phone: [facility] 12-04-2022 10:35-0400 Diastolic blood pressure 74 mm[Hg] Sidney Rose Jr., DO Work Phone: [facility] 12-04-2022 10:35-0400 Systolic blood pressure 112 mm[Hg] Sidney Rose Jr., DO Work Phone: [facility] 02-07-2017 14:25-0400 BMI (Body Mass Index) 24.54 kg/m2 [facility] Work Phone: 02-07-2017 14:25-0400 Weight 64.86 kg [facility] Work Phone: 12-05-2015 08:22-0400 Body Temperature 98.4 [degF] [facility] Work Phone: 12-05-2015 08:22-0400 BP Diastolic 90 mm[Hg] [facility] Work Phone: 12-05-2015 08:22-0400 BP Systolic 148 mm[Hg] [facility] Work Phone: 12-05-2015 08:22-0400 BSA (Body Surface Area) 1.71 m2 [facility] Work Phone: 12-05-2015 08:22-0400 Height 162.56 cm [facility] Work Phone: 12-05-2015 08:22-0400 Pulse (Heart Rate) 73 /min [facility] Work Phone: 12-05-2015 08:22-0400 Respiratory Rate 16 /min [facility] Work Phone: Encounters Encounter Date Encounter Type Care Provider Facility Start: 05-21-2024 ambulatory SIDNEY GRANT JR [facility] Start: 04-23-2024 ambulatory [facility] Start: 03-26-2024 End: 03-26-2024 Patient encounter procedure Sidney Rose DO Work Phone: [facility] Comment on above: Rheumatoid arthritis involving multiple sites with positive rheumatoid factor (Primary Dx) Start: 03-26-2024 End: 03-26-2024 ambulatory SIDNEY ROSE JR [facility] Start: 02-27-2024 End: 02-27-2024 Patient encounter procedure Sidney Rose DO Work Phone: [facility] Comment on above: Rheumatoid arthritis involving multiple sites with positive rheumatoid factor (Primary Dx) Start: 02-27-2024 End: 02-27-2024 ambulatory [facility] Nurse 3 [facility] Start: 01-30-2024 End: 01-30-2024 ambulatory [facility] Gregory Gal Infusion Nurse 6 [facility] Start: 01-30-2024 End: 01-30-2024 Patient encounter procedure Sidney Rose DO Work Phone: [facility] Comment on above: Rheumatoid arthritis involving multiple sites with positive rheumatoid factor (Primary Dx) Start: 01-16-2024 End: 01-16-2024 [facility] Start: 01-16-2024 ambulatory SIDNEY GRANT [facility] Start: 01-16-2024 End: 01-16-2024 Office outpatient visit 25 minutes Sidney Rose DO Work Phone: [facility] Comment on above: Rheumatoid arthritis involving multiple sites with positive rheumatoid factor (Primary Dx); Abnormal ANCA test; CRP elevated; H/O total shoulder replacement, right; 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; FDC current use of systemic steroids; Long-term use of high-risk medication; 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, long term 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, current use; Rheumatoid factor positive; Visit for monitoring Actemra therapy; Osteoarthritis of carpometacarpal (CMC) joint of both thumbs; Primary osteoarthritis of both hands; Primary osteoarthritis of both wrists Start: 10-27-2023 End: 10-27-2023 [facility] Start: 10-10-2023 [facility] SIDNEY ROSE [facility] Start: 10-09-2023 [facility] Start: 09-25-2023 End: 09-25-2023 Patient encounter procedure Sidney Rose DO Work Phone: [facility] Comment on above: Rheumatoid arthritis involving multiple sites with positive rheumatoid factor (Primary Dx) Start: 09-25-2023 End: 09-25-2023 ambulatory [facility]fusion Nurse 5 [facility] Start: 09-12-2023 End: 09-12-2023 Office outpatient visit 25 minutes Sidney Rose DO Work Phone: [facility] Comment on above: Rheumatoid arthritis involving multiple sites with positive rheumatoid factor (Primary Dx); Rheumatoid factor positive; 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, custodial, current use; Long-term use of high-risk medication; Infliximab (Remicade) long-term use; 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; H/O total shoulder replacement, right; CRP elevated; Abnormal ANCA test; Primary osteoarthritis of both wrists; Primary osteoarthritis of both hands; Osteoarthritis of carpometacarpal (CMC) joint of both thumbs Start: 09-12-2023 ambulatory SIDNEY JANICE GRANT [facility] Start: 04-28-2023 End: 04-28-2023 Office outpatient visit 15 minutes Sidney Rose DO Work Phone: [facility] Comment on above: Rheumatoid arthritis involving multiple sites with positive rheumatoid factor (Primary Dx); Abnormal ANCA test; Adalimumab (Humira) long-term use; Alkaline phosphatase elevation; CRP elevated; Elevated TSH; 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; 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; FDC current use of systemic steroids; Long-term use of high-risk medication; 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, custodial, current use; Rheumatoid factor positive; Vitamin D deficiency; Hypothyroidism, unspecified type; Osteoarthritis of carpometacarpal (CMC) joint of both thumbs; Primary osteoarthritis of both hands; Primary osteoarthritis of both wrists; Normochromic normocytic anemia Start: 04-28-2023 [facility] Start: 01-22-2023 ambulatory [facility] Start: 12-04-2022 End: 12-04-2022 Office outpatient new 45 minutes Sidney Rose DO Work Phone: [facility] Comment on above: Rheumatoid arthritis involving multiple sites with positive rheumatoid factor (Primary Dx); Adalimumab (Humira) long-term use; Alkaline phosphatase elevation; CRP elevated; Fatigue, unspecified type; 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; 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; Long-term use of high-risk medication; 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, custodial, current use; Rheumatoid factor positive; Primary hypertension; [...] procedure 05/21/2024 10:30 AM EST Office Visit [facility] [address] [place] [phone] [facility], Sidney Nieves, [address] [address] [facility] Start: 04-23-2024 End: 04-23-2024 Patient encounter procedure 04/23/2024 1:00 PM EST Infusion Visit [facility] [address] [place] [id number] [facility] Start: 03-26-2024 End: 03-26-2024 Patient encounter procedure 03/26/2024 1:00 PM EDT Infusion Visit [facility] [address] [place] [address] [facility] Start: 02-27-2024 End: 02-27-2024 Patient encounter procedure 02/27/2024 1:00 PM EDT Infusion Visit [facility] [address] [place] [address] [facility] Start: 02-15-2024 COVID-19 VACCINE ( season) COVID-19 VACCINE () [facility] Start: 02-15-2024 Influenza vaccination [facility] Start: 01-16-2024 End: 01-16-2024 Patient encounter procedure 01/16/2024 10:30 AM EDT Office Visit [facility] [address] [place] [address] Sidney Rose Jr., DO [address] [place] [id number] [facility] Start: 10-09-2023 End: 10-09-2023 Patient encounter procedure 10/09/2023 10:00 AM EDT Infusion Visit [facility] [address] [place] [address] [facility] Start: 09-12-2023 End: 09-12-2023 Patient encounter procedure 09/12/2023 8:00 AM EDT Office Visit [facility] [address] [place] [address] Sidney Rose Jr., DO [address] [place] [phone] [facility] Start: 03-25-2023 COVID-19 VACCINE ( season) COVID-19 VACCINE ( season) [facility] Start: 02-14-2023 Influenza vaccination INFLUENZA VACCINE (#1) [facility] Start: 01-22-2023 End: 01-22-2023 Patient encounter procedure 01/22/2023 9:30 AM EDT Office Visit [facility] [address] [place] [address] Sidney Rose Jr., DO [address] [place] [address] [facility] Start: 12-05-2022 End: 12-05-2023 SHAILA MULTIPLEX SCRN WITH REFLEX SHAILA MULTIPLEX SCRN WITH REFLEX Lab Routine Rheumatoid arthritis involving multiple sites with positive rheumatoid factor Adalimumab (Humira) long-term use Alkaline phosphatase elevation CRP elevated Fatigue, unspecified type 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 Long-term use of high-risk medication 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, custodial, current use Rheumatoid factor positive Primary hypertension Hypoalbuminemia Hyponatremia Hypothyroidism, unspecified type Type 1 diabetes mellitus with hyperglycemia Pain and swelling of left knee Bilateral hand pain Bilateral wrist pain Disorder of bone and cartilage Primary osteoarthritis of both hands Normochromic normocytic anemia Expected: 12/05/2022 (Approximate), Expires: 12/05/2023 [facility] Comment on above: Expected: 12/05/2022 (Approximate), Expi res: 12/05/2023 Start: 12-05-2022 End: 12-05-2023 ANCA INIT SCRN (ANCA, PR3AB, MPO) ANCA INIT SCRN (ANCA, PR3AB, MPO) Lab Routine Rheumatoid arthritis involving multiple sites with positive rheumatoid factor Adalimumab (Humira) long-term use Alkaline phosphatase elevation CRP elevated Fatigue, unspecified type 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 FDC current use of systemic steroids Long-term use of high-risk medication 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, custodial, current use Rheumatoid factor positive Primary hypertension Hypoalbuminemia Hyponatremia Hypothyroidism, unspecified type Type 1 diabetes mellitus with hyperglycemia Pain and swelling of left knee Bilateral hand pain Bilateral wrist pain Disorder of bone and cartilage Primary osteoarthritis of both hands Normochromic normocytic anemia Expected: 12/05/2022 (Approximate), Expires: 12/05/2023 [facility] Comment on above: Expected: 12/05/2022 (Approximate), Expi res: 12/05/2023 Start: 12-05-2022 End: 12-05-2023 Angiotensin converting enzyme [Enzymatic activity/volume] in Serum or Plasma ANGIOTENSIN CONVERTING ENZYME Lab Routine Rheumatoid arthritis involving multiple sites with positive rheumatoid factor Adalimumab (Humira) long-term use Alkaline phosphatase elevation CRP elevated Fatigue, unspecified type 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 FDC current use of systemic steroids Long-term use of high-risk medication 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, long term 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, current use Rheumatoid factor positive Primary hypertension Hypoalbuminemia Hyponatremia Hypothyroidism, unspecified type Type 1 diabetes mellitus with hyperglycemia Pain and swelling of left knee Bilateral hand pain Bilateral wrist pain Disorder of bone and cartilage Primary osteoarthritis of both hands Normochromic normocytic anemia Expected: 12/05/2022 (Approximate), Expires: 12/05/2023 [facility] Comment on above: Expected: 12/05/2022 (Approximate), Expi res: 12/05/2023 Start: 12-05-2022 End: 12-05-2023 ANTI MITOCHONDRIAL ANTIBODY ANTI MITOCHONDRIAL ANTIBODY Lab Routine Rheumatoid arthritis involving multiple sites with positive rheumatoid factor Adalimumab (Humira) long-term use Alkaline phosphatase elevation CRP elevated Fatigue, unspecified type 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 Long-term use of high-risk medication 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, long term 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, current use Rheumatoid factor positive Primary hypertension Hypoalbuminemia Hyponatremia Hypothyroidism, unspecified type Type 1 diabetes mellitus with hyperglycemia Pain and swelling of left knee Bilateral hand pain Bilateral wrist pain Disorder of bone and cartilage Primary osteoarthritis of both hands Normochromic normocytic anemia Encounter for screening for other viral diseases Expected: 12/05/2022 (Approximate), Expires: 12/05/2023 [facility] Comment on above: Expected: 12/05/2022 (Approximate), Expi res: 12/05/2023 Start: 12-05-2022 End: 12-05-2023 ANTI SMOOTH MUSCLE ANTIBODY ANTI SMOOTH MUSCLE ANTIBODY Lab Routine Rheumatoid arthritis involving multiple sites with positive rheumatoid factor Adalimumab (Humira) long-term use Alkaline phosphatase elevation CRP elevated Fatigue, unspecified type 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 Long-term use of high-risk medication 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, long term 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, current use Rheumatoid factor positive Primary hypertension Hypoalbuminemia Hyponatremia Hypothyroidism, unspecified type Type 1 diabetes mellitus with hyperglycemia Pain and swelling of left knee Bilateral hand pain Bilateral wrist pain Disorder of bone and cartilage Primary osteoarthritis of both hands Normochromic normocytic anemia Encounter for screening for other viral diseases Expected: 12/05/2022 (Approximate), Expires: 12/05/2023 [facility] Comment on above: Expected: 12/05/2022 (Approximate), Expi res: 12/05/2023 Start: 12-05-2022 End: 12-05-2023 C-reactive protein C REACTIVE PROTEIN Lab Routine Rheumatoid arthritis involving multiple sites with positive rheumatoid factor Adalimumab (Humira) long-term use Alkaline phosphatase elevation CRP elevated Fatigue, unspecified type 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 Long-term use of high-risk medication 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, long term 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, current use Rheumatoid factor positive Primary hypertension Hypoalbuminemia Hyponatremia Hypothyroidism, unspecified type Type 1 diabetes mellitus with hyperglycemia Pain and swelling of left knee Bilateral hand pain Bilateral wrist pain Disorder of bone and cartilage Primary osteoarthritis of both hands Normochromic normocytic anemia Expected: 12/05/2022 (Approximate), Expires: 12/05/2023 [facility] Comment on above: Expected: 12/05/2022 (Approximate), Expi res: 12/05/2023 Start: 12-05-2022 End: 12-05-2023 CK CK Lab Routine Rheumatoid arthritis involving multiple sites with positive rheumatoid factor Adalimumab (Humira) long-term use Alkaline phosphatase elevation CRP elevated Fatigue, unspecified type 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 Long-term use of high-risk medication 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, custodial, current use Rheumatoid factor positive Primary hypertension Hypoalbuminemia Hyponatremia Hypothyroidism, unspecified type Type 1 diabetes mellitus with hyperglycemia Pain and swelling of left knee Bilateral hand pain Bilateral wrist pain Disorder of bone and cartilage Primary osteoarthritis of both hands Normochromic normocytic anemia Expected: 12/05/2022 (Approximate), Expires: 12/05/2023 [facility] Comment on above: Expected: 12/05/2022 (Approximate), Expi res: 12/05/2023 Start: 12-05-2022 End: 12-05-2023 Complete blood count with white cell differential, automated CBC, EDIF, PLATELET Lab Routine Rheumatoid arthritis involving multiple sites with positive rheumatoid factor Adalimumab (Humira) long-term use Alkaline phosphatase elevation CRP elevated Fatigue, unspecified type 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 FDC current use of systemic steroids Long-term use of high-risk medication 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, long term 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, current use Rheumatoid factor positive Primary hypertension Hypoalbuminemia Hyponatremia Hypothyroidism, unspecified type Type 1 diabetes mellitus with hyperglycemia Pain and swelling of left knee Bilateral hand pain Bilateral wrist pain Disorder of bone and cartilage Primary osteoarthritis of both hands Normochromic normocytic anemia Expected: 12/05/2022 (Approximate), Expires: 12/05/2023 [facility] Comment on above: Expected: 12/05/2022 (Approximate), Expi res: 12/05/2023 Start: 12-05-2022 End: 12-05-2023 Comprehensive metabolic 2000 panel - Serum or Plasma COMPREHENSIVE METABOLIC PANEL Lab Routine Rheumatoid arthritis involving multiple sites with positive rheumatoid factor Adalimumab (Humira) long-term use Alkaline phosphatase elevation CRP elevated Fatigue, unspecified type 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 FDC current use of systemic steroids Long-term use of high-risk medication 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, long term 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, current use Rheumatoid factor positive Primary hypertension Hypoalbuminemia Hyponatremia Hypothyroidism, unspecified type Type 1 diabetes mellitus with hyperglycemia Pain and swelling of left knee Bilateral hand pain Bilateral wrist pain Disorder of bone and cartilage Primary osteoarthritis of both hands Normochromic normocytic anemia Expected: 12/05/2022 (Approximate), Expires: 12/05/2023 [facility] Comment on above: Expected: 12/05/2022 (Approximate), Expi res: 12/05/2023 Start: 12-05-2022 End: 12-05-2023 CYCLIC CITRULLINATE PEPTIDE AB CYCLIC CITRULLINATE PEPTIDE AB Lab Routine Rheumatoid arthritis involving multiple sites with positive rheumatoid factor Adalimumab (Humira) long-term use Alkaline phosphatase elevation CRP elevated Fatigue, unspecified type 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 Long-term use of high-risk medication 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, long term 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, current use Rheumatoid factor positive Primary hypertension Hypoalbuminemia Hyponatremia Hypothyroidism, unspecified type Type 1 diabetes mellitus with hyperglycemia Pain and swelling of left knee Bilateral hand pain Bilateral wrist pain Disorder of bone and cartilage Primary osteoarthritis of both hands Normochromic normocytic anemia Expected: 12/05/2022 (Approximate), Expires: 12/05/2023 [facility] Comment on above: Expected: 12/05/2022 (Approximate), Expi res: 12/05/2023 Start: 12-05-2022 End: 12-05-2023 FUNGITELL ASSAY FUNGITELL ASSAY Lab Routine Rheumatoid arthritis involving multiple sites with positive rheumatoid factor Adalimumab (Humira) long-term use Alkaline phosphatase elevation CRP elevated Fatigue, unspecified type 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 FDC current use of systemic steroids Long-term use of high-risk medication 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, long term 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, current use Rheumatoid factor positive Primary hypertension Hypoalbuminemia Hyponatremia Hypothyroidism, unspecified type Type 1 diabetes mellitus with hyperglycemia Pain and swelling of left knee Bilateral hand pain Bilateral wrist pain Disorder of bone and cartilage Primary osteoarthritis of both hands Normochromic normocytic anemia Expected: 12/05/2022 (Approximate), Expires: 12/05/2023 [facility] Comment on above: Expected: 12/05/2022 (Approximate), Expi res: 12/05/2023 Start: 12-05-2022 End: 06-21-2024 HEPATITIS A, B, C HEPATITIS A, B, C Lab Routin e Rheumatoid arthritis involving multiple sites with positive rheumatoid factor Adalimumab (Humira) long-term use Alkaline phosphatase elevation CRP elevated Fatigue, unspecified type 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 Long-term use of high-risk medication 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, long term 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, current use Rheumatoid factor positive Primary hypertension Hypoalbuminemia Hyponatremia Hypothyroidism, unspecified type Type 1 diabetes mellitus with hyperglycemia Pain and swelling of left knee Bilateral hand pain Bilateral wrist pain Disorder of bone and cartilage Primary osteoarthritis of both hands Normochromic normocytic anemia Encounter for screening for other viral diseases Expected: 12/05/2022 (Approximate), Expires: 12/05/2023 [facility] Comment on above: Expected: 12/05/2022 (Approximate), Expi res: 12/05/2023 Start: 12-05-2022 End: 12-05-2023 EMETERIO AND PE, SERUM EMETERIO AND PE, SERUM Lab Routin e Rheumatoid arthritis involving multiple sites with positive rheumatoid factor Adalimumab (Humira) long-term use Alkaline phosphatase elevation CRP elevated Fatigue, unspecified type 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 FDC current use of systemic steroids Long-term use of high-risk medication 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, long term 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, current use Rheumatoid factor positive Primary hypertension Hypoalbuminemia Hyponatremia Hypothyroidism, unspecified type Type 1 diabetes mellitus with hyperglycemia Pain and swelling of left knee Bilateral hand pain Bilateral wrist pain Disorder of bone and cartilage Primary osteoarthritis of both hands Normochromic normocytic anemia Expected: 12/05/2022 (Approximate), Expires: 12/05/2023 [facility] Comment on above: Expected: 12/05/2022 (Approximate), Expi res: 12/05/2023 Start: 12-05-2022 End: 12-05-2023 M TUBERCULOSIS BY QUANTIFERON, BLD M TUBERCULOSIS BY QUANTIFERON, BLD Lab Routine Rheumatoid arthritis involving multiple sites with positive rheumatoid factor Adalimumab (Humira) long-term use Alkaline phosphatase elevation CRP elevated Fatigue, unspecified type 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 Long-term use of high-risk medication 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, long term 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, current use Rheumatoid factor positive Primary hypertension Hypoalbuminemia Hyponatremia Hypothyroidism, unspecified type Type 1 diabetes mellitus with hyperglycemia Pain and swelling of left knee Bilateral hand pain Bilateral wrist pain Disorder of bone and cartilage Primary osteoarthritis of both hands Normochromic normocytic anemia Expected: 12/05/2022 (Approximate), Expires: 12/05/2023 [facility] Comment on above: Expected: 12/05/2022 (Approximate), Expi res: 12/05/2023 Start: 12-05-2022 End: 12-05-2023 Magnesium [Mass/volume] in Serum or Plasma MAGNESIUM Lab Routine Rheumatoid arthritis involving multiple sites with positive rheumatoid factor Adalimumab (Humira) long-term use Alkaline phosphatase elevation CRP elevated Fatigue, unspecified type 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 FDC current use of systemic steroids Long-term use of high-risk medication 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, custodial, current use Rheumatoid factor positive Primary hypertension Hypoalbuminemia Hyponatremia Hypothyroidism, unspecified type Type 1 diabetes mellitus with hyperglycemia Pain and swelling of left knee Bilateral hand pain Bilateral wrist pain Disorder of bone and cartilage Primary osteoarthritis of both hands Normochromic normocytic anemia Expected: 12/05/2022 (Approximate), Expires: 12/05/2023 [facility] Comment on above: Expected: 12/05/2022 (Approximate), Expi res: 12/05/2023 Start: 12-05-2022 End: 12-05-2023 PROCALCITONIN PROCALCITONIN Lab Routine Rheumatoid arthritis involving multiple sites with positive rheumatoid factor Adalimumab (Humira) long-term use Alkaline phosphatase elevation CRP elevated Fatigue, unspecified type 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 FDC current use of systemic steroids Long-term use of high-risk medication 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, custodial, current use Rheumatoid factor positive Primary hypertension Hypoalbuminemia Hyponatremia Hypothyroidism, unspecified type Type 1 diabetes mellitus with hyperglycemia Pain and swelling of left knee Bilateral hand pain Bilateral wrist pain Disorder of bone and cartilage Primary osteoarthritis of both hands Normochromic normocytic anemia Expected: 12/05/2022 (Approximate), Expires: 12/05/2023 [facility] Comment on above: Expected: 12/05/2022 (Approximate), Expi res: 12/05/2023 Start: 12-05-2022 End: 12-05-2023 RHEUMATOID FACTOR RHEUMATOID FACTOR Lab Routin e Rheumatoid arthritis involving multiple sites with positive rheumatoid factor Adalimumab (Humira) long-term use Alkaline phosphatase elevation CRP elevated Fatigue, unspecified type 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 FDC current use of systemic steroids Long-term use of high-risk medication 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, custodial, current use Rheumatoid factor positive Primary hypertension Hypoalbuminemia Hyponatremia Hypothyroidism, unspecified type Type 1 diabetes mellitus with hyperglycemia Pain and swelling of left knee Bilateral hand pain Bilateral wrist pain Disorder of bone and cartilage Primary osteoarthritis of both hands Normochromic normocytic anemia Expected: 12/05/2022 (Approximate), Expires: 12/05/2023 [facility] Comment on above: Expected: 12/05/2022 (Approximate), Expi res: 12/05/2023 Start: 12-05-2022 End: 12-05-2023 SEDIMENTATION RATE, AUTOMATED SEDIMENTATION RATE, AUTOMATED Lab Routine Rheumatoid arthritis involving multiple sites with positive rheumatoid factor Adalimumab (Humira) long-term use Alkaline phosphatase elevation CRP elevated Fatigue, unspecified type 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 Long-term use of high-risk medication 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, custodial, current use Rheumatoid factor positive Primary hypertension Hypoalbuminemia Hyponatremia Hypothyroidism, unspecified type Type 1 diabetes mellitus with hyperglycemia Pain and swelling of left knee Bilateral hand pain Bilateral wrist pain Disorder of bone and cartilage Primary osteoarthritis of both hands Normochromic normocytic anemia Expected: 12/05/2022 (Approximate), Expires: 12/05/2023 [facility] Comment on above: Expected: 12/05/2022 (Approximate), Expi res: 12/05/2023 Start: 12-05-2022 End: 12-05-2023 T-TRANSGLUTAMINASE IGA AB T-TRANSGLUTAMINASE IGA AB Lab Routine Rheumatoid arthritis involving multiple sites with positive rheumatoid factor Adalimumab (Humira) long-term use Alkaline phosphatase elevation CRP elevated Fatigue, unspecified type 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 Long-term use of high-risk medication 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, long term 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, current use Rheumatoid factor positive Primary hypertension Hypoalbuminemia Hyponatremia Hypothyroidism, unspecified type Type 1 diabetes mellitus with hyperglycemia Pain and swelling of left knee Bilateral hand pain Bilateral wrist pain Disorder of bone and cartilage Primary osteoarthritis of both hands Normochromic normocytic anemia Expected: 12/05/2022 (Approximate), Expires: 12/05/2023 [facility] Comment on above: Expected: 12/05/2022 (Approximate), Expi res: 12/05/2023 Start: 12-05-2022 End: 12-05-2023 Thyrotropin [Units/volume] in Serum or Plasma TSH Lab Routine Rheumatoid arthritis involving multiple sites with positive rheumatoid factor Adalimumab (Humira) long-term use Alkaline phosphatase elevation CRP elevated Fatigue, unspecified type 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 Long-term use of high-risk medication 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, custodial, current use Rheumatoid factor positive Primary hypertension Hypoalbuminemia Hyponatremia Hypothyroidism, unspecified type Type 1 diabetes mellitus with hyperglycemia Pain and swelling of left knee Bilateral hand pain Bilateral wrist pain Disorder of bone and cartilage Primary osteoarthritis of both hands Normochromic normocytic anemia Expected: 12/05/2022 (Approximate), Expires: 12/05/2023 [facility] Comment on above: Expected: 12/05/2022 (Approximate), Expi res: 12/05/2023 Start: 12-05-2022 End: 12-05-2023 Urate [Mass/volume] in Serum or Plasma URIC ACID Lab Routine Rheumatoid arthritis involving multiple sites with positive rheumatoid factor Adalimumab (Humira) long-term use Alkaline phosphatase elevation CRP elevated Fatigue, unspecified type 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 Long-term use of high-risk medication 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, long term 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, current use Rheumatoid factor positive Primary hypertension Hypoalbuminemia Hyponatremia Hypothyroidism, unspecified type Type 1 diabetes mellitus with hyperglycemia Pain and swelling of left knee Bilateral hand pain Bilateral wrist pain Disorder of bone and cartilage Primary osteoarthritis of both hands Normochromic normocytic anemia Expected: 12/05/2022 (Approximate), Expires: 12[facility]05/2023 [facility] on [facility]: Expected: 12/05/2022 (Approximate), Expi res: 12/05/2023 Start: 12-05-2022 End: 12-05-2023 VITAMIN D (25-HYDROXY,TOTAL) VITAMIN D (25-HYDROXY,TOTAL) Lab Routine Rheumatoid arthritis involving multiple sites with positive rheumatoid factor Adalimumab (Humira) long-term use Alkaline phosphatase elevation CRP elevated Fatigue, unspecified type 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 FDC current use of systemic steroids Long-term use of high-risk medication 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, custodial, current use Rheumatoid factor positive Primary hypertension Hypoalbuminemia Hyponatremia Hypothyroidism, unspecified type Type 1 diabetes mellitus with hyperglycemia Pain and swelling of left knee Bilateral hand pain Bilateral wrist pain Disorder of bone and cartilage Primary osteoarthritis of both hands Normochromic normocytic anemia Expected: 12/05/2022 (Approximate), Expires: 12/05/2023 [facility] Comment on above: Expected: 12/05/2022 (Approximate), Expi res: 12/05/2023 Start: 12-05-2022 End: 12-05-2023 VITAMIN D, (1,25 DIHYDROXY) VITAMIN D, (1,25 DIHYDROXY) Lab Routine Rheumatoid arthritis involving multiple sites with positive rheumatoid factor Adalimumab (Humira) long-term use Alkaline phosphatase elevation CRP elevated Fatigue, unspecified type 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 Long-term use of high-risk medication 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, long term 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, current use Rheumatoid factor positive Primary hypertension Hypoalbuminemia Hyponatremia Hypothyroidism, unspecified type Type 1 diabetes mellitus with hyperglycemia Pain and swelling of left knee Bilateral hand pain Bilateral wrist pain Disorder of bone and cartilage Primary osteoarthritis of both hands Normochromic normocytic anemia Expected: 12/05/2022 (Approximate), Expires: 12/05/2023 [facility] Comment on above: Expected: 12/05/2022 (Approximate), Expi res: 12/05/2023 Start: 12-04-2022 End: 12-05-2023 XR Hand - bilateral Views XR HANDS-RHEUMATOLOGY EVAL ONLY Imaging Routine Rheumatoid arthritis involving multiple sites with positive rheumatoid factor Adalimumab (Humira) long-term use Alkaline phosphatase elevation CRP elevated Fatigue, unspecified type 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 FDC current use of systemic steroids Long-term use of high-risk medication 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, custodial, current use Rheumatoid factor positive Primary hypertension Hypoalbuminemia Hyponatremia Hypothyroidism, unspecified type Type 1 diabetes mellitus with hyperglycemia Pain and swelling of left knee Bilateral hand pain Bilateral wrist pain Disorder of bone and cartilage Primary osteoarthritis of both hands Normochromic normocytic anemia Expected: 12/04/2022, Expires: 12/05/2023 [facility] Comment on above: Expected: 12/04/2022, Expires: Start: 12-04-2022 End: 12-05-2023 XR Wrist - left AP and Lateral XR WRIST LEFT AP AND LATERAL Imaging Routine Rheumatoid arthritis involving multiple sites with positive rheumatoid factor Adalimumab (Humira) long-term use Alkaline phosphatase elevation CRP elevated Fatigue, unspecified type 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 FDC current use of systemic steroids Long-term use of high-risk medication 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, custodial, current use Rheumatoid factor positive Primary hypertension Hypoalbuminemia Hyponatremia Hypothyroidism, unspecified type Type 1 diabetes mellitus with hyperglycemia Pain and swelling of left knee Bilateral hand pain Bilateral wrist pain Disorder of bone and cartilage Primary osteoarthritis of both hands Normochromic normocytic anemia Expected: 12/04/2022, Expires: 12/05/2023 [facility] Comment on above: Expected: 12/04/2022, Expires: 4 Start: 12-04-2022 End: 12-05-2023 XR Wrist - right AP and Lateral XR WRIST RIGHT AP AND LATERAL Imaging Routine Rheumatoid arthritis involving multiple sites with positive rheumatoid factor Adalimumab (Humira) long-term use Alkaline phosphatase elevation CRP elevated Fatigue, unspecified type 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 FDC current use of systemic steroids Long-term use of high-risk medication 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, long term 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, current use Rheumatoid factor positive Primary hypertension Hypoalbuminemia Hyponatremia Hypothyroidism, unspecified type Type 1 diabetes mellitus with hyperglycemia Pain and swelling of left knee Bilateral hand pain Bilateral wrist pain Disorder of bone and cartilage Primary osteoarthritis of both hands Normochromic normocytic anemia Expected: 12/04/2022, Expires: 12/05/2023 [facility] Comment on above: Expected: 12/04/2022, Expires: 4 Start: 08-26-2021 COVID-19 VACCINE (4 - Pfizer series) COVID-19 VACCINE (4 - Pfizer series) [facility] Start: 01-06-2018 Tetanus vaccination TETANUS [facility] Start: 2017 Pneumococcal vaccination PNEUMOCOCCAL VACCINE SERIES (1 - PCV) [facility] Start: 05-07-2017 End: 05-07-2017 Radex shoulder complete minimum 2 views X-Ray, Shoulder [facility] Work Phone: Start: 05-07-2017 End: 05-07-2017 Appointment Appointment [facility] Work Phone: Start: 04-07-2017 End: 04-07-2017 Radex shoulder complete minimum 2 views X-Ray, Shoulder [facility] Work Phone: Start: 03-12-2017 End: 03-12-2017 Physical Therapy General Physical Therapy [facility], [address] [place] [address], [phone] [facility] Work Phone: Start: 03-10-2017 End: 03-10-2017 Radex shoulder complete minimum 2 views X-Ray, Shoulder [facility] Work Phone: Start: 02-12-2017 End: 02-12-2017 Occupational Therapy General Occupational Therapy [facility], [address] [place] [address], [phone] [facility] Work Phone: Start: 02-07-2017 End: 02-25-2017 Ct upper extremity w/o contrast material CT Upper Extremity [facility] Work Phone: Start: 2012 RSV VACCINE (1 - 1-dose 60+ series) RSV VACCINE (1 - 1-dose 60+ series) [facility] Start: 2002 Zoster vaccine hzv live for subcutaneous use ZOSTER (SHINGLES) VACCINE (1 of 2) [facility] Start: 1997 Screening for malignant neoplasm of colon COLORECTAL CANCER SCREENING DISCUSSION [facility] Start: 1992 Lipid panel LIPID SCREENING [facility] Start: 1992 Screening for malignant neoplasm of breast MAMMOGRAM SCREENING DISCUSSION [facility] Start: 1973 Screening for malignant neoplasm of cervix CERVICAL CANCER SCREENING DISCUSSION [facility] Start: 1971 Third diphtheria, tetanus and acellular pertussis (DTaP) vaccination TDAP (ADULT) [facility] Start: 1952 Hepatitis C screening HEPATITIS C VIRUS SCREENING [facility] Start: 1952 Screening for osteoporosis DEXA SCAN DISCUSSION [facility] Start: 1952 Tetanus vaccination TETANUS [facility] Start: 1952 Thyroid stimulating hormone measurement TSH [facility] End: 04-28-2024 Alanine aminotransferase [Enzymatic activity/volume] in Serum or Plasma ALT Lab Routine Rheumatoid arthritis involving multiple sites with positive rheumatoid factor Abnormal ANCA test Adalimumab (Humira) long-term use Alkaline phosphatase elevation CRP elevated Elevated TSH 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 Long-term use of high-risk medication 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, long term 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, current use Rheumatoid factor positive Vitamin D deficiency Hypothyroidism, unspecified type Osteoarthritis of carpometacarpal (CMC) joint of both thumbs Primary osteoarthritis of both hands Primary osteoarthritis of both wrists Normochromic normocytic anemia Every 8 Weeks for 6 Occurrences starting 04/28/2023 until 04/28/2024 [facility] Comment on above: Every 8 Weeks for 6 Occurrences starting 04/28/2023 until 04/28/2024 End: 09-11-2024 Alanine aminotransferase [Enzymatic activity/volume] in Serum or Plasma ALT Lab Routine Rheumatoid arthritis involving multiple sites with positive rheumatoid factor Rheumatoid factor positive 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, long term 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, current use Long-term use of high-risk medication Infliximab (Remicade) long-term use 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 H/O total shoulder replacement, right CRP elevated Abnormal ANCA test Primary osteoarthritis of both wrists Primary osteoarthritis of both hands Osteoarthritis of carpometacarpal (CMC) joint of both thumbs Every 8 Weeks for 6 Occurrences starting 09/12/2023 until 09/11/2024 [facility] Comment on above: Every 8 Weeks for 6 Occurrences starting 09/12/2023 until 09/11/2024 End: 01-15-2025 Alanine aminotransferase [Enzymatic activity/volume] in Serum or Plasma ALT Lab Routine Rheumatoid arthritis involving multiple sites with positive rheumatoid factor Abnormal ANCA test CRP elevated H/O total shoulder replacement, right 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 Long-term use of high-risk medication 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, long term 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, current use Rheumatoid factor positive Visit for monitoring Actemra therapy Osteoarthritis of carpometacarpal (CMC) joint of both thumbs Primary osteoarthritis of both hands Primary osteoarthritis of both wrists Every 8 Weeks for 6 Occurrences starting 01/16/2024 until 01/15/2025 [facility] Comment on above: Every 8 Weeks for 6 Occurrences starting 01/16/2024 until 01/15/2025 End: 04-28-2024 Aspartate aminotransferase [Enzymatic activity/volume] in Serum or Plasma AST Lab Routine Rheumatoid arthritis involving multiple sites with positive rheumatoid factor Abnormal ANCA test Adalimumab (Humira) long-term use Alkaline phosphatase elevation CRP elevated Elevated TSH 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 FDC current use of systemic steroids Long-term use of high-risk medication 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, custodial, current use Rheumatoid factor positive Vitamin D deficiency Hypothyroidism, unspecified type Osteoarthritis of carpometacarpal (CMC) joint of both thumbs Primary osteoarthritis of both hands Primary osteoarthritis of both wrists Normochromic normocytic anemia Every 8 Weeks for 6 Occurrences starting 04/28/2023 until 04/28/2024 [facility] Comment on above: Every 8 Weeks for 6 Occurrences starting 04/28/2023 until 04/28/2024 End: 09-11-2024 Aspartate aminotransferase [Enzymatic activity/volume] in Serum or Plasma AST Lab Routine Rheumatoid arthritis involving multiple sites with positive rheumatoid factor Rheumatoid factor positive 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, long term 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, current use Long-term use of high-risk medication Infliximab (Remicade) long-term use 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 H/O total shoulder replacement, right CRP elevated Abnormal ANCA test Primary osteoarthritis of both wrists Primary osteoarthritis of both hands Osteoarthritis of carpometacarpal (CMC) joint of both thumbs Every 8 Weeks for 6 Occurrences starting 09/12/2023 until 09/11/2024 [facility] Comment on above: Every 8 Weeks for 6 Occurrences starting 09/12/2023 until 09/11/2024 End: 01-15-2025 Aspartate aminotransferase [Enzymatic activity/volume] in Serum or Plasma AST Lab Routine Rheumatoid arthritis involving multiple sites with positive rheumatoid factor Abnormal ANCA test CRP elevated H/O total shoulder replacement, right 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 FDC current use of systemic steroids Long-term use of high-risk medication 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, custodial, current use Rheumatoid factor positive Visit for monitoring Actemra therapy Osteoarthritis of carpometacarpal (CMC) joint of both thumbs Primary osteoarthritis of both hands Primary osteoarthritis of both wrists Every 8 Weeks for 6 Occurrences starting 01/16/2024 until 01/15/2025 [facility] Comment on above: Every 8 Weeks for 6 Occurrences starting 01/16/2024 until 01/15/2025 End: 04-28-2024 C-reactive protein C REACTIVE PROTEIN Lab Routine Rheumatoid arthritis involving multiple sites with positive rheumatoid factor Abnormal ANCA test Adalimumab (Humira) long-term use Alkaline phosphatase elevation CRP elevated Elevated TSH 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 FDC current use of systemic steroids Long-term use of high-risk medication 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, long term 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, current use Rheumatoid factor positive Vitamin D deficiency Hypothyroidism, unspecified type Osteoarthritis of carpometacarpal (CMC) joint of both thumbs Primary osteoarthritis of both hands Primary osteoarthritis of both wrists Normochromic normocytic anemia Every 8 Weeks for 6 Occurrences starting 04/28/2023 until 04/28/2024 [facility] Comment on above: Every 8 Weeks for 6 Occurrences starting 04/28/2023 until 04/28/2024 End: 09-11-2024 C-reactive protein C REACTIVE PROTEIN Lab Routine Rheumatoid arthritis involving multiple sites with positive rheumatoid factor Rheumatoid factor positive 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, custodial, current use Long-term use of high-risk medication Infliximab (Remicade) long-term use 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 H/O total shoulder replacement, right CRP elevated Abnormal ANCA test Primary osteoarthritis of both wrists Primary osteoarthritis of both hands Osteoarthritis of carpometacarpal (CMC) joint of both thumbs Every 8 Weeks for 6 Occurrences starting 09/12/2023 until 09/11/2024 [facility] Comment on above: Every 8 Weeks for 6 Occurrences starting 09/12/2023 until 09/11/2024 End: 01-15-2025 C-reactive protein C REACTIVE PROTEIN Lab Routine Rheumatoid arthritis involving multiple sites with positive rheumatoid factor Abnormal ANCA test CRP elevated H/O total shoulder replacement, right 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 Long-term use of high-risk medication 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, long term 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, current use Rheumatoid factor positive Visit for monitoring Actemra therapy Osteoarthritis of carpometacarpal (CMC) joint of both thumbs Primary osteoarthritis of both hands Primary osteoarthritis of both wrists Every 8 Weeks for 6 Occurrences starting 01/16/2024 until 01/15/2025 [facility] Comment on above: Every 8 Weeks for 6 Occurrences starting 01/16/2024 until 01/15/2025 End: 04-28-2024 Complete blood count with white cell differential, automated CBC, EDIF, PLATELET Lab Routine Rheumatoid arthritis involving multiple sites with positive rheumatoid factor Abnormal ANCA test Adalimumab (Humira) long-term use Alkaline phosphatase elevation CRP elevated Elevated TSH 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 FDC current use of systemic steroids Long-term use of high-risk medication 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, long term 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, current use Rheumatoid factor positive Vitamin D deficiency Hypothyroidism, unspecified type Osteoarthritis of carpometacarpal (CMC) joint of both thumbs Primary osteoarthritis of both hands Primary osteoarthritis of both wrists Normochromic normocytic anemia Every 8 Weeks for 6 Occurrences starting 04/28/2023 until 04/28/2024 [facility] Comment on above: Every 8 Weeks for 6 Occurrences starting 04/28/2023 until 04/28/2024 End: 09-11-2024 Complete blood count with white cell differential, automated CBC, EDIF, PLATELET Lab Routine Rheumatoid arthritis involving multiple sites with positive rheumatoid factor Rheumatoid factor positive 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, long term 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, current use Long-term use of high-risk medication Infliximab (Remicade) long-term use 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 H/O total shoulder replacement, right CRP elevated Abnormal ANCA test Primary osteoarthritis of both wrists Primary osteoarthritis of both hands Osteoarthritis of carpometacarpal (CMC) joint of both thumbs Every 8 Weeks for 6 Occurrences starting 09/12/2023 until 09/11/2024 [facility] Eligible [facility] Comment on above: Every 8 Weeks for 6 Occurrences starting 09/12/2023 until 09/11/2024 End: 01-15-2025 Complete blood count with white cell differential, automated CBC, EDIF, PLATELET Lab Routine Rheumatoid arthritis involving multiple sites with positive rheumatoid factor Abnormal ANCA test CRP elevated H/O total shoulder replacement, right 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 FDC current use of systemic steroids Long-term use of high-risk medication 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, custodial, current use Rheumatoid factor positive Visit for monitoring Actemra therapy Osteoarthritis of carpometacarpal (CMC) joint of both thumbs Primary osteoarthritis of both hands Primary osteoarthritis of both wrists Every 8 Weeks for 6 Occurrences starting 01/16/2024 until 01/15/2025 [facility] Comment on above: Every 8 Weeks for 6 Occurrences starting 01/16/2024 until 01/15/2025 End: 04-28-2024 Creatinine [Mass/volume] in Serum or Plasma CREATININE SERUM Lab Routine Rheumatoid arthritis involving multiple sites with positive rheumatoid factor Abnormal ANCA test Adalimumab (Humira) long-term use Alkaline phosphatase elevation CRP elevated Elevated TSH 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 Long-term use of high-risk medication 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, long term 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, current use Rheumatoid factor positive Vitamin D deficiency Hypothyroidism, unspecified type Osteoarthritis of carpometacarpal (CMC) joint of both thumbs Primary osteoarthritis of both hands Primary osteoarthritis of both wrists Normochromic normocytic anemia Every 8 Weeks for 6 Occurrences starting 04/28/2023 until 04/28/2024 [facility] Comment on above: Every 8 Weeks for 6 Occurrences starting 04/28/2023 until 04/28/2024 End: 09-11-2024 Creatinine [Mass/volume] in Serum or Plasma CREATININE SERUM Lab Routine Rheumatoid arthritis involving multiple sites with positive rheumatoid factor Rheumatoid factor positive 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, long term 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, current use Long-term use of high-risk medication Infliximab (Remicade) long-term use 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 H/O total shoulder replacement, right CRP elevated Abnormal ANCA test Primary osteoarthritis of both wrists Primary osteoarthritis of both hands Osteoarthritis of carpometacarpal (CMC) joint of both thumbs Every 8 Weeks for 6 Occurrences starting 09/12/2023 until 09/11/2024 [facility] Comment on above: Every 8 Weeks for 6 Occurrences starting 09/12/2023 until 09/11/2024 End: 01-15-2025 Creatinine [Mass/volume] in Serum or Plasma CREATININE SERUM Lab Routine Rheumatoid arthritis involving multiple sites with positive rheumatoid factor Abnormal ANCA test CRP elevated H/O total shoulder replacement, right 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 Long-term use of high-risk medication 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, long term 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, current use Rheumatoid factor positive Visit for monitoring Actemra therapy Osteoarthritis of carpometacarpal (CMC) joint of both thumbs Primary osteoarthritis of both hands Primary osteoarthritis of both wrists Every 8 Weeks for 6 Occurrences starting 01/16/2024 until 01/15/2025 [facility] Comment on above: Every 8 Weeks for 6 Occurrences starting 01/16/2024 until 01/15/2025 End: 04-28-2024 SEDIMENTATION RATE, AUTOMATED SEDIMENTATION RATE, AUTOMATED Lab Routine Rheumatoid arthritis involving multiple sites with positive rheumatoid factor Abnormal ANCA test Adalimumab (Humira) long-term use Alkaline phosphatase elevation CRP elevated Elevated TSH 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 Long-term use of high-risk medication 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, custodial, current use Rheumatoid factor positive Vitamin D deficiency Hypothyroidism, unspecified type Osteoarthritis of carpometacarpal (CMC) joint of both thumbs Primary osteoarthritis of both hands Primary osteoarthritis of both wrists Normochromic normocytic anemia Every 8 Weeks for 6 Occurrences starting 04/28/2023 until 04/28/2024 [facility] Comment on above: Every 8 Weeks for 6 Occurrences starting 04/28/2023 until 04/28/2024 End: 09-11-2024 SEDIMENTATION RATE, AUTOMATED SEDIMENTATION RATE, AUTOMATED Lab Routine Rheumatoid arthritis involving multiple sites with positive rheumatoid factor Rheumatoid factor positive 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, long term 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, current use Long-term use of high-risk medication Infliximab (Remicade) long-term use 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 H/O total shoulder replacement, right CRP elevated Abnormal ANCA test Primary osteoarthritis of both wrists Primary osteoarthritis of both hands Osteoarthritis of carpometacarpal (CMC) joint of both thumbs Every 8 Weeks for 6 Occurrences starting 09/12/2023 until 09/11/2024 [facility] Comment on above: Every 8 Weeks for 6 Occurrences starting 09/12/2023 until 09/11/2024 End: 01-15-2025 SEDIMENTATION RATE, AUTOMATED SEDIMENTATION RATE, AUTOMATED Lab Routine Rheumatoid arthritis involving multiple sites with positive rheumatoid factor Abnormal ANCA test CRP elevated H/O total shoulder replacement, right 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, DO Work Phone: [facility] Payers Date Payer Category Payer Medicare MEDICARE MEDICAR E A AND B [id number] 2022-Present [address] [place] [address] [id number] 2022 Unknown [id number] 2022 Private Health Insurance [id number] 2017 Medicare [id number] 1950 Unknown [id number] 2.16.840.1.770672.3.579. 2.1069 1952 Unknown [id number] 2.16.840.1.697555.3.579. 2.983 1952 Unknown [id number] 2.16.840.1.609780.3.579. 2.983 1952 Unknown [id number] 2.16.840.1.671762.3.579. 2.983 1952 Unknown [id number] 2.16.840.1.308643.3.579. 2.983 1952 Unknown [id number] 2.16.840.1.982845.3.579. 2.983 1952 Unknown [id number] 2.16.840.1.207853.3.579. 2.1245 1952 Unknown [id number] 2.16.840.1.579585.3.579. 2.1245 1952 Unknown [id number] 2.16.840.1.750129.3.579. 2.983 1952 Unknown [id number] 2.16.840.1.081565.3.579. 2.983 1952 Unknown [id number] 2.16.840.1.771904.3.579. 2.983 1952 Unknown [id number] 2.16.840.1.973614.3.579. 2.983 1952 Unknown [id number] 2.16.840.1.038715.3.579. 2.983 1952 Unknown [id number] 2.16.840.1.364691.3.579. 2.983 1952 Unknown [id number] 2.16.840.1.717645.3.579. 2.98 Unknown [id number] Social History Date Type Detail Facility Start: 12-04-2022 Tobacco smoking stat [facility] Ex-smoker [facility] History of tobacco use Current smoker [facility] History of tobacco use Cigarette Smoker [facility] Start: 12-04-2022 Tobacco use and exposure Smokeless tobacco non-user [facility] Start: 07-01-2022 End: 01-16-2024 History of Social function [facility] Start: 07-01-2022 End: 01-16-2024 Tobacco use panel [facility] Start: 1950 Sex Assigned At Not on file A [facility] Medical Equipment Procedure Code Equipment Code Equipment Origin al Text Equipment Identifier Dates USE WITH INSULIN PENS FOUR TIMES DAILY [id number] Start: 11-29-2022 Clinical Notes 12-04-2022 to 03-26-2024 [...] understanding of instructions. documented in this encounter [facility] 02-27-2024 History of Presen t illness [...] Pt. Discharged ambulatory. documented in this encounter [facility] 01-30-2024 History of Presen t illness Narrative 1300: Patient arrives to clinic ambulatory for Actemra IV. Accompanied by spouse. 1335: IV inserted into right FA x 2 attempts. 1522: Infusion completed-no adverse reaction noted-IV DC'D-AVS printed. Patient leaves clinic ambulatory accompanied by . documented in this encounter [facility] 01-16-2024 History of Presen t illness Narrative [...] Weakness present. Gait: Gait abnormal. 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 Psychiatric: Mood and Affect: Mood normal. Behavior: Behavior normal. Thought Content: Thought content normal. Judgment: Judgment normal. Neurological Exam Mental Status Alert. Oriented to person, place, and time. Cranial Nerves CN II: Vision test: Glasses OS exopthalmic. CN III, IV, : Extraocular movements intact bilaterally. Pupils equal round and reactive to light bilaterally. Gait Abnormal gait. 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 . Assessment and Plan Encounter Diagnoses Name Primary? 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 [facility] History of Presen t illness Narrative [...] Weakness present. Gait: Gait abnormal. 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 Psychiatric: Mood and Affect: Mood normal. Behavior: Behavior normal. Thought Content: Thought content normal. Judgment: Judgment normal. Neurological Exam Mental Status Alert. Oriented to person, place, and time. Cranial Nerves CN II: Vision test: Glasses OS exopthalmic. CN III, IV, : Extraocular movements intact bilaterally. Pupils equal round and reactive to light bilaterally. Gait Abnormal gait. 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 . Assessment and Plan Encounter Diagnoses Name Primary? Rheumatoid arthritis involving multiple sites with positive rheumatoid factor Yes Rheumatoid factor positive 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, custodial, current use Long-term use of high-risk medication [...] Alk phos was elevated at 179 10. FDC side effect of steroids gone over with [...] 2 months thereafter documented in this encounter [facility] 04-28-2023 History of Presen t illness [...] Weakness present. Gait: Gait abnormal. 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 Psychiatric: Mood and Affect: Mood normal. Behavior: Behavior normal. Thought Content: Thought content normal. Judgment: Judgment normal. Neurological Exam Mental Status Alert. Oriented to person, place, and time. Cranial Nerves CN II: Vision test: Glasses OS exopthalmic. CN III, IV, : Extraocular movements intact bilaterally. Pupils equal round and reactive to light bilaterally. Gait Abnormal gait. 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 . Left Knee Exam Other Effusion: effusion present Assessment and Plan Encounter Diagnoses Name Primary? Rheumatoid arthritis involving multiple sites with positive rheumatoid factor Yes Abnormal ANCA test Adalimumab (Humira) long-term use Alkaline phosphatase elevation CRP elevated Elevated TSH 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 FDC current use of systemic steroids Long-term use of high-risk medication 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, custodial, current use Rheumatoid factor positive Vitamin D [...] in 4 months documented in this encounter [facility] 12-04-2022 History of Presen t illness [...] Weakness present. Gait: Gait abnormal. 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 Psychiatric: Mood and Affect: Mood normal. Behavior: Behavior normal. Thought Content: Thought content normal. Judgment: Judgment normal. Neurological Exam Mental Status Alert. Oriented to person, place, and time. Cranial Nerves CN II: Vision test: Glasses OS exopthalmic. CN III, IV, : Extraocular movements intact bilaterally. Pupils equal round and reactive to light bilaterally. Gait Abnormal gait. 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 . Left Knee Exam Other Effusion: effusion present Assessment and Plan Encounter Diagnoses Name Primary? Rheumatoid arthritis involving multiple sites with positive rheumatoid factor Yes Adalimumab (Humira) long-term use Alkaline phosphatase elevation CRP elevated Fatigue, unspecified type 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 FDC current use of systemic steroids Long-term use of high-risk medication 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, long term 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, current use Rheumatoid factor positive Primary hypertension [...] supply on medication documented in this encounter [facility] Evaluation note Diagnosis Rheumatoid arthritis involving multiple sites with positive rheumatoid factor- Primary Adalimumab (Humira) long-term use Alkaline phosphatase elevation Other nonspecific abnormal serum enzyme levels CRP elevated Elevated C-reactive protein (CRP) Fatigue, unspecified type 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 Personal history of arthritis FDC current use of systemic steroids Encounter for long-term (current) use of steroids Long-term use of high-risk medication 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, long term 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, current use Encounter for long-term (current) use [...] other viral diseases [facility] Rheumatoid arthritis involving multiple [...] specified diseases of blood and blood-forming organs FDC current use of systemic steroids Encounter for long-term (current) use of steroids Long-term use of high-risk medication 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, long term 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, current use Encounter for long-term (current) use of other medications Rheumatoid factor positive Other and unspecified nonspecific immunological findings Vitamin D deficiency Unspecified vitamin D deficiency Hypothyroidism, unspecified type Osteoarthritis of carpometacarpal (CMC) joint of both thumbs Primary osteoarthritis of both hands Primary osteoarthritis of both wrists Normochromic normocytic anemia Anemia, unspecified [facility] Rheumatoid arthritis involving multiple sites with positive rheumatoid factor- Primary Rheumatoid factor positive Other and unspecified nonspecific immunological findings 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, long term 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, current use Encounter for long-term (current) use [...] of both thumbs [facility] Diagnosis Rheumatoid arthritis involving multiple sites with positive rheumatoid factor- Primary [facility] Rheumatoid arthritis involving multiple sites with positive rheumatoid factor- Primary Abnormal ANCA test Other and unspecified nonspecific immunological findings CRP elevated Elevated C-reactive protein (CRP) H/O total shoulder replacement, right 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 Encounter for long-term (current) use of steroids Long-term use of high-risk medication 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, custodial, current use Encounter for long-term (current) use of other medications Rheumatoid factor positive Other and unspecified nonspecific immunological findings Visit for monitoring Actemra therapy Encounter for therapeutic drug monitoring Osteoarthritis of carpometacarpal (CMC) joint of both thumbs Primary osteoarthritis of both hands Primary osteoarthritis of both wrists [facility] Rheumatoid arthritis involving multiple sites with positive rheumatoid factor- Primary [facility] Diagnosis Rheumatoid arthritis involving multiple sites with positive rheumatoid factor- Primary [facility] Diagnosis Rheumatoid arthritis involving multiple sites with positive rheumatoid factor- Primary [facility] Consultation (Routine) - New Request Specialty Diagnoses / Procedures Referred By Antoinette ma Referred To Contact Chemotherapy Diagnoses Rheumatoid arthritis involving multiple sites with positive rheumatoid factor Rheumatoid factor positive 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, custodial, current use Long-term use of high-risk medication Infliximab (Remicade) long-term use 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 H/O total shoulder replacement, right CRP elevated Abnormal ANCA test Primary osteoarthritis of both wrists Primary osteoarthritis of both hands Osteoarthritis of carpometacarpal (CMC) joint of both thumbs Sidney Rose Jr., DO [address] [place] [id number] [address] Referral ID Status Reason Start Date Expiration Date V isits Requested Visits Authorized [id number] New Request 09/12/2023 10/06/2024 1 1 [facility] Summary Purpose Family History No Family [...] Fatigue, unspecified type 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 Long-term use of high-risk medication 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, long term 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, current use Rheumatoid factor positive Primary hypertension Hypoalbuminemia Hyponatremia Hypothyroidism, unspecified type Type 1 diabetes mellitus with hyperglycemia Pain and swelling of left knee Bilateral hand pain Bilateral wrist pain Disorder of bone and cartilage Primary osteoarthritis of both hands Normochromic normocytic anemia Sidney Rose Jr., DO [address] [place] [address] Referral ID Status Reason Start Date Expiration Date V isits Requested Visits Authorized [id number] New Request 12/04/2022 12/29/2023 1 1 Scheduling Instructions . 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 FDC current use of systemic steroids Long-term use of high-risk medication 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, long term 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, current use Rheumatoid factor positive Primary hypertension Hypoalbuminemia Hyponatremia Hypothyroidism, unspecified type Type 1 diabetes mellitus with hyperglycemia Pain and swelling of left knee Bilateral hand pain Bilateral wrist pain Disorder of bone and cartilage Primary osteoarthritis of both hands Normochromic normocytic anemia Sidney Rose Jr., DO [address] [place] [address] Referral ID Status Reason Start Date Expiration Date V isits Requested Visits Authorized [id number] New Request 12/04/2022 12/29/2023 1 1 Specialty Diagnoses / Procedures Referred By Antoinette ma Referred To Contact Diagnoses Rheumatoid arthritis involving multiple sites with positive rheumatoid factor Abnormal ANCA test CRP elevated H/O total shoulder replacement, right 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 FDC current use of systemic steroids Long-term use of high-risk medication 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, custodial, current use Rheumatoid factor positive Visit for monitoring Actemra therapy Osteoarthritis of carpometacarpal (CMC) joint of both thumbs Primary osteoarthritis of both hands Primary osteoarthritis of both wrists Sidney Rose Jr., DO [address] [place] [address] Referral ID Status Reason Start Date Expiration Date V isits Requested Visits Authorized [id number] Pending Review 1 1 Specialty Diagnoses / Procedures Referred By Antoinette ma Referred To Contact Chemotherapy Diagnoses Rheumatoid arthritis involving multiple sites with positive rheumatoid factor Abnormal ANCA test CRP elevated H/O total shoulder replacement, right 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 FDC current use of systemic steroids Long-term use of high-risk medication 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, long term 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, current use Rheumatoid factor positive Visit for monitoring Actemra therapy Osteoarthritis of carpometacarpal (CMC) joint of both thumbs Primary osteoarthritis of both hands Primary osteoarthritis of both wrists Sidney Rose Jr., [address] [place] [address] [facility] [address] [place], [place] [id number] Referral ID Status Reason Start Date Expiration Date V isits Requested Visits Authorized [id number] Authorized 01/16/2024 02/09/2025 1 1 Additional Source Comments INFORMATION SOURCE (unrecogn ized section and content) DATE CREATED AUTHOR 04/12/2022 [facility] DATE CREATED AUTHOR AUTHOR'S ORGANIZ ATION 06/11/2022 [facility] DATE CREATED AUTHOR AUTHOR'S ORGANIZ ATION 01/18/2024 [facility] DATE CREATED AUTHOR AUTHOR'S ORGANIZ ATION 01/21/2024 [facility] DATE CREATED AUTHOR AUTHOR'S ORGANIZ ATION 03/29/2024 [facility] Reason for Visit (unrecogniz ed section and content) Reason Comments Infusion Visit Actemra IV Specialty Diagnoses / Procedures Referred By Antoinette ma Referred To Contact Diagnoses Rheumatoid arthritis involving multiple sites with positive rheumatoid factor Sidney Rose Jr., DO [address] [place] [address] Referral ID Status Reason Start Date Expiration Date V isits Requested Visits Authorized [id number] New Request 01/16/2024 02/09/2025 1 1 Reason [...] Expiration Date V isits Requested Visits Authorized [id number] New Request 09/12/2023 10/06/2024 1 1 Reason Comments Follow-up Patient is here toda y for her 4 Month Follow-up. Patient states she had one infusion then stopped because it caused dizziness and she did not feel good. Patient states she is not having joint pain. Reason Comments Infusion Visit Actemra Care Teams (unrecognized sec tion and content) Angledozer Operator Relationship Specialty Start Date End Date Tavares BravoDO [address] [address] PCP - General Family Medicine 12/04/22 Angledozer Operator Relationship Specialty Start Date End Date LawrenceTavares schroederDO [address] [place] [address] PCP - General Family Medicine 12/04/22 Angledozer Operator Relationship Specialty Start Date End Date LawrenceTavares hutchisonDO [address] [phone] PCP - General Family Medicine 12/04/22 Angledozer Operator Relationship Specialty Start Date End Date Tavares Bravo DO [address] [place] [phone] PCP - General Family Medicine 12/04/22 Angledozer Operator Relationship Specialty Start Date End Date Tavares Bravo DO [address] [place] [address] PCP - General Family Medicine 12/04/22 Angledozer Operator Relationship Specialty Start Date End Date Tavares Bravo DO [address] [place] [address] PCP - General Family Medicine 12/04/22 Angledozer Operator Relationship Specialty Start Date End Date Tavares Bravo DO [id number] [place] [id number] PCP - General Family Medicine 12/04/22 [...] BE BASED ON THE PRIMARY CLINICAL RECORDS. [facility] [employer] provides no warranty or guarantee of the accuracy or completeness of information in this document.
== END 2024-04-13 16:45 | disposition home or self-care (01) | DRG 310 ==
LOC: ED 14:51 → PCU 16:02
PROVIDERS: Emergency Provider Emergency Medicine; PCP Family Medicine; Visit Provider Internal Medicine
DX: I48.91 Unspecified atrial fibrillation (principal); E03.9 Hypothyroidism, unspecified; E11.9 Type 2 diabetes mellitus without complications; M06.9 Rheumatoid arthritis, unspecified; I10 Essential (primary) hypertension; Z79.4 Long term (current) use of insulin; Z79.890 Hormone replacement therapy; Z79.899 Other long term (current) drug therapy; Z87.891 Personal history of nicotine dependence
CPT/HCPCS: 36415; 71045; 80048; 80076; 82962; 83735; 84443; 84484; 85025; 85610; 85730; 93005; 93306; 99285; Q9957; A4216; C8929

== ENCOUNTER → 2024-04-22 | Outpatient (CLI) | payer MEDICARE, OTHER, SELFPAY ==
[2024-04-22 13:32] LABS: PTHIN 28.1 pg/mL (18.4-80.1)
[2024-04-22 13:37] LABS: Vitamin D,25 Hydroxy 42.2 ng/mL
[2024-04-22 13:45] LABS: ALB/GLOB Ratio 0.8 RATIO (0.9-2.4); AST(SGOT) 15 U/L (15-37); Alanine Aminotransfer ALT/SGPT 22 U/L (13-56); Albumin, Serum 3.8 g/dL (3.2-5.0); Alkaline Phosphatase 149 U/L (45-117); Anion Gap 7 (5-15); BUN 17 mg/dL (7-18); BUN/Creat Ratio 25.8 RATIO (10-20); Chloride 102 mmol/L (98-107); Creatinine, Serum 0.66 mg/dL (0.55-1.02); EST Glomerular Filtration Rate 94 mL/min (>60); Est Glom Filt Rate - Afr Amer 114 mL/min (>60); Globulin 4.7 g/dL (2.2-4.2); Glucose 159 mg/dL (74-106); Potassium 3.8 mmol/L (3.5-5.1); Protein, Total 8.5 g/dL (6.4-8.2); Sodium Level 136 mmol/L (136-145)
== END | disposition home or self-care (01) ==
PROVIDERS: PCP Family Medicine; Referring Provider Internal Medicine Endocrinology, Diabetes & Metabolism; Visit Provider Internal Medicine Endocrinology, Diabetes & Metabolism
DX: E11.65 Type 2 diabetes mellitus with hyperglycemia (principal); E03.9 Hypothyroidism, unspecified
CPT/HCPCS: 36415; 80053; 82306; 83970; 84439; 84443

== ENCOUNTER 2024-05-11 01:49 | Observation (INO) | payer MEDICARE, OTHER, SELFPAY ==
[2024-05-11] VITALS (11 sets, daily range): BP systolic 98–158; BP diastolic 55–76; PULSE 72–118; RESP 16–22; TEMP 36.8–38.5; O2SAT 88–97; BMI 21.9; BMI 19.3
--- NOTE | 2024-05-11 02:08 | RAD_ITS ---
INDICATION: cough EXAMINATION/TECHNIQUE: X-RAY - XR Chest 2 Views COMPARISON: Prior study dated: 04/12/2024 FINDINGS: LINES/DEVICES: None. LUNGS: Fairly diffuse interstitial infiltrates bilaterally similar to the prior. Opacity at the left lung base is increased compared to the prior. No consolidation. No pneumothorax. MEDIASTINUM: Unremarkable. CARDIAC SILHOUETTE: Not enlarged. BONES AND SOFT TISSUES: No acute abnormalities. Surgical hardware in the right shoulder RAD/Chest PA and Lateral IMPRESSION: Left basilar infiltrate likely pneumonia superimposed on chronic interstitial disease. Electronically Signed: Ethel Jimenez MD at 3:29 EST ,
[2024-05-11 02:18] LABS: Bedside Glucose 336 mg/dL (74-106)
[2024-05-11] MEDS: Acetaminophen 500 MG Tablet 1000 MG PO (02:27)
[2024-05-11] MEDS: 0.9% Normal Saline (500mL Bag) 500 ML 999 ML IV (02:31)
[2024-05-11 02:36] LABS: Mucous, Urine 0 SEEN /hpf (<or=2+)
[2024-05-11 02:38] LABS: Color, Urine Yellow (Yellow); Glucose, Dipstick 1000 mg/dl (Normal); Leukocyte Esterase-Dipstick 500 /ul (Negative); Nitrite-Dipstick Positive (Negative); Occult Blood-Urine 25 /ul (Negative); Protein-Dipstick 30 mg/dl (Negative); Urine Bilirubin Dipstick Negative (Negative); Urine Clarity Cloudy (Clear); Urine Urobilinogen Normal (Normal)
[2024-05-11 02:42] LABS: Anion Gap 11 (5-15); BUN 18 mg/dL (7-18); BUN/Creat Ratio 29.6 RATIO (10-20); Calcium,Total 8.6 mg/dL (8.5-10.1); Chloride 101 mmol/L (98-107); Creatinine, Serum 0.61 mg/dL (0.55-1.02); EST Glomerular Filtration Rate 103 mL/min (>60); Est Glom Filt Rate - Afr Amer 124 mL/min (>60); Glucose 346 mg/dL (74-106); Magnesium 1.5 mg/dL (1.6-2.6); Potassium 3.7 mmol/L (3.5-5.1); Sodium Level 132 mmol/L (136-145)
[2024-05-11 02:43] LABS: Absolute Lymphocyte Count 0.34 X10^3/uL (0.83-4.51); Absolute Neutrophil Count 6.5 X10^3/uL (2.0-7.7); Basophil# 0.05 X10^3/uL; Basophil% 0.7 % (0-1); Eosinophil# 0.02 X10^3/uL; Eosinophils% 0.3 % (0-5); Hematocrit 31.3 % (37-47); Hemoglobin 10.3 g/dL (12.0-15.0); Lymphocyte # 0.34 X10^3/ul (0.83-4.51); Lymphocyte % 4.6 % (19-41); Mean Corp Hgb Conc 32.9 g/dL (32-36); Mean Corpuscular Hgb 28.7 pg (27.0-32.0); Mean Corpuscular Volume 87.2 fL (81-99); Monocyte# 0.48 X10^3/uL; Monocyte% 6.5 % (0-10); NRBC Flagged by Analyzer 0 % (0-5); Neutrophil # 6.45 X10^3/uL (2.7-7.7); Neutrophil % 87.2 % (47-70); POSITIVE COUNT YES; POSITIVE DIFFERENTIAL YES; Platelet Count 87 K/mm3 (150-450); RBC Distribution Width CV 15.8 % (11.6-14.6); Red Blood Count 3.59 M/mm3 (4.2-5.4); White Blood Count 7.4 K/mm3 (4.4-11.0)
[2024-05-11 02:44] LABS: Differential Indicated SCAN CRITERIA MET
[2024-05-11 02:49] LABS: BNP,B-Type NATRIURETIC PEPTIDE 109.9 pg/mL (0-100)
--- NOTE | 2024-05-11 02:50 | EX.ED.DYSGE1 ---
HPI History of Present Illness Chief Complaint: General Illness Informant: patient and EMS Narrative Narrative: Patient is a 73-year-old female from home with past medical history of hypertension hypothyroidism insulin-dependent diabetes as well as paroxysmal atrial fibrillation. Patient also has history of wound arthritis and is immunosuppressed on methotrexate. The patient was seen at the end of March secondary to heart palpitations and found to be in A-fib with RVR. At that time she was admitted and placed on Eliquis. She states she has been doing well but this evening was sitting at rest when she suddenly felt her heart start racing and this made her feel unwell. Therefore EMS was called and she was brought to the hospital for evaluation. Upon arrival the patient states that the racing sensation has resolved. She does note she has had mild congestion and cough but otherwise states that there is no associated chest pain nausea vomiting abdominal pain dysuria or diaphoresis [facility] Medical History Chronic anemia Rheumatoid arthritis Diabetes mellitus, type 2 Former tobacco use Hypothyroidism HTN (hypertension) Home Medications ?Medication ?Instructions ?Recorded ?Last Taken ?Type losartan 25 mg tablet 25 mg PO DAILY BLOOD PRESSURE 03/15/22 04/11/24 History magnesium oxide 400 mg PO DAILY SUPPLEMENT 03/15/22 04/12/24 History methotrexate sodium 2.5 mg tablet 12.5 mg PO QWEEK inflammation 03/15/22 04/10/24 History folic acid 1 mg tablet 1 mg PO DAILY 10/08/23 04/12/24 History insulin lispro 100 unit/mL See Protocol subcut ACHS #0 mL 10/13/23 Unknown Rx subcutaneous pen (Humalog KwikPen (U-100) Insulin) acetaminophen 500 mg tablet 1,000 mg PO Q8 PRN fever or pain 04/12/24 Unknown History 1-10 alendronate 70 mg tablet 70 mg PO QWEEK bone health 04/12/24 04/10/24 History insulin glargine 100 unit/mL (3 16 unit subcut BID 04/12/24 04/12/24 History mL) subcutaneous pen (Lantus Solostar U-100 Insulin) insulin lispro 100 unit/mL 15 unit subcut TID 04/12/24 04/12/24 History subcutaneous pen (Humalog KwikPen (U-100) Insulin) levothyroxine 150 mcg tablet 150 mcg PO DAILY 04/12/24 04/12/24 History apixaban 5 mg tablet (Eliquis) 5 mg PO BID #60 tabs 04/13/24 Unknown Rx metoprolol tartrate 50 mg tablet 50 mg PO BID #60 tabs 04/13/24 Unknown Rx Allergy/AdvReac Type Severity Reaction Status Date / Time egg (eggs) AdvReac Vomiting Verified 05/11/24 01:50 Family History Mother Diabetes Heart disease Father Diabetes Cancer Throat cancer Surgical History s/p right shoulder surgery H/O: Social History household members: spouse Smoking Status: Former smoker alcohol intake: never substance use type: does not use ROS ROS ED Constitutional Constitutional ED: Denies chills or fever(s) Eyes Eyes: Denies change in vision ENT ENT ED: Reports rhinorrhea; Denies sore throat Cardiovascular Cardiovascular: Reports palpitations and racing heartbeat; Denies chest pain Respiratory/Chest Respiratory/Chest: Reports cough; Denies dyspnea Gastrointestinal Gastrointestinal: Denies abdominal pain, diarrhea, nausea or vomiting Genitourinary Genitourinary ED: Denies dysuria Musculoskeletal Musculoskeletal: Denies myalgias Integumentary Denies rash Neurologic Neurologic: Denies headache(s) Hematologic/Lymphatic Hematologic/Lymphatic: Reports easy bleeding and easy bruising EXAM Physical Exam Const Vital Signs: 05/11/24 01:51 05/11/24 01:55 05/11/24 01:55 Temperature 101.3 F H 101.3 F H Temperature Source Oral Oral Pulse Rate 118 H 115 H Respiratory Rate 20 H 20 H Respiratory Effort Normal Respiratory Pattern Tachypnea Blood Pressure 158/76 H 158/76 H Blood Pressure Mean 103 103 Pulse Ox 88 93 Oxygen Delivery Method Room Air Nasal Cannula Oxygen Flow Rate (L/min) 2 05/11/24 02:55 05/11/24 03:50 Temperature 98.6 F 98.6 F Temperature Source Oral Oral Pulse Rate 104 H 97 Respiratory Rate 22 H 18 Respiratory Effort Respiratory Pattern Blood Pressure 140/67 H 124/66 H Blood Pressure Mean 91 85 Pulse Ox 97 95 Oxygen Delivery Method Nasal Cannula Nasal Cannula Oxygen Flow Rate (L/min) 2 2 Positive well nourished and well developed General Appearance ED: well developed; Negative for pallor HEENT HEENT Narrative: Cobblestoning is noted in the posterior pharynx consistent with sinus drainage but no airway edema or compromise No secondary findings to suggest infection Eyes PERRL and EOMs intact bilaterally General Eye ED: Negative for scleral icterus Neck supple and no JVD Neck Narrative: No nuchal rigidity or meningeal signs Resp Resp Narrative: Patient is tachypneic with diminished breath sounds throughout. Breath sounds have faint rhonchi in the bilateral lower lobes. No nasal flaring or retractions no accessory muscle use. Cardio regular rhythm Rate: tachycardic and other Other Details: Tachycardic rate with regular rhythm Radial and carotid pulses are equal and symmetric GI normal to inspection, nondistended, normoactive bowel sounds, non-tender, non-distended and no masses GI Narrative: No voluntary guarding or rigidity or pulsatile mass Auscultation: normoactive bowel sounds Palpation: soft Extremity normal to inspection Extremity Narrative: No asymmetric edema no pitting edema negative Homans' sign bilaterally Neuro oriented x3, CN's II-XII intact bilaterally and no sensory deficits noted Sensorium / Orientation: alert Motor Exam: strength 5/5 throughout Psych mental status grossly normal Skin no rashes or lesions noted General Skin Exam: Negative for jaundice or pallor MDM MDM MDM Narrative Medical decision making narrative: Patient arrived to the ER febrile to approximately 101 and with his heart rate was elevated. EKG confirmed with sinus tachycardia indicating that the elevated heart rate was most likely related to the fever and not breakthrough A-fib. Secondary to her fever and the fact she is hypoxic there is concern for pneumonia versus pleural effusion/volume overload versus UTI. There is also concern that she may be septic. Basic blood work was obtained. The patient does not have an elevated white blood cell count there is no left shift her lactic acid is normal she is not been hypotensive and does not show signs of shock and with these normal lab values and improvement of vitals after reduction of her fever she does not classify as sepsis. Therefore there is no need for 30 mL/kg fluid bolus or blood cultures. The patient was started on Rocephin secondary to a UTI and the urine was sent for culture. As she does have a history of mild immunosuppression from methotrexate I discussed the case with the hospitalist. He agrees that with both UTI and potential pneumonia as well as the fact she has mild hypoxia that she will need to be kept in the hospital for continued IV antibiotics and monitoring. He reports that he will add a second antibiotic to cover for improved lung infection when she reaches the floor. This plan of care was discussed with the patient who is agreeable to it and after her temperature was controlled with Tylenol her blood pressure heart rate and breathing rate all improved and she has remained hemodynamically stable History & Record Review Discussion w/independent historian: Patient Additional record(s) reviewed:: Prior inpatient record Lab Data Attestation: I reviewed the patient's lab results. Labs: Laboratory Results - last 24 hr 05/11/24 05/11/24 05/11/24 01:54 01:58 02:28 WBC RBC Hgb Hct MCV MCH MCHC RDW Std Deviation RDW Coeff of Mateus Plt Count MPV Immature Gran % (Auto) Neut % (Auto) Lymph % (Auto) [place] % (Auto) Eos % (Auto) Baso % (Auto) Absolute Neuts (auto) Absolute Lymphs (auto) Nucleated RBC % Differential Comment Platelet Estimate RBC Morphology Sodium 132 L Potassium 3.7 Chloride 101 Carbon Dioxide 20.0 L Anion Gap 11 BUN 18 Creatinine 0.61 Estim Creat Clear Calc 55.70 Est GFR (MDRD) Af Amer 124 Est GFR (MDRD) Non-Af 103 BUN/Creatinine Ratio 29.6 H Glucose 346 H Lactic Acid 1.2 Calcium 8.6 Magnesium 1.5 L B-Natriuretic Peptide 109.9 H Urine Color Yellow Urine Clarity Cloudy Urine pH 6.0 Ur Specific [place] 1.020 Urine Protein 30 H Urine Glucose (UA) 1000 H Urine Ketones 150 A* Urine Occult Blood 25 H Urine Nitrite Positive H Urine Bilirubin Negative Urine Urobilinogen Normal Ur Leukocyte Esterase 500 H Urine RBC 10-25 SEEN Urine WBC >100 SEEN Ur Squamous Epith Cells 5-10 SEEN Urine Bacteria 4+ Urine Mucus 0 SEEN POC Glucose 336 H 05/11/24 02:36 WBC 7.4 RBC 3.59 L Hgb 10.3 L Hct 31.3 L MCV 87.2 MCH 28.7 MCHC 32.9 RDW Std Deviation 50.0 H RDW Coeff of Mateus 15.8 H Plt Count 87 L MPV 13.0 H Immature Gran % (Auto) 0.700 Neut % (Auto) 87.2 H Lymph % (Auto) 4.6 L [place] % (Auto) 6.5 Eos % (Auto) 0.3 Baso % (Auto) 0.7 Absolute Neuts (auto) 6.5 Absolute Lymphs (auto) 0.34 L Nucleated RBC % 0 Differential Comment SCANNED Platelet Estimate MOD DEC RBC Morphology NORM C+C Sodium Potassium Chloride Carbon Dioxide Anion Gap BUN Creatinine Estim Creat Clear Calc Est GFR (MDRD) Af Amer Est GFR (MDRD) Non-Af BUN/Creatinine Ratio Glucose Lactic Acid Calcium Magnesium B-Natriuretic Peptide Urine Color Urine Clarity Urine pH Ur Specific [place] Urine Protein Urine Glucose (UA) Urine Ketones Urine Occult Blood Urine Nitrite Urine Bilirubin Urine Urobilinogen Ur Leukocyte Esterase Urine RBC Urine WBC Ur Squamous Epith Cells Urine Bacteria Urine Mucus POC Glucose Radiography Diagnostic Testing: Clinical Impression(s) from Imaging Studies Chest X-Ray 05/11/24 02:08 IMPRESSION: Left basilar infiltrate likely pneumonia superimposed on chronic interstitial disease. Electronically Signed: Ethel Jimenez MD at 3:29 EST , 2 view chest x-ray as interpreted by the emergency medicine physician reveals hazy opacity in left lower lobe concerning for developing pneumonia Discharge Plan Triage Chief Complaint: General Illness ED Provider: Mookie Parra Dx/Rx/DC Orders Clinical Impression: UTI (urinary tract infection), HTN (hypertension), Hypothyroidism, Rheumatoid arthritis, Left lower lobe pneumonia, Hypoxia, Pyrexia, Thrombocytopenia Prescriptions: No Action methotrexate sodium 2.5 mg tablet 12.5 mg PO QWEEK Patient Comments: TAKE 5 (FIVE) tablets BY MOUTH per week losartan 25 mg tablet 25 mg PO DAILY magnesium oxide 400 mg magnesium tablet 400 mg PO DAILY folic acid 1 mg tablet 1 mg PO DAILY insulin lispro [Humalog KwikPen Insulin] 100 unit/mL Insulin Pen See Protocol subcut ACHS Qty: 0 0RF Protocol: 3. Sliding Scale Insulin Med Dosing Condition: 150-189 mg/dl = 1 unit Condition: 190-229 mg/dl = 2 units Condition: 230-269 mg/dl = 3 units Condition: 270-309 mg/dl = 4 units Condition: 310-349 mg/dl = 5 units Condition: 350-399 mg/dl = 6 units Condition: 400-449 mg/dl = 7 units Condition: Greater than 449 call physician Protocol Text: - Use for Total Daily Dose of Insulin 37-55 units - Obsese, infected, or steroid patients MEDIUM DOSING ALGORITHIM insulin lispro [Humalog KwikPen Insulin] 100 unit/mL insulin pen 15 unit subcut TID Rx Instructions: Hold if glucose less than 130 mg/dl insulin glargine [Lantus Solostar U-100 Insulin] 100 unit/mL (3 mL) insulin pen 16 unit subcut BID alendronate 70 mg tablet 70 mg PO QWEEK Rx Instructions: Takes on Friday levothyroxine 150 mcg tablet 150 mcg PO DAILY acetaminophen 500 mg Tablet 1,000 mg PO Q8 PRN (Reason: fever or pain 1-10) metoprolol tartrate 50 mg Tablet 50 mg PO BID Qty: 60 0RF Eliquis 5 mg tablet 5 mg PO BID Qty: 60 0RF Primary Care Provider: Eric Bravo Referrals: Eric Bravo DO [Primary Care Provider] - Print Language: Lao Disposition Disposition: Acute Care Hospital [facility]
[2024-05-11 02:55] LABS: Ketone-Dipstick 150 mg/dl (Negative); White Blood Cells >100 SEEN /hpf (0-5)
[2024-05-11 02:56] LABS: Bacteria 4+ /hpf (None Seen); Red Blood Cells-Urine 10-25 SEEN /hpf (0-5); Squamous Epithelial Cells - UA 5-10 SEEN /hpf (5-10)
[2024-05-11 03:02] LABS: Lactic Acid 1.2 mmol/L (0.4-1.9)
[2024-05-11] MEDS: Ceftriaxone 1 GM/50 ML BAG IV (03:16)
[2024-05-11 03:30] LABS: Differential Comment SCANNED
[2024-05-11 03:31] LABS: Platelet Estimate MOD DEC (ADEQ); Red Cell Morphology NORM C+C NORMAL (NORM C&C)
--- NOTE | 2024-05-11 03:55 | PCM.HP.STD ---
HPI - General General Date of Admission: 05/11/24 Date of Service: 05/11/24 Chief Complaint: Palpitations and mild URI symptoms HPI Narrative DURAN DEVI, is a 73 F who presented to [facility] ED on 05/11/2024 with palpitations and mild URI symptoms. Patient was hospitalized here at the end of March for new onset A-fib with RVR. She was started on Lopressor and Eliquis during hospitalization. She has been doing well since discharge with no recurrence of palpitations. Earlier this evening patient was sitting at rest when she suddenly felt her heart racing and subsequently felt unwell, so she called EMS. Patient noted that the palpitations had resolved prior to her arriving to the ED. However on arrival here she was noted to have a fever of 101.3F and her oxygen saturation was in the high 80s on room air. Patient does not wear oxygen at home. On further questioning she does report a mild cough with congestion over the past several days. Denies any recent sick contacts. Chest x-ray showed a left basilar infiltrate consistent with pneumonia superimposed on chronic interstitial disease. UA showed 500 leukocyte esterase, positive nitrites, 4+ bacteria. Her blood sugar was elevated at 346 but labs were otherwise largely unremarkable. Given concern for community-acquired pneumonia with hypoxia and UTI, hospitalist was contacted for admission. I saw the patient at bedside in the ED. Patient was very pleasant. She was sitting up comfortably in bed, conversing normally, in no acute distress. She had a mild cough during our encounter but otherwise stated she was feeling fairly well. She denied any UTI type symptoms. She denied any shortness of breath at rest or with exertion. She lives at home with her and uses a 4 point walker for ambulation. States she has been at her normal activity level over the past few days. On chart review, her last few A1c values have been in the 11-12 range. She states she is been taking her insulin at home as prescribed and her sugars have been in the 200s to 300s consistently. She otherwise denies any acute pain or discomfort. No other acute concerns at this time. Will be admitted for further management. [facility] Medical History Chronic anemia Rheumatoid arthritis Diabetes mellitus, type 2 Former tobacco use Hypothyroidism HTN (hypertension) Home Medications ?Medication ?Instructions ?Recorded ?Last Taken ?Type losartan 25 mg tablet 25 mg PO DAILY BLOOD PRESSURE 03/15/22 04/11/24 History magnesium oxide 400 mg PO DAILY SUPPLEMENT 03/15/22 04/12/24 History methotrexate sodium 2.5 mg tablet 12.5 mg PO QWEEK inflammation 03/15/22 04/10/24 History folic acid 1 mg tablet 1 mg PO DAILY 10/08/23 04/12/24 History insulin lispro 100 unit/mL See Protocol subcut ACHS #0 mL 10/13/23 Unknown Rx subcutaneous pen (Humalog KwikPen (U-100) Insulin) acetaminophen 500 mg tablet 1,000 mg PO Q8 PRN fever or pain 04/12/24 Unknown History 1-10 alendronate 70 mg tablet 70 mg PO QWEEK bone health 04/12/24 04/10/24 History insulin glargine 100 unit/mL (3 16 unit subcut BID 04/12/24 04/12/24 History mL) subcutaneous pen (Lantus Solostar U-100 Insulin) insulin lispro 100 unit/mL 15 unit subcut TID 04/12/24 04/12/24 History subcutaneous pen (Humalog KwikPen (U-100) Insulin) levothyroxine 150 mcg tablet 150 mcg PO DAILY 04/12/24 04/12/24 History apixaban 5 mg tablet (Eliquis) 5 mg PO BID #60 tabs 04/13/24 Unknown Rx metoprolol tartrate 50 mg tablet 50 mg PO BID #60 tabs 04/13/24 Unknown Rx Allergy/AdvReac Type Severity Reaction Status Date / Time egg (eggs) AdvReac Vomiting Verified 05/11/24 01:50 Family History Mother Diabetes Heart disease Father Diabetes Cancer Throat cancer Surgical History s/p right shoulder surgery H/O: Social History household members: spouse Smoking Status: Former smoker alcohol intake: never substance use type: does not use ROS Constitutional Constitutional: Denies chills, fatigue, fever(s) or weakness Cardiovascular Cardiovascular: Denies chest pain Respiratory/Chest Respiratory/Chest: Denies shortness of breath at rest Gastrointestinal Gastrointestinal: Denies abdominal pain, constipation, diarrhea, nausea or vomiting Genitourinary Genitourinary: Denies burning urination, dysuria, nocturia or urinary frequency Musculoskeletal Musculoskeletal: Denies arthralgias or myalgias Neurologic Neurologic: Denies dizziness, focal weakness or headache(s) Vital Signs Vital Signs Vital Signs: 05/11/24 01:51 05/11/24 01:55 05/11/24 01:55 Temperature 101.3 F H 101.3 F H Temperature Source Oral Oral Pulse Rate 118 H 115 H Respiratory Rate 20 H 20 H Respiratory Effort Normal Respiratory Pattern Tachypnea Blood Pressure 158/76 H 158/76 H Blood Pressure Mean 103 103 Pulse Ox 88 93 Oxygen Delivery Method Room Air Nasal Cannula Oxygen Flow Rate (L/min) 2 05/11/24 02:55 05/11/24 03:50 Temperature 98.6 F 98.6 F Temperature Source Oral Oral Pulse Rate 104 H 97 Respiratory Rate 22 H 18 Respiratory Effort Respiratory Pattern Blood Pressure 140/67 H 124/66 H Blood Pressure Mean 91 85 Pulse Ox 97 95 Oxygen Delivery Method Nasal Cannula Nasal Cannula Oxygen Flow Rate (L/min) 2 2 Weight Weight: 57.9 kg Body Mass Index (BMI) 21.9 Physical Exam Const alert, oriented x3 and no apparent distress Constitutional Narrative: Pleasant elderly female, thin appearing, somewhat fatigued appearing, otherwise sitting up comfortably in bed, conversing normally, in no acute distress. General Appearance: cooperative and comfortable HEENT normocephalic, head/scalp atraumatic, hearing grossly normal bilaterally, nasal mucous membranes and turbinates normal and moist oral mucous membranes Eyes PERRL, EOMs intact bilaterally and conjunctivae normal Neck full ROM Chest inspection of chest normal Resp normal respiratory effort and no use of accessory muscles Resp Narrative: Breathing comfortably on 2 L nasal cannula at rest. Mild crackles noted at bilateral lung bases, no wheezing noted. Cardio regular rate, regular rhythm, no murmurs and peripheral pulses 2+ throughout GI normal to inspection, nondistended, normoactive bowel sounds, soft to palpation, non-tender and non-distended Back/Spine normal ROM Extremity normal to inspection, full ROM and no pedal edema Skin no rashes or lesions noted Psych mental status grossly normal Results Lab / Micro Data 05/11/24 02:36 05/11/24 01:54 Labs: Laboratory Results - last 24 hr 05/11/24 01:54: Sodium 132 L, Potassium 3.7, Chloride 101, Carbon Dioxide 20.0 L, Anion Gap 11, BUN 18, Creatinine 0.61, Estim Creat Clear Calc 55.70, Est GFR (MDRD) Af Amer 124, Est GFR (MDRD) Non-Af 103, BUN/Creatinine Ratio 29.6 H, Glucose 346 H, Calcium 8.6, Magnesium 1.5 L, B-Natriuretic Peptide 109.9 H 05/11/24 01:58: POC Glucose 336 H 05/11/24 02:28: Lactic Acid 1.2, Urine Color Yellow, Urine Clarity Cloudy, Urine pH 6.0, Ur Specific [place] 1.020, Urine Protein 30 H, Urine Glucose (UA) 1000 H, Urine Ketones 150 A*, Urine Occult Blood 25 H, Urine Nitrite Positive H, Urine Bilirubin Negative, Urine Urobilinogen Normal, Ur Leukocyte Esterase 500 H, Urine RBC 10-25 SEEN, Urine WBC >100 SEEN, Ur Squamous Epith Cells 5-10 SEEN, Urine Bacteria 4+, Urine Mucus 0 SEEN 05/11/24 02:36: WBC 7.4, RBC 3.59 L, Hgb 10.3 L, Hct 31.3 L, MCV 87.2, MCH 28.7, MCHC 32.9, RDW Std Deviation 50.0 H, RDW Coeff of Mateus 15.8 H, Plt Count 87 L, MPV 13.0 H, Immature Gran % (Auto) 0.700, Neut % (Auto) 87.2 H, Lymph % (Auto) 4.6 L, [place] % (Auto) 6.5, Eos % (Auto) 0.3, Baso % (Auto) 0.7, Absolute Neuts (auto) 6.5, Absolute Lymphs (auto) 0.34 L, Nucleated RBC % 0, Differential Comment SCANNED, Platelet Estimate MOD DEC, RBC Morphology NORM C+C Micro: Microbiology 05/11/24 02:28 Mucosa - Nose SARS-CoV-2, Influenza & RSV (PCR) - Final Imaging Radiology Impression Chest X-Ray 05/11/24 02:08 IMPRESSION: Left basilar infiltrate likely pneumonia superimposed on chronic interstitial disease. Electronically Signed: Ethel Jimenez MD at 3:29 EST , Assessment & Plan Assessment/Plan (1) Left lower lobe pneumonia: (2) Hypoxia: (3) UTI (urinary tract infection): PLAN: Plan Patient is a 73-year-old female who presented [facility] ED on 05/11/2024 with palpitations and mild URI symptoms. 1. Suspected community-acquired pneumonia with mild hypoxia ? Admit under inpatient status to PCU. Only mild URI symptoms but chest x-ray findings and hypoxia seem consistent with left-sided pneumonia. COVID/flu/RSV negative. Sputum culture ordered. Will treat with IV Levaquin for now. Wean supplemental oxygen as able. 2. Acute cystitis ? Patient denied UTI symptoms on admission but UA grossly positive with 500 leukocyte esterase, positive nitrates, 4+ bacteria. Urine culture pending. Last urine culture in September grew Klebsiella and E. coli that were both susceptible to Levaquin. Treating with IV Levaquin as noted above. 3. Paroxysmal A-fib ? Diagnosed with paroxysmal A-fib with RVR during previous admission. In normal sinus rhythm on this admission despite reporting palpitations prior to admission. Continue cardiac monitoring. Continue home Lopressor and Eliquis. 4. Type 2 diabetes mellitus with hyperglycemia ? Blood glucose 346 on admit. A1c ordered. Last 2 A1c values in June and September were right around 12%. Will continue home Lantus 16 units twice daily and dose reduced to Humalog 8 units with meals plus sliding scale insulin, adjust as needed. 5. Thrombocytopenia ? Platelet count 87 on admit. No previous history of thrombocytopenia. Will repeat CBC to ensure this is not lab error. 6. Chronic debility ? PT/OT/case management consulted. Lives with and uses 4 point walker at baseline. Is mildly more fatigued than her normal given her active infection. Chronic medical conditions: ? Rheumatoid arthritis: Stable, not in exacerbation. Holding home weekly methotrexate. ? Osteoporosis: Continue home alendronate weekly after discharge. ? Hypothyroidism: Continue home Synthroid. ? Hypertension: Holding home losartan for now, restart as able. DVT prophylaxis: Not indicated, on Eliquis CODE STATUS: DNR CCA, okay to intubate Expected disposition: Home, 2 to 3 days Total clinical time spent by myself addressing the patient's medical issues, reviewing all the data, and collaborating with patient's care team: 55 minutes. Charges/Coding Visit Charges Inpatient E&M: 85516 Init Hosp L2
[2024-05-11] MEDS: levoFLOXacin IV 750 MG/150 ML BAG 100 MG IV (05:21)
[2024-05-11] MEDS: Levothyroxine 150 MCG Tablet PO (05:24)
[2024-05-11] MEDS: Magnesium Sulfate 2 GM in Dextrose 5%-Water (100mL Bag) 100 ML IV (06:57)
[2024-05-11 07:03] LABS: Hematocrit 30.6 % (37-47); Hemoglobin 10.3 g/dL (12.0-15.0); Mean Corp Hgb Conc 33.7 g/dL (32-36); Mean Corpuscular Hgb 29.3 pg (27.0-32.0); Mean Corpuscular Volume 86.9 fL (81-99); Mean Platelet Vol. 12.8 fl (6.2-12.0); POSITIVE COUNT YES; Platelet Count 90 K/mm3 (150-450); RBC Distribution Width CV 15.6 % (11.6-14.6); RBC Distribution Width SD 49.6 fl (35.1-43.9); Red Blood Count 3.52 M/mm3 (4.2-5.4); White Blood Count 8.3 K/mm3 (4.4-11.0)
[2024-05-11 07:29] LABS: Scan Indicated on CBC? Y/N YES- FLAGS NOTED
[2024-05-11 07:43] LABS: Hemoglobin A1c 10.5 % (3.8-5.6)
[2024-05-11] MEDS: Insulin Lispro 100 UNIT/ML INSULN.PEN 8 UNIT SC ×2 (08:21→11:53)
[2024-05-11] MEDS: Insulin Lispro 100 UNIT/ML INSULN.PEN SC ×2 (08:22→11:53)
[2024-05-11] MEDS: APIXABAN 5 MG TABLET PO (08:23)
[2024-05-11] MEDS: Folic Acid 1 MG Tablet PO (08:23)
[2024-05-11] MEDS: Magnesium Chloride 64 MG Delay Rel.Tablet 128 MG PO (08:24)
[2024-05-11] MEDS: Metoprolol Tartrate 50 MG Tablet PO (08:24)
[2024-05-11] MEDS: Insulin Glargine-YFGN 100 UNIT/ML Pen 16 UNIT SC (08:25)
[2024-05-11] MEDS: Glucerna Shake 120 ML LIQUID PO (08:26)
[2024-05-11 08:50] LABS: Bedside Glucose 398 mg/dL (74-106)
[2024-05-11 12:14] LABS: Bedside Glucose 320 mg/dL (74-106)
--- NOTE | 2024-05-11 14:35 | DCINST_ITS ---
Discharge Instructions Diet Discharge Diet: 1800 Calorie Control Diet DC O2, CPAP, BIPAP needs Additional Home O2 Discharge instructions: No Dressing / Incision Discharge Activity: Return to Normal Activity Weight Bearing Status: Full weight bearing Follow Up Care Test Results: Test results from this visit will be discussed in further detail at your follow- up appointment, if applicable. Discharge Plan Admission Admit Date/Time: 05/11/24 03:58 Primary Reason for Your Visit: Cystitis, pulmonary fibrosis, possible community- acquired pneumonia Attending Provider: Eric De Los Santos Primary Care Provider: Eric Bravo Consulting Providers: Dejon Pearce Discharge Orders/Prescriptions Prescriptions: New levofloxacin 500 mg tablet 500 mg PO DAILY Qty: 7 0RF Rx Instructions: Start on 05/12/2024 Continued methotrexate sodium 2.5 mg tablet 12.5 mg PO QWEEK Patient Comments: TAKE 5 (FIVE) tablets BY MOUTH per week losartan 25 mg tablet 25 mg PO DAILY magnesium oxide 400 mg magnesium tablet 400 mg PO DAILY folic acid 1 mg tablet 1 mg PO DAILY insulin lispro [Humalog KwikPen Insulin] 100 unit/mL Insulin Pen See Protocol subcut ACHS Qty: 0 0RF Protocol: 3. Sliding Scale Insulin Med Dosing Condition: 150-189 mg/dl = 1 unit Condition: 190-229 mg/dl = 2 units Condition: 230-269 mg/dl = 3 units Condition: 270-309 mg/dl = 4 units Condition: 310-349 mg/dl = 5 units Condition: 350-399 mg/dl = 6 units Condition: 400-449 mg/dl = 7 units Condition: Greater than 449 call physician Protocol Text: - Use for Total Daily Dose of Insulin 37-55 units - Obsese, infected, or steroid patients MEDIUM DOSING ALGORITHIM insulin lispro [Humalog KwikPen Insulin] 100 unit/mL insulin pen 15 unit subcut TID Rx Instructions: Hold if glucose less than 130 mg/dl insulin glargine [Lantus Solostar U-100 Insulin] 100 unit/mL (3 mL) insulin pen 16 unit subcut BID alendronate 70 mg tablet 70 mg PO QWEEK Rx Instructions: Takes on Friday levothyroxine 150 mcg tablet 150 mcg PO DAILY acetaminophen 500 mg Tablet 1,000 mg PO Q8 PRN (Reason: fever or pain 1-10) metoprolol tartrate 50 mg Tablet 50 mg PO BID Qty: 60 0RF Eliquis 5 mg tablet 5 mg PO BID Qty: 60 0RF Referrals / Follow Up: Eric Bravo DO [Primary Care Provider] - Within 2 Weeks Disposition Disposition (needs filled in before D/C Order can be placed): Home, Self Care
--- NOTE | 2024-05-11 14:41 | DS.PCM_ITS ---
Providers Date of Admission: 05/11/24 Date of Discharge: 05/11/24 Primary Care Physician: Dr. Eric Bravo DO Reason For Visit: CAP W/ HYPOXIA AND UTI Diagnosis Discharge Diagnosis (1) Left lower lobe pneumonia: Status: Acute Code(s): J18.9 - Pneumonia, unspecified organism (2) Hypoxia: Status: Acute Code(s): R09.02 - Hypoxemia (3) UTI (urinary tract infection): Status: Acute Code(s): N39.0 - Urinary tract infection, site not specified Plan 1. Community-acquired pneumonia #2 acute cystitis #3 paroxysmal A-fib #4 type 2 diabetes Medications at Discharge Home Medications losartan 25 mg tablet 25 mg PO DAILY BLOOD PRESSURE 03/15/22 magnesium oxide 400 mg PO DAILY SUPPLEMENT 03/15/22 methotrexate sodium 2.5 mg tablet 12.5 mg PO QWEEK inflammation 03/15/22 folic acid 1 mg tablet 1 mg PO DAILY 10/08/23 insulin lispro 100 unit/mL subcutaneous pen (Humalog KwikPen (U-100) Insulin) See Protocol subcut ACHS #0 mL 10/13/23 acetaminophen 500 mg tablet 1,000 mg PO Q8 PRN fever or pain 1-10 04/12/24 alendronate 70 mg tablet 70 mg PO QWEEK bone health 04/12/24 insulin glargine 100 unit/mL (3 mL) subcutaneous pen (Lantus Solostar U-100 Insulin) 16 unit subcut BID 04/12/24 insulin lispro 100 unit/mL subcutaneous pen (Humalog KwikPen (U-100) Insulin) 15 unit subcut TID 04/12/24 levothyroxine 150 mcg tablet 150 mcg PO DAILY 04/12/24 apixaban 5 mg tablet (Eliquis) 5 mg PO BID #60 tabs 04/13/24 metoprolol tartrate 50 mg tablet 50 mg PO BID #60 tabs 04/13/24 levofloxacin 500 mg tablet 500 mg PO DAILY #7 tabs 05/11/24 Hospital Course Operations None Procedures None Summary of Care Provided Minutes Spent on Discharge: 32 Hospital Course: This 73-year-old white female was seen in the emergency room at [facility] with complaints of palpitations and mild nonproductive cough and chest congestion. Workup in the emergency room included a chest x-ray which showed a left basilar infiltrate consistent with possible pneumonia superimposed on chronic interstitial disease. UA showed 500 leukocyte esterase positive nitrites and plus for bacteria. Patient's temperature in the ER was noted to be 101.3, oxygen saturation was in the high 80s on room air. Patient was admitted to PCU and placed on IV antibiotics and aerosol treatments, patient did not require oxygen during her hospital stay, patient requested discharge when I saw her on rounds that morning, patient seen medically stable and later on in the day I made the decision to discharge the patient with outpatient antibiotics. On 05/11/2024, patient was seen and examined: On examination she appeared in good health and spirits, she does not appear to be in any distress. Vital signs as documented. Skin warm and dry and without overt rashes. Neck without JVD, thyroid appears normal, trachea is midline, neck is supple. Lungs clear, normal air movement was noted. Heart exam notable for regular rhythm, normal sounds and absence of murmurs, rubs or gallops. Abdomen unremarkable and without evidence of organomegaly, masses, or abdominal aortic enlargement, bowel sounds are present in all 4 quadrants, no abdominal tenderness was noted. Extremities nonedematous, no cyanosis was noted, no clubbing was noted. Neuro: Cranial nerves II through XII are grossly intact, no focal motor deficits were noted, sensation to light touch and pinprick is intact, motor exam 5/5 throughout. Psych: Patient is alert and oriented x3, she does not appear anxious or depressed, she does not appear agitated. Patient appeared to be medically stable for discharge home on 05/11/2024. Weight / BMI Weight Weight: 51 kg Body Mass Index (BMI) 19.3 ABG / Lab / Microbiology Data 05/11/24 06:41 05/11/24 01:54 Laboratory: Laboratory Results - last 24 hr 05/11/24 01:54: Sodium 132 L, Potassium 3.7, Chloride 101, Carbon Dioxide 20.0 L , Anion Gap 11, BUN 18, Creatinine 0.61, Estim Creat Clear Calc 55.70, Est GFR (MDRD) Af Amer 124, Est GFR (MDRD) Non-Af 103, BUN/Creatinine Ratio 29.6 H, G lucose 346 H, Calcium 8.6, Magnesium 1.5 L, B-Natriuretic Peptide 109.9 H 05/11/24 01:58: POC Glucose 336 H 05/11/24 02:28: Lactic Acid 1.2, Urine Color Yellow, Urine Clarity Cloudy, Urine pH 6.0, Ur Specific [place] 1.020, Urine Protein 30 H, Urine Glucose (UA) 1000 H , Urine Ketones 150 A*, Urine Occult Blood 25 H, Urine Nitrite Positive H, Urine Bilirubin Negative, Urine Urobilinogen Normal, Ur Leukocyte Esterase 500 H, Urine RBC 10-25 SEEN, Urine WBC >100 SEEN, Ur Squamous Epith Cells 5-10 SEEN, Urine Bacteria 4+, Urine Mucus 0 SEEN 05/11/24 02:36: WBC 7.4, RBC 3.59 L, Hgb 10.3 L, Hct 31.3 L, MCV 87.2, MCH 28.7, MCHC 32.9, RDW Std Deviation 50.0 H, RDW Coeff of Mateus 15.8 H, Plt Count 87 L, M PV 13.0 H, Immature Gran % (Auto) 0.700, Neut % (Auto) 87.2 H, Lymph % (Auto) 4.6 L, [place] % (Auto) 6.5, Eos % (Auto) 0.3, Baso % (Auto) 0.7, Absolute Neuts (auto) 6.5, Absolute Lymphs (auto) 0.34 L, Nucleated RBC % 0, Differential Comment SCANNED, Platelet Estimate MOD DEC, RBC Morphology NORM C+C, Hemoglobin A1c 10.5 H 05/11/24 06:41: WBC 8.3, RBC 3.52 L, Hgb 10.3 L, Hct 30.6 L, MCV 86.9, MCH 29.3, MCHC 33.7, RDW Std Deviation 49.6 H, RDW Coeff of [place] 15.6 H, Plt Count 90 L, M PV 12.8 H, Differential Comment 05/11/24 08:15: POC Glucose 398 H 05/11/24 11:52: POC Glucose 320 H Microbiology: Microbiology 05/11/24 02:28 Mucosa - Nose SARS-CoV-2, Influenza & RSV (PCR) - Final Radiography Diagnostic Testing: Radiology Impression Chest X-Ray 05/11/24 02:08 IMPRESSION: Left basilar infiltrate likely pneumonia superimposed on chronic interstitial disease. Electronically Signed: Ethel Jimenez MD at 3:29 EST , D/C Instructions Discharge Diet: 1800 Calorie Control Diet Weight Bearing Status: Full weight bearing DC O2, CPAP, BIPAP Needs Additional Home O2 Discharge instructions: No DC home with Oxygen: No Meaningful Use Info Meaningful Use Meaningful Use Diagnoses (Choose all that apply): None applicable Ischemic Stroke Statin Dosing Therapy Reference: STATIN DOSE THERAPY REFERENCE: * Patients > 75 years receive moderate or high dose statin therapy. * Patients 75 years or YOUNGER should receive HIGH intensity statin dose unless contraindicated. You will be required to document reason for non-treatment if statin daily dose does not meet guidelines. HIGH DOSE STATIN THERAPY DAILY Atorvastatin > than or = to 40 mg Rosuvastatin > than or = to 20 mg Amlodipine + Atorvastatin > than or = to 2.5/40 mg Ezetimibe + Simvastatin 10/80 mg Simvastatin 80mg Discharge Plan Admission Admit Date/Time: 05/11/24 03:58 Primary Reason for Your Visit: Cystitis, pulmonary fibrosis, possible community- acquired pneumonia Attending Provider: Eric De Los Santos Primary Care Provider: Eric Bravo Consulting Providers: Dejon Pearce Discharge Orders/Prescriptions Prescriptions: New levofloxacin 500 mg tablet 500 mg PO DAILY Qty: 7 0RF Rx Instructions: Start on 05/12/2024 Continued methotrexate sodium 2.5 mg tablet 12.5 mg PO QWEEK Patient Comments: TAKE 5 (FIVE) tablets BY MOUTH per week losartan 25 mg tablet 25 mg PO DAILY magnesium oxide 400 mg magnesium tablet 400 mg PO DAILY folic acid 1 mg tablet 1 mg PO DAILY insulin lispro [Humalog KwikPen Insulin] 100 unit/mL Insulin Pen See Protocol subcut ACHS Qty: 0 0RF Protocol: 3. Sliding Scale Insulin Med Dosing Condition: 150-189 mg/dl = 1 unit Condition: 190-229 mg/dl = 2 units Condition: 230-269 mg/dl = 3 units Condition: 270-309 mg/dl = 4 units Condition: 310-349 mg/dl = 5 units Condition: 350-399 mg/dl = 6 units Condition: 400-449 mg/dl = 7 units Condition: Greater than 449 call physician Protocol Text: - Use for Total Daily Dose of Insulin 37-55 units - Obsese, infected, or steroid patients MEDIUM DOSING ALGORITHIM insulin lispro [Humalog KwikPen Insulin] 100 unit/mL insulin pen 15 unit subcut TID Rx Instructions: Hold if glucose less than 130 mg/dl insulin glargine [Lantus Solostar U-100 Insulin] 100 unit/mL (3 mL) insulin pen 16 unit subcut BID alendronate 70 mg tablet 70 mg PO QWEEK Rx Instructions: Takes on Friday levothyroxine 150 mcg tablet 150 mcg PO DAILY acetaminophen 500 mg Tablet 1,000 mg PO Q8 PRN (Reason: fever or pain 1-10) metoprolol tartrate 50 mg Tablet 50 mg PO BID Qty: 60 0RF Eliquis 5 mg tablet 5 mg PO BID Qty: 60 0RF Referrals / Follow Up: Eric Bravo DO [Primary Care Provider] - Within 2 Weeks Disposition Disposition (needs filled in before D/C Order can be placed): Home, Self Care Charges/Coding Visit Charges Office Visits / Consults: 94654 OV L4 Est 30min
--- NOTE | 2024-05-11 14:53 | CASEMGMT ---
Physician advisor Dr Bhakta and attending reviewed patient's inpatient status against Medicare guidelines and determined patient is appropriate for outpatient status. Pt notified of status change from inpatient to outpatient. TUCKER form provided and signed by Patient. Patient provided a copy and original placed in pt?s chart. Patient has order for discharge. RN CM in to discuss needs at discharge. Patient lives with and denies needs at discharge. Patient states her family is coming for the holiday and will be staying with her. Patient had no further questions or concerns.
== END 2024-05-11 14:41 | disposition home or self-care (01) ==
LOC: ED 04:07 → PCU 06:58
PROVIDERS: Admitting Provider Hospitalist; Emergency Provider Emergency Medicine; PCP Family Medicine; Visit Provider Internal Medicine
DX: J18.9 Pneumonia, unspecified organism (principal); M06.9 Rheumatoid arthritis, unspecified; I48.0 Paroxysmal atrial fibrillation; E11.65 Type 2 diabetes mellitus with hyperglycemia; Z79.4 Long term (current) use of insulin; N30.00 Acute cystitis without hematuria; I10 Essential (primary) hypertension; E03.9 Hypothyroidism, unspecified; Z66 Do not resuscitate; Z87.891 Personal history of nicotine dependence; Z79.890 Hormone replacement therapy; Z79.83 Long term (current) use of bisphosphonates; Z79.01 Long term (current) use of anticoagulants; Z79.899 Other long term (current) drug therapy; D69.6 Thrombocytopenia, unspecified; M81.0 Age-related osteoporosis without current pathological fracture
CPT/HCPCS: 36415; 71046; 80048; 81001; 82962; 83036; 83605; 83735; 83880; 85025; 85027; 87077; 87086; 87088; 87186; 87631; 93005; 94668; 96361; 96365; 96366; 97802; 99221; 99285; J7040; A4216; G0378

== ENCOUNTER → 2024-05-24 | Outpatient (CLI) | payer MEDICARE, OTHER, SELFPAY ==
[2024-05-24 10:57] LABS: Erythrocyte Sedimentation Rate 45 mm/hr (0-30)
[2024-05-24 11:00] LABS: Absolute Lymphocyte Count 1.86 X10^3/uL (0.83-4.51); Absolute Neutrophil Count 3.2 X10^3/uL (2.0-7.7); Basophil# 0.18 X10^3/uL; Basophil% 3.1 % (0-1); Eosinophil# 0.28 X10^3/uL; Eosinophils% 4.7 % (0-5); Hematocrit 38.3 % (37-47); Hemoglobin 12.1 g/dL (12.0-15.0); Lymphocyte # 1.86 X10^3/ul (0.83-4.51); Lymphocyte % 31.5 % (19-41); Mean Corp Hgb Conc 31.6 g/dL (32-36); Mean Corpuscular Hgb 28.3 pg (27.0-32.0); Mean Corpuscular Volume 89.7 fL (81-99); Mean Platelet Vol. 11.3 fl (6.2-12.0); Monocyte# 0.32 X10^3/uL; Monocyte% 5.4 % (0-10); NRBC Flagged by Analyzer 0 % (0-5); Neutrophil # 3.22 X10^3/uL (2.7-7.7); Neutrophil % 54.6 % (47-70); Platelet Count 489 K/mm3 (150-450); RBC Distribution Width CV 15.9 % (11.6-14.6); RBC Distribution Width SD 51.3 fl (35.1-43.9); Red Blood Count 4.27 M/mm3 (4.2-5.4); White Blood Count 5.9 K/mm3 (4.4-11.0)
[2024-05-24 11:04] LABS: AST(SGOT) 17 U/L (15-37); Alanine Aminotransfer ALT/SGPT 16 U/L (13-56); CRP 3.79 mg/L (0.0-3.0); Creatinine, Serum 0.66 mg/dL (0.55-1.02); EST Glomerular Filtration Rate 94 mL/min (>60); Est Glom Filt Rate - Afr Amer 113 mL/min (>60)
== END | disposition home or self-care (01) ==
LOC: LAB 10:04
PROVIDERS: PCP Family Medicine; Referring Provider Internal Medicine Rheumatology; Visit Provider Internal Medicine Rheumatology
DX: M05.79 Rheumatoid arthritis with rheumatoid factor of multiple sites without organ or systems involvement (principal); R76.8 Other specified abnormal immunological findings in serum; R79.82 Elevated C-reactive protein (CRP); Z96.611 Presence of right artificial shoulder joint; Z87.39 Personal history of other diseases of the musculoskeletal system and connective tissue; Z79.52 Long term (current) use of systemic steroids; Z79.899 Other long term (current) drug therapy; Z79.631 Long term (current) use of antimetabolite agent; Z51.81 Encounter for therapeutic drug level monitoring; M18.0 Bilateral primary osteoarthritis of first carpometacarpal joints; M19.041 Primary osteoarthritis, right hand; M19.042 Primary osteoarthritis, left hand; M19.031 Primary osteoarthritis, right wrist; M19.032 Primary osteoarthritis, left wrist; Z79.620 Long term (current) use of immunosuppressive biologic; R74.8 Abnormal levels of other serum enzymes; R79.89 Other specified abnormal findings of blood chemistry; D89.2 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, unspecified; E55.9 Vitamin D deficiency, unspecified; E03.9 Hypothyroidism, unspecified; R53.83 Other fatigue; E88.09 Other disorders of plasma-protein metabolism, not elsewhere classified
CPT/HCPCS: 36415; 82565; 84450; 84460; 85025; 85652; 86140

== ENCOUNTER → 2024-07-19 | Outpatient (CLI) | payer MEDICARE, OTHER, SELFPAY ==
[2024-07-19 11:47] LABS: Erythrocyte Sedimentation Rate 44 mm/hr (0-30)
[2024-07-19 11:56] LABS: AST(SGOT) 23 U/L (15-37); Alanine Aminotransfer ALT/SGPT 29 U/L (13-56); CRP 2.99 mg/L (0.0-3.0); Creatinine, Serum 0.57 mg/dL (0.55-1.02); EST Glomerular Filtration Rate 111 mL/min (>60); Est Glom Filt Rate - Afr Amer 134 mL/min (>60)
[2024-07-19 16:53] LABS: Absolute Lymphocyte Count 2.11 X10^3/uL (0.83-4.51); Absolute Neutrophil Count 3.5 X10^3/uL (2.0-7.7); Basophil# 0.14 X10^3/uL; Basophil% 2.1 % (0-1); Eosinophil# 0.39 X10^3/uL; Eosinophils% 5.9 % (0-5); Hematocrit 39.3 % (37-47); Hemoglobin 12.7 g/dL (12.0-15.0); Lymphocyte # 2.11 X10^3/ul (0.83-4.51); Lymphocyte % 31.8 % (19-41); Mean Corp Hgb Conc 32.3 g/dL (32-36); Mean Corpuscular Hgb 28.4 pg (27.0-32.0); Mean Corpuscular Volume 87.9 fL (81-99); Mean Platelet Vol. 12.7 fl (6.2-12.0); Monocyte# 0.46 X10^3/uL; Monocyte% 6.9 % (0-10); NRBC Flagged by Analyzer 0 % (0-5); Neutrophil # 3.51 X10^3/uL (2.7-7.7); Platelet Count 274 K/mm3 (150-450); RBC Distribution Width CV 14.3 % (11.6-14.6); RBC Distribution Width SD 45.1 fl (35.1-43.9); Red Blood Count 4.47 M/mm3 (4.2-5.4); White Blood Count 6.6 K/mm3 (4.4-11.0)
== END | disposition home or self-care (01) ==
LOC: LAB 09:58
PROVIDERS: PCP Family Medicine; Referring Provider Internal Medicine Rheumatology; Visit Provider Internal Medicine Rheumatology
DX: M05.79 Rheumatoid arthritis with rheumatoid factor of multiple sites without organ or systems involvement (principal); R76.8 Other specified abnormal immunological findings in serum; R79.82 Elevated C-reactive protein (CRP); Z96.611 Presence of right artificial shoulder joint; Z87.39 Personal history of other diseases of the musculoskeletal system and connective tissue; Z79.52 Long term (current) use of systemic steroids; Z79.899 Other long term (current) drug therapy; Z79.631 Long term (current) use of antimetabolite agent; Z51.81 Encounter for therapeutic drug level monitoring; M18.0 Bilateral primary osteoarthritis of first carpometacarpal joints; M19.041 Primary osteoarthritis, right hand; M19.042 Primary osteoarthritis, left hand; M19.031 Primary osteoarthritis, right wrist; M19.032 Primary osteoarthritis, left wrist; R74.8 Abnormal levels of other serum enzymes; R79.89 Other specified abnormal findings of blood chemistry; D89.2 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, unspecified; E55.9 Vitamin D deficiency, unspecified; E03.9 Hypothyroidism, unspecified; R53.83 Other fatigue; E88.09 Other disorders of plasma-protein metabolism, not elsewhere classified
CPT/HCPCS: 36415; 82565; 84450; 84460; 85025; 85652; 86140

== ENCOUNTER 2024-08-08 21:54 | Emergency (ER) | payer MEDICARE, OTHER, SELFPAY ==
[2024-08-08 21:56] VITALS: BP 134/101; PULSE 207; RESP 25; TEMP 36.8; O2SAT 95; BMI 22.4
[2024-08-08 22:02] VITALS: BP 133/85
[2024-08-08 22:04] VITALS: BP 133/85; PULSE 207; RESP 20; O2SAT 98
[2024-08-08] MEDS: Adenosine 6 MG/2 ML Syringe IV (22:05)
[2024-08-08 22:06] VITALS: BP 173/92; PULSE 113; RESP 24; O2SAT 98
--- NOTE | 2024-08-08 22:08 | EKG12_ITS ---
Test Reason : TACHYCARDIA Blood Pressure : */* mmHG Vent. Rate : 205 BPM Atrial Rate : * BPM P-R Int : * ms QRS Dur : 82 ms QT Int : 220 ms P-R-T Axes : * 41 200 degrees QTcB Int : 406 ms Critical Test Result: High HR Supraventricular tachycardia Marked ST abnormality, possible inferolateral subendocardial injury Abnormal ECG Confirmed by Tu Lake ([id number]), writer editor OSMAN ZAZUETA ([id number]) on 08/09/2024 10:30:53 AM Referred By: Demarcus Morales Confirmed By: Tu Lake
[2024-08-08 22:21] LABS: Absolute Lymphocyte Count 2.78 X10^3/uL (0.83-4.51); Absolute Neutrophil Count 5.9 X10^3/uL (2.0-7.7); Basophil# 0.12 X10^3/uL; Basophil% 1.2 % (0-1); Eosinophil# 0.29 X10^3/uL; Hemoglobin 12.7 g/dL (12.0-15.0); Lymphocyte # 2.78 X10^3/ul (0.83-4.51); Lymphocyte % 28.4 % (19-41); Mean Corp Hgb Conc 33.4 g/dL (32-36); Mean Corpuscular Hgb 28.6 pg (27.0-32.0); Mean Corpuscular Volume 85.6 fL (81-99); Mean Platelet Vol. 12.7 fl (6.2-12.0); Monocyte# 0.69 X10^3/uL; NRBC Flagged by Analyzer 0 % (0-5); Neutrophil # 5.88 X10^3/uL (2.7-7.7); Platelet Count 195 K/mm3 (150-450); Red Blood Count 4.44 M/mm3 (4.2-5.4); White Blood Count 9.8 K/mm3 (4.4-11.0)
--- NOTE | 2024-08-08 22:21 | EX.ED.DYSGE1 ---
HPI History of Present Illness Chief Complaint: Palpitations Informant: patient and EMS Narrative Narrative: Presents by EMS from home palpitations racing heart 2 hours prior to arrival. She was sitting on the couch and noted symptoms. Occasional lightheaded symptoms. No chest pains. States she had a fast heart rate in the past. EMS EKG had concerns of SVT. She did not 100% say of his SVT. However reviewing records she had A-fib in March and was admitted. She is on Eliquis. She is on metoprolol. She did take her nighttime medicines at supper. No recent cough. No recent vomiting or diarrhea. She drinks coffee 2 to 3 cups a day that is typical for her. 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 with infusions. Denies any coronary disease history. She states she has not followed up with cardiology. [facility] similar symptoms: [facility] Medical History Left lower lobe pneumonia UTI (urinary tract infection) Chronic anemia Rheumatoid arthritis Diabetes mellitus, type 2 Former tobacco use Hypothyroidism HTN (hypertension) Home Medications ?Medication ?Instructions ?Recorded ?Last Taken ?Type losartan 25 mg tablet 25 mg PO DAILY BLOOD PRESSURE 03/15/22 04/11/24 History magnesium oxide 400 mg PO DAILY SUPPLEMENT 03/15/22 04/12/24 History methotrexate sodium 2.5 mg tablet 12.5 mg PO QWEEK inflammation 03/15/22 04/10/24 History folic acid 1 mg tablet 1 mg PO DAILY 10/08/23 04/12/24 History insulin lispro 100 unit/mL See Protocol subcut ACHS #0 mL 10/13/23 Unknown Rx subcutaneous pen (Humalog KwikPen (U-100) Insulin) acetaminophen 500 mg tablet 1,000 mg PO Q8 PRN fever or pain 04/12/24 Unknown History 1-10 alendronate 70 mg tablet 70 mg PO QWEEK bone health 04/12/24 04/10/24 History insulin glargine 100 unit/mL (3 16 unit subcut BID 04/12/24 04/12/24 History mL) subcutaneous pen (Lantus Solostar U-100 Insulin) insulin lispro 100 unit/mL 15 unit subcut TID 04/12/24 04/12/24 History subcutaneous pen (Humalog KwikPen (U-100) Insulin) levothyroxine 150 mcg tablet 150 mcg PO DAILY 04/12/24 04/12/24 History apixaban 5 mg tablet (Eliquis) 5 mg PO BID #60 tabs 04/13/24 Unknown Rx metoprolol tartrate 50 mg tablet 50 mg PO BID #60 tabs 04/13/24 Unknown Rx levofloxacin 500 mg tablet 500 mg PO DAILY #7 tabs 05/11/24 Unknown Rx Allergy/AdvReac Type Severity Reaction Status Date / Time egg (eggs) AdvReac Vomiting Verified 08/08/24 21:56 Family History Mother Diabetes Heart disease Father Diabetes Cancer Throat cancer Surgical History s/p right shoulder surgery H/O: Social History household members: spouse Smoking Status: Former smoker alcohol intake: never substance use type: does not use ROS ROS ED Constitutional Constitutional ED: Denies chills, fever(s) or sweats ENT ENT ED: Denies sore throat Cardiovascular Cardiovascular: Reports palpitations and racing heartbeat; Denies chest pain or leg edema Respiratory/Chest Respiratory/Chest: Denies cough, dyspnea or dyspnea on exertion Gastrointestinal Gastrointestinal: Denies abdominal pain, diarrhea, nausea or vomiting Genitourinary Genitourinary ED: Denies dysuria, hematuria or urinary frequency Musculoskeletal Musculoskeletal: Denies back pain, extremity pain or neck pain Integumentary Denies rash or wounds Neurologic Neurologic: Denies headache(s), paresthesias or weakness EXAM Physical Exam Const Vital Signs: 08/09/24 00:00 08/09/24 00:07 Temperature 98.3 F Pulse Rate 101 H 101 H Respiratory Rate 22 H 22 H Blood Pressure 143/93 H 143/93 H Blood Pressure Mean 109 109 Pulse Ox 94 94 Oxygen Delivery Method Room Air Positive well nourished and well developed General Appearance ED: well developed and NAD HEENT Reports moist mucous membranes normocephalic and atraumatic Eyes General Eye ED: Yes normal appearance of both eyes Neck full ROM Chest Wall Chest: Negative for tenderness Resp normal respiratory effort and normal air movement Effort and Inspection: symmetric chest movement; Negative for respiratory distress Cardio regular rhythm and no murmurs Rate: tachycardic Peripheral Pulses: pulses 2+ throughout GI normal to inspection, nondistended, normoactive bowel sounds and non-tender Palpation: Negative for guarding or rebound tenderness present Extremity normal to inspection General Extremety ED: Negative for edema or tenderness General Extremity: Negative for edema Neuro oriented x3 and no sensory deficits noted Sensorium / Orientation: awake and alert Skin no rashes or lesions noted and no wounds MDM MDM MDM Narrative Medical decision making narrative: Interventions / MDM: Differential diagnosis: Supraventricular tachycardia, history of paroxysmal A-fib Diagnosis considered but do not suspect: N/A My EKG interpretation: Narrow complex tachycardia rate of 205, ST depressions lateral leads likely demand. No elevations noted. Repeat EKG at 2325: Sinus rhythm rate of 96, no ST changes. Isolated T wave version leads III nonspecific. QTc 485. Imaging independently reviewed and interpreted by myself: N/A External documents reviewed: Patient's ED visit hospitalized in March 2024. A-fib with RVR converted to 1 in the hospital sent home on Eliquis and metoprolol. Had visit hospitalization April 2024 for fever pneumonia and UTI. Sinus rhythm at that time. Test considered but not ordered:N/A ED course: Patient narrow complex tachycardia heart rate 200s blood pressure systolic 130s. I attempted Valsalva maneuvers with blowing through a straw x 2 carotid massage no success. Labs were drawn. Discussed preparations for adenosine. 2204: Patient continued on the director of cardiac rehabilitation oxygen IV fluids were started. AP pads were placed. She is given 6 mg adenosine monitor she converted heart rate 110s. Blood pressure stable. 5: Labs stable TSH was elevated 4.5 sent for free T4 levels which was normal. Heart rate improved repeat EKG was normal. She is able to ambulate her walker. She has history of proximal A-fib and now SVT, discussed referral to cardiology. She will continue her home medications. All questions were answered. Re-evaluation: stable Disposition discussed with patient/family/significant other: Patient Case discussed with consulting clinician: N/A This note was generated with Qloo dictation software. It may contain incorrect words, spelling, and punctuation that were not noted in checking the note before signing. Lab Data Labs: Laboratory Results - last 24 hr 08/08/24 22:00 WBC 9.8 RBC 4.44 Hgb 12.7 Hct 38.0 MCV 85.6 MCH 28.6 MCHC 33.4 RDW Std Deviation 43.0 RDW Coeff of Mateus 14.0 Plt Count 195 MPV 12.7 H Immature Gran % (Auto) 0.400 Neut % (Auto) 60.0 Lymph % (Auto) 28.4 [place] % (Auto) 7.0 Eos % (Auto) 3.0 Baso % (Auto) 1.2 H Absolute Neuts (auto) 5.9 Absolute Lymphs (auto) 2.78 Nucleated RBC % 0 Sodium 137 Potassium 3.6 Chloride 103 Carbon Dioxide 25.0 Anion Gap 8 BUN 17 Creatinine 0.68 Estim Creat Clear Calc 54.89 Est GFR (MDRD) Af Amer 109 Est GFR (MDRD) Non-Af 90 BUN/Creatinine Ratio 24.9 H Glucose 280 H Calcium 9.4 Magnesium 1.8 TSH 4.530 H Free T4 1.01 Discharge Plan Triage Chief Complaint: Palpitations ED Provider: Demarcus Morales Dx/Rx/DC Orders Clinical Impression: SVT (supraventricular tachycardia), History of cardioversion, Paroxysmal A-fib Instructions: Supraventricular Tachycardia Prescriptions: No Action methotrexate sodium 2.5 mg tablet 12.5 mg PO QWEEK Patient Comments: TAKE 5 (FIVE) tablets BY MOUTH per week losartan 25 mg tablet 25 mg PO DAILY magnesium oxide 400 mg magnesium tablet 400 mg PO DAILY folic acid 1 mg tablet 1 mg PO DAILY insulin lispro [Humalog KwikPen Insulin] 100 unit/mL Insulin Pen See Protocol subcut ACHS Qty: 0 0RF Protocol: 3. Sliding Scale Insulin Med Dosing Condition: 150-189 mg/dl = 1 unit Condition: 190-229 mg/dl = 2 units Condition: 230-269 mg/dl = 3 units Condition: 270-309 mg/dl = 4 units Condition: 310-349 mg/dl = 5 units Condition: 350-399 mg/dl = 6 units Condition: 400-449 mg/dl = 7 units Condition: Greater than 449 call physician Protocol Text: - Use for Total Daily Dose of Insulin 37-55 units - Obsese, infected, or steroid patients MEDIUM DOSING ALGORITHIM insulin lispro [Humalog KwikPen Insulin] 100 unit/mL insulin pen 15 unit subcut TID Rx Instructions: Hold if glucose less than 130 mg/dl insulin glargine [Lantus Solostar U-100 Insulin] 100 unit/mL (3 mL) insulin pen 16 unit subcut BID alendronate 70 mg tablet 70 mg PO QWEEK Rx Instructions: Takes on Friday levothyroxine 150 mcg tablet 150 mcg PO DAILY acetaminophen 500 mg Tablet 1,000 mg PO Q8 PRN (Reason: fever or pain 1-10) metoprolol tartrate 50 mg Tablet 50 mg PO BID Qty: 60 0RF Eliquis 5 mg tablet 5 mg PO BID Qty: 60 0RF levofloxacin 500 mg tablet 500 mg PO DAILY Qty: 7 0RF Rx Instructions: Start on 05/12/2024 Primary Care Provider: Eric Bravo Referrals: Eloise Leon MD [Med Staff - Active Staff] - 3-5 Days Eric Bravo DO [Primary Care Provider] - Activity Restrictions/Additional Instructions: You were found to be in SVT. Given 6 mg Benicar converted. Give history of A-fib. Continue metoprolol and your Eliquis. Follow-up with cardiology. Symptoms recur, return to the ED for reevaluation. Print Language: [place] Disposition Disposition: Home, Self Care Discharge Date/Time: 08/09/24 00:22
[2024-08-08 22:57] LABS: Anion Gap 8 (5-15); BUN 17 mg/dL (7-18); BUN/Creat Ratio 24.9 RATIO (10-20); Calcium,Total 9.4 mg/dL (8.5-10.1); Chloride 103 mmol/L (98-107); Creatinine, Serum 0.68 mg/dL (0.55-1.02); EST Glomerular Filtration Rate 90 mL/min (>60); Est Glom Filt Rate - Afr Amer 109 mL/min (>60); Estimated Creatinine Clearance 54.89 ml/min; Glucose 280 mg/dL (74-106); Magnesium 1.8 mg/dL (1.6-2.6); Potassium 3.6 mmol/L (3.5-5.1); Sodium Level 137 mmol/L (136-145)
[2024-08-08 23:00] VITALS: BP 122/78; PULSE 96; RESP 22; O2SAT 94
--- NOTE | 2024-08-08 23:11 | EKG12_ITS ---
Test Reason : REPEAT Blood Pressure : */* mmHG Vent. Rate : 96 BPM Atrial Rate : 96 BPM P-R Int : 178 ms QRS Dur : 72 ms QT Int : 384 ms P-R-T Axes : 9 54 -12 degrees QTcB Int : 485 ms Normal sinus rhythm NS ST CHANGES Abnormal ECG Confirmed by Tu Lake ([id number]), editorial project manager OSMAN ZAZUETA ([id number]) on 08/09/2024 10:31:15 AM Referred By: Demarcus Morales Confirmed By: Tu Lake
[2024-08-08 23:37] LABS: T4 Free Direct 1.01 ng/dL (0.76-1.46)
[2024-08-09] VITALS: BP 143/93; PULSE 101; RESP 22; O2SAT 94
[2024-08-09 00:07] VITALS: BP 143/93; PULSE 101; RESP 22; TEMP 36.8; O2SAT 94
== END 2024-08-09 00:22 | disposition home or self-care (01) ==
PROVIDERS: Emergency Provider Emergency Medicine; PCP Family Medicine; Referring Provider Emergency Medicine; Visit Provider Emergency Medicine
DX: I47.10 Supraventricular tachycardia, unspecified (principal); I48.0 Paroxysmal atrial fibrillation; E11.9 Type 2 diabetes mellitus without complications; I10 Essential (primary) hypertension; Z87.891 Personal history of nicotine dependence; Z79.01 Long term (current) use of anticoagulants; Z79.899 Other long term (current) drug therapy
CPT/HCPCS: 80048; 83735; 84439; 84443; 85025; 93005; 96374; 99285; A4216; J0153

== ENCOUNTER → 2024-09-14 | Outpatient (CLI) | payer MEDICARE, OTHER, SELFPAY ==
[2024-09-14 12:22] LABS: Absolute Lymphocyte Count 1.81 X10^3/uL (0.83-4.51); Absolute Neutrophil Count 5.9 X10^3/uL (2.0-7.7); Basophil# 0.15 X10^3/uL; Basophil% 1.7 % (0-1); Eosinophil# 0.32 X10^3/uL; Eosinophils% 3.7 % (0-5); Hematocrit 39.4 % (37-47); Hemoglobin 13.1 g/dL (12.0-15.0); Lymphocyte # 1.81 X10^3/ul (0.83-4.51); Lymphocyte % 20.8 % (19-41); Mean Corp Hgb Conc 33.2 g/dL (32-36); Mean Corpuscular Hgb 28.7 pg (27.0-32.0); Mean Corpuscular Volume 86.2 fL (81-99); Mean Platelet Vol. 12.1 fl (6.2-12.0); Monocyte# 0.54 X10^3/uL; Monocyte% 6.2 % (0-10); NRBC Flagged by Analyzer 0 % (0-5); Neutrophil # 5.87 X10^3/uL (2.7-7.7); Neutrophil % 67.3 % (47-70); Platelet Count 289 K/mm3 (150-450); RBC Distribution Width CV 14.6 % (11.6-14.6); RBC Distribution Width SD 45.5 fl (35.1-43.9); Red Blood Count 4.57 M/mm3 (4.2-5.4); White Blood Count 8.7 K/mm3 (4.4-11.0)
[2024-09-14 12:32] LABS: Erythrocyte Sedimentation Rate 29 mm/hr (0-30)
[2024-09-14 13:11] LABS: AST(SGOT) 24 U/L (<=31); Alanine Aminotransfer ALT/SGPT 18 U/L (<=34); CRP 3.35 mg/L (0.0-3.0); EST Glomerular Filtration Rate 95 (>60)
== END | disposition home or self-care (01) ==
LOC: LAB 11:12
PROVIDERS: PCP Family Medicine; Referring Provider Internal Medicine Rheumatology; Visit Provider Internal Medicine Rheumatology
DX: M05.89 Other rheumatoid arthritis with rheumatoid factor of multiple sites (principal); R76.8 Other specified abnormal immunological findings in serum; R79.82 Elevated C-reactive protein (CRP); Z96.611 Presence of right artificial shoulder joint; Z79.52 Long term (current) use of systemic steroids; Z79.899 Other long term (current) drug therapy; Z79.631 Long term (current) use of antimetabolite agent; Z51.81 Encounter for therapeutic drug level monitoring; M18.0 Bilateral primary osteoarthritis of first carpometacarpal joints; M19.041 Primary osteoarthritis, right hand; M19.042 Primary osteoarthritis, left hand; M19.031 Primary osteoarthritis, right wrist; M19.032 Primary osteoarthritis, left wrist; Z79.620 Long term (current) use of immunosuppressive biologic; R74.8 Abnormal levels of other serum enzymes; R79.89 Other specified abnormal findings of blood chemistry; D89.2 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, unspecified; E55.9 Vitamin D deficiency, unspecified; E03.9 Hypothyroidism, unspecified; R53.83 Other fatigue; E88.09 Other disorders of plasma-protein metabolism, not elsewhere classified
CPT/HCPCS: 36415; 82565; 84450; 84460; 85025; 85652; 86140

== ENCOUNTER → 2024-12-23 | Outpatient (CLI) | payer MEDICARE, OTHER, SELFPAY ==
--- NOTE | 2024-12-23 13:05 | ECHOD_ITS ---
Reason For Study Reason For Study: ARRYTHMIA Procedure This was a 2D Doppler, Color Flow transthoracic echocardiogram. Exam performed in department. Left Ventricle Normal LV size. Mild concentric left ventricular hypertrophy. Left ventricular systolic function is normal. The left ventricular ejection fraction is 65 %. Stage 1 diastolic dysfunction. No regional wall motion abnormalities noted. Right Ventricle Normal RV size. Normal systolic function. Atria Normal left atrium. Normal right atrium. Mitral Valve Mild focal mitral valve calcification. Tricuspid Valve Normal tricuspid valve. Aortic Valve Trisinus/trileaflet aortic valve. Mild focal aortic valve calcification. Pulmonic Valve Normal pulmonic valve. Great Vessels Normal aortic root. The pulmonary artery is normal size. Inferior vena cava collapse with respiration. Pericardium/Pleural No pericardial effusion. MMode/2D Measurements & Calculations LVIDd: 3.6 cm IVSd: 1.2 cm Ao root diam: 3.2 cm LVIDs: 2.4 cm LVPWd: 1.3 cm FS: 32.8 % LAV(MOD-bp): 45.7 ml LVAd ap4: 19.8 cm2 SV(MOD-sp4): 35.6 ml LAV(MOD-bp) Indexed: 28.8 ml/m2 LVLd ap4: 6.2 cm SI(MOD-sp4): 22.5 ml/m2 LAV(MOD-sp2): 49.5 ml EDV(MOD-sp4): 52.3 ml LAV(MOD-sp4): 42.5 ml EDV(sp4-el): 53.5 ml LVAs ap4: 9.7 cm2 LVLs ap4: 5.0 cm ESV(MOD-sp4): 16.7 ml ESV(sp4-el): 15.9 ml EF(MOD-sp4): 68.0 % EF(sp4-el): 70.2 % SV(sp4-el): 37.6 ml LA A4 area: 15.1 cm2 LA dimension(2D): 4.0 cm RA A4 area: 9.8 cm2 Time Measurements MV dec time: 0.30 sec Doppler Measurements & Calculations MV E max samson: 51.9 cm/sec Lat Peak E' Samson: 11.2 cm/sec Med Peak E' Samson: 6.3 cm/sec MV A max samson: 60.1 cm/sec E/E' lat: 4.6 E/E' med: 8.2 MV E/A: 0.86 MV V2 max: 67.2 cm/sec Ao V2 max: 93.1 cm/sec MV max P.8 mmHg MV dec slope: 172.1 cm/sec2 Ao max P.5 mmHg MV V2 mean: 37.0 cm/sec Ao V2 mean: 64.3 cm/sec MV mean P.66 mmHg Ao mean P.9 mmHg MV V2 VTI: 20.5 cm Ao V2 VTI: 20.1 cm AV (velocity ratio): 0.79 LV V1 max: 75.9 cm/sec PA V2 max: 67.3 cm/sec LV V1 max P.3 mmHg PA V2 mean: 46.3 cm/sec LV V1 mean P.3 mmHg LV V1 mean: 53.3 cm/sec LV V1 VTI: 15.8 cm ECHO/Echo Complete Interpretation Summary Normal LV size. Left ventricular systolic function is normal. The left ventricular ejection fraction is 65 %. Stage 1 diastolic dysfunction. Mild concentric left ventricular hypertrophy. Ordering Physician: Randal Puri Referring Physician: Randal Puri Performed By: Zohra Hester RCS
== END | disposition home or self-care (01) ==
LOC: CVS 13:05
PROVIDERS: PCP Family Medicine; Referring Provider Internal Medicine Cardiovascular Disease; Visit Provider Internal Medicine Cardiovascular Disease
DX: I47.10 Supraventricular tachycardia, unspecified (principal); R06.02 Shortness of breath
CPT/HCPCS: 93306

== ENCOUNTER 2025-01-04 07:26 | Inpatient (IN) | payer MEDICARE, OTHER, SELFPAY ==
[2025-01-04] VITALS (23 sets, daily range): BP systolic 83–115; BP diastolic 45–76; PULSE 62–156; RESP 19–26; TEMP 36.1–37.1; O2SAT 94–100; BMI 21.2
--- NOTE | 2025-01-04 07:28 | RAD_ITS ---
PROCEDURE: CHEST 1 VIEW (PORTABLE) 01/04/2025 REASON FOR EXAM: TACHYPNEA, BILATERAL RALES TECHNIQUE: Frontal view of the chest. COMPARISON: May 11, 2024 FINDINGS: There is a reverse shoulder prosthesis in position on the right. Heart size and mediastinal configuration are within normal limits. There diffuse increased interstitial markings, likely a component of fibrosis, similar to the prior. There is no focal consolidation. There is no pneumothorax or effusion. No acute bony abnormality is identified. Aortic calcifications are visible. RAD/Chest 1 View (Portable) IMPRESSION: There diffuse increased interstitial markings, likely a component of fibrosis, similar to the prior. Reading Location: [facility]
--- NOTE | 2025-01-04 07:29 | EX.ED.DYSGE1 ---
HPI History of Present Illness Chief Complaint: Weakness Detail of Chief Complaint: Weakness for some time per paramedics. Patient is disoriented and not a re Informant: EMS Onset/Context/Timing Onset: - (Per paramedics she has been weak and not felt well for some time. has an appointment and will be here after his appointment) Context: - (Unknown, presumed gradual) Timing: - (Unknown) Quality: Generalized weakness Location: Not applicable Current Severity: Unknown Maximum Severity: Unknown Worsened by: Per squad blood sugar was 565. Patient not recall last time she checked BS Relieved by: Nothing Associated Symptoms Associated Symptoms: Polyuria, polydipsia, weakness, shortness of breath Narrative Narrative: Patient is 74-year-old woman with multiple medical problems which includes type 1 diabetes, hypertension, debility, rheumatoid arthritis on methotrexate, chronic atrial fibrillation and history of SVT per EMS who presents because of generalized weakness. She is not a good informant. She is disoriented to time. Will need to review prior records determine if this is a new finding or not. Patient endorses shortness of breath, probably urea and polydipsia. She presently endorses thirst and dry mouth. She does endorse shortness of breath. She denies chest discomfort of any type. She denies urologic symptoms other than possibly frequency. She specifically denied nocturia. Squad commented that her lungs were clear to auscultation. They gave her a 500 cc bolus because of the elevated blood sugar. Prior similar symptoms: Yes Recent Illness/Hospitalization: No [facility] Medical History SVT (supraventricular tachycardia) Palpitations Vitamin D deficiency Statin intolerance Atrial fibrillation Thrombocytopenia Left lower lobe pneumonia Hypokalemia CHERYLE (acute kidney injury) Osteoporosis Debility Inability to walk Chronic anemia Rheumatoid arthritis Hypothyroidism HTN (hypertension) Home Medications ?Medication ?Instructions ?Recorded ?Last Taken ?Type methotrexate sodium 2.5 mg tablet 12.5 mg PO QWEEK inflammation 03/15/22 04/10/24 History folic acid 1 mg tablet 1 mg PO DAILY 10/08/23 04/12/24 History acetaminophen 500 mg tablet 1,000 mg PO Q8 PRN fever or pain 04/12/24 Unknown History 1-10 levothyroxine 150 mcg tablet 150 mcg PO DAILY 10/28/24 10/28/24 History leucovorin calcium 5 mg tablet 5 mg PO QWEEK 09/29/24 Unknown History prednisone 5 mg tablet 4 mg PO QDAY 09/29/24 Unknown History insulin lispro 100 unit/mL 15 unit (0.15 mL) subcut TID #15 mL 11/19/24 Unknown Rx subcutaneous pen (Humalog KwikPen (U-100) Insulin) cholecalciferol (vitamin D3) 125 125 mcg PO QDAY 11/24/24 Unknown History mcg (5,000 unit) capsule multivitamin with minerals-folic 1 tab PO ONCE 11/24/24 Unknown History acid 80 mcg chewable tablet (Centrum Adult 50 Plus) insulin glargine 100 unit/mL (3 16 unit subcut QDAY 01/04/25 Unknown History mL) subcutaneous pen (Lantus Solostar U-100 Insulin) Allergy/AdvReac Type Severity Reaction Status Date / Time rosuvastatin Allergy Intermediate Illness Verified 01/04/25 07:29 lisinopril AdvReac Intermediate Cough Verified 01/04/25 07:29 egg (eggs) AdvReac Vomiting Verified 01/04/25 07:29 Family History Mother Diabetes Heart disease Father Diabetes Cancer Throat cancer Surgical History s/p right shoulder surgery H/O: Social History household members: spouse Smoking Status: Former smoker alcohol intake: never substance use type: does not use ROS ROS ED Respiratory/Chest Respiratory/Chest: Reports dyspnea Gastrointestinal Gastrointestinal: Reports nausea and other Details: She received Zofran by squad because of nausea. They report her nausea is better. Neurologic Neurologic: Reports weakness Endocrine Endocrinology: Reports polydipsia and polyuria EXAM Physical Exam Const Vital Signs: 01/04/25 07:27 01/04/25 07:29 01/04/25 07:30 Temperature 97.2 F L 97.5 F L Temperature Source Temporal Temporal Pulse Rate 146 H 145 H Respiratory Rate 22 H 22 H Respiratory Effort Short of Breath Blood Pressure 98/72 102/65 Blood Pressure Mean 80 77 Pulse Ox 97 99 Oxygen Delivery Method Room Air Room Air 07/22/25 08:32 Temperature 97.1 F L Temperature Source Temporal Pulse Rate 149 H Respiratory Rate 24 H Respiratory Effort Blood Pressure 104/60 Blood Pressure Mean 74 Pulse Ox 100 Oxygen Delivery Method Room Air Positive well developed and unkempt General Appearance ED: unkempt, well developed and other Blood pressure is low for patient when comparing to visit earlier this year, August 08. Note was authored by Dr. Demarcus Álvarez ; Negative for cyanotic, diaphoretic, NAD or pallor HEENT Reports dry mucous membranes HEENT Narrative: Head is atraumatic and normocephalic. Ears are normal. Posterior pharynx without erythema or exudate. Uvula is midline. Mouth ED: Yes dry mucous membranes Mouth: dry mucous membranes Eyes PERRL and EOMs intact bilaterally Eyes Narrative: Conjunctive is slightly pink. General Eye ED: Negative for scleral icterus Neck no lymphadenopathy, supple and no JVD Neck Narrative: Trachea is midline. There is no stridor. Chest Wall inspection of chest normal and palpation of chest normal Resp No normal respiratory effort and No clear to auscultation bilaterally Resp Narrative: There is minimal use of accessory muscles. Patient is breathing quicker than 23 times a minute. She has bibasilar rales noted. Breath sounds are symmetric. Cardio no murmurs Rate: tachycardic Rhythm: abnormal rhythm irregularly irregular GI normal to inspection, nondistended, normoactive bowel sounds, non-tender, non-distended and no masses; Negative for hepatosplenomegaly Back/Spine no CVA tenderness Extremity General Extremety ED: Negative for tenderness or other findings General Extremity: Negative for other findings Neuro No oriented x3, CN's II-XII intact bilaterally and no sensory deficits noted Sensorium / Orientation: orientation impaired; Negative for alert Psych Appearance: unkempt Mood & Affect: depressed Skin no rashes or lesions noted, no wounds and No skin turgor normal General Skin Exam: Negative for jaundice or pallor MDM MDM MDM Narrative Medical decision making narrative: Prehospital EKG reveals atrial fibs with RVR. With her now having bibasilar rales no additional fluid was given because of concern for CHF since paramedics reported clear lungs. This may also represent pneumonia. Her blood sugar is elevated. With her being tachypneic and has ketotic odor to her breath concern she is in DKA. DKA order set was initiated. As previously noted fluids were not administered because of concern for CHF. Haney was placed for accurate I's and O's and to obtain UA which she is not capable of giving. Need to determine if her mental status is acute or not and if this is metabolic versus infectious. She has a history of type 1 diabetes that is poorly controlled. The atrial fibrillation is new since August 08, 2024. Since she is on levothyroxine we will obtain a TSH. Also need to evaluate for cardiac ischemia. Since onset is unknown she is not a candidate for cardioversion. Since she is on metoprolol will administer IV metoprolol for rate control. History & Record Review Additional record(s) reviewed:: Prior outpatient record (Outpatient office visit with endocrinology, nurse practitioner Erin Landis's note was reviewed. Chief complaint was follow-up for diabetes. was present. Assessment was type 1 diabetes with hyperglycemia chronic and uncontrolled. Goal is A1c of less than 7.5. There is not been achieve), Prior ED visit (Patient was seen by Dr. Demarcus Hardy on August 08, 2024 for palpitations. Patient was diagnosed with supraventricular tachycardia at that time. Per that document she also has a history of cardioversion and paroxysmal atrial fibrillation. Per that record she was on Eliquis. Eliquis is not listed as) and Prior labs Lab Data Attestation: I reviewed the patient's lab results. Lab results narrative: White count is elevated at 28.6 thousand with shift. There is no bandemia. H&H is unremarkable. This may be a stress response versus infection. Will obtain a procalcitonin level to help potentially differentiate. Urinalysis reveals psoas gravity of 1.020 with proteinuria, glucosuria and ketones. Negative nitrites positive leukoesterase. Micro is remarkable for 5-10 WBCs. There is no bacteria. [id number] glucose is greater than 500. Suspect patient is in DKA. After her liter infusion she will have received approximately 30 cc/kg. Will start on insulin drip once ABG results are available. Patient has evidence of pseudo hyponatremia. CO2 is 3. Anion gap is 32. BUN and creatinine are 35 and 1.24 respectively with an estimated GFR 46. Glucose is 552. First troponin is elevated at 20. Serial enzymes were ordered. Labs: Laboratory Results - last 24 hr 01/04/25 01/04/2501/04/25 07:33 07:37 07:58 WBC 28.6 H RBC 4.20 Hgb 12.4 Hct 40.6 MCV 96.7 MCH 29.5 MCHC 30.5 L RDW Std Deviation 50.8 H RDW Coeff of Mateus 14.6 Plt Count 285 MPV 12.3 H Immature Gran % (Auto) 1.000 H Neut % (Auto) 92.2 H Lymph % (Auto) 4.2 L Daniels % (Auto) 2.3 Eos % (Auto) 0.0 Baso % (Auto) 0.3 Absolute Neuts (auto) 26.3 H Absolute Lymphs (auto) 1.21 Nucleated RBC % 0 Differential Comment SCANNED Sodium 129 L Potassium 5.2 H Chloride 94 L Carbon Dioxide 3.0 L* Anion Gap 32 H BUN 35 H Creatinine 1.24 H Estim Creat Clear Calc 35.41 L Est GFR (MDRD) Non-Af 46 L BUN/Creatinine Ratio 28.5 H Glucose 552 H* Calcium 9.3 Troponin T High Sens 20 H b-Hydroxybutyric mmol/L 9.0 H Urine Color Yellow Urine Clarity Sl. Cloudy Urine pH 6.0 Ur Specific [place] 1.020 Urine Protein 30 H Urine Glucose (UA) 1000 H Urine Ketones 150 A* Urine Occult Blood Negative Urine Nitrite Negative Urine Bilirubin Negative Urine Urobilinogen Normal Ur Leukocyte Esterase 500 H Urine RBC 0 SEEN Urine WBC 5-10 SEEN Ur Squamous Epith Cells 0 SEEN Urine Bacteria 0 SEEN Urine Mucus 0 SEEN POC Glucose > 500 H* ABG Data Attestation: I personally reviewed and interpreted this ABG as follows: Interpretation: ABG reveals a metabolic acidosis. pH is 7.14, bicarb 5.1, total CO2 6, base excess -24, PCO2 14.8, PO2 132. ABG results: ABG 01/04/25 08:18 Specimen Type ART Sample Site R Brach pH 7.14 L* Bicarbonate Actual 5.1 L Total CO2 6 Base Excess -24 L O2 Saturation 98 ABG pCO2 14.8 L* ABG pO2 132 H Driss Test Positive O2 Delivery Device Room Air Vent Mode Not entered Crit Call To/Read Back Yes Blood Gas Notified Whom smith Blood Gas Notified Time 08:19:45 Radiography Chest X-Ray - ED: 1 View, Read by ED Physician (Slightly lordotic rotated view. There is a single portable view April 12 uses comparison. There is a difference in penetration. There is chronic parenchymal changes. There is no effusion or obvious infiltrate. There is no pneumothorax. Osseous structures are no acute process.) and Unchanged Diagnostic Testing: Clinical Impression(s) from Imaging Studies Chest X-Ray 01/04/25 07:28 IMPRESSION: There diffuse increased interstitial markings, likely a component of fibrosis, similar to the prior. Reading [facility] Initial EKG: Attestation: I personally reviewed and interpreted this EKG as follows: Interpretation: Atrial Fibrillation (Rate is 160. Patient is nonseptic ST-T wave changes which may be rate dependent. QRS duration 78 ms. QT duration is 276 ms. [place] is to the right. Prior EKG performed August 08, 2024 reveals a sinus rhythm.) Management Discussion w/another healthcare provider: Hospitalist (Case was discussed with Dr. Eric De Los Santos. Admission ICU) Treatment and Re-Evaluation :: Since there is no evidence of heart failure on the chest x-ray will administer 1 L of normal saline wide open. This is equivalent to approximately 20 cc/kg. Blood cultures obtained since her white count is markedly elevated. Will await urine results since the urine. Clear and not turbid to suggest source of infection. This also may be a stress response. After results of ABG were reviewed patient was started on insulin drip. Secondary was asked to call hospitalist at [id number] for admission to ICU Critical Care Time Critical Care Time: Yes Critical care time (excluding procedures): 30-74 minutes (33), Including time spent: (History, physical, documentation, independent of potation of the laboratory results, chest x-ray treatment for A-fib RVR, treatment for DKA treatment for an cephalopathy), Discussing w/Consultants and Arranging Admission or Transfer Discharge Plan Dx/Rx/DC Orders Clinical Impression: Diabetic ketoacidosis associated with type 1 diabetes mellitus, Hypothyroidism, Rheumatoid arthritis, Acute metabolic encephalopathy, Atrial fibrillation with rapid ventricular response, Acute renal insufficiency, Acute prerenal azotemia, Acute hypotension Disposition Disposition: [facility]
--- NOTE | 2025-01-04 07:30 | EKG12_ITS ---
Test Reason : Blood Pressure : */* mmHG Vent. Rate : 160 BPM Atrial Rate : * BPM P-R Int : * ms QRS Dur : 78 ms QT Int : 276 ms P-R-T Axes : * 192 -12 degrees QTcB Int : 450 ms Critical Test Result: High HR Poor data quality, interpretation may be adversely affected Atrial fibrillation with rapid ventricular response Lateral infarct , age undetermined Abnormal ECG Confirmed by Tu Lake ([id number]), web editor OSMAN ZAZUETA ([id number]) on 01/05/2025 1:46:17 PM Referred By: Confirmed By: Tu Lake
[2025-01-04 07:52] LABS: Differential Indicated SCAN CRITERIA MET; Hematocrit 40.6 % (37-47); Hemoglobin 12.4 g/dL (12.0-15.0); Immature Granulocytes Count 0.300 X10^3/uL (0.0-0.0); Mean Corp Hgb Conc 30.5 g/dL (32-36); Mean Corpuscular Volume 96.7 fL (81-99); Mean Platelet Vol. 12.3 fl (6.2-12.0); NRBC Flagged by Analyzer 0 % (0-5); POSITIVE DIFFERENTIAL YES; Platelet Count 285 K/mm3 (150-450); RBC Distribution Width CV 14.6 % (11.6-14.6); RBC Distribution Width SD 50.8 fl (35.1-43.9); Red Blood Count 4.20 M/mm3 (4.2-5.4); White Blood Count 28.6 K/mm3 (4.4-11.0)
[2025-01-04 08:06] LABS: Mucous, Urine 0 SEEN /hpf (<or=2+); Red Blood Cells-Urine 0 SEEN /hpf (0-5); Squamous Epithelial Cells - UA 0 SEEN /hpf (5-10)
[2025-01-04 08:08] LABS: Color, Urine Yellow (Yellow); Glucose, Dipstick 1000 mg/dl (Normal); Leukocyte Esterase-Dipstick 500 /ul (Negative); Nitrite-Dipstick Negative (Negative); Occult Blood-Urine Negative /ul (Negative); Protein-Dipstick 30 mg/dl (Negative); Specific Gravity, Urine 1.020 (1.002-1.030); Urine Bilirubin Dipstick Negative (Negative)
[2025-01-04 08:10] LABS: Ketone-Dipstick 150 mg/dl (Negative)
[2025-01-04] MEDS: 0.9% Normal Saline (1000mL) 1,000 ML 1000 ML IV (08:11)
[2025-01-04 08:13] LABS: Differential Comment SCANNED
--- NOTE | 2025-01-04 08:13 | NURSING ---
Recieved call from lab stating urine ketones are 150. Dr Ku notified
[2025-01-04 08:22] LABS: Allen Test Positive; Base Excess -24 mmol/L (-2 to +2); PO2 132 mmHG (75-100); SITE R Brach; SO2 98 % (95-99); Time Given 08:19:45
[2025-01-04 08:22] LABS: Troponin T High Sensitivity 20 ng/L (<=14)
[2025-01-04 08:30] LABS: Anion Gap 32 (5-15); BUN 35 mg/dL (4-19); BUN/Creat Ratio 28.5 RATIO (10-20); Calcium,Total 9.3 mg/dL (7.6-11.0); Carbon Dioxide 3.0 mmol/L (21.0-32.0); Chloride 94 mmol/L (98-108); Estimated Creatinine Clearance 35.41 ml/min (50-250); Glucose 552 mg/dL (70-99); Potassium 5.2 mmol/L (3.3-5.1)
--- NOTE | 2025-01-04 08:30 | NURSING ---
Received call from [facility] stating CO2 3.0 and Glucose is 552. Dr Mame Ku notified
[2025-01-04 08:34] LABS: BETA-HYDROXYBUTYRATE 9.0 mmol/L (0.0-0.3)
[2025-01-04] MEDS: Insulin Lispro 100 UNIT in 0.9% Normal Saline (100mL Bag) 99 ML 5.6 UNIT CONT INF (08:50)
[2025-01-04 09:00] LABS: Procalcitonin 0.26 ng/mL (<=0.10)
--- NOTE | 2025-01-04 09:21 | ED.RN ---
this RN called report to [facility] ICU
[2025-01-04] MEDS: 0.9% Normal Saline (1000mL) 1,000 ML 250 ML IV (10:25)
[2025-01-04 10:35] LABS: Troponin T High Sens 2 HR 22 ng/L (<=14)
[2025-01-04] MEDS: 0.9% Normal Saline (1000mL) 1,000 ML 999 ML IV (11:10)
[2025-01-04] MEDS: Heparin Injection (Vial) 5,000 UNIT/ML VIAL 5000 UNIT SC ×2 (11:12→20:57)
[2025-01-04] MEDS: Dext 5%-0.45% NS 1,000 ML 150 ML IV (11:30)
[2025-01-04 12:56] LABS: Troponin T High Sens 4 HR 22 ng/L (<=14)
[2025-01-04 16:32] LABS: Magnesium 2.3 mg/dL (1.5-2.2)
[2025-01-04 16:33] LABS: Anion Gap 13 (5-15); Carbon Dioxide 15.1 mmol/L (21.0-32.0); Chloride 106 mmol/L (98-108); Potassium 4.4 mmol/L (3.3-5.1)
--- NOTE | 2025-01-04 18:26 | PCM.HP.STD ---
HPI - General General Date of Admission: 01/04/25 Date of Service: 01/04/25 Chief Complaint: Elevated blood sugar HPI Narrative DURAN DEVI, is a 74 F who presents to the emergency room at [facility] due to elevated blood sugars that she noted at home. Patient is a type 2 diabetic. Other medical problems include paroxysmal A-fib. Workup in the emergency room included labs-her CBC was abnormal for a white blood cell count of 28.6, chemistry profile was abnormal for sodium of 129, potassium of 5.2, bicarb of 3, anion gap of 32, BUN of 35, and creatinine of 1.24. Patient's glucose was 552. Beta hydroxybutyric acid was 9. Troponin was elevated at 20 and 22. Patient was oriented as to person and place but not time. Patient was given IV fluids in the emergency room, and insulin drip was started, patient will be admitted to ICU for further care. [facility] Medical History SVT (supraventricular tachycardia) Palpitations Vitamin D deficiency Statin intolerance Atrial fibrillation Thrombocytopenia Left lower lobe pneumonia Hypokalemia CHERYLE (acute kidney injury) Osteoporosis Debility Inability to walk Chronic anemia Rheumatoid arthritis Hypothyroidism HTN (hypertension) Home Medications ?Medication ?Instructions ?Recorded ?Last Taken ?Type methotrexate sodium 2.5 mg tablet 12.5 mg PO QWEEK inflammation 03/15/22 01/04/25 History folic acid 1 mg tablet 1 mg PO DAILY supplement 10/08/23 01/03/25 History acetaminophen 500 mg tablet 1,000 mg PO Q8 PRN fever or pain 04/12/24 Unknown History 1-10 levothyroxine 150 mcg tablet 150 mcg PO DAILY thyroid 04/12/24 01/04/25 History leucovorin calcium 5 mg tablet 5 mg PO QWEEK unknown 09/29/24 01/04/25 History prednisone 5 mg tablet 4 mg PO QDAY inflama 09/29/24 01/04/25 History insulin lispro 100 unit/mL 15 unit (0.15 mL) subcut TID #15 mL 11/19/24 01/04/25 Rx subcutaneous pen (Humalog KwikPen (U-100) Insulin) cholecalciferol (vitamin D3) 125 125 mcg PO QDAY supplement 11/24/24 01/03/25 History mcg (5,000 unit) capsule multivitamin with minerals-folic 1 tab PO ONCE supplement 11/24/24 01/04/25 History acid 80 mcg chewable tablet (Centrum Adult 50 Plus) apixaban 5 mg tablet (Eliquis) 5 mg PO BID A-Fib 01/04/25 01/04/25 History insulin glargine 100 unit/mL (3 16 unit subcut QDAY diabetes 01/04/25 01/04/25 History mL) subcutaneous pen (Lantus Solostar U-100 Insulin) Allergy/AdvReac Type Severity Reaction Status Date / Time rosuvastatin Allergy Intermediate Illness Verified 01/04/25 07:29 lisinopril AdvReac Intermediate Cough Verified 01/04/25 07:29 egg (eggs) AdvReac Vomiting Verified 01/04/25 07:29 Family History Mother Diabetes Heart disease Father Diabetes Cancer Throat cancer Surgical History s/p right shoulder surgery H/O: Social History household members: spouse Smoking Status: Former smoker alcohol intake: never substance use type: does not use ROS ROS Narrative Patient was an unreliable informant due to metabolic encephalopathy Vital Signs Vital Signs Vital Signs: 01/04/25 07:27 01/04/25 07:29 01/04/25 07:30 Temperature 97.2 F L 97.5 F L Temperature Source Temporal Temporal Pulse Rate 146 H 145 H Respiratory Rate 22 H 22 H Respiratory Effort Short of Breath Blood Pressure 98/72 102/65 Blood Pressure Mean 80 77 Blood Pressure Source Blood Pressure Position Blood Pressure Location Pulse Ox 97 99 Oxygen Delivery Method Room Air Room Air 01/04/25 08:32 01/04/25 09:00 01/04/25 09:23 Temperature 97.1 F L 97.4 F L 97.6 F L Temperature Source Temporal Temporal Temporal Pulse Rate 149 H 156 H 141 H Respiratory Rate 24 H 25 H 23 H Respiratory Effort Blood Pressure 104/60 89/67 L 89/67 L Blood Pressure Mean 74 74 74 Blood Pressure Source Monitor Blood Pressure Position Semi-Fowlers Blood Pressure Location Left Arm Pulse Ox 100 100 100 Oxygen Delivery Method Room Air Room Air Room Air 01/04/25 09:38 01/04/25 09:42 01/04/25 09:43 Temperature 97.0 F L Temperature Source Pulse Rate 145 H 147 H 140 H Respiratory Rate 22 H 20 H Respiratory Effort Blood Pressure 83/67 L 89/67 L Blood Pressure Mean 72 74 Blood Pressure Source Monitor Blood Pressure Position Semi-Fowlers Blood Pressure Location Left Arm Pulse Ox 99 100 Oxygen Delivery Method Room Air 01/04/25 09:53 01/04/25 10:08 01/04/25 11:00 Temperature 97.9 F Temperature Source Temporal Pulse Rate 151 H 143 H 142 H Respiratory Rate 26 H 24 H 24 H Respiratory Effort Blood Pressure 85/62 L 88/60 L 83/68 L Blood Pressure Mean 69 69 73 Blood Pressure Source Monitor Monitor Blood Pressure Position Semi-Fowlers Semi-Fowlers Blood Pressure Location Left Arm Left Arm Pulse Ox 97 98 100 Oxygen Delivery Method Room Air Room Air Room Air 01/04/25 12:00 01/04/25 13:00 01/04/25 14:00 Temperature Temperature Source Pulse Rate 150 H 147 H 144 H Respiratory Rate 26 H 24 H 22 H Respiratory Effort Blood Pressure 92/54 L 98/59 L 101/72 Blood Pressure Mean 66 72 81 Blood Pressure Source Monitor Monitor Monitor Blood Pressure Position Semi-Fowlers Semi-Fowlers Semi-Fowlers Blood Pressure Location Left Arm Right Arm Right Arm Pulse Ox 94 97 98 Oxygen Delivery Method Room Air Room Air Room Air 01/04/25 15:00 01/04/25 16:00 01/04/25 17:00 Temperature Temperature Source Pulse Rate 70 71 68 Respiratory Rate 20 H 20 H 20 H Respiratory Effort Blood Pressure 98/62 98/51 L 94/62 Blood Pressure Mean 74 66 72 Blood Pressure Source Monitor Monitor Monitor Blood Pressure Position Semi-Fowlers Semi-Fowlers Supine Blood Pressure Location Left Arm Right Arm Left Arm Pulse Ox 100 98 96 Oxygen Delivery Method Room Air Room Air Room Air 01/04/25 18:00 Temperature Temperature Source Pulse Rate 67 Respiratory Rate 24 H Respiratory Effort Blood Pressure 104/51 L Blood Pressure Mean 68 Blood Pressure Source Monitor Blood Pressure Position Semi-Fowlers Blood Pressure Location Left Arm Pulse Ox 98 Oxygen Delivery Method Room Air Weight Weight: 56.109 kg Body Mass Index (BMI) 21.2 Physical Exam Const alert and no apparent distress General Appearance: cooperative, well kempt and well developed Orientation / Consciousness: awake, oriented to person and oriented to place HEENT normocephalic and head/scalp atraumatic HEENT Narrative: Mucous membranes were dry Eyes PERRL, EOMs intact bilaterally and conjunctivae normal Neck supple, no JVD, thyroid normal and no carotid bruits General: trachea midline Resp normal respiratory effort, no retractions, no use of accessory muscles and clear to auscultation bilaterally Auscultation: Negative for rales, rhonchi or wheezes Cardio regular rate, regular rhythm, S1 normal heart sound, S2 normal heart sound, no murmurs, no rub and no gallops GI normal to inspection, nondistended, normoactive bowel sounds, soft to palpation, non-tender and non-distended Extremity no clubbing, cyanosis or edema Skin no rashes or lesions noted General Skin Exam: no breakdown Neuro CN's II-XII intact bilaterally, moves all extremities, no focal motor deficits and no sensory deficits noted Sensorium / Orientation: awake, alert, oriented to person and oriented to place Speech: speech normal Psych affect normal Results Lab / Micro Data 01/04/25 07:37 01/04/25 14:20 Labs: Laboratory Results - last 24 hr 01/04/25 07:33: POC Glucose > 500 H* 01/04/25 07:37: WBC 28.6 H, RBC 4.20, Hgb 12.4, Hct 40.6, MCV 96.7, MCH 29.5, MCHC 30.5 L, RDW Std Deviation 50.8 H, RDW Coeff of Mateus 14.6, Plt Count 285, MPV 12.3 H, Immature Gran % (Auto) 1.000 H, Neut % (Auto) 92.2 H, Lymph % (Auto) 4.2 L, Branch % (Auto) 2.3, Eos % (Auto) 0.0, Baso % (Auto) 0.3, Absolute Neuts (auto) 26.3 H, Absolute Lymphs (auto) 1.21, Nucleated RBC % 0, Differential Comment SCANNED, Sodium 129 L, Potassium 5.2 H, Chloride 94 L, Carbon Dioxide 3.0 L*, Anion Gap 32 H, BUN 35 H, Creatinine 1.24 H, Estim Creat Clear Calc 35.41 L, Est GFR (MDRD) Non-Af 46 L, BUN/Creatinine Ratio 28.5 H, Glucose 552 H*, Calcium 9.3, Troponin T High Sens 20 H, b-Hydroxybutyric mmol/L 9.0 H, Procalcitonin 0.26 H 01/04/25 07:58: Urine Color Yellow, Urine Clarity Sl. Cloudy, Urine pH 6.0, Ur Specific [place] 1.020, Urine Protein 30 H, Urine Glucose (UA) 1000 H, Urine Ketones 150 A*, Urine Occult Blood Negative, Urine Nitrite Negative, Urine Bilirubin Negative, Urine Urobilinogen Normal, Ur Leukocyte Esterase 500 H, Urine RBC 0 SEEN, Urine WBC 5-10 SEEN, Ur Squamous Epith Cells 0 SEEN, Urine Bacteria 0 SEEN, Urine Mucus 0 SEEN 01/04/25 08:36: POC Glucose 405 H 01/04/25 10:04: POC Glucose 273 H 01/04/25 10:09: Troponin T Hi Sens 2 Hr 22 H 01/04/25 11:00: POC Glucose 172 H 01/04/25 12:05: Troponin T Hi Sens 4Hr 22 H, POC Glucose 145 H 01/04/25 13:07: POC Glucose 137 H 01/04/25 14:20: Sodium 134, Potassium 4.4, Chloride 106, Carbon Dioxide 15.1 L, Anion Gap 13, Phosphorus 2.0 L, Magnesium 2.3 H 01/04/25 15:04: POC Glucose 129 H 01/04/25 16:03: POC Glucose 129 H 01/04/25 17:00: POC Glucose 128 H ABG Data ABG results: ABG 01/04/25 08:18 Specimen Type ART Sample Site R Brach pH 7.14 L* Bicarbonate Actual 5.1 L Total CO2 6 Base Excess -24 L O2 Saturation 98 ABG pCO2 14.8 L* ABG pO2 132 H Driss Test Positive O2 Delivery Device Room Air Vent Mode Not entered Crit Call To/Read Back Yes Blood Gas Notified Whom smith Blood Gas Notified Time 08:19:45 Imaging Radiology Impression Chest X-Ray 01/04/25 07:28 IMPRESSION: There diffuse increased interstitial markings, likely a component of fibrosis, similar to the prior. Reading Location: [facility] Assessment & Plan Assessment/Plan (1) Diabetic ketoacidosis: PLAN: Plan 1. Diabetic ketoacidosis secondary to uncontrolled type 2 diabetes-patient will be admitted to ICU, IV fluids will be administered and patient will remain on insulin drip, labs will be monitored #2 paroxysmal atrial fibrillation-patient has a history of paroxysmal A-fib, she is presently in atrial fibrillation, her rate will be monitored, she is on anticoagulation #3 hypothyroidism-patient is on Synthroid #4 rheumatoid arthritis-patient is on methotrexate with leucovorin, these will be held Total clinical time spent by myself addressing the patient's medical issues, reviewing all of her data, and collaborating with patient's care team: 75 minutes Charges/Coding Visit Charges Inpatient E&M: 17583 Init Hosp L3
[2025-01-04 19:13] LABS: Anion Gap 10 (5-15); Carbon Dioxide 17.1 mmol/L (21.0-32.0); Chloride 107 mmol/L (98-108); Magnesium 2.2 mg/dL (1.5-2.2); Potassium 3.9 mmol/L (3.3-5.1)
[2025-01-04] MEDS: Potassium Phosphate 21 MM in 0.9% Normal Saline (250mL Bag) 250 ML 84 MM IV (20:03)
[2025-01-04] MEDS: Insulin Glargine-YFGN 100 UNIT/ML Pen 15 UNIT SC (20:04)
[2025-01-04] MEDS: 0.9% Normal Saline (1000mL) 1,000 ML 125 ML IV (20:04)
[2025-01-04] MEDS: 0.9% Saline Lock 10 ML Syringe IV (20:56)
--- NOTE | 2025-01-04 21:19 | PCM.HOSP.N ---
Hospitalist Note Closed gap, transitioned to diet, will MAP < 65, on IVFs, procal not marked elevated, CXR unremarkable, UA unremarkable.
[2025-01-05] VITALS (13 sets, daily range): BP systolic 82–131; BP diastolic 46–68; PULSE 61–90; RESP 17–26; TEMP 36.8–36.9; O2SAT 93–99; BMI 21.6
[2025-01-05] MEDS: 0.9% Normal Saline (1000mL) 1,000 ML 125 ML IV (03:58)
[2025-01-05] MEDS: 0.9% Saline Lock 10 ML Syringe IV (04:00)
[2025-01-05 04:38] LABS: Anion Gap 11 (5-15); BUN 20 mg/dL (4-19); BUN/Creat Ratio 31.3 RATIO (10-20); Calcium,Total 8.4 mg/dL (7.6-11.0); Carbon Dioxide 16.0 mmol/L (21.0-32.0); Chloride 110 mmol/L (98-108); Estimated Creatinine Clearance 54.89 ml/min (50-250); Glucose 111 mg/dL (70-99); Potassium 3.6 mmol/L (3.3-5.1)
[2025-01-05 05:22] LABS: Hematocrit 27.6 % (37-47); Hemoglobin 9.4 g/dL (12.0-15.0); Immature Granulocytes Count 0.070 X10^3/uL (0.0-0.0); Mean Corp Hgb Conc 34.1 g/dL (32-36); Mean Corpuscular Volume 88.5 fL (81-99); Mean Platelet Vol. 11.9 fl (6.2-12.0); NRBC Flagged by Analyzer 0 % (0-5); Platelet Count 166 K/mm3 (150-450); RBC Distribution Width CV 15.0 % (11.6-14.6); RBC Distribution Width SD 47.8 fl (35.1-43.9); Red Blood Count 3.12 M/mm3 (4.2-5.4); White Blood Count 12.1 K/mm3 (4.4-11.0)
--- NOTE | 2025-01-05 07:30 | EKG12_ITS ---
Test Reason : PCI Blood Pressure : */* mmHG Vent. Rate : 63 BPM Atrial Rate : 63 BPM P-R Int : 168 ms QRS Dur : 72 ms QT Int : 434 ms P-R-T Axes : 79 10 36 degrees QTcB Int : 444 ms Normal sinus rhythm Normal ECG When compared with ECG of 04-Jan-2025 07:39, MANUAL COMPARISON REQUIRED DATA IS UNCONFIRMED Confirmed by Tu Lake ([id number]), scientific publications editor NATI HUGO ([id number]) on 01/06/2025 11:29:22 AM Referred By: Confirmed By: Tu Lake
[2025-01-05] MEDS: Insulin Glargine-YFGN 100 UNIT/ML Pen 15 UNIT SC (07:51)
[2025-01-05] MEDS: Heparin Injection (Vial) 5,000 UNIT/ML VIAL 5000 UNIT SC (07:52)
--- NOTE | 2025-01-05 11:02 | CASEMGMT ---
Addendum entered by Vickey Robbins 01/05/25 15:42: Pt has an order for DC placed. See PT praveena. MARILYN HECK to the pt room at this time. Pt's at bedside. Pt states that she still feels safe returning home today with her SO and denies the need for HH or OP Tx. Pt agrees. Educated the pt and pt's on the importance on caring for the pt's DM as best as they can. Pt and pt's agree and deny any further questions or concerns at this time. Original Note: MARILYN HECK Assessment Face to Face with patient for initial transition planning/care coordination assessment. MARILYN HECK introduced self and role at [facility], pt voices understanding. Pt is A&Ox4 and is resting comfortably in bed and is calm. Pt able to state her name, current location, & the month. Pt also states, I fell at home. Offered Medical alert system resources. Pt declines and states that her is always there for her. Care providers, pharmacy, and demographics verified. Admitting dx: DKA LEISA Strata: 3 PCP: Eric Bravo Specialists: Rose (RA Locke) Preferred Pharmacy: [facility] Insurance: [facility] A/B, [facility] Prescription Benefit: Yes LNOK: Mir (H) Living Arrangements: Pt lives with her in a 3 story home with a FFSU and a flat entrance ADLs/IADLs: Pt states that she is indep at baseline. Pt states that she dresses herself and ambulates independently. Pt states that her and her rotate cooking meals. However, noted that the pt's 6-Click score is 13. PT is ordered and pending. CM to follow. Transportation: Pt states that she has her license but she does not typically drive. States that her drives and denies concerns DME: Pt states that she has a continuous BGM with sufficient supplies and sensors. Pt states that she has a backup manual BGM with sufficient supplies including lancets, EtOH swabs, and test strips. Pt states that she takes insulin shots and has enough pen needles. Pt denies concerns or needs regarding her DM. Inquired if the pt was having issues with checking her BS levels and taking her insulin prior to hospitalization. Pt declines. Pt also reports that she has a shower chair, grab bars, and FWW. HHC/SNF: Hx with [facility] HH. Denies SNF hx or needs Pt?s goal: Home Plan: At this time, the pt states that she wishes to return home with her once she is medically ready. Pt declines the need for any form of home care again. Pt denies OP tx needs. Noted that the pt is on Eliquis at home. Pt reports that she did use the co-pay savings card already. This RN CM educated the pt that we can wait for PT to evaluate to help with safe DC planning. Pt is agreeable. Pt denies further questions or concerns at this time. CM to follow. Ioana Robbins RN CM
--- NOTE | 2025-01-05 15:22 | DCINST_ITS ---
Discharge Instructions DC O2, CPAP, BIPAP needs Home O2 Discharge instructions: No Dressing / Incision Discharge Activity: Return to Normal Activity Weight Bearing Status: Weight bearing as tolerated (Use walker if necessary) Follow Up Care Test Results: Test results from this visit will be discussed in further detail at your follow- up appointment, if applicable. Discharge Plan Admission Admit Date/Time: 01/04/25 08:51 Primary Reason for Your Visit: DKA, uncontrolled type 2 diabetes Attending Provider: Eric De Los Santos Primary Care Provider: Eric Bravo Discharge Orders/Prescriptions Prescriptions: Continued leucovorin calcium 5 mg tablet 5 mg PO QWEEK prednisone 5 mg tablet 4 mg PO QDAY cholecalciferol (vitamin D3) 125 mcg (5,000 unit) capsule 125 mcg PO QDAY Centrum Adult 50 Plus 80 mcg tablet,chewable 1 tab PO ONCE methotrexate sodium 2.5 mg tablet 12.5 mg PO QWEEK Patient Comments: TAKE 5 (FIVE) tablets BY MOUTH per week folic acid 1 mg tablet 1 mg PO DAILY Eliquis 5 mg tablet 5 mg PO BID levothyroxine 150 mcg tablet 150 mcg PO DAILY acetaminophen 500 mg Tablet 1,000 mg PO Q8 PRN (Reason: fever or pain 1-10) Changed insulin lispro [Humalog KwikPen Insulin] 100 unit/mL insulin pen 10 unit subcut TID Qty: 15 6RF insulin glargine [Lantus Solostar U-100 Insulin] 100 unit/mL (3 mL) insulin pen 15 unit subcut 2XD Qty: 1 0RF Referrals / Follow Up: Eric Bravo DO [Primary Care Provider] - In 1 Week Disposition Disposition (needs filled in before D/C Order can be placed): Home, Self Care
--- NOTE | 2025-01-05 15:26 | PCM.DC.SUM ---
Providers Date of Admission: 01/04/25 Date of Discharge: 01/05/25 Primary Care Physician: Dr. Eric Bravo DO Reason For Visit: DKA Diagnosis Discharge Diagnosis (1) Diabetic ketoacidosis: Status: Resolved Code(s): E11.10 - Type 2 diabetes mellitus with ketoacidosis without coma Plan 1. Diabetic ketoacidosis secondary to uncontrolled type 2 diabetes-patient will be admitted to ICU, IV fluids will be administered and patient will remain on insulin drip, labs will be monitored #2 paroxysmal atrial fibrillation-patient has a history of paroxysmal A-fib, she is presently in atrial fibrillation, her rate will be monitored, she is on anticoagulation #3 hypothyroidism-patient is on Synthroid #4 rheumatoid arthritis-patient is on methotrexate with leucovorin, these will be held #5 metabolic encephalopathy secondary to #1 Total clinical time spent by myself addressing the patient's medical issues, reviewing all of her data, and collaborating with patient's care team: 75 minutes Medications at Discharge Home Medications methotrexate sodium 2.5 mg tablet 12.5 mg PO QWEEK inflammation 03/15/22 folic acid 1 mg tablet 1 mg PO DAILY supplement 10/08/23 acetaminophen 500 mg tablet 1,000 mg PO Q8 PRN fever or pain 1-10 04/12/24 levothyroxine 150 mcg tablet 150 mcg PO DAILY thyroid 04/12/24 leucovorin calcium 5 mg tablet 5 mg PO QWEEK unknown 09/29/24 prednisone 5 mg tablet 4 mg PO QDAY inflama 09/29/24 cholecalciferol (vitamin D3) 125 mcg (5,000 unit) capsule 125 mcg PO QDAY supplement 11/24/24 multivitamin with minerals-folic acid 80 mcg chewable tablet (Centrum Adult 50 Plus) 1 tab PO ONCE supplement 11/24/24 apixaban 5 mg tablet (Eliquis) 5 mg PO BID A-Fib 01/04/25 insulin glargine 100 unit/mL (3 mL) subcutaneous pen (Lantus Solostar U-100 Insulin) 15 unit (0.15 mL) subcut 2XD diabetes #1 mL 01/05/25 insulin lispro 100 unit/mL subcutaneous pen (Humalog KwikPen (U-100) Insulin) 10 unit (0.1 mL) subcut TID #15 mL 01/05/25 Hospital Course Operations None Procedures None Summary of Care Provided Minutes Spent on Discharge: 31 Hospital Course: 74-year-old white female presenting to the emergency room at [facility] due to elevated blood sugars at home. Workup in the emergency room showed a sodium of 129, anion gap of 32, BUN of 35 and creatinine of 1.24. Patient's glucose was 552. Patient was oriented to person and place but not time and appeared to be lethargic. Patient was admitted to ICU and placed on insulin drip, her sugars were brought under control and ultimately her anion gap closed and she was taken off the insulin drip. Patient's mental status improved. On 01/05/2025, patient was seen and examined: On examination she appeared in good health and spirits, she does not appear to be in any distress. Vital signs as documented. Skin warm and dry and without overt rashes. Neck without JVD, thyroid appears normal, trachea is midline, neck is supple. Lungs clear, normal air movement was noted. Heart exam notable for regular rhythm, normal sounds and absence of murmurs, rubs or gallops. Abdomen unremarkable and without evidence of organomegaly, masses, or abdominal aortic enlargement, bowel sounds are present in all 4 quadrants, no abdominal tenderness was noted. Extremities nonedematous, no cyanosis was noted, no clubbing was noted. Neuro: Cranial nerves II through XII are grossly intact, no focal motor deficits were noted, sensation to light touch and pinprick is intact, motor exam 5/5 throughout. Psych: Patient is alert and oriented x3, she does not appear anxious or depressed, she does not appear agitated. Patient was discharged home in stable condition on 01/05/2025 Weight / BMI Weight Weight: 57.5 kg Body Mass Index (BMI) 21.6 ABG / Lab / Microbiology Data 01/05/25 05:15 01/05/25 04:09 Laboratory: Laboratory Results - last 24 hr 01/04/25 14:20: Sodium 134, Potassium 4.4, Chloride 106, Carbon Dioxide 15.1 L, Anion Gap 13, Phosphorus 2.0 L, Magnesium 2.3 H 01/04/25 15:04: POC Glucose 129 H 01/04/25 16:03: POC Glucose 129 H 01/04/25 17:00: POC Glucose 128 H 01/04/25 18:00: Sodium 133, Potassium 3.9, Chloride 107, Carbon Dioxide 17.1 L, Anion Gap 10, Phosphorus 1.8 L, Magnesium 2.2 01/04/25 18:09: POC Glucose 129 H 01/04/25 19:23: POC Glucose 116 H 01/04/25 20:13: POC Glucose 101 01/04/25 20:54: POC Glucose 130 H 01/05/25 04:09: WBC Cancelled, Corrected WBC Cancelled, RBC Cancelled, Hgb Cancelled, Hct Cancelled, MCV Cancelled, MCH Cancelled, MCHC Cancelled, RDW Std Deviation Cancelled, RDW Coeff of Mateus Cancelled, Plt Count Cancelled, MPV Cancelled, Immature Gran % (Auto) Cancelled, Neut % (Auto) Cancelled, Lymph % (Auto) Cancelled, [place] % (Auto) Cancelled, Eos % (Auto) Cancelled, Baso % (Auto) Cancelled, Absolute Neuts (auto) Cancelled, Absolute Lymphs (auto) Cancelled, Total Counted Cancelled, Neutrophils % (Manual) Cancelled, Band Neutrophils % Cancelled, Lymphocytes % (Manual) Cancelled, Monocytes % (Manual) Cancelled, Eosinophils % (Manual) Cancelled, Basophils % (Manual) Cancelled, Metamyelocytes % Cancelled, Myelocytes % Cancelled, Promyelocytes % Cancelled, Blast Cells % Cancelled, Plasma Cell % (Manual) Cancelled, Other Cells % Cancelled, Nucleated RBC % Cancelled, Nucleated RBCs/100 WBC Cancelled, Differential Comment Cancelled, Diff Path Review Cancelled, Hypersegmented Neuts Cancelled, Atypical Lymphocytes Cancelled, Reactive Lymphocytes Cancelled, Smudge Cells Cancelled, Toxic Granulation Cancelled, Toxic Vacuolation Cancelled, Dohle Bodies Cancelled, Shanita Rods Cancelled, Platelet Estimate Cancelled, Plt Morphology Comment Cancelled, RBC Morphology Cancelled 01/05/25 04:09: RBC Morphology Cancelled, Polychromasia Cancelled, Hypochromasia Cancelled, Basophilic Stippling Cancelled, Anisocytosis Cancelled, Microcytosis Cancelled, Macrocytosis Cancelled, Spherocytes Cancelled, Sickle Cells Cancelled, Target Cells Cancelled, Tear Drop Cells Cancelled, Ovalocytes Cancelled, Stomatocytes Cancelled, Nam[place] Bodies Cancelled, Kyle Cells Cancelled, Bite Cells Cancelled, Crenated Cell Cancelled, Acanthocytes (Spur) Cancelled, Rouleaux Cancelled, Schistocytes Cancelled, Sodium 136, Potassium 3.6, Chloride 110 H, Carbon Dioxide 16.0 L, Anion Gap 11, BUN 20 H, Creatinine 0.65 L, Estim Creat Clear Calc 54.89, Est GFR (MDRD) Non-Af 94, BUN/Creatinine Ratio 31.3 H, Glucose 111 H, Calcium 8.4, Phosphorus 2.4 L 01/05/25 05:15: WBC 12.1 H, RBC 3.12 L, Hgb 9.4 L, Hct 27.6 L, MCV 88.5 D, MCH 30.1, MCHC 34.1 D, RDW Std Deviation 47.8 H, RDW Coeff of Mateus 15.0 H, Plt Count 166, MPV 11.9, Immature Gran % (Auto) 0.600, Neut % (Auto) 77.7 H, Lymph % (Auto) 15.8 L, [place] % (Auto) 4.4, Eos % (Auto) 1.2, Baso % (Auto) 0.3, Absolute Neuts (auto) 9.4 H, Absolute Lymphs (auto) 1.91, Nucleated RBC % 0 01/05/25 07:49: POC Glucose 70 L Microbiology: Microbiology 01/04/25 08:28 Blood Culture (Wb) - Anticubital Left Blood Culture - Preliminary No growth in 48 hours. 01/04/25 08:28 Blood Culture (Wb) - Other Blood Culture - Preliminary No growth in 48 hours. D/C Instructions Weight Bearing Status: Weight bearing as tolerated (Use walker if necessary) DC O2, CPAP, BIPAP Needs Home O2 Discharge instructions: No Meaningful Use Info Meaningful Use Meaningful Use Diagnoses (Choose all that apply): None applicable Discharge Plan Admission Admit Date/Time: 01/04/25 08:51 Primary Reason for Your Visit: DKA, uncontrolled type 2 diabetes Attending Provider: Eric De Los Santos Primary Care Provider: Eric Bravo Discharge Orders/Prescriptions Prescriptions: Continued leucovorin calcium 5 mg tablet 5 mg PO QWEEK prednisone 5 mg tablet 4 mg PO QDAY cholecalciferol (vitamin D3) 125 mcg (5,000 unit) capsule 125 mcg PO QDAY Centrum Adult 50 Plus 80 mcg tablet,chewable 1 tab PO ONCE methotrexate sodium 2.5 mg tablet 12.5 mg PO QWEEK Patient Comments: TAKE 5 (FIVE) tablets BY MOUTH per week folic acid 1 mg tablet 1 mg PO DAILY Eliquis 5 mg tablet 5 mg PO BID levothyroxine 150 mcg tablet 150 mcg PO DAILY acetaminophen 500 mg Tablet 1,000 mg PO Q8 PRN (Reason: fever or pain 1-10) Changed insulin lispro [Humalog KwikPen Insulin] 100 unit/mL insulin pen 10 unit subcut TID Qty: 15 6RF insulin glargine [Lantus Solostar U-100 Insulin] 100 unit/mL (3 mL) insulin pen 15 unit subcut 2XD Qty: 1 0RF Referrals / Follow Up: Eric Bravo DO [Primary Care Provider] - In 1 Week Disposition Disposition (needs filled in before D/C Order can be placed): Home, Self Care Charges/Coding Visit Charges Inpatient E&M: 72924 Disch Hosp >30min
--- NOTE | 2025-01-05 16:09 | PHA.DC.MR.R ---
Pharmacy [facility] has performed discharge medication reconciliation for this patient. The patient's discharge medication list was reviewed for discrepancies and discrepancies were resolved. Medications at Discharge Home Medications methotrexate sodium 2.5 mg tablet 12.5 mg PO QWEEK inflammation 03/15/22 folic acid 1 mg tablet 1 mg PO DAILY supplement 10/08/23 acetaminophen 500 mg tablet 1,000 mg PO Q8 PRN fever or pain 1-10 04/12/24 levothyroxine 150 mcg tablet 150 mcg PO DAILY thyroid 04/12/24 leucovorin calcium 5 mg tablet 5 mg PO QWEEK unknown 09/29/24 prednisone 5 mg tablet 4 mg PO QDAY inflama 09/29/24 cholecalciferol (vitamin D3) 125 mcg (5,000 unit) capsule 125 mcg PO QDAY supplement 11/24/24 multivitamin with minerals-folic acid 80 mcg chewable tablet (Centrum Adult 50 Plus) 1 tab PO ONCE supplement 11/24/24 apixaban 5 mg tablet (Eliquis) 5 mg PO BID A-Fib 01/04/25 insulin glargine 100 unit/mL (3 mL) subcutaneous pen (Lantus Solostar U-100 Insulin) 15 unit (0.15 mL) subcut 2XD diabetes #1 mL 01/05/25 insulin lispro 100 unit/mL subcutaneous pen (Humalog KwikPen (U-100) Insulin) 10 unit (0.1 mL) subcut TID #15 mL 01/05/25
== END 2025-01-05 15:50 | disposition home or self-care (01) | DRG 637 ==
LOC: ED 08:36 → ICU 09:27
PROVIDERS: Admitting Provider Internal Medicine; Emergency Provider Emergency Medicine; PCP Family Medicine; Visit Provider Internal Medicine
DX: E11.10 Type 2 diabetes mellitus with ketoacidosis without coma (principal); G93.41 Metabolic encephalopathy; M06.9 Rheumatoid arthritis, unspecified; E03.9 Hypothyroidism, unspecified; I10 Essential (primary) hypertension; I48.0 Paroxysmal atrial fibrillation; I95.9 Hypotension, unspecified; Z79.4 Long term (current) use of insulin; N28.9 Disorder of kidney and ureter, unspecified; R79.89 Other specified abnormal findings of blood chemistry; Z79.01 Long term (current) use of anticoagulants; Z79.52 Long term (current) use of systemic steroids; Z79.890 Hormone replacement therapy; Z79.899 Other long term (current) drug therapy; Z87.891 Personal history of nicotine dependence
CPT/HCPCS: 36600; 51702; 71045; 80048; 80051; 81001; 82010; 82803; 82962; 83735; 84100; 84145; 84484; 85025; 87040; 93005; 94762; 97161; 99285; A4216

== ENCOUNTER → 2025-05-06 | Outpatient (CLI) | payer MEDICARE, OTHER, SELFPAY ==
[2025-05-06 12:37] LABS: Cholesterol 191 mg/dL (<=200); Low Density Lipoprotein Calc. 115 mg/dL; Triglycerides 225 mg/dL; Very Low Density Lipoprotein 45 mg/dL (5-40); cholesterol:hdl ratio screen 5.15
== END | disposition home or self-care (01) ==
LOC: LAB 11:16
PROVIDERS: PCP Family Medicine; Referring Provider Family Medicine; Visit Provider Family Medicine
DX: E10.21 Type 1 diabetes mellitus with diabetic nephropathy (principal)
CPT/HCPCS: 36415; 80061

== ENCOUNTER → 2025-05-19 | Outpatient (CLI) | payer MEDICARE, OTHER, SELFPAY ==
[2025-05-19 13:10] LABS: Vitamin D,25 Hydroxy 33.6 ng/mL (30-100)
[2025-05-19 13:24] LABS: AST(SGOT) 29 U/L (<=31); Alanine Aminotransfer ALT/SGPT 15 U/L (<=34); Albumin, Serum 4.0 g/dL (3.4-4.8); Alkaline Phosphatase 104 U/L (35-104); Anion Gap 13 (5-15); BUN 19 mg/dL (4-19); BUN/Creat Ratio 33.8 RATIO (10-20); Calcium,Total 9.6 mg/dL (7.6-11.0); Carbon Dioxide 21.6 mmol/L (21.0-32.0); Chloride 103 mmol/L (98-108); Globulin 3.7 g/dL (2.2-4.2); Glucose 126 mg/dL (70-99); Potassium 4.6 mmol/L (3.3-5.1)
== END | disposition home or self-care (01) ==
LOC: LAB 10:59
PROVIDERS: PCP Family Medicine; Referring Provider Nurse Practitioner Family; Visit Provider Nurse Practitioner Family
DX: E10.65 Type 1 diabetes mellitus with hyperglycemia (principal); E03.9 Hypothyroidism, unspecified; E55.9 Vitamin D deficiency, unspecified
CPT/HCPCS: 36415; 80053; 82306; 84439; 84443

== ENCOUNTER 2025-05-26 12:53 | Outpatient (CLI) | payer MEDICARE, OTHER, SELFPAY ==
[2025-05-26 13:10] VITALS: BP 163/74; PULSE 70; RESP 16; TEMP 35.9; O2SAT 94; BMI 22.1
[2025-05-26] MEDS: 0.9% NaCl Peripheral Flush Adult IV (13:15)
[2025-05-26 13:48] VITALS: BP 157/67; PULSE 70; RESP 16
== END 2025-05-26 23:59 | disposition home or self-care (01) ==
LOC: MEDOUTP 12:54
PROVIDERS: PCP Family Medicine; Referring Provider Nurse Practitioner Family; Visit Provider Nurse Practitioner Family
DX: M81.0 Age-related osteoporosis without current pathological fracture (principal)
CPT/HCPCS: 96365; A4216; J3489

== ENCOUNTER 2025-06-10 19:52 | Emergency (ER) | payer MEDICARE, OTHER, SELFPAY ==
[2025-06-10] VITALS (14 sets, daily range): BP systolic 82–149; BP diastolic 50–75; PULSE 64–145; RESP 16–28; TEMP 36.4–36.6; O2SAT 95–99; BMI 21.3
--- NOTE | 2025-06-10 20:26 | EKG12_ITS ---
Test Reason : TACHYCARDIA Blood Pressure : */* mmHG Vent. Rate : 140 BPM Atrial Rate : * BPM P-R Int : * ms QRS Dur : 76 ms QT Int : 324 ms P-R-T Axes : * 9 204 degrees QTcB Int : 494 ms Critical Test Result: High HR Atrial fibrillation with rapid ventricular response ST & T wave abnormality, consider inferolateral ischemia Abnormal ECG Confirmed by Christopher Parra ([id number]), distillation operator helper NATI HUGO [id number]) on 06/17/2025 6:52:06 AM Referred By: DM Confirmed By: Christopher Parra
--- OUTSIDE RECORDS SUMMARY | 2025-06-10 20:34 | XMS RPT_ITS | CCD ---
Author Organization [facility] Care Team Providers Care Epic Interface Analyst Name Role Phone Tu Dotson Unavailable Celeste Grisel N Unavailable Grisel Alonso N Unavailable Dr. Eric Bravo Primary Care Provider [phone] Dr. Eric Bravo Referring Provider MANISH Damian Attending Provider [phone] Dr. Devin Leal Emergency Provider [phone] Kenneth Chin Admit Provider Dr. Kenneth Chin Other Provider Dr. Jason Giang Attending Provider Dr. Kenneth Chin Attending Provider Dr. Mónica Hardy Attending Provider Dr. Eric Bravo Primary Care Provider [phone] Kenneth Chin Referring Provider Dr. Randal Puri Attending Provider Dr. Randal Puri Referring Provider Dr. Eduardo Bhatt Emergency Provider Dr. Eric De Los Santos Admit Provider Dr. Eric De Los Santos Attending Provider Dr. Eric De Los Santos Other Provider HERNESTO, Dr. TEJADA Primary Care Unavailable Dr. KELLY SOTO Attending Unavailable Dr. Eric Bravo Primary Care Provider Dr. Eric Bravo Primary Care Provider Dr. Eduardo Bhatt Emergency Provider Dr. Eric De Los Santos Admit Provider Dr. Eric De Los Santos Attending Provider Dr. Eric De Los Santos Other Provider Eric Bravo DO Primary Care Provider Dr. Eric Bravo Primary Care Provider [phone] Dr. Franklyn Silva Emergency Provider Dr. Leyda Garcia Attending Provider Dr. Leyda Garcia Admit Provider Dr. Leyda Garcia Other Provider MD Wan Oh Attending Provider MD Wan Oh Other Provider Dr. Lana Parks Other Provider Dr. Lana Parks Attending Provider Dr. Eduardo Hicks Attending Provider Dr. Eduardo Hicks Other Provider Dr. Eduardo Hicks Referring Provider Dr. Eric Bravo Referring Provider Dr. Randal Puri Attending Provider Dr. Ruben Moreau Attending Provider Dr. Hu Almonte Chi Referring Provider Dr. Daniel Rubin Attending Provider Dr. Eric Bravo Primary Care Provider Dr. Franklyn Silva Emergency Provider Dr. Leyda Garcia Attending Provider Dr. Leyda Garcia Admit Provider Dr. Leyda Garcia Other Provider MD Wan Oh Attending Provider MD Wan Oh Other Provider Dr. Lana Parks Other Provider Dr. Eduardo Hicks Referring Provider Charly, Dr. Lana Alan Attending Provider Dr. Eduardo Hicks Attending Provider Dr. Eduardo Hicks Other Provider Dr. Eric Bravo Referring Provider Dr. Randal Puri Attending Provider Dr. Ruben Moreau Attending Provider Dr. Hu Almonte Chi Referring Provider Dr. Daniel Rubin Attending Provider Dr. Eric Bravo Primary Care Provider Dr. Eric Bravo Primary Care Provider Dr. Brandy Green Emergency Provider Dr. Eduardo Hicks Admit Provider Dr. Eduardo Hicks Attending Provider Dr. Eduardo Hicks Other Provider Dr. Kenneth Chin Attending Provider Dr. Kenneth Chin Other Provider KELLY SOTO Referring Unavailable Eric Bravo DO Primary Care Provider Dr. Eric Bravo DO Primary Care Provider Dr. Christopher Rose MD Attending Provider Dr. Christopher Rose MD Referring Provider Carmen SOLORIO, Dr. Tracy Attending Provider [phone] Demarcus Morales DO Referring Provider Dr. Demarcus Morales DO Emergency Provider Lawrence SOLORIO, Dr. Reyes Referring Provider Boby FINANCIAL UNDERWRITER-C, Erin Attending Provider Lawrence SOLORIO, Eric Ibrahim Primary Care Provider Lawrence SOLORIO, Dr. Reyes Primary Care Provider Rose CROSS, Dr. Christopher Nieves Attending Provider Rose CROSS, Dr. Christopher Nieves Referring Provider Jaxson CROSS, Dr. Tee Attending Provider Lawrence SOLORIO, Eric Ibrahim Primary Care Provider Lawrence SOLORIO, Dr. Reyes Primary Care Provider Lawrence SOLORIO, Dr. Reyes Referring Provider Boby FINANCIAL UNDERWRITER-C, Erin Attending Provider Jaxson CROSS, Dr. Tee Referring Provider Dr. Dima Smith MD Emergency Provider Filiberto SOLORIO, Dr. Reyes [facility] Dr. Reyes Attending Provider Filiberto SOLORIO, Dr. Reyes Other Provider Lawrence SOLORIO, Dr. Reyes Primary Care Provider Lawrence SOLORIO, Dr. Reyes Referring Provider Boby FINANCIAL UNDERWRITER-C, Erin Attending Provider Jaxson CROSS, Dr. Tee Attending Provider Dr. Tu Lake MD Attending Provider Dr. Tu Lake MD Referring Provider Eric Bravo Primary Care Unavailable Dejon Pearce Consulting Unavailable Dejon Pearce Admitting Unavailable Eric De Los Santos Attending Unavailable Eric Bravo Primary Care Unavailable Randal uPri Attending Unavailable Eric Bravo Primary Care Unavailable Tu Lake Referring Unavailable Tu Lake Attending Unavailable Eric Bravo Primary Care Unavailable Eric De Los Santos Attending Unavailable Tereletsky, Eric Consulting Unavailable Tereletsky, Eric Admitting Unavailable Lawrence, Eric Primary Care Unavailable Jaxson, Quincy Attending Unavailable Lawrence, Eric Primary Care Unavailable Christopher Rose Jr. Referring Unavaila ble Stainbrook Jr., Christopher Nieves Attending Unavaila ble Lawrence, Eric Primary Care Unavailable Tereletsky, Eric Attending Unavailable Tereletsky, Eric Admitting Unavailable Lawrence, Eric Primary Care Unavailable Stainbrojhonathan Jr., Christopher Nieves Referring Unavaila ble Stainbrook Jr., Christopher Nieves Attending Unavaila ble Lawrence, Eric Primary Care Unavailable Lawrence, Eric Referring Unavailable Erin Landis Attending Unavailable Stainbrook Jr., Christopher Nieves Attending Unavaila ble Stainbrook Jr., Christopher Nieves Referring Unavaila ble Lawrence, Eric Primary Care Unavailable Lawrence, Eric Primary Care Unavailable Novy, Kelly Referring Unavailable NovyKelly Attending Unavailable Le, Demarcus Referring Unavailable Le, Demarcus Attending Unavailable Lawrence, Eric Primary Care Unavailable Lawrence, Eric Primary Care Unavailable Stainbrook Jr., Christopher Nieves Attending Unavaila ble Stainbrook Jr., Christopher Nieves Referring Unavaila ble Lawrence, Eric Primary Care Unavailable Jaxson, Randal Referring Unavailable Jaxson, Quincy Attending Unavailable Lawrence, Eric Referring Unavailable Erin Landis Attending Unavailable Lawrence, Eric Primary Care Unavailable Lawrence, Eric Primary Care Unavailable Lawrence, Eric Referring Unavailable Erin Landis Attending Unavailable Lawrence, Eric Primary Care Unavailable Lawrence, Eric Referring Unavailable Jaxson, Randal Attending Unavailable Lawrence, Eric Primary Care Unavailable Eduardo Hicks Attending Unavailable Lawrence, Eric Primary Care Unavailable JoEduardo lofton Consulting Unavailable Jorolly Eduardo Admitting Unavailable Tereletsky, Eric Attending Unavailable Tereletsky, Eric Consulting Unavailable Lawrence, Eric Primary Care Unavailable Lawrence, Eric Referring Unavailable Artem Mora Attending Unavailable Lawrence, Eric Primary Care Unavailable Dejon Pearce Attending Unavailable Dejon Pearce Consulting Unavailable Dejon Pearce Admitting Unavailable Lawrence, Eric Primary Care Unavailable Lawrence, Eric Referring Unavailable Erin Landis Attending Unavailable Lawrence, Eric Primary Care Unavailable Stainbrojhonathan Menchaca, Christopher Nieves Attending Unavaila ble Stainbrook Jr., Christopher Nieves Referring Unavaila ble Lawrence, Eric Primary Care Unavailable Eduardo Hicks Consulting Unavailable Eduardo Hicks Admitting Unavailable Eric De Los Santos Attending Unavailable antiviral and free of infection. Hold 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 [...] ATB and/or antiviral and free of infection. HoldHumira if open wound can restart once wound [...] me in 4 months documented in this [facility]08-30-2023 Discharge summary Author Hu Almonte [facility] February 12, 2023 7:46pm Note Date/Time February 12, 2023 7: 42pm [facility] Medical Records Department [address] [place] [address] Discharge Summary 02/12/231936 MR#: [id number] Acct: [id number] Name: DURAN DEVI Rep #:[id number] : 1950 72 From: Hu Almonte MD PCP: Dr. Eric Bravo DO Status:ADM IN Location: [facility] TCU06-1 Providers Date of Admission: 01/13/23 Primary Care Physician: Dr. Eric Bravo DO Consultations 01/19/23 18:40 Consult: Podiatry Routine Consulting Provider: Dustin Young Reason for Consult: diabetic foot care EMERGENT Consult: No MD Notified: Yes Date Notified: 01/23/23 Time Notified: 09:00 Method of Notification: Verbal Reason For Visit: HUMERAL FRACTURE AND PUBIC RAMI FRACTURE Diagnosis Discharge Diagnosis (1) Debility: Status: Acute Code(s): R53.81 - Other malaise (2) Closed fracture of left proximal humerus: Status: Acute Code(s): S42.202A - Unspecified fracture of upper end of left humerus, initial encounter for closed fracture Qualifiers: Encounter type: initial encounter Fracture morphology: unspecified fracture morphology Qualified Code(s): S42.202A - Unspecified fracture of upperend of left humerus, initial encounter for closed fracture (3) Fracture of left inferior pubic ramus: Status: Acute Code(s): S32.592A - Other specified fracture of left pubis, initial encounter for closed fracture Qualifiers: Encounter type: initial encounter Fracture type: closed Qualified Code(s): S32.592A - Other specified fracture of left pubis, initial encounter for closed fracture (4) Diabetes mellitus: Status: Acute Code(s): E11.9 - Type 2 diabetes mellitus without complications (5) Chronic anemia: Status: Chronic Code(s): D64.9 - Anemia, unspecified (6) HTN (hypertension): Status: Chronic Code(s): I10 - Essential (primary) hypertension (7) Hypothyroidism: Status: Acute Code(s): E03.9 - Hypothyroidism, unspecified (8) Rheumatoid arthritis: Status: Acute Code(s): M06.9 - Rheumatoid arthritis, unspecified Plan 72 year old female with below past medical history hospitalized for left humerusfracture, left pelvis fracture, admitted to TCU with debility, here for rehabilitation, strengthening, prior to discharge home with . * Debility - PT/OT. * Pain - Tylenol 1000mg q8, Tramadol 50mg q6h prn, Oxycodone 5mg q4h prn pain. * Bowel - senna/colace 2 tablets bid. * Adult immunization - Administer pneumonia vaccine, covid19 vaccine, flu vaccine as appropriate. * DVT prophylaxis - Lovenox 40mg sc daily. * Rheumatoid arthritis - MTX 12.5mg per week, Folic acid 1mg daily, Prednisone 5mg daily. * Diabetes Mellitus II - Glargine 20 units qhs, Lispro 10 units tid. * Hypothyroidism - Levothyroxine 150mcg daily. * Hypertension - Losartan 100mg daily. * Hypomagnesemia - Magnesium 128mg daily. * Skin irritation - Calmoseptine topical bid, Lac-hydrin topical bid. * Tinea Corporis - Nystatin topical bid prn. * Depression - Sertraline 25mg daily, stable chronic long term 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 use, GDR not sydni mmended. * Insomnia - Doxepin 25mg qhs, stable use, GDR not recommended. Medications at Discharge Home Medications folic acid 400 mcg tablet 0.4 mg PO DAILY SUPPLEMENT 03/15/22 levothyroxine 150 mcg tablet 150 mcg PO DAILY THYROID 03/15/22 losartan 25 mg tablet 25 mg PO DAILY BLOOD PRESSURE 03/15/22 magnesium oxide 400 mg PO DAILY SUPPLEMENT 03/15/22 methotrexate sodium 2.5 mg tablet 12.5 mg PO QWEEK inflammation 03/15/22 prednisone 5 mg tablet 5 mg PO DAILY arthritis 01/10/23 sertraline 25 mg tablet 25 mg PO DAILY depression 01/10/23 insulin detemir U-100 100 unit/mL (3 mL) subcutaneous pen (Levemir FlexPen) 38 unit subcut QHS DMII 01/11/23 insulin aspart U-100 100 unit/mL (3 mL) subcutaneous pen (Novolog FlexPen U-100 Insulin aspart) 5 unit (0.05 mL) subcut TID glucose control #15 mL 01/13/23 acetaminophen 500 mg tablet 1,000 mg (2 x 500 mg) PO Q8 #0 tabs 02/12/23 oxycodone 5 mg tablet 5 mg PO Q4H PRN PRN Pain Score 4-10 3 days #18 tabs 02/12/23 Hospital Course Operations None Procedures None Summary of Care Provided Minutes Spent on Discharge: 35 Hospital Course: 72 year old female with below past medical history hospitalized for left humerusfracture, left pelvis fracture, admitted to TCU with debility, here for rehabilitation, strengthening, prior to discharge home with . Discharge home with son 02/13/2023, [facility] PT/OT/[place], pediatric front wheeled walker. Physical Exam Const alert General Appearance: cooperative HEENT normocephalic Eyes PERRL and EOMs intact bilaterally Neck supple, no JVD and no carotid bruits Resp normal respiratory effort, normal air movement and clear to auscultation bilaterally Cardio regular rate and regular rhythm GI normal to inspection, nondistended, normoactive bowel sounds, non-tender and non-distended Extremity normal capillary refill General Extremity: Negative for edema Skin no rashes or lesions noted General Skin Exam: no breakdown Psych affect normal Appearance: appropriate Weight / BMI Weight Weight: 57.379 kg Body Mass Index (BMI) 22.4 ABG / Lab / Microbiology Data 02/11/23 05:13 02/11/23 05:13 Laboratory: Laboratory Results - last 24 hr 02/11/23 20:30: POC Glucose 283 H 02/12/23 06:24: POC Glucose 235 H 02/12/23 11:40: POC Glucose 250 H 02/12/23 15:50: POC Glucose 190 H Microbiology: Microbiology 01/24/23 14:48 Urine, Clean Catch Urine Culture - Final Mixed Gram Pos & Gram Neg Org 01/18/23 02:15 Urine, Catheterized Urine Culture - Final Culture exhibits no growth. D/C Instructions Discharge Diet: No restrictions Discharge Activity: Return to Normal Activity, May Shower and Use Walker Weight Bearing Status: Weight bearing as tolerated Call your doctor if you observe: Fever of 101 or Higher, Inability to urinate, Inability to have a bowel movement, Shortness of breath, Dizziness, Fainting spells, Swelling in the ankles, Chest pain and Uncontrolled pain Additional Instructions: Discharge home with son 02/13/2023, [facility] PT/OT/[place], pediatric front wheeled walker. Please Follow Up With: Wan Oh MD When: As scheduled. Meaningful Use Info Meaningful Use Diagnoses (Choose all that apply): None applicable Discharge Plan Admission Admit Date/Time: 01/13/23 16:00 Primary Reason for Your Visit: Debility. Attending Provider: Hu Almonte Chi Primary Care Provider: Eric Bravo Consulting Providers: Dustin Young Instructions Additional Instructions / Restrictions: Discharge home with son 02/13/2023, [facility] PT/OT/[place], pediatric front wheeled walker. Discharge Orders/Prescriptions Prescriptions: New acetaminophen 500 mg Tablet 1,000 mg PO Q8 Qty: 0 0RF oxycodone 5 mg Tablet 5 mg PO Q4H PRN PRN (Reason: Pain Score 4-10) 3 Days Qty: 18 0RF Continued folic acid 400 mcg Tablet 0.4 mg PO DAILY methotrexate sodium 2.5 mg tablet 12.5 mg PO QWEEK Patient Comments: TAKE 5 (FIVE) tablets BY MOUTH per week losartan 25 mg tablet 25 mg PO DAILY levothyroxine 150 MCG tablet 150 mcg PO DAILY magnesium oxide 400 mg magnesium tablet 400 mg PO DAILY prednisone 5 mg tablet 5 mg PO DAILY Patient Comments: TAKE 1 TABLET BY MOUTH EVERY MORNING sertraline 25 mg tablet 25 mg PO DAILY Patient Comments: Take 1 tablet by mouth daily Levemir FlexPen 100 unit/mL (3 mL) insulin pen 38 unit subcut QHS insulin aspart U-100 [Novolog FlexPen U-100 Insulin] 100 unit/mL (3 mL) insulin pen 5 unit subcut TID Qty: 15 0RF Patient Comments: SLIDING SCALE 3-12 UNITS before meals Rx Instructions: Hold if glucose less than 130 mg/dl Discontinued acetaminophen 500 mg Tablet 1,000 mg PO Q8 Qty: 0 0RF insulin lispro [Humalog KwikPen Insulin] 100 unit/mL Insulin Pen See Protocol subcut ACHS Qty: 0 0RF Protocol: 3. Sliding Scale Insulin Med Dosing Condition: 150-189 mg/dl = 1 unit Condition: 190-229 mg/dl = 2 units Condition: 230-269 mg/dl = 3 units Condition: 270-309 mg/dl = 4 units Condition: 310-349 mg/dl = 5 units Condition: 350-399 mg/dl = 6 units Condition: 400-449 mg/dl = 7 units Condition: Greater than 449 call physician Protocol Text: - Use for Total Daily Dose of Insulin 37-55 units - Obsese, infected, or steroid patients MEDIUM DOSING ALGORITHIM oxycodone 5 mg Tablet 5 mg PO Q4H PRN PRN (Reason: Pain Score 4-10) 3 Days Qty: 12 0RF sennosides-docusate sodium [Stool Softener-Stimulant Laxat] 8.6-50 mg Tablet 2 tab PO BID PRN PRN (Reason: Constipation) Qty: 0 0RF Referrals / Follow Up: Devin Rosas DPM [Med Staff - Active Staff] - Eric Bravo DO [Primary Care Provider] - 02/19/23 10:50 am Wan Oh MD [Med Staff - Active Staff] - 03/03/23 10:30 am Disposition Disposition (needs filled in before D/C Order can be placed): Home Health Service 02/12/231945 <Electronically signed by Hu Almonte MD> Cosigner Signature (if applicable): CC: Dr. Eric Bravo DO; Dr. Hu Almonte MD~ Signed [facility] Work Phone: 1(389) 314-381708-28-2023 Progress note Author Hu Gage [facility] February 10, 2023 7:39pm Note Date/Time February 10, 2023 7: 28pm [facility] Medical Records Department [address] [place] [address] Progress Note - [facility] 02/10/231921 MR#: [id number] Acct: [id number] Name: DURAN DEVI Rep #:[id number] : 1950 72 From: Hu Almonte MD PCP: Dr. Eric Bravo DO Status:ADM IN Location: [place] [address]-1 Subjective Subjective Resident seen, examined for regulatory visit. She has no new problems, concerns, issues, complaints. Resident is a brittle diabetic. She told me her mother was also brittle diabetic. Objective Data Objective Data Vital Signs: Vital Signs Temp Pulse Resp BP Pulse Ox O2 Del Method 97.2 F L 78 18 153/69 H 96 Room Air 02/10/23 13:06 02/10/23 13:06 02/10/23 13:06 02/10/23 13:06 02/10/23 13:06 02/10/23 13:06 Oxygen Delivery Method Room Air Weight: 57.805 kg Body Mass Index (BMI) 22.6 Intake & Output: Intake and Output for Last 24 Hours 02/08/23 02/09/23 02/10/23 23:59 23:59 23:59 Intake Total 940 / 940 1060 / 1060 600 / 600 Balance 940 / 940 1060 / 1060 600 / 600 Lab / Micro Data Attestation: I reviewed the patient's lab results. 02/04/23 05:11 02/04/23 05:11 Labs: Laboratory Results - last 24 hr 02/09/23 21:26: POC Glucose 206 H 02/10/23 06:23: POC Glucose 302 H 02/10/23 10:57: POC Glucose 250 H 02/10/23 16:22: POC Glucose 98 Micro: Microbiology 01/24/23 14:48 Urine, Clean Catch Urine Culture - Final Mixed Gram Pos & Gram Neg Org 01/18/23 02:15 Urine, Catheterized Urine Culture - Final Culture exhibits no growth. Physical Exam Const alert General Appearance: cooperative HEENT normocephalic Eyes PERRL and EOMs intact bilaterally Neck supple, no JVD and no carotid bruits Resp normal respiratory effort, normal air movement and clear to auscultation bilaterally Cardio regular rate and regular rhythm GI normal to inspection, nondistended, normoactive bowel sounds, non-tender and non-distended Extremity normal capillary refill Extremity Narrative: Left upper extremity sling. General Extremity: Negative for edema Skin no rashes or lesions noted General Skin Exam: no breakdown Psych affect normal Appearance: appropriate Assessment & Plan Assessment/Plan (1) Debility: (2) Closed fracture of left proximal humerus: QUALIFIERS: Encounter type: initial encounter Fracture morphology: unspecified fracture morphology Qualified Code(s): S42.202A - Unspecified fracture of upper end of left humerus, initial encounter for closed fracture (3) Fracture of left inferior pubic ramus: QUALIFIERS: Encounter type: initial encounter Fracture type: closed Qualified Code(s): S32.592A - Other specified fracture of left pubis, initial encounter for closed fracture (4) Diabetes mellitus: (5) Chronic anemia: (6) HTN (hypertension): (7) Hypothyroidism: (8) Rheumatoid arthritis: PLAN: Plan 72 year old female with below past medical history hospitalized for left humerusfracture, left pelvis fracture, admitted to TCU with debility, here for rehabilitation, strengthening, prior to discharge home with . * Debility - PT/OT. * Pain - Tylenol 1000mg q8, Tramadol 50mg q6h prn, Oxycodone 5mg q4h prn pain. * Bowel - senna/colace 2 tablets bid. * Adult immunization - Administer pneumonia vaccine, covid19 vaccine, flu vaccine as appropriate. * DVT prophylaxis - Lovenox 40mg sc daily. * Rheumatoid arthritis - MTX 12.5mg per week, Folic acid 1mg daily, Prednisone 5mg daily. * Diabetes Mellitus II - Glargine 20 units qhs, Lispro 10 units tid. * Hypothyroidism - Levothyroxine 150mcg daily. * Hypertension - Losartan 100mg daily. * Hypomagnesemia - Magnesium 128mg daily. * Skin irritation - Calmoseptine topical bid, Lac-hydrin topical bid. * Tinea Corporis - Nystatin topical bid prn. * Depression - Sertraline 25mg daily, stable chronic long term 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 use, GDR not recommended. * Insomnia - Doxepin 25mg qhs, stable use, GDR not recommended. Capacity Capacity Assessment Tool Can the patient make a choice & communicate that choice?: Yes Can the patient understand benefits, risks and alternatives?: Yes Can the patient make a logical, rational choice?: Yes Is the choice the patient makes consistent w/ their values?: Yes Is there an impending, emergent risk to the patient?: No Does the patient have an Advance Directive?: Yes Is there a Surrogate Available?: Yes i.e. HCPOA: Yes i.e. close relative (spouse, child, parent, sibling)?: Yes 02/10/231938 <Electronically signed by Hu Almonte MD> Cosigner Signature (if applicable): CC: ~ Signed [facility] Work Phone: 1(725) 970-726708-11-2023 Consult note Author Devin Rosas [facility] January 24, 2023 12:38pm Note Date/Time January 24, 2023 12 :38pm [facility] Medical Records Department [address] [place] [address] Consultation 01/24/23 1233 MR#: [id number] Acct: [id number] Name: DURAN DEVI Rep #:[id number] : 1950 72 From: Devin Rosas DPM PCP: Dr. Eric Bravo, DO Status:ADM IN Location: [place] [address] Assessment & Plan Assessment/Plan (1) Venous insufficiency (chronic) (peripheral): PLAN: Exam performed Left lower extremity swelling noted Patient receiving Lovenox, no pain. Concern for DVT low. Recommend compression via RENALDO hose. Recommend elevation on pillows. Edema should improve when patient starts ambulating more. Toenails x 10 to bilateral feet were debrided in length and thickness without acute incident using sterile nail nippers. Patient will follow-up outpatient (2) Tinea unguium: (3) Pain in right toe(s): (4) Pain in left toe(s): HPI Consult Data Date of Consult: 01/24/23 HPI Narrative HPI Narrative: DURAN DEVI, is a 72 F who presents painful elongated toenails to bilateral feet. Unable to trim due to left pelvic fracture. As well as proximal humerus fracture. Both being treated conservatively. Patient in TCU for this. Patient does note some left lower extremity which is new since the time of her injury. Denies any calf pain chest pain shortness of breath. No other complaints. [facility] Medical History Chronic anemia Diabetes mellitus, type 2 Former tobacco use HTN (hypertension) Hypothyroidism Rheumatoid arthritis Home Medications folic acid 400 mcg tablet 0.4 mg PO DAILY SUPPLEMENT 03/15/22 [History Last Taken 01/13/23] levothyroxine 150 mcg tablet 150 mcg PO DAILY THYROID 03/15/22 [History Last Taken 01/13/23] losartan 25 mg tablet 25 mg PO DAILY BLOOD PRESSURE 03/15/22 [History Last Taken 01/13/23] magnesium oxide 400 mg PO DAILY SUPPLEMENT 03/15/22 [History Last Taken 01/13/23] methotrexate sodium 2.5 mg tablet 12.5 mg PO QWEEK inflammation 03/15/22 [History Last Taken Unknown] prednisone 5 mg tablet 5 mg PO DAILY arthritis 01/10/23 [History Last Taken Unknown] sertraline 25 mg tablet 25 mg PO DAILY depression 01/10/23 [History Last Taken Unknown] insulin detemir U-100 100 unit/mL (3 mL) subcutaneous pen (Levemir FlexPen) 38 unit subcut QHS DMII 01/11/23 [History Last Taken Unknown] acetaminophen 500 mg tablet 1,000 mg (2 x 500 mg) PO Q8 PAIN #0 tabs 01/13/23 [Rx Last Taken 01/13/23] insulin aspart U-100 100 unit/mL (3 mL) subcutaneous pen (Novolog FlexPen U-100 Insulin aspart) 5 unit (0.05 mL) subcut TID glucose control #15 mL 01/13/23 [Rx Last Taken Unknown] insulin lispro 100 unit/mL subcutaneous pen (Humalog KwikPen (U-100) Insulin) See Protocol subcut ACHS DM #0 mL 01/13/23 [Rx Last Taken Unknown] oxycodone 5 mg tablet 5 mg PO Q4H PRN PRN Pain Score 4-10 3 days #12 tabs 01/13/23 [Rx Last Taken 01/12/23] sennosides 8.6 mg-docusate sodium 50 mg tablet (Stool Softener-Stimulant Laxative) 2 tab PO BID PRN PRN Constipation #0 tabs 01/13/23 [Rx Last Taken Unknown] Allergy/AdvReac Type Severity Reaction Status Date / Time egg [eggs] AdvReac Vomiting Verified 01/20/23 09:57 Family History Mother Diabetes Heart disease Father Diabetes Cancer Throat cancer Surgical History H/O: s/p right shoulder surgery Social History household members: spouse Smoking Status: Former smoker alcohol intake: never substance use type: does not use ROS Constitutional Constitutional: Reports lethargy; Denies daytime sleepiness or malaise Eyes Eyes: Denies blind spots, discharge from eye(s) or foreign body ENT HEENT: Denies change in voice, foreign body in nose or mucositis Cardiovascular Cardiovascular: Denies abdominal pain, arrhythmia on telemetry or clubbing Respiratory/Chest Respiratory/Chest: Denies change in phlegm color, chest congestion or dyspnea on exertion Gastrointestinal Gastrointestinal: Denies change in bowel habits, change in stool character, dyspepsia or hemorrhoids Genitourinary Genitourinary: Denies burning urination, change in libido or dysuria Physical Exam Narrative Dorsalis pedis and posterior tibial pulses palpable 2 out of 4 to bilateral feet. Capillary fill time brisk to all digits bilaterally. Digital hair growth noted. Some shiny taut appearance to skin. +1 pitting edema noted to left lower extremity. No pain with calf squeeze or palpation of popliteal fossa. Skin intact no evidence of breakdown. Thickened elongated toenails to digits 1-3 4 and 5 to bilateral feet. Some tenderness to palpation noted. Light touch protective sensation intact bilateral feet. Muscular strength for the bilateral lower extremity compartments. No gross deformity noted. Const alert and oriented x3 Lab / Micro Data 01/21/23 05:15 01/21/23 05:15 Labs: Laboratory Results - last 24 hr 01/23/23 16:15: POC Glucose 314 H 01/23/23 21:11: POC Glucose 276 H 01/24/23 06:13: POC Glucose 122 H 01/24/23 10:55: POC Glucose 297 H 01/24/23 1238 <Electronically signed by Devin Rosas DPM> Cosigner Signature (if applicable): CC: RADHA Young; Dr. Eric Bravo DO; Dr. Hu Almonte MD~ Signed [facility] Work Phone: [phone]) 217-995008-01-2023 Progress note Author Francisco Bourgeois [facility] January 14, 2023 2:05pm Note Date/Time January 14, 2023 8:0 9am [facility] Medical Records Department [address] [place] [id number] Progress Note - Pharmacy 01/14/23 08 MR#: [id number] Acct: [id number] Name: DURAN DEVI Rep #:[id number] : 1950 72 From: Francisco Bourgeois PCP: Dr. Eric Bravo, DO Status:ADM IN Location: [place] [address] Documented by User: Francisco Bourgeois 01/14/23 09:26 TCU RX Drug Regimen Review Subjective/Objective Subjective/Objective: Subjective: This is a 72 YO F presented to [facility] with fall and fracture to L humers and L inferior pubic ramus. Admitted to TCU on 01/13 for debility, here for rehabilitation and strengthening prior to discharge home with . Objective: Allergies egg [eggs] Adverse Reaction (Verified 01/13/23 16:08) Vomiting Current Medications Generic Name Dose Route Start Last Admin Trade Name Freq PRN Reason Stop Dose Admin Acetaminophen 1,000 mg 01/13/23 22:00 01/14/23 05:52 Acetaminophen 500 Mg Tablet PO 1,000 mg Q8 [facility] Administration Calamine/Phenol 1 applic 01/13/23 18:00 01/14/23 05:54 Menthol/Lanolin/Calamine/Znox 113 Gm Tube TOPICAL 1 applic BID [facility] Administration Protocol Ciprofloxacin HCl 2 drp 01/14/23 10:00 Ciprofloxacin 0.3% 2.5ml Bottle RIGHT EYE 01/19/23 10:01 Q4 [facility] Doxycycline Monohydrate 100 mg 01/14/23 07:30 Doxycycline 100 Mg Capsule PO 01/21/23 07:31 BID [facility] Enoxaparin Sodium 40 mg 01/14/23 06:00 01/14/23 05:53 Enoxaparin 40 Mg/0.4 Ml Syringe SC 40 mg DAILY@0600 [facility] Administration Folic Acid 1 mg 01/14/23 08:00 Folic Acid 1 Mg Tablet PO BREAKFAST [facility] Insulin Glargine 38 unit 01/13/23 22:00 01/13/23 21:14 Insulin Glargine-Yfgn 100 Unit/Ml Pen SC 38 unit QHS [facility] Administration Insulin Human Lispro 5 unit 01/14/23 07:45 Insulin Lispro 100 Unit/Ml Insuln.Pen SC TIDCM [facility] Levothyroxine Sodium 150 mcg 01/14/23 06:00 01/14/23 05:53 Levothyroxine 150 Mcg Tablet PO 150 mcg DAILY [facility] Administration Losartan Potassium 25 mg 01/14/23 06:00 01/14/23 05:53 Losartan Potassium 25 Mg Tablet PO 25 mg DAILY [facility] Administration Magnesium Chloride 128 mg 01/14/23 06:00 01/14/23 05:53 Magnesium Chloride 64 Mg Delay Rel.Tablet PO 128 mg DAILY [facility] Administration Melatonin 10 mg 01/14/23 22:00 Melatonin 10 Mg Tablet PO QHS [facility] 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 12.5 mg 01/20/23 06:00 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 2.5 Mg Tablet PO Mo [facility] Nystatin 1 applic 01/13/23 18:00 01/14/23 05:58 Nystatin Powder 15gm Bottle TOPICAL 1 applic BID [facility] Administration Protocol Oxycodone HCl 5 mg 01/13/23 16:40 01/14/23 05:49 Oxycodone 5 Mg Tablet PO 5 mg Q4H PRN PRN Administration Pain Score 4-10 Prednisone 5 mg 01/14/23 08:00 Prednisone 5 Mg Tablet PO DAILYCM [facility] Senna/Docusate Sodium 2 tablet 01/13/23 16:40 Senna/Docusate Sodium 1 Tablet PO BID PRN PRN Constipation Sertraline HCl 25 mg 01/14/23 06:00 01/14/23 05:50 Sertraline 50 Mg Tablet PO 25 mg DAILY [facility] Administration Sodium Chloride 10 - 40 ml 01/13/23 17:05 0.9% Saline Lock 10 Ml Syringe IV UD PRN SALINE FLUSH Tramadol HCl 50 mg 01/14/23 07:30 Tramadol 50 Mg Tablet PO Q6H PRN PRN Pain Score 1-3 Tuberculin PPD 0.1 ml 01/21/23 10:00 Tuberculin,Purif.Prot.Deriv. 50 Tu/Ml Vial ID 01/21/23 10:01 X1 ONE Tuberculin PPD 0.1 ml 01/14/23 10:00 Tuberculin,Purif.Prot.Deriv. 50 Tu/Ml Vial ID 01/14/23 10:01 X1 ONE Problem List (Updated 01/13/23 @ 19:[address] Hu Almonte MD) Rheumatoid arthritis (Acute) Hypothyroidism (Acute) HTN (hypertension) (Chronic) Chronic anemia (Chronic) Diabetes mellitus (Acute) Debility (Acute) Closed fracture of left proximal humerus (Acute) Fracture of left inferior pubic ramus (Acute) Vital Signs Temp Pulse Resp BP Pulse Ox O2 Del Method 97.1 F L 70 18 167/87 H 94 Room Air 01/14/23 05:00 01/14/23 05:00 01/14/23 05:00 01/14/23 05:00 01/14/23 05:00 01/14/23 05:00 Oxygen Delivery Method Room Air Weight: 56.835 kg Body Mass Index (BMI) 22.1 Sodium 134 mmol/L (136-145) L 01/14/23 05:11 Potassium 3.9 mmol/L (3.5-5.1) 01/14/23 05:11 Chloride 100 mmol/L (98-107) 01/14/23 05:11 Carbon Dioxide 29.0 mmol/L (21.0-32.0) 01/14/23 05:11 Anion Gap 5 (5-15) 01/14/23 05:11 BUN 6 mg/dL (7-18) L 01/14/23 05:11 Creatinine 0.42 mg/dL (0.55-1.02) L 01/14/23 05:11 Est GFR (MDRD) Af Amer 194 mL/min (>60) 01/14/23 05:11 Est GFR (MDRD) Non-Af 161 mL/min (>60) 01/14/23 05:11 BUN/Creatinine Ratio 14.5 RATIO (10-20) 01/14/23 05:11 Glucose 116 mg/dL (74-106) H 01/14/23 05:11 Assessment/Plan: 1. Pain: Acetaminophen 1000 mg PO Q8H scheduled, oxycodone 5 mg PO Q4H PRN pain 6-10, tramadol 50 mg PO Q6H PRN pain 1-3. Patient has received x 1 PRN dose of oxycodone for a pain score of 7/10. Please continue to monitor for sedation, respiratory depression, pain, and renal dysfunction. 2. Bowel: Senna/docusate 2 tablets PO BID PRN constipation (no documented doses administered this admission). Please continue to monitor for BM (no BM documented yet this admission), and diarrhea. 3. Concern for bilateral infiltrates on chest xray: Doxycycline 100 mg BID x 7 days. Please continue to monitor for s/s of systemic infection including fever (last temp 97.1), WBC (last 9.5) as well as O2 sat (last 94%), photosensitivity and GI upset. 4. Possible pink eye: Ciprofloxacin 0.3% opthalmic drop 2 drops Right EYE Q4H. Please continue to monitor for resolution of s/s of pink eye. 5. Rheumatoid arthritis: 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 12.5 mg PO every week on Friday, folic acid 1 mg PO daily, prednisone 5 mg PO daily. Please continue to monitor blood sugar, delirium (Beers Criteria), GI distress, appetite, anemia (last Hgb 11.5), neutropenia (last WBC 9.5), thrombocytopenia (last platelet count 297), opportunistic infections, hepatotoxicity (last ALT/AST 03/03) , and eye function. 6. Diabetes Mellitus Type II: Insulin glargine 38 units SQ QHS, insulin lispro 5 units TIDWM, Insulin lispro sliding scale TIDCM. Please continue to monitor blood glucose (last POC BG 251), and A1C (last A1C 9.3 on 09/27/22). Please conisder repeating A1C as it has been >3 months since most recent A1C. 7. Hypothyroidism: levothyroxine 150 mcg PO QD. Please continue to monitor TSH (last 19.3 on 12/05/22), T4 (last 1.24 on 11/14/22), for s/s of hypothyroidism, and for s/s of hyperthyroidism. 8. Hypertension: losartan 25 mg PO QD. Please continue to monitor BP (last 167/87), potassium (last 3.9 mmol/L), sodium (last 134 mmol/L), Scr (last 0.42), and CrCl (last 43.3). 9. Bowel: Senna/docusate 2 tablets PO BID PRN constipation. Please continue to monitor for BM (no BM documented yet this admission), and diarrhea. 10. DVT prophylaxis: Enoxaparin 40 mg SQ QD. Please continue to monitor Hgb (last 11.5), platelet count (last 297), CrCl (last 43.30), and for s/s of DVT/PE and for s/s of bleeding (Beers criteria). 11. Skin irritation/Tinea Corporus: Nystatin topical powder 1 application BID, calmoseptine 1 application topically BID. Please continue to monitor for s/s of resolution of tinea corporus and for skin irritation. 12. Hypomagnesemia: Magnesium chloride 128 mg PO QD. Please continue to monitor for hypomagnesemia (last magnesium level 2.0 on 12/05/22). 13. Eye dryness: Artificial tears 2 drops in each eye Q1H PRN. 14. Insomnia: melatonin 10 mg PO Qhs: Please continue to monitor for insomnia and headache. Assessment/Plan for indications treated with psychotropic medications: 1. Depression: sertraline 25 mg PO QD. Please see provider note regarding GDR. Please continue to monitor for confusion/falls, and SI as well as sodium levels (last 131). Medical chart and medication regimen reviewed. The following medication irregularities or issues were identified: 1. Bowel: Please consider changing senna/docusate to 2 tabs PO BID scheduled until patient has a bowel movement as has received oxycodone and has not had a documented BM this admission yet. 2. Diabetes Mellitus Type II: Insulin glargine 38 units SQ QHS, insulin lispro 5 units TIDWM, Insulin lispro sliding scale TIDCM. Please continue to monitor blood glucose (last POC BG 251), and A1C (last A1C 9.3 on 09/27/22). Please consider repeating A1C as it has been >3 months since most recent A1C. Date Date of Note:: 01/14/23 Documented by User: Dr. Hu Almonte MD 01/14/23 09:25 TCU RX Drug Regimen Review Provider Comments Provider responsibility Provider Comments to Recommendations by Pharmacy: Agree 01/14/23 1405 <Electronically signed by Francisco Bourgeois> Francisco Monroy Signature (if applicable): 01/14/23 9911 <Electronically signed by Hu Almonte MD> CC: ~ Signed [facility] Work Phone: [phone]) 883-506607-31-2023 History and physical note Author Hu Almonte [facility] January 13, 2023 7:33pm Note Date/Time January 13, 2023 7:26 pm [facility] Medical Records Department [address] [place] [address] History & Physical Exam 01/13/231913 MR#: [id number] Acct: [id number] Name: DURAN DEVI Rep #:[id number] : 1950 72 From: Hu Almonte MD PCP: Dr. Eric Bravo, DO Status:ADM IN Location: [facility] HPI - General General Date of Admission: 01/13/23 Date of Service: 01/13/23 Chief Complaint: Here for rehabilitation. HPI Narrative 01/10/2023 DURAN DEVI, is a 72 Female who presents to [facility] with fall. Got up middle of night to go to bathroom, on her way back using walker, lost balance, fell, collapsed the walker. Fell on left side injury, left knee, left hip, left shoulder pain. Unable to stand, EMS called, has chronic left knee arthritis. X-ray shows closed fracture left proximal humerus. X-ray fracture left inferior pubic ramus. Unable to walk. 01/10/2023 Admit to Hospital. Pain control, PT/OT, consult Orthopedics for left humerus fracture, left pelvis fracture. Left upper extremity sling, left humerus fracture. Dr. Oh recommended WBAT wit walker for left pelvis fracture. Opting non-operative management currently for left humerus fracture. 01/10/2023 Pain controlled, when not moving. Tylenol, Morphine, Oxycodone for pain control. PT/OT for debility. 01/11/2023 Pain controlled. Blood sugars high. 01/12/2023 No complaints, blood pressure low, improved with orange juice. Lantus 30 units twice daily started for Diabetes Mellitus II. 01/13/2023 Admit to TCU with debility, here for rehabilitation, strengthening, prior to discharge home with . [facility] Medical History (Updated 01/13/23 @ 19:[address] Hu Almonte MD) Chronic anemia Diabetes mellitus, type 2 Former tobacco use HTN (hypertension) Hypothyroidism Rheumatoid arthritis Home Medications folic acid 400 mcg tablet 0.4 mg PO DAILY SUPPLEMENT 03/15/22 [History Last Taken 01/13/23] levothyroxine 150 mcg tablet 150 mcg PO DAILY THYROID 03/15/22 [History Last Taken 01/13/23] losartan 25 mg tablet 25 mg PO DAILY BLOOD PRESSURE 03/15/22 [History Last Taken 01/13/23] magnesium oxide 400 mg PO DAILY SUPPLEMENT 03/15/22 [History Last Taken 01/13/23] methotrexate sodium 2.5 mg tablet 12.5 mg PO QWEEK inflammation 03/15/22 [History Last Taken Unknown] prednisone 5 mg tablet 5 mg PO DAILY arthritis 01/10/23 [History Last Taken Unknown] sertraline 25 mg tablet 25 mg PO DAILY depression 01/10/23 [History Last Taken Unknown] insulin detemir U-100 100 unit/mL (3 mL) subcutaneous pen (Levemir FlexPen) 38 unit subcut QHS DMII 01/11/23 [History Last Taken Unknown] acetaminophen 500 mg tablet 1,000 mg (2 x 500 mg) PO Q8 PAIN #0 tabs 01/13/23 [Rx Last Taken 01/13/23] insulin aspart U-100 100 unit/mL (3 mL) subcutaneous pen (Novolog FlexPen U-100 Insulin aspart) 5 unit (0.05 mL) subcut TID glucose control #15 mL 01/13/23 [Rx Last Taken Unknown] insulin lispro 100 unit/mL subcutaneous pen (Humalog KwikPen (U-100) Insulin) See Protocol subcut ACHS DM #0 mL 01/13/23 [Rx Last Taken Unknown] oxycodone 5 mg tablet 5 mg PO Q4H PRN PRN Pain Score 4-10 3 days #12 tabs 01/13/23 [Rx Last Taken 01/12/23] sennosides 8.6 mg-docusate sodium 50 mg tablet (Stool Softener-Stimulant Laxative) 2 tab PO BID PRN PRN Constipation #0 tabs 01/13/23 [Rx Last Taken Unknown] Allergy/AdvReac Type Severity Reaction Status Date / Time egg [eggs] AdvReac Vomiting Verified 01/13/23 16:08 Family History Mother Diabetes Heart disease Father Diabetes Cancer Throat cancer Surgical History H/O: s/p right shoulder surgery Social History household members: spouse Smoking Status: Former smoker alcohol intake: never substance use type: does not use ROS Constitutional Constitutional: Denies chills, fever(s) or weight gain ENT HEENT: Denies headache(s), nasal congestion or nasal discharge Cardiovascular Cardiovascular: Denies chest pain or palpitations Respiratory/Chest Respiratory/Chest: Denies cough, excessive phlegm production or shortness of breath with exertion Gastrointestinal Gastrointestinal: Denies abdominal pain, nausea or vomiting Genitourinary Genitourinary: Denies dysuria Musculoskeletal Musculoskeletal: Denies joint pain or joint swelling Integumentary Integumentary: Denies rash or wounds Neurologic Neurologic: Denies focal weakness, numbness or tingling Psychiatric Psychiatric: Denies anxiety, auditory hallucinations, depression, homicidal ideation or suicidal ideation Vital Signs Vital Signs Vital Signs: 01/13/23 16:07 01/13/23 16:30 Temperature 97.2 F L Temperature Source Temporal Pulse Rate 81 81 Pulse Rhythm Irregular Pulse Strength Normal (2+) Respiratory Rate 16 16 Respiratory Effort Normal Respiratory Depth Normal Respiratory Pattern Normal Blood Pressure 154/81 H Blood Pressure Mean 105 Blood Pressure Source Monitor Blood Pressure Position Semi-Fowlers Blood Pressure Location Right Arm Pulse Ox 94 94 Oxygen Delivery Method Room Air Room Air Weight Weight: 56.835 kg Body Mass Index (BMI) 22.1 Physical Exam Const alert General Appearance: cooperative HEENT normocephalic Eyes PERRL and EOMs intact bilaterally Neck supple, no JVD and no carotid bruits Resp normal respiratory effort, normal air movement and clear to auscultation bilaterally Cardio regular rate and regular rhythm GI normal to inspection, nondistended, normoactive bowel sounds, non-tender and non-distended Extremity normal capillary refill Extremity Narrative: Left upper extremity sling. General Extremity: Negative for edema Skin no rashes or lesions noted General Skin Exam: no breakdown Psych affect normal Appearance: appropriate Results Lab / Micro Data Labs: Laboratory Results - last 24 hr 01/13/23 16:35: POC Glucose 173 H Radiology Impression Chest X-Ray 01/13/23 17:30 IMPRESSION: Bilateral pneumonia. This is improved. Electronically Signed: Myles Combs MD at 18:18 EDT Reading Location ID and State: [facility] / [place] , Service support , Assessment & Plan Assessment/Plan (1) Debility: (2) Closed fracture of left proximal humerus: QUALIFIERS: Encounter type: initial encounter Fracture morphology: unspecified fracture morphology Qualified Code(s): S42.202A - Unspecified fracture of upper end of left humerus, initial encounter for closed fracture (3) Fracture of left inferior pubic ramus: QUALIFIERS: Encounter type: initial encounter Fracture type: closed Qualified Code(s): S32.592A - Other specified fracture of left pubis, initial encounter for closed fracture (4) Diabetes mellitus: (5) Chronic anemia: (6) HTN (hypertension): (7) Hypothyroidism: (8) Rheumatoid arthritis: PLAN: Plan 72 year old female with below past medical history hospitalized for left humerus fracture, left pelvis fracture, admitted to TCU with debility, here for rehabilitation, strengthening, prior to discharge home with . * Debility - PT/OT. * Pain - Tylenol 1000mg q8, Oxycodone 5mg q4h prn pain (4-10). * Bowel - senna/colace 2 tablets bid prn. * Adult immunization - Administer pneumonia vaccine, covid19 vaccine, flu vaccine as appropriate. * DVT prophylaxis - Lovenox 40mg sc daily. * Rheumatoid arthritis - MTX 12.5mg per week, Folic acid 1mg daily, Prednisone 5mg daily. * Diabetes Mellitus II - Glargine 38 units qhs, Humalog 5 units tid. * Hypothyroidism - Levothyroxine 150mcg daily. * Hypertension - Losartan 25mg daily. * Hypomagnesemia - Magnesium 128mg daily. * Skin irritation - Calmoseptine topical bid. * Tinea Corporis - Nystatin topical bid. * Artificial Tears 2gtt q1h prn. * Depression - Sertraline 25mg daily, stable chronic long term 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 use, GDR not recommended. 01/13/231932 <Electronically signed by Hu Almonte MD> Cosigner Signature (if applicable): CC: Dr. Eric Bravo DO; Dr. Hu Almonte MD~ Signed [facility] Work Phone: [phone]) [phone] Consult note Author Roxy Diamond [facility] January 13, 2023 11:01am Note Date/Time January 13, 2023 11:0 1am [facility] Medical Records Department [address] [place] [address] Counseling Note - Pharmacy 01/13/23 1101 MR#: [id number] Acct: [id number] Name: DURAN DEVI Rep #:[id number] : 1950 72 From: Roxy Diamond PCP: Dr. Eric Bravo DO Status:ADM IN Y Location: [place] [address] Pharmacy [place] Med Reconciliation Pharmacy Service has performed discharge medication reconciliation for this patient. The patient's discharge medication list was reviewed for discrepancies and discrepancies were resolved. Medications at Discharge Home Medications folic acid 400 mcg tablet 0.4 mg PO DAILY SUPPLEMENT 03/15/22 levothyroxine 150 mcg tablet 150 mcg PO DAILY THYROID 03/15/22 losartan 25 mg tablet 25 mg PO DAILY BLOOD PRESSURE 03/15/22 magnesium oxide 400 mg PO DAILY SUPPLEMENT 03/15/22 methotrexate sodium 2.5 mg tablet 12.5 mg PO QWEEK inflammation 03/15/22 prednisone 5 mg tablet 5 mg PO DAILY arthritis 01/10/23 sertraline 25 mg tablet 25 mg PO DAILY depression 01/10/23 insulin detemir U-100 100 unit/mL (3 mL) subcutaneous pen (Levemir FlexPen) 38 unit subcut QHS DMII 01/11/23 acetaminophen 500 mg tablet 1,000 mg (2 x 500 mg) PO Q8 #0 tabs 01/13/23 insulin aspart U-100 100 unit/mL (3 mL) subcutaneous pen (Novolog FlexPen U-100 Insulin aspart) 5 unit (0.05 mL) subcut TID glucose control #15 mL 01/13/23 insulin lispro 100 unit/mL subcutaneous pen (Humalog KwikPen (U-100) Insulin) See Protocol subcut ACHS #0 mL 01/13/23 oxycodone 5 mg tablet 5 mg PO Q4H PRN PRN Pain Score 4-10 3 days #12 tabs 01/13/23 sennosides 8.6 mg-docusate sodium 50 mg tablet (Stool Softener-Stimulant Laxative) 2 tab PO BID PRN PRN Constipation #0 tabs 01/13/23 01/13/23 1101 <Electronically signed by Roxy Diamond> Date _ Roxy Diamond Cosigner Signature (if applicable): Date CC: ~ Signed [facility] Work Phone: 1(197) 390-349207-31-2023 Discharge summary Author Eduardo Hicks [facility] January 13, 2023 10:47am Note Date/Time January 13, 2023 10:[address] [facility] Medical Records Department [address] [place] [address] Discharge Summary 01/13/23 1046 MR#: [id number] Acct: [id number] Name: DURAN DEVI Rep #:[id number] : 1950 72 From: Eduardo Hicks DO PCP: Dr. Eric Bravo DO Status:ADM IN Location: [place] [address] Providers Date of Admission: 01/10/23 Primary Care Physician: Dr. Eric Bravo DO Consultations 01/10/23 06:36 Consult: Orthopedics Routine Consulting Provider: Wan Oh Reason for Consult: Fall, L humeral fx, ? Hip fx EMERGENT Consult: No MD Notified: Yes Date Notified: 01/10/23 Time Notified: 06:16 Method of Notification: ED Physician Initiated Reason For Visit: FALL, HUMERAL FX, POSSIBLE HIP FX Diagnosis Discharge Diagnosis (1) Closed fracture of left proximal humerus: Status: Acute Code(s): S42.202A - Unspecified fracture of upper end of left humerus, initial encounter for closed fracture Qualifiers: Encounter type: initial encounter Fracture morphology: unspecified fracture morphology Qualified Code(s): S42.202A - Unspecified fracture of upperend of left humerus, initial encounter for closed fracture Plan: left proximal closed humeral fracture * due to mechanical fall * LUE in sling. NWB LUE. * PT/OT On board * orthopedics consulted; recommend conservative management for now, though RTSA and ORIF optionas are also available. To follow up with orthopedic surgery on outpatient basis. * oral and IV pain meds- tylenol and IV morphine prn as well as oxycodone prn * fall precautions (2) Fracture of left inferior pubic ramus: Status: Acute Code(s): S32.592A - Other specified fracture of left pubis, initial encounter for closed fracture Qualifiers: Encounter type: initial encounter Fracture type: closed Qualified Code(s): S32.592A - Other specified fracture of left pubis, initial encounter for closed fracture Plan: left pubic rami fracture * due to mechanical fall * PT/OT on board. * orthopedic surgery on board. Management is conservative * fall precautions (3) Hypokalemia: Status: Acute Code(s): E87.6 - Hypokalemia Plan: resolved after replacement. Plan Chronic conditions: * Rheumatoid arthritis: on methotrexate and folic acid supplementation * Hypothyroidism;on synthroid * Hypertension:fair control. not on any oral meds. IV hydralazine prn * Type 2 diabetes mellitus: on lantus. Per her pharmacy, her home dose was 38 units bid, so this was started yesterday. Patient had hypoglycemia with with her blood sugar being 67. We will cut down the insulin to 38 units qhs. on ISS. Accuchecks ACHS. * #Hyperlipidemia: DVT prophylaxis; lovenox Disposition: to TCU Medications at Discharge Home Medications folic acid 400 mcg tablet 0.4 mg PO DAILY SUPPLEMENT 03/15/22 levothyroxine 150 mcg tablet 150 mcg PO DAILY THYROID 03/15/22 losartan 25 mg tablet 25 mg PO DAILY BLOOD PRESSURE 03/15/22 magnesium oxide 400 mg PO DAILY SUPPLEMENT 03/15/22 methotrexate sodium 2.5 mg tablet 12.5 mg PO QWEEK inflammation 03/15/22 prednisone 5 mg tablet 5 mg PO DAILY arthritis 01/10/23 sertraline 25 mg tablet 25 mg PO DAILY depression 01/10/23 insulin detemir U-100 100 unit/mL (3 mL) subcutaneous pen (Levemir FlexPen) 38 unit subcut QHS DMII 01/11/23 acetaminophen 500 mg tablet 1,000 mg (2 x 500 mg) PO Q8 #0 tabs 01/13/23 insulin aspart U-100 100 unit/mL (3 mL) subcutaneous pen (Novolog FlexPen U-100 Insulin aspart) 5 unit (0.05 mL) subcut TID glucose control #15 mL 01/13/23 insulin lispro 100 unit/mL subcutaneous pen (Humalog KwikPen (U-100) Insulin) See Protocol subcut ACHS #0 mL 01/13/23 oxycodone 5 mg tablet 5 mg PO Q4H PRN PRN Pain Score 4-10 3 days #12 tabs 01/13/23 sennosides 8.6 mg-docusate sodium 50 mg tablet (Stool Softener-Stimulant Laxative) 2 tab PO BID PRN PRN Constipation #0 tabs 01/13/23 Hospital Course Operations None Procedures None Summary of Care Provided Minutes Spent on Discharge: 32 Weight / BMI Weight Weight: 55.537 kg Body Mass Index (BMI) 20.9 ABG / Lab / Microbiology Data 01/13/23 05:36 01/13/23 05:36 Laboratory: Laboratory Results - last 24 hr 01/12/23 11:27: POC Glucose 262 H 01/12/23 16:06: POC Glucose 250 H 01/12/23 22:23: POC Glucose 251 H 01/13/23 05:36: WBC 10.1, RBC 3.87 L, Hgb 11.0 L, Hct 33.0 L, MCV 85.3, MCH 28.4, MCHC 33.3, RDW Std Deviation 48.6 H, RDW Coeff of Mateus 15.6 H, Plt Count 297, MPV 10.7, Immature Gran % (Auto) 0.400, Neut % (Auto) 69.9, Lymph % (Auto) 19.6, Hood % (Auto) 6.2, Eos % (Auto) 2.9, Baso % (Auto) 1.0, Absolute Neuts (auto) 7.1, Absolute Lymphs (auto) 1.97, Nucleated RBC % 0, Sodium 132 L, Potassium 4.0, Chloride 102, Carbon Dioxide 25.0, Anion Gap 5, BUN 8, Creatinine0.40 L, Estim Creat Clear Calc 45.20, Est GFR (MDRD) Af Amer 204, Est GFR (MDRD)Non-Af 169, BUN/Creatinine Ratio 20.2 H, Glucose 150 H, Calcium 8.9 01/13/23 06:29: POC Glucose 164 H Microbiology: Microbiology 01/10/23 16:30 Urine, Clean Catch Urine Culture - Final Mixed Gram Positive Organisms Meaningful Use Info Meaningful Use Diagnoses (Choose all that apply): None applicable Discharge Plan Admission Admit Date/Time: 01/10/23 05:53 Primary Reason for Your Visit: left humerus fractuer. pelvic fracture. Attending Provider: Eduardo Hicks Primary Care Provider: Eric Bravo Consulting Providers: Wan Oh; Leyda Garcia; Lana Parks Discharge Orders/Prescriptions Prescriptions: New acetaminophen 500 mg Tablet 1,000 mg PO Q8 Qty: 0 0RF insulin lispro [Humalog KwikPen Insulin] 100 unit/mL Insulin Pen See Protocol subcut ACHS Qty: 0 0RF Protocol: 3. Sliding Scale Insulin Med Dosing Condition: 150-189 mg/dl = 1 unit Condition: 190-229 mg/dl = 2 units Condition: 230-269 mg/dl = 3 units Condition: 270-309 mg/dl = 4 units Condition: 310-349 mg/dl = 5 units Condition: 350-399 mg/dl = 6 units Condition: 400-449 mg/dl = 7 units Condition: Greater than 449 call physician Protocol Text: - Use for Total Daily Dose of Insulin 37-55 units - Obsese, infected, or steroid patients MEDIUM DOSING ALGORITHIM oxycodone 5 mg Tablet 5 mg PO Q4H PRN PRN (Reason: Pain Score 4-10) 3 Days Qty: 12 0RF sennosides-docusate sodium [Stool Softener-Stimulant Laxat] 8.6-50 mg Tablet 2 tab PO BID PRN PRN (Reason: Constipation) Qty: 0 0RF Continued folic acid 400 mcg Tablet 0.4 mg PO DAILY methotrexate sodium 2.5 mg tablet 12.5 mg PO QWEEK Patient Comments: TAKE 5 (FIVE) tablets BY MOUTH per week losartan 25 mg tablet 25 mg PO DAILY levothyroxine 150 MCG tablet 150 mcg PO DAILY magnesium oxide 400 mg magnesium tablet 400 mg PO DAILY prednisone 5 mg tablet 5 mg PO DAILY Patient Comments: TAKE 1 TABLET BY MOUTH EVERY MORNING sertraline 25 mg tablet 25 mg PO DAILY Patient Comments: Take 1 tablet by mouth daily Levemir FlexPen 100 unit/mL (3 mL) insulin pen 38 unit subcut QHS Changed insulin aspart U-100 [Novolog FlexPen U-100 Insulin] 100 unit/mL (3 mL) insulin pen 5 unit subcut TID Qty: 15 0RF Patient Comments: SLIDING SCALE 3-12 UNITS before meals Rx Instructions: Hold if glucose less than 130 mg/dl Discontinued insulin detemir U-100 100 unit/mL (3 mL) insulin pen 15 unit subcut BID Rx Instructions: Hold if glucose less than 130 mg/dl Referrals / Follow Up: Eric Bravo DO [Primary Care Provider] - Within 2 Weeks Wan Oh MD [Med Staff - Active Staff] - Within 2 Weeks Disposition Disposition (needs filled in before D/C Order can be placed): [facility] Facility Charges/Coding Visit Charges Inpatient E&M: 89057 Disch Hosp >30min 01/13/23 1047 <Electronically signed by Eduardo Hicks DO> Cosigner Signature (if applicable): CC: Dr. Eduardo Hicks DO; Dr. Eric Bravo DO~ Signed [facility] Work Phone: 1(716) 456-926007-31-2023 Discharge summary Author Eduardo Hicks [facility] January 13, 2023 10:46am Note Date/Time January 13, 2023 10:[address] [facility] Medical Records Department [address] [place] [id number] Transfer to [facility] MR#: [id number] Acct: [id number] Name: DURAN DEVI Rep #:[id number] : 1950 72 From: Eduardo Hicks DO PCP: Dr. Eric Bravo DO Status:ADM IN Certification of patient admission REQUIRED AT TIME OF ADMISSION. I CERTIFY THAT POST-HOSPITAL ECF SERVICES ARE REQUIRED TO BE GIVEN ON AN IN-PATIENT BASIS BECAUSE OF THE ABOVE NAMED PATIENT'S NEED FOR PRISON CARE ON A CONTINUING BASIS FOR THE CONDITION(S) FOR WHICH HE/SHE WAS RECEIVING IN-PATIENT HOSPITAL SERVICES PRIOR TO HIS/HER TRANSFER TO THE [facility]. 01/13/23 1046<Electronically signed by Eduardo Hicks DO> Diet Diet Order/Speech Therapy: 01/10/23 06:36 Diet: Consistent Carb - Calorie Controlled Food consistency:: Regular Liquid Consistency:: Regular/Thin How many daily calories?: 1800 calorie Routine Orders/Code Status Code Status: Full Code Therapies Weight Bearing: Non weight bearing Extremity Affected:: Left Upper (sling to left arm at all times. ) Physical Therapy: Eval and Treat Occupational Therapy: Eval and Treat Problem/Diagnosis (1) Closed fracture of left proximal humerus: Status: Acute Code(s): S42.202A - Unspecified fracture of upper end of left humerus, initial encounter for closed fracture Plan: left proximal closed humeral fracture * due to mechanical fall * LUE in sling * PT/OT On board * orthopedics consulted; recommend conservative management for now, though RTSA and ORIF optionas are also available. To follow up with orthopedic surgery on outpatient basis. * oral and IV pain meds- tylenol and IV morphine prn as well as oxycodone prn * fall precautions (2) Fracture of left inferior pubic ramus: Status: Acute Code(s): S32.592A - Other specified fracture of left pubis, initial encounter for closed fracture Plan: left pubic rami fracture * due to mechanical fall * PT/OT on board. * orthopedic surgery on board. Management is conservative * fall precautions (3) Hypokalemia: Status: Acute Code(s): E87.6 - Hypokalemia Plan: resolved after replacement. Plan Chronic conditions: * Rheumatoid arthritis: on methotrexate and folic acid supplementation * Hypothyroidism;on synthroid * Hypertension:fair control. not on any oral meds. IV hydralazine prn * Type 2 diabetes mellitus: on lantus. Per her pharmacy, her home dose was 38 units bid, so this was started yesterday. Patient had hypoglycemia with with her blood sugar being 67. We will cut down the insulin to 38 units qhs. on ISS. Accuchecks ACHS. * #Hyperlipidemia: DVT prophylaxis; lovenox Disposition: to TCU Allergies/Procedures Done in Hospital Allergies egg [eggs] Adverse Reaction (Verified 01/10/23 04:14) Vomiting Procedures: None Type of Care/Length of Stay Estimated LOS: Convalescent Care Less Than 30 days Type of Care Needed: Skilled Rehab Potential: Good Prognosis: Good Additional Orders/Day of Discharge Day of Discharge: 01/13/23 Discharge Plan Admission Admit Date/Time: 01/10/23 05:53 Primary Reason for Your Visit: left humerus fractuer. pelvic fracture. Attending Provider: Eduardo Hicks Primary Care Provider: Eric Bravo Consulting Providers: Wan Oh; Leyda Garcia; Lana Parks Discharge Orders/Prescriptions Prescriptions: New acetaminophen 500 mg Tablet 1,000 mg PO Q8 Qty: 0 0RF insulin lispro [Humalog KwikPen Insulin] 100 unit/mL Insulin Pen See Protocol subcut ACHS Qty: 0 0RF Protocol: 3. Sliding Scale Insulin Med Dosing Condition: 150-189 mg/dl = 1 unit Condition: 190-229 mg/dl = 2 units Condition: 230-269 mg/dl = 3 units Condition: 270-309 mg/dl = 4 units Condition: 310-349 mg/dl = 5 units Condition: 350-399 mg/dl = 6 units Condition: 400-449 mg/dl = 7 units Condition: Greater than 449 call physician Protocol Text: - Use for Total Daily Dose of Insulin 37-55 units - Obsese, infected, or steroid patients MEDIUM DOSING ALGORITHIM oxycodone 5 mg Tablet 5 mg PO Q4H PRN PRN (Reason: Pain Score 4-10) 3 Days Qty: 12 0RF sennosides-docusate sodium [Stool Softener-Stimulant Laxat] 8.6-50 mg Tablet 2 tab PO BID PRN PRN (Reason: Constipation) Qty: 0 0RF Continued folic acid 400 mcg Tablet 0.4 mg PO DAILY methotrexate sodium 2.5 mg tablet 12.5 mg PO QWEEK Patient Comments: TAKE 5 (FIVE) tablets BY MOUTH per week losartan 25 mg tablet 25 mg PO DAILY levothyroxine 150 MCG tablet 150 mcg PO DAILY magnesium oxide 400 mg magnesium tablet 400 mg PO DAILY prednisone 5 mg tablet 5 mg PO DAILY Patient Comments: TAKE 1 TABLET BY MOUTH EVERY MORNING sertraline 25 mg tablet 25 mg PO DAILY Patient Comments: Take 1 tablet by mouth daily Levemir FlexPen 100 unit/mL (3 mL) insulin pen 38 unit subcut QHS Changed insulin aspart U-100 [Novolog FlexPen U-100 Insulin] 100 unit/mL (3 mL) insulin pen 5 unit subcut TID Qty: 15 0RF Patient Comments: SLIDING SCALE 3-12 UNITS before meals Rx Instructions: Hold if glucose less than 130 mg/dl Discontinued insulin detemir U-100 100 unit/mL (3 mL) insulin pen 15 unit subcut BID Rx Instructions: Hold if glucose less than 130 mg/dl Referrals / Follow Up: Eric Bravo DO [Primary Care Provider] - Within 2 Weeks Wan Oh MD [Med Staff - Active Staff] - Within 2 Weeks Disposition Disposition (needs filled in before D/C Order can be placed): [facility] Facility (1) Closed fracture of left proximal humerus Qualifiers: Encounter type: initial encounter Fracture morphology: unspecified fracture morphology Qualified Code(s): S42.202A - Unspecified fracture of upper end of left humerus, initial encounter for closed fracture (2) Fracture of left inferior pubic ramus Qualifiers: Encounter type: initial encounter Fracture type: closed Qualified Code(s): S32.592A - Other specified fracture of left pubis, initial encounter for closed fracture 01/13/23 1046 <Electronically signed by Eduardo Hicks DO> Cosigner Signature (if applicable): CC: Dr. Leyda Garcia MD; Dr. Eric Bravo DO; Dr. Lana Parks MD; Dr. Wan Oh MD ~ [facility] Work Phone: 1(358) 738-316107-31-2023 Progress note Author Eduardo Hicks [facility] January 13, 2023 10:36am Note Date/Time January 13, 2023 7:38 am [facility] Medical Records Department [address] [place] [address] Progress Note - Hospitalist 01/13/23 0734 MR#: [id number] Acct: [id number] Name: DURAN DEVI Rep #:[id number] : 1950 72 From: Eduardo Hicks DO PCP: Dr. Eric Bravo DO Status:ADM IN Location: [place] [address] Reason for Visit Reason for Visit: Diagnoses Other specified fracture of left pubis, initial encounter for closed fracture (01/10/23) Unspecified fracture of upper end of left humerus, initial encounter for closed fracture (01/10/23) Unspecified fall, initial encounter (01/10/23) Subjective Subjective No new events. Objective Data Objective Data Vital Signs: Vital Signs Temp Pulse Resp BP Pulse Ox O2 Del Method O2 Flow Rate 37.2 C 81 18 131/82 H 94 Room Air 2 01/13/23 02:00 01/13/23 02:00 01/13/23 02:00 01/13/23 02:00 01/13/23 02:00 01/13/23 02:00 01/12/23 13:49 Oxygen Flow Rate (L/min) 2 Oxygen Delivery Method Room Air Weight: 55.537 kg Body Mass Index (BMI) 20.9 Intake & Output: Intake and Output for Last 24 Hours 01/11/23 01/12/23 01/13/23 23:59 23:59 23:59 Intake Total 300 / 1100 1730 / 1730 400 / 400 Output Total 850 / 1675 1275 / 1275 600 / 600 Balance -550 / -575 455 / 455 -200 / -200 Lab / Micro Data 01/13/23 05:36 01/13/23 05:36 Labs: Laboratory Results - last 24 hr 01/12/23 11:27: POC Glucose 262 H 01/12/23 16:06: POC Glucose 250 H 01/12/23 22:23: POC Glucose 251 H 01/13/23 05:36: WBC 10.1, RBC 3.87 L, Hgb 11.0 L, Hct 33.0 L, MCV 85.3, MCH 28.4, MCHC 33.3, RDW Std Deviation 48.6 H, RDW Coeff of Mateus 15.6 H, Plt Count 297, MPV 10.7, Immature Gran % (Auto) 0.400, Neut % (Auto) 69.9, Lymph % (Auto) 19.6, Hood % (Auto) 6.2, Eos % (Auto) 2.9, Baso % (Auto) 1.0, Absolute Neuts (auto) 7.1, Absolute Lymphs (auto) 1.97, Nucleated RBC % 0, Sodium 132 L, Potassium 4.0, Chloride 102, Carbon Dioxide 25.0, Anion Gap 5, BUN 8, Creatinine0.40 L, Estim Creat Clear Calc 45.20, Est GFR (MDRD) Af Amer 204, Est GFR (MDRD)Non-Af 169, BUN/Creatinine Ratio 20.2 H, Glucose 150 H, Calcium 8.9 01/13/23 06:29: POC Glucose 164 H Micro: Microbiology 01/10/23 16:30 Urine, Clean Catch Urine Culture - Final Mixed Gram Positive Organisms Physical Exam Const alert and no apparent distress HEENT head/scalp atraumatic and moist oral mucous membranes Extremity Extremity Narrative: left arm in sling. Assessment & Plan Assessment/Plan (1) Closed fracture of left proximal humerus: QUALIFIERS: Encounter type: initial encounter Fracture morphology: unspecified fracture morphology Qualified Code(s): S42.202A - Unspecified fracture of upper end of left humerus, initial encounter for closed fracture PLAN: left proximal closed humeral fracture * due to mechanical fall * LUE in sling * PT/OT On board * orthopedics consulted; recommend conservative management for now, though RTSA and ORIF optionas are also available. To follow up with orthopedic surgery on outpatient basis. * oral and IV pain meds- tylenol and IV morphine prn as well as oxycodone prn * fall precautions (2) Fracture of left inferior pubic ramus: QUALIFIERS: Encounter type: initial encounter Fracture type: closed Qualified Code(s): S32.592A - Other specified fracture of left pubis, initial encounter for closed fracture PLAN: left pubic rami fracture * due to mechanical fall * PT/OT on board. * orthopedic surgery on board. Management is conservative * fall precautions (3) Hypokalemia: PLAN: resolved after replacement. PLAN: Plan Chronic conditions: * Rheumatoid arthritis: on methotrexate and folic acid supplementation * Hypothyroidism;on synthroid * Hypertension:fair control. not on any oral meds. IV hydralazine prn * Type 2 diabetes mellitus: on lantus. Per her pharmacy, her home dose was 38 units bid, so this was started yesterday. Patient had hypoglycemia with with her blood sugar being 67. We will cut down the insulin to 38 units qhs. on ISS. Accuchecks ACHS. * #Hyperlipidemia: DVT prophylaxis; lovenox Disposition: to [facility] 01/13/23 1036 <Electronically signed by Eduardo Hicks DO> Cosigner Signature (if applicable): CC: ~ Signed [facility] Work Phone: 1(506) 925-507607-30-2023 Progress note Author Lana Guillorytrung [facility] January 12, 2023 3:13pm Note Date/Time January 12, 2023 9:05 am [facility] Medical Records Department [address] [place] [address] Progress Note 01/12/23 0901 MR#: [id number] Acct: [id number] Name: DURAN DEVI Rep #:[id number] : 1950 72 From: Lana Parks MD PCP: Dr. Eric Bravo, DO Status:ADM IN Location: [facility] XL091-8 Subjective Subjective Patient seen and examined. She has no complaints today. Pain is well controlled. She had an uneventful night. Review of systems otherwise negative. Her blood pressure was low today; it was in the 60s and became up after she wasgiven some orange juice. Objective Data Objective Data Vital Signs: Vital Signs Temp Pulse Resp BP Pulse Ox O2 Del Method O2 Flow Rate 97.9 F 70 14 148/85 H 95 Nasal Cannula 2 01/12/23 01:39 01/12/23 01:39 01/12/23 01:39 01/12/23 01:39 01/12/23 08:06 01/12/23 08:06 01/12/23 08:06 Oxygen Flow Rate (L/min) 2 Oxygen Delivery Method Nasal Cannula Weight: 122 lb 9.232 oz Body Mass Index (BMI) 21.0 Intake & Output: Intake and Output for Last 24 Hours 01/10/23 01/11/23 01/12/23 23:59 23:59 23:59 Intake Total 1566.67 / 1566.67 300 / 1100 830 / 830 Output Total 1200 / 1200 850 / 1675 825 / 825 Balance 366.67 / 366.67 -550 / -575 5 / Lab / Micro Data 01/12/23 06:24 01/12/23 06:24 Labs: Laboratory Results - last 24 hr 01/11/23 06:32: POC Glucose 330 H 01/11/23 11:33: POC Glucose 379 H 01/11/23 17:01: POC Glucose 353 H 01/11/23 22:04: POC Glucose 361 H 01/12/23 06:24: WBC 10.5, RBC 4.03 L, Hgb 11.0 L, Hct 34.6 L, MCV 85.9, MCH 27.3, MCHC 31.8 L, RDW Std Deviation 48.0 H, RDW Coeff of Mateus 15.2 H, Plt Count 318, MPV 11.0, Immature Gran % (Auto) 0.700, Neut % (Auto) 73.7 H, Lymph % (Auto) 16.5 L, Hood % (Auto) 5.5, Eos % (Auto) 2.5, Baso % (Auto) 1.1 H, Absolute Neuts (auto) 7.7, Absolute Lymphs (auto) 1.73, Nucleated RBC % 0, Sodium 132 L, Potassium 3.4 L, Chloride 101, Carbon Dioxide 26.0, Anion Gap 5, BUN 6 L, Creatinine 0.21 L, Estim Creat Clear Calc 45.20, Est GFR (MDRD) Af [id number], Est GFR (MDRD) Non-Af 354, BUN/Creatinine Ratio 28.7 H, Glucose 67 L, Calcium 8.7 01/12/23 06:31: POC Glucose 62 L 01/12/23 06:57: POC Glucose 96 Radiography Diagnostic Testing: Radiology Impression Chest X-Ray 01/11/23 05:15 IMPRESSION: Stable prominent interstitial markings, a nonspecific finding may be secondary to edema and/or an infectious process. Stable hazy opacity within the right midlung may reflect atelectasis and/or pneumonia. Indeterminate 1.5 cm nodular opacity within the right upper/midlung may be secondary to confluence of shadows however cannot exclude a pulmonary nodule, recommend PA and lateral images for further characterization. Left basilar atelectasis and/or scarring. Electronically Signed: Shanthi Umana MD at 10:39 EDT , Physical Exam Const alert, oriented x3 and no apparent distress General Appearance: cooperative and well developed HEENT normocephalic, head/scalp atraumatic and moist oral mucous membranes Eyes PERRL and EOMs intact bilaterally Neck no lymphadenopathy and supple General: trachea midline Lymph Lymphatic: no lymphadenopathy noted and no lymphedema noted Resp normal respiratory effort, normal air movement and clear to auscultation bilaterally Cardio regular rate, regular rhythm, S1 normal heart sound, S2 normal heart sound and no murmurs GI normal to inspection, nondistended, normoactive bowel sounds, soft to palpation,non-tender and non-distended Extremity normal capillary refill and no clubbing, cyanosis or edema Extremity Narrative: LUE in sling. Skin General Skin Exam: no breakdown Neuro CN's II-XII intact bilaterally, no focal motor deficits and no sensory deficits noted Psych thought process normal and cooperative Appearance: appropriate Assessment & Plan Assessment/Plan (1) Closed fracture of left proximal humerus: (2) Fracture of left inferior pubic ramus: PLAN: Plan #LEft proximal closed humeral fracture * due to mechanical fall * LUE in sling * PT/OT On board * orthopedics consulted; recommend conservative management for now, though RTSA and ORIF optionas are also available. To follow up with orthopedic surgery on outpatient basis. * oral and IV pain meds- tylenol and IV morphine prn as well as oxycodone prn * fall precautions * #left pubic rami fracture * due to mechanical fall * PT/OT on board. * orthopedic surgery on board. Management is conservative * fall precautions * #Hypokalemia: potassium is 3.4. Will replace and trend. #Rheumatoid arthritis: on methotrexate and folic acid supplementation #Hypothyroidism;on synthroid #Hypertension:not on any oral meds. IV hydralazine prn #TYpe 2 diabetes mellitus * on lantus. Per her pharmacy, her home dose was 38 units bid, so this was started yesterday * Patient had hypoglycemia with with her blood sugar being 67. We will cut down the insulin to 38 units qhs * #Hyperlipidemia: * on ISS. Accuchecks ACHS. * blood sugars running high. She takes a long acting insulin at home but doesnt know the dosage. * Nursing trying to clarify what dosage she takes at home by calling her pharmacy. continue high dose slidiing scale. DVT prophylaxis; lovenox Disposition: will need rehab. PT.OT on board. Awaiting placement Charges/Coding Visit Charges Inpatient E&M: 44170 Subs Hosp L2 01/12/23 1513 <Electronically signed by Lana Parks MD> Lana Parks MD Cosigner Signature (if applicable): CC: ~ Signed [facility] Work Phone: 1(157) 124-383707-29-2023 Progress note Author Lana Parks [facility] January 11, 2023 11:41am Note Date/Time January 11, 2023 11:3 6am [facility] Medical Records Department [address] [place] [address] Progress Note 01/11/23 1133 MR#: [id number] Acct: [id number] Name: DURAN DEVI Rep #:[id number] : 1950 72 From: Lana Parks MD PCP: Dr. Eric Bravo, DO Status:ADM IN [id number] Subjective Subjective Patient seen and examined. Pain was fairly well controlled. She had no complaints and had an uneventful night. Review of systems otherwise negative. She has remained hemodynamically stable. She is awaiting placement. Objective Data Objective Data Vital Signs: Vital Signs Temp Pulse Resp BP Pulse Ox O2 Del Method O2 Flow Rate 98.4 F 78 18 132/69 H 92 Nasal Cannula 2 01/11/23 10:00 01/11/23 10:00 01/11/23 10:00 01/11/23 10:00 01/11/23 10:00 01/11/23 10:00 01/11/23 10:00 Oxygen Flow Rate (L/min) 2 Oxygen Delivery Method Nasal Cannula Weight: 122 lb 5.705 oz Body Mass Index (BMI) 20.9 Intake & Output: Intake and Output for Last 24 Hours 01/09/23 01/10/23 01/11/23 23:59 23:59 23:59 Intake Total 1566.67 / 1566.67 Output Total 1200 / 1200 450 / 450 Balance 366.67 / 366.67 -450 / -450 Lab / Micro Data 01/11/23 05:55 01/11/23 05:55 Labs: Laboratory Results - last 24 hr 01/10/23 11:25: POC Glucose 462 H* 01/10/23 12:35: POC Glucose 462 H* 01/10/23 16:24: POC Glucose 272 H 01/10/23 16:30: Urine Color Yellow, Urine Clarity Clear, Urine pH 6.0, Ur Specific [place]worth 1.015, Urine Protein 15 H, Urine Glucose (UA) 1000 H, Urine Ketones 5 H, Urine Occult Blood Negative, Urine Nitrite Negative, Urine Bilirubin Negative, Urine Urobilinogen Normal, Ur Leukocyte Esterase 500 H, Urine RBC 0 SEEN, Urine WBC 10-25 SEEN, Ur Squamous Epith Cells 0-5 SEEN, Urine Bacteria RARE, Urine Mucus 0 SEEN 01/10/23 21:51: POC Glucose 386 H 01/11/23 05:55: WBC 12.6 H, RBC 3.92 L, Hgb 10.8 L, Hct 34.0 L, MCV 86.7, MCH 27.6, MCHC 31.8 L, RDW Std Deviation 49.1 H, RDW Coeff of Mateus 15.6 H, Plt Count 278, MPV 11.3, Immature Gran % (Auto) 0.600, Neut % (Auto) 79.3 H, Lymph % (Auto) 11.1 L, Hood % (Auto) 6.0, Eos % (Auto) 1.9, Baso % (Auto) 1.1 H, Absolute Neuts (auto) 10.0 H, Absolute Lymphs (auto) 1.40, Nucleated RBC % 0, Sodium 126 L, Potassium 4.2, Chloride 95 L, Carbon Dioxide 24.0, Anion Gap 7, BUN 12, Creatinine 0.41 L, Estim Creat Clear Calc 45.20, Est GFR (MDRD) Af Amer 199, Est GFR (MDRD) Non-Af 164, BUN/Creatinine Ratio 29.5 H, Glucose 330 H, Calcium 8.5, Total Bilirubin 0.50, AST 9 L, ALT 18, Alkaline Phosphatase 187 H, Total Protein 6.7, Albumin 2.7 L, Globulin 4.0, Albumin/Globulin Ratio 0.7 L 01/11/23 06:32: POC Glucose 330 H Radiography Diagnostic Testing: Radiology Impression Chest X-Ray 01/10/23 06:08 IMPRESSION: Low lung volumes with new bibasilar interstitial process, somewhat confluent, suggesting pulmonary edema given venous congestion. Infectious etiology is not excluded. Electronically Signed: Zeus Jj MD at 7:17 EDT , Chest X-Ray 01/11/23 05:15 IMPRESSION: Stable prominent interstitial markings, a nonspecific finding may be secondary to edema and/or an infectious process. Stable hazy opacity within the right midlung may reflect atelectasis and/or pneumonia. Indeterminate 1.5 cm nodular opacity within the right upper/midlung may be secondary to confluence of shadows however cannot exclude a pulmonary nodule, recommend PA and lateral images for further characterization. Left basilar atelectasis and/or scarring. Electronically Signed: Shanthi Umana MD at 10:39 EDT , Physical Exam Const alert, oriented x3 and no apparent distress General Appearance: cooperative and well developed HEENT normocephalic, head/scalp atraumatic and moist oral mucous membranes Eyes PERRL and EOMs intact bilaterally Neck no lymphadenopathy and supple General: trachea midline Lymph Lymphatic: no lymphadenopathy noted and no lymphedema noted Resp normal respiratory effort, normal air movement and clear to auscultation bilaterally Cardio regular rate, regular rhythm, S1 normal heart sound, S2 normal heart sound and no murmurs GI normal to inspection, nondistended, normoactive bowel sounds, soft to palpation,non-tender and non-distended Extremity normal capillary refill and no clubbing, cyanosis or edema Extremity Narrative: LUE in sling. Skin General Skin Exam: no breakdown Neuro CN's II-XII intact bilaterally, no focal motor deficits and no sensory deficits noted Psych thought process normal and cooperative Appearance: appropriate Assessment & Plan Assessment/Plan (1) Closed fracture of left proximal humerus: (2) Fracture of left inferior pubic ramus: PLAN: Plan #LEft proximal closed humeral fracture * due to mechanical fall * LUE in sling * PT/OT On board * orthopedics consulted; recommend conservative management for now, though RTSA and ORIF optionas are also available. To follow up with orthopedic surgery on outpatient basis. * oral and IV pain meds- tylenol and IV morphine prn as well as oxycodone prn * fall precautions * #left pubic rami fracture * due to mechanical fall * PT/OT on board. * orthopedic surgery on board. Management is conservative * fall precautions * #Rheumatoid arthritis: on methotrexate and folic acid supplementation #Hypothyroidism;on synthroid #Hypertension:not on any oral meds. IV hydralazine prn #Hyperlipidemia: * on ISS. Accuchecks ACHS. * blood sugars running high. She takes a long acting insulin at home but doesnt know the dosage. * Nursing trying to clarify what dosage she takes at home by calling her pharmacy. continue high dose slidiing scale. DVT prophylaxis; lovenox Disposition: will need rehab. PT.OT on board. Awaiting placement Charges/Coding Visit Charges Inpatient E&M: 43659 Subs Hosp L2 01/11/23 1141 <Electronically signed by Lana Parks MD> Lana Parks MD Cosigner Signature (if applicable): CC: ~ Signed [facility] Work Phone: 1(645) 773-802907-28-2023 Progress note Author [facility] January 10, 2023 5:33pm Note Date/Time January 10, 2023 11:[address] [facility] Medical Records Department [address] [place] [id number] Progress Note 01/10/23 1111 MR#: [id number] Acct: [id number] Name: DURAN DEVI Rep #:[id number] : 1950 72 From: Lana Parks MD PCP: Dr. Eric Bravo, DO Status:ADM IN Location: [facility] HS655-8 Subjective Subjective Patient seen and examined. Pain is well controlled, especially when she doesnt move around. She presented to the hospital after she fell whilst going to the bathroom. On admission, she was found to have a left proximal humeral fracture and pubic rami fracture. She has remained hemodynamically stable. Objective Data Objective Data Vital Signs: Vital Signs Temp Pulse Resp BP Pulse Ox O2 Del Method 98 F 68 18 165/75 H 96 Room Air 01/10/23 08:12 01/10/23 08:12 01/10/23 08:12 01/10/23 08:12 01/10/23 08:12 01/10/23 09:54 Oxygen Delivery Method Room Air Weight: 122 lb 3.2 oz Body Mass Index (BMI) 20.9 Lab / Micro Data 01/10/23 04:50 01/10/23 04:50 Labs: Laboratory Results - last 24 hr 01/10/23 04:50: WBC 17.3 H, RBC 3.92 L, Hgb 10.8 L, Hct 34.0 L, MCV 86.7, MCH 27.6, MCHC 31.8 L, RDW Std Deviation 49.0 H, RDW Coeff of Mateus 15.4 H, Plt Count 317, MPV 10.6, Immature Gran % (Auto) 0.800, Neut % (Auto) 85.2 H, Lymph % (Auto) 8.4 L, Hood % (Auto) 4.8, Eos % (Auto) 0.2, Baso % (Auto) 0.6, Absolute Neuts (auto) 14.7 H, Absolute Lymphs (auto) 1.46, Nucleated RBC % 0, Sodium 131 L, Potassium 4.2, Chloride 100, Carbon Dioxide 22.0, Anion Gap 9, BUN 14, Creatinine 0.56, Estim Creat Clear Calc 45.20, Est GFR (MDRD) Af Amer 137, Est GFR (MDRD) Non-Af 113, BUN/Creatinine Ratio 24.9 H, Glucose 288 H, Calcium 8.3 L 01/10/23 06:06: Procalcitonin 0.04 01/10/23 08:39: POC Glucose 235 H Radiography Diagnostic Testing: Radiology Impression Hip/Pelvis X-Ray 01/10/23 04:17 IMPRESSION: Possible left pubic rami fractures. This may be better evaluated with dedicated pelvic CT. Electronically Signed: Zeus Jj MD at 5:19 EDT , Knee X-Ray 01/10/23 04:17 IMPRESSION: Severe degenerative change of the left knee without acute osseous abnormality. Electronically Signed: Zeus Jj MD at 5:14 EDT , Shoulder X-Ray 01/10/23 04:17 IMPRESSION: Left humerus fracture. Electronically Signed: Zeus Jj MD at 5:03 EDT , Pelvis CT 01/10/23 06:06 IMPRESSION: Acute left superior and inferior pubic rami fractures. Lower lumbar vertebral body compression deformities of uncertain chronicity. Moderate amount of stool within distended rectosigmoid raising concern for impaction. Electronically Signed: Zeus Jj MD at 7:13 EDT , Chest X-Ray 01/10/23 06:08 IMPRESSION: Low lung volumes with new bibasilar interstitial process, somewhat confluent, suggesting pulmonary edema given venous congestion. Infectious etiology is not excluded. Electronically Signed: Zeus Jj MD at 7:17 EDT , Physical Exam Const alert, oriented x3 and no apparent distress General Appearance: cooperative HEENT normocephalic, head/scalp atraumatic and moist oral mucous membranes Eyes PERRL and EOMs intact bilaterally Neck no lymphadenopathy and supple Lymph Lymphatic: no lymphadenopathy noted and no lymphedema noted Resp normal respiratory effort, normal air movement and clear to auscultation bilaterally Cardio regular rate, regular rhythm, S1 normal heart sound, S2 normal heart sound and no murmurs GI normal to inspection, nondistended, normoactive bowel sounds, soft to palpation,non-tender and non-distended Extremity normal capillary refill and no clubbing, cyanosis or edema Extremity Narrative: LUE in sling. Skin General Skin Exam: no breakdown Neuro CN's II-XII intact bilaterally, no focal motor deficits and no sensory deficits noted Psych thought process normal and cooperative Appearance: appropriate Assessment & Plan Assessment/Plan (1) Closed fracture of left proximal humerus: (2) Fracture of left inferior pubic ramus: PLAN: Plan #LEft proximal closed humeral fracture * due to mechanical fall * LUE in sling * PT/OT On board * orthopedics consulted; recommend conservative management for now, though RTSA and ORIF optionas are also available. To follow up with orthopedic surgery on outpatient basis. * oral and IV pain meds- tylenol and IV morphine prn as well as oxycodone prn * fall precautions * #left pubic rami fracture * due to mechanical fall * PT/OT on board. * orthopedic surgery on board. Management is conservative * fall precautions * #Rheumatoid arthritis: on methotrexate and folic acid supplementation #Hypothyroidism;on synthroid #Hypertension:not on any oral meds. IV hydralazine prn #Hyperlipidemia: on ISS. Accuchecks ACHS. DVT prophylaxis; lovenox Disposition: will need rehab. PT.OT on board Charges/Coding Visit Charges Inpatient E&M: 45976 Subs Hosp L2 01/10/23 1733 <Electronically signed by Lana Parks MD> Lana Parks MD Cosigner Signature (if applicable): CC: ~ Signed [facility] Work Phone: 1(704) 559-986607-28-2023 Consult note Author Wan Oh [facility] January 10, 2023 11:06am Note Date/Time January 10, 2023 8:48 am [facility] Medical Records Department [address] [place] [address] Consultation - Orthopedics 01/10/23 0846 MR#: [id number] Acct: [id number] Name: DURAN DEVI Rep #:[id number] : 1950 72 From: Wan Oh MD PCP: Dr. Eric Bravo, DO Status:ADM IN Location: [facility] [place] [id number] HPI Consult Data Date of Consult: 01/10/23 HPI Narrative HPI Narrative: DURAN DEVI, is a 72 F who presents with a fall, L proximal humerus fracture and publc rami fracture. Admitted for rehab under hospitalist. Patienthad a trip and fall while at home. Fell on an outstretched hand. The patient is right- hand dominant. There is seen in hospital third floor. They are wearing a sling on the left upper extremity. I got called this morning at around 6:30 in the morning by the ED physician. Saw the patient at about 930 this morning. [facility] Medical History (Updated 01/10/23 @ 05:[address] Leyda Garcia MD) Chronic anemia Diabetes mellitus, type 2 Former tobacco use HTN (hypertension) Hypothyroidism Rheumatoid arthritis Home Medications insulin aspart U-100 100 unit/mL (3 mL) subcutaneous pen (Novolog FlexPen U-100 Insulin aspart) 12 unit (0.12 mL) subcut BID #15 mL 12/01/21 [Rx Last Taken Unknown] folic acid 400 mcg tablet 0.4 mg PO DAILY SUPPLEMENT 03/15/22 [History Last Taken Unknown] levothyroxine 150 mcg tablet 150 mcg PO DAILY THYROID 03/15/22 [History Last Taken Unknown] losartan 25 mg tablet 25 mg PO DAILY BLOOD PRESSURE 03/15/22 [History Last Taken Unknown] magnesium oxide 400 mg PO DAILY SUPPLEMENT 03/15/22 [History Last Taken Unknown] methotrexate sodium 2.5 mg tablet 12.5 mg PO QWEEK inflammation 03/15/22 [History Last Taken Unknown] insulin detemir U-100 100 unit/mL (3 mL) subcutaneous pen 35 unit subcut DAILY dm 01/10/23 [History Last Taken Unknown] prednisone 5 mg tablet 5 mg PO DAILY arthritis 01/10/23 [History Last Taken Unknown] sertraline 25 mg tablet 25 mg PO DAILY depression 01/10/23 [History Last Taken Unknown] Allergy/AdvReac Type Severity Reaction Status Date / Time egg [eggs] AdvReac Vomiting Verified 01/10/23 04:14 Family History Mother Diabetes Heart disease Father Diabetes Cancer Throat cancer Surgical History H/O: s/p right shoulder surgery Social History household members: spouse Smoking Status: Former smoker alcohol intake: never substance use type: does not use Vital Signs Vital Signs Vital Signs: 01/10/23 04:11 01/10/23 07:10 01/10/23 08:12 Temperature 97.6 F L 98.4 F 98 F Temperature Source Temporal Temporal Oral Pulse Rate 84 71 68 Respiratory Rate 18 18 18 Blood Pressure 169/81 H 145/88 H 165/75 H Blood Pressure Mean 110 107 105 Blood Pressure Source Monitor Blood Pressure Position Supine Blood Pressure Location Right Arm Pulse Ox 94 93 96 Oxygen Delivery Method Room Air Room Air Room Air Weight Weight: 122 lb 3.2 oz Body Mass Index (BMI) 20.9 Physical Exam Const alert, oriented x3, no apparent distress and well nourished HEENT normocephalic Eyes EOMs intact bilaterally Resp Effort and Inspection: able to speak in complete sentences Extremity normal capillary refill and no clubbing, cyanosis or edema Extremity Narrative: Left upper extremity closed injury. Mild swelling. No ecchymosis. Normal sensation motor function axillary nerve. No pain at the clavicle elbow hand or wrist. No pain to the hips with logrolling testing or direct palpation. Closed injury again to the pelvis. There is some mild pain to deep palpation along the anterior left pelvic brim. Normal sensation motor function of the foot the foot is warm and well-perfused good pedal pulses normal sensation in the dorsum and plantar aspect of the foot. Lab / Micro Data 01/10/23 04:50 01/10/23 04:50 Labs: Laboratory Results - last 24 hr 01/10/23 04:50: WBC 17.3 H, RBC 3.92 L, Hgb 10.8 L, Hct 34.0 L, MCV 86.7, MCH 27.6, MCHC 31.8 L, RDW Std Deviation 49.0 H, RDW Coeff of Mateus 15.4 H, Plt Count 317, MPV 10.6, Immature Gran % (Auto) 0.800, Neut % (Auto) 85.2 H, Lymph % (Auto) 8.4 L, Hood % (Auto) 4.8, Eos % (Auto) 0.2, Baso % (Auto) 0.6, Absolute Neuts (auto) 14.7 H, Absolute Lymphs (auto) 1.46, Nucleated RBC % 0, Sodium 131 L, Potassium 4.2, Chloride 100, Carbon Dioxide 22.0, Anion Gap 9, BUN 14, Creatinine 0.56, Estim Creat Clear Calc 45.20, Est GFR (MDRD) Af Amer 137, Est GFR (MDRD) Non-Af 113, BUN/Creatinine Ratio 24.9 H, Glucose 288 H, Calcium 8.3 L 01/10/23 06:06: Procalcitonin 0.04 Radiology Impression Hip/Pelvis X-Ray 01/10/23 04:17 IMPRESSION: Possible left pubic rami fractures. This may be better evaluated with dedicated pelvic CT. Electronically Signed: Zeus Jj MD at 5:19 EDT , Knee X-Ray 01/10/23 04:17 IMPRESSION: Severe degenerative change of the left knee without acute osseous abnormality. Electronically Signed: Zeus Jj MD at 5:14 EDT , Shoulder X-Ray 01/10/23 04:17 IMPRESSION: Left humerus fracture. Electronically Signed: Zeus Jj MD at 5:03 EDT , Pelvis CT 01/10/23 06:06 IMPRESSION: Acute left superior and inferior pubic rami fractures. Lower lumbar vertebral body compression deformities of uncertain chronicity. Moderate amount of stool within distended rectosigmoid raising concern for impaction. Electronically Signed: Zeus Jj MD at 7:13 EDT , Chest X-Ray 01/10/23 06:08 IMPRESSION: Low lung volumes with new bibasilar interstitial process, somewhat confluent, suggesting pulmonary edema given venous congestion. Infectious etiology is not excluded. Electronically Signed: Zeus Jj MD at 7:17 EDT , Agree w rad assessment. Assessment & Plan Assessment/Plan (1) Closed fracture of left proximal humerus: PLAN: 72 F L proximal humerus fracture and L pubic rami fracture. Stable pelvic injury LC 1 recommend WBAT with walker PRN. For L proximal humerus, reasonable alignment and concomitant injuries so would recommend non op mgt, although RTSA vs ORIF options here as well. FU 1 week post discharge in clinic, will not follow while in hospital but please call w concerns. Patient can start to take the sling off 3-4 times a day pendulum exercises gently no active range of motion of the shoulder but can do full range of motion of the hand wrist and elbow as tolerated. Explained the different treatment options the patient and she is satisfied with nonoperative management and will follow-up in 1 week's time. Bill cpt closed tx L rami fracture and CPT closed tx L proximal humerus (2) Fracture of left inferior pubic ramus: 01/10/23 1106 <Electronically signed by Wan Oh MD> Cosigner Signature (if applicable): CC: Dr. Leyda Garcia MD; Dr. Eric Bravo DO; Dr. Wan Oh MD~ Signed [facility] Work Phone: 1([phone]) 439-983307-28-2023 Discharge summary Author Franklyn Silva [facility] January 10, 2023 6:39am Note Date/Time January 10, 2023 4:22 am [facility] Medical Records Department [address] [place] [address] Emergency Department Summary 01/10/23 MR#: [id number] Acct: [id number] Name: DURAN DEVI Rep #:[id number] : 1950 72 From: Franklyn Silva MD PCP: Dr. Eric Bravo DO Status:ADM IN [id number] HPI - Fall History of Present Illness Chief Complaint: Fall Informant: patient Occured/Mechanism Occurred: Today Narrative Narrative: Got up in the middle of the night to go to the bathroom, she went without any issue and on the way back using her walker somehow lost her balance and fell. states she collapsed the walker in the process. She fell to the left side injuring her left knee, hip, shoulder. No head injury, no neck or back pain from this, no prodromal symptoms or dizziness. No recent illness. Unable to stand, required EMS to bring her. States she has chronic arthritis in the left knee with swelling, that preexisted before her fall. She has limited rangeof motion in her left knee which also was similar prior to her fall. [facility] Medical History (Updated 01/10/23 @ 05:[address] Leyda Garcia MD) Chronic anemia Diabetes mellitus, type 2 Former tobacco use HTN (hypertension) Hypothyroidism Rheumatoid arthritis Home Medications insulin aspart U-100 100 unit/mL (3 mL) subcutaneous pen (Novolog FlexPen U-100 Insulin aspart) 12 unit (0.12 mL) subcut BID #15 mL 12/01/21 [Rx Last Taken Unknown] folic acid 400 mcg tablet 0.4 mg PO DAILY SUPPLEMENT 03/15/22 [History Last Taken Unknown] levothyroxine 150 mcg tablet 150 mcg PO UD THYROID 03/15/22 [History Last Taken Unknown] losartan 25 mg tablet 25 mg PO DAILY BLOOD PRESSURE 03/15/22 [History Last Taken Unknown] magnesium oxide 400 mg PO DAILY SUPPLEMENT 03/15/22 [History Last Taken Unknown] methotrexate sodium 2.5 mg tablet 12.5 mg PO QWEEK inflammation 03/15/22 [History Last Taken Unknown] insulin detemir U-100 100 unit/mL (3 mL) subcutaneous pen (Levemir FlexTouch U- 100 Insulin) 35 unit (0.35 mL) subcut DAILY #15 mL 03/17/22 [Rx Last Taken Unknown] Allergy/AdvReac Type Severity Reaction Status Date / Time egg [eggs] AdvReac Vomiting Verified 01/10/23 04:14 Family History Mother Diabetes Heart disease Father Diabetes Cancer Throat cancer Surgical History H/O: s/p right shoulder surgery Social History household members: spouse Smoking Status: Former smoker alcohol intake: never substance use type: does not use ROS ROS ED Constitutional Constitutional ED: Denies chills or fever(s) Eyes Eyes: Denies change in vision or diplopia ENT ENT ED: Denies ear pain, epistaxis, facial pain or rhinorrhea Cardiovascular Cardiovascular: Denies chest pain or palpitations Respiratory/Chest Respiratory/Chest: Denies cough or dyspnea Gastrointestinal Gastrointestinal: Denies abdominal pain, diarrhea, melena, nausea or vomiting Genitourinary Genitourinary ED: Denies dysuria or hematuria Musculoskeletal Musculoskeletal: Reports extremity pain; Denies back pain or neck pain Integumentary Denies abscess, Abrasions, laceration or rash Neurologic Neurologic: Denies confusion, headache(s), paresthesias or weakness EXAM Physical Exam Const Vital Signs: 01/10/23 04:11 Temperature 97.6 F L Temperature Source Temporal Pulse Rate 84 Respiratory Rate 18 Blood Pressure 169/81 H Blood Pressure Mean 110 Pulse Ox 94 Oxygen Delivery Method Room Air Positive well nourished and well developed General Appearance ED: well developed and NAD HEENT Reports nasal mucous membranes and turbinates normal atraumatic Face and Sinus: Negative for facial tenderness Eyes PERRL and EOMs intact bilaterally Visual Acuity: other Other Details: no entrapment or pain with extraocular movements Neck full ROM and supple General: Negative for tenderness Chest Wall inspection of chest normal and palpation of chest normal Chest: symmetrical chest wall rise; Negative for crepitus or tenderness Resp normal respiratory effort and clear to auscultation bilaterally Percussion: other equal BS bilat Cardio no murmurs Rate: regular rate Rhythm: regular rhythm GI normal to inspection, nondistended, normoactive bowel sounds, soft to palpation and non-tender Back/Spine normal ROM Cervical Spine: Negative for cervical spine tenderness Thoracic Spine / Upper Back: Negative for thoracic spinal tenderness Lumbar Spine / Lower Back: Negative for lumbar spinal tenderness Extremity Extremity Narrative: Limited range of motion left shoulder no deformity, but tender in the anterior aspect of the proximal humerus. No acromioclavicular tenderness. Nontender distal throughout the left upper extremity, good supination and pronation without elbow discomfort. Neurovascular intact distally including axillary nerve distribution. Pain in the left hip joint with gentle passive internal and external rotation. Nontender to greater trochanter. No deformity/shortening. Swelling of the left knee, no bony tenderness, limited range of motion which she states is her baseline. Neurovascular intact distally. Normal exam of right upper and lower extremities. General Extremety ED: Yes tenderness Neuro oriented x3, CN's II-XII intact bilaterally, moves all extremities, no focal motor deficits and no sensory deficits noted Dmitry Coma Scale: document GCS findings Spontaneous Obeys Commands Oriented 15 Sensorium / Orientation: awake and alert Psych mental status grossly normal and thought process normal Skin no wounds Lesions: no lesions Rashes: no rashes MDM MDM MDM Narrative Medical decision making narrative: 2 view x-ray series of the left shoulder on my interpretation shows impacted proximal humerus fracture, it appears to be likely a 1 part nonoperative fracture. She was placed in a sling for that. Three-view x-ray series of the left hip on my interpretation shows what appears to be an inferior pubic ramus fracture, possibly the superior ramus also, but no obvious fracture of the femoral neck or femoral head. Radiology in agreement. 2 view x-ray series of the left knee shows no acute fractures just severe arthritis. The patient was given morphine prior to x-ray. We tried to see if she could bear weight, she cannot bear weight on her left lower extremity due to pain in the groin, and is not able to stand without bearing weight on her left lower extremity because her left shoulder is broken and she is unable to use her walker. Given this, she is agreeable to stay for further evaluation and likely transfer to short-term rehab, discussed with hospitalist and orthopedics. She does have a bit of a leukocytosis here, I suspect this is stress response from her fall given that she has no recent illness, and I did reevaluate whether she had any symptoms of 1 which she does not; no urinary symptoms, no cough, shortness of breath, or GI symptoms recently. History & Record Review Discussion w/independent historian: Patient and Significant other Lab Data Attestation: I reviewed the patient's lab results. Labs: Laboratory Results - last 24 hr 01/10/23 04:50 WBC 17.3 H RBC 3.92 L Hgb 10.8 L Hct 34.0 L MCV 86.7 MCH 27.6 MCHC 31.8 L RDW Std Deviation 49.0 H RDW Coeff of Mateus 15.4 H Plt Count 317 MPV 10.6 Immature Gran % (Auto) 0.800 Neut % (Auto) 85.2 H Lymph % (Auto) 8.4 L Hood % (Auto) 4.8 Eos % (Auto) 0.2 Baso % (Auto) 0.6 Absolute Neuts (auto) 14.7 H Absolute Lymphs (auto) 1.46 Nucleated RBC % 0 Sodium 131 L Potassium 4.2 Chloride 100 Carbon Dioxide 22.0 Anion Gap 9 BUN 14 Creatinine 0.56 Estim Creat Clear Calc 45.20 Est GFR (MDRD) Af Amer 137 Est GFR (MDRD) Non-Af 113 BUN/Creatinine Ratio 24.9 H Glucose 288 H Calcium 8.3 L Radiography Diagnostic Testing: Clinical Impression(s) from Imaging Studies Hip/Pelvis X-Ray 01/10/23 04:17 IMPRESSION: Possible left pubic rami fractures. This may be better evaluated with dedicated pelvic CT. Electronically Signed: Zeus Jj MD at 5:19 EDT , Knee X-Ray 01/10/23 04:17 IMPRESSION: Severe degenerative change of the left knee without acute osseous abnormality. Electronically Signed: Zeus Jj MD at 5:14 EDT , Shoulder X-Ray 01/10/23 04:17 IMPRESSION: Left humerus fracture. Electronically Signed: Zeus Jj MD at 5:03 EDT , Management Discussion w/another healthcare provider: Hospitalist and Print Binding And Finishing Worker (Dr. Oh) Discharge Plan Dx/Rx/DC Orders Clinical Impression: Closed fracture of left proximal humerus, Fracture of left inferior pubic ramus, Inability to walk, Accidental fall Disposition Disposition: Acute Care Hospital [facility] What to do if you have Problems For any increased pain, shortness of breath, bleeding, nausea or vomiting, chest pain, or any unexpected problems, contact your Primary Care Provider. Call [facility] ([phone]) or report to the closest Emergency Room. Call 911 if necessary. 01/10/23 0639 <Electronically signed by Franklyn Silva MD> Cosigner Signature (if applicable): CC: Dr. Eric Bravo, DO ~ Signed [facility] Work Phone: 1(779) 419-870107-28-2023 History and physical note Author Leyda Garcia [facility] January 10, 2023 6:19am Note Date/Time January 10, 2023 5:56 am [facility] Medical Records Department [address] [place] [address] H&P Exam - Hospitalist 01/10/23 0552 MR#: [id number] Acct: [id number] Name: DURAN DEVI Rep #:[id number] : 1950 72 From: Leyda Garcia MD PCP: Dr. Eric Bravo, Status:REG ER Location: ED HPI - General General Date of Admission: 01/10/23 Date of Service: 01/10/23 Chief Complaint: Fall, intractable pain, debility. HPI Narrative The patient is a 72 y/o F w/ PMHx: Chronic anemia, Rheumatoid arthritis on MTX, Hypothyroidism, HTN, Diabetes mellitus type II, Former tobacco use who presents to the [facility] ED on 01/10/23 with history of getting up in the middle of the night to use the restroom without any issue on the way however on the way back she wasusing her walker and lost her balance falling collapsing onto the walker in the process landing on her left side with pain immediately to the left knee, left hip and left shoulder with no head injury nor any loss of consciousness however she was unable to stand secondary to pain prompting EMS call. Notes pain without moving in her left upper extremity is approximately 4-5 out of 10 however worsens with any activity attempt. With attempts to ambulate in the ED she noted significant onset of left hip and groin discomfort, severe, 10 out of 10. Patient baseline has issues with her left knee which is why she uses a walker. Work-up in the ED included T97.6, heart rate 84, BP 116/81, respiratoryrate 18, 94% on room air, CBC with WC 17.3, hemoglobin 10.8, MCV 86.7, platelet 217 with left shift, BMP with sodium 131, glucose 288 otherwise not marked appearing, plain film of the left shoulder with a left humeral fracture, plain film of the left knee with severe degenerative changes with no acute osseous abnormality, plain film of the left hip and pelvis with possible left pubic ramifracture. In the ED patient ministered Zofran 4 mg IV x1 and morphine 2 mg IV x1. [facility] Medical History (Updated 01/10/23 @ 05:[address] Leyda Garcia MD) Chronic anemia Diabetes mellitus, type 2 Former tobacco use HTN (hypertension) Hypothyroidism Rheumatoid arthritis Home Medications insulin aspart U-100 100 unit/mL (3 mL) subcutaneous pen (Novolog FlexPen U-100 Insulin aspart) 12 unit (0.12 mL) subcut BID #15 mL 12/01/21 [Rx Last Taken Unknown] folic acid 400 mcg tablet 0.4 mg PO DAILY SUPPLEMENT 03/15/22 [History Last Taken Unknown] levothyroxine 150 mcg tablet 150 mcg PO UD THYROID 03/15/22 [History Last Taken Unknown] losartan 25 mg tablet 25 mg PO DAILY BLOOD PRESSURE 03/15/22 [History Last Taken Unknown] magnesium oxide 400 mg PO DAILY SUPPLEMENT 03/15/22 [History Last Taken Unknown] methotrexate sodium 2.5 mg tablet 12.5 mg PO QWEEK inflammation 03/15/22 [History Last Taken Unknown] insulin detemir U-100 100 unit/mL (3 mL) subcutaneous pen (Levemir FlexTouch U- 100 Insulin) 35 unit (0.35 mL) subcut DAILY #15 mL 03/17/22 [Rx Last Taken Unknown] Allergy/AdvReac Type Severity Reaction Status Date / Time egg [eggs] AdvReac Vomiting Verified 01/10/23 04:14 Family History Mother Diabetes Heart disease Father Diabetes Cancer Throat cancer Surgical History H/O: s/p right shoulder surgery Social History household members: spouse Smoking Status: Former smoker alcohol intake: never substance use type: does not use ROS ROS Narrative Admission Review of Systems: CONSTITUTIONAL: No weight loss, fever, chills, + weakness or fatigue. HEENT: Eyes: No visual loss, blurred vision, double vision or yellow sclerae. Ears, Nose, Throat: No hearing loss, sneezing, congestion, runny nose or sore throat. SKIN: No rash or itching, lesions, wounds. CARDIOVASCULAR: No chest pain, chest pressure or chest discomfort, palpitations, edema, orthopnea, syncopal events. RESPIRATORY: No shortness of breath, cough or sputum, wheezing, hemoptysis. GASTROINTESTINAL: No anorexia, nausea, vomiting or diarrhea, abdominal pain, melena, BRBPR. GENITOURINARY: No dysuria, frequency, urgency or retention. NEUROLOGICAL: No headache, dizziness, syncope, paralysis, ataxia, numbness or tingling in the extremities, focal weakness, change in bowel or bladder control, seizure. MUSCULOSKELETAL: + muscle, back pain, joint pain or stiffness. HEMATOLOGIC: + anemia. LYMPHATICS: No enlarged nodes. No history of splenectomy. PSYCHIATRIC: No history of depression or anxiety. ENDOCRINOLOGIC: No reports of sweating, cold or heat intolerance. No polyuria or polydipsia. ALLERGIES: No history of asthma, hives, eczema or rhinitis. Vital Signs Vital Signs Vital Signs: 01/10/23 04:11 Temperature 97.6 F L Temperature Source Temporal Pulse Rate 84 Respiratory Rate 18 Blood Pressure 169/81 H Blood Pressure Mean 110 Pulse Ox 94 Oxygen Delivery Method Room Air Weight Weight: 134 lb 0.657 oz Body Mass Index (BMI) 23.0 Physical Exam Narrative Physical Examination: General: Awake, alert, oriented x 3 and cooperative, seated upright in the ED bed in no apparent distress, reports mild discomfort to the left upper extremity. Skin: Normal color, normal turgor, no icterus, no cyanosis except for occasional staged ecchymoses. HEENT: AT/NC, EOMI, PERRLA, moderately dry MM, no carotid bruits or JVD noted. Lungs: Mildly diminished, greater bases, appropriate effort, no rales, ronchi or wheezing. Heart: Regular rate and rhythm; no gallop, rub audible. Abdomen: Soft, NTTP, ND, normal BS, no HSM. Extremities: No cyanosis, no clubbing, mild bilateral ankle not markedly pitting edema, status post mechanical fall with left upper extremity in sling with humeral fracture. Neurological: Patient awake, alert, oriented as noted, cognitive function intact; pupils equally reactive to light and accommodation, cranial nerves grossly normal, moving all 4 extremities except extremely limited secondary to left upper extremity in sling with a humeral fracture and left lower extremity with possible pubic rami fracture awaiting CT scan, no focal deficits, strength severely globally decreased secondary to acute presentation Psychiatric: Affect appears fatigued, mildly uncomfortable appearing, no acute evidence of depressive or anxiety feelings. Results Lab / Micro Data 01/10/23 04:50 01/10/23 04:50 Labs: Laboratory Results - last 24 hr 01/10/23 04:50: WBC 17.3 H, RBC 3.92 L, Hgb 10.8 L, Hct 34.0 L, MCV 86.7, MCH 27.6, MCHC 31.8 L, RDW Std Deviation 49.0 H, RDW Coeff of Mateus 15.4 H, Plt Count 317, MPV 10.6, Immature Gran % (Auto) 0.800, Neut % (Auto) 85.2 H, Lymph % (Auto) 8.4 L, Hood % (Auto) 4.8, Eos % (Auto) 0.2, Baso % (Auto) 0.6, Absolute Neuts (auto) 14.7 H, Absolute Lymphs (auto) 1.46, Nucleated RBC % 0, Sodium 131 L, Potassium 4.2, Chloride 100, Carbon Dioxide 22.0, Anion Gap 9, BUN 14, Creatinine 0.56, Estim Creat Clear Calc 45.20, Est GFR (MDRD) Af Amer 137, Est GFR (MDRD) Non-Af 113, BUN/Creatinine Ratio 24.9 H, Glucose 288 H, Calcium 8.3 L Radiology Impression Hip/Pelvis X-Ray 01/10/23 04:17 IMPRESSION: Possible left pubic rami fractures. This may be better evaluated with dedicated pelvic CT. Electronically Signed: Zeus Jj MD at 5:19 EDT , Knee X-Ray 01/10/23 04:17 IMPRESSION: Severe degenerative change of the left knee without acute osseous abnormality. Electronically Signed: Zeus Jj MD at 5:14 EDT , Shoulder X-Ray 01/10/23 04:17 IMPRESSION: Left humerus fracture. Electronically Signed: Zeus Jj MD at 5:03 EDT , Assessment & Plan Assessment/Plan (1) Closed fracture of left proximal humerus: (2) Accidental fall: PLAN: Plan The patient is a 72 y/o F w/ PMHx: Chronic anemia, Rheumatoid arthritis on MTX, Hypothyroidism, HTN, Diabetes mellitus type II, Former tobacco use who presents to the [facility] ED on 01/10/23 with history of getting up in the middle of the night to use the restroom without any issue on the way however on the way back she was using her walker and lost her balance falling collapsing onto the walker in the process landing on her left side with pain immediately to the left knee, left hip and left shoulder with no head injury nor any loss of consciousness however she was unable to stand secondary to pain prompting EMS call. #1. Mechanical fall with left humeral fracture as well as possible left pubic rami fracture or possible femoral fracture: We will admit to medical surgical floor, maintain on fall precautions, maintain left upper extremity in a sling with nonweightbearing status, given unclear left pubic rami fracture will pursue CT of the pelvic to assure no other acute finding, will maintain nonweightbearing status to the lower extremities until this is ascertained however if it is only a pubic rami fracture would be weightbearing as tolerated, will have as needed pain medication in addition to as needed antiemetic medication. PT/OT/case management consultation for discharge planning. We will continue orthopedic surgery consultation initiated per ED with Dr. Oh. #2. Leukocytosis, unclear specific etiology: Admission CBC with WBC 17.3 with left shift, will obtain urinalysis/urine culture as well as chest x-ray in addition to procalcitonin, continue judicious hydration with repeat CBC in the morning. #3. Diabetes mellitus type II: Hold oral home regimen, ADA diet, accu checks w/ ISS. #4. Chronic normocytic anemia: Admission hemoglobin 10.8, baseline appears to be vacillating between 10 and 13, most recently 12/05/2022 hemoglobin 12.7 however prior to this was 11.5, will continue to trend. #5. Hypertension: Continue home regimen including losartan, PRN hydralazine. #6. Hypothyroidism: We will continue patient on levothyroxine regimen. #7. Former tobacco usage: Encourage continued tobacco cessation. #8. Rheumatoid arthritis: Patient is on weekly methotrexate with folic acid supplementation, will continue folic acid supplementation. #9. DVT prophylaxis: Lovenox. Charges/Coding Visit Charges Inpatient E&M: 95826 Init Hosp L3 01/10/23 0619 <Electronically signed by Leyda Garcia MD> Cosigner Signature (if applicable): CC: Dr. Leyda Garcia MD; Dr. Eric Bravo, ~ Signed [facility] Work Phone: 1(337) 433-719506-21-2023 History of Present illness Narrative* Christopher Rose Jr., DO - 12/04/2022 10:15 AM EDT History of Present Illness Presence of Pain: denies pain/discomfort. Total time spent in this encounter was 50 minutes. All questions answered for the patient and . Patient is being evaluated for an unstable chronic illness that increase morbidity and mortality. Due to patient's coexisting health problems and co-morbidities treatment is and will be very difficult. Patient was referred by Dr. Bravo for RA. Patientstates that left knee is swollen and has been for awhile. Pain in left knee. States that hands are swelling has gone down but still puffy. States that medication she is taking once a week seems to behelping. DX with RA 11/2021. 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 started 05/2022. Never higher than 8 pills. Patient is gett ing blood work every 3-6 months. Review of Systems Constitutional: Positive for fatigue. Musculoskeletal: Positive for gait problem. Vitals: Blood pressure 112/74, temperature 97.9 F (36.6 C), temperature source Temporal, height 1.626 m (5' 4), weight 58.1 kg (128 lb). Physical Exam [...] Weakness present. Gait: Gait abnormal. Comments: Decreased proration clerk strength both hands and wheel chair. Psychiatric: Mood and Affect: Mood normal. Behavior: Behavior normal. Thought Content: Thought content normal. Judgment: Judgment normal. Neurological Exam Mental Status Alert. Oriented to person, place, and time. Cranial Nerves CN II: Vision test: Glasses OS exopthalmic. CN III, IV, : Extraocular movements intact bilaterally. Pupils equal round and reactive to light bilaterally. Gait Abnormal gait. Decreased proration clerk strength both hands and wheel chair. . Left Knee Exam Other Effusion: effusion present Assessment and Plan Encounter Diagnoses Name Primary? 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 HoldHumira if open wound can restart once wound [...] day supply on medication [facility] Author Francisco Bourgeois [facility] October 13, 2023 2:39pm Note Date/Time October 13, 2023 2:3 9pm [facility] Medical Records Department [address] [place] [address] Counseling Note - Pharmacy 10/13/23 1438 MR#: [id number] Acct: [id number] Name: DURAN DEVI Rep #:[id number] : 1950 73 From: Francisco Bourgeois PCP: Dr. Eric Bravo, DO Status:ADM IN Y Location: [facility] [id number] Pharmacy [facility] Service has performed discharge medication reconciliation and counseling for this patient. The patient's discharge medication list was reviewed for discrepancies and discrepancies were resolved. The patient was counseled on the following discharge medications and changes in medications for homegoing were reviewed. The Reason for Use, instructions for use, and potential side effects were reviewed for all new medications. The patient's questions regarding all of their medications were answered. 1. Levothyroxine 125 mcg PO daily 2. Metoprolol tartrate 25 mg PO BID 3. Prednisone 10 mg PO BID x 2 days, then 5 mg daily thereafter The patient was able to verbally demonstrate an understanding of their dischargemedications. Medications at Discharge Home Medications losartan 25 mg tablet 25 mg PO DAILY BLOOD PRESSURE 03/15/22 magnesium oxide 400 mg PO DAILY SUPPLEMENT 03/15/22 methotrexate sodium 2.5 mg tablet 12.5 mg PO QWEEK inflammation 03/15/22 sertraline 25 mg tablet 25 mg PO DAILY depression 01/10/23 acetaminophen 500 mg tablet 1,000 mg (2 x 500 mg) PO Q8 #0 tabs 02/12/23 folic acid 1 mg tablet 1 mg PO DAILY 10/08/23 insulin glargine 100 unit/mL (3 mL) subcutaneous pen (Lantus Solostar U-100 Insulin) 16 unit (0.16 mL) subcut DAILY #15 mL 10/13/23 insulin lispro 100 unit/mL subcutaneous pen (Humalog KwikPen (U-100) Insulin) 10unit (0.1 mL) subcut TID #15 mL 10/13/23 insulin lispro 100 unit/mL subcutaneous pen (Humalog KwikPen (U-100) Insulin) See Protocol subcut ACHS #0 mL 10/13/23 levothyroxine 125 mcg tablet 125 mcg PO DAILY@0600 30 days #30 tabs 10/13/23 metoprolol tartrate 25 mg tablet 25 mg PO BID 30 days #60 tabs 10/13/23 prednisone 10 mg tablet 10 mg PO DAILYCM 30 days #30 tabs 10/13/23 10/13/23 1439 <Electronically signed by Francisco clarke> Date _ Francisco Madsenignolimpia Signature (if applicable): Date CC: ~ Signed [facility] Work Phone: Discharge summary Author Kenneth Chin [facility] October 13, 2023 2:34pm Note Date/Time October 13, 2023 1:3 8pm [facility] Medical Records Department [address] [place] [address] Discharge Summary 10/13/23 1333 MR#: [id number] Acct: [id number] Name: DURAN DEVI Rep #:[id number] : 1950 73 From: Kenneth Arriola PCP: Dr. Eric Bravo DO Status:ADM IN Location: [place] [address]- [id number] Providers Date of Admission: 10/08/23 Date of Discharge: 10/13/23 Primary Care Physician: Dr. Eric Bravo DO Consultations 10/13/23 10:04 Consult: Onc/Wound/circuit tester Routine Comment: Reason for Consult:: pressure injury to coccyx Reason For Visit: CHERYLE Diagnosis Discharge Diagnosis (1) Encephalopathy: Status: Acute Code(s): G93.40 - Encephalopathy, unspecified (2) Adrenal insufficiency: Status: Acute Code(s): E27.40 - Unspecified adrenocortical insufficiency (3) Diarrhea: Status: Acute Code(s): R19.7 - Diarrhea, unspecified Plan 73-year-old female came to ED for generalized weakness confusion over last 1 week. As per the caregiver, her states her blood sugar have been difficult to control. Patient insulin was changed last week as per . Blood pressure was low 66/41 with tachycardia in ED and blood sugar in 400s. DKA with euglycemia/hypoglycemia with history of type 2 diabetes mellitus: Bicarb decreased from 18-9.0, anion gap 15-17. Hyponatremia possible due to hypoglycemia/DKA patient is dehydrated.. Lactic acid normal. Serum magnesium phosphorus and calcium are normal. Serum acetone negative.Glucose in BMP 202. Serum osmolality 295. ABG shows metabolic acidosis 7.38/22.6/86 suggestive of well compensated increased anion gap metabolic acidosis. Patient diagnosed withDKA with euglycemia/hypoglycemia. Usually seen with patient on SGLT2 inhibitor but patient is not as per home medications. DKA order set ordered but even before starting insulin drip glucose dropped to 26 given 1 D50. Discussed with nursing staff manage insulin drip discontinued. Accu-Cheks every 1 hour with hypoglycemia protocol. 10/09: DKA resolved. Anion gap x 2 closed.Insulin drip was never started as patient ran into hypoglycemia yesterday.A1c 12.2%. Random glucose 195, fasting 170. Accu-Chek before meals and at bedtime insulin coverage Humalog sliding scale. Scheduled insulin discontinued. Transferred to PCU 10/10: No acute change. Patient needs more physical therapy with debility, shortgait with swelling. Possible rehab 10/11: Hypoglycemia glucose went up yesterday. 257, 392, 266 in the morning 200:Schedule short-acting Humalog insulin ordered. 10/12: Blood sugars up 448 in a.m. mainly due to hydrocortisone oral. Hydrocortisone discontinued started on prednisone tapering dose 10 mg daily for 3 days and then home dose prednisone 5 mg daily to continue. Prescription of prednisone given. Patient has left basilar better diabetes mellitus. Was on high-dose of Lantus insulin and Humalog. Lantus and Humalog insulin changed as per the last dose in the hospital. Follow-up with PCP in [address] Ministerio Arias within the month. Acute encephalopathy * Suspected metabolic due to dehydration, diarrhea possible hypoglycemia and possibly component of adrenal insufficiency * Avoid potentiating medications * Treat the underlying processes 10/09: Patient looks fatigued slow but awake alert oriented x 3. I think she hasforgetfulness/amnesia and dementia. Acute encephalopathy resolved 10/12: Acute encephalopathy has resolved. It seems patient has mild forgetfulness/amnesia probably she has mild dementia. Adrenal insufficiency * Suspected as patient takes prednisone chronically * Patient did have hypotension when she initially presented but that is since resolved. * 50 mg of hydrocortisone 3 times daily as she seems to be improving. * 10/08: Continue home dose of hydrocortisone and she needs distress tolerance being in DKA. Once she is out of ICU, will need to change to prednisone and taper down gradually to her daily dose of 5 mg daily. * 10/10:Cortisol level is high. IV hydrocortisone changed to oral 20 mg and and 10 mg p.m. dose Hypotension possible due to DKA, and adrenal insufficiency * Due to dehydration and possibly adrenal insufficiency * BP 110/68 pulse rate 124. Sinus tachycardia * Hold losartan. 10/12: Hypotension has resolved. Blood pressure 117/83. Patient also sinus tachycardic yesterday therefore prescription was given for metoprolol 25 mg twice daily. Artery disease 96 point. Patient on losartan 25 mg daily, resumed Diarrhea * Unclear etiology * Stool for C. difficile enteric bacteriology panel are negative. Lactoferrin positive.Blood cultures x 2 and urine culture are pending. Chronic conditions * Rheumatoid arthritis: Hold off on methotrexate for now. Prednisone to be changed over to hydrocortisone for now. * Hypothyroidism: Continue with levothyroxine 150 mcg daily 10/08: TSH and free T4 ordered for tomorrow AM. VTE prophylaxis with enoxaparin CODE STATUS: Addressed with the patient. Patient wished to be full code. Total time of the visit including total time spent in counseling or coordinationof care, (more than 50% of the total time, spent in obtaining medical information from nurses and other ancillary care providers,explaining to the patient about labs, imaging, diagnosis and management of active complex medical conditions), coordination of care with nursing staff, respiratory therapist, review of labs and imaging is 40 minutes. Medications at Discharge Home Medications levothyroxine 150 mcg tablet 150 mcg PO DAILY THYROID 03/15/22 losartan 25 mg tablet 25 mg PO DAILY BLOOD PRESSURE 03/15/22 magnesium oxide 400 mg PO DAILY SUPPLEMENT 03/15/22 methotrexate sodium 2.5 mg tablet 12.5 mg PO QWEEK inflammation 03/15/22 sertraline 25 mg tablet 25 mg PO DAILY depression 01/10/23 acetaminophen 500 mg tablet 1,000 mg (2 x 500 mg) PO Q8 #0 tabs 02/12/23 folic acid 1 mg tablet 1 mg PO DAILY 10/08/23 insulin glargine 100 unit/mL (3 mL) subcutaneous pen (Lantus Solostar U-100 Insulin) 16 unit (0.16 mL) subcut DAILY #15 mL 10/13/23 insulin lispro 100 unit/mL subcutaneous pen (Humalog KwikPen (U-100) Insulin) 10unit (0.1 mL) subcut TID #15 mL 10/13/23 insulin lispro 100 unit/mL subcutaneous pen (Humalog KwikPen (U-100) Insulin) See Protocol subcut ACHS #0 mL 10/13/23 metoprolol tartrate 25 mg tablet 25 mg PO BID 30 days #60 tabs 10/13/23 prednisone 10 mg tablet 10 mg PO DAILYCM 30 days #30 tabs 10/13/23 Physical Exam Narrative Seen and examined. Patient walked with the physical therapy and does not meet criteria for SNF. Patient is also awake and communicative. Answers simple questions. General: Alert, awake oriented x3, Cooperative. Chronic fatigue. HEENT: Atraumatic, PERRLA, EOMI, Normocephalic Oral: No Gingival or Mucosal Lesions/ Ulcerations Neck: Supple, No JVD, Negative Carotid Bruits Chest wall/Lungs: Air entry diminished in bilateral lung bases. No crepitation/rhonchi Cardiovascular: Regular rate, Regular Rhythm, Normal S1, Normal S2, No M/G/R Abdomen: Bowel Sounds Present, Soft, Non Tender, Non-Distended : No dysuria. No renal angle tenderness. No suprapubic tenderness. Extremities: No edema, Capillary Refill Less than 3 Seconds Skin: No rashes, No breakdown Musculoskeletal: Gait instability. No Tenderness to Palpation of Joints or Extremities. Weakness of lower extremities, needs 2 people to assist to stand up Neurological: Cranial nerves II-XII grossly intact, DTR 2+/4. No acute focal neurological deficit. Psych/Mental Status: Flat affect, dementia, hard time to recall name of president. Does not remember the month of the year. Weight / BMI Weight Weight: 131 lb 6.328 oz Body Mass Index (BMI) 22.5 ABG / Lab / Microbiology Data 10/11/23 06:35 10/13/23 06:37 Laboratory: Laboratory Results - last 24 hr 10/12/23 16:40: POC Glucose 288 H 10/12/23 21:14: POC Glucose 150 H 10/13/23 06:37: Sodium 131 L, Potassium 4.9, Chloride 102, Carbon Dioxide 19.0 L, Anion Gap 10, BUN 18, Creatinine 0.62, Estim Creat Clear Calc 55.70, Est GFR (MDRD) Af Amer 123, Est GFR (MDRD) Non-Af 102, BUN/Creatinine Ratio 29.3 H, Glucose 446 H, Calcium 8.7 10/13/23 07:35: POC Glucose 448 H 10/13/23 10:59: POC Glucose 265 H 10/13/23 13:03: POC Glucose 186 H Microbiology: Microbiology 10/08/23 12:25 Blood Culture (Wb) - Anticubital Right Blood Culture - Final No growth in 5 days. 10/08/23 11:50 Blood Culture (Wb) - Anticubital Left Blood Culture - Final No growth in 5 days. 10/08/23 12:45 Urine Catheter - Catheter Urine Culture - Final Klebsiella pneumoniae sp pneum Escherichia coli 10/08/23 16:30 Stool Stool Lactoferrin - Final 10/08/23 16:30 Stool Enteric Bacteriology - Final 10/08/23 16:30 Stool Clostridioides difficile (PCR) - Final D/C Instructions Discharge Diet: 1800 Calorie Control Diet Weight Bearing Status: Weight bearing as tolerated Call your doctor if you observe: Fever of 101 or Higher, Coldness, Increased Pain, Numbness or Tingling, Change in Color, Inability to urinate, Inability to have a bowel movement, Using more than 1 pad per hour, Shortness of breath, Dizziness, Fainting spells, Swelling in the ankles, Chest pain, Prolonged hiccupping, Increased palpitations (irregular heartbeat) and Calf discomfort When: IN 2 WEEKS Meaningful Use Info Meaningful Use Meaningful Use Diagnoses (Choose all that apply): None applicable Ischemic Stroke Statin Dosing Therapy Reference: STATIN DOSE THERAPY REFERENCE: * Patients > 75 years receive moderate or high dose statin therapy. * Patients 75 years or YOUNGER should receive HIGH intensity statin dose unless contraindicated. You will be required to document reason for non-treatment if statin daily dose does not meet guidelines. HIGH DOSE STATIN THERAPY DAILY Atorvastatin > than or = to 40 mg Rosuvastatin > than or = to 20 mg Amlodipine + Atorvastatin > than or = to 2.5/40 mg Ezetimibe + Simvastatin 10/80 mg Simvastatin 80mg Discharge Plan Admission Admit Date/Time: 10/08/23 16:48 Primary Reason for Your Visit: DKA, confusion and encephalopathy Attending Provider: Kenneth Chin Primary Care Provider: Eric Bravo Consulting Providers: Eduardo Hicks Discharge Orders/Prescriptions Prescriptions: New prednisone 10 mg Tablet 10 mg PO DAILYCM 30 Days Qty: 30 0RF Rx Instructions: Prednisone 10 mg daily for 2 days till 10/15/2023 then 5 mg daily to continue metoprolol tartrate 25 mg Tablet 25 mg PO BID 30 Days Qty: 60 0RF insulin lispro [Humalog KwikPen Insulin] 100 unit/mL Insulin Pen See Protocol subcut ACHS Qty: 0 0RF Protocol: 3. Sliding Scale Insulin Med Dosing Condition: 150-189 mg/dl = 1 unit Condition: 190-229 mg/dl = 2 units Condition: 230-269 mg/dl = 3 units Condition: 270-309 mg/dl = 4 units Condition: 310-349 mg/dl = 5 units Condition: 350-399 mg/dl = 6 units Condition: 400-449 mg/dl = 7 units Condition: Greater than 449 call physician Protocol Text: - Use for Total Daily Dose of Insulin 37-55 units - Obsese, infected, or steroid patients MEDIUM DOSING ALGORITHIM Continued methotrexate sodium 2.5 mg tablet 12.5 mg PO QWEEK Patient Comments: TAKE 5 (FIVE) tablets BY MOUTH per week losartan 25 mg tablet 25 mg PO DAILY levothyroxine 150 MCG tablet 150 mcg PO DAILY magnesium oxide 400 mg magnesium tablet 400 mg PO DAILY sertraline 25 mg tablet 25 mg PO DAILY Patient Comments: HASNT GOTTEN FILLED SINCE MARCH acetaminophen 500 mg Tablet 1,000 mg PO Q8 Qty: 0 0RF folic acid 1 mg tablet 1 mg PO DAILY Changed insulin lispro [Humalog KwikPen Insulin] 100 unit/mL insulin pen 10 unit subcut TID Qty: 15 0RF Rx Instructions: Hold if glucose less than 130 mg/dl insulin glargine [Lantus Solostar U-100 Insulin] 100 unit/mL (3 mL) insulin pen 16 unit subcut DAILY Qty: 15 0RF Discontinued prednisone 5 mg tablet 5 mg PO DAILY Patient Comments: TAKE 1 TABLET BY MOUTH EVERY MORNING Levemir FlexPen 100 unit/mL (3 mL) insulin pen 38 unit subcut QHS Referrals / Follow Up: Eric Bravo DO [Primary Care Provider] - Within 1 Week (For labile diabetes mellitus with fluctuating blood sugar.) Ministerio Arias MD [Med Staff - Courtesy Staff] - Within 1 Month (For labile/brittle diabetes mellitus. Also on prednisone 5 mg daily.) Disposition Disposition (needs filled in before D/C Order can be placed): Home Health Service Charges/Coding Visit Charges Inpatient E&M: 93860 Disch Hosp >30min 10/13/23 1338 <Electronically signed by Kenneth Chin MD> Cosigner Signature (if applicable): CC: Dr. Eric Bravo DO; Dr. Kenneth Chin MD~ Signed ADDENDUM by Dr. Kenneth Chin MD on 10/13/23 at 1434 Addendum Levothyroxine dose was changed to 125 mcg daily. New prescription sent to the [facility] retail pharmacy. 10/13/23 1434<Electronically signed by Kenneth Chin MD> Cosigner Signature (if applicable): cc: Dr. Eric Bravo DO; Dr. Kenneth Chin MD ~* Signed [facility] Work Phone: Discharge summary Author Dima Smith [facility] Note Date/Time January 04, 2025 8:44 am [facility] Medical Records Department [address] [place] [id number] Emergency Department Summary 01/04/25 MR#: [id number] Acct: [id number] Name: DURAN DEVI Rep #:[id number] : 1950 74 From: Dima Smith MD PCP: Dr. Eric Bravo DO Status:REG ER Location: ED HPI History of Present Illness Chief Complaint: Weakness Detail of Chief Complaint: Weakness for some time per paramedics. Patient is disoriented and not a re Informant: EMS Onset/Context/Timing Onset: - (Per paramedics she has been weak and not felt well for some time. has an appointment and will be here after his appointment) Context: - (Unknown, presumed gradual) Timing: - (Unknown) Quality: Generalized weakness Location: Not applicable Current Severity: Unknown Maximum Severity: Unknown Worsened by: Per squad blood sugar was 565. Patient not recall last time she checked BS Relieved by: Nothing Associated Symptoms Associated Symptoms: Polyuria, polydipsia, weakness, shortness of breath Narrative Narrative: Patient is 74-year-old woman with multiple medical problems which includes type 1 diabetes, hypertension, debility, rheumatoid arthritis on methotrexate, chronic atrial fibrillation and history of SVT per EMS who presents because of generalized weakness. She is not a good informant. She is disoriented to time. Will need to review prior records determine if this is a new finding or not. Patient endorses shortness of breath, probably urea and polydipsia. She presently endorses thirst and dry mouth. She does endorse shortness of breath. She denies chest discomfort of any type. She denies urologic symptoms other than possibly frequency. She specifically denied nocturia. Squad commented that her lungs were clear to auscultation. They gave her a 500 cc bolus because of the elevated blood sugar. Prior similar symptoms: Yes Recent Illness/Hospitalization: No [facility] Medical History SVT (supraventricular tachycardia) Palpitations Vitamin D deficiency Statin intolerance Atrial fibrillation Thrombocytopenia Left lower lobe pneumonia Hypokalemia CHERYLE (acute kidney injury) Osteoporosis Debility Inability to walk Chronic anemia Rheumatoid arthritis Hypothyroidism HTN (hypertension) Home Medications ?Medication ?Instructions ?Recorded ?Last Taken ?Type methotrexate sodium 2.5 mg tablet 12.5 mg PO QWEEK inf lammation 03/15/22 04/10/24 History folic acid 1 mg tablet 1 mg PO DAILY 10/08/2304/12 History acetaminophen 500 mg tablet 1,000 mg PO Q8 PRN fever o r pain 04/12/24 Unknown History 1-10 levothyroxine 150 mcg tablet 150 mcg PO DAILY 04/12/24 04/12/24 History leucovorin calcium 5 mg tablet 5 mg PO QWEEK 09/29/24 Unknown History prednisone 5 mg tablet 4 mg PO QDAY 09/29/24 Unknow n History insulin lispro 100 unit/mL 15 unit (0.15 mL) subcut TI D #15 mL 11/19/24 Unknown Rx subcutaneous pen (Humalog KwikPen (U-100) Insulin) cholecalciferol (vitamin D3) 125 125 mcg PO QDAY 11/24 Unknown History mcg (5,000 unit) capsule multivitamin with minerals-folic 1 tab PO ONCE 5 Unknown History acid 80 mcg chewable tablet (Centrum Adult 50 Plus) insulin glargine 100 unit/mL (3 16 unit subcut QDAY Unknown History mL) subcutaneous pen (Lantus Solostar U-100 Insulin) Allergy/AdvReac Type Severity Reaction Status Date / Time rosuvastatin Allergy Intermediate Illness Verified 01/04/25 07:29 lisinopril AdvReac Intermediate Cough Verified 01/04/25 07:29 egg (eggs) AdvReac Vomiting Verified 01/04/25 07:29 Family History Mother Diabetes Heart disease Father Diabetes Cancer Throat cancer Surgical History s/p right shoulder surgery H/O: Social History household members: spouse Smoking Status: Former smoker alcohol intake: never substance use type: does not use ROS ROS ED Respiratory/Chest Respiratory/Chest: Reports dyspnea Gastrointestinal Gastrointestinal: Reports nausea and other Details: She received Zofran by squadbecause of nausea. They report her nausea is better. Neurologic Neurologic: Reports weakness Endocrine Endocrinology: Reports polydipsia and polyuria EXAM Physical Exam Const Vital Signs: 01/04/25 07:27 01/04/25 07:29 01/04/25 07:30 Temperature 97.2 F L 97.5 F L Temperature Source Temporal Temporal Pulse Rate 146 H 145 H Respiratory Rate 22 H 22 H Respiratory Effort Short of Breath Blood Pressure 98/72 102/65 Blood Pressure Mean 80 77 Pulse Ox 97 99 Oxygen Delivery Method Room Air Room Air 01/04/25 08:32 Temperature 97.1 F L Temperature Source Temporal Pulse Rate 149 H Respiratory Rate 24 H Respiratory Effort Blood Pressure 104/60 Blood Pressure Mean 74 Pulse Ox 100 Oxygen Delivery Method Room Air Positive well developed and unkempt General Appearance ED: unkempt, well developed and other Blood pressure is low for patient when comparing to visit earlier this year, August 08. Note was authored by Dr. Demarcus Álvarez ; Negative for cyanotic, diaphoretic, NAD or pallor HEENT Reports dry mucous membranes HEENT Narrative: Head is atraumatic and normocephalic. Ears are normal. Posterior pharynx without erythema or exudate. Uvula is midline. Mouth ED: Yes dry mucous membranes Mouth: dry mucous membranes Eyes PERRL and EOMs intact bilaterally Eyes Narrative: Conjunctive is slightly pink. General Eye ED: Negative for scleral icterus Neck no lymphadenopathy, supple and no JVD Neck Narrative: Trachea is midline. There is no stridor. Chest Wall inspection of chest normal and palpation of chest normal Resp No normal respiratory effort and No clear to auscultation bilaterally Resp Narrative: There is minimal use of accessory muscles. Patient is breathing quicker than 23times a minute. She has bibasilar rales noted. Breath sounds are symmetric. Cardio no murmurs Rate: tachycardic Rhythm: abnormal rhythm irregularly irregular GI normal to inspection, nondistended, normoactive bowel sounds, non-tender, non-distended and no masses; Negative for hepatosplenomegaly Back/Spine no CVA tenderness Extremity General Extremety ED: Negative for tenderness or other findings General Extremity: Negative for other findings Neuro No oriented x3, CN's II-XII intact bilaterally and no sensory deficits noted Sensorium / Orientation: orientation impaired; Negative for alert Psych Appearance: unkempt Mood & Affect: depressed Skin no rashes or lesions noted, no wounds and No skin turgor normal General Skin Exam: Negative for jaundice or pallor MDM MDM MDM Narrative Medical decision making narrative: Prehospital EKG reveals atrial fibs with RVR. With her now having bibasilar rales no additional fluid was given because of concern for CHF since paramedics reported clear lungs. This may also represent pneumonia. Her blood sugar is elevated. With her being tachypneic and has ketotic odor to her breath concern she is in DKA. DKA order set was initiated. As previously noted fluids were not administered because of concern for CHF. Haney was placed for accurate I's and O's and to obtain UA which she is not capable of giving. Need to determine if her mental status is acute or not and if this is metabolic versus infectious. She has a history of type 1 diabetes that is poorly controlled. The atrial fibrillation is new since August 08, 2024. Since she is on levothyroxine we will obtain a TSH. Also need to evaluate for cardiac ischemia. Since onset is unknown she is not a candidate for cardioversion. Since she is on metoprolol will administer IV metoprolol for rate control. History & Record Review Additional record(s) reviewed:: Prior outpatient record (Outpatient office visitwith endocrinology, nurse practitioner Erin Landis's note was reviewed. Chief complaint was follow-up for diabetes. was present. Assessment was type 1 diabetes with hyperglycemia chronic and uncontrolled. Goal is A1c ofless than 7.5. There is not been achieve), Prior ED visit (Patient was seen by Dr. Demarcus Hardy on August 08, 2024 for palpitations. Patient was diagnosed with supraventricular tachycardia at that time. Per that document she also has a history of cardioversion and paroxysmal atrial fibrillation. Per that record she was on Eliquis. Eliquis is not listed as) and Prior labs Lab Data Attestation: I reviewed the patient's lab results. Lab results narrative: White count is elevated at 28.6 thousand with shift. There is no bandemia. H&His unremarkable. This may be a stress response versus infection. Will obtain aprocalcitonin level to help potentially differentiate. Urinalysis reveals psoasgravity of 1.020 with proteinuria, glucosuria and ketones. Negative nitrites positive leukoesterase. Micro is remarkable for 5-10 WBCs. There is no bacteria. [id number] glucose is greater than 500. Suspect patient is in DKA. After her liter infusion she will have received approximately 30 cc/kg. Will start on insulin drip once ABG results are available. Patient has evidence of pseudo hyponatremia. CO2 is 3. Anion gap is 32. BUN and creatinine are 35 and 1.24 respectively with an estimated GFR 46. Glucose is 552. First troponin is elevated at 20. Serial enzymes were ordered. Labs: Laboratory Results - last 24 hr 01/04/25 01/04/25 01/04/25 07:33 07:37 07:58 WBC 28.6 H RBC 4.20 Hgb 12.4 Hct 40.6 MCV 96.7 MCH 29.5 MCHC 30.5 L RDW Std Deviation 50.8 H RDW Coeff of Mateus 14.6 Plt Count 285 MPV 12.3 H Immature Gran % (Auto) 1.000 H Neut % (Auto) 92.2 H Lymph % (Auto) 4.2 L Hood % (Auto) 2.3 Eos % (Auto) 0.0 Baso % (Auto) 0.3 Absolute Neuts (auto) 26.3 H Absolute Lymphs (auto) 1.21 Nucleated RBC % 0 Differential Comment SCANNED Sodium 129 L Potassium 5.2 H Chloride 94 L Carbon Dioxide 3.0 L* Anion Gap 32 H BUN 35 H Creatinine 1.24 H Estim Creat Clear Calc 35.41 L Est GFR (MDRD) Non-Af 46 L BUN/Creatinine Ratio 28.5 H Glucose 552 H* Calcium 9.3 Troponin T High Sens 20 H b-Hydroxybutyric mmol/L 9.0 H Urine Color Yellow Urine Clarity Sl. Cloudy Urine pH 6.0 Ur Specific [place]worth 1.020 Urine Protein 30 H Urine Glucose (UA) 1000 H Urine Ketones 150 A* Urine Occult Blood Negative Urine Nitrite Negative Urine Bilirubin Negative Urine Urobilinogen Normal Ur Leukocyte Esterase 500 H Urine RBC 0 SEEN Urine WBC 5-10 SEEN Ur Squamous Epith Cells 0 SEEN Urine Bacteria 0 SEEN Urine Mucus 0 SEEN POC Glucose > 500 H* ABG Data Attestation: I personally reviewed and interpreted this ABG as follows: Interpretation: ABG reveals a metabolic acidosis. pH is 7.14, bicarb 5.1, total CO2 6, base excess -24, PCO2 14.8, PO2 132. ABG results: ABG 01/04/25 08:18 Specimen Type ART Sample Site R Brach pH 7.14 L* Bicarbonate Actual 5.1 L Total CO2 6 Base Excess -24 L O2 Saturation 98 ABG pCO2 14.8 L* ABG pO2 132 H Driss Test Positive O2 Delivery Device Room Air Vent Mode Not entered Crit Call To/Read Back Yes Blood Gas Notified Whom smith Blood Gas Notified Time 08:19:45 Radiography Chest X-Ray - ED: 1 View, Read by ED Physician (Slightly lordotic rotated view. There is a single portable view April 12 uses comparison. There is a difference in penetration. There is chronic parenchymal changes. There is no effusion or obvious infiltrate. There is no pneumothorax. Osseous structures are no acute process.) and Unchanged Diagnostic Testing: Clinical Impression(s) from Imaging Studies Chest X-Ray 01/04/25 07:28 IMPRESSION: There diffuse increased interstitial markings, likely a component of fibrosis, similar to the prior. [facility] Initial EKG: Attestation: I personally reviewed and interpreted this EKG as follows: Interpretation: Atrial Fibrillation (Rate is 160. Patient is nonseptic ST-T wave changes which may be rate dependent. QRS duration 78 ms. QT durationis 276 ms. [place] is to the right. Prior EKG performed August 08, 2024 revealsa sinus rhythm.) Management Discussion w/another healthcare provider: Hospitalist (Case was discussed with Dr. Eric De Los Santos. Admission ICU) Treatment and Re-Evaluation :: Since there is no evidence of heart failure on the chest x-ray will administer 1L of normal saline wide open. This is equivalent to approximately 20 cc/kg. Blood cultures obtained since her white count is markedly elevated. Will await urine results since the urine. Clear and not turbid to suggest source of infection. This also may be a stress response. After results of ABG were reviewed patient was started on insulin drip. Secondary was asked to call hospitalist at 0832 for admission to ICU Critical Care Time Critical Care Time: Yes Critical care time (excluding procedures): 30-74 minutes (33), Including time spent: (History, physical, documentation, independent of potation of the laboratory results, chest x-ray treatment for A-fib RVR, treatment for DKA treatment for an cephalopathy), Discussing w/Consultants and Arranging Admissionor Transfer Discharge Plan Dx/Rx/DC Orders Clinical Impression: Diabetic ketoacidosis associated with type 1 diabetes mellitus, Hypothyroidism,Rheumatoid arthritis, Acute metabolic encephalopathy, Atrial fibrillation with rapid ventricular response, Acute renal insufficiency, Acute prerenal azotemia, Acute hypotension Disposition Disposition: Acute Care Hospital [facility] What to do if you have Problems For any increased pain, shortness of breath, bleeding, nausea or vomiting, chestpain, or any unexpected problems, contact your Primary Care Provider. Call [facility] ([phone]) or report to the closest Emergency Room. Call 911 if necessary. 01/04/25 0844 <Electronically signed by Dima Smith MD> Cosigner Signature (if applicable): CC: Dr. Eric Bravo, DO ~ Signed [facility] Work Phone: Discharge summary Author Eric De Los Santos [facility] Note Date/Time January 05, 2025 3:[address] [facility] Medical Records Department [address] [place] [id number] Instructions for Home/Discharge Instructions 01/05/25 1522 MR#: [id number] Acct: [id number] Name: DURAN DEVI Rep #:[id number] : 1950 74 From: Eric De Los Santos DO PCP: Dr. Eric Bravo DO Status:ADM IN Discharge Instructions DC O2, CPAP, BIPAP needs Home O2 Discharge instructions: No Dressing / Incision Discharge Activity: Return to Normal Activity Weight Bearing Status: Weight bearing as tolerated (Use walker if necessary) Follow Up Care Test Results: Test results from this visit will be discussed in further detail at your follow- up appointment, if applicable. Discharge Plan Admission Admit Date/Time: 01/04/25 08:51 Primary Reason for Your Visit: DKA, uncontrolled type 2 diabetes Attending Provider: Eric De Los Santos Primary Care Provider: Eric Bravo Discharge Orders/Prescriptions Prescriptions: Continued leucovorin calcium 5 mg tablet 5 mg PO QWEEK prednisone 5 mg tablet 4 mg PO QDAY cholecalciferol (vitamin D3) 125 mcg (5,000 unit) capsule 125 mcg PO QDAY Centrum Adult 50 Plus 80 mcg tablet,chewable 1 tab PO ONCE methotrexate sodium 2.5 mg tablet 12.5 mg PO QWEEK Patient Comments: TAKE 5 (FIVE) tablets BY MOUTH per week folic acid 1 mg tablet 1 mg PO DAILY Eliquis 5 mg tablet 5 mg PO BID levothyroxine 150 mcg tablet 150 mcg PO DAILY acetaminophen 500 mg Tablet 1,000 mg PO Q8 PRN (Reason: fever or pain 1-10) Changed insulin lispro [Humalog KwikPen Insulin] 100 unit/mL insulin pen 10 unit subcut TID Qty: 15 6RF insulin glargine [Lantus Solostar U-100 Insulin] 100 unit/mL (3 mL) insulin pen 15 unit subcut 2XD Qty: 1 0RF Referrals / Follow Up: Eric Bravo DO [Primary Care Provider] - In 1 Week Disposition Disposition (needs filled in before D/C Order can be placed): Home, Self Care 01/05/25 1526<Electronically signed by Eric De Los Santos DO>Eric De Los Santos DO CC: Dr. Eric Bravo DO ~ Signed [facility] Work Phone: Evaluation note* Diagnosis Onset Date Resolution Status Effusion, left knee acute Left knee pain acute Osteoarthritis of left knee acute [facility] Work Phone: Evaluation note* Diagnosis Onset Date Resolution Status Effusion, left knee acute Left knee pain acute Osteoarthritis of left knee acute DKA (diabetic ketoacidosis) acute Elevated TSH acute New onset a-fib acute [facility] Work Phone: Evaluation note* Diagnosis Onset Date Resolution Status DKA (diabetic ketoacidosis) resolved New onset a-fib resolved [facility] Work Phone: Evaluation note* Diagnosis Onset Date Resolution Status DKA (diabetic ketoacidosis) resolved New onset a-fib resolved Diabetic ketoacidosis acute Tachycardia acute Urinary tract infection acut e [facility] Work Phone: Evaluation note* Diagnosis Onset Date Resolution Status Diabetic ketoacidosis resolv ed [facility] Work Phone: Evaluation noteNo assessment information available [facility] Work Phone: Evaluation note* Diagnosis Rheumatoid arthritis involving multiple sites with positive rheumatoid factor- Primary Adalimumab (Humira) long-term use Alkaline phosphatase elevation Other nonspecific abnormal serum enzyme levels CRP elevated Elevated C-reactive protein (CRP) Fatigue, unspecified type 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 Personal history of arthritis FPC current use of systemic steroids Encounter for long-term (current) use of steroids Long-term use of high-risk medication 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, senior living, current use Encounter for long-term (current) use [...] other viral diseases [facility] Diagnosis Onset Date Resolution Status Accidental fall acute Closed fracture of left proximal humerus acute Fracture of left inferior pubic ramus acute Hypokalemia acute Inability to walk acute [facility] Work Phone: Evaluation note* Diagnosis Onset Date Resolution Status Closed fracture of left proximal humerus acute Fracture of left inferior pubic ramus acute Inability to walk acute Accidental fall resolved Hypokalemia resolved Closed fracture of left proximal humerus acute Debility acute Diabetes mellitus acute Fracture of left inferior pubic ramus acute Hypothyroidism acute Pain in left toe(s) acute Pain in right toe(s) acute Rheumatoid arthritis acute Tinea unguium acute Chronic anemia chronic HTN (hypertension) chronic Venous insufficiency (chronic) (peripheral) chronic Closed fracture of left proximal humerus acute Fracture of left inferior pubic ramus acute [facility] Work Phone: Evaluation note* Diagnosis Onset Date Resolution Status Closed fracture of left proximal humerus acute Fracture of left inferior pubic ramus acute Inability to walk acute Accidental fall resolved Hypokalemia resolved Closed fracture of left proximal humerus acute Debility acute Diabetes mellitus acute Fracture of left inferior pubic ramus acute Hypothyroidism acute Rheumatoid arthritis acute Chronic anemia chronic HTN (hypertension) chronic Pain in left toe(s) resolved Pain in right toe(s) resolve d Tinea unguium resolved Venous insufficiency (chronic) (peripheral) resolved Closed fracture of left proximal humerus acute Fracture of left inferior pubic ramus acute [facility] Work Phone: Evaluation note* Diagnosis Rheumatoid arthritis involving multiple sites with positive rheumatoid factor- Primary Abnormal ANCA test Other and unspecified nonspecific immunological findings Adalimumab (Humira) long-term use Alkaline phosphatase elevation Other nonspecific abnormal serum enzyme levels CRP elevated Elevated C-reactive protein (CRP) Elevated TSH Other abnormal blood chemistry 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 Personal history of arthritis 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 Other specified diseases of blood and blood-forming organs FPC current use of systemic steroids Encounter for [...] anemia Anemia, unspecified [facility] Diagnosis Rheumatoid arthritis involving multiple sites with positive rheumatoid factor- Primary Rheumatoid factor positive Other and unspecified nonspecific immunological findings 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, senior living, current use Encounter for long-term (current) use [...] thumbs [facility] Rheumatoid arthritis involving multiple sites with positive rheumatoid factor- Primary [facility] Diagnosis Onset Date Resolution Status Acidosis, lactic acute Adrenal insufficiency acute CHERYLE (acute kidney injury) ac [place] Dehydration acute Diarrhea acute Elevated troponin acute Encephalopathy acute Hypokalemia acute Leukocytosis acute [facility] Work Phone: Evaluation note* Diagnosis Rheumatoid arthritis involving multiple sites with positive rheumatoid factor- Primary Abnormal ANCA test Other and unspecified nonspecific immunological findings CRP elevated Elevated C-reactive protein (CRP) H/O total shoulder replacement, right 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 Encounter [...] of both wrists [facility] Diagnosis Rheumatoid arthritis involving multiple sites with positive rheumatoid factor- Primary [facility] Diagnosis Rheumatoid arthritis involving multiple sites with positive rheumatoid factor- Primary [facility] Diagnosis Rheumatoid arthritis involving multiple sites with positive rheumatoid factor- Primary [facility] Diagnosis Rheumatoid arthritis involving multiple sites with positive rheumatoid factor- Primary Abnormal ANCA test Other and unspecified nonspecific immunological findings CRP elevated Elevated C-reactive protein (CRP) H/O total shoulder replacement, right 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 Encounter [...] both hands Primary osteoarthritis of both wrists Infliximab (Remicade) long-term use Alkaline phosphatase elevation Other nonspecific abnormal serum enzyme levels Elevated TSH Other abnormal blood chemistry 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 Other specified diseases of blood and blood-forming organs Vitamin D deficiency Unspecified vitamin D deficiency Hypothyroidism, unspecified type Fatigue, unspecified type Hypoalbuminemia Other disorders of plasma protein metabolism [facility] Diagnosis Rheumatoid arthritis involving multiple sites with positive rheumatoid factor- Primary [facility] Diagnosis Rheumatoid arthritis involving multiple sites with positive rheumatoid factor- Primary [facility] Diagnosis Rheumatoid arthritis involving multiple sites with positive rheumatoid factor- Primary [facility] Diagnosis Rheumatoid arthritis involving multiple sites with positive rheumatoid factor- Primary Visit for monitoring Actemra therapy Encounter for therapeutic drug monitoring Rheumatoid factor positive Other and unspecified nonspecific immunological findings 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, long term 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, current use Encounter for long-term (current) use of other medications Long-term use of high-risk medication 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 Encounter for long-term (current) use of steroids 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 Personal history of arthritis H/O total shoulder replacement, right CRP elevated Elevated C-reactive protein (CRP) Abnormal ANCA test Other and unspecified nonspecific immunological findings Primary osteoarthritis of both wrists Primary osteoarthritis of both hands Osteoarthritis of carpometacarpal (CMC) joint of both thumbs [facility] Diagnosis Rheumatoid arthritis involving multiple sites with positive rheumatoid factor- Primary [facility] Diagnosis Rheumatoid arthritis involving multiple sites with positive rheumatoid factor- Primary Visit for monitoring Actemra therapy Encounter for therapeutic drug monitoring Rheumatoid factor positive Other and unspecified nonspecific immunological findings 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, senior living, current use Encounter for long-term (current) use of other medications Long-term use of high-risk medication 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 Encounter for long-term (current) use of steroids 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 Personal history of arthritis H/O total shoulder replacement, right CRP elevated Elevated C-reactive protein (CRP) Abnormal ANCA test Other and unspecified nonspecific immunological findings Primary osteoarthritis of both wrists Primary osteoarthritis of both hands Osteoarthritis of carpometacarpal (CMC) joint of both thumbs [facility] Diagnosis Rheumatoid arthritis involving multiple sites with positive rheumatoid factor- Primary 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, senior living, current use Encounter for long-term (current) use of other medications Long-term use of high-risk medication 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 Personal history of arthritis Hyponatremia Hyposmolality and/or hyponatremia Rheumatoid factor positive Other and unspecified nonspecific immunological findings [facility] current use of systemic steroids Encounter for long-term (current) use of steroids Abnormal ANCA test Other and unspecified nonspecific immunological findings H/O total shoulder replacement, right Visit for monitoring Actemra therapy Encounter for therapeutic drug monitoring Primary osteoarthritis of both hands Osteoarthritis of carpometacarpal (CMC) joint of both thumbs Primary osteoarthritis of both wrists [facility] Diagnosis Rheumatoid arthritis involving multiple sites with positive rheumatoid factor- Primary [facility] Diagnosis Rheumatoid arthritis involving multiple sites with positive rheumatoid factor- Primary [facility] ([facility] Consultation (Routine) - New Request Specialty Diagnoses / Procedures Referred By Antoinette t Referred To Contact Chemotherapy Diagnoses Rheumatoid arthritis [...] of carpometacarpal (CMC) joint of both thumbs Christopher Rose Jr., DO [address] [place] [id number] [address] Referral ID Status Reason Start Date Expiration Date V isits Requested Visits Authorized [id number] New Request 09/12/2023 10/06/2024 1 1 [facility]No reason for referral information [facility] Work Phone: Chief Complaint and Reason for Visit Chief Complaint Left knee Reason for Visit Effusion, left knee Left knee pain Osteoarthritis of left knee Chief Complaint Left knee DKA DKA DKA DKA DKA DKA DKA Reason for Visit Effusion, left knee Left knee pain Osteoarthritis of left knee DKA (diabetic ketoacidosis) Elevated TSH New onset a-fib Chief Complaint DKA DKA DKA DKA DKA DKA DKA DKA Reason for Visit DKA (diabetic ketoac idosis) New onset a-fib Chief Complaint DKA DKA DKA DKA DKA DKA DKA DKA DKA DKA DKA Reason for Visit DKA (diabetic ketoac idosis) New onset a-fib Diabetic ketoacidosis Tachycardia Urinary tract infection Chief Complaint DKA DKA DKA DKA Reason for Visit Diabetic ketoacidosi s Chief Complaint DKA DKA DKA DKA LOCALIZED EDEMA Reason for Visit Diabetic ketoacidosi s Chief Complaint WRIST AND HAND PAIN BILATERAL Chief Complaint WRIST AND HAND PAIN BILATERAL CRACKLES- Orthopnea Chief Complaint WRIST AND HAND PAIN BILATERAL CRACKLES- Orthopnea Fall FALL, HUMERAL FX, POSSIBLE HIP FX FALL, HUMERAL FX, POSSIBLE HIP FX FALL, HUMERAL FX, POSSIBLE HIP FX FALL, HUMERAL FX, POSSIBLE HIP FX FALL, HUMERAL FX, POSSIBLE HIP FX Reason for Visit Accidental fall Closed fracture of left proximal humerus Fracture of left inferior pubic ramus Hypokalemia Inability to walk Chief Complaint WRIST AND HAND PAIN BILATERAL CRACKLES- Orthopnea Fall FALL, HUMERAL FX, POSSIBLE HIP FX FALL, HUMERAL FX, POSSIBLE HIP FX FALL, HUMERAL FX, POSSIBLE HIP FX FALL, HUMERAL FX, POSSIBLE HIP FX FALL, HUMERAL FX, POSSIBLE HIP FX HUMERAL FRACTURE AND PUBIC RAMI FRACTURE HIP Room 3 SWELLING Reason for Visit Closed fracture of l eft proximal humerus Fracture of left inferior pubic ramus Inability to walk Accidental fall Hypokalemia Closed fracture of left proximal humerus Debility Diabetes mellitus Fracture of left inferior pubic ramus Hypothyroidism Pain in left toe(s) Pain in right toe(s) Rheumatoid arthritis Tinea unguium Chronic anemia HTN (hypertension) Venous insufficiency (chronic) (peripheral) Closed fracture of left proximal humerus Fracture of left inferior pubic ramus Chief Complaint CRACKLES- Orthopnea Fall FALL, HUMERAL FX, POSSIBLE HIP FX FALL, HUMERAL FX, POSSIBLE HIP FX FALL, HUMERAL FX, POSSIBLE HIP FX FALL, HUMERAL FX, POSSIBLE HIP FX FALL, HUMERAL FX, POSSIBLE HIP FX HUMERAL FRACTURE AND PUBIC RAMI FRACTURE HIP Room 3 SWELLING ORTHOPNEA, EDEMA Reason for Visit Closed fracture of l eft proximal humerus Fracture of left inferior pubic ramus Inability to walk Accidental fall Hypokalemia Closed fracture of left proximal humerus Debility Diabetes mellitus Fracture of left inferior pubic ramus Hypothyroidism Rheumatoid arthritis Chronic anemia HTN (hypertension) Pain in left toe(s) Pain in right toe(s) Tinea unguium Venous insufficiency (chronic) (peripheral) Closed fracture of left proximal humerus Fracture of left inferior pubic ramus Chief Complaint Fall FALL, HUMERAL FX, POSSIBLE HIP FX FALL, HUMERAL FX, POSSIBLE HIP FX FALL, HUMERAL FX, POSSIBLE HIP FX FALL, HUMERAL FX, POSSIBLE HIP FX FALL, HUMERAL FX, POSSIBLE HIP FX HUMERAL FRACTURE AND PUBIC RAMI FRACTURE HIP Room 3 SWELLING ORTHOPNEA, EDEMA NEED ORDER Reason for Visit Closed fracture of l eft proximal humerus Fracture of left inferior pubic ramus Inability to walk Accidental fall Hypokalemia Closed fracture of left proximal humerus Debility Diabetes mellitus Fracture of left inferior pubic ramus Hypothyroidism Rheumatoid arthritis Chronic anemia HTN (hypertension) Pain in left toe(s) Pain in right toe(s) Tinea unguium Venous insufficiency (chronic) (peripheral) Closed fracture of left proximal humerus Fracture of left inferior pubic ramus Chief Complaint ORTHOPNEA, EDEMA NEED ORDER Chief Complaint CHERYLE CHERYLE Reason for Visit Acidosis, lactic Adrenal insufficiency CHERYLE (acute kidney injury) Dehydration Diarrhea Elevated troponin Encephalopathy Hypokalemia Leukocytosis Chief Complaint CHERYLE CHERYLE CHERYLE CHERYLE CHERYLE CHERYLE CHERYLE Reason for Visit Acidosis, lactic Adrenal insufficiency CHERYLE (acute kidney injury) Dehydration Diarrhea Elevated troponin Encephalopathy Hypokalemia Leukocytosis Chief Complaint Admit Date NEED ORDER July 19, 2024 9 :55am palpitations August 08, 2024 9:54pm Diabetes August 19, 2024 11:1 5am STANDING ORDER September 14, 2024 11:0 9am Reason for Visit Admit Date HTN (hypertension) August 19, 2024 11:1 5am Hypothyroidism August 19, 2024 11:1 5am Type 1 diabetes mellitus with hyperglyce josh August 19, 2024 11:15am Chief Complaint Admit Date palpitations August 08, 2024 9:54pm Diabetes August 19, 2024 11:1 5am STANDING ORDER September 14, 2024 11:0 9am 6 Wk FU September 29, 2024 10: 46am AFIB ([facility]) September 29, 2024 2:1 2pm 8 Wk FU November 24, 2024 11:0 5am Reason for Visit Admit Date HTN (hypertension) August 19, 2024 11:1 5am Hypothyroidism August 19, 2024 11:1 5am Type 1 diabetes mellitus with hyperglyce josh August 19, 2024 11:15am HTN (hypertension) September 29, 2024 10: 46am Hypothyroidism September 29, 2024 10: 46am Osteoporosis September 29, 2024 10: 46am Type 1 diabetes mellitus with hyperglyce josh September 29, 2024 10:46am SVT (supraventricular tachycardia) September 29, 2024 2:12pm Chief Complaint Admit Date STANDING ORDER September 14, 2024 11:0 9am 6 Wk FU September 29, 2024 10: 46am AFIB ([facility]) September 29, 2024 2:1 2pm 8 Wk FU November 24, 2024 11:0 5am ARRYHTHMIA December 23, 2024 1:04 pm Reason for Visit Admit Date HTN (hypertension) September 29, 2024 10: 46am Hypothyroidism September 29, 2024 10: 46am Osteoporosis September 29, 2024 10: 46am Type 1 diabetes mellitus with hyperglyce josh September 29, 2024 10:46am SVT (supraventricular tachycardia) September 29, 2024 2:12pm HTN (hypertension) November 24, 2024 11:0 5am Hypothyroidism November 24, 2024 11:0 5am Osteoporosis November 24, 2024 11:0 5am Type 1 diabetes mellitus with hyperglyce josh November 24, 2024 11:05am Vitamin D deficiency November 24, 2024 11: 05am Chief Complaint Admit Date STANDING ORDER September 14, 2024 11:0 9am 6 Wk FU September 29, 2024 10: 46am AFIB (WC) September 29, 2024 2:1 2pm 8 Wk FU November 24, 2024 11:0 5am ARRYHTHMIA December 23, 2024 1:04 pm DKA January 04, 2025 8:51 am Reason for Visit Admit Date HTN (hypertension) September 29, 2024 10: 46am Hypothyroidism September 29, 2024 10: 46am Osteoporosis September 29, 2024 10: 46am Type 1 diabetes mellitus with hyperglyce josh September 29, 2024 10:46am SVT (supraventricular tachycardia) September 29, 2024 2:12pm HTN (hypertension) November 24, 2024 11:0 5am Hypothyroidism November 24, 2024 11:0 5am Osteoporosis November 24, 2024 11:0 5am Type 1 diabetes mellitus with hyperglyce josh November 24, 2024 11:05am Vitamin D deficiency November 24, 2024 11: 05am Acute hypotension January 04, 2025 8:51 am Acute metabolic encephalopathy December 8:51am Acute prerenal azotemia January 04, 2025 8:51am Acute renal insufficiency January 04 8:51am Atrial fibrillation with rapid ventricul ar response January 04, 2025 8:51am Diabetic ketoacidosis associ ated with type 1 diabetes mellitus January 04, 2025 8:51am Rheumatoid arthritis January 04, 2025 8:5 1am Hypothyroidism January 04, 2025 8:51 am Chief Complaint Admit Date STANDING ORDER September 14, 2024 11:0 9am 6 Wk FU September 29, 2024 10: 46am AFIB (WC) September 29, 2024 2:1 2pm 8 Wk FU November 24, 2024 11:0 5am ARRYHTHMIA December 23, 2024 1:04 pm DKA January 04, 2025 8:51 am DKA January 04, 2025 6:26 pm Reason for Visit Admit Date HTN (hypertension) September 29, 2024 10: 46am Hypothyroidism September 29, 2024 10: 46am Osteoporosis September 29, 2024 10: 46am Type 1 diabetes mellitus with hyperglyce rust September 29, 2024 10:46am SVT (supraventricular tachycardia) September 29, 2024 2:12pm HTN (hypertension) November 24, 2024 11:0 5am Hypothyroidism November 24, 2024 11:0 5am Osteoporosis November 24, 2024 11:0 5am Type 1 diabetes mellitus with hyperglyce josh November 24, 2024 11:05am Vitamin D deficiency November 24, 2024 11: 05am Acute hypotension January 04, 2025 8:51 am Acute metabolic encephalopathy December 8:51am Acute prerenal azotemia January 04, 2025 8:51am Acute renal insufficiency January 04 8:51am Atrial fibrillation with rapid ventricul ar response January 04, 2025 8:51am Diabetic ketoacidosis associ ated with type 1 diabetes mellitus January 04, 2025 8:51am Rheumatoid arthritis January 04, 2025 8:5 1am Hypothyroidism January 04, 2025 8:51 am Diabetic ketoacidosis January 04, 2025 8: 51am Chief Complaint Admit Date 8 Wk FU November 24, 2024 11:0 5am ARRYHTHMIA December 23, 2024 1:04 pm DKA January 04, 2025 8:51 am DKA January 04, 2025 6:26 pm PCI January 05, 2025 5:16 am DKA January 05, 2025 3:26 pm 10 Wk FU, RS 01/24February 09, 2025 9: 44am Reason for Visit Admit Date HTN (hypertension) November 24, 2024 11:0 5am Osteoporosis November 24, 2024 11:0 5am Type 1 diabetes mellitus with hyperglyce josh November 24, 2024 11:05am Vitamin D deficiency November 24, 2024 11: 05am Hypothyroidism November 24, 2024 11:0 5am Diabetic ketoacidosis January 04, 2025 8: 51am Acute hypotension January 04, 2025 8:51 am Acute metabolic encephalopathy December 8:51am Acute prerenal azotemia January 04, 2025 8:51am Acute renal insufficiency January 04 8:51am Atrial fibrillation with rapid ventricul ar response January 04, 2025 8:51am Diabetic ketoacidosis associ ated with type 1 diabetes mellitus January 04, 2025 8:51am Hypothyroidism January 04, 2025 8:51 am Rheumatoid arthritis January 04, 2025 8:5 1am HTN (hypertension) February 09, 2025 9: 44am Osteoporosis February 09, 2025 9: 44am Type 1 diabetes mellitus with hyperglyce josh February 09, 2025 9:44am Vitamin D deficiency February 09, 2025 9 :44am Family History No Family History Records Found Relationship Condition Age at Onset Recorded Date/T cary mother Diabetes mellitus Unknown Cardiac disease Unknown father Diabetes mellitus Unknown Malignant neoplasm Unknown Advance Directives No Advanced Directives Records Found Advance Directive Response Recorded Date/ Time Living Will No February 25, 2017 5:33pm Power of Drill Operator No February 5:33pm Advance Directive Response Recorded Date/ Time Living Will No November 29, 2021 1:20pm Power of Drill Operator No November 29 1:20pm Advance Directive Response Recorded Date/ Time Living Will No March 15, 2022 6:11pm Power of Drill Operator No February 6:11pm Advance Directive Response Recorded Date/ Time Living Will No March 15, 2022 5:11pm Power of Drill Operator No February 5:11pm Advance Directive Response Recorded Date/ Time Living Will No January 10, 2023 7:59am Power of Drill Operator No January 10 7:59am Advance Directive Response Recorded Date/ Time Living Will No January 14, 2023 9:43am Power of Drill Operator No January 14 9:43am Advance Directive Response Recorded Date/ Time Living Will No January 14, 2023 8:43am Power of Drill Operator No January 14 8:43am Advance Directive Response Recorded Date/ Time Living Will No October 08, 2023 12:17pm Power of Drill Operator No October 07 12:17pm Advance Directive Response Recorded Date/ Time Living Will No October 08, 2023 8:07pm Power of Drill Operator No October 07 8:07pm Advance Directive Response Recorded Date/ Time Living Will Yes August 08 10:59pm Do you have a Healthcare Power of Drill Operator? Yes August 08, 2024 10:59pm Name of Medical Power of Drill Operator unknown August 08, 2024 10:59pm Advance Directive Response Recorded Date/ Time Do you have a Healthcare Power of Drill Operator? 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 Long-term use of high-risk medication 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, senior living, current use Rheumatoid factor positive Primary hypertension Hypoalbuminemia Hyponatremia Hypothyroidism, unspecified type Type 1 diabetes mellitus with hyperglycemia Pain and swelling of left knee Bilateral hand pain Bilateral wrist pain Disorder of bone and cartilage Primary osteoarthritis of both hands Normochromic normocytic anemia Christopher Rose Jr., [address] [place] [address] Referral ID Status Reason Start Date Expiration Date V isits Requested Visits Authorized [id number] New Request 12/04/2022 12/29/2023 1 1 Scheduling Instructions . 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 Rheumatoid factor positive Primary hypertension Hypoalbuminemia Hyponatremia Hypothyroidism, unspecified type Type 1 diabetes mellitus with hyperglycemia Pain and swelling of left knee Bilateral hand pain Bilateral wrist pain Disorder of bone and cartilage Primary osteoarthritis of both hands Normochromic normocytic anemia Christopher Rose Jr., [address] [place] [address] Referral ID Status Reason Start Date Expiration Date V isits Requested Visits Authorized [id number] New Request 12/04/2022 12/29/2023 1 1 Specialty Diagnoses / Procedures Referred By Antoinette ma Referred To Contact Diagnoses Rheumatoid arthritis involving multiple sites with positive rheumatoid factor Abnormal ANCA test CRP elevated H/O total shoulder replacement, right 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 Long-term use of high-risk medication 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, senior living, current use Rheumatoid factor positive Visit for monitoring Actemra therapy Osteoarthritis of carpometacarpal (CMC) joint of both thumbs Primary osteoarthritis of both hands Primary osteoarthritis of both wrists Christopher Rose Jr., DO [address] [place] [address] Referral ID Status Reason Start Date Expiration Date V isits Requested Visits Authorized [id number] Pending Review 1 1 Specialty Diagnoses / Procedures Referred By Contac t Referred To Contact Chemotherapy Diagnoses Rheumatoid arthritis involving multiple sites with positive rheumatoid factor Abnormal ANCA test CRP elevated H/O total shoulder replacement, right 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 Long-term use of high-risk medication 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, long term 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, 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 Rheumatoid factor positive Visit for monitoring Actemra therapy Osteoarthritis of carpometacarpal (CMC) joint of both thumbs Primary osteoarthritis of both hands Primary osteoarthritis of both wrists Rose Menchaca, Christopher Nieves, DO [address] [place] [address] [facility] [address] [place] [address] Referral ID Status Reason Start Date Expiration Date V isits Requested Visits Authorized [id number] Authorized 01/16/2024 02/09/2025 1 1 Additional Source Comments Goals (unrecognized section and content) Goals may be documented in a n alternate sectionGoals may be documented in an alternate sectionGoals may be documented in an alternate sectionGoals may be documented in an alternate sectionGoals may be documented in an alternate sectionGoals may be documented in an alternate sectionGoals may be documented in an alternate sectionGoals may be documented in an alternate sectionGoals may be documented in an alternate sectionGoals may be documented in an alternate section INFORMATION SOURCE (unrecogn ized section and content) DATE CREATED AUTHOR 04/12/2022 [facility] DATE CREATED AUTHOR AUTHOR'S ORGANIZ ATION 06/11/2022 [facility] DATE CREATED AUTHOR AUTHOR'S ORGANIZ ATION 01/21/2024 [facility] DATE CREATED AUTHOR AUTHOR'S ORGANIZ ATION 05/30/2024 [facility] DATE CREATED AUTHOR AUTHOR'S ORGANIZ ATION 02/10/[address] [facility] DATE CREATED AUTHOR AUTHOR'S ORGANIZ ATION 02/18/2025 [facility] DATE CREATED AUTHOR AUTHOR'S ORGANIZ ATION 04/10/2025 [facility] Care Teams (unrecognized sec tion and content) Team Status: Active Member Role Status Dates Dr. Eric Bravo DO Family Provider Active Dr. Eric Bravo DO Primary Care Provider Active Team Status: Active Member Role Status Dates Dr. Eric Bravo DO Primary Care Provider Active Dr. Eduardo Bhatt , DO Emergency Provider Active Dr. Eric De Los Santos DO Admit Provider, Attending Provider, Other Provider Active Team Status: Inactive Member Role Status Dates Dr. Eric Bravo DO Primary Care Provider Active Dr. Eduardo Bhatt , DO Emergency Provider Active Dr. Eric De Los Santos DO Admit Provider, Attending Pro vider Active Team Status: Inactive Member Role Status Dates Dr. Eric Bravo DO Primary Care Provider Active Dr. Kelly Soto MD Attending Provider, Referring Pro vider Active Team Status: Inactive Member Role Status Dates Dr. Eric Bravo DO Primary Care Provider, Attendin g Provider Active Epic Interface Analyst Relationship Specialty Start Date End Date Eric Bravo DO [address] [place] [id number] PCP - General Family Medicine 12/04/22 Team Status: Inactive Member Role Status Dates Dr. Eric Bravo DO Primary Care Provider Active Dr. Christopher Rose Jr., MD Attending Provider, Ref erring Provider Active Team Status: Inactive Member Role Status Dates Dr. Eric Bravo DO Primary Care Prov ider, Attending Provider, Referring Provider Active Team Status: Active Member Role Status Dates Dr. Eric Bravo DO Primary Care Provider Active Dr. Farnklyn Silva MD Emergency Provider Active Dr. Leyda Garcia MD Attending Provider Active Team Status: Active Member Role Status Dates Dr. Eric Bravo DO Primary Care Provider Active Dr. Franklyn Silva MD Emergency Provider Active Dr. Leyda Garcia MD Admit Provider, Other Provider Active Wan Oh MD Attending Provider, Other Provider Active Dr. Lana Parks MD Other Provider Active Team Status: Active Member Role Status Dates Dr. Eric Bravo DO Primary Care Provider Active Dr. Franklyn Silva MD Emergency Provider Active Dr. Leyda Garcia MD Admit Provider, Other Provider Active Wan Oh MD Other Provider Active Dr. Lana Parks MD Attending Provider, Other Prov ider Active Team Status: Active Member Role Status Dates Dr. Eric Bravo DO Primary Care Provider Active Dr. Franklyn Silva MD Emergency Provider Active Dr. Leyda Garcia MD Admit Provider, Other Provider Active Wan Oh MD Other Provider Active Dr. Eduardo Hicks DO Attending Provider, Other Provid er Active Dr. Lana Parks MD Other Provider Active Team Status: Inactive Member Role Status Dates Dr. Eric Bravo DO Primary Care Provider Active Dr. Franklyn Silva MD Emergency Provider Active Dr. Leyda Garcia MD Admit Provider, Other Provider Active Wan Oh MD Other Provider Active Dr. Eduardo Hicks DO Attending Provider Active Dr. Lana Parks MD Other Provider Active Team Status: Active Member Role Status Dates Dr. Eric Bravo DO Primary Care Provider Active Dr. Franklyn Silva MD Emergency Provider Active Dr. Leyda Garcia MD Admit Provider, Other Provider Active Wan Oh MD Attending Provider, Other Provider Active Dr. Lana Parks MD Other Provider Active Dr. Eduardo Hicks DO Referring Provider Active Team Status: Inactive Member Role Status Dates Dr. Eric Bravo DO Primary Care Provider, Referrin g Provider Active Wan Oh MD Attending Provider Active Team Status: Inactive Member Role Status Dates Dr. Eric Bravo DO Primary Care Provider Active Dr. Randal Puri MD Attending Provider Active Team Status: Active Member Role Status Dates Dr. Eric Bravo DO Primary Care Provider Active Dr. Ruben Moreau MD Attending Provider Active Team Status: Active Member Role Status Dates Dr. Eric Bravo DO Primary Care Provider Active Dr. Hu Almonte MD Attending Provider, Referring Pr ovider Active Team Status: Inactive Member Role Status Dates Dr. Eric Bravo DO Primary Care Provider Active Dr. Hu Almonte MD Admit Provider, At tending Provider, Referring Provider Active Dr. Dustin Young DPM Other Provider Active Team Status: Inactive Member Role Status Dates Dr. Eric Bravo DO Primary Care Provider Active Dr. Hu Almonte MD Attending Provider, Referring Pr ovider Active Team Status: Active Member Role Status Dates Dr. Eric Bravo DO Primary Care Provider Active Dr. Ruben Moreau MD Attending Provider Active Dr. Hu Almonte MD Referring Provider Active Team Status: Active Member Role Status Dates Dr. Eric Barvo DO Primary Care Provider Active Dr. Daniel Rubin MD Attending Provider Activ e Team Status: Inactive Member Role Status Dates Dr. Verna Tyler MD Attending Provider, Referr ing Provider Active Dr. Eric Bravo DO Primary Care Provider Active Epic Interface Analyst Relationship Specialty Start Date End Date Eric Bravo DO [address] [place] [address] PCP - General Family Medicine 12/04/22 Epic Interface Analyst Relationship Specialty Start Date End Date Eric Bravo DO [address] [place] [address] PCP - General Family Medicine 12/04/22 Epic Interface Analyst Relationship Specialty Start Date End Date Eric Bravo DO [address] [place] [phone] PCP - General Family Medicine 12/04/22 Team Status: Active Member Role Status Dates Dr. Eric Bravo DO Primary Care Provider Active Dr. Brandy Green MD Emergency Provider Active Dr. Eduardo Hicks DO Admit Provider, At tending Provider, Other Provider Active Team Status: Active Member Role Status Dates Dr. Eric Bravo DO Primary Care Provider Active Dr. Christopher Rose Jr., MD Attending Provider, Ref erring Provider Active Team Status: Active Member Role Status Dates Dr. Eric Bravo DO Primary Care Provider Active Dr. Brandy Green MD Emergency Provider Active Dr. Eduardo Hicks DO Admit Provider, Attending Provid er Active Team Status: Active Member Role Status Dates Dr. Eric Bravo DO Primary Care Provider Active Dr. Brandy Green MD Emergency Provider Active Dr. Eduardo Hicks DO Admit Provider, Other Provider A ctive Dr. Kenneth Chin MD Attending Provider, Other Provi shimon Active Team Status: Inactive Member Role Status Dates Dr. Eric Bravo DO Primary Care Provider Active Dr. Brandy Green MD Emergency Provider Active Dr. Eduardo Hicks , DO Admit Provider, Other Provider A ctive Dr. Kenneth Chin MD Attending Provider Active Epic Interface Analyst Relationship Specialty Start Date End Date Eric Bravo DO [address] [place] [phone] PCP - General Family Medicine 12/04/22 Epic Interface Analyst Relationship Specialty Start Date End Date Eric Bravo DO [address] [place] [phone] PCP - General Family Medicine 12/04/22 Epic Interface Analyst Relationship Specialty Start Date End Date Eric Bravo DO [address] [place] [phone] PCP - General Family Medicine 12/04/22 Epic Interface Analyst Relationship Specialty Start Date End Date Eric Bravo DO [address] [place] [phone] PCP - General Family Medicine 12/04/22 Epic Interface Analyst Relationship Specialty Start Date End Date Eric Bravo DO [address] [place] [phone] PCP - General Family Medicine 12/04/22 Epic Interface Analyst Relationship Specialty Start Date End Date Eric Bravo DO [address] [place] [phone] PCP - General Family Medicine 12/04/22 Epic Interface Analyst Relationship Specialty Start Date End Date Eric Bravo DO [address] [place] [phone] PCP - [facility] Family Medicine 12/04/22 Epic Interface Analyst Relationship Specialty Start Date End Date Eric Bravo DO [address] [place] [phone] PCP - General [facility] Medicine 12/04/22 Team Status: Active Member Role Status Dates Dr. Eric Bravo DO Primary Care Provider Active Team Status: Inactive Member Role Status Dates Dr. Eric Bravo DO Primary Care Provider Active Start: May 24, 2024 End: May 24, 2024 Dr. Christopher Rose Jr., MD Attending Provider Acti ve Start: May 24, 2024 End: May 24, 2024 Dr. Christopher Rose Jr., MD Referring Provider Acti ve Start: May 24, 2024 End: May 24, 2024 Team Status: Inactive Member Role Status Dates Dr. Eric Bravo DO Primary Care Provider Active Start: July 19, 2024 End: July 19, 2024 Dr. Christopher Rose Jr., MD Attending Provider Acti ve Start: July 19, 2024 End: July 19, 2024 Dr. Christopher Rose Jr., MD Referring Provider Acti ve Start: July 19, 2024 End: July 19, 2024 Team Status: Inactive Member Role Status Dates Dr. Eric Bravo DO Primary Care Provider Active Start: August 08, 2024 End: August 09, 2024 Dr. Demarcus Morales DO Attending Provider Active Start : August 08, 2024 End: August 09, 2024 Dr. Demarcus Morales DO Referring Provider Active Start : August 08, 2024 End: August 09, 2024 Dr. Demarcus Morales DO Emergency Provider Active Start : August 08, 2024 End: August 09, 2024 Team Status: Inactive Member Role Status Dates Dr. Eric Bravo DO Primary Care Provider Active Start: August 19, 2024 End: August 19, 2024 Dr. Eric Bravo DO Referring Provider Active Start: August 19, 2024 End: August 19, 2024 MANISH Nguyen Attending Provider Active Start: August 19, 2024 End: August 19, 2024 Team Status: Inactive Member Role Status Dates Dr. Eric Bravo DO Primary Care Provider Active Start: September 14, 2024 End: September 14, 2024 Dr. Christopher Rose Jr., MD Attending Provider Acti ve Start: September 14, 2024 End: September 14, 2024 Dr. Christopher Rose Jr., MD Referring Provider Acti ve Start: September 14, 2024 End: September 14, 2024 Epic Interface Analyst Relationship Specialty Start Date End Date Eric Bravo DO PCP - General Family Medicine 12/04/22 Team Status: Inactive Member Role Status Dates Dr. Eric Bravo DO Primary Care Provider Active Start: September 29, 2024 End: September 29, 2024 Dr. Eric Bravo DO Referring Provider Active Start: September 29, 2024 End: September 29, 2024 MANISH Nguyen Attending Provider Active Start: September 29, 2024 End: September 29, 2024 Team Status: Inactive Member Role Status Dates Dr. Eric Bravo DO Primary Care Provider Active Start: September 29, 2024 End: September 29, 2024 Dr. Eric Bravo DO Referring Provider Active Start: September 29, 2024 End: September 29, 2024 Dr. Randal Puri MD Attending Provider Active S tart: September 29, 2024 End: September 29, 2024 Team Status: Inactive Member Role Status Dates Dr. Eric Bravo DO Primary Care Provider Active Start: November 24, 2024 End: November 24, 2024 Dr. Eric Bravo DO Referring Provider Active Start: November 24, 2024 End: November 24, 2024 MANISH Nguyen Attending Provider Active Start: November 24, 2024 End: November 24, 2024 Epic Interface Analyst Relationship Specialty Start Date End Date Eric Bravo DO [address] [place] [phone] PCP - General Family Medicine 12/04/22 Team Status: Active Member Role/Relationship Status Dates Dr. Eric Bravo DO Primary Care Provider Active Team Status: Inactive Member Role/Relationship Status Dates Dr. Eric Bravo DO Primary Care Provider Active Start: September 14, 2024 End: September 14, 2024 Dr. Christopher Rose Jr., MD Attending Provider Acti ve Start: September 14, 2024 End: September 14, 2024 Dr. Christopher Rose Jr., MD Referring Provider Acti ve Start: September 14, 2024 End: September 14, 2024 Team Status: Inactive Member Role/Relationship Status Dates Dr. Eric Bravo DO Primary Care Provider Active Start: September 29, 2024 End: September 29, 2024 Dr. Eric Bravo DO Referring Provider Active Start: September 29, 2024 End: September 29, 2024 MANISH Nguyen Attending Provider Active Start: September 29, 2024 End: September 29, 2024 Team Status: Inactive Member Role/Relationship Status Dates Dr. Eric Bravo DO Primary Care Provider Active Start: September 29, 2024 End: September 29, 2024 Dr. Eric Bravo DO Referring Provider Active Start: September 29, 2024 End: September 29, 2024 Dr. Randal Puri MD Attending Provider Active S tart: September 29, 2024 End: September 29, 2024 Team Status: Inactive Member Role/Relationship Status Dates Dr. Eric Bravo DO Primary Care Provider Active Start: November 24, 2024 End: November 24, 2024 Dr. Eric Bravo DO Referring Provider Active Start: November 24, 2024 End: November 24, 2024 MANISH Nguyen Attending Provider Active Start: November 24, 2024 End: November 24, 2024 Team Status: Inactive Member Role/Relationship Status Dates Dr. Eric Bravo DO Primary Care Provider Active Start: December 23, 2024 End: December 23, 2024 Dr. Randal Puri MD Attending Provider Active S tart: December 23, 2024 End: December 23, 2024 Dr. Randal Puri MD Referring Provider Active S tart: December 23, 2024 End: December 23, 2024 Team Status: Active Member Role/Relationship Status Dates Dr. Eric Bravo DO Primary Care Provider Active Start: December 23, 2024 Dr. Randal Puri MD Attending Provider Active S tart: December 23, 2024 Team Status: Active Member Role/Relationship Status Dates Dr. Eric Bravo DO Primary Care Provider Active Start: January 04, 2025 Dr. Dima Smith MD Emergency Provider Active Sta rt: January 04, 2025 Dr. Eric De Los Santos DO Admit Provider Active S tart: January 04, 2025 Dr. Eric De Los Santos DO Attending Provider Active Start: January 04, 2025 Team Status: Inactive Member Role/Relationship Status Dates Dr. Eric Bravo DO Primary Care Provider Active Start: January 04, 2025 End: January 05, 2025 Dr. Dima Smith MD Emergency Provider Active Sta rt: January 04, 2025 End: January 05, 2025 Dr. Eric De Los Santos DO Admit Provider Active S tart: January 04, 2025 End: January 05, 2025 Dr. Eric De Los Santos DO Attending Provider Active Start: January 04, 2025 End: January 05, 2025 Team Status: Active Member Role/Relationship Status Dates Dr. Eric Bravo DO Primary Care Provider Active Start: January 04, 2025 Dr. Dima Smith MD Emergency Provider Active Sta rt: January 04, 2025 Dr. Eric De Los Santos DO Admit Provider Active S tart: January 04, 2025 Dr. Eric De Los Santos DO Attending Provider Active Start: January 04, 2025 Dr. Eric De Los Santos DO Other Provider Active S tart: January 04, 2025 Epic Interface Analyst Relationship Specialty Start Date End Date Eric Bravo DO [address] [place] [phone] PCP - General Family Medicine 12/04/22 Team Status: Inactive Member Role/Relationship Status Dates Dr. Eric Bravo DO Primary Care Provider Active Start: November 24, 2024 End: November 24, 2024 Dr. Eric Bravo DO Referring Provider Active Start: November 24, 2024 End: November 24, 2024 MANISH Nguyen Attending Provider Active Start: November 24, 2024 End: November 24, 2024 Team Status: Inactive Member Role/Relationship Status Dates Dr. Eric Bravo DO Primary Care Provider Active Start: December 23, 2024 End: December 23, 2024 Dr. Randal Puri MD Attending Provider Active S tart: December 23, 2024 End: December 23, 2024 Dr. Randal Puri MD Referring Provider Active S tart: December 23, 2024 End: December 23, 2024 Team Status: Active Member Role/Relationship Status Dates Dr. Eric Bravo DO Primary Care Provider Active Start: December 23, 2024 Dr. Randal Puri MD Attending Provider Active S tart: December 23, 2024 Team Status: Inactive Member Role/Relationship Status Dates Dr. Eric Bravo DO Primary Care Provider Active Start: January 04, 2025 End: January 05, 2025 Dr. Dima Smith MD Emergency Provider Active Sta rt: January 04, 2025 End: January 05, 2025 Dr. Eric De Los Santos DO Admit Provider Active S tart: January 04, 2025 End: January 05, 2025 Dr. Eric De Los Santos DO Attending Provider Active Start: January 04, 2025 End: January 05, 2025 Team Status: Active Member Role/Relationship Status Dates Dr. Eric Bravo DO Primary Care Provider Active Start: January 04, 2025 Dr. Dima Smith MD Emergency Provider Active Sta rt: January 04, 2025 Dr. Eric De Los Santos DO Admit Provider Active S tart: January 04, 2025 Dr. Eric De Los Santos DO Attending Provider Active Start: January 04, 2025 Dr. Eric De Los Santos DO Other Provider Active S tart: January 04, 2025 Team Status: Active Member Role/Relationship Status Dates Dr. Eric Bravo DO Primary Care Provider Active Start: January 05, 2025 Dr. Tu Lake MD Attending Provider Active Start: January 05, 2025 Dr. Tu Lake MD Referring Provider Active Start: January 05, 2025 Team Status: Active Member Role/Relationship Status Dates Dr. Eric Bravo DO Primary Care Provider Active Start: January 05, 2025 Dr. Dima Smith MD Emergency Provider Active Sta rt: January 05, 2025 Dr. Eric De Los Santos DO Admit Provider Active S tart: January 05, 2025 Dr. Eric De Los Santos DO Attending Provider Active Start: January 05, 2025 Dr. Eric De Los Santos DO Other Provider Active S tart: January 05, 2025 Team Status: Inactive Member Role/Relationship Status Dates Dr. Eric Bravo DO Primary Care Provider Active Start: February 09, 2025 End: February 09, 2025 Dr. Eric Bravo DO Referring Provider Active Start: February 09, 2025 End: February 09, 2025 Erin Landis NP-C Attending Provider Active Start: February 09, 2025 End: February 09, 2025 Epic Interface Analyst Relationship Specialty Start Date End Date Eric Bravo DO [address] [place] [address] [place] [phone] PCP - General Family Medicine 12/04/22 Epic Interface Analyst Relationship Specialty Start Date End Date Eric Bravo DO [address] [place] [address] [place] [phone] PCP - General Family Medicine 12/04/22 Reason for Visit (unrecogniz ed section and content) Reason Comments Infusion Visit [facility] Specialty Diagnoses / Procedures Referred By Contac t Referred To Contact Diagnoses Rheumatoid arthritis involving multiple sites with positive rheumatoid factor Rose Menchaca, Christopher Nieves DO [address] [place] [phone] Phone: tel: fax: Referral ID Status Reason Start Date Expiration Date V isits Requested Visits Authorized [id number] New Request 01/16/2024 02/09/2025 1 1 Reason Comments Infusion Visit Reason Comments Infusion Visit [facility] IV Specialty Diagnoses / Procedures Referred By Contac t Referred To Contact Diagnoses Rheumatoid arthritis involving multiple sites with positive rheumatoid factor Rose Menchaca, Christopher Nieves, DO [address] [id number] Reason Comments New Patient Patient was referred [...] she is having pain in right knee. Referral ID Status Reason Start Date Expiration Date V isits Requested Visits Authorized [id number] New Request 09/12/2023 10/06/2024 1 1 Reason Comments Follow-up Patient is here toda y for her 4 Month Follow-up. Patient states she had one infusion then stopped because it caused dizziness and she did not feel good. Patient states she is not having joint pain. Reason Comments Follow-up Patient is here toda y for her 4 Month Follow-up. Patient states she is doing okay since her last appointment. Patient is having left knee pain. Patient states the [facility] infusions are working, she has an infusion appointment today. Reason Comments Follow-up Pt here for a 4 polina h follow up Reason Comments Follow-up Patient is here for 4 month Follow-up. Patient states is doing well overall. States is having pain in left knee. Rheumatoid Arthritis FOR RECORDS PERTAINING TO PATIENTS WHO ARE [...] BE BASED ON THE PRIMARY CLINICAL RECORDS. [employer] provides no warranty or guarantee of the accuracy or completeness of information in this document.
[2025-06-10 21:21] LABS: Hematocrit 42.4 % (37-47); Hemoglobin 14.3 g/dL (12.0-15.0); Mean Corp Hgb Conc 33.7 g/dL (32-36); Mean Corpuscular Volume 87.2 fL (81-99); Mean Platelet Vol. 12.2 fl (6.2-12.0); Platelet Count 252 K/mm3 (150-450); RBC Distribution Width CV 13.1 % (11.6-14.6); RBC Distribution Width SD 41.7 fl (35.1-43.9); Red Blood Count 4.86 M/mm3 (4.2-5.4); White Blood Count 15.0 K/mm3 (4.4-11.0)
[2025-06-10] MEDS: 0.9% Normal Saline (500mL Bag) 500 ML 999 ML IV (21:33)
[2025-06-10 22:03] LABS: Troponin T High Sensitivity 29 ng/L (<=14)
--- NOTE | 2025-06-10 22:41 | EKG12_ITS ---
Test Reason : RHYTHM CHANGE Blood Pressure : */* mmHG Vent. Rate : 69 BPM Atrial Rate : 69 BPM P-R Int : 176 ms QRS Dur : 72 ms QT Int : 446 ms P-R-T Axes : 64 4 87 degrees QTcB Int : 477 ms Normal sinus rhythm Nonspecific ST abnormality Abnormal ECG Confirmed by Christopher Parra ([id number]), editor continuity and script NATI HUGO ([id number]) on 06/17/2025 6:51:33 AM Referred By: DM Confirmed By: Christopher Parra
[2025-06-10 23:06] LABS: Anion Gap 13 (7-18); BUN 27 mg/dL (4-19); BUN/Creat Ratio 30.7 RATIO (10-20); Calcium,Total 7.3 mg/dL (7.6-11.0); Carbon Dioxide 11.4 mmol/L (20.0-29.0); Chloride 109 mmol/L (96-106); Estimated Creatinine Clearance 49.34 ml/min (50-250); Glucose 166 mg/dL (70-99); Potassium 3.6 mmol/L (3.5-5.1)
[2025-06-10 23:17] LABS: Troponin T High Sens 2 HR 27 ng/L (<=14)
--- NOTE | 2025-06-10 23:32 | EDS_ITS ---
HPI History of Present Illness Chief Complaint: Nausea/Vomiting Detail of Chief Complaint: Nausea, fatigue, chest pain Informant: patient and spouse/S.O. Onset/Context/Timing Onset: Today and Hours (Started approximately 12 hours prior to presentation) Context: Sudden Onset Timing: Continuous (Patient states she does not feel right. She noted that her heart rate was fast when she started to feel unwell.) Quality: Fast heart rate with not feeling well and chest pressure Location: Midsternal/cardiovascular Current Severity: Mild Maximum Severity: Moderate Worsened by: Nothing specific Relieved by: Nothing Associated Symptoms Associated Symptoms: Nausea Narrative Narrative: Patient is a 74-year-old woman. She is seeing Dr. Peterson for atrial f ibrillation, PSVT and ectopic atrial rhythm. Her office records and ER and admission records were reviewed. Patient was treated with Cardizem for her atrial fibs which spontaneously converted and placed on metoprolol. She is no longer on metoprolol. She presents today because of not feeling well. The started late this morning. She felt that her heart was beating fast. She had some mild shortness of breath and chest pressure that was retrosternal. She had some pain that went to her back as well. It was not ripping or tearing. She denies orthopnea, PND, dyspnea on exertion. She denies fever, chills night sweats. She denies weight gain or weight loss. She denies head pain, ocular, visual or auditory symptoms. Patient denies cough. Patient denies pain with breathing. There is no history of PE or DVT. She is presently on no anticoagulant. She denies abdominal pain, black or maroon-colored stool. Prior similar symptoms: Yes Recent Illness/Hospitalization: No [facility] Medical History Hypothyroidism Acute hypotension Acute prerenal azotemia Acute renal insufficiency Atrial fibrillation with rapid ventricular response Acute metabolic encephalopathy Diabetic ketoacidosis associated with type 1 diabetes mellitus SVT (supraventricular tachycardia) Palpitations Vitamin D deficiency Statin intolerance Atrial fibrillation Thrombocytopenia Left lower lobe pneumonia Hypokalemia CHERYLE (acute kidney injury) Osteoporosis Debility Inability to walk Chronic anemia Rheumatoid arthritis HTN (hypertension) Home Medications ?Medication ?Instructions ?Recorded ?Last Taken ?Type folic acid 1 mg tablet 1 mg PO DAILY supplement 01/03/25 History acetaminophen 500 mg tablet 1,000 mg PO Q8 PRN fever o r pain 04/12/24 Unknown History 1-10 prednisone 5 mg tablet 4 mg PO QDAY inflama 09/29/2 5 01/04/25 History multivitamin with minerals-folic 1 tab PO ONCE supplem ent 11/24/24 01/04/25 History acid 80 mcg chewable tablet (Centrum Adult 50 Plus) insulin lispro 100 unit/mL 10 unit (0.1 mL) subcut TID #15 mL 01/05/25 01/04/25 Rx subcutaneous pen (Humalog KwikPen (U-100) Insulin) losartan 25 mg tablet 25 mg PO QDAY 02/16/25 Unkno wn History methotrexate sodium 2.5 mg tablet 22.5 mg PO QWEEK inf lammation 02/16/25 Unknown History cholecalciferol (vitamin D3) 25 25 mcg PO DAILY Unknown History mcg (1,000 unit) capsule ezetimibe 10 mg tablet 10 mg PO QDAY 05/18/25 Unkno wn History leucovorin calcium 5 mg tablet 5 mg PO QWEEK 05/18/25 Unknown History tocilizumab 400 mg/20 mL (20 See Rx Instructions .Rout e .COMPLEX 05/18/25 Unknown History mg/mL) intravenous solution zoledronic acid 5 mg/100 mL in See Rx Instructions .Ro [place] 05/18/25 Unknown Rx mannitol 5 %-water intravenous .COMPLEX #100 mL piggybck levothyroxine 137 mcg tablet 137 mcg PO DAILY #90 tabs 05/19/25 Unknown Rx (Synthroid) insulin glargine 100 unit/mL (3 17 unit subcut DAILY d iabetes 06/10/25 Unknown History mL) subcutaneous pen (Lantus Solostar U-100 Insulin) metoprolol succinate 25 mg 25 mg PO DAILY 30 days #30 tabs 06/10/25 Unknown Rx tablet,extended release 24 hr metoprolol tartrate PO BID 06/10/25 Unknown Hist ory Allergy/AdvReac Type Severity Reaction Status Date / Time rosuvastatin Allergy Intermediate Illness Verified 06/10/25 19:54 lisinopril AdvReac Intermediate Cough Verified 06/10/25 19:54 egg (eggs) AdvReac Vomiting Verified 06/10/25 19:54 Family History Mother Diabetes Heart disease Father Diabetes Cancer Throat cancer Surgical History s/p right shoulder surgery H/O: Social History household members: spouse Smoking Status: Never smoker alcohol intake: never substance use type: does not use ROS ROS ED Constitutional Constitutional ED: Denies chills, fever(s), subjective, sweats or weight loss Eyes Eyes: Denies blurry vision or change in vision ENT ENT ED: Denies ear pain or rhinorrhea Cardiovascular Cardiovascular: Reports chest pain, palpitations and racing heartbeat; Denies orthopnea or paroxysmal nocturnal dyspnea Respiratory/Chest Respiratory/Chest: Reports dyspnea; Denies cough, dyspnea on exertion, orthopnea or paroxysmal nocturnal dyspnea Gastrointestinal Gastrointestinal: Reports nausea; Denies abdominal pain, melena or vomiting Genitourinary Genitourinary ED: Denies dysuria, hematuria or urinary frequency Musculoskeletal Musculoskeletal: Reports back pain; Denies arthralgias, myalgias or neck pain Integumentary Denies rash Neurologic Neurologic: Denies headache(s) or paresthesias Psychiatric Psychiatric: Denies anxiety or depression Endocrine Endocrinology: Denies cold intolerance or heat intolerance Hematologic/Lymphatic Hematologic/Lymphatic: Reports systems reviewed and no addt'l complaints, except as documented EXAM Physical Exam Const Vital Signs: 06/10/25 19:52 06/10/25 20:12 06/10/25 20:15 Temperature 97.6 F L Temperature Source Oral Pulse Rate 145 H 137 H 144 H Respiratory Rate 22 H 24 H 23 H Blood Pressure 82/60 L Blood Pressure Mean 67 Pulse Ox 97 97 96 Oxygen Delivery Method Room Air 06/10/25 20:30 06/10/25 20:45 06/10/25 20:50 Temperature Temperature Source Pulse Rate 72 74 69 Respiratory Rate 22 H 28 H 23 H Blood Pressure 105/67 Blood Pressure Mean 79 Pulse Ox 97 98 96 Oxygen Delivery Method 06/10/25 20:57 06/10/25 21:00 06/10/25 21:15 Temperature Temperature Source Pulse Rate 71 70 67 Respiratory Rate 23 H 20 H 23 H Blood Pressure 95/57 L 90/57 L 83/51 L Blood Pressure Mean 70 69 63 Pulse Ox 98 97 95 Oxygen Delivery Method 06/10/25 21:16 06/10/25 21:20 06/10/25 22:00 Temperature Temperature Source Pulse Rate 67 64 66 Respiratory Rate 20 H 21 H 22 H Blood Pressure 87/53 L 92/50 L 113/60 Blood Pressure Mean 65 64 77 Pulse Ox 95 96 99 Oxygen Delivery Method Room Air 06/10/25 23:01 Temperature Temperature Source Pulse Rate 72 Respiratory Rate 23 H Blood Pressure 119/75 Blood Pressure Mean 89 Pulse Ox 99 Oxygen Delivery Method Room Air Positive well nourished and well developed Constitutional Narrative: Patient not appear well. Her initial blood pressure was not low. Apparently her blood pressure was low after she received the metoprolol. The monitor initially revealed atrial fibrillation with a rate of 140-150. General Appearance ED: well developed and NAD HEENT Reports moist mucous membranes HEENT Narrative: Head is atraumatic and normocephalic. Ears normal. Nares patent. Posterior pharynx is normal. Eyes PERRL and EOMs intact bilaterally General Eye ED: Negative for pale conjunctiva or scleral icterus Neck no lymphadenopathy, supple and no JVD Chest Wall inspection of chest normal and palpation of chest normal Resp normal respiratory effort and clear to auscultation bilaterally Cardio no murmurs Rate: tachycardic Rhythm: abnormal rhythm irregularly irregular GI normal to inspection, nondistended, normoactive bowel sounds, non-tender, non- distended and no masses; Negative for hepatosplenomegaly GI Narrative: There is no palpable pulsatile mass. There is no abdominal bruit. Palpation: soft Back/Spine no CVA tenderness Extremity normal to inspection Extremity Narrative: There is no asymmetry, swelling, discoloration, leg vein distention, palpable cords or tenderness along the distribution of the deep venous system. General Extremety ED: Negative for edema or tenderness General Extremity: Negative for edema Neuro oriented x3 and CN's II-XII intact bilaterally Sensorium / Orientation: alert Psych mental status grossly normal Skin no rashes or lesions noted and no wounds General Skin Exam: elasticity normal MDM MDM MDM Narrative Medical decision making narrative: Patient presents with atrial fibrillation with RVR and chest pressure. Need to rule out causes of chest pressure and atrial fibrillation i.e. myocardial infarction, hyperthyroidism, pericarditis, or due to chronic hypertension. Will obtain chest x-ray, EKG and appropriate blood work. History & Record Review Additional record(s) reviewed:: Prior inpatient record (Admission for atrial FaBB RVR new onset), Prior outpatient record ( For his records.), Prior ED visit and Prior labs Lab Data Attestation: I reviewed the patient's lab results. Lab results narrative: CBC reveals elevated white count. Otherwise unremarkable. Electrolyte panel is remarkable for mild hyponatremia and hyperchloremia. BUN/creatinine ratio is elevated. First troponin is 29 and second is 27. Labs: Laboratory Results - last 24 hr 06/10/25 06/10/25 06/10/25 20:11 20:50 22:15 WBC 15.0 H RBC 4.86 Hgb 14.3 Hct 42.4 MCV 87.2 MCH 29.4 MCHC 33.7 RDW Std Deviation 41.7 RDW Coeff of [place] 13.1 Plt Count 252 MPV 12.2 H Sodium Cancelled 133 L Potassium Cancelled 3.6 Chloride Cancelled 109 H Carbon Dioxide Cancelled 11.4 L Anion Gap Cancelled 13 BUN Cancelled 27 H Creatinine Cancelled 0.89 Estim Creat Clear Calc 49.34 L Est GFR (MDRD) Non-Af Cancelled 69 BUN/Creatinine Ratio Cancelled 30.7 H Glucose Cancelled 166 H Calcium Cancelled 7.3 L Troponin T High Sens 29 H D Troponin T Hi Sens 2 Hr 27 H POC Glucose 192 H Radiography Chest X-Ray - ED: 1 View, Read by ED Physician, Unchanged, Normal, Heart, Mediastinum, Bony Structures, No Acute Disease and Chronic Changes EKG Initial EKG: Attestation: I personally reviewed and interpreted this EKG as follows: Interpretation: Atrial Fibrillation (Atrial fibrillation rate of 140. Cures duration 76 ms. QT duration Richie 24 ms. [place] is normal. There is no obvious acute ischemic changes. There is slight ST elevation in aVR.) Prior: Changed Follow-up EKG: Attestation: I personally reviewed and interpreted this EKG as follows: Interpretation: Sinus Rhythm (Rate is 69. There is no ossific changes noted. The ST elevation in aVR is resolved. This is probably rate dependent. TN interval is 176 ms. QRS duration 72 ms. QT duration 4 and 46 ms. [place] is normal.) Management Discussion w/another healthcare provider: Hospitalist (Hospitalist called for admission. I erred when I looked at the troponin levels. The troponins did not rise as I initially thought. I was compared to an old troponin level. Patient's delta is -2. Therefore she will be discharged home with a prescription for metoprolol and to follow-up with Dr. Curran) Discharge Plan Triage Chief Complaint: Nausea/Vomiting ED Provider: Dima Ku Dx/Rx/DC Orders Clinical Impression: Atrial fibrillation with rapid ventricular response, Chest pain, Elevated troponin, Acute hypotension, Hyponatremia, Acute prerenal azotemia, Osteoporosis, Type 1 diabetes mellitus with hyperglycemia Instructions: ED AFIB Prescriptions: New metoprolol succinate 25 mg tablet extended release 24 hr 25 mg PO DAILY 30 Days Qty: 30 0RF No Action prednisone 5 mg tablet 4 mg PO QDAY Centrum Adult 50 Plus 80 mcg tablet,chewable 1 tab PO ONCE losartan 25 mg tablet 25 mg PO QDAY leucovorin calcium 5 mg tablet 5 mg PO QWEEK cholecalciferol (vitamin D3) 25 mcg (1,000 unit) capsule 25 mcg PO DAILY ezetimibe 10 mg tablet 10 mg PO QDAY tocilizumab 400 mg/20 mL (20 mg/mL) solution See Rx Instructions .ROUTE .COMPLEX Rx Instructions: 8mg/kg IV inf over 1 hr every 4 weeks. Premedicated with Benadryl 12.5 IV. Do not exceed 800 mg zoledronic [id number] 5 mg/100 mL piggyback See Rx Instructions .ROUTE .COMPLEX Qty: 100 0RF Rx Instructions: 5 mg IVPB, infuse over 20 minutes please; methotrexate sodium 2.5 mg tablet 22.5 mg PO QWEEK Patient Comments: TAKE 5 (FIVE) tablets BY MOUTH per week folic acid 1 mg tablet 1 mg PO DAILY insulin lispro [Humalog KwikPen Insulin] 100 unit/mL insulin pen 10 unit subcut TID Qty: 15 6RF acetaminophen 500 mg Tablet 1,000 mg PO Q8 PRN (Reason: fever or pain 1-10) metoprolol tartrate PO BID insulin glargine [Lantus Solostar U-100 Insulin] 100 unit/mL (3 mL) insulin pen 17 unit subcut DAILY levothyroxine [Synthroid] 137 mcg tablet 137 mcg PO DAILY Qty: 90 3RF Primary Care Provider: Eric Bravo Referrals: Randal Puri MD [Med Staff - Active Staff, Cardiology] - 5-7 Days Eric Bravo DO [Primary Care Provider, Family Practice] Activity Restrictions/Additional Instructions: 1. Take the metoprolol once a day. 2. Contact Dr. Peterson's office to be seen in the next 5 to 7 days for your rapid heart rate Print Language: Indonesian Disposition Disposition: Home, Self Care
== END 2025-06-11 | disposition home or self-care (01) ==
PROVIDERS: Emergency Provider Emergency Medicine; PCP Family Medicine; Visit Provider Emergency Medicine
DX: I48.91 Unspecified atrial fibrillation (principal); E10.65 Type 1 diabetes mellitus with hyperglycemia; Z79.4 Long term (current) use of insulin; R11.2 Nausea with vomiting, unspecified; M81.0 Age-related osteoporosis without current pathological fracture; R79.89 Other specified abnormal findings of blood chemistry; I95.9 Hypotension, unspecified; E87.1 Hypo-osmolality and hyponatremia; I10 Essential (primary) hypertension; Z79.899 Other long term (current) drug therapy; E03.9 Hypothyroidism, unspecified; Z79.890 Hormone replacement therapy; R07.9 Chest pain, unspecified
CPT/HCPCS: 80048; 82962; 84484; 85027; 93005; 96361; 96374; 99284; A4216